=== PATIENT | male | born 2005 | race Caucasian/White ===

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

== ENCOUNTER 2025-01-02 17:28 | Emergency (ER) | payer BC, MEDICAID, SELFPAY ==
[2025-01-02 17:30] VITALS: BP 147/101; PULSE 89; RESP 19; TEMP 36.8; O2SAT 98; BMI 43.3
[2025-01-02 18:09] LABS: Absolute Lymphocyte Count 1.21 X10^3/uL (0.83-4.51); Absolute Neutrophil Count 5.3 X10^3/uL (2.0-7.7); Basophil# 0.03 X10^3/uL; Basophil% 0.4 % (0-1); Eosinophil# 0.02 X10^3/uL; Eosinophils% 0.3 % (0-5); Hematocrit 45.7 % (40-54); Hemoglobin 16.2 g/dL (13.0-16.5); Lymphocyte # 1.21 X10^3/ul (0.83-4.51); Lymphocyte % 16.1 % (19-41); Mean Corp Hgb Conc 35.4 g/dL (32-36); Mean Corpuscular Hgb 29.1 pg (27.0-32.0); Mean Corpuscular Volume 82.2 fL (80-94); Mean Platelet Vol. 10.2 fl (6.2-12.0); Monocyte# 0.88 X10^3/uL; Monocyte% 11.7 % (0-10); NRBC Flagged by Analyzer 0 % (0-5); Neutrophil # 5.34 X10^3/uL (2.7-7.7); Neutrophil % 71.1 % (47-70); Platelet Count 249 K/mm3 (150-450); RBC Distribution Width CV 12.5 % (11.6-14.6); RBC Distribution Width SD 37.6 fl (35.1-43.9); Red Blood Count 5.56 M/mm3 (4.6-6.2); White Blood Count 7.5 K/mm3 (4.4-11.0)
[2025-01-02 18:27] LABS: Amphetamine Urine NEGATIVE (<1000 ng/mL); Barbiturate Urine NEGATIVE (< 200 ng/mL); Benzodiazepine Urine NEGATIVE (< 200 ng/mL); Buprenorphine Urine NEGATIVE (< 200 ng/mL); Cocaine Urine NEGATIVE (< 300 ng/mL); Fentanyl, Urine NEGATIVE; Methadone Urine NEGATIVE (< 300 ng/mL); Opiates Urine NEGATIVE (< 300 ng/mL); Oxycodone, Urine NEGATIVE (< 100 ng/mL); PCP Urine NEGATIVE (< 25 ng/mL); THC Urine PRESUMPTIVE POSITIVE (< 50 ng/mL)
[2025-01-02 18:35] LABS: Alcohol, Blood (Medical)-Serum < 10.1 mg/dL (<=10.0)
[2025-01-02 18:53] LABS: Calcium,Total 9.5 mg/dL (7.6-11.0); Creatinine, Serum 0.72 mg/dL (0.70-1.20); Estimated Creatinine Clearance 237.08 ml/min (50-250); Glucose 103 mg/dL (70-99); Potassium 3.7 mmol/L (3.3-5.1); Sodium Level 140 mmol/L (133-145)
[2025-01-02 18:54] LABS: Chloride 104 mmol/L (98-108)
[2025-01-02 19:05] LABS: Anion Gap 16 (5-15); BUN 8 mg/dL (4-19); BUN/Creat Ratio 11.6 RATIO (10-20); EST Glomerular Filtration Rate 135 (>60)
--- NOTE | 2025-01-02 19:42 | PCA ---
CRISIS CALLED CHART FAXED
--- NOTE | 2025-01-02 19:44 | EX.ED.VIS.PS ---
HPI HPI - Psych History of Present Illness Chief Complaint: Mental Health Narrative Narrative: Patient is a 19-year-old male with past medical anxiety, depression, ADHD, oppositional defiant disorder who presented to the emergency department with a complaint of suicidal homicidal ideation from the crisis counseling center. According to staff the patient made comments while at the crisis counselor that he had not drank alcohol and noted that he was saying that he was going to kill his ex-girlfriend's new boyfriend and then he made comments about killing himself. Patient here in the emergency department denies these accusations he states that how I going to kill someone when I do not have a car when they live 50-minute away and I do not have a gun. Patient states that he is just angry and frustrated. [facility] Medical History Oppositional defiant disorder High-functioning autism spectrum disorder ADHD Anxiety Depression Home Medications ?Medication ?Instructions ?Recorded ?Last Taken ?Type lamotrigine 25 mg tablet (Lamictal) 100 mg PO BID 12/03/21 Unknown History lurasidone 60 mg tablet (Latuda) 80 mg PO 1600 12/03/21 Unknown History sertraline 25 mg tablet 100 mg PO QHS 06/21/22 Unknown History methylphenidate HCl 40 mg biphasic 40 mg PO DAILY 12/26/22 Unknown History 30-70 capsule,extended release Allergy/AdvReac Type Severity Reaction Status Date / Time No Known Allergies Allergy Verified 01/02/25 17:30 Social History Smoking Status: Never smoker substance use type: does not use ROS ROS ED ROS Narrative Constitutional: Denies fevers, chills, headaches, lightness, dizziness Eyes: Denies change in vision double vision blurry vision Cardiovascular: Denies chest pain Respiratory: Denies shortness of breath Abdomen: Denies nausea vomit diarrhea : Denies urinary symptoms Neurological: Denies numbness, weakness, tingling Musculoskeletal: Denies back pain Skin: Denies rashes or lesions EXAM Physical Exam Narrative Exam Narrative: General: Patient lying in bed restlessly did not appear to be in acute distress Head: Atraumatic, normocephalic Eyes: PERRL bilaterally, EOMI bilaterally, no conjunctival injection noted Neck: Soft, supple and trachea midline Cardiovascular: Regular in rhythm Extremities: +5/5 strength noted in the bilateral upper and lower extremities Neurological: Patient follow commands knew that he was at [facility] year is 2024 Skin: Warm, dry, intact no rashes lesions noted Const Vital Signs: 01/02/25 17:30 Temperature 98.2 F Temperature Source Oral Pulse Rate 89 Respiratory Rate 19 H Blood Pressure 147/101 H Blood Pressure Mean 116 Pulse Ox 98 Oxygen Delivery Method Room Air MDM MDM MDM Narrative Medical decision making narrative: Patient is a 19-year-old male who presents to the emergency department the chief complaint of suicidal homicidal ideations. On the differential diagnose includes but not limited to suicidal ideation, depression, homicidal ideation. Patient be medically cleared then be reevaluated by crisis. Patient CBC was reviewed showed no evidence leukocytosis white blood count normal at 7.5, hemosixteen 0.2, platelet count was 249. Patient sodium was 140, potassium normal 3.7, creatinine normal at 0.72. Patient's drug screen showed presumptive cannabis and alcohol level less than 10.1. Patient is medically cleared and will be evaluated by crisis team. They are working on placement. Patient was accepted to [facility] by Dr. Magallanes. Lab Data Labs: Laboratory Results - last 24 hr 01/02/25 01/02/25 17:42 17:50 WBC 7.5 RBC 5.56 Hgb 16.2 Hct 45.7 MCV 82.2 MCH 29.1 MCHC 35.4 RDW Std Deviation 37.6 RDW Coeff of Autumn 12.5 Plt Count 249 MPV 10.2 Immature Gran % (Auto) 0.400 Neut % (Auto) 71.1 H Lymph % (Auto) 16.1 L Sunflower % (Auto) 11.7 H Eos % (Auto) 0.3 Baso % (Auto) 0.4 Absolute Neuts (auto) 5.3 Absolute Lymphs (auto) 1.21 Nucleated RBC % 0 Sodium 140 Potassium 3.7 Chloride 104 Carbon Dioxide 20.0 L Anion Gap 16 H BUN 8 Creatinine 0.72 Estim Creat Clear Calc 237.08 Est GFR (MDRD) Non-Af 135 BUN/Creatinine Ratio 11.6 Glucose 103 H Calcium 9.5 Urine Opiates Screen NEGATIVE U Buprenorphine Qual NEGATIVE Ur Oxycodone Screen NEGATIVE Urine Methadone Screen NEGATIVE Urine Fentanyl Screen NEGATIVE Ur Barbiturates Screen NEGATIVE Ur Phencyclidine Scrn NEGATIVE Ur Amphetamines Screen NEGATIVE U Benzodiazepines Scrn NEGATIVE Urine Cocaine Screen NEGATIVE U Cannabinoids Screen PRESUMPTIVE POSITIVE Ethyl Alcohol < 10.1 Discharge Plan Triage Chief Complaint: Mental Health ED Provider: Marek Booker Dx/Rx/DC Orders Clinical Impression: Suicidal ideation, Homicidal ideation Prescriptions: No Action lamotrigine [Lamictal] 25 mg Tablet 100 mg PO BID lurasidone [Latuda] 60 mg Tablet 80 mg PO 1600 sertraline 25 mg Tablet 100 mg PO QHS methylphenidate HCl 40 mg capsule, ER biphasic 30-70 40 mg PO DAILY Patient Comments: take 1 capsule by mouth every morning for 30 DAYS Primary Care Provider: Manuel Laureano Referrals: Manuel Laureano MD [Primary Care Provider] - Print Language: Wolof Disposition Disposition: Psychiatric Hospital or Unit
--- NOTE | 2025-01-02 20:19 | CM.ED ---
Social Work Patient requesting to know if he was being safety planned. SW let patient know that crisis was working on placement. Patient became very tearful, upset, stating he did not need to be hospitalized and did not understand why he was being sent. SW explained to patient that without being part of the initial assessment, it was difficult to discuss specifics on why patient needed placement. Patient requesting to speak to crisis. Crisis was contacted and told of patients request to speak to them. Crisis stated they would try to either come back in or call patient. Patient notified of same. Jackie Diane, CLIENT SUCCESS SPECIALIST, IRRIGATION EQUIPMENT REMOVER
--- NOTE | 2025-01-02 20:53 | PCA ---
PT ACCEPTED AT [facility] DR.SHAH APONTE [address] [phone]
[2025-01-02 21:52] VITALS: BP 160/93; PULSE 86; RESP 18; TEMP 36.8; O2SAT 99
== END 2025-01-02 22:07 ==
PROVIDERS: Emergency Provider Emergency Medicine; PCP Pediatrics; Visit Provider Emergency Medicine
DX: R45.851 Suicidal ideations (principal); R45.850 Homicidal ideations; F41.9 Anxiety disorder, unspecified; F32.A Depression, unspecified; Z79.899 Other long term (current) drug therapy
CPT/HCPCS: 80048; 80307; 82077; 85025; 99285

== ENCOUNTER 2025-03-17 02:12 | Emergency (ER) | payer BC, MEDICAID, SELFPAY ==
[2025-03-17 02:16] VITALS: BP 141/87; PULSE 120; RESP 18; TEMP 36.8; O2SAT 97; BMI 19.5
--- NOTE | 2025-03-17 03:19 | EX.ED.DYSGE1 ---
HPI History of Present Illness Chief Complaint: Laceration Informant: patient and friend Narrative Narrative: Patient is a 19-year-old male with past medical history of anxiety depression and ADHD. He states that the only coping mechanism that works for him is cutting. He states he has been to [facility] secondary to this without any improvement in his symptoms. He states this evening he became very worked up and in order to help relieve his stress he cut his right forearm. He reports he is left-hand dominant. He states that one of the cuts went a little too deep and he has had brisk bleeding which concerns him and therefore he was brought in with need for potential sutures. He denies numbness tingling or weakness. He denies homicidal or suicidal ideation. He denies history of bleeding disorder or blood thinner use [facility] Medical History Oppositional defiant disorder High-functioning autism spectrum disorder ADHD Anxiety Depression Home Medications ?Medication ?Instructions ?Recorded ?Last Taken ?Type lurasidone 60 mg tablet (Latuda) 80 mg PO 1600 12/03/21 Unknown History methylphenidate HCl 40 mg biphasic 40 mg PO DAILY 12/26/22 Unknown History 30-70 capsule,extended release trazodone 50 mg tablet 50 mg PO QHS 03/17/25 Unknown History Allergy/AdvReac Type Severity Reaction Status Date / Time No Known Allergies Allergy Verified 03/17/25 02:15 Social History Smoking Status: Current every day smoker tobacco type: cigarettes substance use type: does not use ROS ROS ED Constitutional Constitutional ED: Denies chills or fever(s) ENT ENT ED: Denies sore throat Cardiovascular Cardiovascular: Denies chest pain Respiratory/Chest Respiratory/Chest: Denies cough or dyspnea Gastrointestinal Gastrointestinal: Denies abdominal pain, diarrhea, nausea or vomiting Musculoskeletal Musculoskeletal: Reports other Details: Positive right forearm pain Integumentary Reports other Details: Positive right forearm laceration Neurologic Neurologic: Denies headache(s), paresthesias or weakness Psychiatric Psychiatric: Denies suicidal ideation or suicidal thoughts Hematologic/Lymphatic Hematologic/Lymphatic: Denies easy bleeding or easy bruising EXAM Physical Exam Const Vital Signs: 03/17/25 02:16 Temperature 98.3 F Temperature Source Oral Pulse Rate 120 H Respiratory Rate 18 Blood Pressure 141/87 H Blood Pressure Mean 105 Pulse Ox 97 Oxygen Delivery Method Room Air Positive well nourished, well developed and obese General Appearance ED: well developed Nutritional Appearance: obese HEENT HEENT Narrative: Normocephalic atraumatic Eyes PERRL and EOMs intact bilaterally General Eye ED: Negative for scleral icterus Neck supple Resp normal respiratory effort and clear to auscultation bilaterally Cardio regular rate and regular rhythm Extremity Extremity Narrative: Right upper extremity is neurovascularly intact; AIN/PIN are intact and normal. Patient has multiple linear abrasions/lacerations to the volar aspect of his right forearm consistent with history of deliberate self cutting. Around the mid portion of the right forearm is a linear 5 cm laceration that is subcutaneous layer deep with small superficial arterial bleed. No retained foreign body. No secondary findings of infection Compartments are soft and compressible going against compartment syndrome Remainder of the exam is normal. Neuro oriented x3, CN's II-XII intact bilaterally and no sensory deficits noted Sensorium / Orientation: alert Motor Exam: strength 5/5 throughout Psych mental status grossly normal Psych Narrative: No homicidal or suicidal ideation Skin Skin Narrative: Laceration and superficial abrasions to the right forearm consistent with deliberate self cutting as documented above MDM MDM MDM Narrative Medical decision making narrative: Patient presented to the ER after deliberate self cutting. He states this is the only coping mechanism that works for him and he reports he was cutting simply to cope and not in an attempt to hurt himself. At this time as he denies any homicidal or suicidal ideation behind the cutting and states it was simply a coping mechanism there is no need for a psychiatric evaluation or workup. The patient does not have findings of soft tissue infection or compartment syndrome. There is no signs of ligamentous or tendon injury. Therefore do not feel the need for imaging or laboratory study. I did the multiple injuries to his right forearm there is only 1 which is deep and persistently bleeding which will require suture. This does have a superficial arterial injury. However as it is just a superficial vessel and this will clot with closure of the wound. Therefore the wound was closed as documented below the patient is otherwise safe for Patient had the right forearm cleaned with chlorhexidine. The area was anesthetized using 8 mL of 2% lidocaine with epinephrine and local fashion. The wound was copiously irrigated with normal saline then ten 4-0 Ethilon sutures were placed in simple interrupted fashion bringing the wound edges together well with good approximation. The superficial arterial bleeding stopped with epinephrine administration as well as closure of the wound. Patient tolerated procedure well without complication. History & Record Review Discussion w/independent historian: Patient and Friend Discharge Plan Triage Chief Complaint: Laceration ED Provider: Adebayo Tpaia Dx/Rx/DC Orders Clinical Impression: Laceration of forearm, right, Deliberate self-cutting, Anxiety and depression, ADHD Instructions: ED Laceration, All Closures Prescriptions: No Action lurasidone [Latuda] 60 mg Tablet 80 mg PO 1600 methylphenidate HCl 40 mg capsule, ER biphasic 30-70 40 mg PO DAILY Patient Comments: take 1 capsule by mouth every morning for 30 DAYS trazodone 50 mg tablet 50 mg PO QHS Primary Care Provider: Manuel Laureano Referrals: Manuel Laureano MD [Primary Care Provider] - Activity Restrictions/Additional Instructions: Please return to the ER or see your family doctor in 7 days for suture removal Print Language: Greenlandic Disposition Disposition: Home, Self Care Discharge Date/Time: 03/17/25 03:30
--- OUTSIDE RECORDS SUMMARY | 2025-03-17 03:23 | XMS RPT_ITS | CCD ---
Author Organization [facility] Inform ion Partnership [facility] Care Team Providers Care Sales Team Recruiter Name Role Phone RASHAD COHEN, DR SALLIE Ayala Primary Care Physician [phone] SALLIE SOLORZANO Primary Care Unavailable DOT LAGUNAS Consulting Unavailable DOT LAGUNAS Admitting Unavailable DOT LAGUNAS Attending Unavailable Sallie Solorzano MD Primary Care Provider SELF, REFERRED Referring Unavailable RONIT RAYGOZA Attending Unavailable RONIT RAYGOZA Admitting Unavailable MAULIK, FABBY Admitting Unavailable MAULIK, FABBY Consulting Unavailable MAULIK, FABBY Attending Unavailable RASHAD RIZO SALLIE~[phone] [facility] Primary Care Unavailable RASHAD TODD, SALLIE~[phone] RASHAD Consulti ng Unavailable RASHAD, SALLIE Consulting Unavailable BRITTANY MAR APRN Consulting Unavailab brett RIZO, SALLIE~[phone] [facility] Primary Care Unavailable ISABELA LAM~[phone], ISABELA [place] Admitti ng Unavailable ISABELA LAM~[phone], ISABELA [place] Attendi ng Unavailable BRITTANY MAR APRN Consulting Unavailab brett RIZO, SALLIE~[phone] [facility] Primary Care Unavailable BRITTANY MAR Admitting Unavailable BRITTANY MAR Consulting Unavailable BRITTANY MAR Attending Unavailable BRITTANY MAR APRN Consulting Unavailab Mehnaz COHEN, TREVIN Consulting Unavailable BRETT COHEN, TREVIN Consulting Unavailable RASHAD RIZO, SALLIE~[phone] RASHAD Consulti ng Unavailable RASHAD, SALLIE Consulting Unavailable MAULIK, FABBY Consulting Unavailable MAULIK, FABBY Attending Unavailable RASHAD RIZO SALLIE~[phone] [facility] Primary Care Unavailable MAULIK, FABBY Admitting Unavailable RASHAD RIZO SALLIE~[phone] RASHAD Consulti ng Unavailable SALLIE SOLORZANO Consulting Unavailable Sallie Solorzano Primary Care Provider SALLIE SOLORZANO Primary Care Unavailab le MAULIK, FABBY H Attending Unavailable SALLIE SOLORZANO Primary Care Unavailable REFERRED, SELF Referring Unavailable SALLIE SOLORZANO R Primary Care Unavailable MAULIK, FABBY H Attending Unavailable REFERRED, SELF Referring Unavailable MAULIK, FABBY H Attending Unavailable REFERRED, SELF Referring Unavailable SALLIE SOLORZANO R Primary Care Unavailable REFERRED, SELF Referring Unavailable MAULIK, FABBY H Attending Unavailable SALLIE SOLORZANO R Primary Care Unavailable SALLIE SOLORZANO R Primary Care Unavailable SALLIE SOLORZANO Attending Unavailable REFERRED, SELF Referring Unavailable MAULIK, FABBY H Attending Unavailable MAULIK, FABBY H Referring Unavailable SALLIE SOLORZANO Primary Care Unavailable MAULIK, FABBY H Attending Unavailable SALLIE SOLORZANO Primary Care Unavailable REFERRED, SELF Referring Unavailable SALLIE SOLORZANO R Primary Care Unavailable MAULIK, FABBY H Attending Unavailable REFERRED, SELF Referring Unavailable SALLIE SOLORZANO Primary Care Unavailable MAULIK, FABBY H Attending Unavailable REFERRED, SELF Referring Unavailable MAULIK, FABBY H Attending Unavailable REFERRED, SELF Referring Unavailable SALLIE SOLORZANO Primary Care Unavailable Marek Booker Attending Unavailable Sallie Solorzano Primary Care Unavailable Medications Current Medications Medication Drug Class(es) Dates Sig (Normalized) Sig (Original) 200 actuat albuterol 0.09 mg/actuat metered dose inhaler (2 sources) beta2-Adrenergic Agonist Start: 11-22-2006 take 1 puff(s) by inhalation once daily as needed for wheezing ALBUTEROL 90 MCG/ACTUATION AEROSOL INHALER Indications: Cough Inhale one(1) - two(2) puffs four(4) times a day as needed for wheezing and shortness of breath. 1 2 11/22/2006 Active buPROPion hydrochloride 75 mg oral tablet (2 sources) Aminoketone Start: 01-10-2023 buPROPion (WELLBUTRIN) 75 mg tablet 01/10/2023 Active doxycycline hyclate 100 mg oral tablet (2 sources) Tetracycline-class Drug Start: 04-13-2024 End: 04-20-2024 take 1 tablet by mouth twice daily doxycycline (VIBRA-TABS) 100 mg tablet Take 1 tablet by mouth two times a day for 7 days. 14 tablet 0 04/13/2024 04/20/2024 Active fluvoxaMINE maleate 100 mg oral tablet (1 source) Serotonin Reuptake Inhibitor Start: 02-12-2024 End: 05-12-2024 fluvoxaMINE (LUVOX) 100 mg tablet Take by mouth. 0 02/12/2024 05/12/2024 Active guanFACINE 1 mg oral tablet (2 sources) Central alpha-2 Adrenergic Agonist Start: 01-10-2023 guanFACINE (TENEX) 1 mg tablet 01/10/2023 Active lamoTRIgine 100 mg oral tablet (13 sources) Mood Stabilizer, Anti-epileptic Agent Start: 02-12-2024 lamoTRIgine (LAMICTAL) 100 mg tablet Take 50 mg by mouth. 0 02/12/2024 Active Start: 12-26-2022 take 1 tablet by [facility] twice daily lamoTRIgine (LAMICTAL) 100 mg tablet Take 100 mg by mouth twice daily. 12/26/2022 Active Start: 07-19-2022 lamoTRIgine (L aMICtal) tablet 100 mg Start: 04-03-2022 End: 06-14-2022 lamoTRIgine (LaMICtal) table t 100 mg Start: 01-08-2022 take 100 mg by mouth at bedtim e Lamotrigine Active 100 MG PO AT BEDTIME January 08, 2022 3:07pm Start: 12-03-2021 take 3 tablets by mo [facility] once daily Lamotrigine (Lamictal) 25 mg Tablet Active 75 MG PO DAILY December 03, 2021 10:07pm Start: 12-03-2021 take 3 tablets by mo ut twice daily Lamotrigine (Lamictal) 25 mg Tablet Active 75 MG PO TWICE A DAY December 03, 2021 10:07pm Start: 12-03-2021 take 4 tablets by mo ut twice daily Lamotrigine (Lamictal) 25 mg Tablet Active 100 MG PO TWICE A DAY December 03, 2021 12:00am lithium carbonate 300 mg ora l capsule (4 sources) Start: 01-08-2023 lithium carbon ate (ESKALITH) 300 mg capsule 01/08/2023 Active Start: 01-04-2023 lithium carbon ate (ESKALITH) 150 mg capsule 01/04/2023 Active lurasidone hydrochloride 40 mg oral tablet (10 sources) Atypical Antipsychotic Start: 01-04-2023 lurasid one (LATUDA) 40 mg tablet 01/04/2023 Active Start: 08-06-2022 End: 08-06-2022 lurasidone (LATUDA) tablet 8 0 mg Start: 07-19-2022 take 1 tablet by daivd th once daily in the evening Lurasidone HCl (LATUDA) 80 MG TABS Take 1 Tablet (80 mg) by mouth every evening 30 Tablet 2 07/19/2022 Suspended Start: 04-03-2022 take 1 tablet by david th once daily in the evening Lurasidone HCl (LATUDA) 80 MG TABS Take 1 Tablet (80 mg) by mouth every evening 30 Tablet 2 04/03/2022 Suspended Start: 12-03-2021 Lurasidone (La tuda) 60 mg Tablet Active 80 MG PO 1600 December 03, 2021 12:00am 30/70 release 24 hr methylphenidate hydrochloride 40 mg extended release oral capsule (3 sources) Central Nervous System Stimulant Start: 12-26-2022 take 40 mg by mouth once daily Methylphenidate Hcl Active 40 MG PO DAILY December 26, 2022 12:00am Start: 08-04-2022 End: 09-03-2022 take 1 capsule by mouth once daily in the morning methylphenidate HCl (METADATE CD) 30 MG ER capsule Take 1 Capsule (30 mg) by mouth every morning for 30 days 30 Capsule 0 08/04/2022 09/03/2022 Suspended take 1 tablet by david th once daily methylphenidate ER (CONCERTA) 36 mg biphasic tablet Take 36 mg by mouth once daily. 0 Active mupirocin 0.02 mg/mg topical ointment (2 sources) RNA Synthetase Inhibitor Antibacterial Start: 04-13-2024 End: 04-20-2024 mupirocin (BACTROBAN) 2 % ointment Apply to affected area three times a day for 7 days. 15 g 0 04/13/2024 04/20/2024 Active 24 hr QUEtiapine 50 mg extended release oral tablet (1 source) Atypical Antipsychotic Start: 02-12-2024 End: 05-12-2024 QUEtiapine XR (SEROQUEL XR) 50 mg Tb24 Take 100 mg by mouth. 0 02/12/2024 05/12/2024 Active sertraline 50 mg oral tablet (7 sources) Serotonin Reuptake Inhibitor Start: 01-04-2023 sertraline (ZOLOFT) 50 mg tablet 01/04/2023 Active Start: 07-31-2022 End: 08-06-2022 sertraline (ZOLOFT) 50 MG ta blet 50 mg Start: 06-21-2022 take 100 mg by mouth at bedtim e Sertraline Active 100 MG PO AT BEDTIME June 21, 2022 12:00am Start: 06-21-2022 take 50 mg by mouth at bedtime Sertraline Active 50 MG PO AT BEDTIME June 21, 2022 12:00am Start: 06-21-2022 take 25 mg by mouth at bedtime Sertraline Active 25 MG PO AT BEDTIME June 21, 2022 12:00am traZODone hydrochloride 50 mg oral tablet (2 sources) Serotonin Reuptake Inhibitor Start: 01-10-2023 traZODone (DESYREL) 50 mg tablet 01/10/2023 Active Completed/Discontinued Medications Medication Drug Class(es) Dates Sig (Normalized) Sig (Original) acetaminophen 500 mg oral tablet (1 source) Start: 06-13-2022 End: 06-13-2022 acetaminophen (TYLENOL) tablet 500 mg cephalexin 500 mg oral capsule (1 source) Cephalosporin Antibacterial Start: 01-17-2023 End: 01-24-2023 take 1 capsule by mouth three times daily cephALEXin (KEFLEX) 500 mg capsule Take 1 capsule by mouth three times daily for 7 days. 21 capsule 01/17/2023 01/24/2023 escitalopram 5 mg oral tablet (2 sources) Serotonin Reuptake Inhibitor Start: 05-26-2022 End: 06-14-2022 escitalopram (LEXAPRO) tablet 5 mg Problems Active Problems Problem Classification Problem Date Documented Date Episodic/Chronic Anxiety disorders (11 sources) Self inflicted injury; Translations: [Self-inflicted injury] Onset: 06-23-2022 Chronic Attention-deficit, conduct, and disruptive behavior disorders (7 sources) Oppositional defiant disorder; Translations: [Oppositional defiant disorder] Onset: 09-14-2021 Resolved: 01-10-2022 01-10-2022 Chronic Attention-deficit, conduct, and disruptive behavior disorders (2 sources) Attention deficit hyperactivity disorder, combined type; Translations: [Attention-deficit hyperactivity disorder, combined type] Onset: 08-11-2019 04-22-2021 Chronic Disorders usually diagnosed in infancy, childhood, or adolescence (2 sources) Autism spectrum disorder; Translations: [Autistic disorder] Onset: 09-05-2021 09-05-2021 Chronic Miscellaneous mental health disorders (2 sources) Mental disorder; Translations: [Mental disorder, not otherwise specified] Onset: 06-13-2022 06-13-2022 Chronic Mood disorders (20 sources) Depressive disorder; Translations: [Depression with suicidal ideation] Onset: 03-21-2021 Resolved: 01-10-2022 06-14-2022 Chronic Open wounds of extremities (3 sources) Superficial laceration of forearm; Translations: [Laceration without foreign body of unspecified forearm, initial encounter] 07-01-2022 Episodic Open wounds of head; neck; and trunk (3 sources) Laceration of neck; Translations: [Laceration without foreign body of unspecified part of neck, initial encounter] 07-01-2022 Episodic Other aftercare (3 sources) Other fci (current) drug therapy; Translations: [[facility] CURRENT DRUG THERAPY] Onset: 03-22-2023 Episodic Other injuries and conditions due to external causes (5 sources) Abrasion and/or friction burn of multiple sites; Translations: [Unspecified multiple injuries, initial encounter] 12-12-2021 Episodic Other nutritional; endocrine; and metabolic disorders (2 sources) Obesity; Translations: [Obesity, unspecified] Onset: 05-15-2012 10-13-2021 Chronic Other upper respiratory disease (2 sources) Allergic rhinitis; Translations: [Allergic rhinitis, unspecified] Onset: 01-16-2011 10-13-2021 Chronic Residual codes; unclassified (5 sources) Restlessness and agitation; Translations: [Restlessness and agitation] 12-12-2021 Chronic Residual codes; unclassified (1 source) Deliberate self-cutting; Translations: [Other problems related to lifestyle] 12-26-2022 Episodic Screening and history of mental health and substance abuse codes (5 sources) Antisocial behavior; Translations: [Antisocial behavior] 10-23-2021 Episodic Skin and subcutaneous tissue infections (1 source) Infection of skin; Translations: [Local infection of the skin and subcutaneous tissue, unspecified] 04-13-2024 Episodic Suicide and intentional self-inflicted injury (8 sources) Suicidal thoughts; Translations: [Suicidal ideations] Onset: 09-12-2021 Resolved: 01-10-2022 01-10-2022 Episodic Superficial injury; contusion (5 sources) Contusion of hand; Translations: [Contusion of left hand, initial encounter] 12-12-2021 Episodic Unclassified (1 source) OTHER LOW BACK PAIN; Translations: [OTHER LOW BACK PAIN] Onset: 06-26-2023 Unclassified (2 sources) LOW BACK PAIN, UNSPECIFIED; Translations: [LOW BACK PAIN, UNSPECIFIED] Onset: 06-01-2023 Past or Other Problems Problem Classification Problem Date Documented Da te Episodic/Chronic Malaise and fatigue (1 source) Weakness; Translations: [WEAKNESS] Onset: 06-22-2023 Episodic Other connective tissue disease (1 source) Pain in right lower leg; Translations: [PAIN IN RIGHT LOWER LEG] Onset: 06-22-2023 Episodic Other connective tissue disease (1 source) Abnormal posture; Translations: [ABNORMAL POSTURE] Onset: 06-22-2023 Episodic Other eye disorders (2 sources) Mechanical strabismus; Translations: [Mechanical strabismus, unspecified] Onset: 05-04-2010 10-13-2021 Episodic Other nutritional; endocrine; and metabolic disorders (2 sources) Overweight in childhood; Translations: [Body mass index (BMI) pediatric, 85th percentile to less than 95th percentile for age] Onset: 09-22-2015 09-22-2015 Episodic Other upper respiratory disease (2 sources) Allergic rhinitis due to pollen; Translations: [Allergic rhinitis due to pollen] Onset: 05-04-2011 Resolved: 07-21-2015 07-21-2015 Chronic Spondylosis; intervertebral disc disorders; other back problems (3 sources) Lumbago with sciatica, unspecified side; Translations: [LUMBAGO WITH SCIATICA UNS SIDE] Onset: 06-20-2023 Episodic Unclassified (5 sources) Intentional self-harm; Translations: [Intentional self-harm] 10-23-2021 Unclassified (1 source) LOW BACK PAIN, UNSPECIFIED; Translations: [LOW BACK PAIN, UNSPECIFIED] Onset: 05-30-2023 Results Test Name Value Interpretation Reference Range Facility Alcohol, Blood (Medical)-Ser umon 01-02-2025 SERUM ETOH < 10.1 Normal <=10.[address] [facility] Comment on above: Result Comment: This test is for medical purposes only. The legal definition of intoxication varies according to local law. Performed By: #### L 100.0100, L501.9100, L505.5000, L500.2500 #### [facility] [address] [place], [address] Basic Metabolic Profile (BMP )on 01-02-2025 BUN/CRE 11.6 RATIO Normal - [facility] Comment on above: Performed By: #### L 100.0100, L501.9100, L505.5000, L500.2500 #### [facility] [address] [place], [address] GFR/1.73 sq M.predicted among non-blacks MDRD (S/P/Bld) [Vol rate/Area] 135 mL/min/{1.73_m2} Normal >[address] [facility] Comment on above: Result Comment: mL/m in/1.73m2 CKD-EPI Creatinine Equation (2020) Performed By: #### L 100.0100, L501.9100, L505.5000, L500.2500 #### [facility] [address] [place], [address] Urea nitrogen [Mass/Vol] 8 mg/dL Normal - [facility] Comment on above: Performed By: #### L 100.0100, L501.9100, L505.5000, L500.2500 #### [facility] [address] [place], [address] CBC W/Diff, Automatedon 05-0 -2024 Absolute Lymph 1.21 X10 3/uL Normal 0.83-4.[address] [facility] Comment on above: Performed By: #### L 100.0100, L501.9100, L505.5000, L500.2500 #### [facility] [address] [place], [address] Absolute Neut 5.3 X10 3/uL Normal 2.0-7.[address] [facility] Comment on above: Performed By: #### L 100.0100, L501.9100, L505.5000, L500.2500 #### [facility] [address] [place], [address] Basophils/100 WBC (Bld) 0.4 % Normal 0-[address] [facility] Comment on above: Performed By: #### L 100.0100, L501.9100, L505.5000, L500.2500 #### [facility] [address] [place], [address] Eosinophils/100 WBC (Bld) 0.3 % Normal 0-[address] [facility] Comment on above: Performed By: #### L 100.0100, L501.9100, L505.5000, L500.2500 #### [facility] [address] [place], [address] Erythrocyte distribution width (RBC) [Ratio] 12.5 % Normal 11.6-14.[address] [facility] Comment on above: Performed By: #### L 100.0100, L501.9100, L505.5000, L500.2500 #### [facility] [address] [place], [address] Hematocrit (Bld) [Volume fraction] 45.7 % Normal 40-[address] [facility] Comment on above: Performed By: #### L 100.0100, L501.9100, L505.5000, L500.2500 #### [facility] [address] [place], [address] Hemoglobin (Bld) [Mass/Vol] 16.2 g/dL Normal 13.0-16.[address] [facility] Comment on above: Performed By: #### L 100.0100, L501.9100, L505.5000, L500.2500 #### [facility] [address] [place], [address] IG% 0.400 Normal 0.0-0.[address] [facility] Comment on above: Result Comment: IG% - Immature Granulocytes (promyelocytes, myelocytes and metamyelocytes) > 1% indicates that a LEFT SHIFT is Present. Performed By: #### L 100.0100, L501.9100, L505.5000, L500.2500 #### [facility] [address] [facility] [place], [address] Lymphocytes/100 WBC (Bld) 16.1 % Low 19-[address] [facility] Comment on above: Performed By: #### L 100.0100, L501.9100, L505.5000, L500.2500 #### [facility] [address] [place], [address] MCH (RBC) [Entitic mass] 29.1 pg Normal 27.0-32.[address] [facility] Comment on above: Performed By: #### L 100.0100, L501.9100, L505.5000, L500.2500 #### [facility] [address] [place], [address] MCHC (RBC) [Mass/Vol] 35.4 g/dL Normal 32-36 [facility] Comment on above: Performed By: #### L 100.0100, L501.9100, L505.5000, L500.2500 #### [facility] [address] [place], [address] MCV (RBC) [Entitic vol] 82.2 fL Normal 80-[address] [facility] Comment on above: Performed By: #### L 100.0100, L501.9100, L505.5000, L500.2500 #### [facility] [address] [place], [address] Monocytes/100 WBC (Bld) 11.7 % High 0-[address] [facility] Comment on above: Performed By: #### L 100.0100, L501.9100, L505.5000, L500.2500 #### [facility] [address] [place], [address] Neutrophils/100 WBC (Bld) 71.1 % High 47-[address] [facility] Comment on above: Performed By: #### L 100.0100, L501.9100, L505.5000, L500.2500 #### [facility] [address] [place], [address] Nucleated RBC (Bld) [#/Vol] 0 10*3/uL Normal 0-[address] [facility] Comment on above: Performed By: #### L 100.0100, L501.9100, L505.5000, L500.2500 #### [facility] [address] [place], [address] Platelet mean volume (Bld) [Entitic vol] 10.2 fL Normal 6.2-12.[address] [facility] Comment on above: Performed By: #### L 100.0100, L501.9100, L505.5000, L500.2500 #### [facility] [address] [place], [address] Platelets (Bld) [#/Vol] 249 10*3/uL Normal 150-[address] [facility] Comment on above: Performed By: #### L 100.0100, L501.9100, L505.5000, L500.2500 #### [facility] [address] [place], [address] RBC (Bld) [#/Vol] 5.56 10*6/uL Normal 4.6-6.2 [facility] Comment on above: Performed By: #### L 100.0100, L501.9100, L505.5000, L500.2500 #### [facility] [address] [place], [address] RDW SD 37.6 fl Normal 35.1-43.[address] [facility] Comment on above: Performed By: #### L 100.0100, L501.9100, L505.5000, L500.2500 #### [facility] [address] [place], [address] WBC (Bld) [#/Vol] 7.5 10*3/uL Normal 4.4-11.0 [facility] Comment on above: Performed By: #### L 100.0100, L501.9100, L505.5000, L500.2500 #### [facility] [address] [place], [address] Emergency Department Summary on 01-02-2025 Emergency Department Summary [facility] Medical Records Department [address] [place] [address] Emergency Department Summary 01/02/25 MR#: [id number] Acct: [id number] Name: MANNY MCNALLY Rep #: [id number] : 2005 19 From: Marek Booker DO PCP: Dr. Sallie Solorzano MD Status:REG ER Location: ED HPI HPI - Psych History of Present Illness Chief Complaint: Mental Health Narrative Narrative: Patient is a 19-year-old male with past medical anxiety, depression, ADHD, oppositional defiant disorder who presented to the emergency department with a complaint of suicidal homicidal ideation from the crisis counseling center. According to staff the patient made comments while at the crisis counselor that he had not drank alcohol and noted that he was saying that he was going to kill his ex-girlfriend's new boyfriend and then he made comments about killing himself. Patient here in the emergency department denies these accusations he states that how I going to kill someone when I do not have a car when they live 50-minute away and I do not have a gun. Patient states that he is just angry and frustrated. [facility] Medical History Oppositional defiant disorder High-functioning autism spectrum disorder ADHD Anxiety Depression Home Medications ???Medication ???Instructions ???Recorded ???Last Taken ???Type lamotrigine 25 mg tablet (Lamictal) 100 mg PO BID 12/03/21 Unknown History lurasidone 60 mg tablet (Latuda) 80 mg PO 1600 12/03/21 Unknown His tory sertraline 25 mg tablet 100 mg PO QHS 06/21/22 Unknown His tory methylphenidate HCl 40 mg biphasic 40 mg PO DAILY 12/26/22 Unknown History 30-70 capsule,extended release Allergy/AdvReac Type Severity Reaction Status Date / Time No Known Allergies Allergy Verified 01/02/25 17:30 Social History Smoking Status: Never smoker substance use type: does not use ROS ROS ED ROS Narrative Constitutional: Denies fevers, chills, headaches, lightness, dizziness Eyes: Denies change in vision double vision blurry vision Cardiovascular: Denies chest pain Respiratory: Denies shortness of breath Abdomen: Denies nausea vomit diarrhea : Denies urinary symptoms Neurological: Denies numbness, weakness, tingling Musculoskeletal: Denies back pain Skin: Denies rashes or lesions EXAM Physical Exam Narrative Exam Narrative: General: Patient lying in bed restlessly did not appear to be in acute distress Head: Atraumatic, normocephalic Eyes: PERRL bilaterally, EOMI bilaterally, no conjunctival injection noted Neck: Soft, supple and trachea midline Cardiovascular: Regular in rhythm Extremities: +5/5 strength noted in the bilateral upper and lower extremities Neurological: Patient follow commands knew that he was at [facility] year is 2024 Skin: Warm, dry, intact no rashes lesions noted Const Vital Signs: 01/02/25 17:30 Temperature 98.2 F Temperature Source Oral Pulse Rate 89 Respiratory Rate 19 H Blood Pressure 147/101 H Blood Pressure Mean 116 Pulse Ox 98 Oxygen Delivery Method Room Air MDM MDM MDM Narrative Medical decision making narrative: Patient is a 19-year-old male who presents to the emergency department the chief complaint of suicidal homicidal ideations. On the differential diagnose includes but not limited to suicidal ideation, depression, homicidal ideation. Patient be medically cleared then be reevaluated by crisis. Patient CBC was reviewed showed no evidence leukocytosis white blood count normal at 7.5, hemosixteen 0.2, platelet count was 249. Patient sodium was 140, potassium normal 3.7, creatinine normal at 0.72. Patient's drug screen showed presumptive cannabis and alcohol level less than 10.1. Patient is medically cleared and will be evaluated by crisis team. They are working on placement. Patient was accepted to [facility] by Dr. Magallanes. Lab Data Labs: Laboratory Results - last 24 hr 01/02/25 01/02/25 17:42 17:50 WBC 7.5 RBC 5.56 Hgb 16.2 Hct 45.7 MCV 82.2 MCH 29.1 MCHC 35.4 RDW Std Deviation 37.6 RDW Coeff of Autumn 12.5 Plt Count 249 MPV 10.2 Immature Gran % (Auto) 0.400 Neut % (Auto) 71.1 H Lymph % (Auto) 16.1 L [place] % (Auto) 11.7 H Eos % (Auto) 0.3 Baso % (Auto) 0.4 Absolute Neuts (auto) 5.3 Absolute Lymphs (auto) 1.21 Nucleated RBC % 0 Sodium 140 Potassium 3.7 Chloride 104 Carbon Dioxide 20.0 L Anion Gap 16 H BUN 8 Creatinine 0.72 Estim Creat Clear Calc 237.08 Est GFR (MDRD) Non-Af 135 BUN/Creatinine Ratio 11.6 Glucose 103 H Calcium 9.5 Urine Opiates Screen NEGATIVE U Buprenorphine Qual NEGATIVE Ur Oxycodon (more content not included)... Normal [facility] Urine Drug Screen (VISTA)on 01-02-2025 AMPHETAMINES Negative Normal <1000 ng/mL [facility] Comment on above: Performed By: #### L 100.0100, L501.9100, L505.5000, L500.2500 #### [facility] [address] [place], [address] BARBITIURATES Negative Normal < 200 ng/mL [facility] Comment on above: Performed By: #### L 100.0100, L501.9100, L505.5000, L500.2500 #### [facility] [address] [place], [address] BENZODIAZIPINE Negative Normal < 200 ng/mL [facility] Comment on above: Performed By: #### L 100.0100, L501.9100, L505.5000, L500.2500 #### [facility] [address] [place], [address] BUP Ur Drug Scr Negative Normal < 200 ng/mL [facility] Comment on above: Performed By: #### L 100.0100, L501.9100, L505.5000, L500.2500 #### [facility] [place], [place], [facility] COCAINE Negative Normal < 300 ng/mL [facility] Comment on above: Performed By: #### L 100.0100, L501.9100, L505.5000, L500.2500 #### [facility] [address] [place], [address] Fentanyl Negative Normal [facility] Comment on above: Performed By: #### L 100.0100, L501.9100, L505.5000, L500.2500 #### [facility] [place], [place], [facility] METHADONE Negative Normal < 300 ng/mL [facility] Comment on above: Performed By: #### L 100.0100, L501.9100, L505.5000, L500.2500 #### [facility] [address] [place], [address] OPIATES Negative Normal < 300 ng/mL [facility] Comment on above: Performed By: #### L 100.0100, L501.9100, L505.5000, L500.2500 #### [facility] [address] [place], [address] OXYCODONE Negative Normal < 100 ng/mL [facility] Comment on above: Performed By: #### L 100.0100, L501.9100, L505.5000, L500.2500 #### [facility] [address] [place], [address] PCP Negative Normal < 25 ng/mL [facility] Comment on above: Performed By: #### L 100.0100, L501.9100, L505.5000, L500.2500 #### [facility] [address] [place], [address] THC Positive Normal < 50 ng/mL [facility] Comment on above: Result Comment: If c onfirmation testing is needed, a separate order will be required to send out testing to the reference laboratory. Performed By: #### L 100.0100, L501.9100, L505.5000, L500.2500 #### [facility] [address] [place], [address] Progress Noteon 08-20-2024 Staff Certified Nurse Midwife Authentication Interface Message Text Manny Mcnally is a 18 y.o. male patient. PHQ9 Assessment With Score Performed by: Sallie Solorzano MD Authorized by: Sallie Solorzano MD PHQ-9 See PHQ9 Flowsheet Feeling down, depressed, irritable or hopeless: (Patient-Rptd) Not at all Little interest or pleasure in doing things: (Patient-Rptd) Not at all Trouble falling or staying sleep, or sleeping too much: (Patient-Rptd) Not at all Poor appetite, weight loss, or overeating: (Patient-Rptd) Not at all Feeling tired or having little energy: (Patient-Rptd) Not at all Feeling bad about yourself - or feeling that you are a failure, or have let yourself or your family down: (Patient-Rptd) Not at all Trouble concentrating on things, like school work, reading or watching TV: (Patient-Rptd) Not at all Moving or speaking so slowly that other people could have noticed. Or the opposite - being so fidgety or restless that you were moving around a lot more than usual: (Patient-Rptd) Not at all Thoughts that you would be better off , or of hurting yourself in some way: (Patient-Rptd) Not at all In the past year have you felt depressed or sad most days, even if you felt OK sometimes?: (Patient-Rptd) No If you are experiencing any of the problems on this form, how difficult have these problems made it for you to do your work, take care of things at home or get along with other people?: (Patient-Rptd) Not difficult at all Has there been a time in the past month when you have had serious thoughts about ending your life?: (Patient-Rptd) No Have you ever, in your whole life, tried to kill yourself or made a suicide attempt?: (Patient-Rptd) Yes How long ago did you try to kill yourself or make a suicide attempt?: (Patient-Rptd) Over a year ago PHQ-9 Total Score: (Patient-Rptd) 0 Health Risk Assessment - CRAFFT Authorized by: Sallie Solorzano MD CRAFFT Results: 1. Drink more than a few sips of beer, wine, or any drink containing alcohol? Put 0 if none.: (Patient-Rptd) 0 2. Use any marijuana (cannabis, weed, oil, wax, or hash by smoking, vaping, dabbing, or in edibles) or synthetic marijuana (like K2, or Spice)? Put 0 if none.: (Patient-Rptd) 5 3. Use anything else to get high (like other illegal drugs, pills, prescription or deul-ywq-robueyp medications, and things that you sniff, maravilla, vape, or inject)? Put 0 if none.: (Patient-Rptd) 0 4. Use a vaping device* containing nicotine and/or flavors, or use any tobacco products^? Put 0 if none.: (Patient-Rptd) 1 5. Have you ever ridden in a CAR driven by someone (including yourself) who was high or had been using alcohol or drugs?: (Patient-Rptd) No 6. Do you ever use alcohol or drugs to RELAX, feel better about yourself, or fit in?: (Patient-Rptd) No 7. Do you ever use alcohol or drugs while you are by yourself, or ALONE?: (Patient-Rptd) Yes 8. Do you ever FORGET things you did while using alcohol or drugs?: (Patient-Rptd) No 9. Do your FAMILY or FRIENDS ever tell you that you should cut down on your drinking or drug use?: (Patient-Rptd) No 10. Have you ever gotten into TROUBLE while you were using alcohol or drugs?: (Patient-Rptd) No Total Score: : (Patient-Rptd) 1 Electronically signed by: Sallie Solorzano MD Patient ID: Manny Mcnally is a 18 y.o. male. His chief complaint(s) include: 18 YEAR WELL CHILD Assessment 1. Routine general medical examination at a health care facility 2. Need for vaccination 3. Vaccine counseling 4. Abnormal weight gain 5. Chronic abdominal pain Plan Manny was seen today for 18 year well child. Diagnoses and associated orders for this visit: Routine general medical examination at a health care facility - Hearing Screening - PHQ9 Assessment With Score - Health Risk Assessment - CRAFFT Need for vaccination - Influenza Vaccine 0.5 mL >= 6mo Trivalent (PF) Vaccine counseling - Influenza Vaccine 0.5 mL >= 6mo Trivalent (PF) Abnormal weight gain - Hemoglobin A1c; Future - Lipid panel; Future - TSH with Reflex to T4, Free (Lab Collect); Future - Vitamin D 25 hydroxy (Lab Collect); Future - Complete Blood Count with Differential; Future Chronic abdominal pain - Immunoglobulin A; Future - Transglutaminase IgA; Future - Comprehensive metabolic panel (Lab Collect); Future - C-reactive protein (Lab Collect); Future Immunization counseling provided for all components. Return in about 1 year (around 08/20/2025) for well check. Review labs on MyChart Consider Periactin Consider recheck in office Subjective HPI Comments: Dr. Willingham at [facility]- no medications right now--> anxiety, depression, mood stabilizer Lives by himself. History of SI's- friends and family are close if problems. No SI's today Stomach issues persistent- random vomiting diarrhea all the time stomach upset when eats Gets a lot of mucous drainage He is unaccompanied. 18 YEAR WELL CHILD Education: Manny (more content not included)... Intermediate [facility] Progress Noteon 08-14-2024 Staff Certified Nurse Midwife Authentication Interface Message Text This is a telemedicine video visit requested by the patient/guardian that was performed with the patient's location at home and the provider's location at home/office. CHILD PSYCHIATRY OUTPATIENT PROGRESS NOTE DATE OF SERVICE: 08/14/2024 PRESENT AT SESSION: Patient, guardian(s) REASON FOR VISIT: Medication management Any information from the online medical record incorporated into this note has been reviewed with the patient/parent and is denoted in italics. I shared with family that everything discussed in this session with provider is confidential unless it pertains to safety of patient or another, then that would be reportable. This note or partial portions of this note may have been created using a copy forward or copy paste feature, but these portions have been verified and re-edited for accuracy and any portions not in need of editing or reviews are note being used to generate any component necessary for billing purposes. Elements necessary for proper CPT code selection are based only on elements of the visit that are truly unique to this visit. Additionally, dictation software may have been used to complete some of this documentation. SESSION NOTES Patient reports things are getting more difficult. Patient endorses feeling lonely at times. Patient sees aunt all the time. Patient reports having headaches with some frequency. Patient is unsure when things became more difficult. Patient has had some missed appointments. Patient has been able to sleep at bedtime. Patient discontinued medications. I don't have the motivation to do anything. I felt the medications were not doing anything. Patient denies having thoughts of self-harm. It's my motivation, that's the only thing. I have been pretty upbeat. I am not depressed. I see my therapist twice a week. Patient does not want to re-start medications. We discussed not discontinuing medications without medical supervision. Patient reports gaining a little weight, but its been steady. No safety concerns. RISK ASSESSMENT Current Risk Level Low Acute Risk: History of past [id number]- or suicidal thoughts;Protective factors outweigh risk factors Patient able to plan for safety: yes SUICIDAL IDEATION - SINCE LAST VISIT 1. Wish to be ? No If yes, describe: 2. Non-Specific Active Suicidal Thoughts: No If yes, describe: 3. Active Suicidal Ideation with Any Methods (Not Plan) without Intent to Act: If yes, describe: 4. Active Suicidal Ideation with Some Intent to Act, without Specific Plan: If yes, describe: 5. Active Suicidal Ideation with Specific Plan and Intent: If yes, describe: INTENSITY OF IDEATION - SINCE LAST VISIT Most Severe Ideation: Description of Ideation: Frequency: Duration: Controllability: Deterrents: Reasons for Ideation: SUICIDAL BEHAVIOR - SINCE LAST VISIT (Check all that apply, so long as these are separate events; must ask about all types) Actual Attempt: No Total # of Attempts: If yes, describe: Has subject engaged in Non-Suicidal Self-Injurious Behavior? No Interrupted Attempt: No Total # of interrupted: If yes, describe: Aborted or Self-Interrupted Attempt: No Total # of aborted or self-interrupted: If yes, describe: Preparatory Acts or Behavior: No Total # of preparatory acts: If yes, describe: ACTUAL/POTENTIAL LETHALITY - SINCE LAST VISIT Most Lethal Attempt Date: Actual Lethality/Medical Damage: Potential Lethality: [email or web address] VITAL SIGNS & MENTAL STATUS EXAM Wt Readings from Last 3 Encounters: 10/08/23 (!) 120.7 kg (>99%, Z= 2.71)* 01/22/23 (!) 136.2 kg (>99%, Z= 3.19)* 12/25/22 (!) 137 kg (>99%, Z= 3.22)* * Growth percentiles are based on [facility] (Boys, 2-20 Years) data. Temp Readings from Last 3 Encounters: 09/14/22 36.1 C (97 F) (Temporal) 08/12/22 36.3 C (97.3 F) 08/06/22 36.8 C (98.2 F) BP Readings from Last 3 Encounters: 01/22/23 137/65 (95%, Z = 1.64 / 36%, Z = -0.36)* 12/25/22 139/79 (97%, Z = 1.88 / 86%, Z = 1.08)* 08/12/22 (!) 157/78 (>99 %, Z >2.33 / 84%, Z = 0.99)* *BP percentiles are based on the 2017 AAP Clinical Practice Guideline for boys Pulse Readings from Last 3 Encounters: 01/22/23 86 12/25/22 101 08/12/22 89 Gait/Station: Not assessed (telehealth visit) Muscle Strength/Tone: Not assessed (telehealth visit) MENTAL STATUS EXAMINATION: Behavior During Interview: calm and cooperative Appearance: neat/clean and dressed appropriately Eye Contact: appropriate Mood: euthymic Affect: congruent with mood Speech: normal rate and volume Thought Processes: linear, goal directed Associations: Thought Content: Denies SI and HI Perceptual Disturbances: Does not appear to be responding to internal stimuli Cognition: Level of Alertness: full Orientation: fully alert and oriented Attention Span/Concentration: age appropriate, intact Recent & Remote Memory: grossly intact Fund of Knowle (more content not included)... Normal [facility] Progress Noteon 04-25-2024 Staff Certified Nurse Midwife Authentication Interface Message Text This is a telemedicine video visit requested by the patient/guardian that was performed with the patient's location at home and the provider's location at home/office. CHILD PSYCHIATRY OUTPATIENT PROGRESS NOTE DATE OF SERVICE: 04/25/2024 PRESENT AT SESSION: Patient REASON FOR VISIT: Medication management Any information from the online medical record incorporated into this note has been reviewed with the patient/parent and is denoted in italics. I shared with family that everything discussed in this session with provider is confidential unless it pertains to safety of patient or another, then that would be reportable. This note or partial portions of this note may have been created using a copy forward or copy paste feature, but these portions have been verified and re-edited for accuracy and any portions not in need of editing or reviews are note being used to generate any component necessary for billing purposes. Elements necessary for proper CPT code selection are based only on elements of the visit that are truly unique to this visit. Additionally, dictation software may have been used to complete some of this documentation. SESSION NOTES Patient reports doing well overall. I like being on my own and stuff. Patient has some friends at school. Patient reports no concerns today. Sees family. No major concerns today. No safety concerns. Patient reports some OILVER that we made a plan for. RISK ASSESSMENT Current Risk Level Low Acute Risk: History of past [id number]-ej- or suicidal thoughts;Protective factors outweigh risk factors Patient able to plan for safety: yes Safety education provided to guardian: yes SUICIDAL IDEATION - SINCE LAST VISIT 1. Wish to be ? No If yes, describe: 2. Non-Specific Active Suicidal Thoughts: No If yes, describe: 3. Active Suicidal Ideation with Any Methods (Not Plan) without Intent to Act: If yes, describe: 4. Active Suicidal Ideation with Some Intent to Act, without Specific Plan: If yes, describe: 5. Active Suicidal Ideation with Specific Plan and Intent: If yes, describe: INTENSITY OF IDEATION - SINCE LAST VISIT Most Severe Ideation: Description of Ideation: Frequency: Duration: Controllability: Deterrents: Reasons for Ideation: SUICIDAL BEHAVIOR - SINCE LAST VISIT (Check all that apply, so long as these are separate events; must ask about all types) Actual Attempt: No Total # of Attempts: If yes, describe: Has subject engaged in Non-Suicidal Self-Injurious Behavior? No Interrupted Attempt: No Total # of interrupted: If yes, describe: Aborted or Self-Interrupted Attempt: No Total # of aborted or self-interrupted: If yes, describe: Preparatory Acts or Behavior: No Total # of preparatory acts: If yes, describe: ACTUAL/POTENTIAL LETHALITY - SINCE LAST VISIT Most Lethal Attempt Date: Actual Lethality/Medical Damage: Potential Lethality: [email or web address] VITAL SIGNS & MENTAL STATUS EXAM Wt Readings from Last 3 Encounters: 10/08/23 (!) 120.7 kg (>99%, Z= 2.71)* 01/22/23 (!) 136.2 kg (>99%, Z= 3.19)* 12/25/22 (!) 137 kg (>99%, Z= 3.22)* * Growth percentiles are based on [facility] (Boys, 2-20 Years) data. Temp Readings from Last 3 Encounters: 09/14/22 36.1 C (97 F) (Temporal) 08/12/22 36.3 C (97.3 F) 08/06/22 36.8 C (98.2 F) BP Readings from Last 3 Encounters: 01/22/23 137/65 (95%, Z = 1.64 / 36%, Z = -0.36)* 12/25/22 139/79 (97%, Z = 1.88 / 86%, Z = 1.08)* 08/12/22 (!) 157/78 (>99 %, Z >2.33 / 84%, Z = 0.99)* *BP percentiles are based on the 2017 AAP Clinical Practice Guideline for boys Pulse Readings from Last 3 Encounters: 01/22/23 86 12/25/22 101 08/12/22 89 Gait/Station: Not assessed (telehealth visit) Muscle Strength/Tone: Not assessed (telehealth visit) MENTAL STATUS EXAMINATION: Behavior During Interview: calm and cooperative Appearance: neat/clean and dressed appropriately Eye Contact: appropriate Mood: euthymic Affect: congruent with mood Speech: normal rate and volume Thought Processes: linear, goal directed Associations: Thought Content: Denies SI and HI Perceptual Disturbances: Does not appear to be responding to internal stimuli Cognition: Level of Alertness: full Orientation: fully alert and oriented Attention Span/Concentration: age appropriate, intact Recent & Remote Memory: grossly intact Fund of Knowledge/Estimated intelligence: appears average Language: full Insight: good Judgment: good TREATMENT HISTORY Mental Health Treatment History: (Comment: PHQ-9 and MARILEE-7 scores are 16 and 11 respectively on 09/05/2021 Aunt reported that patient refuses to see in-home therapist when she comes. Patient denied refusing to see therapist, but stated that he is on his phone when she is at the home and he refuses to put it down.) How many times has patient attended a self-help program in the last 30 days (ex. AA, ALATEEN, etc.)?: no attendance (more content not included)... Normal [facility] CNOVon 04-13-2024 CNOV Office Visit ([facility] ) -------- MANNY MCNALLY ([id number]) 5 M Date Time Provider Department 04/13/24 2:00 PM CHRISTOS OROZCO [facility] During your visit today, we recorded the following information about you: Temperature Pulse Respiration Blood pressure 98.1 degrees 65/minute 16/minute 132/84 Weight 124.6 kg Christos Orozco PA 04/13/2024 2:11 PM Signed This note was created using Giveit[employer]. Subjective Manny Mcnally is a 18 year old male. HPI 18-year-old male presents for rash to left leg. Patient has had a rash on his left leg for the past 5 to 6 days. He states it is itchy. No drainage from the area. He thinks it might be a bug bite. He does have some redness of the area. He has not put anything on it. No fevers. No rash anywhere else. No new lotions, detergents, body washes or medication. No other complaint. PAST MEDICAL HISTORY No date: Routine or ritual circumcision No date: Unspecified and jaundice PAST SURGICAL HISTORY No date: CIRCUMCISION W/CLAMP/OTH DEV W/BLOCK ALLERGIES Patient has no known allergies. MEDICATIONS methylphenidate ER (CONCERTA) 36 mg biphasic tablet Take 36 mg by mouth once daily. fluvoxaMINE (LUVOX) 100 mg tablet Take by mouth. lamoTRIgine (LAMICTAL) 100 mg tablet Take 50 mg by mouth. QUEtiapine XR (SEROQUEL XR) 50 mg Tb24 Take 100 mg by mouth. buPROPion (WELLBUTRIN) 75 mg tablet lamoTRIgine (LAMICTAL) 100 mg tablet Take 100 mg by mouth twice daily. lithium carbonate (ESKALITH) 150 mg capsule lithium carbonate (ESKALITH) 300 mg capsule doxycycline (VIBRA-TABS) 100 mg tablet Take 1 tablet by mouth two times a day for 7 days. mupirocin (BACTROBAN) 2 % ointment Apply to affected area three times a day for 7 days. guanFACINE (TENEX) 1 mg tablet (Patient not taking: Reported on 04/13/2024) lurasidone (LATUDA) 40 mg tablet (Patient not taking: Reported on 01/24/2023) sertraline (ZOLOFT) 50 mg tablet (Patient not taking: Reported on 01/24/2023) traZODone (DESYREL) 50 mg tablet (Patient not taking: Reported on 04/13/2024) ALBUTEROL 90 MCG/ACTUATION AEROSOL INHALER Inhale one(1) - two(2) puffs four(4) times a day as needed for wheezing and shortness of breath. (Patient not taking: Reported on 01/24/2023) FAMILY HISTORY Problem Relation Age of Onset other (ASTHMATIC EMPHYSEMA [Other]) Maternal Grandmother other (high cholesterol [Other]) Maternal Grandmother other (alcholic [Other]) Maternal Grandfather Asthma Mother other (anemia [Other]) Mother other (scoliosis [Other]) Father other (degenerative disc disease [Other]) Father other (shermans disease [Other]) Father other (irritable boewl [Other]) Father Heart Paternal Grandmother Heart Paternal Grandfather Cancer Other great grand-parents Social History Tobacco Use Smoking status: Never Passive exposure: Yes Smokeless tobacco: Never Tobacco comments: parents smoke Review of Systems Constitutional: Negative for chills and fever. HENT: Negative for congestion and sore throat. Respiratory: Negative for cough and shortness of breath. Gastrointestinal: Negative for diarrhea and vomiting. Skin: Positive for rash. Objective BP 132/84 Pulse 65 Temp 36.7 ?C (98.1 ?F) (Tympanic) Resp 16 Wt 124.6 kg (274 lb 11.1 oz) SpO2 98% Physical Exam Vitals and nursing note reviewed. Constitutional: General: He is not in acute distress. Appearance: Normal appearance. He is not toxic-appearing. Cardiovascular: Rate and Rhythm: Normal rate and regular rhythm. Pulmonary: Effort: Pulmonary effort is normal. Breath sounds: Normal breath sounds. Skin: General: Skin is warm and dry. Findings: Rash present. Rash is scaling. Comments: Erythematous circular rash noted to left lateral knee. Some scaling/scabbing noted. No fluctuance or abscess. Not consistent with bull's-eye lesion. No lymphatic streaking. Neurological: Mental Status: He is alert. Assessment and Plan ASSESSMENT/PLAN: 1. Skin infection - ICD9: 686.9, ICD10: L08.9 - Begin treatment with doxycycline -Rx for mupirocin - No lymphangetic streaking, this was defined for patient to watch for and to seek medical care immediately if appears Diagnosis and treatment plan were discussed and questions were answered to the patient's satisfaction. Pt acknowledged understanding of concepts and follow up plan. Specific signs and symptoms that would indicate the need for higher level of care were discussed in detail warranting prompt ER evaluation. LESLIE Conroy Allergies As of Date: 04/13/2024 (No Known Allergies) Date Reviewed: 04/13/2024 Reviewed by: Vibha Bryant LPN - Fully Assessed Reason for Visit: Rash [1087] Cmt: Rash on left leg x 5 days Primary Visit Diagnosis:Skin infection [L08.9] Order(s):doxycycline (VIBRA-TABS) 100 mg tabletTake 1 tablet by mouth two times a day for 7 (more content not included)... Normal [facility] Progress Noteon 02-12-2024 Staff Certified Nurse Midwife Authentication Interface Message Text This is a telemedicine video visit requested by the patient/guardian that was performed with the patient's location at home and the provider's location at home/office. CHILD PSYCHIATRY OUTPATIENT PROGRESS NOTE DATE OF SERVICE: 02/12/2024 PRESENT AT SESSION: Patient REASON FOR VISIT: Medication management Any information from the online medical record incorporated into this note has been reviewed with the patient/parent and is denoted in italics. I shared with family that everything discussed in this session with provider is confidential unless it pertains to safety of patient or another, then that would be reportable. This note or partial portions of this note may have been created using a copy forward or copy paste feature, but these portions have been verified and re-edited for accuracy and any portions not in need of editing or reviews are note being used to generate any component necessary for billing purposes. Elements necessary for proper CPT code selection are based only on elements of the visit that are truly unique to this visit. Additionally, dictation software may have been used to complete some of this documentation. SESSION NOTES Patient reports it can be overwhelming if you let it be. Patient denies self-harm thoughts and is managing his own medications. He sees aunt who takes him grocery shopping. He sees sister, too. He goes to aunt's house as well. Patient has made friends in the home he is in. Mood-brown patient reports doing well. We discussed reducing polypharmacy. Patient is in his own apartment now. Patient denies getting as many headaches anymore. It's probably the quiet. Patient denies having any obsessive thoughts. No relationships at this time. Patient is going to start a work-program Patient denies needing medication changes at this time. However, we discussed reducing Lamictal to reduce polypharmacy (vs lithium, unclear which / if any have been helpful). RISK ASSESSMENT Current Risk Level Low Acute Risk: History of past vtrtsu-em-pc- or suicidal thoughts;Protective factors outweigh risk factors Patient able to plan for safety: yes Safety education provided to guardian: yes SUICIDAL IDEATION - SINCE LAST VISIT 1. Wish to be ? No If yes, describe: 2. Non-Specific Active Suicidal Thoughts: No If yes, describe: 3. Active Suicidal Ideation with Any Methods (Not Plan) without Intent to Act: If yes, describe: 4. Active Suicidal Ideation with Some Intent to Act, without Specific Plan: If yes, describe: 5. Active Suicidal Ideation with Specific Plan and Intent: If yes, describe: INTENSITY OF IDEATION - SINCE LAST VISIT Most Severe Ideation: Description of Ideation: Frequency: Duration: Controllability: Deterrents: Reasons for Ideation: SUICIDAL BEHAVIOR - SINCE LAST VISIT (Check all that apply, so long as these are separate events; must ask about all types) Actual Attempt: No Total # of Attempts: If yes, describe: Has subject engaged in Non-Suicidal Self-Injurious Behavior? No Interrupted Attempt: No Total # of interrupted: If yes, describe: Aborted or Self-Interrupted Attempt: No Total # of aborted or self-interrupted: If yes, describe: Preparatory Acts or Behavior: No Total # of preparatory acts: If yes, describe: ACTUAL/POTENTIAL LETHALITY - SINCE LAST VISIT Most Lethal Attempt Date: Actual Lethality/Medical Damage: Potential Lethality: [email or web address] VITAL SIGNS & MENTAL STATUS EXAM Wt Readings from Last 3 Encounters: 10/08/23 (!) 120.7 kg (>99%, Z= 2.71)* 01/22/23 (!) 136.2 kg (>99%, Z= 3.19)* 12/25/22 (!) 137 kg (>99%, Z= 3.22)* * Growth percentiles are based on CDC (Boys, 2-20 Years) data. Temp Readings from Last 3 Encounters: 09/14/22 36.1 C (97 F) (Temporal) 08/12/22 36.3 C (97.3 F) 08/06/22 36.8 C (98.2 F) BP Readings from Last 3 Encounters: 01/22/23 137/65 (95%, Z = 1.64 / 36%, Z = -0.36)* 12/25/22 139/79 (97%, Z = 1.88 / 86%, Z = 1.08)* 08/12/22 (!) 157/78 (>99 %, Z >2.33 / 84%, Z = 0.99)* *BP percentiles are based on the 2017 AAP Clinical Practice Guideline for boys Pulse Readings from Last 3 Encounters: 01/22/23 86 12/25/22 101 08/12/22 89 Gait/Station: Not assessed (telehealth visit) Muscle Strength/Tone: Not assessed (telehealth visit) MENTAL STATUS EXAMINATION: Behavior During Interview: calm and cooperative Appearance: neat/clean and dressed appropriately Eye Contact: appropriate Mood: euthymic Affect: congruent with mood Speech: normal rate and volume Thought Processes: linear, goal directed Associations: Thought Content: Denies SI and HI Perceptual Disturbances: Does not appear to be responding to internal stimuli Cognition: Level of Alertness: full Orientation: fully alert and oriented Attention Span/Concentration: age appropriate, intact Recent & Remote Memory: grossly intact Fund of Knowledge/Estimated intelligence: appears av (more content not included)... Normal [facility] Progress Noteon 12-27-2023 Staff Certified Nurse Midwife Authentication Interface Message Text This is a telemedicine video visit requested by the patient that was performed with the patient's location at [facility] and the provider's location at home/office. CHILD PSYCHIATRY OUTPATIENT PROGRESS NOTE DATE OF SERVICE: 12/27/2023 PRESENT AT SESSION: Patient REASON FOR VISIT: Medication management Any information from the online medical record incorporated into this note has been reviewed with the patient/parent and is denoted in italics. I shared with family that everything discussed in this session with provider is confidential unless it pertains to safety of patient or another, then that would be reportable. This note or partial portions of this note may have been created using a copy forward or copy paste feature, but these portions have been verified and re-edited for accuracy and any portions not in need of editing or reviews are note being used to generate any component necessary for billing purposes. Elements necessary for proper CPT code selection are based only on elements of the visit that are truly unique to this visit. Additionally, dictation software may have been used to complete some of this documentation. SESSION NOTES Patient reports having had a good birthday. Patient report sleep is still a struggle. Other than that, patient reports doing very well overall. Getting along with family. No mood or behavioral concerns. No safety concerns. Eating well. Maintaining weight loss. RISK ASSESSMENT Current Risk Level Low Acute Risk: History of past qcftxp-kg-vk- or suicidal thoughts;Protective factors outweigh risk factors Patient able to plan for safety: yes SUICIDAL IDEATION - SINCE LAST VISIT 1. Wish to be ? No If yes, describe: 2. Non-Specific Active Suicidal Thoughts: No If yes, describe: 3. Active Suicidal Ideation with Any Methods (Not Plan) without Intent to Act: If yes, describe: 4. Active Suicidal Ideation with Some Intent to Act, without Specific Plan: If yes, describe: 5. Active Suicidal Ideation with Specific Plan and Intent: If yes, describe: INTENSITY OF IDEATION - SINCE LAST VISIT Most Severe Ideation: Description of Ideation: Frequency: Duration: Controllability: Deterrents: Reasons for Ideation: SUICIDAL BEHAVIOR - SINCE LAST VISIT (Check all that apply, so long as these are separate events; must ask about all types) Actual Attempt: No Total # of Attempts: If yes, describe: Has subject engaged in Non-Suicidal Self-Injurious Behavior? No Interrupted Attempt: No Total # of interrupted: If yes, describe: Aborted or Self-Interrupted Attempt: No Total # of aborted or self-interrupted: If yes, describe: Preparatory Acts or Behavior: No Total # of preparatory acts: If yes, describe: ACTUAL/POTENTIAL LETHALITY - SINCE LAST VISIT Most Lethal Attempt Date: Actual Lethality/Medical Damage: Potential Lethality: [email or web address] VITAL SIGNS & MENTAL STATUS EXAM Wt Readings from Last 3 Encounters: 10/08/23 (!) 120.7 kg (>99%, Z= 2.71)* 01/22/23 (!) 136.2 kg (>99%, Z= 3.19)* 12/25/22 (!) 137 kg (>99%, Z= 3.22)* * Growth percentiles are based on CDC (Boys, 2-20 Years) data. Temp Readings from Last 3 Encounters: 09/14/22 36.1 C (97 F) (Temporal) 08/12/22 36.3 C (97.3 F) 08/06/22 36.8 C (98.2 F) BP Readings from Last 3 Encounters: 01/22/23 137/65 (95%, Z = 1.64 / 36%, Z = -0.36)* 12/25/22 139/79 (97%, Z = 1.88 / 86%, Z = 1.08)* 08/12/22 (!) 157/78 (>99 %, Z >2.33 / 84%, Z = 0.99)* *BP percentiles are based on the 2017 AAP Clinical Practice Guideline for boys Pulse Readings from Last 3 Encounters: 01/22/23 86 12/25/22 101 08/12/22 89 Gait/Station: Not assessed (telehealth visit) Muscle Strength/Tone: Not assessed (telehealth visit) MENTAL STATUS EXAMINATION: Behavior During Interview: calm and cooperative Appearance: neat/clean and dressed appropriately Eye Contact: appropriate Mood: euthymic Affect: congruent with mood Speech: normal rate and volume Thought Processes: linear, goal directed Associations: Thought Content: Denies SI and HI Perceptual Disturbances: Does not appear to be responding to internal stimuli Cognition: Level of Alertness: full Orientation: fully alert and oriented Attention Span/Concentration: age appropriate, intact Recent & Remote Memory: grossly intact Fund of Knowledge/Estimated intelligence: appears average Language: full Insight: good Judgment: good TREATMENT HISTORY Mental Health Treatment History: (Comment: PHQ-9 and MARILEE-7 scores are 16 and 11 respectively on 09/05/2021 Aunt reported that patient refuses to see in-home therapist when she comes. Patient denied refusing to see therapist, but stated that he is on his phone when she is at the home and he refuses to put it down.) How many times has patient attended a self-help program in the last 30 days (ex. AA, ALATEEN, etc.)?: no attendance Is patient currently in therapy: Yes (more content not included)... Normal [facility] Progress Noteon 11-29-2023 Staff Certified Nurse Midwife Authentication Interface Message Text This is a telemedicine video visit requested by the patient/guardian that was performed with the patient's location at facility and the provider's location at home/office. CHILD PSYCHIATRY OUTPATIENT PROGRESS NOTE DATE OF SERVICE: 11/29/2023 PRESENT AT SESSION: Patient, guardian messaged/called REASON FOR VISIT: Medication management Any information from the online medical record incorporated into this note has been reviewed with the patient/parent and is denoted in italics. I shared with family that everything discussed in this session with provider is confidential unless it pertains to safety of patient or another, then that would be reportable. This note or partial portions of this note may have been created using a copy forward or copy paste feature, but these portions have been verified and re-edited for accuracy and any portions not in need of editing or reviews are note being used to generate any component necessary for billing purposes. Elements necessary for proper CPT code selection are based only on elements of the visit that are truly unique to this visit. Additionally, dictation software may have been used to complete some of this documentation. SESSION NOTES Patient is at the new placement, it's alright. Patient is getting along with others, everyone but kid. Patient reports he thinks he is doing better. My trazodone, I still don't sleep when I take it. I think it makes me more depressed. Patient reports trazodone is not helping him. We discussed Seroquel for patient. No safety, sleep or appetite concerns. Patient wants to prioritize sleep. RISK ASSESSMENT Current Risk Level Low Acute Risk: History of past bdzjfg-au-ke- or suicidal thoughts;Protective factors outweigh risk factors Other: No history of a wish to be or thoughts of suicide Patient able to plan for safety: yes Safety education provided to guardian: yes SUICIDAL IDEATION - SINCE LAST VISIT 1. Wish to be ? No If yes, describe: 2. Non-Specific Active Suicidal Thoughts: No If yes, describe: 3. Active Suicidal Ideation with Any Methods (Not Plan) without Intent to Act: If yes, describe: 4. Active Suicidal Ideation with Some Intent to Act, without Specific Plan: If yes, describe: 5. Active Suicidal Ideation with Specific Plan and Intent: If yes, describe: INTENSITY OF IDEATION - SINCE LAST VISIT Most Severe Ideation: Description of Ideation: Frequency: Duration: Controllability: Deterrents: Reasons for Ideation: SUICIDAL BEHAVIOR - SINCE LAST VISIT (Check all that apply, so long as these are separate events; must ask about all types) Actual Attempt: No Total # of Attempts: If yes, describe: Has subject engaged in Non-Suicidal Self-Injurious Behavior? No Interrupted Attempt: No Total # of interrupted: If yes, describe: Aborted or Self-Interrupted Attempt: No Total # of aborted or self-interrupted: If yes, describe: Preparatory Acts or Behavior: No Total # of preparatory acts: If yes, describe: ACTUAL/POTENTIAL LETHALITY - SINCE LAST VISIT Most Lethal Attempt Date: Actual Lethality/Medical Damage: Potential Lethality: [email or web address] VITAL SIGNS & MENTAL STATUS EXAM Wt Readings from Last 3 Encounters: 10/08/23 (!) 120.7 kg (>99%, Z= 2.71)* 01/22/23 (!) 136.2 kg (>99%, Z= 3.19)* 12/25/22 (!) 137 kg (>99%, Z= 3.22)* * Growth percentiles are based on [facility] (Boys, 2-20 Years) data. Temp Readings from Last 3 Encounters: 09/14/22 36.1 C (97 F) (Temporal) 08/12/22 36.3 C (97.3 F) 08/06/22 36.8 C (98.2 F) BP Readings from Last 3 Encounters: 01/22/23 137/65 (95%, Z = 1.64 / 36%, Z = -0.36)* 12/25/22 139/79 (97%, Z = 1.88 / 86%, Z = 1.08)* 08/12/22 (!) 157/78 (>99 %, Z >2.33 / 84%, Z = 0.99)* *BP percentiles are based on the 2017 AAP Clinical Practice Guideline for boys Pulse Readings from Last 3 Encounters: 01/22/23 86 12/25/22 101 08/12/22 89 Gait/Station: Not assessed (telehealth visit) Muscle Strength/Tone: Not assessed (telehealth visit) MENTAL STATUS EXAMINATION: Behavior During Interview: calm and cooperative Appearance: neat/clean and dressed appropriately Eye Contact: appropriate Mood: euthymic Affect: congruent with mood Speech: normal rate and volume Thought Processes: linear, goal directed Associations: Thought Content: Denies SI and HI Perceptual Disturbances: Does not appear to be responding to internal stimuli Cognition: Level of Alertness: full Orientation: fully alert and oriented Attention Span/Concentration: age appropriate, intact Recent & Remote Memory: grossly intact Fund of Knowledge/Estimated intelligence: appears average Language: full Insight: good Judgment: good TREATMENT HISTORY Mental Health Treatment History: (Comment: PHQ-9 and MARILEE-7 scores are 16 and 11 respectively on 09/05/2021 Aunt reported that patient refuses to see in-home therapist when she comes. Patient denie (more content not included)... Normal [facility] Progress Noteon 09-20-2023 Staff Certified Nurse Midwife Authentication Interface Message Text This is a telemedicine video visit requested by the patient/guardian that was performed with the patient's location at home and the provider's location at home or hospital office. CHILD PSYCHIATRY OUTPATIENT PROGRESS NOTE DATE OF SERVICE: 09/20/2023 PRESENT AT SESSION: Patient, guardian(s); Nurse; Clerk Manager REASON FOR VISIT: Medication management Any information from the online medical record incorporated into this note has been reviewed with the patient/parent and is denoted in italics. I shared with family that everything discussed in this session with provider is confidential unless it pertains to safety of patient or another, then that would be reportable. This note or partial portions of this note may have been created using a copy forward or copy paste feature, but these portions have been verified and re-edited for accuracy and any portions not in need of editing or reviews are note being used to generate any component necessary for billing purposes. Elements necessary for proper CPT code selection are based only on elements of the visit that are truly unique to this visit. Additionally, dictation software may have been used to complete some of this documentation. SESSION NOTES Overall, from what I have observed, his overall demeanor and state of mind has greatly improved. He was showing a lot more depressive symptoms. He was having more harder days. As of lately too, he is more positive, engaged, and not quite as tired. He is not sleeping as much. I think overall his demeanor and mood have improved - information from gate shear operator. Patient can have headaches. Patient can have headaches throughout the day. No safety, appetite or sleep concerns. RISK ASSESSMENT Current Risk Level Low Acute Risk: History of past mqychh-ye-do- or suicidal thoughts;Protective factors outweigh risk factors Patient able to plan for safety: yes SUICIDAL IDEATION - SINCE LAST VISIT 1. Wish to be ? No If yes, describe: 2. Non-Specific Active Suicidal Thoughts: No If yes, describe: 3. Active Suicidal Ideation with Any Methods (Not Plan) without Intent to Act: If yes, describe: 4. Active Suicidal Ideation with Some Intent to Act, without Specific Plan: If yes, describe: 5. Active Suicidal Ideation with Specific Plan and Intent: If yes, describe: INTENSITY OF IDEATION - SINCE LAST VISIT Most Severe Ideation: Description of Ideation: Frequency: Duration: Controllability: Deterrents: Reasons for Ideation: SUICIDAL BEHAVIOR - SINCE LAST VISIT (Check all that apply, so long as these are separate events; must ask about all types) Actual Attempt: No Total # of Attempts: If yes, describe: Has subject engaged in Non-Suicidal Self-Injurious Behavior? No Interrupted Attempt: No Total # of interrupted: If yes, describe: Aborted or Self-Interrupted Attempt: No Total # of aborted or self-interrupted: If yes, describe: Preparatory Acts or Behavior: No Total # of preparatory acts: If yes, describe: ACTUAL/POTENTIAL LETHALITY - SINCE LAST VISIT Most Lethal Attempt Date: Actual Lethality/Medical Damage: Potential Lethality: [email or web address] VITAL SIGNS & MENTAL STATUS EXAM Wt Readings from Last 3 Encounters: 01/22/23 (!) 136.2 kg (>99 %, Z= 3.19)* 12/25/22 (!) 137 kg (>99 %, Z= 3.22)* 09/14/22 (!) 135.6 kg (>99 %, Z= 3.25)* * Growth percentiles are based on CDC (Boys, 2-20 Years) data. Temp Readings from Last 3 Encounters: 09/14/22 36.1 C (97 F) (Temporal) 08/12/22 36.3 C (97.3 F) 08/06/22 36.8 C (98.2 F) BP Readings from Last 3 Encounters: 01/22/23 137/65 (95 %, Z = 1.64 / 36 %, Z = -0.36)* 12/25/22 139/79 (97 %, Z = 1.88 / 86 %, Z = 1.08)* 08/12/22 (!) 157/78 (>99 %, Z >2.33 / 84 %, Z = 0.99)* *BP percentiles are based on the 2017 AAP Clinical Practice Guideline for boys Pulse Readings from Last 3 Encounters: 01/22/23 86 12/25/22 101 08/12/22 89 Gait/Station: Not assessed (telehealth visit) Muscle Strength/Tone: Not assessed (telehealth visit) MENTAL STATUS EXAMINATION: Behavior During Interview: calm and cooperative Appearance: neat/clean and dressed appropriately Eye Contact: appropriate Mood: euthymic Affect: congruent with mood Speech: normal rate and volume Thought Processes: linear, goal directed Associations: Thought Content: Denies SI and HI Perceptual Disturbances: Does not appear to be responding to internal stimuli Cognition: Level of Alertness: full Orientation: fully alert and oriented Attention Span/Concentration: age appropriate, intact Recent & Remote Memory: grossly intact Fund of Knowledge/Estimated intelligence: appears average Language: full Insight: good Judgment: good TREATMENT HISTORY Mental Health Treatment History: (Comment: PHQ-9 and MARILEE-7 scores are 16 and 11 respectively on 09/05/2021 Aunt reported that patient refuses to see in-home therapist when she comes. Patient denied ref (more content not included)... Normal [facility] CBC W Auto Differential pane l (Bld)on 08-15-2023 Basophils (Bld) [#/Vol] 0.04 10*3/uL Normal <=0.70 [facility] Comment on above: Performed By: #### 5 7021-8 #### [place] [address] Medical Sonographer - Demetra CORTEZ [id number] Basophils/100 WBC (Bld) 0.5 % Normal <=2.0 [facility] Comment on above: Performed By: #### 5 7021-8 #### [place] [address] [facility] [id number] Eosinophils (Bld) [#/Vol] 0.08 10*3/uL Normal <=0.70 [facility] Comment on above: Performed By: #### 5 7021-8 #### [facility] [address] [place] [address] Medical Sonographer - [facility] RAFALIA [id number] Eosinophils/100 WBC (Bld) 1.0 % Normal <=10.0 [facility] Comment on above: Performed By: #### 5 7021-8 #### [place] [id number] Medical Sonographer - Demetra LYLESIA [id number] Erythrocyte distribution width (RBC) [Entitic vol] 40.0 fL Normal 35.1-43.9 [facility] Comment on above: Performed By: #### 5 7021-8 #### [facility] [address] [place] [address] Medical Sonographer - Demetra LYLESIA [id number] Hematocrit (Bld) [Volume fraction] 46.2 % Normal 40.0-54.0 [facility] Comment on above: Performed By: #### 5 7021-8 #### [place] [address] [place] [address] Medical Sonographer - Demetra LYLESIA [id number] Hemoglobin (Bld) [Mass/Vol] 16.0 g/dL Normal 14.0-18.0 [facility] Comment on above: Performed By: #### 5 7021-8 #### [place] [address] [place] [address] Medical Sonographer - Demetra Daniel CLIA [id number] Immature granulocytes (Bld) [#/Vol] 0.03 10*3/uL Normal <=0.10 [facility] Comment on above: Performed By: #### 5 7021-8 #### [place] [address] [place] [address] Medical Sonographer - Demetra Daniel CLIA [id number] Immature granulocytes/100 WBC (Bld) 0.40 % Normal <=1.50 [facility] Comment on above: Performed By: #### 5 7021-8 #### [place] [address] [place] [address] Medical Sonographer - Demetra Daniel CLIA [id number] Lymphocytes (Bld) [#/Vol] 2.14 10*3/uL Normal 1.20-3.40 [facility] Comment on above: Performed By: #### 5 7021-8 #### [place] [address] [place] [address] Medical Sonographer - Demetra Daniel CLIA [id number] Lymphocytes/100 WBC (Bld) 26.7 % Normal 20.0-40.0 [facility] Comment on above: Performed By: #### 5 7021-8 #### [place] [address] [facility]. [place] [address] Medical Sonographer - Demetra CORTEZ [id number] MCH (RBC) [Entitic mass] 28.4 pg Normal 27.0-31.0 [facility] Comment on above: Performed By: #### 5 7021-8 #### [address] [place] [address] Medical Sonographer - Demetra LYLESIA [id number] MCHC (RBC) [Mass/Vol] 34.6 g/dL Normal 32.0-36.0 [facility] Comment on above: Performed By: #### 5 7021-8 #### [address] [place] [address] Medical Sonographer - Demetra LYLESIA [id number] MCV (RBC) [Entitic vol] 81.9 fL Normal 80.0-100.0 [facility] Comment on above: Performed By: #### 5 7021-8 #### [address] [place] [address] Medical Sonographer - Demetra LYLESIA [id number] Monocytes (Bld) [#/Vol] 0.58 10*3/uL Normal 0.10-0.60 [facility] Comment on above: Performed By: #### 5 7021-8 #### [place] [address] [place] [address] Medical Sonographer - Demetra LYLESIA [id number] Monocytes/100 WBC (Bld) 7.2 % Normal <=8.0 [facility] Comment on above: Performed By: #### 5 7021-8 #### [address] [place] [address] Medical Sonographer - Demetra LYLESIA [id number] Neutrophils (Bld) [#/Vol] 5.14 10*3/uL Normal 1.40-6.50 [facility] Comment on above: Performed By: #### 5 7021-8 #### [facility] [address] [place] [address] Medical Sonographer - Demetra LYLESIA [id number] Neutrophils/100 WBC (Bld) 64.2 % Normal 50.0-70.0 [facility] Comment on above: Performed By: #### 5 7021-8 #### [place] [address] [place] [address] Medical Sonographer - Demetra LYLESIA [id number] Nucleated RBC (Bld) [#/Vol] 0.00 10*3/uL Normal <=0.10 [facility] Comment on above: Performed By: #### 5 7021-8 #### [place] [address] [place] [address] Medical Sonographer - Demetra LYLESIA [id number] Platelet mean volume (Bld) [Entitic vol] 9.9 fL Normal 9.0-13.0 [facility] Comment on above: Performed By: #### 5 7021-8 #### [place] [address] [place] [address] Medical Sonographer - Demetra LYLESIA [id number] Platelets (Bld) [#/Vol] 304 10*3/uL Normal 130-400 [facility] Comment on above: Performed By: #### 5 7021-8 #### [address] [place] [address] Medical Sonographer - Demetra LYLESIA [id number] RBC (Bld) [#/Vol] 5.64 10*6/uL Normal 4.00-6.30 [facility] Comment on above: Performed By: #### 5 7021-8 #### [address] [place] [address] Medical Sonographer - Demetra LYLESIA [id number] WBC (Bld) [#/Vol] 8.01 10*3/uL Normal 4.80-10.80 [facility] Comment on above: Performed By: #### 5 7021-8 #### [facility] [address] [place] [address] Medical Sonographer - Demetra CORTEZ [id number] Comprehensive metabolic 2000 panelon 08-15-2023 Albumin [Mass/Vol] 4.6 g/dL Normal 3.4-5.0 [facility] Comment on above: Performed By: #### 1 1579-0 #### [facility] [address] [place] [address] Medical Sonographer - Demetra CORTEZ [id number] #### 63647-0 #### [facility] [address] [place] [address] Medical Sonographer - Demetra CORTEZ [id number] Performed for [facility] [address] [place] [address] ALP [Catalytic activity/Vol] 144 U/L High 50-136 [facility] Comment on above: Performed By: #### 1 1579-0 #### [facility] [address] [place] [address] Medical Sonographer - Demetra CORTEZ [id number] #### 68489-7 #### [facility] [address] [place] [address] Medical Sonographer - Demetra CORTEZ [id number] Performed for [facility] [address] [place] [address] ALT [Catalytic activity/Vol] 48 U/L Normal 16-63 [facility] Comment on above: Performed By: #### 1 1579-0 #### [facility] [address] [place] [address] Medical Sonographer - Demetra CORTEZ [id number] #### 56334-6 #### [facility] [address] [place] [address] Medical Sonographer - Demetra CORTEZ [id number] Performed for [facility] [address] [place] [address] Anion gap [Moles/Vol] 8.0 mmol/L Normal <=15.0 [facility] Comment on above: Performed By: #### 1 1579-0 #### [facility] [address] [place] [address] Medical Sonographer - Demetra CORTEZ [id number] #### 24912-8 #### [facility] [address] [place] [address] Medical Sonographer - Demetra CORTEZ [id number] Performed for [facility] [address] [place] [address] AST [Catalytic activity/Vol] 25 U/L Normal 15-37 [facility] Comment on above: Performed By: #### 1 1579-0 #### [facility] [address] [place] [address] Medical Sonographer - Demetra CORTEZ [id number] #### 65382-5 #### [facility] [address] [place] [address] Medical Sonographer - Demetra CORTEZ [id number] Performed for [facility] [address] [place] [address] Bilirubin [Mass/Vol] 0.7 mg/dL Normal 0.2-1.0 [facility] Comment on above: Performed By: #### 1 1579-0 #### [facility] [address] [place] [address] Medical Sonographer - Demetra CORTEZ [id number] #### 55926-2 #### [facility] [address] [place] [address] Medical Sonographer - Demetra CORTZE [id number] Performed for [facility] [address] [place] [address] Calcium [Mass/Vol] 9.7 mg/dL Normal 8.5-10.1 [facility] Comment on above: Performed By: #### 1 1579-0 #### [facility] [address] [place] [address] Medical Sonographer - Demetra CORTEZ [id number] #### 24931-5 #### [facility] [address] [place] [address] Medical Sonographer - Demetra CORTEZ [id number] Performed for [facility] [address] [place], [place] [address] Chloride [Moles/Vol] 104 mmol/L Normal 98-107 [facility] Comment on above: Performed By: #### 1 1579-0 #### [facility] [address] [place], [place] [address] Medical Sonographer - Demetra CORTEZ [id number] #### 88329-7 #### [facility] [address] [place], [place] [address] Medical Sonographer - Demetra CORTEZ [id number] Performed for [facility] [address] [place], [place] [address] CO2 [Moles/Vol] 28 mmol/L Normal 21-32 [facility] Comment on above: Performed By: #### 1 1579-0 #### [facility] [address] [place] [address] Medical Sonographer - Demetra CORTEZ [id number] #### 36690-0 #### [facility] [address] [place], [place] [address] Medical Sonographer - Demetra CORTEZ [id number] Performed for [facility] [address] [place], [place] [address] Creatinine [Mass/Vol] 0.79 mg/dL Normal 0.67-1.17 [facility] Comment on above: Performed By: #### 1 1579-0 #### [facility] [address] [place], [place] [address] Medical Sonographer - Demetra CORTEZ [id number] #### 87753-2 #### [facility] [address] [place] [address] Medical Sonographer - Demetra CORTEZ [id number] Performed for [facility] [address] [place], [place] [address] GFR/1.73 sq M.predicted MDRD (S/P/Bld) [Vol rate/Area] Normal 59-N/A [facility] Comment on above: Performed By: #### 1 1579-0 #### [facility] [address] [place] [address] Medical Sonographer - Demetra CORTEZ [id number] #### 71645-3 #### [facility] [address] [place] [address] Medical Sonographer - Demetra CORTEZ [id number] Performed for [facility] [address] [place] [address] Glucose [Mass/Vol] 104 mg/dL Normal 74-106 [facility] Comment on above: Performed By: #### 1 1579-0 #### [facility] [address] [place] [address] Medical Sonographer - Demetra CORTEZ [id number] #### 03990-4 #### [facility] [address] [place] [address] Medical Sonographer - Demetra CORTEZ [id number] Performed for [facility] [address] [place] [address] HGFR GLOMERULAR FILTRATIO N RATE INTERPRETATION~The eGFR is calculated using the MDRD equation.~This equation has been validated in patients with chronic kidney disease;~however, it underestimates the GFR in healthy patients with GFR's over 60 mL/min.~The equation is not valid in children under the age of 18.~NOTE: Criteria for Chronic Kidney Disease:~ ~1. Kidney damage for at least three months, as defined~by structural or functional abnormalities of the kidney,~with or without decreased glomerular filtration rate, manifested by either:~* Pathological abnormalities or~* Markers of Kidney damage, including abnormalities in~the composition of the blood or urine or abnormalities in imaging tests.~ ~2. GFR <60 mL/min/1.73 m squared for at least three months, with or without kidney damage.~ Normal [facility] Comment on above: Performed By: #### 1 1579-0 #### [facility] [address] [place] [address] Medical Sonographer - Demetra CORTEZ [id number] #### 81855-4 #### [facility] [address] [place] [address] Medical Sonographer - Demetra CORTEZ [id number] Performed for [facility] [address] [place], [place] [address] Potassium [Moles/Vol] 3.8 mmol/L Normal 3.5-5.1 [facility] Comment on above: Performed By: #### 1 1579-0 #### [facility] [address] [place] [address] Medical Sonographer - Demetra CORTEZ [id number] #### 52808-0 #### [facility] [address] [place] [address] Medical Sonographer - Demetra CORTEZ [id number] Performed for [facility] [address] [place] [address] Protein [Mass/Vol] 7.7 g/dL Normal 6.4-8.2 [facility] Comment on above: Performed By: #### 1 1579-0 #### [facility] [address] [place] [address] Medical Sonographer - Demetra CORTEZ [id number] #### 34251-4 #### [facility] [address] [place] [address] Medical Sonographer - Demetra CORTEZ [id number] Performed for [facility] [address] [place], [place] [address] Sodium [Moles/Vol] 140 mmol/L Normal 136-145 [facility] Comment on above: Performed By: #### 1 1579-0 #### [facility] [address] [place] [address] Medical Sonographer - Demetra CORTEZ [id number] #### 94672-8 #### [facility] [address] [place] [address] Medical Sonographer - Demetra CORTEZ [id number] Performed for [facility] [address] [place] [address] Urea nitrogen [Mass/Vol] 10 mg/dL Normal 9-20 [facility] Comment on above: Performed By: #### 1 1579-0 #### [facility] [address] [place] [address] Medical Sonographer - Demetra CORTEZ [id number] #### 97228-7 #### [facility] [address] [place] [address] Medical Sonographer - Demetra CORTEZ [id number] Performed for [facility] [address] [place] [address] LITHIUMon 08-15-2023 [place] [Moles/Vol] 0.5 mmol/L Low 0.6-1.2 [facility] Comment on above: Performed By: #### 1 1579-0 #### [facility] [address] [place] [address] Medical Sonographer - Demetra CORTEZ [id number] #### 73367-8 #### [facility] [address] [place] [address] Medical Sonographer - Demetra CORTEZ [id number] Performed for [facility] [address] [place] [address] TSH DL <= 0.05 mIU/L Qnon TSH Qn 1.680 uIU/mL Normal 0.358-3.740 [facility] Comment on above: Performed By: #### 1 1579-0 #### [facility] [address] [place] [address] Medical Sonographer - Demetra CORTEZ [id number] #### 75200-7 #### [facility] [address] [place] [address] Medical Sonographer - Demetra CORTEZ [id number] Performed for [facility] [address] [place] [address] Urinalysis panel Auto (U)on 08-15-2023 Bacteria LM Ql (Urine sed) Normal TRACE [facility] Comment on above: Performed By: #### 5 0564-4 #### [facility] [address] [place] [address] Medical Sonographer - Demetra CORTEZ [id number] Performed for [facility] [address] [place] [address] Bilirubin (U) [Mass/Vol] Negative Normal NEGATIVE [facility] Comment on above: Performed By: #### 5 0564-4 #### [facility] [address] [place] [address] Medical Sonographer - Demetra CORTEZ [id number] Performed for [facility] [address] [place], [place] [address] Clarity (U) CLEAR Normal CLEAR [facility] Comment on above: Performed By: #### 5 0564-4 #### [facility] [address] [place] [address] Medical Sonographer - Demetra LYLESIA [id number] Performed for [facility] [address] [place] [address] Color (U) YELLOW Normal YELLOW [facility] Comment on above: Performed By: #### 5 0564-4 #### [facility] [address] [place] [address] Medical Sonographer - Demetra CORTEZ [id number] Performed for [facility] [address] [place] [address] Glucose Test strip (U) [Mass/Vol] Negative Normal NEGATIVE [facility] Comment on above: Performed By: #### 5 0564-4 #### [facility] [address] [place] [address] Medical Sonographer - Demetra CORTEZ [id number] Performed for [facility] [address] [place] [address] HMICRO MICROSCOPIC Normal [facility] Comment on above: Performed By: #### 5 0564-4 #### [facility] [address] [place] [address] Medical Sonographer - Demetra CORTEZ [id number] Performed for [facility] [address] [place] [address] Hyaline casts (Urine sed) [#/Area] Normal 0-8 [facility] Comment on above: Performed By: #### 5 0564-4 #### [facility] [address] [place], [place] [address] Medical Sonographer - Demetra LYLESIA [id number] Performed for [facility] [address] [place], [place] [address] Ketones (U) [Mass/Vol] TRACE Abnormal NEGATIVE [facility] Comment on above: Performed By: #### 5 0564-4 #### [facility] [address] [place], [place] [address] Medical Sonographer - Demetra CORTEZ [id number] Performed for [facility] [address] [place], [place] [address] Leukocyte esterase Qn (U) Negative Normal TRACE [facility] Comment on above: Performed By: #### 5 0564-4 #### [facility] [address] [place], [place] [address] Medical Sonographer - Demetra CORTEZ [id number] Performed for [facility] [address] [place], [place] [address] Nitrite Ql (U) Negative Normal NEGATIVE [facility] Comment on above: Performed By: #### 5 0564-4 #### [facility] [address] [place], [place] [address] Medical Sonographer - Demetra CORTEZ [id number] Performed for [facility] [address] [place], [place] [address] pH (U) 6.5 [pH] Normal 5.5-7.5 [facility] Comment on above: Performed By: #### 5 0564-4 #### [facility] [address] [place], [place] [address] Medical Sonographer - Demetra CORTEZ [id number] Performed for [facility] [address] [place], [place] [address] Protein (U) [Mass/Vol] Negative Normal NEGATIVE [facility] Comment on above: Performed By: #### 5 0564-4 #### [facility] [address] [place], [place] [address] Medical Sonographer - Demetra CORTEZ [id number] Performed for [facility] [address] [place], [place] [address] RBC (U) [#/Vol] Negative Normal NEGATIVE [facility] Comment on above: Performed By: #### 5 0564-4 #### [facility] [address] [place] [address] Medical Sonographer - Demetra CORTEZ [id number] Performed for [facility] [address] [place], [place] [address] RBC LM.HPF (Urine sed) [#/Area] Normal 0-4 [facility] Comment on above: Performed By: #### 5 0564-4 #### [facility] [address] [place] [address] Medical Sonographer - Demetra CORTEZ [id number] Performed for [facility] [address] [place] [address] Specific gravity (U) [Rel density] 1.023 Normal 1.010-1.035 [facility] Comment on above: Performed By: #### 5 0564-4 #### [facility] [address] [place] [address] Medical Sonographer - Demetra CORTEZ [id number] Performed for [facility] [address] [place], [place] [address] SQUAMOUS EPITHELIALS Normal 0-5 [facility] Comment on above: Performed By: #### 5 0564-4 #### [facility] [address] [place] [address] Medical Sonographer - Demetra CORTEZ [id number] Performed for [facility] [address] [place], [place] [address] Urobilinogen Qn (U) 0.2 {Trevon'U}/dL Normal <=1.0 [facility] Comment on above: Performed By: #### 5 0564-4 #### [facility] [address] [place] [address] Medical Sonographer - Demetra CORTEZ [id number] Performed for [facility] [address] [place], [place] [address] WBC LM.HPF (Urine sed) [#/Area] Normal 0-5 [facility] Comment on above: Performed By: #### 5 0564-4 #### [facility] [address] [place] [address] Medical Sonographer - Demetra CORTEZ [id number] Performed for [place] [address] [place] [address] LUMBAR WITH OBLIQUESon 05-30 LUMBAR WITH OBLIQUES EXAM: LUMBAR WITH OBLIQUES HISTORY: Low back pain COMPARISON: None. TECHNIQUE: 5 views FINDINGS: Satisfactory alignment. Maintained vertebral body heights and disc spaces. No acute fracture or subluxation. Unremarkable soft tissues. IMPRESSION: Unremarkable exam. Normal [facility] CBC W Auto Differential pane l (Bld)on 03-22-2023 Basophils (Bld) [#/Vol] 0.05 10*3/uL Normal <=0.70 [facility] Comment on above: Performed By: #### 5 7021-8 #### [address] [place] [address] Medical Sonographer - Demetra CORTEZ [id number] Basophils/100 WBC (Bld) 0.7 % Normal <=2.0 [facility] Comment on above: Performed By: #### 5 7021-8 #### [address] [place] [address] Medical Sonographer - Demetra LYLESIA [id number] Eosinophils (Bld) [#/Vol] 0.14 10*3/uL Normal <=0.70 [facility] Comment on above: Performed By: #### 5 7021-8 #### [address] [place] [address] Medical Sonographer - Demetra LYLESIA [id number] Eosinophils/100 WBC (Bld) 2.0 % Normal <=10.0 [facility] Comment on above: Performed By: #### 5 7021-8 #### [address] [place] [address] Medical Sonographer - Demetra CORTEZ [id number] Erythrocyte distribution width (RBC) [Entitic vol] 39.7 fL Normal 35.1-43.9 [facility] Comment on above: Performed By: #### 5 7021-8 #### [address] [place] [address] Medical Sonographer - Demetra LYLESIA [id number] Hematocrit (Bld) [Volume fraction] 44.2 % Normal 40.0-54.0 [facility] Comment on above: Performed By: #### 5 7021-8 #### [address] [place] [address] Medical Sonographer - Demetra LYLESIA [id number] Hemoglobin (Bld) [Mass/Vol] 14.7 g/dL Normal 14.0-18.0 [facility] Comment on above: Performed By: #### 5 7021-8 #### [address] [place] [address] Medical Sonographer - Demetra LYLESIA [id number] Immature granulocytes (Bld) [#/Vol] 0.01 10*3/uL Normal <=0.10 [facility] Comment on above: Performed By: #### 5 7021-8 #### [address] [place] [address] Medical Sonographer - Demetra LYLESIA [id number] Immature granulocytes/100 WBC (Bld) 0.10 % Normal <=1.50 [facility] Comment on above: Performed By: #### 5 7021-8 #### [address] [place] [address] Medical Sonographer - Demetra LYLESIA [id number] Lymphocytes (Bld) [#/Vol] 2.27 10*3/uL Normal 1.20-3.40 [facility] Comment on above: Performed By: #### 5 7021-8 #### [address] [facility] [place] [address] Medical Sonographer - Demetra LYLESIA [id number] Lymphocytes/100 WBC (Bld) 32.5 % Normal 20.0-40.0 [facility] Comment on above: Performed By: #### 5 7021-8 #### [address] [place] [address] Medical Sonographer - Demetra Daniel CLIA [id number] MCH (RBC) [Entitic mass] 27.9 pg Normal 27.0-31.0 [facility] Comment on above: Performed By: #### 5 7021-8 #### [address] [place] [address] Medical Sonographer - Demetra LYLESIA [id number] MCHC (RBC) [Mass/Vol] 33.3 g/dL Normal 32.0-36.0 [facility] Comment on above: Performed By: #### 5 7021-8 #### [address] [place] [address] Medical Sonographer - Demetra LYLESIA [id number] MCV (RBC) [Entitic vol] 84.0 fL Normal 80.0-100.0 [facility] Comment on above: Performed By: #### 5 7021-8 #### [place] [address] Medical Sonographer - Demetra LYLESIA [id number] Monocytes (Bld) [#/Vol] 0.69 10*3/uL High 0.10-0.60 [facility] Comment on above: Performed By: #### 5 7021-8 #### [address] [place] [address] Medical Sonographer - Demetra LYLESIA [id number] Monocytes/100 WBC (Bld) 9.9 % High <=8.0 [facility] Comment on above: Performed By: #### 5 7021-8 #### [address] [place] [address] Medical Sonographer - Demetra LYLESIA [id number] Neutrophils (Bld) [#/Vol] 3.83 10*3/uL Normal 1.40-6.50 [facility] Comment on above: Performed By: #### 5 7021-8 #### [address] [place] [address] Medical Sonographer - Demetra Daniel CLIA [id number] Neutrophils/100 WBC (Bld) 54.8 % Normal 50.0-70.0 [facility] Comment on above: Performed By: #### 5 7021-8 #### [facility] [address] [place] [address] Medical Sonographer - Demetra CORTEZ [id number] Nucleated RBC (Bld) [#/Vol] 0.00 10*3/uL Normal <=0.10 [facility] Comment on above: Performed By: #### 5 7021-8 #### [address] [place] [address] Medical Sonographer - Demetra CORTEZ [id number] Platelet mean volume (Bld) [Entitic vol] 10.0 fL Normal 9.0-13.0 [facility] Comment on above: Performed By: #### 5 7021-8 #### [address] [place] [address] Medical Sonographer - Demetra CORTEZ [id number] Platelets (Bld) [#/Vol] 317 10*3/uL Normal 130-400 [facility] Comment on above: Performed By: #### 5 7021-8 #### [address] [place] [address] Medical Sonographer - Demetra CORTEZ [id number] RBC (Bld) [#/Vol] 5.26 10*6/uL Normal 4.00-6.30 [facility] Comment on above: Performed By: #### 5 7021-8 #### [address] [place] [address] Medical Sonographer - Demetra CORTEZ [id number] WBC (Bld) [#/Vol] 6.99 10*3/uL Normal 4.80-10.80 [facility] Comment on above: Performed By: #### 5 7021-8 #### [address] [facility] [place] [address] Medical Sonographer - Demetra CORTEZ [id number] Comprehensive metabolic 2000 panelon 03-22-2023 Albumin [Mass/Vol] 4.2 g/dL Normal 3.4-5.0 [facility] Comment on above: Performed By: #### 2 4323-8 #### [facility] [address] [place] [address] Medical Sonographer - Demetra LYLESIA [id number] Performed for [facility] [address] [place] [address] #### 59233-0 #### [facility] [address] [place] [address] Medical Sonographer - Demetra LYLESIA [id number] ALP [Catalytic activity/Vol] 127 U/L Normal 50-136 [facility] Comment on above: Performed By: #### 2 4323-8 #### [facility] [address] [place] [address] Medical Sonographer - Demetra LYLESIA [id number] Performed for [facility] [address] [place] [address] #### 18539-6 #### [facility] [address] [place] [address] Medical Sonographer - Demetra LYLESIA [id number] ALT [Catalytic activity/Vol] 114 U/L High 16-63 [facility] Comment on above: Performed By: #### 2 4323-8 #### [facility] [address] [place] [address] Medical Sonographer - Demetra LYLESIA [id number] Performed for [facility] [address] [place] [address] #### 57193-5 #### [facility] [address] [place] [address] Medical Sonographer - Demetra LYLESIA [id number] Anion gap [Moles/Vol] 6.1 mmol/L Normal <=15.0 [facility] Comment on above: Performed By: #### 2 4323-8 #### [facility] [address] [place] [address] Medical Sonographer - Demetra LYLESIA [id number] Performed for [facility] [address] [place] [address] #### 70988-2 #### [facility] [address] [place] [address] Medical Sonographer - Demetra LYLESIA [id number] AST [Catalytic activity/Vol] 51 U/L High 15-37 [facility] Comment on above: Performed By: #### 2 4323-8 #### [facility] [address] [place] [place] [address] Medical Sonographer - Demetra LYLESIA [id number] Performed for [facility] [address] [place] [address] #### 06439-5 #### [facility] [address] [place] [address] Medical Sonographer - Demetra LYLESIA [id number] Bilirubin [Mass/Vol] 0.5 mg/dL Normal 0.2-1.0 [facility] Comment on above: Performed By: #### 2 4323-8 #### [facility] [address] [place] [address] Medical Sonographer - Demetra LYLESIA [id number] Performed for [facility] [address] [place] [address] #### 00909-3 #### [facility] [address] [place] [address] Medical Sonographer - Demetra CORTEZ [id number] Calcium [Mass/Vol] 8.9 mg/dL Normal 8.5-10.1 [facility] Comment on above: Performed By: #### 2 4323-8 #### [facility] [address] [place] [address] Medical Sonographer - Demetra Daniel CLIA [id number] Performed for [facility] [address] [place] [address] #### 45497-3 #### [facility] [address] [place] [address] Medical Sonographer - Demetra LYLESIA [id number] Chloride [Moles/Vol] 107 mmol/L Normal 98-107 [facility] Comment on above: Performed By: #### 2 4323-8 #### [facility] [address] [place] [address] Medical Sonographer - Demetra CORTEZ [id number] Performed for [facility] [address] [place] [address] #### 69255-7 #### [facility] [address] [place] [address] Medical Sonographer - Demetra CORTEZ [id number] CO2 [Moles/Vol] 27 mmol/L Normal 21-32 [facility] Comment on above: Performed By: #### 2 4323-8 #### [facility] [address] [place] [address] Medical Sonographer - Demetra CORTEZ [id number] Performed for [facility] [address] [place] [address] #### 83132-5 #### [facility] [address] [place] [address] Medical Sonographer - Demetra CORTEZ [id number] Creatinine [Mass/Vol] 0.68 mg/dL Normal 0.67-1.17 [facility] Comment on above: Performed By: #### 2 4323-8 #### [facility] [address] [place] [address] Medical Sonographer - Demetra CORTEZ [id number] Performed for [facility] [address] [place] [address] #### 80909-7 #### [facility] [address] [place] [address] Medical Sonographer - Demetra CORTEZ [id number] GFR/1.73 sq M.predicted MDRD (S/P/Bld) [Vol rate/Area] Normal 59-N/A [facility] Comment on above: Performed By: #### 2 4323-8 #### [facility] [address] [place] [address] Medical Sonographer - Demetra CORTEZ [id number] Performed for [facility] [address] [place] [address] #### 76544-4 #### [facility] [address] [place] [address] Medical Sonographer - Demetra Danielhood CORTEZ [id number] Glucose [Mass/Vol] 101 mg/dL Normal 74-106 [facility] Comment on above: Performed By: #### 2 4323-8 #### [facility] [address] [place] [address] [facility] [id number] Performed for [facility] [address] [place] [address] #### 26305-9 #### [facility] [address] [place] [address] [facility] [id number] HGFR GLOMERULAR FILTRATIO N RATE INTERPRETATION~The eGFR is calculated using the MDRD equation.~This equation has been validated in patients with chronic kidney disease;~however, it underestimates the GFR in healthy patients with GFR's over 60 mL/min.~The equation is not valid in children under the age of 18.~NOTE: Criteria for Chronic Kidney Disease:~ ~1. Kidney damage for at least three months, as defined~by structural or functional abnormalities of the kidney,~with or without decreased glomerular filtration rate, manifested by either:~* Pathological abnormalities or~* Markers of Kidney damage, including abnormalities in~the composition of the blood or urine or abnormalities in imaging tests.~ ~2. GFR <60 mL/min/1.73 m squared for at least three months, with or without kidney damage.~ Normal [facility] Comment on above: Performed By: #### 2 4323-8 #### [facility] [address] [place] [address] Medical Sonographer - [facility] [id number] Performed for [facility] [address] [place] [address] #### 11382-3 #### [facility] [address] [place] [address] Medical [facility] [id number] Potassium [Moles/Vol] 3.9 mmol/L Normal 3.5-5.1 [facility] Comment on above: Performed By: #### 2 4323-8 #### [facility] [address] [place] [address] Medical Sonographer - Demetra CORTEZ [id number] Performed for [facility] [address] [place] [address] #### 88989-2 #### [facility] [address] [place] [address] Medical Sonographer - Demetra CORTEZ [id number] Protein [Mass/Vol] 7.1 g/dL Normal 6.4-8.2 [facility] Comment on above: Performed By: #### 2 4323-8 #### [facility] [address] [place] [address] Medical Sonographer - Demetra CORTEZ [id number] Performed for [facility] [address] [place] [address] #### 45969-8 #### [facility] [address] [place] [address] Medical Sonographer - Demetra CORTEZ [id number] Sodium [Moles/Vol] 140 mmol/L Normal 136-145 [facility] Comment on above: Performed By: #### 2 4323-8 #### [facility] [address] [place] [address] Medical Sonographer - Demetra CORTEZ [id number] Performed for [facility] [address] [place] [address] #### 63099-4 #### [facility] [address] [place] [address] Medical Sonographer - Demetra CORTEZ [id number] Urea nitrogen [Mass/Vol] 10 mg/dL Normal 9-20 [facility] Comment on above: Performed By: #### 2 4323-8 #### [facility] [address] [place] [address] Medical Sonographer - Demetra CORTEZ [id number] Performed for [facility] [address] [place] [address] #### 18477-7 #### [facility] [address] [place] [address] Medical Sonographer - Demetra CORTEZ [id number] LITHIUMon 03-22-2023 [place] [Moles/Vol] 0.4 mmol/L Low 0.6-1.2 [facility] Comment on above: Performed By: #### 1 4334-7 #### [facility] [address] [place] [address] Medical Sonographer - [facility] [id number] TSH DL <= 0.05 mIU/L Qnon TSH Qn 3.200 uIU/mL Normal 0.358-3.740 [facility] Comment on above: Performed By: #### 2 4323-8 #### [address] [place] [address] Medical Sonographer - [facility] [id number] Performed for [address] [place] [address] #### 12030-1 #### [address] [place] [address] Medical Sonographer - [facility] [id number] Urinalysis panel Auto (U)on 03-22-2023 Bacteria LM.HPF (Urine sed) [#/Area] Negative Normal TRACE [facility] Comment on above: Performed By: #### 5 0564-4 #### [address] [place] [address] Medical Sonographer - [facility] [id number] Bilirubin Ql (U) Negative Normal NEGATIVE [facility] Comment on above: Performed By: #### 5 0564-4 #### [place] [address] [place] [address] Medical Sonographer - [facility] [id number] Clarity (U) CLEAR Normal CLEAR [facility] Comment on above: Performed By: #### 5 0564-4 #### [facility] [address] [place] [address] Medical Sonographer - [facility] [id number] Color (U) DK YELLOW Abnormal YELLOW [facility] Comment on above: Performed By: #### 5 0564-4 #### [facility] [address] [place] [address] Medical Sonographer - Demetra CORTEZ [id number] Glucose Ql (U) Negative Normal NEGATIVE [facility] Comment on above: Performed By: #### 5 0564-4 #### [facility] [address] [place] [address] Medical Sonographer - Demetra CORTEZ [id number] Hemoglobin Ql (U) Negative Normal NEGATIVE [facility] Comment on above: Performed By: #### 5 0564-4 #### [facility] [address] [place] [address] Medical Sonographer - Demetra CORTEZ [id number] HMICRO MICROSCOPIC Normal [facility] Comment on above: Performed By: #### 5 0564-4 #### [facility] [address] [place] [address] Medical Sonographer - Demetra CORTEZ [id number] Hyaline casts (Urine sed) [#/Area] 0-8 Normal 0-8 [facility] Comment on above: Performed By: #### 5 0564-4 #### [facility] [address] [place] [address] Medical Sonographer - Demetra CORTEZ [id number] KETONE 1+ Abnormal NEGATIVE [facility] Comment on above: Performed By: #### 5 0564-4 #### [facility] [address] [place] [address] Medical Sonographer - Demetra CORTEZ [id number] Leukocyte esterase Test strip Ql (U) Negative Normal TRACE [facility] Comment on above: Performed By: #### 5 0564-4 #### [facility] [address] [place] [address] Medical Sonographer - Demetra CORTEZ [id number] Nitrite Ql (U) Negative Normal NEGATIVE [facility] Comment on above: Performed By: #### 5 0564-4 #### [facility] [address] [place] [address] Medical Sonographer - Demetra CORTEZ [id number] pH (U) 6.0 [pH] Normal 5.5-7.5 [facility] Comment on above: Performed By: #### 5 0564-4 #### [facility] [address] [facility] [place] [address] Medical Sonographer - Demetra CORTEZ [id number] Protein Ql (U) TRACE Abnormal NEGATIVE [facility] Comment on above: Performed By: #### 5 0564-4 #### [facility] [address] [facility] [place] [address] Medical Sonographer - Demetra CORTEZ [id number] RBC LM.HPF (Urine sed) [#/Area] 0-4 Normal 0-4 [facility] Comment on above: Performed By: #### 5 0564-4 #### [place] [address] Medical Sonographer - Demetra CORTEZ [id number] Specific gravity (U) [Rel density] 1.034 Normal 1.010-1.035 [facility] Comment on above: Performed By: #### 5 0564-4 #### [address] Director - Demetra CORTEZ [id number] SQUAMOUS EPITHELIALS 0-5 Normal 0-5 [facility] Comment on above: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 homicide this AM. Pt denies hallucinations at this time and is not attending to internal stimuli upon assessment. Pt denies NSSI thoughts this AM. Upon assessment, pt eye contact is good. Affect is congruent. Speech is normal rate, tone and rhythm and coherent speech. Pt agrees to maintaining safety and in agreement to notify staff of any concerns throughout the shift. Q 15 min safety checks maintained and staff will continue to monitor pt. [facility] 94on 06-25-2022 94 Group Topic: Activit y Therapy Group Date: 06/25/2022 Start Time: 1430 End Time: 1530 Facilitators: DARI Roca Department: [facility] Number of Participants: 11 Group Focus: art therapy and check in Treatment Modality: Interpersonal Therapy Interventions utilized were other Art Exploration Values Activity Purpose: enhance coping skills and express feelings Name: Manny Mcnally Date of : 2005 MR: [id number] Level of Participation: moderate Quality of Participation: attentive and cooperative Interactions with others: asked thoughtful questions Mood/Affect: appropriate Triggers (if applicable): n/a Cognition: coherent/clear Progress: Moderate Response: Pt shared personal values Plan: Pt will be encouraged to continue to participate in recreational therapy groups and activities. Patients Problems: Patient Active Problem List Diagnosis Suicidal behavior with attempted self-injury (CMS/HCC) ADHD (attention deficit hyperactivity disorder) Oppositional defiant disorder Autism spectrum disorder MARILEE (generalized anxiety disorder) Moderate episode of recurrent major depressive disorder (CMS/HCC) [facility] 94 Group Topic: Activit y Therapy Group Date: 06/25/2022 Start Time: 1315 End Time: 1415 Facilitators: DARI Roca Department: [facility] Number of Participants: 11 Group Focus: feeling awareness/expression - Coping Skill Can Treatment Modality: Interpersonal Therapy Interventions utilized were active listening, exploration, and leisure development Purpose: enhance coping skills, explore maladaptive thinking, express feelings, and reinforce self-care Name: Manny Mcnally Date of : 2005 MR: [id number] Level of Participation: moderate Quality of Participation: cooperative and disruptive Interactions with others: intrusive Mood/Affect: appropriate Triggers (if applicable): n/a Cognition: coherent/clear Progress: Minimal Response: Patient needed redirection to maintain appropriate voice level when talking and was encouraged to stay on task Plan: Pt will be encouraged to continue to participate in recreational therapy groups and activities. Patients Problems: Patient Active Problem List Diagnosis Suicidal behavior with attempted self-injury (CMS/HCC) ADHD (attention deficit hyperactivity disorder) Oppositional defiant disorder Autism spectrum disorder MARILEE (generalized anxiety disorder) Moderate episode of recurrent major depressive disorder (CMS/HCC) [facility] NURSNOTEon 06-25-2022 NURSNOTE Pt is social with pe ers. He was once again loud. PT got into a shoving match with another patient. It was broken up by one of our therapists immediately. Also, pt attempted to recruit other patients to over throw staff on the unit. Pt is participating in groups. Pt is able to verbalize reason for admission. Pt is denying depression and anxiety. Pt states they feel an overall improvement in their mood. Pt denies SI, HI, and hallucinations at this time. Pt is eating and drinking adequately. Pt able to tolerate quiet time without issues. Pt denies any issues with sleeping. Pt denies any other concerns at this time. Pt remains safe from harm. Pt expresses a strong desire to go home. [facility] NURSNOTE Pt showered and ate snack. Pt did attend group and had to be redirect multiple times for distracting behavior. Barn Manager asked pt why he felt that his peers and to take over the staff? Pt became agitated and declined to answer any further assessment questions. Pt requested to go to bed early without incident. Q15 min safety checks maintained. [facility] NURSNOTE Pt rested with eyes closed and easy RR for 8 hour of sleep; q15 min safety checks maintained [facility] 30on 06-24-2022 30 The patient is Moderately Unstable - Medium risk of patient condition declining or worsening The patient's goals for the shift include PT to attend and maintain patient's safety The clinical goals for the shift include Maintain patient's safety Over the shift, the patient did not make progress toward the following goals. Barriers to progression include impulsive inappropriate comments to peers/staff. Recommendations to address these barriers include consistent redirection and education. Problem: Acute Manic/Hypomanic Symptoms Goal: LTG-Return to less restricted environment Outcome: Progressing Goal: LTG-Take medications as prescribed Outcome: Progressing Goal: LTG-Demonstrate improved judgement Outcome: Progressing Goal: LTG-Demonstrates an improvement in impulsive behaviors Outcome: Progressing Goal: STG-Will report an increase in ability to concentrate Outcome: Progressing Problem: Aggression Goal: LTG-Control aggressive behaviors with assistance Outcome: Progressing Goal: LTG-Demostrate a decrease in aggressive behaviors Outcome: Progressing Goal: LTG-Decrease intensity of aggressive outbursts Outcome: Progressing Goal: STG-Cooperates with evaluations from physicians/RNs Outcome: Progressing Problem: Agitation Goal: LTG-Decrease in targeted symptoms Outcome: Progressing Goal: LTG-Allows ADL care Outcome: Progressing Goal: LTG-Take medications as prescribed Outcome: Progressing Goal: STG-Requires 1 prompts to take medication Outcome: Progressing Goal: STG-Demonstrates the ability to concentrate 7 times a week Outcome: Progressing Problem: Anxiety Goal: LTG-Return to less restricted environment Outcome: Progressing Goal: LTG-Overall frequency and intensity of anxiety symptoms decrease Outcome: Progressing Goal: LTG-Decrease worry of fearful thoughts and/or behaviors Outcome: Progressing Goal: STG-Can demonstrate or identify two relaxation techniques Outcome: Progressing Problem: Depression Goal: LTG-Alleviate depressed mood Outcome: Progressing Goal: LTG-Take medications as prescribed Outcome: Progressing Goal: LTG-Engage in self care as tolerated Outcome: Progressing Goal: LTG-Demonstrate elevation in mood Outcome: Progressing Goal: STG-Will perform 100% of self-care by 06/24/2022 Outcome: Progressing Goal: STG-Can identify 3 positive things about self Outcome: Progressing Problem: Self Harm Goal: LTG-Identify and manage underlying issues that trigger self harm Outcome: Progressing Goal: LTG-Learn how to regulate and cope with unhealthy emotions Outcome: Progressing Goal: STG-Improve self image and self esteem Outcome: Progressing Problem: Suicial Ideation Goal: LTG-Reach optimal level of functioning Outcome: Progressing Goal: LTG-Develop suicide safety plan Outcome: Progressing Goal: LTG-Verbalize absence of plan Outcome: Progressing Goal: STG-Pt will develop suicide safety plan by 06/27/2022 Outcome: Progressing [facility] 30 The patient is Moderately Unstable - Medium risk of patient condition declining or worsening The patient's goals for the shift include none stated The clinical goals for the shift include maintain safety and free from harm. Over the shift, the patient did not make progress toward the following goals. Barriers to progression include anger and mistrust of new staff. Recommendations to address these barriers include redirect immediately when pt becomes irritated. Problem: Acute Manic/Hypomanic Symptoms Goal: STG-Will report an increase in ability to concentrate Outcome: Progressing Problem: Aggression Goal: STG-Cooperates with evaluations from physicians/RNs Outcome: Progressing Problem: Agitation Goal: LTG-Take medications as prescribed Outcome: Progressing [facility] 94on 06-24-2022 94 Group Topic: Nilson perkins Group Date: 06/24/2022 Start Time: 1844 End Time: 1944 Facilitators: Darrin Acharya Department: [facility] Number of Participants: 11 Group Focus: impulsivity and personal responsibility Treatment Modality: Behavior Modification Therapy Interventions utilized were clarification and exploration Purpose: Behavioral modification. Focus on respect and boundaries. Patient checkin as the milleu consisted of oppositional defiance, lack of boundaries and respect for self and peers. Conversation consisted on the importance of being admitted on the unit, what avenue of goals should be considered, and remaining consistent in such plans for safety for discharge. Name: Manny Mcnally Date of : 2005 MR: [id number] Level of Participation: moderate Quality of Participation: cooperative, immature, and impulsive Interactions with others: sarcastic Mood/Affect: Fluctuating in mood in the sense of being on track and appropriate to guarded and impulsive in speech. Triggers (if applicable): N/A Cognition: no insight Progress: Minimal Response: Pt stated hes ok with going through the system of [facility] and psych Plan: follow-up needed Patients Problems: Patient Active Problem List Diagnosis Suicidal behavior with attempted self-injury (CMS/HCC) ADHD (attention deficit hyperactivity disorder) Oppositional defiant disorder Autism spectrum disorder MARILEE (generalized anxiety disorder) Moderate episode of recurrent major depressive disorder ([facility]/HCC) [facility] 94 Group Topic: Activit y Therapy Group Date: 06/24/2022 Start Time: 1400 End Time: 1500 Facilitators: DARI Roca Department: [facility] Number of Participants: 9 Group Focus: music therapy Treatment Modality: Interpersonal Therapy and Leisure Development Interventions utilized were exploration, leisure development, and other music Purpose: enhance coping skills, express feelings, regain self-worth, and reinforce self-care Name: Manny Mcnally Date of : 2005 MR: [id number] Level of Participation: active Quality of Participation: attention seeking and attentive Interactions with others: gave feedback and intrusive Mood/Affect: appropriate Triggers (if applicable): N/A Cognition: coherent/clear and logical Progress: Moderate Response: Patient needed redirection multiple times to stay on task but was cooperative and engaged in activity Plan: Pt will be encouraged to continue to participate in recreational therapy groups and activities. Patients Problems: Patient Active Problem List Diagnosis Suicidal behavior with attempted self-injury (CMS/HCC) ADHD (attention deficit hyperactivity disorder) Oppositional defiant disorder Autism spectrum disorder MARILEE (generalized anxiety disorder) Moderate episode of recurrent major depressive disorder (CMS/HCC) [facility] 94 Group Topic: Goals Group Date: 06/24/2022 Start Time: 1040 End Time: 1145 Facilitators: Graciela Fernandes Department: [facility] Number of Participants: 11 Group Focus: check in, community group, family, feeling awareness/expression, nursing group, and safety plan Treatment Modality: Psychoeducation Interventions utilized were active listening, assignment, group exercise, and patient education Purpose: express feelings, improve communication skills, increase insight or knowledge, and relapse prevention strategies Name: Manny Mcnally Date of : 2005 MR: [id number] Level of Participation: moderate Quality of Participation: attention seeking, disruptive, distractible, distracting to others, hyperactive, impulsive, pushed limits, and redirectable Interactions with others: gave feedback Mood/Affect: closed / guarded, irritable, and restless Triggers (if applicable): na Cognition: coherent/clear Progress: Moderate Response: Patient was engaged in group and shared when prompted. Plan: patient will be encouraged to attend and participate in group until discharge. Patients Problems: Patient Active Problem List Diagnosis Suicidal behavior with attempted self-injury (CMS/HCC) ADHD (attention deficit hyperactivity disorder) Oppositional defiant disorder Autism spectrum disorder MARILEE (generalized anxiety disorder) Moderate episode of recurrent major depressive disorder (CMS/HCC) [facility] 94 Group Topic: Coping Skills Group Date: 06/24/2022 Start Time: 844 End Time: 914 Facilitators: Graciela Fernandes Department: [facility] Number of Participants: 10 Group Focus: check in, communication, community group, coping skills, and safety plan (healthy vs unhealthy coping skills, I statements, daily goal) Treatment Modality: Psychoeducation Interventions utilized were active listening, assignment, group exercise, and patient education Purpose: enhance coping skills, improve communication skills, and increase insight or knowledge Name: Manny Mcnally Date of : 2005 MR: [id number] Level of Participation: moderate Quality of Participation: attention seeking, defensive, hyperactive, impulsive, pushed limits, side talking, and superficial Interactions with others: gave feedback Mood/Affect: agitated, flat, and irritable Triggers (if applicable): na Cognition: coherent/clear Progress: Moderate Response: Patient completed folderwork this morning. Plan: patient will be encouraged to complete folderwork until discharge. Patients Problems: Patient Active Problem List Diagnosis Suicidal behavior with attempted self-injury (CMS/HCC) ADHD (attention deficit hyperactivity disorder) Oppositional defiant disorder Autism spectrum disorder MARILEE (generalized anxiety disorder) Moderate episode of recurrent major depressive disorder (CMS/HCC) Normal [facility] LIPID PANELon 06-24-2022 CHOL/HDL 7.04 mg/dL Normal [facility] Comment on above: Performed By: #### L [id number] ####[facility] ([facility] [place] [address] Cholesterol [Mass/Vol] 183 mg/dL High 120-170 [facility] Comment on above: Performed By: #### L [id number] ####[facility] ([facility] [place] [address] Magnesium [Mass/Vol] 227 mg/dL High 37-148 [facility] Comment on above: Result Comment: TRIG LYCERIDE REFERENCE RANGE: 20 YEARS AND OLDER CARDIOVASCULAR RISK LESS THAN 150 mg/dL LOW RISK 150 TO 199 mg/dL BORDERLINE RISK 200 mg/dL AND GREATER HIGH RISK Performed By: #### L [id number] ####[facility] ([facility] [place] [address] Magnesium [Mass/Vol] 112 mg/dL Normal 0-160 [facility] Comment on above: Performed By: #### L [id number] ####[facility] ([facility] [place] [address] Magnesium [Mass/Vol] 26 mg/dL Normal 23-92 [facility] Comment on above: Performed By: #### L [id number] ####[facility] ([facility])[address] [place] [address] NON HDL CHOL. 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 Pt is social with peers. Pt had a verbal outburst towards nursing staff in the morning regarding a card game. Pt is loud. Pt is participating in groups. Pt is able to verbalize reason for admission. Pt is denying depression and anxiety. Pt states they feel an overall improvement in their mood. Pt denies SI, HI, and hallucinations at this time. Pt is eating and drinking adequately. Pt does not tolerate quiet time well. He bangs his door and makes noise. Pt denies any issues with sleeping. Pt denies any other concerns at this time. Pt remains safe from harm. Normal [facility] NURSNOTE Pt rested with eyes closed and easy RR for 8 hour of sleep; q15 min safety checks maintained Normal [facility] 30on 06-23-2022 30 The patient is Moderately Unstable - Medium risk of patient condition declining or worsening The patient's goals for the shift include none stated The clinical goals for the shift include maintain safety Problem: Acute Manic/Hypomanic Symptoms Goal: LTG-Return to less restricted environment 06/23/2022 1436 by Meryl Vázquez RN Outcome: Not Progressing 06/23/2022 1410 by Meryl Vázquez RN Outcome: Not Progressing Goal: LTG-Take medications as prescribed 06/23/2022 1436 by Meryl Vázquez RN Outcome: Not Progressing 06/23/2022 1410 by Meryl Vázquez RN Outcome: Not Progressing Goal: LTG-Demonstrate improved judgement 06/23/2022 1436 by Meryl Vázquez RN Outcome: Not Progressing 06/23/2022 1410 by Meryl Vázquez RN Outcome: Not Progressing Goal: LTG-Demonstrates an improvement in impulsive behaviors 06/23/2022 1436 by Meryl Vázquez RN Outcome: Not Progressing 06/23/2022 1410 by Meryl Vázquez RN Outcome: Not Progressing Goal: STG-Will report an increase in ability to concentrate 06/23/2022 1436 by Meryl Vázquez RN Outcome: Not Progressing 06/23/2022 1410 by Meryl Vázquez RN Outcome: Not Progressing Problem: Aggression Goal: LTG-Control aggressive behaviors with assistance 06/23/2022 1436 by Meryl Vázquez RN Outcome: Not Progressing 06/23/2022 1410 by Meryl Vázquez RN Outcome: Not Progressing Goal: LTG-Demostrate a decrease in aggressive behaviors 06/23/2022 1436 by Meryl Vázquez RN Outcome: Not Progressing 06/23/2022 1410 by Meryl Vázquez RN Outcome: Not Progressing Goal: LTG-Decrease intensity of aggressive outbursts 06/23/2022 1436 by Meryl Vázquez RN Outcome: Not Progressing 06/23/2022 1410 by Meryl Vázquez RN Outcome: Not Progressing Goal: STG-Cooperates with evaluations from physicians/RNs 06/23/2022 1436 by Meryl Vázquez RN Outcome: Not Progressing 06/23/2022 1410 by Meryl Vázquez RN Outcome: Not Progressing Problem: Agitation Goal: LTG-Decrease in targeted symptoms 06/23/2022 1436 by Meryl Vázquez RN Outcome: Not Progressing 06/23/2022 1410 by Meryl Vázquez RN Outcome: Not Progressing Goal: LTG-Allows ADL care 06/23/2022 1436 by Meryl Vázquez RN Outcome: Not Progressing 06/23/2022 1410 by Meryl Vázquez RN Outcome: Not Progressing Goal: LTG-Take medications as prescribed 06/23/2022 1436 by Meryl Vázquez RN Outcome: Not Progressing 06/23/2022 1410 by Meryl Vázquez RN Outcome: Not Progressing Goal: STG-Requires 1 prompts to take medication Outcome: Not Progressing Goal: STG-Demonstrates the ability to concentrate 7 times a week Outcome: Not Progressing Problem: Anxiety Goal: LTG-Return to less restricted environment 06/23/2022 1436 by Meryl Vázquez RN Outcome: Not Progressing 06/23/2022 1410 by Meryl Vázquez RN Outcome: Not Progressing Goal: LTG-Overall frequency and intensity of anxiety symptoms decrease 06/23/2022 1436 by Meryl Vázquez RN Outcome: Not Progressing 06/23/2022 1410 by Meryl Vázquez RN Outcome: Not Progressing Goal: LTG-Decrease worry of fearful thoughts and/or behaviors 06/23/2022 1436 by Meryl Vázquez RN Outcome: Not Progressing 06/23/2022 1410 by Meryl Vázquez RN Outcome: Not Progressing Goal: STG-Can demonstrate or identify two relaxation techniques 06/23/2022 1436 by Meryl Vázquez RN Outcome: Not Progressing 06/23/2022 1410 by Meryl Vázquez RN Outcome: Not Progressing Problem: Depression Goal: LTG-Alleviate depressed mood 06/23/2022 1436 by Meryl Vázquez RN Outcome: Not Progressing 06/23/2022 1410 by Meryl Vázquez RN Outcome: Not Progressing Goal: LTG-Take medications as prescribed 06/23/2022 1436 by Meryl Vázquez RN Outcome: Not Progressing 06/23/2022 1410 by Meryl Vázquez RN Outcome: Not Progressing Goal: LTG-Engage in self care as tolerated 06/23/2022 1436 by Meryl Vázquez RN Outcome: Not Progressing 06/23/2022 1410 by Meryl Vázquez RN Outcome: Not Progressing Goal: LTG-Demonstrate elevation in mood 06/23/2022 1436 by Meryl Vázquez RN Outcome: Not Progressing 06/23/2022 1410 by Meryl Vázquez RN Outcome: Not Progressing Goal: STG-Will perform 100% of self-care by 06/24/2022 Outcome: Not Progressing Goal: STG-Can identify 3 positive things about self Outcome: Not Progressing Problem: Self Harm Goal: LTG-Identify and manage underlying issues that trigger self harm 06/23/2022 1436 by Meryl Vázquez RN Outcome: Not Progressing 06/23/2022 1410 by Meryl Vázquez RN Outcome: Not Progressing Goal: LTG-Learn how to regulate and cope with unhealthy emotions 06/23/2022 1436 by Meryl Vázquez RN Outcome: Not Progressing 06/23/2022 1410 by Meryl Vázquez RN Outcome: Not Progressing Goal: STG-Improve self image and self esteem 06/23/2022 1436 by Meryl Vázquez RN Outcome: Not Progressing 06/23/2022 1410 by Meryl Vázquez RN Outcome: Not Progressing Problem: Suicial Ideation Goal: LTG-Reach optimal level of funct (more content not included)... Normal [facility] 30 The patient is Moderately Unstable - Medium risk of patient condition declining or worsening The patient's goals for the shift include none stated The clinical goals for the shift include maintain safety Problem: Acute Manic/Hypomanic Symptoms Goal: LTG-Return to less restricted environment Outcome: Not Progressing Goal: LTG-Take medications as prescribed Outcome: Not Progressing Goal: LTG-Demonstrate improved judgement Outcome: Not Progressing Goal: LTG-Demonstrates an improvement in impulsive behaviors Outcome: Not Progressing Goal: STG-Will report an increase in ability to concentrate Outcome: Not Progressing Problem: Aggression Goal: LTG-Control aggressive behaviors with assistance Outcome: Not Progressing Goal: LTG-Demostrate a decrease in aggressive behaviors Outcome: Not Progressing Goal: LTG-Decrease intensity of aggressive outbursts Outcome: Not Progressing Goal: STG-Cooperates with evaluations from physicians/RNs Outcome: Not Progressing Problem: Agitation Goal: LTG-Decrease in targeted symptoms Outcome: Not Progressing Goal: LTG-Allows ADL care Outcome: Not Progressing Goal: LTG-Take medications as prescribed Outcome: Not Progressing Problem: Anxiety Goal: LTG-Return to less restricted environment Outcome: Not Progressing Goal: LTG-Overall frequency and intensity of anxiety symptoms decrease Outcome: Not Progressing Goal: LTG-Decrease worry of fearful thoughts and/or behaviors Outcome: Not Progressing Goal: STG-Can demonstrate or identify two relaxation techniques Outcome: Not Progressing Problem: Depression Goal: LTG-Alleviate depressed mood Outcome: Not Progressing Goal: LTG-Take medications as prescribed Outcome: Not Progressing Goal: LTG-Engage in self care as tolerated Outcome: Not Progressing Goal: LTG-Demonstrate elevation in mood Outcome: Not Progressing Problem: Self Harm Goal: LTG-Identify and manage underlying issues that trigger self harm Outcome: Not Progressing Goal: LTG-Learn how to regulate and cope with unhealthy emotions Outcome: Not Progressing Goal: STG-Improve self image and self esteem Outcome: Not Progressing Problem: Suicial Ideation Goal: LTG-Reach optimal level of functioning Outcome: Not Progressing Goal: LTG-Develop suicide safety plan Outcome: Not Progressing Goal: LTG-Verbalize absence of plan Outcome: Not Progressing Normal [facility] 30 The patient is Moderately Unstable - Medium risk of patient condition declining or worsening The patient's goals for the shift include none stated The clinical goals for the shift include maintain safety Problem: Acute Manic/Hypomanic Symptoms Goal: LTG-Return to less restricted environment Outcome: Not Progressing Goal: LTG-Take medications as prescribed Outcome: Not Progressing Goal: LTG-Demonstrate improved judgement Outcome: Not Progressing Goal: LTG-Demonstrates an improvement in impulsive behaviors Outcome: Not Progressing Goal: STG-Will report an increase in ability to concentrate Outcome: Not Progressing Problem: Aggression Goal: LTG-Control aggressive behaviors with assistance Outcome: Not Progressing Goal: LTG-Demostrate a decrease in aggressive behaviors Outcome: Not Progressing Goal: LTG-Decrease intensity of aggressive outbursts Outcome: Not Progressing Goal: STG-Cooperates with evaluations from physicians/RNs Outcome: Not Progressing Problem: Agitation Goal: LTG-Decrease in targeted symptoms Outcome: Not Progressing Goal: LTG-Allows ADL care Outcome: Not Progressing Goal: LTG-Take medications as prescribed Outcome: Not Progressing Problem: Anxiety Goal: LTG-Return to less restricted environment Outcome: Not Progressing Goal: LTG-Overall frequency and intensity of anxiety symptoms decrease Outcome: Not Progressing Goal: LTG-Decrease worry of fearful thoughts and/or behaviors Outcome: Not Progressing Goal: STG-Can demonstrate or identify two relaxation techniques Outcome: Not Progressing Problem: Depression Goal: LTG-Alleviate depressed mood Outcome: Not Progressing Goal: LTG-Take medications as prescribed Outcome: Not Progressing Goal: LTG-Engage in self care as tolerated Outcome: Not Progressing Goal: LTG-Demonstrate elevation in mood Outcome: Not Progressing Problem: Self Harm Goal: LTG-Identify and manage underlying issues that trigger self harm Outcome: Not Progressing Goal: LTG-Learn how to regulate and cope with unhealthy emotions Outcome: Not Progressing Goal: STG-Improve self image and self esteem Outcome: Not Progressing Problem: Suicial Ideation Goal: LTG-Reach optimal level of functioning Outcome: Not Progressing Goal: LTG-Develop suicide safety plan Outcome: Not Progressing Goal: LTG-Verbalize absence of plan Outcome: Not Progressing Normal [facility] 30 The patient is Moderately Unstable - Medium risk of patient condition declining or worsening The patient's goals for the shift include The clinical goals for the shift include Normal [facility] HPon 06-23-2022 HP ---- -------- Attestation signed by Ronit Raygoza MD at 06/23/2022 4:15 PM I personally saw and examined the patient on the same date of service as resident/fellow . I discussed the findings and therapeutic plan with the resident/fellow . I agree with the documentation, except for any edits/updates below. Teaching Physician's Revisions: Reviewed progress with treatment team,adjust psychotropics as needed,discharge planning based on progress. -------- SUBJECTIVE: HISTORY OF PRESENT ILLNESS: CC: 16 year-old Male with a past psychiatric history of ADHD, MDD, MARILEE, ODD and Autism spectrum disorder and no past medical history is admitted to the [facility] inpatient psychiatric unit for safety, evaluation, and treatment of suicidal ideation and question of suicide attempt following the patient cutting himself on the neck and forearm with a piece of glass. Suicidal thoughts began roughly 3 weeks ago following the completed suicide of a friend. 2 weeks ago the patient was admitted from June 13 to at [facility] for suicidal ideation. Following the discharge he was sent home with family. On June 21 he stayed home from school and locked himself in the bathroom. When his sister confronted him and told him she would call the police he had threatened to cut his arms and throat if they came. The police did arrive and he was put on an involuntary hold. During this time multiple surface abrasions to the right forearm and 1 abrasion to the neck were observed. Noting ED doctor stated there would be no need to do more than keeping the cuts clean. The patient is not able to express a trigger to his mood changes at the time of the interview and was not forthcoming about the loss of his friend, information was given by his guardian/aunt. Mode of Transport to the Hospital: EMS Transported from: [facility] Accompanied: No Current Psychiatric Medication: Lamictal 100mg BD Lurasidone 60mg (80mg?) Sertraline 25mg at bedtime PRN medication prior to evaluation: None Collateral Information: Provided by Rhea Vela Rhea is the legal guardian of Manny, and has been so since 2010. Prior to that Asim went with his sister and grandmother who is the previous guardian until 2008 when she became ill with cancer. According to Rhea the patient has never lived with either biological parents. The patient's mom apparently had 6 children by the age of 21 and during this time was partying and using drugs/alcohol. The aunt has suspicion that her sister may have been using while with her children, but has no evidence. Rhea went on to say that her sister in 2011 by reported suicide by hanging, and that the patient's father has never shown interest in being involved in his son's life. POA/Legal Guardian: Rhea Vela PSYCHIATRIC REVIEW OF SYSTEMS: The patient endorses symptoms of depression including pervasive sadness, changes in sleep, anhedonia, feelings of guilt, decreased energy and concentration, feelings of hopelessness or helplessness, and denies suicidal ideation at this time. The patient denies symptoms of lee including manic episodes, decreased need for sleep, distractibility, impulsivity, grandiosity, flight of ideas, increased goal-directed activity, and pressured speech. The patient denies symptoms of psychosis including auditory hallucinations, visual hallucinations, and delusions. The patient denies paranoia. The patient endorses symptoms of anxiety including excessive worry, difficulty controlling worry, restlessness, being easily fatigued, difficulty concentrating, irritability, muscle tension, and sleep disturbance. RISK ASSESSMENT: The patient endorses having passive suicidal thoughts for the past 2-3 years. The patient denies thoughts about wanting to harm others, and denies wanting to hurt himself at this time. The patient denies having access to firearms. The patient's protective factors against suicide include family, intensive therapy. Frequency, Duration, Intensity of suicidal thoughts: 2-3 years The following preparatory behavior was indicated: denies Suicide Risk Factors: [access to means, recent loss, stress/anxiety, family stressors, history of abuse, impulsivity, history of aggression, poor social network, relationship difficulties, poor stress tolerance,self-injurious behavior Suicide protective Factors: family support, active in treatment, stable living environment, responsibility for others, community involvement. Risk Level: high Intervention: Inpatient hospitalization PAST PSYCHIATRIC ILLNESS AND HISTORY: Previous Psychiatric Diagnoses: ADHD, MDD, MARILEE, ODD and Autism spectrum disorder Psychiatric Medication History: Lexapro (3 weeks), Prozac, Adderall (stopped 1 year a (more content not included)... [facility] NURSNOTEon 06-23-2022 NURSNOTE Pt attended group, a te snack, showered and socialized with peers a little more tonight. Pt denies SI/HI and AV hallucinations. Rates depression 0/10, Anxiety 0/10 and anger 2/10. Barn Manager ask what he is irritable about pt declined to answer at this time. Barn Manager educated that if he felt he need to verbalize his feeling to let staff know. Pt appears irritable and has poor eye control. Did answer question respectfully and in a calm manner. Educated pt on medication and q15 min safety checks; pt verbalized understanding Normal [facility] NURSNOTE Pt needed redirected due to outburst yelling SHUT UP ITS NOT FUNNY room became quiet. PT responded to property underwriter inappropriately stating stay out of my conversation you don't know what I'm talking about PT became calm. Barn Manager and pt discussed the rules of the unit, no yelling, screaming at others. Pt did state he understood. Pt advised to come to staff when feeling upset. PT remains safe and free from harm. [facility] NURSNOTE New admit. PT coming from [place], [place]. Pt reports previously had a stay at [facility] ([facility]), discharged 5 days ago. PT states 4 days ago wanted to scare his sister. PT states today that he denies any thoughts of harming self or others, denies any hallucinations. Pt states I don't even know why I'm here Pt does have a hx of cutting and states last year tried to hang self. PT reports a big trigger for depression is being bullied at school. PT is currently on lamicatal, latuda, Zoloft. Pt oriented to unit, visitation, unit schedule, calling schedule. PT voices understanding. PT did bring clothes, clothes were searched nothing found. PT does have tennis shoes on, laces are locked in laundry room. PT is currently joining group. PT remains safe and free from harm. Normal [facility] Absolute lymphocyte counton 06-21-2022 Lymphocytes Auto (Unsp spec) [#/Vol] 2.15 10*3/uL 0.83-4.[address] [facility] Work Phone: Basophil percentageon 2021 Basophils/100 WBC (Bld) 0.3 % 0-[address] [facility] Work Phone: Chloride [Moles/Vol] 108 mmol/L 98-107 [facility] Work [facility]: Eosinophils/100 WBC (Bld) 0.9 % 0-[address] [facility] Work Phone: Glucose [Mass/Vol] 95 mg/dL 74-106 [facility] Work Phone: Neutrophils (Bld) [#/Vol] 6.3 10*3/uL 2.0-7.[address] [facility] Work Phone: Neutrophils/100 WBC (Bld) 68.2 % 34-[address] [facility] Work Phone: Potassium [Moles/Vol] 3.8 mmol/L 3.5-5.1 [facility] Work Phone: Sodium [Moles/Vol] 140 mmol/L 136-145 [facility] Work Phone: WBC (Bld) [#/Vol] 9.3 10*3/uL 4.5-13.0 [facility] Work Phone: Blood erythrocytes count (nu mber/volume)on 06-21-2022 RBC (Bld) [#/Vol] 5.45 10*6/uL 4.5-5.1 [facility]: Blood hemoglobin measurement (mass/volume)on 06-21-2022 Hemoglobin (Bld) [Mass/Vol] 15.4 g/dL 13.0-16.[address] [facility] Work Phone: Blood lymphocytes/100 leukoc yteson 06-21-2022 Lymphocytes/100 WBC (Bld) 23.2 % 25-[address] [facility] Work Phone: Blood monocytes/100 leukocyt eson 06-21-2022 Monocytes/100 WBC (Bld) 7.1 % 3-[address] [facility] Work Phone: Blood platelet mean volumeon 06-21-2022 Platelet mean volume (Bld) [Entitic vol] 10.5 fL 6.2-12.[address] [facility] Work Phone: Determination of erythrocyte mean corpuscular volume (MCV)on 06-21-2022 MCV (RBC) [Entitic vol] 84.2 fL 78-[address] [facility] Work Phone: Hematocrit Auto (Bld) [Volum e fraction]on 06-21-2022 Hematocrit (Bld) [Volume fraction] 45.9 % 36-[address] [facility] Work Phone: Laboratory - Chemistry and C hemistry - challengeon 06-21-2022 CO2 [Moles/Vol] 24.0 mmol/L 21.0-32.[address] [facility] Work Phone: Urea nitrogen/Creatinine [Mass ratio] 11.3 mg/mg 10-[address] [facility] Work Phone: Laboratory - Drug toxicology on 06-21-2022 Amphetamines Ql (U) Negative <1000 ng/mL [facility] Work Phone: Benzodiazepines Ql (U) Negative < 200 ng/mL [facility] Work Phone: Cannabinoids Screen Ql (U) Negative < 50 ng/mL [facility] Work Phone: Cocaine Ql (U) Negative < 300 ng/mL [facility] Work Phone: Opiates Ql (U) Negative < 300 ng/mL [facility] Work Phone: Laboratory - Hematology and Cell countson 06-21-2022 Erythrocyte distribution width (RBC) [Entitic vol] 38.4 fL 35.1-43.[address] [facility] Work Phone: Erythrocyte distribution width (RBC) [Ratio] 12.7 % 11.6-14.[address] [facility] Work Phone: Immature granulocytes/100 WBC (Bld) 0.300 % 0.0-0.[address] [facility] Work Phone: Comment on above: IG% - Immature Granu locytes (promyelocytes, myelocytes and metamyelocytes) > 1% indicates that a LEFT SHIFT is Present. MCH (RBC) [Entitic mass] 28.3 pg 25.0-35.[address] [facility] Work Phone: Nucleated RBC/100 WBC (Bld) [Ratio] 0 % 0-[address] [facility] Work Phone: MCHC Auto (RBC) [Mass/Vol]on 06-21-2022 MCHC (RBC) [Mass/Vol] 33.6 g/dL 32-36 [facility] Work Phone: No Panel Informationon 06-21 MDMA (Ecstasy) Screen Negative < 500 ng/mL [facility] Work Phone: Urine Barbiturates Screen Negative < 200 ng/mL [facility] Work Phone: Urine Drug Screen Comment [facility] Work Phone: Comment on above: CONFIRMATORY TESTING FOR ALL POSITIVE URINE DRUG SCREENRESULTS WILL ONLY BE SENT OUT UPON PHYSICIAN ORDER. VISTA Urine Drug Screen methods provide only preliminaryanalytical test results. A more specific alternate chemicalmethod must be used in order to obtain a confirmedanalytical result. Gas chromatography/mass spectrometery(GC/MS) is the preferred confirmatory method. Clinicalconsideration and professional judgement should be appliedto any drug of abuse test result, particularly whenpreliminary positive results are used. URINE TCA TESTING MUST BE ORDERED SEPARATELY. USE TESTMNEMONIC: [facility] Urine Methadone Screen Negative < 300 ng/mL [facility] Work Phone: Estimated Creatinine Clearance Calc 177.07 ml/min [facility] Work Phone: Estimated GFR (MDRD) [facility] Work Phone: Comment on above: Test not performedAf rican Tunisian GFR Calc Estimated GFR (MDRD) Non-Af [facility] Work Phone: Comment on above: Test not performedNo n- GFR Calc Ethyl Alcohol Level < 3.0 mg/dL [facility] Work Phone: Comment on above: The serum:whole bloo d ethanol ratio is approximately 1.14and varies slightly with hematocrit. Medical Alcohol reference interval and critical value innon-tolerant individuals; 50 - 100 Impairment 100 Intoxication 100 - 250 Severe Poisoning 250 - 400 Deep/possible fatal coma Platelets bldon 06-21-2022 Platelets (Bld) [#/Vol] 356 10*3/uL 150-[address] [facility] Work Phone: Serum or plasma calcium rhona urement (mass/volume)on 06-21-2022 Calcium [Mass/Vol] 9.1 mg/dL 8.5-10.1 [facility] Work Phone: Serum or plasma creatinine m easurement (mass/volume)on 06-21-2022 Creatinine [Mass/Vol] 0.71 mg/dL 0.70-1.30 [facility] Work Phone: Comment on above: The validity of the calculated GFR & GFRAA in patients over 70 years has not been determined. Clinical correlation is essential. Serum or plasma urea nitroge n measurement (mass/volume)on 06-21-2022 Urea nitrogen [Mass/Vol] 8 mg/dL 7-[address] [facility] Work Phone: Thin prep Papanicolaou smear with manual screeningon 06-21-2022 Thin prep Papanicolaou smear with manual screening 8 5-[address] [facility] Work Phone: Urine phencyclidine (PCP) de tectionon 06-21-2022 Phencyclidine Ql (U) Negative < 25 ng/mL [facility] Work Phone: Drugs of Abuse with THC, uri ne-[place] 06-13-2022 Amphetamines, Ur Negative Negative [facility] Comment on above: Threshold = 1000 ng/ mL Barbiturates, Ur Negative Negative [facility] Comment on above: Threshold = 200 ng/m L Benzodiazepines, Ur Negative Negative [facility] Comment on above: Threshold = 200 ng/m L Cocaine Negative Negative [facility] Comment on above: Threshold = 300 ng/m L Methadone, Ur Negative Negative [facility] Comment on above: Threshold = 300 ng/m L Opiates Negative Negative [facility] Comment on above: Threshold = 300 ng/m L PCP-Phencyclidine Negative Negative [facility] Comment on above: Threshold = 25 ng/mL THC,50,Urine Negative Negative [facility] Comment on above: This testing is inte nded for medical management and treatment only. Analysis performed using non-forensic procedures. Threshold = 50 ng/mL Reason for preventin g automatic release->Other Release to patient->Manual release only [facility] Absolute lymphocyte counton 01-08-2022 Lymphocytes Auto (Unsp spec) [#/Vol] 2.07 10*3/uL 0.83-4.[address] [facility] Work Phone: Basophil percentageon 2021 Basophils/100 WBC (Bld) 0.5 % 0-[address] [facility] Work Phone: Chloride [Moles/Vol] 109 mmol/L 98-107 [facility] Work Phone: Eosinophils/100 WBC (Bld) 1.1 % 0-[address] [facility] Work Phone: Glucose [Mass/Vol] 91 mg/dL 74-106 [facility] Work Phone: Neutrophils (Bld) [#/Vol] 4.7 10*3/uL 2.0-7.[address] [facility] Work Phone: Neutrophils/100 WBC (Bld) 63.0 % 34-[address] [facility] Work Phone: Potassium [Moles/Vol] 3.7 mmol/L 3.5-5.1 Lee [facility] Work Phone: Sodium [Moles/Vol] 141 mmol/L 136-[facility]: WBC (Bld) [#/Vol] 7.4 10*3/uL 4.5-13.0 [facility]: Blood erythrocytes count (nu mber/volume)on 01-08-2022 RBC (Bld) [#/Vol] 5.22 10*6/uL 4.5-5.[facility]: Blood hemoglobin measurement (mass/volume)on 01-08-2022 Hemoglobin (Bld) [Mass/Vol] 14.6 g/dL 13.0-16.[address] [facility] Work Phone: Blood lymphocytes/100 leukoc yteson 01-08-2022 Lymphocytes/100 WBC (Bld) 27.8 % 25-[address] [facility] Work Phone: Blood monocytes/100 leukocyt eson 01-08-2022 Monocytes/100 WBC (Bld) 7.3 % 3-[address] [facility] Work Phone: Blood platelet mean volumeon 01-08-2022 Platelet mean volume (Bld) [Entitic vol] 10.1 fL 6.2-12.[address] [facility] Work Phone: Determination of erythrocyte mean corpuscular volume (MCV)on 01-08-2022 MCV (RBC) [Entitic vol] 84.3 fL 78-[address] [facility] Work Phone: Hematocrit Auto (Bld) [Volum e fraction]on 01-08-2022 Hematocrit (Bld) [Volume fraction] 44.0 % 36-[address] [facility] Work Phone: Laboratory - Chemistry and C hemistry - challengeon 01-08-2022 CO2 [Moles/Vol] 26.0 mmol/L 21.0-32.[address] [facility] Work Phone: Urea nitrogen/Creatinine [Mass ratio] 16.9 mg/mg 10-[address] [facility] Work Phone: Laboratory - Drug toxicology on 01-08-2022 Amphetamines Ql (U) Negative [facility] Work Phone: Benzodiazepines Ql (U) Negative [facility] Work Phone: Cannabinoids Screen Ql (U) Negative [facility] Work Phone: Cocaine Ql (U) Negative [facility] Work Phone: Opiates Ql (U) Negative [facility] Work Phone: Laboratory - Hematology and Cell countson 01-08-2022 Erythrocyte distribution width (RBC) [Entitic vol] 38.3 fL 35.1-43.[address] [facility] Work Phone: Erythrocyte distribution width (RBC) [Ratio] 12.4 % 11.6-14.[address] [facility] Work Phone: Immature granulocytes/100 WBC (Bld) 0.300 % 0.0-0.[address] [facility] Work Phone: Comment on above: IG% - Immature Granu locytes (promyelocytes, myelocytes and metamyelocytes) > 1% indicates that a LEFT SHIFT is Present. MCH (RBC) [Entitic mass] 28.0 pg 25.0-35.[address] [facility] Work Phone: Nucleated RBC/100 WBC (Bld) [Ratio] 0 % 0-[address] [facility] Work Phone: MCHC Auto (RBC) [Mass/Vol]on 01-08-2022 MCHC (RBC) [Mass/Vol] 33.2 g/dL 32-36 [facility] Work Phone: No Panel Informationon 01-08 MDMA (Ecstasy) Screen Negative [facility] Work Phone: Urine Barbiturates Screen Negative [facility] Work Phone: Urine Drug Screen Comment [facility] Work Phone: Comment on above: CONFIRMATORY TESTING FOR ALL POSITIVE URINE DRUG SCREENRESULTS WILL ONLY BE SENT OUT UPON PHYSICIAN ORDER. VISTA Urine Drug Screen methods provide only preliminaryanalytical test results. A more specific alternate chemicalmethod must be used in order to obtain a confirmedanalytical result. Gas chromatography/mass spectrometery(GC/MS) is the preferred confirmatory method. Clinicalconsideration and professional judgement should be appliedto any drug of abuse test result, particularly whenpreliminary positive results are used. URINE TCA TESTING MUST BE ORDERED SEPARATELY. USE TESTMNEMONIC: [facility] Urine Methadone Screen Negative [facility] Work Phone: Estimated Creatinine Clearance Calc 163.28 ml/min [facility] Work Phone: Estimated GFR (MDRD) [facility] Work Phone: Comment on above: Test not performedAf rican Tunisian GFR Calc Estimated GFR (MDRD) [facility] Work Phone: Comment on above: Test not performedNo n- GFR Calc Ethyl Alcohol Level < 3.0 mg/dL [facility] Work Phone: Comment on above: The serum:whole bloo d ethanol ratio is approximately 1.14and varies slightly with hematocrit. Medical Alcohol reference interval and critical value innon-tolerant individuals; 50 - 100 Impairment 100 Intoxication 100 - 250 Severe Poisoning 250 - 400 Deep/possible fatal coma Platelets bldon 01-08-2022 Platelets (Bld) [#/Vol] 304 10*3/uL 150-[address] [facility] Work Phone: Serum or plasma calcium rhona urement (mass/volume)on 01-08-2022 Calcium [Mass/Vol] 9.3 mg/dL 8.5-10.1 [facility] Work Phone: Serum or plasma creatinine m easurement (mass/volume)on 01-08-2022 Creatinine [Mass/Vol] 0.77 mg/dL 0.70-1.30 [facility] Work Phone: Comment on above: The validity of the calculated GFR & GFRAA in patients over 70 years has not been determined. Clinical correlation is essential. Serum or plasma urea nitroge n measurement (mass/volume)on 01-08-2022 Urea nitrogen [Mass/Vol] 13 mg/dL 7-[address] [facility] Work Phone: Thin prep Papanicolaou smear with manual screeningon 01-08-2022 Thin prep Papanicolaou smear with manual screening 6 5-[address] [facility] Work Phone: Urine phencyclidine (PCP) de tectionon 01-08-2022 Phencyclidine Ql (U) Negative [facility] Work Phone: Absolute lymphocyte counton 12-03-2021 Lymphocytes Auto (Unsp spec) [#/Vol] 2.09 10*3/uL 0.83-4.[address] [facility] Work Phone: Basophil percentageon 2021 Basophils/100 WBC (Bld) 0.5 % 0-[address] [facility] Work Phone: Chloride [Moles/Vol] 109 mmol/L 98-107 [facility] Work Phone: Eosinophils/100 WBC (Bld) 0.9 % 0-[address] [facility] Work Phone: Glucose [Mass/Vol] 97 mg/dL 74-106 [facility] Work Phone: Neutrophils (Bld) [#/Vol] 6.3 10*3/uL 2.0-7.[address] [facility] Work Phone: Neutrophils/100 WBC (Bld) 67.6 % 34-[address] [facility] Work Phone: Potassium [Moles/Vol] 3.7 mmol/L 3.5-5.1 [facility] Work Phone: Sodium [Moles/Vol] 143 mmol/L 136-145 [facility] Work Phone: WBC (Bld) [#/Vol] 9.3 10*3/uL 4.5-13.0 [facility] Work Phone: Blood erythrocytes count (nu mber/volume)on 12-03-2021 RBC (Bld) [#/Vol] 5.09 10*6/uL 4.5-5.1 [facility]: Blood hemoglobin measurement (mass/volume)on 12-03-2021 Hemoglobin (Bld) [Mass/Vol] 14.6 g/dL 13.0-16.[address] [facility] Work Phone: Blood lymphocytes/100 leukoc yteson 12-03-2021 Lymphocytes/100 WBC (Bld) 22.5 % 25-[address] [facility] Work Phone: Blood monocytes/100 leukocyt eson 12-03-2021 Monocytes/100 WBC (Bld) 8.2 % 3-[address] [facility] Work Phone: Blood platelet mean volumeon 12-03-2021 Platelet mean volume (Bld) [Entitic vol] 10.3 fL 6.2-12.[address] [facility] Work Phone: Determination of erythrocyte mean corpuscular volume (MCV)on 12-03-2021 MCV (RBC) [Entitic vol] 83.5 fL 78-[address] [facility] Work Phone: Hematocrit Auto (Bld) [Volum e fraction]on 12-03-2021 Hematocrit (Bld) [Volume fraction] 42.5 % 36-[address] [facility] Work Phone: Laboratory - Chemistry and C hemistry - challengeon 12-03-2021 CO2 [Moles/Vol] 29.0 mmol/L 21.0-32.[address] [facility] Work Phone: Urea nitrogen/Creatinine [Mass ratio] 18.9 mg/mg 10-[address] [facility] Work Phone: Laboratory - Drug toxicology on 12-03-2021 Amphetamines Ql (U) Negative [facility] Work Phone: Benzodiazepines Ql (U) Negative [facility] Work Phone: Cannabinoids Screen Ql (U) Negative [facility] Work Phone: Cocaine Ql (U) Negative [facility] Work Phone: Opiates Ql (U) Negative [facility] Work Phone: Laboratory - Hematology and Cell countson 12-03-2021 Erythrocyte distribution width (RBC) [Entitic vol] 38.4 fL 35.1-43.[address] [facility] Work Phone: Erythrocyte distribution width (RBC) [Ratio] 12.6 % 11.6-14.[address] [facility] Work Phone: Immature granulocytes/100 WBC (Bld) 0.300 % 0.0-0.[address] [facility] Work Phone: Comment on above: IG% - Immature Granu locytes (promyelocytes, myelocytes and metamyelocytes) > 1% indicates that a LEFT SHIFT is Present. MCH (RBC) [Entitic mass] 28.7 pg 25.0-35.[address] [facility] Work Phone: Nucleated RBC/100 WBC (Bld) [Ratio] 0 % 0-[address] [facility] Work Phone: MCHC Auto (RBC) [Mass/Vol]on 12-03-2021 MCHC (RBC) [Mass/Vol] 34.4 g/dL 32-36 [facility] Work Phone: No Panel Informationon 12-03 MDMA (Ecstasy) Screen Negative [facility] Work Phone: Urine Barbiturates Screen Negative [facility] Work Phone: Urine Drug Screen Comment [facility] Work Phone: Comment on above: CONFIRMATORY TESTING FOR ALL POSITIVE URINE DRUG SCREENRESULTS WILL ONLY BE SENT OUT UPON PHYSICIAN ORDER. VISTA Urine Drug Screen methods provide only preliminaryanalytical test results. A more specific alternate chemicalmethod must be used in order to obtain a confirmedanalytical result. Gas chromatography/mass spectrometery(GC/MS) is the preferred confirmatory method. Clinicalconsideration and professional judgement should be appliedto any drug of abuse test result, particularly whenpreliminary positive results are used. URINE TCA TESTING MUST BE ORDERED SEPARATELY. USE TESTMNEMONIC: [facility] Urine Methadone Screen Negative [facility] Work Phone: Estimated Creatinine Clearance Calc 155.37 ml/min [facility] Work Phone: Estimated GFR (MDRD) [facility] Work Phone: Comment on above: Test not performedAf rican Tunisian GFR Calc Estimated GFR (MDRD) Non-Af [facility] Work Phone: Comment on above: Test not performedNo n- GFR Calc Ethyl Alcohol Level < 3.0 mg/dL [facility] Work Phone: Comment on above: The serum:whole bloo d ethanol ratio is approximately 1.14and varies slightly with hematocrit. Medical Alcohol reference interval and critical value innon-tolerant individuals; 50 - 100 Impairment 100 Intoxication 100 - 250 Severe Poisoning 250 - 400 Deep/possible fatal coma Platelets bldon 12-03-2021 Platelets (Bld) [#/Vol] 323 10*3/uL 150-[address] [facility] Work Phone: Serum or plasma calcium rhona urement (mass/volume)on 12-03-2021 Calcium [Mass/Vol] 9.0 mg/dL 8.5-10.1 [facility] Work Phone: Serum or plasma creatinine m easurement (mass/volume)on 12-03-2021 Creatinine [Mass/Vol] 0.79 mg/dL 0.50-0.80 [facility] Work Phone: Serum or plasma urea nitroge n measurement (mass/volume)on 12-03-2021 Urea nitrogen [Mass/Vol] 15 mg/dL 7-[address] [facility] Work Phone: Thin prep Papanicolaou smear with manual screeningon 12-03-2021 Thin prep Papanicolaou smear with manual screening 5 5-[address] [facility] Work Phone: Urine phencyclidine (PCP) de tectionon 12-03-2021 Phencyclidine Ql (U) Negative [facility] Work Phone: COVID-19, MOLECULARon 2021 SARS-CoV-2 (COVID-19) RNA LEIGHA+probe Ql (Unsp spec) Not detected Normal Not Detected [facility] Comment on above: Order Comment: This test was performed under the FDA's Emergency Use Authorization (EUA). Testing was performed using the Jonny Agustin SARS-CoV-2 RT-PCR AND Influenza A/B Nucleic Acid Test on the Agustin Doretha System. This test has not been approved for use in asymptomatic patients and its performance in this patient population has not been evaluated. Negative results do not rule out the presence of SARS-CoV-2, influenza A, and/or influenza B. Fact sheets for the EUA can be found at the following links: For Healthcare Providers: https://www.fda.gov/media/587223/download For Patients: https://www.fda.gov/media/419995/download Performed By: #### L [id number] #### [facility] [address] [place], [place] [address] Evan Perkins M.D. [id number] Absolute lymphocyte counton 11-25-2021 Lymphocytes Auto (Unsp spec) [#/Vol] 2.14 10*3/uL 0.83-4.[address] [facility] Work Phone: Basophil percentageon 2021 Basophils/100 WBC (Bld) 0.5 % 0-[address] [facility] Work Phone: Chloride [Moles/Vol] 108 mmol/L 98-107 [facility] Work [facility]: [phone] Eosinophils/100 WBC (Bld) 0.5 % 0-[address] [facility] Work Phone: [phone] Glucose [Mass/Vol] 95 mg/dL 74-106 [facility] Work Phone: Neutrophils (Bld) [#/Vol] 4.6 10*3/uL 2.0-7.[address] [facility] Work Phone: [phone] Neutrophils/100 WBC (Bld) 61.0 % 34-[address] [facility] Work Phone: Potassium [Moles/Vol] 4.3 mmol[facility]L 3.5[facility]: Sodium [Moles/Vol] 141 mmol/L 136-145 [facility] Work [facility]: WBC (Bld) [#/Vol] 7.5 10*3/uL 4.5-13.0 [facility] Work Phone: Blood erythrocytes count (nu mber/volume)on 11-25-2021 RBC (Bld) [#/Vol] 5.06 10*6/uL 4.5-5.1 [facility]: Blood hemoglobin measurement (mass/volume)on 11-25-2021 Hemoglobin (Bld) [Mass/Vol] 14.5 g/dL 13.0-16.[address] [facility] Work Phone: [phone] Blood lymphocytes/100 leukoc yteson 11-25-2021 Lymphocytes/100 WBC (Bld) 28.5 % 25-[address] [facility] Work Phone: [phone] Blood monocytes/100 leukocyt eson 11-25-2021 Monocytes/100 WBC (Bld) 9.0 % 3-[address] [facility] Work Phone: Blood platelet mean volumeon 11-25-2021 Platelet mean volume (Bld) [Entitic vol] 9.8 fL 6.2-12.[address] [facility] Work Phone: Determination of erythrocyte mean corpuscular volume (MCV)on 11-25-2021 MCV (RBC) [Entitic vol] 86.0 fL 78-[address] [facility] Work Phone: Hematocrit Auto (Bld) [Volum e fraction]on 11-25-2021 Hematocrit (Bld) [Volume fraction] 43.5 % 36-[address] [facility] Work Phone: Laboratory - Chemistry and C hemistry - challengeon 11-25-2021 CO2 [Moles/Vol] 29.0 mmol/L 21.0-32.[address] [facility] Work Phone: Urea nitrogen/Creatinine [Mass ratio] 19.8 mg/mg 10-[address] [facility] Work Phone: Laboratory - Drug toxicology on 11-25-2021 Amphetamines Ql (U) Negative [facility] Work Phone: Benzodiazepines Ql (U) Negative [facility] Work Phone: Cannabinoids Screen Ql (U) Negative [facility] Work Phone: Cocaine Ql (U) Negative [facility] Work Phone: Opiates Ql (U) Negative [facility] Work Phone: Laboratory - Hematology and Cell countson 11-25-2021 Erythrocyte distribution width (RBC) [Entitic vol] 40.2 fL 35.1-43.[address] [facility] Work Phone: Erythrocyte distribution width (RBC) [Ratio] 12.9 % 11.6-14.[address] [facility] Work Phone: Immature granulocytes/100 WBC (Bld) 0.500 % 0.0-0.[address] [facility] Work Phone: Comment on above: IG% - Immature Granu locytes (promyelocytes, myelocytes and metamyelocytes) > 1% indicates that a LEFT SHIFT is Present. MCH (RBC) [Entitic mass] 28.7 pg 25.0-35.[address] [facility] Work Phone: Nucleated RBC/100 WBC (Bld) [Ratio] 0 % 0-[address] [facility] Work Phone: MCHC Auto (RBC) [Mass/Vol]on 11-25-2021 MCHC (RBC) [Mass/Vol] 33.3 g/dL 32-36 [facility] Work Phone: No Panel Informationon 11-25 MDMA (Ecstasy) Screen Negative [facility] Work Phone: Urine Barbiturates Screen Negative [facility] Work Phone: Urine Drug Screen Comment [facility] Work Phone: Comment on above: CONFIRMATORY TESTING FOR ALL POSITIVE URINE DRUG SCREENRESULTS WILL ONLY BE SENT OUT UPON PHYSICIAN ORDER. VISTA Urine Drug Screen methods provide only preliminaryanalytical test results. A more specific alternate chemicalmethod must be used in order to obtain a confirmedanalytical result. Gas chromatography/mass spectrometery(GC/MS) is the preferred confirmatory method. Clinicalconsideration and professional judgement should be appliedto any drug of abuse test result, particularly whenpreliminary positive results are used. URINE TCA TESTING MUST BE ORDERED SEPARATELY. USE TESTMNEMONIC: [facility] Urine Methadone Screen Negative [facility] Work Phone: Estimated Creatinine Clearance Calc 161.50 ml/min [facility] Work Phone: Estimated GFR (MDRD) [facility] Work Phone: Comment on above: Test not performedAf rican Tunisian GFR Calc Estimated GFR (MDRD) Non-Af [facility] Work Phone: Comment on above: Test not performedNo n- GFR Calc Ethyl Alcohol Level < 3.0 mg/dL [facility] Work Phone: Comment on above: The serum:whole bloo d ethanol ratio is approximately 1.14and varies slightly with hematocrit. Medical Alcohol reference interval and critical value innon-tolerant individuals; 50 - 100 Impairment 100 Intoxication 100 - 250 Severe Poisoning 250 - 400 Deep/possible fatal coma Platelets bldon 11-25-2021 Platelets (Bld) [#/Vol] 344 10*3/uL 150-[address] [facility] Work Phone: Serum or plasma calcium rhona urement (mass/volume)on 11-25-2021 Calcium [Mass/Vol] 9.4 mg/dL 8.5-10.1 [facility] Work Phone: Serum or plasma creatinine m easurement (mass/volume)on 11-25-2021 Creatinine [Mass/Vol] 0.76 mg/dL 0.50-0.80 [facility] Work Phone: Serum or plasma urea nitroge n measurement (mass/volume)on 11-25-2021 Urea nitrogen [Mass/Vol] 15 mg/dL 7-[address] [facility] Work Phone: Thin prep Papanicolaou smear with manual screeningon 11-25-2021 Thin prep Papanicolaou smear with manual screening 4 5-[address] [facility] Work Phone: Urine phencyclidine (PCP) de tectionon 11-25-2021 Phencyclidine Ql (U) Negative [facility] Work Phone: Absolute lymphocyte counton 10-24-2021 Lymphocytes Auto (Unsp spec) [#/Vol] 1.63 10*3/uL 0.83-4.[address] [facility] Work Phone: Basophil percentageon 2021 Basophils/100 WBC (Bld) 0.5 % 0-[address] [facility] Work Phone: Chloride [Moles/Vol] 107 mmol/L 98-107 [facility] Work Phone: Eosinophils/100 WBC (Bld) 0.5 % 0-[address] [facility] Work Phone: Glucose [Mass/Vol] 94 mg/dL 74-106 [facility] Work Phone: Neutrophils (Bld) [#/Vol] 6.0 10*3/uL 2.0-7.[address] [facility] Work Phone: Neutrophils/100 WBC (Bld) 71.0 % 34-[address] [facility] Work Phone: Potassium [Moles/Vol] 4.0 mmol/L 3.5-5.1 [facility] Work Phone: Sodium [Moles/Vol] 138 mmol/L 136-145 [facility] Work Phone: [phone] WBC (Bld) [#/Vol] 8.4 10*3/uL 4.5-13.0 [facility] Work Phone: Blood erythrocytes count (nu mber/volume)on 10-24-2021 RBC (Bld) [#/Vol] 5.45 10*6/uL 4.5-5.1 [facility] Work Phone: Blood hemoglobin measurement (mass/volume)on 10-24-2021 Hemoglobin (Bld) [Mass/Vol] 15.7 g/dL 13.0-16.[address] [facility] Work Phone: Blood lymphocytes/100 leukoc yteson 10-24-2021 Lymphocytes/100 WBC (Bld) 19.3 % 25-[address] [facility] Work Phone: Blood monocytes/100 leukocyt eson 10-24-2021 Monocytes/100 WBC (Bld) 8.3 % 3-[address] [facility] Work Phone: Blood platelet mean volumeon 10-24-2021 Platelet mean volume (Bld) [Entitic vol] 10.3 fL 6.2-12.[address] [facility] Work Phone: Determination of erythrocyte mean corpuscular volume (MCV)on 10-24-2021 MCV (RBC) [Entitic vol] 84.4 fL 78-[address] [facility] Work Phone: Hematocrit Auto (Bld) [Volum e fraction]on 10-24-2021 Hematocrit (Bld) [Volume fraction] 46.0 % 36-[address] [facility] Work Phone: Laboratory - Chemistry and C hemistry - challengeon 10-24-2021 CO2 [Moles/Vol] 27.0 mmol/L 21.0-32.[address] [facility] Work Phone: Urea nitrogen/Creatinine [Mass ratio] 10.5 mg/mg 10-[address] [facility] Work Phone: Laboratory - Drug toxicology on 10-24-2021 Amphetamines Ql (U) Positive [facility] Work Phone: Benzodiazepines Ql (U) Negative [facility] Work Phone: Cannabinoids Screen Ql (U) Negative [facility] Work Phone: Cocaine Ql (U) Negative [facility] Work Phone: Opiates Ql (U) Negative [facility] Work Phone: Laboratory - Hematology and Cell countson 10-24-2021 Erythrocyte distribution width (RBC) [Entitic vol] 38.8 fL 35.1-43.[address] [facility] Work Phone: Erythrocyte distribution width (RBC) [Ratio] 12.6 % 11.6-14.[address] [facility] Work Phone: Immature granulocytes/100 WBC (Bld) 0.400 % 0.0-0.[address] [facility] Work Phone: Comment on above: IG% - Immature Granu locytes (promyelocytes, myelocytes and metamyelocytes) > 1% indicates that a LEFT SHIFT is Present. MCH (RBC) [Entitic mass] 28.8 pg 25.0-35.[address] [facility] Work Phone: Nucleated RBC/100 WBC (Bld) [Ratio] 0 % 0-[address] [facility] Work Phone: MCHC Auto (RBC) [Mass/Vol]on 10-24-2021 MCHC (RBC) [Mass/Vol] 34.1 g/dL 32-36 [facility] Work Phone: No Panel Informationon 10-24 Urine Barbiturates Screen Negative [facility] Work Phone: Urine Drug Screen Comment [facility] Work Phone: Comment on above: CONFIRMATORY TESTING FOR ALL POSITIVE URINE DRUG SCREENRESULTS WILL ONLY BE SENT OUT UPON PHYSICIAN ORDER. VISTA Urine Drug Screen methods provide only preliminaryanalytical test results. A more specific alternate chemicalmethod must be used in order to obtain a confirmedanalytical result. Gas chromatography/mass spectrometery(GC/MS) is the preferred confirmatory method. Clinicalconsideration and professional judgement should be appliedto any drug of abuse test result, particularly whenpreliminary positive results are used. URINE TCA TESTING MUST BE ORDERED SEPARATELY. USE TESTMNEMONIC: [facility] Urine Methadone Screen Negative [facility] Work Phone: Urine Methamphetamine-MDMA Screen Negative [facility] Work Phone: Estimated Creatinine Clearance Calc 161.50 ml/min [facility] Work Phone: Estimated GFR (MDRD) [facility] Work Phone: Comment on above: Test not performedAf rican Tunisian GFR Calc Estimated GFR (MDRD) Non-Af [facility] Work Phone: Comment on above: Test not performedNo n- GFR Calc Ethyl Alcohol Level < 3.0 mg/dL [facility] Work Phone: Comment on above: The serum:whole bloo d ethanol ratio is approximately 1.14and varies slightly with hematocrit. Medical Alcohol reference interval and critical value innon-tolerant individuals; 50 - 100 Impairment 100 Intoxication 100 - 250 Severe Poisoning 250 - 400 Deep/possible fatal coma SARS-CoV-2 Antigen (Rapid) [facility] Work Phone: Platelets bldon 10-24-2021 Platelets (Bld) [#/Vol] 286 10*3/uL 150-[address] [facility] Work Phone: Serum or plasma calcium rhona urement (mass/volume)on 10-24-2021 Calcium [Mass/Vol] 9.2 mg/dL 8.5-10.1 [facility] Work Phone: Serum or plasma creatinine m easurement (mass/volume)on 10-24-2021 Creatinine [Mass/Vol] 0.76 mg/dL 0.50-0.80 [facility] Work Phone: Serum or plasma urea nitroge n measurement (mass/volume)on 10-24-2021 Urea nitrogen [Mass/Vol] 8 mg/dL 7-[address] [facility] Work Phone: Thin prep Papanicolaou smear with manual screeningon 10-24-2021 Thin prep Papanicolaou smear with manual screening 4 5-[address] [facility] Work Phone: Urine phencyclidine (PCP) de tectionon 10-24-2021 Phencyclidine Ql (U) Negative [facility] Work Phone: Absolute lymphocyte counton 10-12-2021 Lymphocytes Auto (Unsp spec) [#/Vol] 2.65 10*3/uL 0.83-4.[address] [facility] Work Phone: Basophil percentageon 2021 Basophils/100 WBC (Bld) 0.4 % 0-[address] [facility] Work Phone: Bilirubin [Mass/Vol] 0.30 mg/dL 0.20-1.00 [facility] Work Phone: Comment on above: For patients on eltr ombopag therapy, use of Dimension [place] TBIL is not recommended. Chloride [Moles/Vol] 108 mmol/L 98-107 [facility] Work Phone: Eosinophils/100 WBC (Bld) 0.5 % 0-[address] [facility] Work Phone: Glucose [Mass/Vol] 101 mg/dL 74-106 [facility] Work Phone: Comment on above: Fasting Glucose resu lt from 100 to 125 mg/dL suggests IMPAIRED HOMEOSTASIS per A.D.A. criteria. Neutrophils (Bld) [#/Vol] 6.9 10*3/uL 2.0-7.[address] [facility] Work Phone: Neutrophils/100 WBC (Bld) 66.1 % 34-[address] [facility] Work Phone: Potassium [Moles/Vol] 4.0 mmol/L 3.5-5.1 [facility] Work Phone: Protein [Mass/Vol] 7.8 g/dL 6.4-8.2 [facility] Work Phone: Sodium [Moles/Vol] 141 mmol/L 136-145 [facility] Work Phone: WBC (Bld) [#/Vol] 10.4 10*3/uL 4.5-13.0 [facility]: Blood erythrocytes count (nu mber/volume)on 10-12-2021 RBC (Bld) [#/Vol] 5.36 10*6/uL 4.5-5.1 [facility] Work Phone: Blood hemoglobin measurement (mass/volume)on 10-12-2021 Hemoglobin (Bld) [Mass/Vol] 15.5 g/dL 13.0-16.[address] [facility] Work Phone: Blood lymphocytes/100 leukoc yteson 10-12-2021 Lymphocytes/100 WBC (Bld) 25.6 % 25-[address] [facility] Work Phone: Blood monocytes/100 leukocyt eson 10-12-2021 Monocytes/100 WBC (Bld) 6.9 % 3-[address] [facility] Work Phone: Blood platelet mean volumeon 10-12-2021 Platelet mean volume (Bld) [Entitic vol] 9.9 fL 6.2-12.[address] [facility] Work Phone: Determination of erythrocyte mean corpuscular volume (MCV)on 10-12-2021 MCV (RBC) [Entitic vol] 84.0 fL 78-[address] [facility] Work Phone: Hematocrit Auto (Bld) [Volum e fraction]on 10-12-2021 Hematocrit (Bld) [Volume fraction] 45.0 % 36-[address] [facility] Work Phone: Laboratory - Chemistry and C hemistry - challengeon 10-12-2021 ALP [Catalytic activity/Vol] 166 U/L 74-[address] [facility] Work Phone: ALT [Catalytic activity/Vol] 75 U/L 16-[address] [facility] Work Phone: CO2 [Moles/Vol] 25.0 mmol/L 21.0-32.[address] [facility] Work Phone: Globulin (S) [Mass/Vol] 3.5 g/dL 2.2-4.[address] [facility] Work Phone: Urea nitrogen/Creatinine [Mass ratio] 19.7 mg/mg 10-[address] [facility] Work Phone: Laboratory - Drug toxicology on 10-12-2021 Amphetamines Ql (U) Positive [facility] Work Phone: Benzodiazepines Ql (U) Negative [facility] Work Phone: Cannabinoids Screen Ql (U) Negative [facility] Work Phone: Cocaine Ql (U) Negative [facility] Work Phone: [phone] Opiates Ql (U) Negative [facility] Work Phone: Laboratory - Hematology and Cell countson 10-12-2021 Erythrocyte distribution width (RBC) [Entitic vol] 38.7 fL 35.1-43.[address] [facility] Work Phone: Erythrocyte distribution width (RBC) [Ratio] 12.7 % 11.6-14.[address] [facility] Work Phone: Immature granulocytes/100 WBC (Bld) 0.500 % 0.0-0.[address] [facility] Work Phone: Comment on above: IG% - Immature Granu locytes (promyelocytes, myelocytes and metamyelocytes) > 1% indicates that a LEFT SHIFT is Present. MCH (RBC) [Entitic mass] 28.9 pg 25.0-35.[address] [facility] Work Phone: Nucleated RBC/100 WBC (Bld) [Ratio] 0 % 0-[address] [facility] Work Phone: MCHC Auto (RBC) [Mass/Vol]on 10-12-2021 MCHC (RBC) [Mass/Vol] 34.4 g/dL 32-36 [facility] Work Phone: No Panel Informationon 10-12 Urine Barbiturates Screen Negative [facility] Work Phone: Urine Drug Screen Comment [facility] Work Phone: Comment on above: CONFIRMATORY TESTING FOR ALL POSITIVE URINE DRUG SCREENRESULTS WILL ONLY BE SENT OUT UPON PHYSICIAN ORDER. VISTA Urine Drug Screen methods provide only preliminaryanalytical test results. A more specific alternate chemicalmethod must be used in order to obtain a confirmedanalytical result. Gas chromatography/mass spectrometery(GC/MS) is the preferred confirmatory method. Clinicalconsideration and professional judgement should be appliedto any drug of abuse test result, particularly whenpreliminary positive results are used. URINE TCA TESTING MUST BE ORDERED SEPARATELY. USE TESTMNEMONIC: [facility] Urine Methadone Screen Negative [facility] Work Phone: Urine Methamphetamine-MDMA Screen Positive [facility] Work Phone: Estimated Creatinine Clearance Calc 161.50 ml/min [facility] Work Phone: Estimated GFR (MDRD) Amer TNP [facility] Work Phone: Comment on above: Test not performedAf rican Tunisian GFR Calc Estimated GFR (MDRD) Non-Af Amer TNP [facility] Work Phone: Comment on above: Test not performedNo n- GFR Calc Ethyl Alcohol Level < 3.0 mg/dL [facility] Work Phone: Comment on above: The serum:whole bloo d ethanol ratio is approximately 1.14and varies slightly with hematocrit. Medical Alcohol reference interval and critical value innon-tolerant individuals; 50 - 100 Impairment 100 Intoxication 100 - 250 Severe Poisoning 250 - 400 Deep/possible fatal coma SARS-CoV-2 Antigen (Rapid) [facility] Work Phone: Platelets bldon 10-12-2021 Platelets (Bld) [#/Vol] 329 10*3/uL 150-[address] [facility] Work Phone: Serum or plasma albumin rhona urement (mass/volume)on 10-12-2021 Albumin [Mass/Vol] 4.3 g/dL 3.2-5.0 [facility] Work Phone: Serum or plasma albumin/glob ulin mass ratioon 10-12-2021 Albumin/Globulin [Mass ratio] 1.2 {ratio} 0.9-2.[address] [facility] Work Phone: Serum or plasma calcium rhona urement (mass/volume)on 10-12-2021 Calcium [Mass/Vol] 9.4 mg/dL 8.5-10.1 [facility] Work Phone: Serum or plasma creatinine m easurement (mass/volume)on 10-12-2021 Creatinine [Mass/Vol] 0.76 mg/dL 0.50-0.80 [facility] Work Phone: Serum or plasma urea nitroge n measurement (mass/volume)on 10-12-2021 Urea nitrogen [Mass/Vol] 15 mg/dL 7-[address] [facility] Work Phone: Thin prep Papanicolaou smear with manual screeningon 10-12-2021 Thin prep Papanicolaou smear with manual screening 24 U/L 15-[address] [facility] Work Phone: Thin prep Papanicolaou smear with manual screening 8 5-[address] [facility] Work Phone: Urine phencyclidine (PCP) de tectionon 10-12-2021 Phencyclidine Ql (U) Negative [facility] Work Phone: Absolute lymphocyte counton 09-08-2021 Lymphocytes Auto (Unsp spec) [#/Vol] 2.28 10*3/uL 0.83-4.[address] [facility] Work Phone: [phone] Basophil percentageon 2021 Basophils/100 WBC (Bld) 0.5 % 0-[address] [facility] Work Phone: Chloride [Moles/Vol] 105 mmol/L 98-107 [facility] Work Phone: Eosinophils/100 WBC (Bld) 0.6 % 0-[address] [facility] Work Phone: Glucose [Mass/Vol] 103 mg/dL 74-106 [facility] Work Phone: Comment on above: Fasting Glucose resu lt from 100 to 125 mg/dL suggests IMPAIRED HOMEOSTASIS per A.D.A. criteria.Please note revised GLUCOSE reference range effective 2017. Neutrophils (Bld) [#/Vol] 5.5 10*3/uL 2.0-7.[address] [facility] Work Phone: Neutrophils/100 WBC (Bld) 64.6 % 34-[address] [facility] Work Phone: Potassium [Moles/Vol] 4.0 mmol/L 3.5-5.1 [facility] Work Phone: [phone] Sodium [Moles/Vol] 140 mmol/L 136-145 [facility] Work Phone: [phone] WBC (Bld) [#/Vol] 8.5 10*3/uL 4.5-13.0 [facility] Work Phone: Blood erythrocytes count (nu mber/volume)on 09-08-2021 RBC (Bld) [#/Vol] 5.43 10*6/uL 4.5-5.1 [facility] Work Phone: Blood hemoglobin measurement (mass/volume)on 09-08-2021 Hemoglobin (Bld) [Mass/Vol] 15.6 g/dL 13.0-16.[address] [facility] Work Phone: Blood lymphocytes/100 leukoc yteson 09-08-2021 Lymphocytes/100 WBC (Bld) 26.9 % 25-[address] [facility] Work Phone: Blood monocytes/100 leukocyt eson 09-08-2021 Monocytes/100 WBC (Bld) 6.8 % 3-[address] [facility] Work Phone: Blood platelet mean volumeon 09-08-2021 Platelet mean volume (Bld) [Entitic vol] 9.9 fL 6.2-12.[address] [facility] Work Phone: Determination of erythrocyte mean corpuscular volume (MCV)on 09-08-2021 MCV (RBC) [Entitic vol] 83.8 fL 78-[address] [facility] Work Phone: Hematocrit Auto (Bld) [Volum e fraction]on 09-08-2021 Hematocrit (Bld) [Volume fraction] 45.5 % 36-[address] [facility] Work Phone: Laboratory - Chemistry and C hemistry - challengeon 09-08-2021 CO2 [Moles/Vol] 27.0 mmol/L 21.0-32.[address] [facility] Work Phone: Urea nitrogen/Creatinine [Mass ratio] 23.0 mg/mg 10-[address] [facility] Work Phone: Laboratory - Drug toxicology on 09-08-2021 Amphetamines Ql (U) Positive [facility] Work Phone: Benzodiazepines Ql (U) Negative [facility] Work Phone: Cannabinoids Screen Ql (U) Negative [facility] Work Phone: Cocaine Ql (U) Negative [facility] Work Phone: Opiates Ql (U) Negative [facility] Work Phone: Laboratory - Hematology and Cell countson 09-08-2021 Erythrocyte distribution width (RBC) [Entitic vol] 38.5 fL 35.1-43.[address] [facility] Work Phone: Erythrocyte distribution width (RBC) [Ratio] 12.7 % 11.6-14.[address] [facility] Work Phone: Immature granulocytes/100 WBC (Bld) 0.600 % 0.0-0.[address] [facility] Work Phone: Comment on above: IG% - Immature Granu locytes (promyelocytes, myelocytes and metamyelocytes) > 1% indicates that a LEFT SHIFT is Present. MCH (RBC) [Entitic mass] 28.7 pg 25.0-35.[address] [facility] Work Phone: Nucleated RBC/100 WBC (Bld) [Ratio] 0 % 0-[address] [facility] Work Phone: MCHC Auto (RBC) [Mass/Vol]on 09-08-2021 MCHC (RBC) [Mass/Vol] 34.3 g/dL 32-36 [facility] Work Phone: No Panel Informationon 09-08 Estimated Creatinine Clearance Calc 175.35 ml/min [facility] Work Phone: Estimated GFR (MDRD) [facility] Work Phone: Comment on above: Test not performedAf rican Tunisian GFR Calc Estimated GFR (MDRD) Non-Af [facility] Work Phone: Comment on above: Test not performedNo n- GFR Calc Ethyl Alcohol Level < 3.0 mg/dL [facility] Work Phone: Comment on above: The serum:whole bloo d ethanol ratio is approximately 1.14and varies slightly with hematocrit. Medical Alcohol reference interval and critical value innon-tolerant individuals; 50 - 100 Impairment 100 Intoxication 100 - 250 Severe Poisoning 250 - 400 Deep/possible fatal coma Urine Barbiturates Screen Negative [facility] Work Phone: Urine Drug Screen Comment [facility] Work Phone: Comment on above: CONFIRMATORY TESTING FOR ALL POSITIVE URINE DRUG SCREENRESULTS WILL ONLY BE SENT OUT UPON PHYSICIAN ORDER. VISTA Urine Drug Screen methods provide only preliminaryanalytical test results. A more specific alternate chemicalmethod must be used in order to obtain a confirmedanalytical result. Gas chromatography/mass spectrometery(GC/MS) is the preferred confirmatory method. Clinicalconsideration and professional judgement should be appliedto any drug of abuse test result, particularly whenpreliminary positive results are used. URINE TCA TESTING MUST BE ORDERED SEPARATELY. USE TESTMNEMONIC: [facility] Urine Methadone Screen Negative [facility] Work Phone: Urine Methamphetamine-MDMA Screen Negative [facility] Work Phone: Platelets bldon 09-08-2021 Platelets (Bld) [#/Vol] 318 10*3/uL 150-[address] [facility] Work Phone: Serum or plasma calcium rhona urement (mass/volume)on 09-08-2021 Calcium [Mass/Vol] 9.6 mg/dL 8.5-10.1 [facility] Work Phone: Serum or plasma creatinine m easurement (mass/volume)on 09-08-2021 Creatinine [Mass/Vol] 0.70 mg/dL 0.50-0.80 [facility] Work Phone: Serum or plasma urea nitroge n measurement (mass/volume)on 09-08-2021 Urea nitrogen [Mass/Vol] 16 mg/dL 7-[address] [facility] Work Phone: Thin prep Papanicolaou smear with manual screeningon 09-08-2021 Thin prep Papanicolaou smear with manual screening 8 5-[address] [facility] Work Phone: Urine phencyclidine (PCP) de tectionon 09-08-2021 Phencyclidine Ql (U) Negative [facility] Work Phone: Vital Signs Date Time Vital Sign Value Performing Clinician Facility 04-13-2024 14:03-0400 Body temperature 98.1 [degF] Krislyn Aberegg PA Work Phone: [facility] 04-13-2024 14:03-0400 Body weight 124.6 kg Krislyn Aberegg PA Work Phone: [facility] 04-13-2024 14:03-0400 Diastolic blood pressure 84 mm[Hg] Krislyn Aberegg PA Work Phone: [facility] 04-13-2024 14:03-0400 Heart rate 65 /min Krislyn Aberegg PA Work Phone: [facility] 04-13-2024 14:03-0400 Respiratory rate 16 /min Krislyn Aberegg PA Work Phone: [facility] 04-13-2024 14:03-0400 SaO2% (BldA) [Mass fraction] 98 % Krislyn Aberegg PA Work Phone: [facility] 04-13-2024 14:03-0400 Systolic blood pressure 132 mm[Hg] Krislyn Aberegg PA Work Phone: [facility] 12-27-2022 18:00-0400 Diastolic blood pressure 78 mm[Hg] [facility] 12-27-2022 18:00-0400 Heart rate 98 /min [facility] 12-27-2022 18:00-0400 Respiratory rate 16 /min [facility] 12-27-2022 18:00-0400 SaO2% (BldA) [Mass fraction] 100 % [facility] 12-27-2022 18:00-0400 Systolic blood pressure 134 mm[Hg] [facility] 12-26-2022 23:57-0400 Body temperature 97.8 [degF] [facility] 12-26-2022 15:32-0400 Body height 180.34 cm [facility] 12-26-2022 15:32-0400 Body mass index (BMI) [Percentile] Per age and sex 99.8 % [facility] 12-26-2022 15:32-0400 Body mass index (BMI) [Ratio] 42.1 kg/m2 [facility] 12-26-2022 15:32-0400 Body weight 137.07 kg [facility] 12-24-2022 16:00-0400 Diastolic blood pressure 90 mm[Hg] [facility] 12-24-2022 16:00-0400 Heart rate 90 /min [facility] 12-24-2022 16:00-0400 Respiratory rate 16 /min [facility] 12-24-2022 16:00-0400 SaO2% (BldA) [Mass fraction] 98 % [facility] 12-24-2022 16:00-0400 Systolic blood pressure 140 mm[Hg] [facility] 12-24-2022 14:15-0400 Body mass index (BMI) [Percentile] Per age and sex 99.8 % [facility] 12-24-2022 14:15-0400 Body mass index (BMI) [Ratio] 42.5 kg/m2 [facility] 12-24-2022 14:15-0400 Body temperature 97.6 [degF] [facility] 12-24-2022 14:15-0400 Body weight 138.34 kg [facility] 08-06-2022 15:41-0500 Body temperature 98.2 [degF] Ashley Ruiz MD Work Phone: [facility] 08-06-2022 15:41-0500 Body weight 134.4 kg Ashley Ruiz MD Work Phone: [facility] 08-06-2022 15:41-0500 Diastolic blood pressure 79 mm[Hg] Ashley Ruiz MD Work Phone: [facility] 08-06-2022 15:41-0500 Heart rate 91 /min Ashley Ruiz MD Work Phone: [facility] 08-06-2022 15:41-0500 Respiratory rate 20 /min Ashley Ruiz MD Work Phone: [facility] 08-06-2022 15:41-0500 SaO2% (BldA) [Mass fraction] 99 % Ashley Ruiz MD Work Phone: [facility] 08-06-2022 15:41-0500 Systolic blood pressure 134 mm[Hg] Ashley Ruiz MD Work Phone: [facility] 06-28-2022 12:43-0400 Diastolic blood pressure 78 mm[Hg] [facility] Work Phone: 06-28-2022 12:43-0400 Heart rate 66 /min [facility] Work Phone: 06-28-2022 12:43-0400 Respiratory rate 18 /min [facility] Work Phone: 06-28-2022 12:43-0400 SaO2% (BldA) [Mass fraction] 99 % [facility] Work Phone: 06-28-2022 12:43-0400 Systolic blood pressure 115 mm[Hg] [facility] Work Phone: 06-28-2022 09:44-0400 Body height 180.34 cm [facility] Work Phone: 06-28-2022 09:44-0400 Body mass index (BMI) [Percentile] Per age and sex 99.7 % [facility] Work Phone: 06-28-2022 09:44-0400 Body mass index (BMI) [Ratio] 40.8 kg/m2 [facility] Work Phone: 06-28-2022 09:44-0400 Body temperature 98.2 [degF] [facility] Work Phone: 06-28-2022 09:44-0400 Body weight 133 kg [facility] Work Phone: 06-23-2022 09:04-0400 Diastolic blood pressure 99 mm[Hg] [facility] Work Phone: 06-23-2022 09:04-0400 Heart rate 87 /min [facility] Work Phone: 06-23-2022 09:04-0400 Respiratory rate 16 /min [facility] Work Phone: 06-23-2022 09:04-0400 SaO2% (BldA) [Mass fraction] 96 % [facility] Work Phone: 06-23-2022 09:04-0400 Systolic blood pressure 143 mm[Hg] [facility] Work Phone: 06-23-2022 06:00-0400 Body temperature 98.1 [degF] [facility] Work Phone: 06-21-2022 13:06-0400 Body height 177.8 cm [facility] Work Phone: 06-21-2022 13:06-0400 Body mass index (BMI) [Percentile] Per age and sex 99.8 % [facility] Work Phone: 06-21-2022 13:06-0400 Body mass index (BMI) [Ratio] 42 kg/m2 [facility] Work Phone: 06-21-2022 13:06-0400 Body weight 133 kg [facility] Work Phone: 06-14-2022 03:41-0400 Body temperature 97 [degF] Chapis Son DO Work Phone: [facility] 06-14-2022 03:41-0400 Diastolic blood pressure 89 mm[Hg] Chapis Son DO Work Phone: [facility] 06-14-2022 03:41-0400 Heart rate 66 /min Chapis Son DO Work Phone: [facility] 06-14-2022 03:41-0400 Respiratory rate 18 /min Chapis Son DO Work Phone: [facility] 06-14-2022 03:41-0400 SaO2% (BldA) [Mass fraction] 97 % Chapis Son DO Work Phone: [facility] 06-14-2022 03:41-0400 Systolic blood pressure 145 mm[Hg] Chapis Son DO Work Phone: [facility] 06-13-2022 16:01-0400 Body weight 132 kg Chapis Son DO Work Phone: [facility] 01-08-2022 19:15-0400 Body temperature 98.2 [degF] [facility] Work Phone: 01-08-2022 19:15-0400 Diastolic blood pressure 72 mm[Hg] [facility] Work Phone: 01-08-2022 19:15-0400 Heart rate 63 /min [facility] Work Phone: 01-08-2022 19:15-0400 Respiratory rate 16 /min [facility] Work Phone: 01-08-2022 19:15-0400 SaO2% (BldA) [Mass fraction] 98 % [facility] Work Phone: 01-08-2022 19:15-0400 Systolic blood pressure 132 mm[Hg] [facility] Work Phone: 01-08-2022 15:08-0400 Body height 177.8 cm [facility] Work Phone: 01-08-2022 15:08-0400 Body mass index (BMI) [Ratio] 40.1 kg/m2 [facility] Work Phone: 01-08-2022 15:08-0400 Body weight 127 kg [facility] Work Phone: 12-03-2021 21:50-0400 Body height 175.26 cm [facility] Work Phone: 12-03-2021 21:50-0400 Body mass index (BMI) [Ratio] 39.9 kg/m2 [facility] Work Phone: 12-03-2021 21:50-0400 Body temperature 97.4 [degF] [facility] Work Phone: 12-03-2021 21:50-0400 Body weight 122.46 kg [facility] Work Phone: 12-03-2021 21:50-0400 Diastolic blood pressure 81 mm[Hg] [facility] Work Phone: 12-03-2021 21:50-0400 Heart rate 89 /min [facility] Work Phone: 12-03-2021 21:50-0400 Respiratory rate 18 /min [facility] Work Phone: 12-03-2021 21:50-0400 SaO2% (BldA) [Mass fraction] 97 % [facility] Work Phone: 12-03-2021 21:50-0400 Systolic blood pressure 137 mm[Hg] [facility] Work Phone: 11-26-2021 00:08-0400 Diastolic blood pressure 82 mm[Hg] [facility] Work Phone: 11-26-2021 00:08-0400 Heart rate 76 /min [facility] Work Phone: 11-26-2021 00:08-0400 Respiratory rate 16 /min [facility] Work Phone: 11-26-2021 00:08-0400 SaO2% (BldA) [Mass fraction] 97 % [facility] Work Phone: 11-26-2021 00:08-0400 Systolic blood pressure 141 mm[Hg] [facility] Work Phone: 11-25-2021 19:41-0400 Body mass index (BMI) [Ratio] 40.7 kg/m2 [facility] Work Phone: 11-25-2021 19:41-0400 Body temperature 98.6 [degF] [facility] Work Phone: 11-25-2021 19:41-0400 Body weight 125.19 kg [facility] Work Phone: 10-25-2021 13:08-0500 Body temperature 98.1 [degF] [facility] Work Phone: 10-25-2021 13:08-0500 Diastolic blood pressure 86 mm[Hg] [facility] Work Phone: 10-25-2021 13:08-0500 Heart rate 94 /min [facility] Work Phone: 10-25-2021 13:08-0500 Respiratory rate 18 /min [facility] Work Phone: 10-25-2021 13:08-0500 SaO2% (BldA) [Mass fraction] 95 % [facility] Work Phone: 10-25-2021 13:08-0500 Systolic blood pressure 124 mm[Hg] [facility] Work Phone: 10-24-2021 16:34-0500 Body mass index (BMI) [Ratio] 39 kg/m2 [facility] Work Phone: 10-24-2021 16:34-0500 Body weight 120 kg [facility] Work Phone: 10-15-2021 18:22-0500 Diastolic blood pressure 82 mm[Hg] [facility] Work Phone: 10-15-2021 18:22-0500 Heart rate 88 /min [facility] Work Phone: 10-15-2021 18:22-0500 Respiratory rate 16 /min [facility] Work Phone: 10-15-2021 18:22-0500 SaO2% (BldA) [Mass fraction] 98 % [facility] Work Phone: 10-15-2021 18:22-0500 Systolic blood pressure 136 mm[Hg] [facility] Work Phone: 10-15-2021 05:17-0500 Body temperature 97.7 [degF] [facility] Work Phone: 10-12-2021 20:52-0500 Body mass index (BMI) [Ratio] 39 kg/m2 [facility] Work Phone: 10-12-2021 20:52-0500 Body weight 120 kg [facility] Work Phone: 09-11-2021 20:40-0500 Body temperature 97.16 [degF] DR CLAUDIA BURNHAM DO [facility] 09-11-2021 20:40-0500 Diastolic blood pressure 85 mm[Hg] DR CLAUDIA BURNHAM DO [facility] 09-11-2021 20:40-0500 Heart rate 80 /min DR CLAUDIA BURNHAM DO [facility] 09-11-2021 20:40-0500 Respiratory rate 18 /min DR CLAUDIA BURNHAM DO [facility] 09-11-2021 20:40-0500 Systolic blood pressure 132 mm[Hg] DR CLAUDIA BURNHAM DO [facility] 09-08-2021 02:30-0500 Diastolic blood pressure 78 mm[Hg] [facility] Work Phone: 09-08-2021 02:30-0500 Heart rate 80 /min [facility] Work Phone: 09-08-2021 02:30-0500 Respiratory rate 16 /min [facility] Work Phone: 09-08-2021 02:30-0500 Systolic blood pressure 136 mm[Hg] [facility] Work Phone: 09-07-2021 22:59-0500 Body mass index (BMI) [Ratio] 37.3 kg/m2 [facility] Work Phone: 09-07-2021 22:59-0500 Body temperature 97.6 [degF] [facility] Work Phone: 09-07-2021 22:59-0500 Body weight 114.75 kg [facility] Work Phone: 09-07-2021 22:59-0500 SaO2% (BldA) [Mass fraction] 100 % [facility] Work Phone: Encounters Encounter Date Encounter Type Care Provider Facility Start: 01-02-2025 End: 01-02-2025 Emergency department patient visit Marek Booker Facility:[facility] Start: 08-20-2024 End: 08-20-2024 ambulatory [facility] Start: 08-14-2024 End: 08-14-2024 ambulatory [facility] Start: 04-25-2024 End: 04-25-2024 ambulatory [facility] Start: 04-13-2024 End: 04-13-2024 ambulatory SALLIE CASTELLANOS RASHAD Facility:[facility] Start: 04-13-2024 End: 04-13-2024 Patient encounter procedure Christos NELSON Work Phone: [facility] Comment on above: Skin infection (Prim dominique Dx) Start: 02-12-2024 End: 02-12-2024 ambulatory [facility] Start: 12-27-2023 End: 12-27-2023 ambulatory SALLIE [facility] Start: 11-29-2023 End: 11-29-2023 ambulatory [facility]IE [facility] Start: 10-31-2023 End: 10-31-2023 ambulatory SALLIE R RASHAD [facility] Start: 10-22-2023 End: 10-22-2023 ambulatory FABBY Justice MAULIK [facility] Start: 10-08-2023 End: 10-08-2023 ambulatory FABBY H MAULIK [facility] Start: 09-20-2023 End: 09-20-2023 ambulatory SELF REFERRED [facility] Start: 08-15-2023 End: 08-16-2023 ambulatory FABBY MAULIK Facility:[facility] Start: 06-20-2023 End: 10-18-2023 ambulatory BRITTANY MAR APRN Facility:[facility] Start: 05-30-2023 End: 05-31-2023 ambulatory SALLIE~[id number] RASHAD RASHAD SALLIE Facility:[facility] Start: 03-22-2023 End: 03-23-2023 ambulatory FABBY WILLINGHAM Facility:[facility] Start: 01-24-2023 End: 01-24-2023 Subsequent hospital visit by physician Arleen [facility] Work Phone: Radiology Comment on above: Acute cough [R05.1] Start: 12-26-2022 End: 12-27-2022 Emergency department patient visit [facility] Start: 12-24-2022 End: 12-24-2022 Emergency department patient visit [facility] Start: 08-06-2022 End: 08-06-2022 Emergency department patient visit Ashley Ruiz MD Work Phone: [facility] Start: 06-28-2022 End: 06-28-2022 Emergency department patient visit [facility] Start: 06-23-2022 End: 06-26-2022 Evaluation and management of inpatient REFERRED SELF [facility] Start: 06-21-2022 End: 06-23-2022 Emergency department patient visit [facility] Start: 06-13-2022 End: 06-14-2022 Emergency department patient visit Chapis Mari DO Work Phone: [facility] Start: 01-08-2022 End: 01-08-2022 Emergency department patient visit [facility] Start: 12-03-2021 End: 12-04-2021 Emergency department patient visit [facility] Start: 11-26-2021 End: 12-03-2021 Evaluation and management of inpatient SALLIE [facility] Start: 11-25-2021 End: 11-26-2021 Emergency department patient visit [facility] Start: 10-24-2021 End: 10-25-2021 Emergency department patient visit [facility] Start: 10-12-2021 End: 10-15-2021 Emergency department patient visit [facility] Start: 09-11-2021 End: 09-11-2021 Emergency department patient visit DR CLAUDIA BURNHAM DO [facility] Start: 09-07-2021 End: 09-08-2021 Emergency department patient visit [facility] Procedures Date Procedure Procedure Detail Performing Clinician Start: 01-24-2023 Radiologic exam ches t 2 views Evan Oneill APRN.CNP Work Phone: Start: 08-06-2022 DRUGS OF ABUSE WITH THC, URINE-FABIO Ruiz MD Work Phone: Start: 06-13-2022 DRUGS OF ABUSE WITH THC, URINE-FABIO Chapis Mari DO Work Phone: Start: 01-08-2022 End: 01-08-2022 Viral antigen assay Start: 12-03-2021 End: 12-03-2021 Viral antigen assay Start: 12-03-2021 Plain x-ray of hand Start: 11-25-2021 Plain x-ray of hand Start: 11-25-2021 End: 11-25-2021 Viral antigen assay Start: 10-24-2021 SARS-CoV-2 Antigen (Rapid) Start: 10-12-2021 SARS-CoV-2 Antigen (Rapid) Viral antigen assay Viral antigen assay Plan of Treatment Date Care Activity Detail Author Start: 05-16-2027 Tetanus Diphtheria and Pertussis Vaccines (7 - Td or Tdap) Tetanus Diphtheria and Pertussis Vaccines (7 - Td or Tdap) [facility] Start: 05-16-2027 Urine microalbumin profile DTaP,Tdap,Td Vaccine (7 - Td or Tdap) [facility] Start: 05-04-2024 Covid-19 Vaccine ( season) Covid-19 Vaccine () [facility] Start: 05-04-2024 Influenza vaccination Influenza Vaccine (#1) [facility] Start: 12-22-2023 Anxiety Screening Anxiety Screening [facility] Start: 12-22-2023 Depression Screening Depression Screening [facility] Start: 12-22-2023 Hepatitis C screening Hepatitis C Screening [facility] Start: 12-22-2023 HIV screening HIV Screening [facility] Start: 11-26-2023 Meningococcal B Vaccine: Consider Based On Risk (2 of 2 - Risk Bexsero 2-dose series) Meningococcal B Vaccine: Consider Based On Risk (2 of 2 - Risk Bexsero 2-dose series) [facility] Start: 05-04-2023 Covid-19 Vaccine () Covid-19 Vaccine () [facility] Start: 12-26-2022 Lamotrigine measurement [facility] Start: 12-26-2022 Referral to service [facility] Start: 12-26-2022 End: 12-26-2022 Suicide precautions [facility] Start: 06-28-2022 Suicide precautions [facility] Work Phone: Start: 06-21-2022 Referral to service [facility] Work Phone: Start: 06-21-2022 End: 06-21-2022 Suicide precautions [facility] Work Phone: Start: 06-16-2022 End: 06-16-2022 ambulatory 06/16/2022 Telehealth Psychiatry Fabby Willingham, [employer] [address] [place] [address] [facility] Start: 05-04-2022 FLU (#1) FLU (#1) [facility] Start: 12-31-2021 Well Visit Well Visit [facility] Start: 2021 MenACWY (2 - 2-dose series) MenACWY (2 - 2-dose series) [facility] Start: 2021 MenB (1 of 2 - MenB 2-Dose Series) MenB (1 of 2 - MenB 2-Dose Series) [facility] Start: 10-21-2021 AIMS 6 Month Check AIMS 6 Month Check [facility] Start: 08-17-2021 COVID-19 (3 - Booster for Pfizer series) COVID-19 (3 - Booster for Pfizer series) [facility] Start: 2020 Vision Screening Vision Screening [facility] Start: 12-22-2019 Peds To Adult Transition Annual Assessment Peds To Adult Transition Annual Assessment [facility] Start: 2017 Peds To Adult Transition Initial Discussion Peds To Adult Transition Initial Discussion [facility] Patient Education [facility] Work Phone: Patient referral [facility] Work Phone: Immunizations Immunization Date Immunization Notes Care Provider Fa cili 10-29-2023 influenza virus vacc ine, unspecified formulation Christos NELSON Work Phone: [facility] 08-06-2022 influenza, injectabl e, quadrivalent, preservative free Ashley Ruiz MD Work Phone: [facility] 06-22-2021 PFIZER (purple cap) COVID-19, mRNA, LNP-S, 30mcg/0.3mL dose Chapis Son DO Work Phone: [facility] 05-30-2021 influenza, injectabl e, quadrivalent, preservative free Chapis Son DO Work Phone: [facility] 05-30-2021 PFIZER (purple cap) COVID-19, mRNA, LNP-S, 30mcg/0.3mL dose Chapis Son DO Work Phone: [facility] 07-16-2019 hepatitis B vaccine, pediatric or pediatric/adolescent dosage Chapis Son DO Work Phone: [facility] 12-25-2018 Human Papillomavirus 9-valent vaccine Chapis Son DO Work Phone: [facility] 05-22-2018 Human Papillomavirus 9-valent vaccine Chapis Son DO Work Phone: [facility] 05-16-2017 meningococcal polysaccharide (groups A, C, Y and W-135) diphtheria toxoid conjugate vaccine (MCV4P) Chapis Son DO Work Phone: [facility] 05-16-2017 tetanus toxoid, redu luz maria diphtheria toxoid, and acellular pertussis vaccine, adsorbed Chapis Son DO Work Phone: [facility] 09-22-2015 influenza, live, intranasal, quadrivalent Chapis Son DO Work Phone: [facility] 06-17-2012 influenza virus vacc ine, live, attenuated, for intranasal use Chapis Son DO Work Phone: [facility] 05-15-2012 influenza virus vacc ine, live, attenuated, for intranasal use Chapis Son DO Work Phone: [facility] 12-26-2010 diphtheria, tetanus toxoids and acellular pertussis vaccine Chapis Son DO Work Phone: [facility] 12-26-2010 measles, mumps, rube lla, and varicella virus vaccine Chapis Son DO Work Phone: [facility] 12-26-2010 poliovirus vaccine, inactivated Chapis Son DO Work Phone: [facility] 09-30-2009 hepatitis A vaccine, pediatric/adolescent dosage, 2 dose schedule Chapis Son DO Work Phone: [facility] 09-30-2009 pneumococcal conjuga te vaccine, 7 valent Chapis Son DO Work Phone: [facility] 07-23-2007 diphtheria, tetanus toxoids and acellular pertussis vaccine Chapis Son DO Work Phone: [facility] 07-23-2007 haemophilus influenz ae type b vaccine, HbOC conjugate Krislyn Aberegg PA Work Phone: [facility] 07-23-2007 haemophilus influenz ae type b vaccine, PRP-T conjugate Chapis Son DO Work Phone: [facility] 04-01-2007 hepatitis A vaccine, pediatric/adolescent dosage, 2 dose schedule Chapis Son DO Work Phone: [facility] 04-01-2007 hepatitis A vaccine, unspecified formulation Chapis Son DO Work Phone: [facility] 12-31-2006 diphtheria, tetanus toxoids and acellular pertussis vaccine Chapis Son DO Work Phone: [facility] 12-31-2006 DTaP-hepatitis B and poliovirus vaccine Chapis Son DO Work Phone: [facility] 12-31-2006 haemophilus influenz ae type b vaccine, HbOC conjugate Krislyn Aberegg PA Work Phone: [facility] 12-31-2006 haemophilus influenz ae type b vaccine, PRP-T conjugate Chapis Son DO Work Phone: [facility] 12-31-2006 hepatitis B vaccine, pediatric or pediatric/adolescent dosage Chapis Son DO Work Phone: [facility] 12-31-2006 measles, mumps and rubella virus vaccine Chapis Son DO Work Phone: [facility] 12-31-2006 measles, mumps, rube lla, and varicella virus vaccine Chapis Son DO Work Phone: [facility] 12-31-2006 pneumococcal conjuga te vaccine, 7 valent Chapis Son DO Work Phone: [facility] 12-31-2006 poliovirus vaccine, inactivated Chapis Son DO Work Phone: [facility] 12-31-2006 varicella virus vaccine Esth er Son DO Work Phone: [facility] 11-22-2006 diphtheria, tetanus toxoids and acellular pertussis vaccine Chapis Son DO Work Phone: [facility] 11-22-2006 DTaP-hepatitis B and poliovirus vaccine Chapis Son DO Work Phone: [facility] 11-22-2006 haemophilus influenz ae type b vaccine, HbOC conjugate Christos NELSON Work Phone: [facility] 11-22-2006 haemophilus influenz ae type b vaccine, PRP-T conjugate Chapis Son DO Work Phone: [facility] 11-22-2006 hepatitis B vaccine, pediatric or pediatric/adolescent dosage Chapis Son DO Work Phone: [facility] 11-22-2006 pneumococcal conjuga te vaccine, 7 valent Chapis Son DO Work Phone: [facility] 11-22-2006 poliovirus vaccine, inactivated Chapis Son DO Work Phone: [facility] 03-17-2006 diphtheria, tetanus toxoids and acellular pertussis vaccine Chapis Son DO Work Phone: [facility] 03-17-2006 DTaP-hepatitis B and poliovirus vaccine Chapis Son DO Work Phone: [facility] 03-17-2006 haemophilus influenz ae type b vaccine, HbOC conjugate Christos NELSON Work Phone: [facility] 03-17-2006 haemophilus influenz ae type b vaccine, PRP-T conjugate Chapis Son DO Work Phone: [facility] 03-17-2006 hepatitis B vaccine, pediatric or pediatric/adolescent dosage Chapis Son DO Work Phone: [facility] 03-17-2006 pneumococcal conjuga te vaccine, 7 valent Chapis Son DO Work Phone: [facility] 03-17-2006 poliovirus vaccine, inactivated Chapis Son DO Work Phone: [facility] Payers Date Payer Category Payer Self-pay [id number] 2022 Medicaid [employer] [place] [id number] 2022-[facility] [phone] [place] [address] Medicaid [id number] 2022 Unknown [id number] 2019 Unknown [id number] 2005 Unknown [id number] 2005 Unknown [id number] 2005 Unknown [id number] 2005 Unknown [id number] 2005 Unknown [id number] 1982 Unknown [id number] 1982 Unknown [id number] 1982 Unknown [id number] 1982 Unknown [id number] 1982 Unknown [id number] 1982 Unknown [id number] 1978 Unknown [id number] 1978 Unknown [id number] 1978 Unknown [id number] 1959 Unknown [id number] Unknown [id number] Unknown [id number] Social History Date Type Detail Facility [facility] Start: 2005 Sex Assigned At Male [facility] Start: 12-03-2021 End: 12-26-2022 Tobacco smoking status INIS Unknown if ever smoked [facility] Start: 09-03-2019 End: 08-06-2022 Tobacco smoking status INIS Occasional tobacco smoker [facility] Start: 09-03-2019 History of tobacco use Tobacco Use Types Packs/Day Years Used Date Smoking Tobacco: Some Days Vaping Started: 2019 Smokeless Tobacco: Never [facility] Start: 06-13-2022 End: 04-13-2024 Tobacco use and exposure Smokeless tobacco non-user [facility] Start: 06-13-2022 End: 08-06-2022 Alcohol intake Ex-drinker (finding) [facility] Start: 04-18-2021 History SDOH Alcohol Frequency 1 [facility] Start: 2005 Sex Assigned At Not on file [facility] Start: 06-03-2022 End: 06-13-2022 Exposure to SARS-CoV-2 (event) Unable to assess [facility] Start: 08-06-2022 Tobacco Comment May 2022 last use [facility] Start: 08-06-2022 Alcohol Comment last consumed 2-3 years ago [facility] Start: 01-17-2023 End: 04-13-2024 Tobacco smoking status NHIS Never smoked tobacco [facility] History of tobacco use Passive smoker [facility] Start: 01-24-2023 End: 04-13-2024 Alcohol intake Not Asked [facility] Start: 01-24-2023 End: 04-13-2024 History of Social function [facility] Start: 01-24-2023 End: 04-13-2024 Tobacco use panel [facility] Start: 01-17-2023 Tobacco Comment parents smoke [facility] Clinical Notes 09-11-2021 to 04-13-2024 Christos Orozco PA - 04/13/2024 2:09 PM EDTDaGeneva irizarry RT(R) - 01/24/2023 11:30 AM EDT Note Date & Type Note Facility 04-13-2024 Note HNO ID: [id number] Author: CHRISTOS OROZCO PA Service: ? 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 Subjective Manny Mcnally is a 18 year old male. HPI 18-year-old male presents for rash to left leg. Patient has had a rash on his left leg for the past 5 to 6 days. He states it is itchy. No drainage from the area. He thinks it might be a bug bite. He does have some redness of the area. He has not put anything on it. No fevers. No rash anywhere else. No new lotions, detergents, body washes or medication. No other complaint. PAST MEDICAL HISTORY No date: Routine or ritual circumcision No date: Unspecified and jaundice PAST SURGICAL HISTORY No date: CIRCUMCISION W/CLAMP/OTH DEV W/BLOCK ALLERGIES Patient has no known allergies. MEDICATIONS methylphenidate ER (CONCERTA) 36 mg biphasic tablet Take 36 mg by mouth once daily. fluvoxaMINE (LUVOX) 100 mg tablet Take by mouth. lamoTRIgine (LAMICTAL) 100 mg tablet Take 50 mg by mouth. QUEtiapine XR (SEROQUEL XR) 50 mg Tb24 Take 100 mg by mouth. buPROPion (WELLBUTRIN) 75 mg tablet lamoTRIgine (LAMICTAL) 100 mg tablet Take 100 mg by mouth twice daily. lithium carbonate (ESKALITH) 150 mg capsule lithium carbonate (ESKALITH) 300 mg capsule doxycycline (VIBRA-TABS) 100 mg tablet Take 1 tablet by mouth two times a day for 7 days. mupirocin (BACTROBAN) 2 % ointment Apply to affected area three times a day for 7 days. guanFACINE (TENEX) 1 mg tablet (Patient not taking: Reported on 04/13/2024) lurasidone (LATUDA) 40 mg tablet (Patient not taking: Reported on 01/24/2023) sertraline (ZOLOFT) 50 mg tablet (Patient not taking: Reported on 01/24/2023) traZODone (DESYREL) 50 mg tablet (Patient not taking: Reported on 04/13/2024) ALBUTEROL 90 MCG/ACTUATION AEROSOL INHALER Inhale one(1) - two(2) puffs four(4) times a day as needed for wheezing and shortness of breath. (Patient not taking: Reported on 01/24/2023) FAMILY HISTORY Problem Relation Age of Onset other (ASTHMATIC EMPHYSEMA [Other]) Maternal Grandmother other (high cholesterol [Other]) Maternal Grandmother other (alcholic [Other]) Maternal Grandfather Asthma Mother other (anemia [Other]) Mother other (scoliosis [Other]) Father other (degenerative disc disease [Other]) Father other (shermans disease [Other]) Father other (irritable boewl [Other]) Father Heart Paternal Grandmother Heart Paternal Grandfather Cancer Other great grand-parents Social History Tobacco Use Smoking status: Never Passive exposure: Yes Smokeless tobacco: Never Tobacco comments: parents smoke Review of Systems Constitutional: Negative for chills and fever. HENT: Negative for congestion and sore throat. Respiratory: Negative for cough and shortness of breath. Gastrointestinal: Negative for diarrhea and vomiting. Skin: Positive for rash. Objective BP 132/84 Pulse 65 Temp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 restraints at [facility] due to threatening to punch staff. 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 OBJECTIVE Recent lab results: Triglycerides are 227 (H), Cholesterol is 183 (H), VLDL-C is 45 (H) QTC: EKG performed at [facility], is illegible Mental Status Examination Appearance: appropriately dressed in home clothes Attitude toward examiner: Eye contact is appropriate. Behavior is cooperative. Mood: ok Affect: dysphoric Speech and Language: normal rate and rhythm Psychomotor: no agitation, retardation, tics, tremors, abnormal movements. Thought Process: linear, goal oriented Thought Content: Denies SI, HI, AVH Insight: fair Judgement: poor ASSESSMENT MARILEE MDD ADHD ODD Possible Autism spectrum disorder PLAN, Discussed with Dr. Raygoza Increase Zoloft to 50mg HS for mood, anxiety Continue Latuda 80mg HS for mood, anger Continue Lamictal 100mg BID for mood, anger PRNs: tylenol, melatonin 3mg Consent obtained from Rhea moreno [phone] Continue observation on unit for safety or self-harm Encourage participation in group and unit milieu Supportive Psychotherapy Discharge in coordination with social work Eze Herzog MD [facility], [id number] NotePsychosocial Narrative Summary Subject: Manny Mcnally Reason for admission: Pt presents to [facility] from home for evaluation and treatment of depression with suicidal ideation. Pt indicated that the depression recently was amplified since the suicide of a friend of his roughly 3 weeks ago. Pt was also recently discharged from [facility] for similar reasons and a week after discharging, stayed hoem from school for the day and locked himself in the bathroom. When confronted by his sister, pt threatened to cut himself on the arms and throat if she summoned police. Pt however was not able to express a mood change. Diagnosis and discharge plan: Major depressive disorder 3-5 days inpatient with outpatient followup.[facility] 06-14-2022 Emergency department Note* Lexis Dodson RN - 06/14/2022 3:48 AM EDT Pt left unit w/8100 staff and [facility] w/o incident. [facility]10-12-2022 Emergency department Note* Lexis Ddoson RN - 06/14/2022 3:48 AM EDT [facility] * Lexis Dodson RN - 06/14/2022 3:45 AM EDT 8100 and [facility] arrived to bring pt to 8100. * Lexis Dodson RN - 06/14/2022 3:33 AM EDT 8100 called for report. Report given to RINKU Mendez on 81. * Lexis Dodson RN - 06/14/2022 3:17 AM EDT Report received from Vicky Pretty RN * Kalina Verdin MA - 06/13/2022 8:21 PM EDT Patient given food tray * Zoe Guzman - 06/13/2022 7:06 PM EDT Report handed off to Kalina Saez * Zoe Guzman - 06/13/2022 7:03 PM EDT Food order placed * Doris Levi RN - 06/13/2022 5:24 PM EDT Pt sitting in chair. NAD. Respirations easy and even. * Doris Levi RN - 06/13/2022 4:32 PM EDT Patient sitting in corner of lobby. NAD. Respirations easy and even. Family member remains by pt side. * Doris Levi RN - 06/13/2022 4:02 PM EDT Alert and fully oriented 16 year old presenting with concern for suicidal ideation. The pt reports that he broke into the garage and was going to try and hang himself. The pt reports that his family member showed up so he wasn't able. The pt denies ever wrapping anything around his neck. The pt denies active intent to kill self in the hospital but reports he would try to kill himself if he was sent home. Denies HI. Established in counseling, has wrap-around services and takes medication for mental health concerns. Respirations easy and even. Denies recent illness. Cap refill <2 seconds. [facility]* Lexis Dodson RN - 06/14/2022 3:45 AM EDT [facility]10-12-2022 Emergency department Note* Lexis Dodson RN - 06/14/2022 3:33 AM EDT 8100 called for report. Report given to RINKU Mendez on 8100. [facility]10-12-2022 Emergency department Note* Lexis Dodson RN - 06/14/2022 3:17 AM EDT Report received from Vicky Pretty RN [facility]10-11-2022 Emergency department Note* Kalina Verdin MA - 06/13/2022 8:21 PM EDT Patient given food tray [facility]10-11-2022 Emergency department Note* Zoe Guzman - 06/13/2022 7:06 PM EDT Report handed off to Kalina Saez [facility]10-11-2022 Emergency department Note* Zoe Guzman - 06/13/2022 7:03 PM EDT Food order placed [facility]10-11-2022 Emergency department Note* Doris Levi RN - 06/13/2022 5:24 PM EDT Pt sitting in chair. NAD. Respirations easy and even. [facility]10-11-2022 Emergency department Note* Doris Levi RN - 06/13/2022 4:32 PM EDT Patient sitting in corner of lobby. NAD. Respirations easy and even. Family member remains by pt side. [facility]10-11-2022 Emergency department Triage note* Doris Levi RN - 06/13/2022 4:02 PM EDT Alert and fully oriented 16 year old presenting with concern for suicidal ideation. The pt reports that he broke into the garage and was going to try and hang himself. The pt reports that his family member showed up so he wasn't able. The pt denies ever wrapping anything around his neck. The pt denies active intent to kill self in the hospital but reports he would try to kill himself if he was sent home. Denies HI. Established in counseling, has wrap-around services and takes medication for mental health concerns. Respirations easy and even. Denies recent illness. Cap refill <2 seconds. [facility]01-09-2022 Hospital Discharge instructions Patient Education 09/11/2021 20:52:22 LONGTERM CLEARANCE Penitentiary Clearance You have been evaluated today for any illness or injury that may require special attention while you are in halfway. It appears that your condition is stable at this time. You have been medically cleared for halfway. Follow any special advice given regarding the care of any illness or injury present. Notify halfway personnel if there is any worsening of your symptoms or if new symptoms appear. When you are released from halfway, follow up with your own medical doctor or the clinic that you havebeen referred to. If you do not know where to go after you are released, contact us for referral information. [phone] [employer]. [address] [place] [address], [place] [address]. All rights reserved. This information is not intended as a substitute for professional medical care. Always follow yourhealthcare professional's instructions. Follow Up Care 09/11/2021 20:33:14 With:SALLIE SOLORZANO MD Address: [address] [place] [address] [address] [place] [address]- When:2-4 days [facility] + Plan note No data available for this section [facility] Evaluation noteNo assessment information available [facility] Work Phone: Evaluation note* Diagnosis Skin infection- Primary Unspecified local infection of skin and subcutaneous tissue [facility] this encounter [facility] Additional Instructions Follow-up with your counseling appointment as scheduled.[facility] Work Phone: Hospital Discharge instructions Additional Instructions Follow-up with your psychiatrist as instructed as well as the counseling center. [facility] Work Phone: Chief Complaint and Reason for Visit Chief Complaint MENTAL HEALTH suicidal SUICIDAL SI MENTAL HEALTH Chief Complaint suicidal SUICIDAL SI MENTAL HEALTH hand injury, mental health Chief Complaint suicidal Chief Complaint suicidal MENTAL HEALTH Chief Complaint MENTAL HEALTH cutting, mental health Summary Purpose Family History No Family History Records FoundNo Family History Records FoundNo Family History Records FoundNo Family History Records FoundNo Family History Records FoundNo Family History Records Found Advance Directives No Advanced Directives Records FoundNo Advanced Directives Records FoundNo Advanced Directives Records FoundNo Advanced Directives Records FoundNo Advanced Directives Records FoundNo Advanced Directives Records Found Additional Source Comments Goals (unrecognized section and content) Goals may be documented in a n alternate section (unrecognized sect ion and content) No Status Records FoundNo Status Records FoundNo Status Records FoundNo Status Records FoundNo Status Records FoundNo Status Records Found INFORMATION SOURCE (unrecogn ized section and content) DATE CREATED AUTHOR 12/07/[address] [facility] DATE CREATED AUTHOR AUTHOR'S ORGANIZ ATION 06/28/2022 [facility] DATE CREATED AUTHOR AUTHOR'S ORGANIZ ATION 10/19/2023 [facility] DATE CREATED AUTHOR AUTHOR'S ORGANIZ ATION 04/14/2024 [facility] DATE CREATED AUTHOR AUTHOR'S ORGANIZ ATION 08/23/2024 [facility] DATE CREATED AUTHOR AUTHOR'S ORGANIZ ATION 03/06/2025 [facility] Reason for Visit (unrecogniz ed section and content) Reason Comments PIRC Reason Comments P.I.R.C. Reason Comments Rash Rash on left leg x 5 days Scheduled Active and Recently Administ ered Medications (unrecognized section and content) Medication Order 06/12/2022 06/13/2022 06/14/2022 acetaminophen (TYLENOL) tablet 500 mg (COMPLETED) 500 mg, Oral, ONCE, 1 dose, On Sun06/13/22 at 2130 2131 (Given - Provider: Sonal Rolle, RINKU) escitalopram (LEXAPRO) tablet 5 mg 5 mg, Oral, EVERY EVENING, 90 doses, First dose on Sun06/13/22 at 2130, Last dose on Sun09/10/22 at 2100 2219 (Given - Provider: Sonal Rolle, RINKU) lamoTRIgine (LaMICtal) tablet 100 mg 100 mg, Oral, 2 TIMES DAILY, 180 doses, First dose on Sun06/13/22 at 2145, Last dose on Sun09/11/22 at 0900, Do not chew due to bitter taste 221 (Given - Provider: Sonal Rolle, RINKU) Scheduled Medication Order 08/04/2022 08/05/2022 08/06/2022 lamoTRIgine (LaMICtal) tablet 100 mg (COMPLETED) 100 mg, Oral, ONCE, 1 dose, On 08/06/22 at 2000, Do not chew due to bitter taste 2016 (Given - Provid er: Jocelyne Bryan RN) lurasidone (LATUDA) tablet 80 mg (COMPLETED) 80 mg, Oral, ONCE, 1 dose, On 08/06/22 at 1845, Take with food, greater than/equal to 350 calories. 185 (Given - Provid er: Rekha Hughes RN) sertraline (ZOLOFT) 50 MG tablet 50 mg (COMPLETED) 50 mg, Oral, ONCE, 1 dose, On 08/06/22 at 2000 2015 (Given - Provid er: Jocelyne Bryan RN) Care Teams (unrecognized sec tion and content) Sales Team Recruiter Relationship Specialty Start Date End Date Sallie Solorzano MD [address] [place] [id number] PCP - General Pediatrics 01/24/21 Sales Team Recruiter Relationship Specialty Start Date End Date Sallie Solorzano MD [address] [place] [id number] PCP - General Pediatrics 01/24/21 Team Status: Active Member Role Status Dates Dr. Mini Escoto MD Family Provider Active Dr. Sallie Solorzano MD Primary Care Provider Active Team Status: Inactive Member Role Status Dates Dr. Sallie Solorzano MD Primary Care Provider Active Dr. Fam Hodges MD Emergency Provider Active Team Status: Inactive Member Role Status Dates Dr. Sallie Solorzano MD Primary Care Provider Active Dr. Whitney Santo MD Emergency Provider Active Sales Team Recruiter Relationship Specialty Start Date End Date Sallie Solorzano [address] [place] [address] PCP - General Pediatrics 01/24/23 Sales Team Recruiter Relationship Specialty Start Date End Date Sallie Solorzano [address] [place] [address] PCP - General Pediatrics 01/24/23 Source Comments (unrecognize d section and content) In the event this informatio n is protected by the Federal Confidentiality of Alcohol and Drug Abuse Patient Records regulations: The Federal rules restrict any use of the information to criminally investigate or prosecute any alcohol or drug abuse patient.[facility] the event this information is protected by the Federal Confidentiality of Alcohol and Drug Abuse Patient Records regulations: The Federal rules restrict any use of the information to criminally investigate or prosecute any alcohol or drug abuse patient.[facility] FOR RECORDS PERTAINING TO PATIENTS WHO ARE OR HAVE BEEN ENROLLED IN A CHEMICAL DEPENDENCY/SUBSTANCEABUSE PROGRAM, SOME INFORMATION MAY BE OMITTED. This clinical summary was aggregated from multiple sources. Caution should be exercised in using it in the provision of clinical care. This summary normalizes information from multiple sources, and as a consequence, information in this document may materially change the coding, format and clinical context of patient data. In addition, data may be omitted in some cases. CLINICAL DECISIONS SHOULD BE BASED ON THE PRIMARY CLINICAL RECORDS. [facility], [facility]. provides no warranty or guarantee of the accuracy or completeness of information in this document.
--- OUTSIDE RECORDS SUMMARY | 2025-03-17 03:23 | XMS RPT_ITS | CCD ---
Author Organization [facility] Inform ion Partnership [facility] Care Team Providers Care Blueprint Reproducer Name Role Phone RASHAD COHEN, DR SALLIE Ayala Primary Care Physician [phone] SALLIE SOLORZANO Primary Care Unavailable DOT [place]S Consulting Unavailable DOT [place]UNAS Admitting Unavailable DOT [place]S Attending Unavailable Sallie Solorzano MD Primary Care Provider SELF, REFERRED Referring Unavailable RONIT RAYGOZA Attending Unavailable RONIT RAYGOZA Admitting Unavailable MAULIK, FABBY Admitting Unavailable MAULIK, FABBY Consulting Unavailable MAULIK, FABBY Attending Unavailable RASHAD RIZO SALLIE~[phone] [facility] Primary Care Unavailable RASHAD TODD, SALLIE~[phone] RASHAD Consulti ng Unavailable RASHAD, SALLIE Consulting Unavailable BRITTANY MAR APRN Consulting Unavailab brett RIZO, SALLIE~[phone] [facility] Primary Care Unavailable ISABELA LAM~[phone], ISABELA [place] Admitti ng Unavailable ISABELA LAM~[phone], ISABELA [place] Attendi ng Unavailable BRITTANY MAR APRN Consulting Unavailab brett RIZO, SALLIE~[phone] [facility] Primary Care Unavailable BRITTANY MAR Admitting Unavailable BRITTANY MAR Consulting Unavailable BRITTANY MAR Attending Unavailable BRITTANY MAR APRN Consulting Unavailab Mehnaz COHEN, TREVIN Consulting Unavailable BRETT COHEN, TREVIN Consulting Unavailable RASHAD RIZO, SALLIE~[phone] RASHAD Consulti ng Unavailable RASHAD, SALLIE Consulting Unavailable MAULIK, FABBY Consulting Unavailable MAULIK, FABBY Attending Unavailable RASHAD RIZO SALLIE~[phone] [facility] Primary Care Unavailable MAULIK, FABBY Admitting Unavailable RASHAD RIZO SALLIE~[phone] RASHAD Consulti ng Unavailable SALLIE SOLORZANO Consulting [...] Active Start: 12-26-2022 take 1 tablet by the [facility] twice daily lamoTRIgine (LAMICTAL) 100 mg tablet Take 100 mg by mouth twice daily. 12/26/2022 Active Start: 07-19-2022 lamoTRIgine (L aMICtal) tablet 100 mg Start: 04-03-2022 End: 06-14-2022 lamoTRIgine (LaMICtal) table t 100 mg Start: 01-08-2022 take 100 mg by mouth at bedtim e Lamotrigine Active 100 MG PO AT BEDTIME January 08, 2022 3:07pm Start: 12-03-2021 take 3 tablets by mo [facility] once daily Lamotrigine (Lamictal) 25 mg Tablet [...] mg Start: 07-19-2022 take 1 tablet by david th once [...] 07-01-2022 Episodic Other aftercare (3 sources) Other senior living (current) drug therapy; Translations: [OTH PRISON CURRENT DRUG THERAPY] Onset: 03-22-2023 Episodic Other [...] 01-02-2025 SERUM ETOH < 10.1 Normal <=10.0 [facility] Comment on above: Result Comment: This test is for medical purposes only. The legal definition of intoxication varies according to local law. Performed By: #### L 100.0100, L501.9100, L505.5000, L500.2500 #### [facility] [address] [place], [address] Basic Metabolic Profile (BMP )on 01-02-2025 BUN/CRE 11.6 RATIO Normal - [facility] Comment on above: Performed By: #### L 100.0100, L501.9100, L505.5000, L500.2500 #### [facility] [address] [place], [address] GFR/1.73 sq M.predicted among non-blacks MDRD (S/P/Bld) [Vol rate/Area] 135 mL/min/{1.73_m2} Normal >60 [facility] Comment on above: Result Comment: mL/m in/1.73m2 CKD-EPI Creatinine Equation (2020) Performed By: #### L 100.0100, L501.9100, L505.5000, L500.2500 #### [facility] [address] [place], [address] Urea nitrogen [Mass/Vol] 8 mg/dL Normal - [facility] Comment on above: Performed By: #### L 100.0100, L501.9100, L505.5000, L500.2500 #### [facility] [address] [place], [address] CBC W/Diff, Automatedon 05-0 -2024 Absolute Lymph 1.21 X10 3/uL Normal 0.83-4.51 [facility] Comment on above: Performed By: #### L 100.0100, L501.9100, L505.5000, L500.2500 #### [facility] [address] [place], [address] Absolute Neut 5.3 X10 3/uL Normal 2.0-7.7 [facility] Comment on above: Performed By: #### L 100.0100, L501.9100, L505.5000, L500.2500 #### [facility] [address] [place], [address] Basophils/100 WBC (Bld) 0.4 % Normal 0-1 [facility] Comment on above: Performed By: #### L 100.0100, L501.9100, L505.5000, L500.2500 #### [facility] [address] [place], [address] Eosinophils/100 WBC (Bld) 0.3 % Normal 0-5 [facility] Comment on above: Performed By: #### L 100.0100, L501.9100, L505.5000, L500.2500 #### [facility] [address] [place], [address] Erythrocyte distribution width (RBC) [Ratio] 12.5 % Normal 11.6-14.6 [facility] Comment on above: Performed By: #### L 100.0100, L501.9100, L505.5000, L500.2500 #### [facility] [address] [place], [address] Hematocrit (Bld) [Volume fraction] 45.7 % Normal 40-54 [facility] Comment on above: Performed By: #### L 100.0100, L501.9100, L505.5000, L500.2500 #### [facility] [address] [place], [address] Hemoglobin (Bld) [Mass/Vol] 16.2 g/dL Normal 13.0-16.5 [facility] Comment on above: Performed By: #### L 100.0100, L501.9100, L505.5000, L500.2500 #### [facility] [address] [place], [address] IG% 0.400 Normal 0.0-0.9 [facility] Comment on above: Result Comment: IG% - Immature Granulocytes (promyelocytes, myelocytes and metamyelocytes) > 1% indicates that a LEFT SHIFT is Present. Performed By: #### L 100.0100, L501.9100, L505.5000, L500.2500 #### [facility] [address] [facility] [place], [address] Lymphocytes/100 WBC (Bld) 16.1 % Low 19-41 [facility] Comment on above: Performed By: #### L 100.0100, L501.9100, L505.5000, L500.2500 #### [facility] [address] [place], [address] MCH (RBC) [Entitic mass] 29.1 pg Normal 27.0-32.0 [facility] Comment on above: Performed By: #### L 100.0100, L501.9100, L505.5000, L500.2500 #### [facility] [address] [place], [address] MCHC (RBC) [Mass/Vol] 35.4 g/dL Normal 32-36 [facility] Comment on above: Performed By: #### L 100.0100, L501.9100, L505.5000, L500.2500 #### [facility] [address] [place], [address] MCV (RBC) [Entitic vol] 82.2 fL Normal 80-94 [facility] Comment on above: Performed By: #### L 100.0100, L501.9100, L505.5000, L500.2500 #### [facility] [address] [place], [address] Monocytes/100 WBC (Bld) 11.7 % High 0-10 [facility] Comment on above: Performed By: #### L 100.0100, L501.9100, L505.5000, L500.2500 #### [facility] [address] [place], [address] Neutrophils/100 WBC (Bld) 71.1 % High 47-70 [facility] Comment on above: Performed By: #### L 100.0100, L501.9100, L505.5000, L500.2500 #### [facility] [address] [place], [address] Nucleated RBC (Bld) [#/Vol] 0 10*3/uL Normal 0-5 [facility] Comment on above: Performed By: #### L 100.0100, L501.9100, L505.5000, L500.2500 #### [facility] [address] [place], [address] Platelet mean volume (Bld) [Entitic vol] 10.2 fL Normal 6.2-12.0 [facility] Comment on above: Performed By: #### L 100.0100, L501.9100, L505.5000, L500.2500 #### [facility] [address] [place], [address] Platelets (Bld) [#/Vol] 249 10*3/uL Normal 150-450 [facility] Comment on above: Performed By: #### L 100.0100, L501.9100, L505.5000, L500.2500 #### [facility] [address] [place], [address] RBC (Bld) [#/Vol] 5.56 10*6/uL Normal 4.6-6.2 [facility] Comment on above: Performed By: #### L 100.0100, L501.9100, L505.5000, L500.2500 #### [facility] [address] [place], [address] RDW SD 37.6 fl Normal 35.1-43.9 [facility] Comment on above: Performed By: #### L 100.0100, L501.9100, L505.5000, L500.2500 #### [facility] [address] [place], [address] WBC (Bld) [#/Vol] 7.5 10*3/uL Normal 4.4-11.0 [facility] Comment on above: Performed By: #### L 100.0100, L501.9100, L505.5000, L500.2500 #### [facility] [address] [place], [address] Emergency Department Summary on 01-02-2025 Emergency Department Summary [facility] Medical Records Department [address] [place] [address] Emergency Department Summary 01/02/25 MR#: [id number] Acct: [id number] Name: MANNY MCNALLY Rep #: [id number] : 2005 19 From: Marek Booker DO [...] that he is just angry and frustrated. [facility] Medical History Oppositional defiant disorder High-functioning [...] follow commands knew that he was at [facility] year is 2024 Skin: Warm, dry, intact [...] working on placement. Patient was accepted to [facility] by Dr. Magallanes. Lab Data Labs: Laboratory Results - last 24 hr 01/02/25 01/02/25 17:42 17:50 WBC 7.5 RBC 5.56 Hgb 16.2 Hct 45.7 MCV 82.2 MCH 29.1 MCHC 35.4 RDW Std Deviation 37.6 RDW Coeff of Autumn 12.5 Plt Count 249 MPV 10.2 Immature Gran % (Auto) 0.400 Neut % (Auto) 71.1 H Lymph % (Auto) 16.1 L Nicholas % (Auto) 11.7 H Eos % (Auto) [...] Ur Oxycodon (more content not included)... Normal [facility] Urine Drug Screen (VISTA)on 01-02-2025 AMPHETAMINES Negative Normal <1000 ng/mL [facility] Comment on above: Performed By: #### L 100.0100, L501.9100, L505.5000, L500.2500 #### [facility] [address] [place], [address] BARBITIURATES Negative Normal < 200 ng/mL [facility] Comment on above: Performed By: #### L 100.0100, L501.9100, L505.5000, L500.2500 #### [facility] [address] [place], [address] BENZODIAZIPINE Negative Normal < 200 ng/mL [facility] Comment on above: Performed By: #### L 100.0100, L501.9100, L505.5000, L500.2500 #### [facility] [address] [place], [address] BUP Ur Drug Scr Negative Normal < 200 ng/mL [facility] Comment on above: Performed By: #### L 100.0100, L501.9100, L505.5000, L500.2500 #### [facility] [place], [place], [facility] COCAINE Negative Normal < 300 ng/mL [facility] Comment on above: Performed By: #### L 100.0100, L501.9100, L505.5000, L500.2500 #### [facility] [address] [place], [address] Fentanyl Negative Normal [facility] Comment on above: Performed By: #### L 100.0100, L501.9100, L505.5000, L500.2500 #### [facility] [place], [place], [facility] METHADONE Negative Normal < 300 ng/mL [facility] Comment on above: Performed By: #### L 100.0100, L501.9100, L505.5000, L500.2500 #### [facility] [address] [place], [address] OPIATES Negative Normal < 300 ng/mL [facility] Comment on above: Performed By: #### L 100.0100, L501.9100, L505.5000, L500.2500 #### [facility] [address] [place], [address] OXYCODONE Negative Normal < 100 ng/mL [facility] Comment on above: Performed By: #### L 100.0100, L501.9100, L505.5000, L500.2500 #### [facility] [address] [place], [address] PCP Negative Normal < 25 ng/mL [facility] Comment on above: Performed By: #### L 100.0100, L501.9100, L505.5000, L500.2500 #### [facility] [address] [place], [address] THC Positive Normal < 50 ng/mL [facility] Comment on above: Result Comment: If c onfirmation testing is needed, a separate order will be required to send out testing to the reference laboratory. Performed By: #### L 100.0100, L501.9100, L505.5000, L500.2500 #### [facility] [address] [place], [address] Progress Noteon 08-20-2024 Safety Attendant Authentication Interface Message Text Manny Mcnally is [...] (like other illegal drugs, pills, prescription or xvrz-epx-xmrdfvm medications, and things that you sniff, maravilla, [...] office Subjective HPI Comments: Dr. Willingham at [facility]- no medications right now--> anxiety, depression, mood stabilizer Lives by himself. History of SI's- friends and family are close if problems. No SI's today Stomach issues persistent- random vomiting diarrhea all the time stomach upset when eats Gets a lot of mucous drainage He is unaccompanied. 18 YEAR WELL CHILD Education: Manny (more content not included)... Intermediate [facility] Progress Noteon 08-14-2024 Safety Attendant Authentication Interface Message Text This is a [...] Level Low Acute Risk: History of past okxyou-qm-cj- or suicidal thoughts;Protective factors outweigh risk factors [...] Attempt Date: Actual Lethality/Medical Damage: Potential Lethality: [email or web address] VITAL SIGNS & MENTAL STATUS EXAM Wt Readings from Last 3 Encounters: 10/08/23 (!) 120.7 kg (>99%, Z= 2.71)* 01/22/23 (!) 136.2 kg (>99%, Z= 3.19)* 12/25/22 (!) 137 kg (>99%, Z= 3.22)* * Growth percentiles are based on [facility] (Boys, 2-20 Years) data. Temp Readings from [...] of Knowle (more content not included)... Normal [facility] Progress Noteon 04-25-2024 Safety Attendant Authentication Interface Message Text This is a [...] today. No safety concerns. Patient reports some OLIVER that we made a plan for. RISK ASSESSMENT Current Risk Level Low Acute Risk: History of past lfzglo-sd-dq- or suicidal thoughts;Protective factors outweigh risk factors [...] Attempt Date: Actual Lethality/Medical Damage: Potential Lethality: [email or web address] VITAL SIGNS & MENTAL STATUS EXAM Wt Readings from Last 3 Encounters: 10/08/23 (!) 120.7 kg (>99%, Z= 2.71)* 01/22/23 (!) 136.2 kg (>99%, Z= 3.19)* 12/25/22 (!) 137 kg (>99%, Z= 3.22)* * Growth percentiles are based on [facility] (Boys, 2-20 Years) data. Temp Readings from [...] no attendance (more content not included)... Normal [facility] CNOVon 04-13-2024 CNOV Office Visit ([facility] ) -------- MANNY MCNALLY ([id number]) 5 M Date Time Provider Department 04/13/24 2:00 PM CHRISTOS OROZCO [facility] During your visit today, we recorded the following information about you: Temperature Pulse Respiration Blood pressure 98.1 degrees 65/minute 16/minute 132/84 Weight 124.6 kg Christos Orozco PA 04/13/2024 2:11 PM Signed This note was created using [employer]. Subjective Manny Mcnally is a 18 year [...] for 7 (more content not included)... Normal [facility] Progress Noteon 02-12-2024 Safety Attendant Authentication Interface Message Text This is a [...] Level Low Acute Risk: History of past qfkfyl-vl-br- or suicidal thoughts;Protective factors outweigh risk factors [...] Attempt Date: Actual Lethality/Medical Damage: Potential Lethality: [email or web address] VITAL SIGNS & MENTAL STATUS EXAM [...] appears av (more content not included)... Normal [facility] Progress Noteon 12-27-2023 Safety Attendant Authentication Interface Message Text This is a telemedicine video visit requested by the patient that was performed with the patient's location at [facility] and the provider's location at home/office. [...] Level Low Acute Risk: History of past xdmwci-dn-fd- or suicidal thoughts;Protective factors outweigh risk factors [...] Attempt Date: Actual Lethality/Medical Damage: Potential Lethality: www.[email or web address][email or web address] VITAL SIGNS & MENTAL STATUS EXAM [...] therapy: Yes (more content not included)... Normal [facility] Progress Noteon 11-29-2023 Safety Attendant Authentication Interface Message Text This is a [...] Level Low Acute Risk: History of past lmgviu-dx-ag- or suicidal thoughts;Protective factors outweigh risk factors [...] Attempt Date: Actual Lethality/Medical Damage: Potential Lethality: [email or web address] VITAL SIGNS & MENTAL STATUS EXAM Wt Readings from Last 3 Encounters: 10/08/23 (!) 120.7 kg (>99%, Z= 2.71)* 01/22/23 (!) 136.2 kg (>99%, Z= 3.19)* 12/25/22 (!) 137 kg (>99%, Z= 3.22)* * Growth percentiles are based on [facility] (Boys, 2-20 Years) data. Temp Readings from [...] Patient denie (more content not included)... Normal [facility] Progress Noteon 09-20-2023 Safety Attendant Authentication Interface Message Text This is a telemedicine video visit requested by the patient/guardian that was performed with the patient's location at home and the provider's location at home or hospital office. CHILD PSYCHIATRY OUTPATIENT PROGRESS NOTE DATE OF SERVICE: 09/20/2023 PRESENT AT SESSION: Patient, guardian(s); Nurse; Half Section Ironer REASON FOR VISIT: Medication management Any information [...] and mood have improved - information from foot piece assembler. Patient can have headaches. Patient can have headaches throughout the day. No safety, appetite or sleep concerns. RISK ASSESSMENT Current Risk Level Low Acute Risk: History of past zdjpkj-gj-eo- or suicidal thoughts;Protective factors outweigh risk factors [...] Attempt Date: Actual Lethality/Medical Damage: Potential Lethality: [email or web address] VITAL SIGNS & MENTAL STATUS [...] denied ref (more content not included)... Normal [facility] CBC W Auto Differential pane l (Bld)on 08-15-2023 Basophils (Bld) [#/Vol] 0.04 10*3/uL Normal <=0.70 [facility] Comment on above: Performed By: #### 5 7021-8 #### [place] [address] Adult Parole Officer - Demetra CORTEZ [id number] Basophils/100 WBC (Bld) 0.5 % Normal <=2.0 [facility] Comment on above: Performed By: #### 5 7021-8 #### [place] [address] [facility]ole [facility] DIEGO [id number] Eosinophils (Bld) [#/Vol] 0.08 10*3/uL Normal <=0.70 [facility] Comment on above: Performed By: #### 5 7021-8 #### [facility] [address] [place] [address] Adult Parole Officer - [facility] RAFALIA [id number] Eosinophils/100 WBC (Bld) 1.0 % Normal <=10.0 [facility] Comment on above: Performed By: #### 5 7021-8 #### [place] [id number] Adult Parole Officer - Demetra LYLESIA [id number] Erythrocyte distribution width (RBC) [Entitic vol] 40.0 fL Normal 35.1-43.9 [facility] Comment on above: Performed By: #### 5 7021-8 #### [facility] [address] [place] [address] Adult Parole Officer - Demetra LYLESIA [id number] Hematocrit (Bld) [Volume fraction] 46.2 % Normal 40.0-54.0 [facility] Comment on above: Performed By: #### 5 7021-8 #### [place] [address] [place] [address] Adult Parole Officer - Demetra LYLESIA [id number] Hemoglobin (Bld) [Mass/Vol] 16.0 g/dL Normal 14.0-18.0 [facility] Comment on above: Performed By: #### 5 7021-8 #### [place] [address] [place] [address] Adult Parole Officer - Demetra Daniel CLIA [id number] Immature granulocytes (Bld) [#/Vol] 0.03 10*3/uL Normal <=0.10 [facility] Comment on above: Performed By: #### 5 7021-8 #### [place] [address] [place] [address] Adult Parole Officer - Demetra Daniel CLIA [id number] Immature granulocytes/100 WBC (Bld) 0.40 % Normal <=1.50 [facility] Comment on above: Performed By: #### 5 7021-8 #### [place] [address] [place] [address] Adult Parole Officer - Demetra Daniel CLIA [id number] Lymphocytes (Bld) [#/Vol] 2.14 10*3/uL Normal 1.20-3.40 [facility] Comment on above: Performed By: #### 5 7021-8 #### [place] [address] [place] [address] Adult Parole Officer - Demetra Daniel CLIA [id number] Lymphocytes/100 WBC (Bld) 26.7 % Normal 20.0-40.0 [facility] Comment on above: Performed By: #### 5 7021-8 #### [place] [address] [facility] [place] [address] Adult Parole Officer - Demetra CORTEZ [id number] MCH (RBC) [Entitic mass] 28.4 pg Normal 27.0-31.0 [facility] Comment on above: Performed By: #### 5 7021-8 #### [address] [place] [address] Adult Parole Officer - Demetra LYLESIA [id number] MCHC (RBC) [Mass/Vol] 34.6 g/dL Normal 32.0-36.0 [facility] Comment on above: Performed By: #### 5 7021-8 #### [address] [place] [address] Adult Parole Officer - Demetra LYLESIA [id number] MCV (RBC) [Entitic vol] 81.9 fL Normal 80.0-100.0 [facility] Comment on above: Performed By: #### 5 7021-8 #### [address] [place] [address] Adult Parole Officer - Demetra LYLESIA [id number] Monocytes (Bld) [#/Vol] 0.58 10*3/uL Normal 0.10-0.60 [facility] Comment on above: Performed By: #### 5 7021-8 #### [place] [address] [place] [address] Adult Parole Officer - Demetra LYLESIA [id number] Monocytes/100 WBC (Bld) 7.2 % Normal <=8.0 [facility] Comment on above: Performed By: #### 5 7021-8 #### [address] [place] [address] Adult Parole Officer - Demetra LYLESIA [id number] Neutrophils (Bld) [#/Vol] 5.14 10*3/uL Normal 1.40-6.50 [facility] Comment on above: Performed By: #### 5 7021-8 #### [facility] [address] [place] [address] Adult Parole Officer - Demetra LYLESIA [id number] Neutrophils/100 WBC (Bld) 64.2 % Normal 50.0-70.0 [facility] Comment on above: Performed By: #### 5 7021-8 #### [place] [address] [place] [address] Adult Parole Officer - Demetra LYLESIA [id number] Nucleated RBC (Bld) [#/Vol] 0.00 10*3/uL Normal <=0.10 [facility] Comment on above: Performed By: #### 5 7021-8 #### [place] [address] [place] [address] Adult Parole Officer - [employer]ra LYLESIA [id number] Platelet mean volume (Bld) [Entitic vol] 9.9 fL Normal 9.0-13.0 [facility] Comment on above: Performed By: #### 5 7021-8 #### [place] [address] [place] [address] Adult Parole Officer - Demetra LYLESIA [id number] Platelets (Bld) [#/Vol] 304 10*3/uL Normal 130-400 [facility] Comment on above: Performed By: #### 5 7021-8 #### [address] [place] [address] Adult Parole Officer - Demetra LYLESIA [id number] RBC (Bld) [#/Vol] 5.64 10*6/uL Normal 4.00-6.30 [facility] Comment on above: Performed By: #### 5 7021-8 #### [address] [place] [address] Adult Parole Officer - Demetra LYLESIA [id number] WBC (Bld) [#/Vol] 8.01 10*3/uL Normal 4.80-10.80 [facility] Comment on above: Performed By: #### 5 7021-8 #### [facility] [address] [place] [address] Adult Parole Officer - Demetra CORTEZ [id number] Comprehensive metabolic 2000 panelon 08-15-2023 Albumin [Mass/Vol] 4.6 g/dL Normal 3.4-5.0 [facility] Comment on above: Performed By: #### 1 1579-0 #### [facility] [address] [place] [address] Adult Parole Officer - Demetra CORTEZ [id number] #### 94415-9 #### [facility] [address] [place] [address] Adult Parole Officer - Demetra CORTEZ [id number] Performed for [facility] [address] [place] [address] ALP [Catalytic activity/Vol] 144 U/L High 50-136 [facility] Comment on above: Performed By: #### 1 1579-0 #### [facility] [address] [place] [address] Adult Parole Officer - Demetra CORTEZ [id number] #### 88494-1 #### [facility] [address] [place] [address] Adult Parole Officer - Demetra CORTEZ [id number] Performed for [facility] [address] [place] [address] ALT [Catalytic activity/Vol] 48 U/L Normal 16-63 [facility] Comment on above: Performed By: #### 1 1579-0 #### [facility] [address] [place] [address] Adult Parole Officer - Demetra CORTEZ [id number] #### 27670-6 #### [facility] [address] [place] [address] Adult Parole Officer - Demetra CORTEZ [id number] Performed for [facility] [address] [place] [address] Anion gap [Moles/Vol] 8.0 mmol/L Normal <=15.0 [facility] Comment on above: Performed By: #### 1 1579-0 #### [facility] [address] [place] [address] Adult Parole Officer - Demetra COTREZ [id number] #### 23610-7 #### [facility] [address] [place] [address] Adult Parole Officer - Demetra CORTEZ [id number] Performed for [facility] [address] [place] [address] AST [Catalytic activity/Vol] 25 U/L Normal 15-37 [facility] Comment on above: Performed By: #### 1 1579-0 #### [facility] [address] [place] [address] Adult Parole Officer - Demetra CORTEZ [id number] #### 75711-5 #### [facility] [address] [place] [address] Adult Parole Officer - Demetra CORTEZ [id number] Performed for [facility] [address] [place] [address] Bilirubin [Mass/Vol] 0.7 mg/dL Normal 0.2-1.0 [facility] Comment on above: Performed By: #### 1 1579-0 #### [facility] [address] [place] [address] Adult Parole Officer - Demetra CORTEZ [id number] #### 06927-0 #### [facility] [address] [place] [address] Adult Parole Officer - Demetra CORTEZ [id number] Performed for [facility] [address] [place] [address] Calcium [Mass/Vol] 9.7 mg/dL Normal 8.5-10.1 [facility] Comment on above: Performed By: #### 1 1579-0 #### [facility] [address] [place] [address] Adult Parole Officer - Demetra CORTEZ [id number] #### 90297-6 #### [facility] [address] [place] [address] Adult Parole Officer - Demetra CORTEZ [id number] Performed for [facility] [address] [place], [place] [address] Chloride [Moles/Vol] 104 mmol/L Normal 98-107 [facility] Comment on above: Performed By: #### 1 1579-0 #### [facility] [address] [place], [place] [address] Adult Parole Officer - Demetra CORTEZ [id number] #### 85955-2 #### [facility] [address] [place], [place] [address] Adult Parole Officer - Demetra CORTEZ [id number] Performed for [facility] [address] [place], [place] [address] CO2 [Moles/Vol] 28 mmol/L Normal 21-32 [facility] Comment on above: Performed By: #### 1 1579-0 #### [facility] [address] [place] [address] Adult Parole Officer - Demetra CORETZ [id number] #### 51551-2 #### [facility] [address] [place], [place] [address] Adult Parole Officer - Demetra CORTEZ [id number] Performed for [facility] [address] [place], [place] [address] Creatinine [Mass/Vol] 0.79 mg/dL Normal 0.67-1.17 [facility] Comment on above: Performed By: #### 1 1579-0 #### [facility] [address] [place], [place] [address] Adult Parole Officer - Demetra CORTEZ [id number] #### 08774-3 #### [facility] [address] [place] [address] Adult Parole Officer - Demetra CORTEZ [id number] Performed for [facility] [address] [place], [place] [address] GFR/1.73 sq M.predicted MDRD (S/P/Bld) [Vol rate/Area] Normal 59-N/A [facility] Comment on above: Performed By: #### 1 1579-0 #### [facility] [address] [place] [address] Adult Parole Officer - Demetra CORTEZ [id number] #### 14214-1 #### [facility] [address] [place] [address] Adult Parole Officer - Demetra CORTEZ [id number] Performed for [facility] [address] [place] [address] Glucose [Mass/Vol] 104 mg/dL Normal 74-106 [facility] Comment on above: Performed By: #### 1 1579-0 #### [facility] [address] [place] [address] Adult Parole Officer - Demetra CORTEZ [id number] #### 66048-3 #### [facility] [address] [place] [address] Adult Parole Officer - Demetra CORTEZ [id number] Performed for [facility] [address] [place] [address] HGFR GLOMERULAR FILTRATIO N RATE INTERPRETATION~The eGFR [...] months, with or without kidney damage.~ Normal [facility] Comment on above: Performed By: #### 1 1579-0 #### [facility] [address] [place] [address] Adult Parole Officer - Demetra CORTEZ [id number] #### 23966-3 #### [facility] [address] [place] [address] Adult Parole Officer - Demetra CORTEZ [id number] Performed for [facility] [address] [place], [place] [address] Potassium [Moles/Vol] 3.8 mmol/L Normal 3.5-5.1 [facility] Comment on above: Performed By: #### 1 1579-0 #### [facility] [address] [place] [address] Adult Parole Officer - Demetra CORTEZ [id number] #### 02123-4 #### [facility] [address] [place] [address] Adult Parole Officer - Demetra CORTEZ [id number] Performed for [facility] [address] [place] [address] Protein [Mass/Vol] 7.7 g/dL Normal 6.4-8.2 [facility] Comment on above: Performed By: #### 1 1579-0 #### [facility] [address] [place] [address] Adult Parole Officer - Demetra CORTEZ [id number] #### 95561-5 #### [facility] [address] [place] [address] Adult Parole Officer - Demetra CORTEZ [id number] Performed for [facility] [address] [place], [place] [address] Sodium [Moles/Vol] 140 mmol/L Normal 136-145 [facility] Comment on above: Performed By: #### 1 1579-0 #### [facility] [address] [place] [address] Adult Parole Officer - Demetra CORTEZ [id number] #### 43241-1 #### [facility] [address] [place] [address] Adult Parole Officer - Demetra COTREZ [id number] Performed for [facility] [address] [place] [address] Urea nitrogen [Mass/Vol] 10 mg/dL Normal 9-20 [facility] Comment on above: Performed By: #### 1 1579-0 #### [facility] [address] [place] [address] Adult Parole Officer - Demetra CORTEZ [id number] #### 99421-6 #### [facility] [address] [place] [address] Adult Parole Officer - Demetra CORTEZ [id number] Performed for [facility] [address] [place] [address] LITHIUMon 08-15-2023 [place] [Moles/Vol] 0.5 mmol/L Low 0.6-1.2 [facility] Comment on above: Performed By: #### 1 1579-0 #### [facility] [address] [place] [address] Adult Parole Officer - Demetra CORTEZ [id number] #### 02718-3 #### [facility] [address] [place] [address] Adult Parole Officer - Demetra CORTEZ [id number] Performed for [facility] [address] [place] [address] TSH DL <= 0.05 mIU/L Qnon TSH Qn 1.680 uIU/mL Normal 0.358-3.740 [facility] Comment on above: Performed By: #### 1 1579-0 #### [facility] [address] [place] [address] Adult Parole Officer - Demetra CORTEZ [id number] #### 20874-7 #### [facility] [address] [place] [address] Adult Parole Officer - Demetra CORTEZ [id number] Performed for [facility] [address] [place] [address] Urinalysis panel Auto (U)on 08-15-2023 Bacteria LM Ql (Urine sed) Normal TRACE [facility] Comment on above: Performed By: #### 5 0564-4 #### [facility] [address] [place] [address] Adult Parole Officer - Demetra CORTEZ [id number] Performed for [facility] [address] [place] [address] Bilirubin (U) [Mass/Vol] Negative Normal NEGATIVE [facility] Comment on above: Performed By: #### 5 0564-4 #### [facility] [address] [place] [address] Adult Parole Officer - Demetra CORTEZ [id number] Performed for [facility] [address] [place], [place] [address] Clarity (U) CLEAR Normal CLEAR [facility] Comment on above: Performed By: #### 5 0564-4 #### [facility] [address] [place] [address] Adult Parole Officer - Demetra LYLESIA [id number] Performed for [facility] [address] [place] [address] Color (U) YELLOW Normal YELLOW [facility] Comment on above: Performed By: #### 5 0564-4 #### [facility] [address] [place] [address] Adult Parole Officer - Demetra CORTEZ [id number] Performed for [facility] [address] [place] [address] Glucose Test strip (U) [Mass/Vol] Negative Normal NEGATIVE [facility] Comment on above: Performed By: #### 5 0564-4 #### [facility] [address] [place] [address] Adult Parole Officer - Demetra CORTEZ [id number] Performed for [facility] [address] [place] [address] HMICRO MICROSCOPIC Normal [facility] Comment on above: Performed By: #### 5 0564-4 #### [facility] [address] [place] [address] Adult Parole Officer - Demetra CORTEZ [id number] Performed for [facility] [address] [place] [address] Hyaline casts (Urine sed) [#/Area] Normal 0-8 [facility] Comment on above: Performed By: #### 5 0564-4 #### [facility] [address] [place], [place] [address] Adult Parole Officer - Demetra LYLESIA [id number] Performed for [facility] [address] [place], [place] [address] Ketones (U) [Mass/Vol] TRACE Abnormal NEGATIVE [facility] Comment on above: Performed By: #### 5 0564-4 #### [facility] [address] [place], [place] [address] Adult Parole Officer - Demetra CORTEZ [id number] Performed for [facility] [address] [place], [place] [address] Leukocyte esterase Qn (U) Negative Normal TRACE [facility] Comment on above: Performed By: #### 5 0564-4 #### [facility] [address] [place], [place] [address] Adult Parole Officer - Demetra CORTEZ [id number] Performed for [facility] [address] [place], [place] [address] Nitrite Ql (U) Negative Normal NEGATIVE [facility] Comment on above: Performed By: #### 5 0564-4 #### [facility] [address] [place], [place] [address] Adult Parole Officer - Demetra CORTEZ [id number] Performed for [facility] [address] [place], [place] [address] pH (U) 6.5 [pH] Normal 5.5-7.5 [facility] Comment on above: Performed By: #### 5 0564-4 #### [facility] [address] [place], [place] [address] Adult Parole Officer - Demetra CORTEZ [id number] Performed for [facility] [address] [place], [place] [address] Protein (U) [Mass/Vol] Negative Normal NEGATIVE [facility] Comment on above: Performed By: #### 5 0564-4 #### [facility] [address] [place], [place] [address] Adult Parole Officer - Demetra CORTEZ [id number] Performed for [facility] [address] [place], [place] [address] RBC (U) [#/Vol] Negative Normal NEGATIVE [facility] Comment on above: Performed By: #### 5 0564-4 #### [facility] [address] [place] [address] Adult Parole Officer - Demetra CORTEZ [id number] Performed for [facility] [address] [place], [place] [address] RBC LM.HPF (Urine sed) [#/Area] Normal 0-4 [facility] Comment on above: Performed By: #### 5 0564-4 #### [facility] [address] [place] [address] Adult Parole Officer - Demetra CORTEZ [id number] Performed for [facility] [address] [place] [address] Specific gravity (U) [Rel density] 1.023 Normal 1.010-1.035 [facility] Comment on above: Performed By: #### 5 0564-4 #### [facility] [address] [place] [address] Adult Parole Officer - Demetra CORTEZ [id number] Performed for [facility] [address] [place], [place] [address] SQUAMOUS EPITHELIALS Normal 0-5 [facility] Comment on above: Performed By: #### 5 0564-4 #### [facility] [address] [place] [address] Adult Parole Officer - Demetra CORTEZ [id number] Performed for [facility] [address] [place], [place] [address] Urobilinogen Qn (U) 0.2 {Trevon'U}/dL Normal <=1.0 [facility] Comment on above: Performed By: #### 5 0564-4 #### [facility] [address] [place] [address] Adult Parole Officer - Demetra CORTEZ [id number] Performed for [facility] [address] [place], [place] [address] WBC LM.HPF (Urine sed) [#/Area] Normal 0-5 [facility] Comment on above: Performed By: #### 5 0564-4 #### [facility] [address] [place] [address] Adult Parole Officer - Demetra CORTEZ [id number] Performed for [place] [address] [address] [address] LUMBAR WITH OBLIQUESon 05-30 LUMBAR WITH OBLIQUES EXAM: LUMBAR WITH OBLIQUES HISTORY: Low back pain COMPARISON: None. TECHNIQUE: 5 views FINDINGS: Satisfactory alignment. Maintained vertebral body heights and disc spaces. No acute fracture or subluxation. Unremarkable soft tissues. IMPRESSION: Unremarkable exam. Normal [facility] CBC W Auto Differential pane l (Bld)on 03-22-2023 Basophils (Bld) [#/Vol] 0.05 10*3/uL Normal <=0.70 [facility] Comment on above: Performed By: #### 5 7021-8 #### [address] [place] [address] Adult Parole Officer - Demetra CORTEZ [id number] Basophils/100 WBC (Bld) 0.7 % Normal <=2.0 [facility] Comment on above: Performed By: #### 5 7021-8 #### [address] [place] [address] Adult Parole Officer - Demetra LYLESIA [id number] Eosinophils (Bld) [#/Vol] 0.14 10*3/uL Normal <=0.70 [facility] Comment on above: Performed By: #### 5 7021-8 #### [address] [facility] [place] [address] Adult Parole Officer - Demetra LYLESIA [id number] Eosinophils/100 WBC (Bld) 2.0 % Normal <=10.0 [facility] Comment on above: Performed By: #### 5 7021-8 #### [address] [place] [address] Adult Parole Officer - Demetra CORTEZ [id number] Erythrocyte distribution width (RBC) [Entitic vol] 39.7 fL Normal 35.1-43.9 [facility] Comment on above: Performed By: #### 5 7021-8 #### [address] [place] [address] Adult Parole Officer - Demetra LYLESIA [id number] Hematocrit (Bld) [Volume fraction] 44.2 % Normal 40.0-54.0 [facility] Comment on above: Performed By: #### 5 7021-8 #### [address] [place] [address] Adult Parole Officer - Demetra LYLESIA [id number] Hemoglobin (Bld) [Mass/Vol] 14.7 g/dL Normal 14.0-18.0 [facility] Comment on above: Performed By: #### 5 7021-8 #### [address] [place] [address] Adult Parole Officer - Demetra LYLESIA [id number] Immature granulocytes (Bld) [#/Vol] 0.01 10*3/uL Normal <=0.10 [facility] Comment on above: Performed By: #### 5 7021-8 #### [address] [place] [address] Adult Parole Officer - Demetra LYLESIA [id number] Immature granulocytes/100 WBC (Bld) 0.10 % Normal <=1.50 [facility] Comment on above: Performed By: #### 5 7021-8 #### [address] [place] [address] Adult Parole Officer - Demetra LYLESIA [id number] Lymphocytes (Bld) [#/Vol] 2.27 10*3/uL Normal 1.20-3.40 [facility] Comment on above: Performed By: #### 5 7021-8 #### [address] [facility] [place] [address] Adult Parole Officer - Demetra LYLESIA [id number] Lymphocytes/100 WBC (Bld) 32.5 % Normal 20.0-40.0 [facility] Comment on above: Performed By: #### 5 7021-8 #### [address] [place] [address] Adult Parole Officer - Demetra Daniel CLIA [id number] MCH (RBC) [Entitic mass] 27.9 pg Normal 27.0-31.0 [facility] Comment on above: Performed By: #### 5 7021-8 #### [address] [place] [address] Adult Parole Officer - Demetra LYLESIA [id number] MCHC (RBC) [Mass/Vol] 33.3 g/dL Normal 32.0-36.0 [facility] Comment on above: Performed By: #### 5 7021-8 #### [address] [place] [address] Adult Parole Officer - Demetra LYLESIA [id number] MCV (RBC) [Entitic vol] 84.0 fL Normal 80.0-100.0 [facility] Comment on above: Performed By: #### 5 7021-8 #### [place] [address] Adult Parole Officer - Demetra LYLESIA [id number] Monocytes (Bld) [#/Vol] 0.69 10*3/uL High 0.10-0.60 [facility] Comment on above: Performed By: #### 5 7021-8 #### [address] [place] [address] Adult Parole Officer - Demetra LYLESIA [id number] Monocytes/100 WBC (Bld) 9.9 % High <=8.0 [facility] Comment on above: Performed By: #### 5 7021-8 #### [address] [place] [address] Adult Parole Officer - Demetra LYLESIA [id number] Neutrophils (Bld) [#/Vol] 3.83 10*3/uL Normal 1.40-6.50 [facility] Comment on above: Performed By: #### 5 7021-8 #### [address] [place] [address] Adult Parole Officer - Demetra Daniel CLIA [id number] Neutrophils/100 WBC (Bld) 54.8 % Normal 50.0-70.0 [facility] Comment on above: Performed By: #### 5 7021-8 #### [facility] [address] [place] [address] Adult Parole Officer - Demetra CORTEZ [id number] Nucleated RBC (Bld) [#/Vol] 0.00 10*3/uL Normal <=0.10 [facility] Comment on above: Performed By: #### 5 7021-8 #### [address] [place] [address] Adult Parole Officer - Demetra CORTEZ [id number] Platelet mean volume (Bld) [Entitic vol] 10.0 fL Normal 9.0-13.0 [facility] Comment on above: Performed By: #### 5 7021-8 #### [address] [place] [address] Adult Parole Officer - Demetra CORTEZ [id number] Platelets (Bld) [#/Vol] 317 10*3/uL Normal 130-400 [facility] Comment on above: Performed By: #### 5 7021-8 #### [address] [place] [address] Adult Parole Officer - Demetra CORTEZ [id number] RBC (Bld) [#/Vol] 5.26 10*6/uL Normal 4.00-6.30 [facility] Comment on above: Performed By: #### 5 7021-8 #### [address] [place] [address] Adult Parole Officer - Demetra CORTEZ [id number] WBC (Bld) [#/Vol] 6.99 10*3/uL Normal 4.80-10.80 [facility] Comment on above: Performed By: #### 5 7021-8 #### [address] [place] [address] Adult Parole Officer - Demetra CORTEZ [id number] Comprehensive metabolic 2000 panelon 03-22-2023 Albumin [Mass/Vol] 4.2 g/dL Normal 3.4-5.0 [facility] Comment on above: Performed By: #### 2 4323-8 #### [facility] [address] [place] [address] Adult Parole Officer - Demetra LYLESIA [id number] Performed for [facility] [address] [place] [address] #### 44550-7 #### [facility] [address] [place] [address] Adult Parole Officer - Demetra LYLESIA [id number] ALP [Catalytic activity/Vol] 127 U/L Normal 50-136 [facility] Comment on above: Performed By: #### 2 4323-8 #### [facility] [address] [place] [address] Adult Parole Officer - Demetra LYLESIA [id number] Performed for [facility] [address] [place] [address] #### 40765-5 #### [facility] [address] [place] [address] Adult Parole Officer - Demetra LYLESIA [id number] ALT [Catalytic activity/Vol] 114 U/L High 16-63 [facility] Comment on above: Performed By: #### 2 4323-8 #### [facility] [address] [place] [address] Adult Parole Officer - Demetra LYLESIA [id number] Performed for [facility] [address] [place] [address] #### 58706-4 #### [facility] [address] [place] [address] Adult Parole Officer - Demetra LYLESIA [id number] Anion gap [Moles/Vol] 6.1 mmol/L Normal <=15.0 [facility] Comment on above: Performed By: #### 2 4323-8 #### [facility] [address] [place] [address] Adult Parole Officer - Demetra LYLESIA [id number] Performed for [facility] [address] [place] [address] #### 50824-6 #### [facility] [address] [place] [address] Adult Parole Officer - Demetra LYLESIA [id number] AST [Catalytic activity/Vol] 51 U/L High 15-37 [facility] Comment on above: Performed By: #### 2 4323-8 #### [facility] [address] [place] [address] Adult Parole Officer - Demetra LYLESIA [id number] Performed for [facility] [address] [place] [address] #### 77947-2 #### [facility] [address] [place] [address] Adult Parole Officer - Demetra LYLESIA [id number] Bilirubin [Mass/Vol] 0.5 mg/dL Normal 0.2-1.0 [facility] Comment on above: Performed By: #### 2 4323-8 #### [facility] [address] [place] [address] Adult Parole Officer - Demetra LYLESIA [id number] Performed for [facility] [address] [place] [address] #### 64138-8 #### [facility] [address] [place] [address] Adult Parole Officer - Demetra CORTEZ [id number] Calcium [Mass/Vol] 8.9 mg/dL Normal 8.5-10.1 [facility] Comment on above: Performed By: #### 2 4323-8 #### [facility] [address] [place] [address] Adult Parole Officer - Demetra Daniel CLIA [id number] Performed for [facility] [address] [place] [address] #### 67372-6 #### [facility] [address] [place] [address] Adult Parole Officer - Demetra LYLESIA [id number] Chloride [Moles/Vol] 107 mmol/L Normal 98-107 [facility] Comment on above: Performed By: #### 2 4323-8 #### [facility] [address] [place] [address] Adult Parole Officer - Demetra CORTEZ [id number] Performed for [facility] [address] [place] [address] #### 41127-3 #### [facility] [address] [place] [address] Adult Parole Officer - Demetra CORTEZ [id number] CO2 [Moles/Vol] 27 mmol/L Normal 21-32 [facility] Comment on above: Performed By: #### 2 4323-8 #### [facility] [address] [place] [address] Adult Parole Officer - Demetra CORTEZ [id number] Performed for [facility] [address] [place] [address] #### 42709-1 #### [facility] [address] [place] [address] Adult Parole Officer - Demetra CORTEZ [id number] Creatinine [Mass/Vol] 0.68 mg/dL Normal 0.67-1.17 [facility] Comment on above: Performed By: #### 2 4323-8 #### [facility] [address] [place] [address] Adult Parole Officer - Demetra CORTEZ [id number] Performed for [facility] [address] [place] [address] #### 24647-6 #### [facility] [address] [place] [address] Adult Parole Officer - Demetra CORTEZ [id number] GFR/1.73 sq M.predicted MDRD (S/P/Bld) [Vol rate/Area] Normal 59-N/A [facility] Comment on above: Performed By: #### 2 4323-8 #### [facility] [address] [place] [address] Adult Parole Officer - Demetra CORTEZ [id number] Performed for [facility] [address] [place] [address] #### 65442-8 #### [facility] [address] [place] [address] Adult Parole Officer - Demetra Danielhood CORTEZ [id number] Glucose [Mass/Vol] 101 mg/dL Normal 74-106 [facility] Comment on above: Performed By: #### 2 4323-8 #### [facility] [address] [place] [address] Adult Parole Officer [facility] [id number] Performed for [facility] [address] [place] [address] #### 56463-7 #### [facility] [address] [place] [address] [facility] [id number] HGFR GLOMERULAR FILTRATIO N RATE INTERPRETATION~The eGFR [...] months, with or without kidney damage.~ Normal [facility] Comment on above: Performed By: #### 2 4323-8 #### [facility] [address] [place] [address] Adult Parole Officer - [facility] [id number] Performed for [facility] [address] [place] [address] #### 18008-1 #### [facility] [address] [place] [address] [facility] [id number] Potassium [Moles/Vol] 3.9 mmol/L Normal 3.5-5.1 [facility] Comment on above: Performed By: #### 2 4323-8 #### [facility] [address] [place] [address] Adult Parole Officer - Demetra CORTEZ [id number] Performed for [facility] [address] [place] [address] #### 73266-7 #### [facility] [address] [place] [address] Adult Parole Officer - Demetra CORTEZ [id number] Protein [Mass/Vol] 7.1 g/dL Normal 6.4-8.2 [facility] Comment on above: Performed By: #### 2 4323-8 #### [facility] [address] [place] [address] Adult Parole Officer - Demetra CORTEZ [id number] Performed for [facility] [address] [place] [address] #### 77145-2 #### [facility] [address] [place] [address] Adult Parole Officer - Demetra CORTEZ [id number] Sodium [Moles/Vol] 140 mmol/L Normal 136-145 [facility] Comment on above: Performed By: #### 2 4323-8 #### [facility] [address] [place] [address] Adult Parole Officer - Demetra CORTEZ [id number] Performed for [facility] [address] [place] [address] #### 40817-7 #### [facility] [address] [place] [address] Adult Parole Officer - Demetra CORTEZ [id number] Urea nitrogen [Mass/Vol] 10 mg/dL Normal 9-20 [facility] Comment on above: Performed By: #### 2 4323-8 #### [facility] [address] [place] [address] Adult Parole Officer - Demetra CORTEZ [id number] Performed for [facility] [address] [place] [address] #### 72170-9 #### [facility] [address] [place] [address] Adult Parole Officer - Demetra CORTEZ [id number] LITHIUMon 03-22-2023 [place] [Moles/Vol] 0.4 mmol/L Low 0.6-1.2 [facility] Comment on above: Performed By: #### 1 4334-7 #### [facility] [address] [place] [address] Adult Parole Officer - [facility] [id number] TSH DL <= 0.05 mIU/L Qnon TSH Qn 3.200 uIU/mL Normal 0.358-3.740 [facility] Comment on above: Performed By: #### 2 4323-8 #### [address] [place] [address] Adult Parole Officer - [facility] [id number] [address]formed for [address] [address] #### 950[address]-8 #### [address] [place] [address] Adult Parole Officer - [facility] [id number] Urinalysis panel Auto (U)on 03-22-2023 Bacteria LM.HPF (Urine sed) [#/Area] Negative Normal TRACE [facility] Comment on above: Performed By: #### 5 0564-4 #### [address] [place] [address] Adult Parole Officer - [facility] [id number] Bilirubin Ql (U) Negative Normal NEGATIVE [facility] Comment on above: Performed By: #### 5 0564-4 #### [place] [address] [place] [address] Adult Parole Officer - [facility] [id number] Clarity (U) CLEAR Normal CLEAR [facility] Comment on above: Performed By: #### 5 0564-4 #### [facility] [address] [place] [address] Adult Parole Officer - [facility] [id number] Color (U) DK YELLOW Abnormal YELLOW [facility] Comment on above: Performed By: #### 5 0564-4 #### [facility] [address] [place] [address] Adult Parole Officer - Demetra CORTEZ [id number] Glucose Ql (U) Negative Normal NEGATIVE [facility] Comment on above: Performed By: #### 5 0564-4 #### [facility] [address] [place] [address] Adult Parole Officer - Demetra CORTEZ [id number] Hemoglobin Ql (U) Negative Normal NEGATIVE [facility] Comment on above: Performed By: #### 5 0564-4 #### [facility] [address] [place] [address] Adult Parole Officer - Demetra CORTEZ [id number] HMICRO MICROSCOPIC Normal [facility] Comment on above: Performed By: #### 5 0564-4 #### [facility] [address] [place] [address] Adult Parole Officer - Demetra CORTEZ [id number] Hyaline casts (Urine sed) [#/Area] 0-8 Normal 0-8 [facility] Comment on above: Performed By: #### 5 0564-4 #### [facility] [address] [place] [address] Adult Parole Officer - Demetra CORTEZ [id number] KETONE 1+ Abnormal NEGATIVE [facility] Comment on above: Performed By: #### 5 0564-4 #### [facility] [address] [place] [address] Adult Parole Officer - Demetra CORTEZ [id number] Leukocyte esterase Test strip Ql (U) Negative Normal TRACE [facility] Comment on above: Performed By: #### 5 0564-4 #### [facility] [address] [place] [address] Adult Parole Officer - Demetra CORTEZ [id number] Nitrite Ql (U) Negative Normal NEGATIVE [facility] Comment on above: Performed By: #### 5 0564-4 #### [facility] [address] [place] [address] Adult Parole Officer - Demetra CORTEZ [id number] pH (U) 6.0 [pH] Normal 5.5-7.5 [facility] Comment on above: Performed By: #### 5 0564-4 #### [facility] [address] [facility] [place] [address] Adult Parole Officer - Demetra CORTEZ [id number] Protein Ql (U) TRACE Abnormal NEGATIVE [facility] Comment on above: Performed By: #### 5 0564-4 #### [facility] [address] [facility] [place] [address] Adult Parole Officer - Demetra CORTEZ [id number] RBC LM.HPF (Urine sed) [#/Area] 0-4 Normal 0-4 [facility] Comment on above: Performed By: #### 5 0564-4 #### [place] [address] Adult Parole Officer - Demetra CORTEZ [id number] Specific gravity (U) [Rel density] 1.034 Normal 1.010-1.035 [facility] Comment on above: Performed By: #### 5 0564-4 #### [address] Director - Demetra CORTEZ [id number] SQUAMOUS EPITHELIALS 0-5 Normal 0-5 [facility] Comment on above: Performed By: #### 5 0564-4 #### [facility] [address] [place] [address] Adult Parole Officer - Demetra CORTEZ [id number] Urobilinogen Qn (U) 1.0 {Trevon'U}/dL Normal <=1.0 [facility] Comment on above: Performed By: #### 5 0564-4 #### [facility] [address] [place] [address] Adult Parole Officer - Demetra CORTEZ [id number] WBC LM.HPF (Urine sed) [#/Area] 0-5 Normal 0-5 [facility] Comment on above: Performed By: #### 5 0564-4 #### [address], [place] [address] Adult Parole Officer - Demetra LYLESDARWIN [id number] XR Chest PA and Lateralon IMPRESSION: Left lower lobe opacity concerning for possible pneumonia. However, overlying soft tissues could result in a similar appearance. Correlation recommended. Truss Designer: MARTINA Transcribe Date/Time: Jan 24 2023 12:03P Dictated by : JUANITO MONK MD This examination was interpreted and the report reviewed and electronically signed by: JUANITO MONK MD on Jan 24 2023 12:05PM [facility] DIVISION OF RADIOLOGY * * *Final Report* [...] soft tissues: Unremarkable. DIVISION OF RADIOLOGY Provider, [facility] - 01/24/2023 * * *Final Report* * [...] result in a similar appearance. Correlation recommended. Truss Designer: PSCB Transcribe Date/Time: Jan 24 2023 12:03P Dictated by : JUANITO MONK MD This examination was interpreted and the report reviewed and electronically signed by: JUANITO MONK MD on Jan 24 2023 12:05PM EST [facility] Radiology Study observation (narrative) [facility] XR Chest PA and LateralOrder ed By: [facility] Provider on 01-24-2023 [facility] Absolute lymphocyte countOrd ered By: Dr. Santo on 12-26-2022 Lymphocytes Auto (Unsp spec) [#/Vol] 2.02 10*3/uL 0.83-4.51 [facility] Basophil percentageOrdered B y: Dr. Santo on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 Phone: Hematocrit Auto (Bld) [Volum e fraction]on 06-21-2022 Hematocrit (Bld) [Volume fraction] 45.9 % 36-47 [facility] Work Phone: Laboratory - Chemistry and C hemistry - challengeon 06-21-2022 CO2 [Moles/Vol] 24.0 mmol/L 21.0-32.0 [facility] Work Phone: Urea nitrogen/Creatinine [Mass ratio] 11.3 mg/mg 10-20 [facility] Work Phone: Laboratory - Drug toxicology on 06-21-2022 Amphetamines Ql (U) Negative <1000 ng/mL [facility] Work Phone: Benzodiazepines Ql (U) Negative < 200 ng/mL [facility] Work Phone: Cannabinoids Screen Ql (U) Negative < 50 ng/mL [facility] Work Phone: Cocaine Ql (U) Negative < 300 ng/mL [facility] Work Phone: Opiates Ql (U) Negative < 300 ng/mL [facility] Work Phone: Laboratory - Hematology and Cell countson 06-21-2022 Erythrocyte distribution width (RBC) [Entitic vol] 38.4 fL 35.1-43.9 [facility] Work Phone: Erythrocyte distribution width (RBC) [Ratio] 12.7 % 11.6-14.6 [facility] Work Phone: Immature granulocytes/100 WBC (Bld) 0.300 % 0.0-0.9 [facility] Work Phone: Comment on above: IG% - Immature Granu locytes (promyelocytes, myelocytes and metamyelocytes) > 1% indicates that a LEFT SHIFT is Present. MCH (RBC) [Entitic mass] 28.3 pg 25.0-35.0 [facility] Work Phone: Nucleated RBC/100 WBC (Bld) [Ratio] 0 % 0-5 [facility] Work Phone: MCHC Auto (RBC) [Mass/Vol]on 06-21-2022 MCHC (RBC) [Mass/Vol] 33.6 g/dL 32-36 [facility] Work Phone: No Panel Informationon 06-21 MDMA (Ecstasy) Screen Negative < 500 ng/mL [facility] Work Phone: Urine Barbiturates Screen Negative < 200 ng/mL [facility] Work Phone: Urine Drug Screen Comment [facility] Work Phone: Comment on above: CONFIRMATORY TESTING [...] Urine Methadone Screen Negative < 300 ng/mL [facility] Work Phone: Estimated Creatinine Clearance Calc 177.07 ml/min [facility] Work Phone: Estimated GFR (MDRD) [facility] Work Phone: Comment on above: Test not performedAf rican Eritrean GFR Calc Estimated GFR (MDRD) Non-Af [facility] Work Phone: Comment on above: Test not performedNo n- GFR Calc Ethyl Alcohol Level < 3.0 mg/dL [facility] Work Phone: Comment on above: The serum:whole bloo d ethanol ratio is approximately 1.14and varies slightly with hematocrit. Medical Alcohol reference interval and critical value innon-tolerant individuals; 50 - 100 Impairment 100 Intoxication 100 - 250 Severe Poisoning 250 - 400 Deep/possible fatal coma Platelets bldon 06-21-2022 Platelets (Bld) [#/Vol] 356 10*3/uL 150-450 [facility] Work Phone: Serum or plasma calcium rhona urement (mass/volume)on 06-21-2022 Calcium [Mass/Vol] 9.1 mg/dL 8.5-10.1 [facility] Work Phone: Serum or plasma creatinine m easurement (mass/volume)on 06-21-2022 Creatinine [Mass/Vol] 0.71 mg/dL 0.70-1.30 [facility] Work Phone: Comment on above: The validity of the calculated GFR & GFRAA in patients over 70 years has not been determined. Clinical correlation is essential. Serum or plasma urea nitroge n measurement (mass/volume)on 06-21-2022 Urea nitrogen [Mass/Vol] 8 mg/dL 7-18 [facility] Work Phone: Thin prep Papanicolaou smear with manual screeningon 06-21-2022 Thin prep Papanicolaou smear with manual screening 8 5-15 [facility] Work Phone: Urine phencyclidine (PCP) de tectionon 06-21-2022 Phencyclidine Ql (U) Negative < 25 ng/mL [facility] Work Phone: Drugs of Abuse with THC, uri [place] 06-13-2022 Amphetamines, Ur Negative Negative [facility] Comment on above: Threshold = 1000 ng/ mL Barbiturates, Ur Negative Negative [facility] Comment on above: Threshold = 200 ng/m L Benzodiazepines, Ur Negative Negative [facility] Comment on above: Threshold = 200 ng/m L Cocaine Negative Negative [facility] Comment on above: Threshold = 300 ng/m L Methadone, Ur Negative Negative [facility] Comment on above: Threshold = 300 ng/m L Opiates Negative Negative [facility] Comment on above: Threshold = 300 ng/m L PCP-Phencyclidine Negative Negative [facility] Comment on above: Threshold = 25 ng/mL THC,50,Urine Negative Negative [facility] Comment on above: This testing is inte nded for medical management and treatment only. Analysis performed using non-forensic procedures. Threshold = 50 ng/mL Reason for preventin g automatic release->Other Release to patient->Manual release only [facility] Absolute lymphocyte counton 01-08-2022 Lymphocytes Auto (Unsp spec) [#/Vol] 2.07 10*3/uL 0.83-4.51 [facility] Work Phone: Basophil percentageon 2021 Basophils/100 WBC (Bld) 0.5 % 0-1 [facility] Work Phone: Chloride [Moles/Vol] 109 mmol/L 98-107 [facility] Work Phone: Eosinophils/100 WBC (Bld) 1.1 % 0-3 [facility] Work Phone: Glucose [Mass/Vol] 91 mg/dL 74-106 [facility] Work Phone: Neutrophils (Bld) [#/Vol] 4.7 10*3/uL 2.0-7.7 [facility] Work Phone: Neutrophils/100 WBC (Bld) 63.0 % 34-64 [facility] Work Phone: Potassium [Moles/Vol] 3.7 mmol/L 3.5-5.1 [facility] Work Phone: Sodium [Moles/Vol] 141 mmol/L 136-145 [facility] Work Phone: WBC (Bld) [#/Vol] 7.4 10*3/uL 4.5-13.0 [facility] Work Phone: Blood erythrocytes count (nu mber/volume)on 01-08-2022 RBC (Bld) [#/Vol] 5.22 10*6/uL 4.5-5.1 [facility] Work Phone: Blood hemoglobin measurement (mass/volume)on 01-08-2022 Hemoglobin (Bld) [Mass/Vol] 14.6 g/dL 13.0-16.5 [facility] Work Phone: Blood lymphocytes/100 leukoc yteson 01-08-2022 Lymphocytes/100 WBC (Bld) 27.8 % 25-45 [facility] Work Phone: Blood monocytes/100 leukocyt eson 01-08-2022 Monocytes/100 WBC (Bld) 7.3 % 3-6 [facility] Work Phone: Blood platelet mean volumeon 01-08-2022 Platelet mean volume (Bld) [Entitic vol] 10.1 fL 6.2-12.0 [facility] Work Phone: Determination of erythrocyte mean corpuscular volume (MCV)on 01-08-2022 MCV (RBC) [Entitic vol] 84.3 fL 78-96 [facility] Work Phone: Hematocrit Auto (Bld) [Volum e fraction]on 01-08-2022 Hematocrit (Bld) [Volume fraction] 44.0 % 36-47 [facility] Work Phone: Laboratory - Chemistry and C hemistry - challengeon 01-08-2022 CO2 [Moles/Vol] 26.0 mmol/L 21.0-32.0 [facility] Work Phone: Urea nitrogen/Creatinine [Mass ratio] 16.9 mg/mg 10-20 [facility] Work Phone: Laboratory - Drug toxicology on 01-08-2022 Amphetamines Ql (U) Negative [facility] Work Phone: Benzodiazepines Ql (U) Negative [facility] Work Phone: Cannabinoids Screen Ql (U) Negative [facility] Work Phone: Cocaine Ql (U) Negative [facility] Work Phone: Opiates Ql (U) Negative [facility] Work Phone: Laboratory - Hematology and Cell countson 01-08-2022 Erythrocyte distribution width (RBC) [Entitic vol] 38.3 fL 35.1-43.9 [facility] Work Phone: Erythrocyte distribution width (RBC) [Ratio] 12.4 % 11.6-14.6 [facility] Work Phone: Immature granulocytes/100 WBC (Bld) 0.300 % 0.0-0.9 [facility] Work Phone: Comment on above: IG% - Immature Granu locytes (promyelocytes, myelocytes and metamyelocytes) > 1% indicates that a LEFT SHIFT is Present. MCH (RBC) [Entitic mass] 28.0 pg 25.0-35.0 [facility] Work Phone: Nucleated RBC/100 WBC (Bld) [Ratio] 0 % 0-5 [facility] Work Phone: MCHC Auto (RBC) [Mass/Vol]on 01-08-2022 MCHC (RBC) [Mass/Vol] 33.2 g/dL 32-36 [facility] Work Phone: No Panel Informationon 01-08 MDMA (Ecstasy) Screen Negative [facility] Work Phone: Urine Barbiturates Screen Negative [facility] Work Phone: Urine Drug Screen Comment [facility] Work Phone: Comment on above: CONFIRMATORY TESTING [...] USE TESTMNEMONIC: [facility] Urine Methadone Screen Negative [facility] Work Phone: Estimated Creatinine Clearance Calc 163.28 ml/min [facility] Work Phone: Estimated GFR (MDRD) [facility] Work Phone: Comment on above: Test not performedAf rican Eritrean GFR Calc Estimated GFR (MDRD) Non-Af [facility] Work Phone: Comment on above: Test not performedNo n- GFR Calc Ethyl Alcohol Level < 3.0 mg/dL [facility] Work Phone: Comment on above: The serum:whole bloo d ethanol ratio is approximately 1.14and varies slightly with hematocrit. Medical Alcohol reference interval and critical value innon-tolerant individuals; 50 - 100 Impairment 100 Intoxication 100 - 250 Severe Poisoning 250 - 400 Deep/possible fatal coma Platelets bldon 01-08-2022 Platelets (Bld) [#/Vol] 304 10*3/uL 150-450 [facility] Work Phone: Serum or plasma calcium rhona urement (mass/volume)on 01-08-2022 Calcium [Mass/Vol] 9.3 mg/dL 8.5-10.1 [facility] Work Phone: Serum or plasma creatinine m easurement (mass/volume)on 01-08-2022 Creatinine [Mass/Vol] 0.77 mg/dL 0.70-1.30 [facility] Work Phone: Comment on above: The validity of the calculated GFR & GFRAA in patients over 70 years has not been determined. Clinical correlation is essential. Serum or plasma urea nitroge n measurement (mass/volume)on 01-08-2022 Urea nitrogen [Mass/Vol] 13 mg/dL 7-18 [facility] Work Phone: Thin prep Papanicolaou smear with manual screeningon 01-08-2022 Thin prep Papanicolaou smear with manual screening 6 5-15 [facility] Work Phone: Urine phencyclidine (PCP) de tectionon 01-08-2022 Phencyclidine Ql (U) Negative [facility] Work Phone: Absolute lymphocyte counton 12-03-2021 Lymphocytes Auto (Unsp spec) [#/Vol] 2.09 10*3/uL 0.83-4.51 [facility] Work Phone: Basophil percentageon 2021 Basophils/100 WBC (Bld) 0.5 % 0-1 [facility] Work Phone: Chloride [Moles/Vol] 109 mmol/L 98-107 [facility] Work Phone: Eosinophils/100 WBC (Bld) 0.9 % 0-3 [facility] Work Phone: [phone] Glucose [Mass/Vol] 97 mg/dL 74-106 [facility] Work Phone: Neutrophils (Bld) [#/Vol] 6.3 10*3/uL 2.0-7.7 [facility] Work Phone: Neutrophils/100 WBC (Bld) 67.6 % 34-64 [facility] Work Phone: Potassium [Moles/Vol] 3.7 mmol/L 3.5-5.1 [facility] Work Phone: Sodium [Moles/Vol] 143 mmol/L 136-145 [facility] Work Phone: WBC (Bld) [#/Vol] 9.3 10*3/uL 4.5-13.0 [facility] Work Phone: Blood erythrocytes count (nu mber/volume)on 12-03-2021 RBC (Bld) [#/Vol] 5.09 10*6/uL 4.5-5.1 [facility] Work Phone: Blood hemoglobin measurement (mass/volume)on 12-03-2021 Hemoglobin (Bld) [Mass/Vol] 14.6 g/dL 13.0-16.5 [facility] Work Phone: Blood lymphocytes/100 leukoc yteson 12-03-2021 Lymphocytes/100 WBC (Bld) 22.5 % 25-45 [facility] Work Phone: Blood monocytes/100 leukocyt eson 12-03-2021 Monocytes/100 WBC (Bld) 8.2 % 3-6 [facility] Work Phone: Blood platelet mean volumeon 12-03-2021 Platelet mean volume (Bld) [Entitic vol] 10.3 fL 6.2-12.0 [facility] Work Phone: Determination of erythrocyte mean corpuscular volume (MCV)on 12-03-2021 MCV (RBC) [Entitic vol] 83.5 fL 78-96 [facility] Work Phone: Hematocrit Auto (Bld) [Volum e fraction]on 12-03-2021 Hematocrit (Bld) [Volume fraction] 42.5 % 36-47 [facility] Work Phone: Laboratory - Chemistry and C hemistry - challengeon 12-03-2021 CO2 [Moles/Vol] 29.0 mmol/L 21.0-32.0 [facility] Work Phone: Urea nitrogen/Creatinine [Mass ratio] 18.9 mg/mg 10-20 [facility] Work Phone: Laboratory - Drug toxicology on 12-03-2021 Amphetamines Ql (U) Negative [facility] Work Phone: Benzodiazepines Ql (U) Negative [facility] Work Phone: Cannabinoids Screen Ql (U) Negative [facility] Work Phone: Cocaine Ql (U) Negative [facility] Work Phone: Opiates Ql (U) Negative [facility] Work Phone: Laboratory - Hematology and Cell countson 12-03-2021 Erythrocyte distribution width (RBC) [Entitic vol] 38.4 fL 35.1-43.9 [facility] Work Phone: Erythrocyte distribution width (RBC) [Ratio] 12.6 % 11.6-14.6 [facility] Work Phone: Immature granulocytes/100 WBC (Bld) 0.300 % 0.0-0.9 [facility] Work Phone: Comment on above: IG% - Immature Granu locytes (promyelocytes, myelocytes and metamyelocytes) > 1% indicates that a LEFT SHIFT is Present. MCH (RBC) [Entitic mass] 28.7 pg 25.0-35.0 [facility] Work Phone: Nucleated RBC/100 WBC (Bld) [Ratio] 0 % 0-5 [facility] Work Phone: MCHC Auto (RBC) [Mass/Vol]on 12-03-2021 MCHC (RBC) [Mass/Vol] 34.4 g/dL 32-36 [facility] Work Phone: No Panel Informationon 12-03 MDMA (Ecstasy) Screen Negative [facility] Work Phone: Urine Barbiturates Screen Negative [facility] Work Phone: Urine Drug Screen Comment [facility] Work Phone: Comment on above: CONFIRMATORY TESTING [...] USE TESTMNEMONIC: [facility] Urine Methadone Screen Negative [facility] Work Phone: Estimated Creatinine Clearance Calc 155.37 ml/min [facility] Work Phone: Estimated GFR (MDRD) [facility] Work Phone: Comment on above: Test not performedAf rican Eritrean GFR Calc Estimated GFR (MDRD) Non-Af [facility] Work Phone: Comment on above: Test not performedNo n- GFR Calc Ethyl Alcohol Level < 3.0 mg/dL [facility] Work Phone: Comment on above: The serum:whole bloo d ethanol ratio is approximately 1.14and varies slightly with hematocrit. Medical Alcohol reference interval and critical value innon-tolerant individuals; 50 - 100 Impairment 100 Intoxication 100 - 250 Severe Poisoning 250 - 400 Deep/possible fatal coma Platelets bldon 12-03-2021 Platelets (Bld) [#/Vol] 323 10*3/uL 150-450 [facility] Work Phone: Serum or plasma calcium rhona urement (mass/volume)on 12-03-2021 Calcium [Mass/Vol] 9.0 mg/dL 8.5-10.1 [facility] Work Phone: Serum or plasma creatinine m easurement (mass/volume)on 12-03-2021 Creatinine [Mass/Vol] 0.79 mg/dL 0.50-0.80 [facility] Work Phone: Serum or plasma urea nitroge n measurement (mass/volume)on 12-03-2021 Urea nitrogen [Mass/Vol] 15 mg/dL 7-18 [facility] Work Phone: Thin prep Papanicolaou smear with manual screeningon 12-03-2021 Thin prep Papanicolaou smear with manual screening 5 5-15 [facility] Work Phone: Urine phencyclidine (PCP) de tectionon 12-03-2021 Phencyclidine Ql (U) Negative [facility] Work Phone: COVID-19, MOLECULARon 2021 SARS-CoV-2 (COVID-19) RNA LEIGHA+probe Ql (Unsp spec) Not detected Normal Not Detected [facility] Comment on above: Order Comment: This test [...] at the following links: For Healthcare Providers: https://www.fda.gov/media/979213/download For Patients: https://www.fda.gov/media/985490/download Performed By: #### L [id number] #### [facility] [address], [place] [address] Evan Perkins M.D. [id number] Absolute lymphocyte counton 11-25-2021 Lymphocytes Auto (Unsp spec) [#/Vol] 2.14 10*3/uL 0.83-4.51 [facility] Work Phone: Basophil percentageon 2021 Basophils/100 WBC (Bld) 0.5 % 0-1 [facility] Work Phone: Chloride [Moles/Vol] 108 mmol/L 98-107 [facility] Work [facility]: [phone] Eosinophils/100 WBC (Bld) 0.5 % 0-3 [facility] Work Phone: [phone] Glucose [Mass/Vol] 95 mg/dL 74-106 [facility] Work Phone: Neutrophils (Bld) [#/Vol] 4.6 10*3/uL 2.0-7.7 [facility] Work Phone: [phone] Neutrophils/100 WBC (Bld) 61.0 % 34-64 [facility] Work Phone: Potassium [Moles/Vol] 4.3 mmol/L 3.5-5.1 [facility] Work Phone: Sodium [Moles/Vol] 141 mmol/L 136-145 [facility] Work Phone: WBC (Bld) [#/Vol] 7.5 10*3/uL 4.5-13.0 [facility] Work Phone: Blood erythrocytes count (nu mber/volume)on 11-25-2021 RBC (Bld) [#/Vol] 5.06 10*6/uL 4.5-5.1 [facility] Work [facility]: Blood hemoglobin measurement (mass/volume)on 11-25-2021 Hemoglobin (Bld) [Mass/Vol] 14.5 g/dL 13.0-16.5 [facility] Work Phone: [phone] Blood lymphocytes/100 leukoc yteson 11-25-2021 Lymphocytes/100 WBC (Bld) 28.5 % 25-45 [facility] Work Phone: [phone] Blood monocytes/100 leukocyt eson 11-25-2021 Monocytes/100 WBC (Bld) 9.0 % 3-6 [facility] Work Phone: Blood platelet mean volumeon 11-25-2021 Platelet mean volume (Bld) [Entitic vol] 9.8 fL 6.2-12.0 [facility] Work Phone: Determination of erythrocyte mean corpuscular volume (MCV)on 11-25-2021 MCV (RBC) [Entitic vol] 86.0 fL 78-96 [facility] Work Phone: Hematocrit Auto (Bld) [Volum e fraction]on 11-25-2021 Hematocrit (Bld) [Volume fraction] 43.5 % 36-47 [facility] Work Phone: Laboratory - Chemistry and C hemistry - challengeon 11-25-2021 CO2 [Moles/Vol] 29.0 mmol/L 21.0-32.0 [facility] Work Phone: Urea nitrogen/Creatinine [Mass ratio] 19.8 mg/mg 10-20 [facility] Work Phone: Laboratory - Drug toxicology on 11-25-2021 Amphetamines Ql (U) Negative [facility] Work Phone: Benzodiazepines Ql (U) Negative [facility] Work Phone: Cannabinoids Screen Ql (U) Negative [facility] Work Phone: Cocaine Ql (U) Negative [facility] Work Phone: Opiates Ql (U) Negative [facility] Work Phone: Laboratory - Hematology and Cell countson 11-25-2021 Erythrocyte distribution width (RBC) [Entitic vol] 40.2 fL 35.1-43.9 [facility] Work Phone: Erythrocyte distribution width (RBC) [Ratio] 12.9 % 11.6-14.6 [facility] Work Phone: Immature granulocytes/100 WBC (Bld) 0.500 % 0.0-0.9 [facility] Work Phone: Comment on above: IG% - Immature Granu locytes (promyelocytes, myelocytes and metamyelocytes) > 1% indicates that a LEFT SHIFT is Present. MCH (RBC) [Entitic mass] 28.7 pg 25.0-35.0 [facility] Work Phone: Nucleated RBC/100 WBC (Bld) [Ratio] 0 % 0-5 [facility] Work Phone: MCHC Auto (RBC) [Mass/Vol]on 11-25-2021 MCHC (RBC) [Mass/Vol] 33.3 g/dL 32-36 [facility] Work Phone: No Panel Informationon 11-25 MDMA (Ecstasy) Screen Negative [facility] Work Phone: Urine Barbiturates Screen Negative [facility] Work Phone: Urine Drug Screen Comment [facility] Work Phone: Comment on above: CONFIRMATORY TESTING [...] USE TESTMNEMONIC: [facility] Urine Methadone Screen Negative [facility] Work Phone: Estimated Creatinine Clearance Calc 161.50 ml/min [facility] Work Phone: Estimated GFR (MDRD) [facility] Work Phone: Comment on above: Test not performedAf rican Eritrean GFR Calc Estimated GFR (MDRD) Non-Af [facility] Work Phone: Comment on above: Test not performedNo n- GFR Calc Ethyl Alcohol Level < 3.0 mg/dL [facility] Work Phone: Comment on above: The serum:whole bloo d ethanol ratio is approximately 1.14and varies slightly with hematocrit. Medical Alcohol reference interval and critical value innon-tolerant individuals; 50 - 100 Impairment 100 Intoxication 100 - 250 Severe Poisoning 250 - 400 Deep/possible fatal coma Platelets bldon 11-25-2021 Platelets (Bld) [#/Vol] 344 10*3/uL 150-450 [facility] Work Phone: Serum or plasma calcium rhona urement (mass/volume)on 11-25-2021 Calcium [Mass/Vol] 9.4 mg/dL 8.5-10.1 [facility] Work Phone: Serum or plasma creatinine m easurement (mass/volume)on 11-25-2021 Creatinine [Mass/Vol] 0.76 mg/dL 0.50-0.80 [facility] Work Phone: Serum or plasma urea nitroge n measurement (mass/volume)on 11-25-2021 Urea nitrogen [Mass/Vol] 15 mg/dL 7-18 [facility] Work Phone: Thin prep Papanicolaou smear with manual screeningon 11-25-2021 Thin prep Papanicolaou smear with manual screening 4 5-15 [facility] Work Phone: Urine phencyclidine (PCP) de tectionon 11-25-2021 Phencyclidine Ql (U) Negative [facility] Work Phone: Absolute lymphocyte counton 10-24-2021 Lymphocytes Auto (Unsp spec) [#/Vol] 1.63 10*3/uL 0.83-4.51 [facility] Work Phone: Basophil percentageon 2021 Basophils/100 WBC (Bld) 0.5 % 0-1 [facility] Work Phone: Chloride [Moles/Vol] 107 mmol/L 98-107 [facility] Work Phone: Eosinophils/100 WBC (Bld) 0.5 % 0-3 [facility] Work Phone: [phone] Glucose [Mass/Vol] 94 mg/dL 74-106 [facility] Work Phone: Neutrophils (Bld) [#/Vol] 6.0 10*3/uL 2.0-7.7 [facility] Work Phone: Neutrophils/100 WBC (Bld) 71.0 % 34-64 [facility] Work Phone: Potassium [Moles/Vol] 4.0 mmol/L 3.5-5.1 [facility] Work Phone: Sodium [Moles/Vol] 138 mmol/L 136-145 [facility] Work Phone: WBC (Bld) [#/Vol] 8.4 10*3/uL 4.5-13.0 [facility] Work Phone: Blood erythrocytes count (nu mber/volume)on 10-24-2021 RBC (Bld) [#/Vol] 5.45 10*6/uL 4.5-5.1 [facility] Work Phone: Blood hemoglobin measurement (mass/volume)on 10-24-2021 Hemoglobin (Bld) [Mass/Vol] 15.7 g/dL 13.0-16.5 [facility] Work Phone: Blood lymphocytes/100 leukoc yteson 10-24-2021 Lymphocytes/100 WBC (Bld) 19.3 % 25-45 [facility] Work Phone: [phone] Blood monocytes/100 leukocyt eson 10-24-2021 Monocytes/100 WBC (Bld) 8.3 % 3-6 [facility] Work Phone: Blood platelet mean volumeon 10-24-2021 Platelet mean volume (Bld) [Entitic vol] 10.3 fL 6.2-12.0 [facility] Work Phone: Determination of erythrocyte mean corpuscular volume (MCV)on 10-24-2021 MCV (RBC) [Entitic vol] 84.4 fL 78-96 [facility] Work Phone: Hematocrit Auto (Bld) [Volum e fraction]on 10-24-2021 Hematocrit (Bld) [Volume fraction] 46.0 % 36-47 [facility] Work Phone: Laboratory - Chemistry and C hemistry - challengeon 10-24-2021 CO2 [Moles/Vol] 27.0 mmol/L 21.0-32.0 [facility] Work Phone: Urea nitrogen/Creatinine [Mass ratio] 10.5 mg/mg 10-20 [facility] Work Phone: Laboratory - Drug toxicology on 10-24-2021 Amphetamines Ql (U) Positive [facility] Work Phone: Benzodiazepines Ql (U) Negative [facility] Work Phone: Cannabinoids Screen Ql (U) Negative [facility] Work Phone: Cocaine Ql (U) Negative [facility] Work Phone: Opiates Ql (U) Negative [facility] Work Phone: Laboratory - Hematology and Cell countson 10-24-2021 Erythrocyte distribution width (RBC) [Entitic vol] 38.8 fL 35.1-43.9 [facility] Work Phone: Erythrocyte distribution width (RBC) [Ratio] 12.6 % 11.6-14.6 [facility] Work Phone: Immature granulocytes/100 WBC (Bld) 0.400 % 0.0-0.9 [facility] Work Phone: Comment on above: IG% - Immature Granu locytes (promyelocytes, myelocytes and metamyelocytes) > 1% indicates that a LEFT SHIFT is Present. MCH (RBC) [Entitic mass] 28.8 pg 25.0-35.0 [facility] Work Phone: Nucleated RBC/100 WBC (Bld) [Ratio] 0 % 0-5 [facility] Work Phone: MCHC Auto (RBC) [Mass/Vol]on 10-24-2021 MCHC (RBC) [Mass/Vol] 34.1 g/dL 32-36 [facility] Work Phone: No Panel Informationon 10-24 Urine Barbiturates Screen Negative [facility] Work Phone: Urine Drug Screen Comment [facility] Work Phone: Comment on above: CONFIRMATORY TESTING [...] USE TESTMNEMONIC: [facility] Urine Methadone Screen Negative [facility] Work Phone: Urine Methamphetamine-MDMA Screen Negative [facility] Work Phone: Estimated Creatinine Clearance Calc 161.50 ml/min [facility] Work Phone: Estimated GFR (MDRD) [facility] Work Phone: Comment on above: Test not performedAf rican Eritrean GFR Calc Estimated GFR (MDRD) Non-Af [facility] Work Phone: Comment on above: Test not performedNo n- GFR Calc Ethyl Alcohol Level < 3.0 mg/dL [facility] Work Phone: Comment on above: The serum:whole bloo d ethanol ratio is approximately 1.14and varies slightly with hematocrit. Medical Alcohol reference interval and critical value innon-tolerant individuals; 50 - 100 Impairment 100 Intoxication 100 - 250 Severe Poisoning 250 - 400 Deep/possible fatal coma SARS-CoV-2 Antigen (Rapid) [facility] Work Phone: Platelets bldon 10-24-2021 Platelets (Bld) [#/Vol] 286 10*3/uL 150-450 [facility] Work Phone: Serum or plasma calcium rhona urement (mass/volume)on 10-24-2021 Calcium [Mass/Vol] 9.2 mg/dL 8.5-10.1 [facility] Work Phone: Serum or plasma creatinine m easurement (mass/volume)on 10-24-2021 Creatinine [Mass/Vol] 0.76 mg/dL 0.50-0.80 [facility] Work Phone: Serum or plasma urea nitroge n measurement (mass/volume)on 10-24-2021 Urea nitrogen [Mass/Vol] 8 mg/dL 7-18 [facility] Work Phone: Thin prep Papanicolaou smear with manual screeningon 10-24-2021 Thin prep Papanicolaou smear with manual screening 4 5-15 [facility] Work Phone: Urine phencyclidine (PCP) de tectionon 10-24-2021 Phencyclidine Ql (U) Negative [facility] Work Phone: Absolute lymphocyte counton 10-12-2021 Lymphocytes Auto (Unsp spec) [#/Vol] 2.65 10*3/uL 0.83-4.51 [facility] Work Phone: Basophil percentageon 2021 Basophils/100 WBC (Bld) 0.4 % 0-1 [facility] Work Phone: Bilirubin [Mass/Vol] 0.30 mg/dL 0.20-1.00 [facility] Work Phone: Comment on above: For patients on eltr ombopag therapy, use of Dimension [place] TBIL is not recommended. Chloride [Moles/Vol] 108 mmol/L 98-107 [facility] Work Phone: Eosinophils/100 WBC (Bld) 0.5 % 0-3 [facility] Work Phone: Glucose [Mass/Vol] 101 mg/dL 74-106 [facility] Work Phone: Comment on above: Fasting Glucose resu lt from 100 to 125 mg/dL suggests IMPAIRED HOMEOSTASIS per A.D.A. criteria. Neutrophils (Bld) [#/Vol] 6.9 10*3/uL 2.0-7.7 [facility] Work Phone: Neutrophils/100 WBC (Bld) 66.1 % 34-64 [facility] Work Phone: Potassium [Moles/Vol] 4.0 mmol/L 3.5-5.1 [facility] Work Phone: Protein [Mass/Vol] 7.8 g/dL 6.4-8.2 [facility] Work Phone: Sodium [Moles/Vol] 141 mmol/L 136-145 [facility] Work Phone: WBC (Bld) [#/Vol] 10.4 10*3/uL 4.5-13.0 [facility] Work [facility]: Blood erythrocytes count (nu mber/volume)on 10-12-2021 RBC (Bld) [#/Vol] 5.36 10*6/uL 4.5-5.1 [facility] Work Phone: Blood hemoglobin measurement (mass/volume)on 10-12-2021 Hemoglobin (Bld) [Mass/Vol] 15.5 g/dL 13.0-16.5 [facility] Work Phone: Blood lymphocytes/100 leukoc yteson 10-12-2021 Lymphocytes/100 WBC (Bld) 25.6 % 25-45 [facility] Work Phone: Blood monocytes/100 leukocyt eson 10-12-2021 Monocytes/100 WBC (Bld) 6.9 % 3-6 [facility] Work Phone: Blood platelet mean volumeon 10-12-2021 Platelet mean volume (Bld) [Entitic vol] 9.9 fL 6.2-12.0 [facility] Work Phone: Determination of erythrocyte mean corpuscular volume (MCV)on 10-12-2021 MCV (RBC) [Entitic vol] 84.0 fL 78-96 [facility] Work Phone: Hematocrit Auto (Bld) [Volum e fraction]on 10-12-2021 Hematocrit (Bld) [Volume fraction] 45.0 % 36-47 [facility] Work Phone: Laboratory - Chemistry and C hemistry - challengeon 10-12-2021 ALP [Catalytic activity/Vol] 166 U/L 74-390 [facility] Work Phone: ALT [Catalytic activity/Vol] 75 U/L 16-61 [facility] Work Phone: CO2 [Moles/Vol] 25.0 mmol/L 21.0-32.0 [facility] Work Phone: Globulin (S) [Mass/Vol] 3.5 g/dL 2.2-4.2 [facility] Work Phone: Urea nitrogen/Creatinine [Mass ratio] 19.7 mg/mg 10-20 [facility] Work Phone: Laboratory - Drug toxicology on 10-12-2021 Amphetamines Ql (U) Positive [facility] Work Phone: Benzodiazepines Ql (U) Negative [facility] Work Phone: Cannabinoids Screen Ql (U) Negative [facility] Work Phone: Cocaine Ql (U) Negative [facility] Work Phone: Opiates Ql (U) Negative [facility] Work Phone: Laboratory - Hematology and Cell countson 10-12-2021 Erythrocyte distribution width (RBC) [Entitic vol] 38.7 fL 35.1-43.9 [facility] Work Phone: Erythrocyte distribution width (RBC) [Ratio] 12.7 % 11.6-14.6 [facility] Work Phone: Immature granulocytes/100 WBC (Bld) 0.500 % 0.0-0.9 [facility] Work Phone: Comment on above: IG% - Immature Granu locytes (promyelocytes, myelocytes and metamyelocytes) > 1% indicates that a LEFT SHIFT is Present. MCH (RBC) [Entitic mass] 28.9 pg 25.0-35.0 [facility] Work Phone: Nucleated RBC/100 WBC (Bld) [Ratio] 0 % 0-5 [facility] Work Phone: MCHC Auto (RBC) [Mass/Vol]on 10-12-2021 MCHC (RBC) [Mass/Vol] 34.4 g/dL 32-36 [facility] Work Phone: No Panel Informationon 10-12 Urine Barbiturates Screen Negative [facility] Work Phone: Urine Drug Screen Comment [facility] Work Phone: Comment on above: CONFIRMATORY TESTING [...] USE TESTMNEMONIC: [facility] Urine Methadone Screen Negative [facility] Work Phone: Urine Methamphetamine-MDMA Screen Positive [facility] Work Phone: Estimated Creatinine Clearance Calc 161.50 ml/min [facility] Work Phone: Estimated GFR (MDRD) Amer TNP [facility] Work Phone: Comment on above: Test not performedAf rican Eritrean GFR Calc Estimated GFR (MDRD) Non-Af Amer TNP [facility] Work Phone: Comment on above: Test not performedNo n- GFR Calc Ethyl Alcohol Level < 3.0 mg/dL [facility] Work Phone: Comment on above: The serum:whole bloo d ethanol ratio is approximately 1.14and varies slightly with hematocrit. Medical Alcohol reference interval and critical value innon-tolerant individuals; 50 - 100 Impairment 100 Intoxication 100 - 250 Severe Poisoning 250 - 400 Deep/possible fatal coma SARS-CoV-2 Antigen (Rapid) [facility] Work Phone: Platelets bldon 10-12-2021 Platelets (Bld) [#/Vol] 329 10*3/uL 150-450 [facility] Work Phone: Serum or plasma albumin rhona urement (mass/volume)on 10-12-2021 Albumin [Mass/Vol] 4.3 g/dL 3.2-5.0 [facility] Work Phone: Serum or plasma albumin/glob ulin mass ratioon 10-12-2021 Albumin/Globulin [Mass ratio] 1.2 {ratio} 0.9-2.4 [facility] Work Phone: Serum or plasma calcium rhona urement (mass/volume)on 10-12-2021 Calcium [Mass/Vol] 9.4 mg/dL 8.5-10.1 [facility] Work Phone: Serum or plasma creatinine m easurement (mass/volume)on 10-12-2021 Creatinine [Mass/Vol] 0.76 mg/dL 0.50-0.80 [facility] Work Phone: Serum or plasma urea nitroge n measurement (mass/volume)on 10-12-2021 Urea nitrogen [Mass/Vol] 15 mg/dL 7-18 [facility] Work Phone: Thin prep Papanicolaou smear with manual screeningon 10-12-2021 Thin prep Papanicolaou smear with manual screening 24 U/L 15-37 [facility] Work Phone: Thin prep Papanicolaou smear with manual screening 8 5-15 [facility] Work Phone: Urine phencyclidine (PCP) de tectionon 10-12-2021 Phencyclidine Ql (U) Negative [facility] Work Phone: Absolute lymphocyte counton 09-08-2021 Lymphocytes Auto (Unsp spec) [#/Vol] 2.28 10*3/uL 0.83-4.51 [facility] Work Phone: [phone] Basophil percentageon 2021 Basophils/100 WBC (Bld) 0.5 % 0-1 [facility] Work Phone: Chloride [Moles/Vol] 105 mmol/L 98-107 [facility] Work Phone: Eosinophils/100 WBC (Bld) 0.6 % 0-3 [facility] Work Phone: Glucose [Mass/Vol] 103 mg/dL 74-106 [facility] Work Phone: [phone] Comment on above: Fasting Glucose resu lt from 100 to 125 mg/dL suggests IMPAIRED HOMEOSTASIS per A.D.A. criteria.Please note revised GLUCOSE reference range effective 2017. Neutrophils (Bld) [#/Vol] 5.5 10*3/uL 2.0-7.7 [facility] Work Phone: Neutrophils/100 WBC (Bld) 64.6 % 34-64 [facility] Work Phone: Potassium [Moles/Vol] 4.0 mmol/L 3.5-5.1 [facility] Work Phone: [phone] Sodium [Moles/Vol] 140 mmol/L 136-145 [facility] Work Phone: [phone] WBC (Bld) [#/Vol] 8.5 10*3/uL 4.5-13.0 [facility] Work Phone: Blood erythrocytes count (nu mber/volume)on 09-08-2021 RBC (Bld) [#/Vol] 5.43 10*6/uL 4.5-5.1 [facility] Work Phone: Blood hemoglobin measurement (mass/volume)on 09-08-2021 Hemoglobin (Bld) [Mass/Vol] 15.6 g/dL 13.0-16.5 [facility] Work Phone: Blood lymphocytes/100 leukoc yteson 09-08-2021 Lymphocytes/100 WBC (Bld) 26.9 % 25-45 [facility] Work Phone: Blood monocytes/100 leukocyt eson 09-08-2021 Monocytes/100 WBC (Bld) 6.8 % 3-6 [facility] Work Phone: Blood platelet mean volumeon 09-08-2021 Platelet mean volume (Bld) [Entitic vol] 9.9 fL 6.2-12.0 [facility] Work Phone: Determination of erythrocyte mean corpuscular volume (MCV)on 09-08-2021 MCV (RBC) [Entitic vol] 83.8 fL 78-96 [facility] Work Phone: Hematocrit Auto (Bld) [Volum e fraction]on 09-08-2021 Hematocrit (Bld) [Volume fraction] 45.5 % 36-47 [facility] Work Phone: Laboratory - Chemistry and C hemistry - challengeon 09-08-2021 CO2 [Moles/Vol] 27.0 mmol/L 21.0-32.0 [facility] Work Phone: Urea nitrogen/Creatinine [Mass ratio] 23.0 mg/mg 10-20 [facility] Work Phone: Laboratory - Drug toxicology on 09-08-2021 Amphetamines Ql (U) Positive [facility] Work Phone: Benzodiazepines Ql (U) Negative [facility] Work Phone: Cannabinoids Screen Ql (U) Negative [facility] Work Phone: Cocaine Ql (U) Negative [facility] Work Phone: Opiates Ql (U) Negative [facility] Work Phone: Laboratory - Hematology and Cell countson 09-08-2021 Erythrocyte distribution width (RBC) [Entitic vol] 38.5 fL 35.1-43.9 [facility] Work Phone: Erythrocyte distribution width (RBC) [Ratio] 12.7 % 11.6-14.6 [facility] Work Phone: Immature granulocytes/100 WBC (Bld) 0.600 % 0.0-0.9 [facility] Work Phone: Comment on above: IG% - Immature Granu locytes (promyelocytes, myelocytes and metamyelocytes) > 1% indicates that a LEFT SHIFT is Present. MCH (RBC) [Entitic mass] 28.7 pg 25.0-35.0 [facility] Work Phone: Nucleated RBC/100 WBC (Bld) [Ratio] 0 % 0-5 [facility] Work Phone: MCHC Auto (RBC) [Mass/Vol]on 09-08-2021 MCHC (RBC) [Mass/Vol] 34.3 g/dL 32-36 [facility] Work Phone: No Panel Informationon 09-08 Estimated Creatinine Clearance Calc 175.35 ml/min [facility] Work Phone: Estimated GFR (MDRD) [facility] Work Phone: Comment on above: Test not performedAf rican Eritrean GFR Calc Estimated GFR (MDRD) Non-Af [facility] Work Phone: Comment on above: Test not performedNo n- GFR Calc Ethyl Alcohol Level < 3.0 mg/dL [facility] Work Phone: Comment on above: The serum:whole bloo d ethanol ratio is approximately 1.14and varies slightly with hematocrit. Medical Alcohol reference interval and critical value innon-tolerant individuals; 50 - 100 Impairment 100 Intoxication 100 - 250 Severe Poisoning 250 - 400 Deep/possible fatal coma Urine Barbiturates Screen Negative [facility] Work Phone: Urine Drug Screen Comment [facility] Work Phone: Comment on above: CONFIRMATORY TESTING [...] USE TESTMNEMONIC: [facility] Urine Methadone Screen Negative [facility] Work Phone: Urine Methamphetamine-MDMA Screen Negative [facility] Work Phone: Platelets bldon 09-08-2021 Platelets (Bld) [#/Vol] 318 10*3/uL 150-450 [facility] Work Phone: Serum or plasma calcium rhona urement (mass/volume)on 09-08-2021 Calcium [Mass/Vol] 9.6 mg/dL 8.5-10.1 [facility] Work Phone: Serum or plasma creatinine m easurement (mass/volume)on 09-08-2021 Creatinine [Mass/Vol] 0.70 mg/dL 0.50-0.80 [facility] Work Phone: Serum or plasma urea nitroge n measurement (mass/volume)on 09-08-2021 Urea nitrogen [Mass/Vol] 16 mg/dL 7-18 [facility] Work Phone: Thin prep Papanicolaou smear with manual screeningon 09-08-2021 Thin prep Papanicolaou smear with manual screening 8 5-15 [facility] Work Phone: Urine phencyclidine (PCP) de tectionon 09-08-2021 Phencyclidine Ql (U) Negative [facility] Work Phone: Vital Signs Date Time Vital Sign Value Performing Clinician Facility 04-13-2024 14:03-0400 Body temperature 98.1 [degF] Krislyn Aberegg PA Work Phone: [facility] 04-13-2024 14:03-0400 Body weight 124.6 kg Krislyn Aberegg PA Work Phone: [facility] 04-13-2024 14:03-0400 Diastolic blood pressure 84 mm[Hg] Krislyn Aberegg PA Work Phone: [facility] 04-13-2024 14:03-0400 Heart rate 65 /min Krislyn Aberegg PA Work Phone: [facility] 04-13-2024 14:03-0400 Respiratory rate 16 /min Krislyn Aberegg PA Work Phone: [facility] 04-13-2024 14:03-0400 SaO2% (BldA) [Mass fraction] 98 % Krislyn Aberegg PA Work Phone: [facility] 04-13-2024 14:03-0400 Systolic blood pressure 132 mm[Hg] Krislyn Aberegg PA Work Phone: [facility] 12-27-2022 18:00-0400 Diastolic blood pressure 78 mm[Hg] [facility] 12-27-2022 18:00-0400 Heart rate 98 /min [facility] 12-27-2022 18:00-0400 Respiratory rate 16 /min [facility] 12-27-2022 18:00-0400 SaO2% (BldA) [Mass fraction] 100 % [facility] 12-27-2022 18:00-0400 Systolic blood pressure 134 mm[Hg] [facility] 12-26-2022 23:57-0400 Body temperature 97.8 [degF] [facility] 12-26-2022 15:32-0400 Body height 180.34 cm [facility] 12-26-2022 15:32-0400 Body mass index (BMI) [Percentile] Per age and sex 99.8 % [facility] 12-26-2022 15:32-0400 Body mass index (BMI) [Ratio] 42.1 kg/m2 [facility] 12-26-2022 15:32-0400 Body weight 137.07 kg [facility] 12-24-2022 16:00-0400 Diastolic blood pressure 90 mm[Hg] [facility] 12-24-2022 16:00-0400 Heart rate 90 /min [facility] 12-24-2022 16:00-0400 Respiratory rate 16 /min [facility] 12-24-2022 16:00-0400 SaO2% (BldA) [Mass fraction] 98 % [facility] 12-24-2022 16:00-0400 Systolic blood pressure 140 mm[Hg] [facility] 12-24-2022 14:15-0400 Body mass index (BMI) [Percentile] Per age and sex 99.8 % [facility] 12-24-2022 14:15-0400 Body mass index (BMI) [Ratio] 42.5 kg/m2 [facility] 12-24-2022 14:15-0400 Body temperature 97.6 [degF] [facility] 12-24-2022 14:15-0400 Body weight 138.34 kg [facility] 08-06-2022 15:41-0500 Body temperature 98.2 [degF] Ashley Ruiz MD Work Phone: [facility] 08-06-2022 15:41-0500 Body weight 134.4 kg Ashley Ruiz MD Work Phone: [facility] 08-06-2022 15:41-0500 Diastolic blood pressure 79 mm[Hg] Ashley Ruiz MD Work Phone: [facility] 08-06-2022 15:41-0500 Heart rate 91 /min Ashley Ruiz MD Work Phone: [facility] 08-06-2022 15:41-0500 Respiratory rate 20 /min Ashley Ruiz MD Work Phone: [facility] 08-06-2022 15:41-0500 SaO2% (BldA) [Mass fraction] 99 % Ashley Ruiz MD Work Phone: [facility] 08-06-2022 15:41-0500 Systolic blood pressure 134 mm[Hg] Ashley Ruiz MD Work Phone: [facility] 06-28-2022 12:43-0400 Diastolic blood pressure 78 mm[Hg] [facility] Work Phone: 06-28-2022 12:43-0400 Heart rate 66 /min [facility] Work Phone: 06-28-2022 12:43-0400 Respiratory rate 18 /min [facility] Work Phone: 06-28-2022 12:43-0400 SaO2% (BldA) [Mass fraction] 99 % [facility] Work Phone: 06-28-2022 12:43-0400 Systolic blood pressure 115 mm[Hg] [facility] Work Phone: 06-28-2022 09:44-0400 Body height 180.34 cm [facility] Work Phone: 06-28-2022 09:44-0400 Body mass index (BMI) [Percentile] Per age and sex 99.7 % [facility] Work Phone: 06-28-2022 09:44-0400 Body mass index (BMI) [Ratio] 40.8 kg/m2 [facility] Work Phone: 06-28-2022 09:44-0400 Body temperature 98.2 [degF] [facility] Work Phone: 06-28-2022 09:44-0400 Body weight 133 kg [facility] Work Phone: 06-23-2022 09:04-0400 Diastolic blood pressure 99 mm[Hg] [facility] Work Phone: 06-23-2022 09:04-0400 Heart rate 87 /min [facility] Work Phone: 06-23-2022 09:04-0400 Respiratory rate 16 /min [facility] Work Phone: 06-23-2022 09:04-0400 SaO2% (BldA) [Mass fraction] 96 % [facility] Work Phone: 06-23-2022 09:04-0400 Systolic blood pressure 143 mm[Hg] [facility] Work Phone: 06-23-2022 06:00-0400 Body temperature 98.1 [degF] [facility] Work Phone: 06-21-2022 13:06-0400 Body height 177.8 cm [facility] Work Phone: 06-21-2022 13:06-0400 Body mass index (BMI) [Percentile] Per age and sex 99.8 % [facility] Work Phone: 06-21-2022 13:06-0400 Body mass index (BMI) [Ratio] 42 kg/m2 [facility] Work Phone: 06-21-2022 13:06-0400 Body weight 133 kg [facility] Work Phone: 06-14-2022 03:41-0400 Body temperature 97 [degF] Chapis Son DO Work Phone: [facility] 06-14-2022 03:41-0400 Diastolic blood pressure 89 mm[Hg] Chapis Son DO Work Phone: [facility] 06-14-2022 03:41-0400 Heart rate 66 /min Chapis Son DO Work Phone: [facility] 06-14-2022 03:41-0400 Respiratory rate 18 /min Chapis Son DO Work Phone: [facility] 06-14-2022 03:41-0400 SaO2% (BldA) [Mass fraction] 97 % Chapis Son DO Work Phone: [facility] 06-14-2022 03:41-0400 Systolic blood pressure 145 mm[Hg] Chapis Son DO Work Phone: [facility] 06-13-2022 16:01-0400 Body weight 132 kg Chapis Son DO Work Phone: [facility] 01-08-2022 19:15-0400 Body temperature 98.2 [degF] [facility] Work Phone: 01-08-2022 19:15-0400 Diastolic blood pressure 72 mm[Hg] [facility] Work Phone: 01-08-2022 19:15-0400 Heart rate 63 /min [facility] Work Phone: 01-08-2022 19:15-0400 Respiratory rate 16 /min [facility] Work Phone: 01-08-2022 19:15-0400 SaO2% (BldA) [Mass fraction] 98 % [facility] Work Phone: 01-08-2022 19:15-0400 Systolic blood pressure 132 mm[Hg] [facility] Work Phone: 01-08-2022 15:08-0400 Body height 177.8 cm [facility] Work Phone: 01-08-2022 15:08-0400 Body mass index (BMI) [Ratio] 40.1 kg/m2 [facility] Work Phone: 01-08-2022 15:08-0400 Body weight 127 kg [facility] Work Phone: 12-03-2021 21:50-0400 Body height 175.26 cm [facility] Work Phone: 12-03-2021 21:50-0400 Body mass index (BMI) [Ratio] 39.9 kg/m2 [facility] Work Phone: 12-03-2021 21:50-0400 Body temperature 97.4 [degF] [facility] Work Phone: 12-03-2021 21:50-0400 Body weight 122.46 kg [facility] Work Phone: 12-03-2021 21:50-0400 Diastolic blood pressure 81 mm[Hg] [facility] Work Phone: 12-03-2021 21:50-0400 Heart rate 89 /min [facility] Work Phone: 12-03-2021 21:50-0400 Respiratory rate 18 /min [facility] Work Phone: 12-03-2021 21:50-0400 SaO2% (BldA) [Mass fraction] 97 % [facility] Work Phone: 12-03-2021 21:50-0400 Systolic blood pressure 137 mm[Hg] [facility] Work Phone: 11-26-2021 00:08-0400 Diastolic blood pressure 82 mm[Hg] [facility] Work Phone: 11-26-2021 00:08-0400 Heart rate 76 /min [facility] Work Phone: 11-26-2021 00:08-0400 Respiratory rate 16 /min [facility] Work Phone: 11-26-2021 00:08-0400 SaO2% (BldA) [Mass fraction] 97 % [facility] Work Phone: 11-26-2021 00:08-0400 Systolic blood pressure 141 mm[Hg] [facility] Work Phone: 11-25-2021 19:41-0400 Body mass index (BMI) [Ratio] 40.7 kg/m2 [facility] Work Phone: 11-25-2021 19:41-0400 Body temperature 98.6 [degF] [facility] Work Phone: 11-25-2021 19:41-0400 Body weight 125.19 kg [facility] Work Phone: 10-25-2021 13:08-0500 Body temperature 98.1 [degF] [facility] Work Phone: 10-25-2021 13:08-0500 Diastolic blood pressure 86 mm[Hg] [facility] Work Phone: 10-25-2021 13:08-0500 Heart rate 94 /min [facility] Work Phone: 10-25-2021 13:08-0500 Respiratory rate 18 /min [facility] Work Phone: 10-25-2021 13:08-0500 SaO2% (BldA) [Mass fraction] 95 % [facility] Work Phone: 10-25-2021 13:08-0500 Systolic blood pressure 124 mm[Hg] [facility] Work Phone: 10-24-2021 16:34-0500 Body mass index (BMI) [Ratio] 39 kg/m2 [facility] Work Phone: 10-24-2021 16:34-0500 Body weight 120 kg [facility] Work Phone: 10-15-2021 18:22-0500 Diastolic blood pressure 82 mm[Hg] [facility] Work Phone: 10-15-2021 18:22-0500 Heart rate 88 /min [facility] Work Phone: 10-15-2021 18:22-0500 Respiratory rate 16 /min [facility] Work Phone: 10-15-2021 18:22-0500 SaO2% (BldA) [Mass fraction] 98 % [facility] Work Phone: 10-15-2021 18:22-0500 Systolic blood pressure 136 mm[Hg] [facility] Work Phone: 10-15-2021 05:17-0500 Body temperature 97.7 [degF] [facility] Work Phone: 10-12-2021 20:52-0500 Body mass index (BMI) [Ratio] 39 kg/m2 [facility] Work Phone: 10-12-2021 20:52-0500 Body weight 120 kg [facility] Work Phone: 09-11-2021 20:40-0500 Body temperature 97.16 [degF] DR CLAUDIA BURNHAM DO [facility] 09-11-2021 20:40-0500 Diastolic blood pressure 85 mm[Hg] DR CLAUDIA BURNHAM DO [facility] 09-11-2021 20:40-0500 Heart rate 80 /min DR CLAUDIA BURNHAM DO [facility] 09-11-2021 20:40-0500 Respiratory rate 18 /min DR CLAUDIA BURNHAM DO [facility] 09-11-2021 20:40-0500 Systolic blood pressure 132 mm[Hg] DR CLAUDIA BURNHAM DO [facility] 09-08-2021 02:30-0500 Diastolic blood pressure 78 mm[Hg] [facility] Work Phone: 09-08-2021 02:30-0500 Heart rate 80 /min [facility] Work Phone: 09-08-2021 02:30-0500 Respiratory rate 16 /min [facility] Work Phone: 09-08-2021 02:30-0500 Systolic blood pressure 136 mm[Hg] [facility] Work Phone: 09-07-2021 22:59-0500 Body mass index (BMI) [Ratio] 37.3 kg/m2 [facility] Work Phone: 09-07-2021 22:59-0500 Body temperature 97.6 [degF] [facility] Work Phone: 09-07-2021 22:59-0500 Body weight 114.75 kg [facility] Work Phone: 09-07-2021 22:59-0500 SaO2% (BldA) [Mass fraction] 100 % [facility] Work Phone: Encounters Encounter Date Encounter Type Care Provider Facility Start: 01-02-2025 End: 01-02-2025 Emergency department patient visit Marek Booker Facility:[facility] Start: 08-20-2024 End: 08-20-2024 ambulatory SHARON Jamie [facility] Start: 08-14-2024 End: 08-14-2024 ambulatory [facility] Start: 04-25-2024 End: 04-25-2024 ambulatory [facility] Start: 04-13-2024 End: 04-13-2024 ambulatory SALLIE CASTELLANOS RASHAD Facility:[facility] Start: 04-13-2024 End: 04-13-2024 Patient encounter procedure Christos NELSON Work Phone: [facility] Comment on above: Skin infection (Prim dominique Dx) Start: 02-12-2024 End: 02-12-2024 ambulatory [facility] Start: 12-27-2023 End: 12-27-2023 ambulatory SALLIE Ayala [facility] Start: 11-29-2023 End: 11-29-2023 ambulatory SALLIE R [facility] Start: 10-31-2023 End: 10-31-2023 ambulatory SALLIE R RASHAD [facility] Start: 10-22-2023 End: 10-22-2023 ambulatory FABBY Justice MAULIK [facility] Start: 10-08-2023 End: 10-08-2023 ambulatory FABBY H MAULIK [facility] Start: 09-20-2023 End: 09-20-2023 ambulatory SELF REFERRED [facility] Start: 08-15-2023 End: 08-16-2023 ambulatory FABBY MAULIK Facility:[facility] Start: 06-20-2023 End: 10-18-2023 ambulatory BRITTANY MAR APRN Facility:[facility] Start: 05-30-2023 End: 05-31-2023 ambulatory SALLIE~[id number] RASHAD RASHAD SALLIE Facility:[facility] Start: 03-22-2023 End: 03-23-2023 ambulatory FABBY WILLINGHAM Facility:[facility] Start: 01-24-2023 End: 01-24-2023 Subsequent hospital visit by physician Arleen [facility] Work Phone: Radiology Comment on above: Acute cough [R05.1] Start: 12-26-2022 End: 12-27-2022 Emergency department patient visit [facility] Start: 12-24-2022 End: 12-24-2022 Emergency department patient visit [facility] Start: 08-06-2022 End: 08-06-2022 Emergency department patient visit Ashley Ruiz MD Work Phone: [facility] Start: 06-28-2022 End: 06-28-2022 Emergency department patient visit [facility] Start: 06-23-2022 End: 06-26-2022 Evaluation and management of inpatient REFERRED SELF [facility] Start: 06-21-2022 End: 06-23-2022 Emergency department patient visit [facility] Start: 06-13-2022 End: 06-14-2022 Emergency department patient visit Chapis Mari DO Work Phone: [facility] Start: 01-08-2022 End: 01-08-2022 Emergency department patient visit [facility] Start: 12-03-2021 End: 12-04-2021 Emergency department patient visit [facility] Start: 11-26-2021 End: 12-03-2021 Evaluation and management of inpatient SALLIE [facility] Start: 11-25-2021 End: 11-26-2021 Emergency department patient visit [facility] Start: 10-24-2021 End: 10-25-2021 Emergency department patient visit [facility] Start: 10-12-2021 End: 10-15-2021 Emergency department patient visit [facility] Start: 09-11-2021 End: 09-11-2021 Emergency department patient visit DR CLAUDIA BURNHAM DO [facility] Start: 09-07-2021 End: 09-08-2021 Emergency department patient visit [facility] Procedures Date Procedure Procedure Detail Performing [...] Pertussis Vaccines (7 - Td or Tdap) [facility] Start: 05-16-2027 Urine microalbumin profile DTaP,Tdap,Td Vaccine (7 - Td or Tdap) [facility] Start: 05-04-2024 Covid-19 Vaccine ( season) Covid-19 Vaccine () [facility] Start: 05-04-2024 Influenza vaccination Influenza Vaccine (#1) [facility] Start: 12-22-2023 Anxiety Screening Anxiety Screening [facility] Start: 12-22-2023 Depression Screening Depression Screening [facility] Start: 12-22-2023 Hepatitis C screening Hepatitis C Screening [facility] Start: 12-22-2023 HIV screening HIV Screening [facility] Start: 11-26-2023 Meningococcal B Vaccine: Consider Based On Risk (2 of 2 - Risk Bexsero 2-dose series) Meningococcal B Vaccine: Consider Based On Risk (2 of 2 - Risk Bexsero 2-dose series) [facility] Start: 05-04-2023 Covid-19 Vaccine () Covid-19 Vaccine () [facility] Start: 12-26-2022 Lamotrigine measurement [facility] Start: 12-26-2022 Referral to service [facility] Start: 12-26-2022 End: 12-26-2022 Suicide precautions [facility] Start: 06-28-2022 Suicide precautions [facility] Work Phone: Start: 06-21-2022 Referral to service [facility] Work Phone: Start: 06-21-2022 End: 06-21-2022 Suicide precautions [facility] Work Phone: Start: 06-16-2022 End: 06-16-2022 ambulatory 06/16/2022 Telehealth Psychiatry Fabby Willingham, 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-[employer]GRAM [employer] [address] [facility] [address] [place] [address] [facility] Out[facility] Start: 05-04-2022 FLU (#1) FLU (#1) [facility] Start: 12-31-2021 Well Visit Well Visit [facility] Start: 2021 MenACWY (2 - 2-dose series) MenACWY (2 - 2-dose series) [facility] Start: 2021 MenB (1 of 2 - MenB 2-Dose Series) MenB (1 of 2 - MenB 2-Dose Series) [facility] Start: 10-21-2021 AIMS 6 Month Check AIMS 6 Month Check [facility] Start: 08-17-2021 COVID-19 (3 - Booster for Pfizer series) COVID-19 (3 - Booster for Pfizer series) [facility] Start: 2020 Vision Screening Vision Screening [facility] Start: 12-22-2019 Peds To Adult Transition Annual Assessment Peds To Adult Transition Annual Assessment [facility] Start: 2017 Peds To Adult Transition Initial Discussion Peds To Adult Transition Initial Discussion [facility] Patient Education [facility] Work Phone: Patient referral [facility] Work Phone: Immunizations Immunization Date Immunization Notes Care Provider Fa cili 10-29-2023 influenza virus vacc ine, unspecified formulation Christos NELSON Work Phone: [facility] 08-06-2022 influenza, injectabl e, quadrivalent, preservative free Ashley Ruiz MD Work Phone: [facility] 06-22-2021 PFIZER (purple cap) COVID-19, mRNA, LNP-S, 30mcg/0.3mL dose Chapis Son DO Work Phone: [facility] 05-30-2021 influenza, injectabl e, quadrivalent, preservative free Chapis Son DO Work Phone: [facility] 05-30-2021 PFIZER (purple cap) COVID-19, mRNA, LNP-S, 30mcg/0.3mL dose Chapis Son DO Work Phone: [facility] 07-16-2019 hepatitis B vaccine, pediatric or pediatric/adolescent dosage Chapis Son DO Work Phone: [facility] 12-25-2018 Human Papillomavirus 9-valent vaccine Chapis Son DO Work Phone: [facility] 05-22-2018 Human Papillomavirus 9-valent vaccine Chapis Son DO Work Phone: [facility] 05-16-2017 meningococcal polysaccharide (groups A, C, Y and W-135) diphtheria toxoid conjugate vaccine (MCV4P) Chapis Son DO Work Phone: [facility] 05-16-2017 tetanus toxoid, redu luz maria diphtheria toxoid, and acellular pertussis vaccine, adsorbed Chapis Son DO Work Phone: [facility] 09-22-2015 influenza, live, intranasal, quadrivalent Chapis Son DO Work Phone: [facility] 06-17-2012 influenza virus vacc ine, live, attenuated, for intranasal use Chapis Son DO Work Phone: [facility] 05-15-2012 influenza virus vacc ine, live, attenuated,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 care. Always follow yourhealthcare professional's instructions. Follow Up Care 09/11/2021 20:33:14 With:SALLIE SOLORZANO MD Address: [address] [place] [address] [address] [place] [address]- When:2-4 days [facility] Evaluation + Plan note No data available for this section [facility] Evaluation noteNo assessment information available [facility] Work Phone: Evaluation note* Diagnosis Skin infection- Primary Unspecified local infection of skin and subcutaneous tissue [facility] instructions Additional Instructions Follow-up with your counseling appointment as scheduled.[facility] Work Phone: Hospital Discharge instructions Additional Instructions Follow-up with your psychiatrist as instructed as well as the counseling center. [facility] Work Phone: Chief Complaint and Reason for [...] section and content) DATE CREATED AUTHOR 12/07/2021 [facility] DATE CREATED AUTHOR AUTHOR'S ORGANIZ ATION 06/28/2022 [facility] DATE CREATED AUTHOR AUTHOR'S ORGANIZ ATION 10/19/2023 [facility] DATE CREATED AUTHOR AUTHOR'S ORGANIZ ATION 04/14/2024 [facility] DATE CREATED AUTHOR AUTHOR'S ORGANIZ ATION 08/23/2024 [facility] DATE CREATED AUTHOR AUTHOR'S ORGANIZ ATION 03/06/2025 [facility] Reason for Visit (unrecogniz ed section [...] Care Teams (unrecognized sec tion and content) Blueprint Reproducer Relationship Specialty Start Date End Date Sallie Solorzano MD [address] [place] [id number] PCP - General Pediatrics 01/24/21 Blueprint Reproducer Relationship Specialty Start Date End Date Sallie Solorzano MD [address] [place] [id number] PCP - General Pediatrics 01/24/21 Team [...] Dr. Whitney Santo MD Emergency Provider Active Blueprint Reproducer Relationship Specialty Start Date End Date Sallie Solorzano [address] [place] [address] PCP - General Pediatrics 01/24/23 Blueprint Reproducer Relationship Specialty Start Date End Date Sallie Solorzano [address] [place] [address] PCP - General Pediatrics 01/24/23 Source Comments (unrecognize d section and content) In the event this informatio n is protected by the Federal Confidentiality of Alcohol and Drug Abuse Patient Records regulations: The Federal rules restrict any use of the information to criminally investigate or prosecute any alcohol or drug abuse patient.[facility] event this information is protected by the Federal Confidentiality of Alcohol and Drug Abuse Patient Records regulations: The Federal rules restrict any use of the information to criminally investigate or prosecute any alcohol or drug abuse patient.[facility] FOR RECORDS PERTAINING TO PATIENTS WHO [...] BE BASED ON THE PRIMARY CLINICAL RECORDS. [facility]. provides no warranty or guarantee of the accuracy or completeness of information in this document.
[2025-03-17 03:29] VITALS: BP 141/87; PULSE 99; RESP 18; TEMP 36.8; O2SAT 97
[2025-03-17] MEDS: Lidocaine 2% /Epi 1:100 (50ml) 50 ML Vial INFILT (03:29)
== END 2025-03-17 03:30 | disposition home or self-care (01) ==
LOC: ED 03:21
PROVIDERS: Emergency Provider Emergency Medicine; PCP Pediatrics; Visit Provider Emergency Medicine
DX: S51.811A Laceration without foreign body of right forearm, initial encounter (principal); F90.9 Attention-deficit hyperactivity disorder, unspecified type; S50.811A Abrasion of right forearm, initial encounter; F32.A Depression, unspecified; F41.9 Anxiety disorder, unspecified; F17.210 Nicotine dependence, cigarettes, uncomplicated; E66.9 Obesity, unspecified; X58.XXXA Exposure to other specified factors, initial encounter
CPT/HCPCS: 12002; 99284

== ENCOUNTER 2025-05-09 13:38 | Emergency (ER) | payer BC, MEDICAID, SELFPAY ==
[2025-05-09 13:39] VITALS: BP 150/94; PULSE 106; RESP 16; TEMP 36.7; O2SAT 97
--- NOTE | 2025-05-09 14:36 | ED.RN ---
this nurse started rn protocols, radiology attempted to find pt for xray, pt was not in the restroom or outside. we waiting 30 minutes and could not find pt. switched status to lwbs, [id number]
--- OUTSIDE RECORDS SUMMARY | 2025-05-09 14:42 | XMS RPT_ITS | CCD ---
Author Organization [facility] Care Team Providers Care Analytics Intern Name Role Phone RASHAD COHEN, DR SALLIE Ayala Primary Care Physician [phone] SALLIE SOLORZANO Primary Care Unavailable DOT LAGUNAS Consulting Unavailable DOT LAGUNAS Admitting Unavailable DOT LAGUNAS Attending Unavailable Sallie Solorzano MD Primary Care Provider SELF, REFERRED Referring Unavailable RONIT RAYGOZA Attending Unavailable RONIT RAYGOZA Admitting Unavailable MAULIK, FABBY Admitting Unavailable MAULIK, FABBY Consulting Unavailable MAULIK, FABBY Attending Unavailable SALLIE FINN~[phone] [facility] Primary Care Unavailable SALLIE FINN~[phone] RASHAD Consulti ng Unavailable SALLIE SOLORZANO Consulting Unavailable BRITTANY MAR APRN Consulting Unavailab SALLIE Hodges~[phone] [facility] Primary Care Unavailable ISABELAMEDHAT LAM~[phone], ISABELA [place] Admitti ng Unavailable ISABELA LAM~[phone], ISABELA [place] Attendi ng Unavailable BRITTANY MAR APRN Consulting Unavailab SALLIE Hodges~[phone] [facility] Primary Care Unavailable BRITTANY MAR Admitting Unavailable BRITTANY MAR Consulting Unavailable BRITTANY MAR Attending Unavailable BRITTANY MAR APRN Consulting Unavailab Mehnaz COHEN, TREVIN Consulting Unavailable TREVIN JANE MD Consulting Unavailable SALLIE FINN~[phone] RASHAD Consulti ng Unavailable SALLIE SOLORZANO Consulting Unavailable MAULIK, FABBY Consulting Unavailable MAULIK, FABBY Attending Unavailable SALLIE FINN~[phone] [facility] Primary Care Unavailable MAULIK, FABBY Admitting Unavailable SALLIE FINN~[phone] RASHAD Consulti ng Unavailable SALLIE SOLORZANO Consulting Unavailable Sallie Solorzano Primary Care Provider SALLIE SOLORZANO Primary Care Unavailab le MAULIK, FABBY H Attending Unavailable RASHAD SALLIE R Primary Care Unavailable REFERRED, SELF Referring Unavailable SALLIE SOLORZANO R Primary Care Unavailable MAULIK, FABBY H Attending Unavailable REFERRED, SELF Referring Unavailable MAULIK, FABBY H Attending Unavailable REFERRED, SELF Referring Unavailable SALLIE SOLORZANO R Primary Care Unavailable REFERRED, SELF Referring Unavailable MAULIK, FABBY H Attending Unavailable SALLIE SOLORZANO R Primary Care Unavailable SALLIE SOLORZANO R Primary Care Unavailable SALLIE SOLORZANO R Attending Unavailable REFERRED, SELF Referring Unavailable MAULIK, FABBY H Attending Unavailable MAULIK, FABBY H Referring Unavailable SALLIE SOLORZANO R Primary Care [...] Referring Unavailable SALLIE SOLORZANO Primary Care Unavailable Dr. Sallie Solorzano MD Primary Care Provider Dr. Marek Booker DO Attending Provider Dr. Marek Booker DO Emergency Provider Dr. Adebayo Tapia DO Emergency Provider Sallie Solorzano Primary Care Unavailable Marek Booker Attending Unavailable Adebayo Tapia Attending Unavailable Sallie Solorzano Primary Care Unavailable [...] 01/10/2023 Active lamoTRIgine 100 mg oral tablet (14 sources) Mood Stabilizer, Anti-epileptic Agent Start: 02-12-2024 lamoTRIgine (LAMICTAL) 100 mg tablet Take 50 mg by mouth. 0 02/12/2024 Active Start: 12-26-2022 take 1 tablet by david twice daily lamoTRIgine (LAMICTAL) 100 mg tablet Take 100 mg by mouth twice daily. 12/26/2022 Active Start: 07-19-2022 lamoTRIgine (L aMICtal) tablet 100 mg Start: 04-03-2022 End: 06-14-2022 lamoTRIgine (LaMICtal) table t 100 mg Start: 01-08-2022 take 100 mg by mouth at bedtim e Lamotrigine Active 100 MG PO AT BEDTIME January 08, 2022 3:07pm Start: 12-03-2021 take 3 tablets by mo uth once daily Lamotrigine (Lamictal) 25 mg Tablet Active 75 MG PO DAILY December 03, 2021 10:07pm Start: 12-03-2021 take 3 tablets by mo uth twice daily Lamotrigine (Lamictal) 25 mg Tablet Active 75 MG PO TWICE A DAY December 03, 2021 10:07pm Start: 12-03-2021 End: 03-17-2025 take 4 tablets by mouth twice daily Lamotrigine (Lamictal) 25 mg Tablet Discontinued 100 mg PO TWICE A DAY December 03, 2021 12:00am March 17, 2025 2:16am lithium carbonate 300 mg ora l capsule (4 sources) Start: 01-08-2023 lithium carbon ate (ESKALITH) 300 mg capsule 01/08/2023 Active Start: 01-04-2023 lithium carbon ate (ESKALITH) 150 mg capsule 01/04/2023 Active lurasidone hydrochloride 40 mg oral tablet (11 sources) Atypical Antipsychotic Start: 01-04-2023 lurasid one [...] (La tuda) 60 mg Tablet Active 80 mg PO 1600 December 03, 2021 12:00am 30/70 release 24 hr methylphenidate hydrochloride 40 mg extended release oral capsule (4 sources) Central Nervous System Stimulant Start: 12-26-2022 Methylphenidate Hcl 40 mg capsule, ER biphasic 30-70 Active 40 mg PO DAILY December 26, 2022 12:00am Start: [...] 05/12/2024 Active sertraline 50 mg oral tablet (8 sources) Serotonin Reuptake Inhibitor Start: 01-04-2023 sertraline (ZOLOFT) 50 mg tablet 01/04/2023 Active Start: 07-31-2022 End: 08-06-2022 sertraline (ZOLOFT) 50 MG ta blet 50 mg Start: 06-21-2022 End: 03-17-2025 take 4 tablets by mouth at bedtime Sertraline 25 mg Tablet Discontinued 100 mg PO AT BEDTIME June 21, 2022 12:00am March 17, 2025 2:16am Start: 06-21-2022 take 100 mg by mouth [...] 12:00am traZODone hydrochloride 50 mg oral tablet (3 sources) Serotonin Reuptake Inhibitor Start: 03-17-2025 take 1 tablet by mouth at bedtime Trazodone 50 mg tablet Active 50 mg PO AT BEDTIME March 17, 2025 12:00am Start: 01-10-2023 traZODone (MATTHIAS YREL) 50 mg tablet 01/10/2023 Active Completed/Discontinued Medications [...] Problem Date Documented Date Episodic/Chronic Anxiety disorders (14 sources) Self inflicted injury; Translations: [Self-inflicted injury] Onset: 06-23-2022 Chronic Attention-deficit, conduct, and disruptive behavior disorders (8 sources) Oppositional defiant disorder; Translations: [Oppositional defiant disorder] Onset: 09-14-2021 Resolved: 01-10-2022 01-10-2022 Chronic Attention-deficit, conduct, and disruptive behavior disorders (2 sources) Attention deficit hyperactivity disorder, combined type; Translations: [Attention-deficit hyperactivity disorder, combined type] Onset: 08-11-2019 04-22-2021 Chronic Disorders usually diagnosed in infancy, childhood, or adolescence (2 sources) Autism spectrum disorder; Translations: [Autistic disorder] Onset: 09-05-2021 09-05-2021 Chronic Impulse control disorders, NEC (1 source) Homicidal thoughts; Translations: [Homicidal ideations] 01-10-2025 Episodic Miscellaneous mental health disorders (2 sources) Mental disorder; Translations: [Mental disorder, not otherwise specified] Onset: 06-13-2022 06-13-2022 Chronic Mood disorders (20 sources) Depressive disorder; Translations: [Depression with suicidal ideation] Onset: 03-21-2021 Resolved: 01-10-2022 06-14-2022 Chronic Open wounds of extremities (6 sources) Superficial laceration of forearm; Translations: [Laceration without foreign body of unspecified forearm, initial encounter] Onset: 03-23-2025 07-01-2022 Episodic Open wounds of head; neck; and trunk (4 sources) Laceration of neck; Translations: [Laceration without foreign body of unspecified part of neck, initial encounter] 07-01-2022 Episodic Other aftercare (3 sources) Other 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 therapy; Translations: [OTH SENIOR DATA ARCHITECT CURRENT DRUG THERAPY] Onset: 03-22-2023 Episodic Other injuries and conditions due to external causes (6 sources) Abrasion and/or friction burn of multiple sites; Translations: [Unspecified multiple injuries, initial encounter] 12-12-2021 Episodic Other nutritional; endocrine; and metabolic disorders (2 sources) Obesity; Translations: [Obesity, unspecified] Onset: 05-15-2012 10-13-2021 Chronic Other upper respiratory disease (2 sources) Allergic rhinitis; Translations: [Allergic rhinitis, unspecified] Onset: 01-16-2011 10-13-2021 Chronic Residual codes; unclassified (6 sources) Restlessness and agitation; Translations: [Restlessness and agitation] 12-12-2021 Chronic Residual codes; unclassified (3 sources) Deliberate self-cutting; Translations: [Other problems related to lifestyle] 12-26-2022 Episodic Screening and history of mental health and substance abuse codes (6 sources) Antisocial behavior; Translations: [Antisocial behavior] 10-23-2021 Episodic Skin and subcutaneous tissue infections (1 source) Infection of skin; Translations: [Local infection of the skin and subcutaneous tissue, unspecified] 04-13-2024 Episodic Suicide and intentional self-inflicted injury (11 sources) Suicidal thoughts; Translations: [Suicidal ideations] Onset: 09-12-2021 Resolved: 01-10-2022 01-10-2022 Episodic Superficial injury; contusion (6 sources) Contusion of hand; Translations: [Contusion of [...] Test Name Value Interpretation Reference Range Facility Emergency Department Summary on 03-17-2025 Emergency Department Summary [facility] Medical Records Department [address] [place] [id number] Emergency Department Summary 03/17/25 MR#: [id number] Acct: [id number] Name: MANNY MCNALLY Rep #: [id number] : 2005 19 From: Adebayo Tapia DO PCP: Dr. Sallie Solorzano MD Status:DEP ER Location: ED HPI History of Present Illness Chief Complaint: Laceration Informant: patient and friend Narrative Narrative: Patient is a 19-year-old male with past medical history of anxiety depression and ADHD. He states that the only coping mechanism that works for him is cutting. He states he has been to multiple mental health hospital secondary to this without any improvement in his symptoms. He states this evening he became very worked up and in order to help relieve his stress he cut his right forearm. He reports he is left-hand dominant. He states that one of the cuts went a little too deep and he has had brisk bleeding which concerns him and therefore he was brought in with need for potential sutures. He denies numbness tingling or weakness. He denies homicidal or suicidal ideation. He denies history of bleeding disorder or blood thinner use [facility] Medical History Oppositional defiant disorder High-functioning autism spectrum disorder ADHD Anxiety Depression Home Medications ???Medication ???Instructions ???Recorded ???Last Taken ???Type lurasidone 60 mg tablet (Latuda) 80 mg PO 1600 12/03/21 Unknown His tory methylphenidate HCl 40 mg biphasic 40 mg PO DAILY 12/26/22 Unknown History 30-70 capsule,extended release trazodone 50 mg tablet 50 mg PO QHS 03/17/25 Unknown Hist ory Allergy/AdvReac Type Severity Reaction Status Date / Time No Known Allergies Allergy Verified 03/17/25 02:15 Social History Smoking Status: Current every day smoker tobacco type: cigarettes substance use type: does not use ROS ROS ED Constitutional Constitutional ED: Denies chills or fever(s) ENT ENT ED: Denies sore throat Cardiovascular Cardiovascular: Denies chest pain Respiratory/Chest Respiratory/Chest: Denies cough or dyspnea Gastrointestinal Gastrointestinal: Denies abdominal pain, diarrhea, nausea or vomiting Musculoskeletal Musculoskeletal: Reports other Details: Positive right forearm pain Integumentary Reports other Details: Positive right forearm laceration Neurologic Neurologic: Denies headache(s), paresthesias or weakness Psychiatric Psychiatric: Denies suicidal ideation or suicidal thoughts Hematologic/Lymphatic Hematologic/Lymphatic: Denies easy bleeding or easy bruising EXAM Physical Exam Const Vital Signs: 03/17/25 02:16 Temperature 98.3 F Temperature Source Oral Pulse Rate 120 H Respiratory Rate 18 Blood Pressure 141/87 H Blood Pressure Mean 105 Pulse Ox 97 Oxygen Delivery Method Room Air Positive well nourished, well developed and obese General Appearance ED: well developed Nutritional Appearance: obese HEENT HEENT Narrative: Normocephalic atraumatic Eyes PERRL and EOMs intact bilaterally General Eye ED: Negative for scleral icterus Neck supple Resp normal respiratory effort and clear to auscultation bilaterally Cardio regular rate and regular rhythm Extremity Extremity Narrative: Right upper extremity is neurovascularly intact; AIN/PIN are intact and normal. Patient has multiple linear abrasions/lacerations to the volar aspect of his right forearm consistent with history of deliberate self cutting. Around the mid portion of the right forearm is a linear 5 cm laceration that is subcutaneous layer deep with small superficial arterial bleed. No retained foreign body. No secondary findings of infection Compartments are soft and compressible going against compartment syndrome Remainder of the exam is normal. Neuro oriented x3, CN's II-XII intact bilaterally and no sensory deficits noted Sensorium / Orientation: alert Motor Exam: strength 5/5 throughout Psych mental status grossly normal Psych Narrative: No homicidal or suicidal ideation Skin Skin Narrative: Laceration and superficial abrasions to the right forearm consistent with deliberate self cutting as documented above MDM MDM MDM Narrative Medical decision making narrative: Patient presented to the ER after deliberate self cutting. He states this is the only coping mechanism that works for him and he reports he was cutting simply to cope and not in an attempt to hurt himself. At this time as he denies any homicidal or suicidal ideation behind the cutting and states it was simply a coping mechanism there is no need for a psychiatric evaluation or workup. The patient does not have findings of soft tissue infectio (more content not included)... Normal [facility] Absolute lymphocyte countOrd ered By: Marek Booker on 01-02-2025 Lymphocytes Auto (Unsp spec) [#/Vol] 1.21 10*3/uL 0.83-4.51 [facility] Absolute neutrophil countOrd ered By: Marek Booker on 01-02-2025 Neutrophils (Bld) [#/Vol] 5.3 10*3/uL 2.0-7.7 [facility] Alcohol, Blood (Medical)-Ser umon 01-02-2025 SERUM ETOH < 10.1 Normal <=10.0 [facility] Comment on above: Result Comment: This test is for medical purposes only. The legal definition of intoxication varies according to local law. Performed By: #### L 100.0100, L505.5000, L501.9100, L500.2500 #### [facility] [address] [place], [address] Amphetamine detection with 1 000 ng/mL as cutoffOrdered By: Marek Booker on 01-02-2025 Amphetamines Screen method >1000 ng/mL Ql (U) Negative < 200 ng/mL [facility] Anion gap in Serum or Plasma Ordered By: Marek Booker on 01-02-2025 Anion gap [Moles/Vol] 16 mmol/L High 5-15 [facility] Automated lymphocyte count a s percentage of total leukocytesOrdered By: Marek Booker on 01-02-2025 Lymphocytes/100 WBC Auto (Unsp spec) 16.1 % Low - [facility] BUN/creatinine ratioOrdered By: Marek Booker on 01-02-2025 Urea nitrogen/Creatinine [Mass ratio] 11.6 mg/mg - [facility] Basic Metabolic Profile (BMP )on 01-02-2025 BUN/CRE 11.6 RATIO Normal 06-22 [facility] Comment on above: Performed By: #### L 100.0100, L505.5000, L501.9100, L500.2500 #### [facility] [address] [place], [place], [id number] GFR/1.73 sq M.predicted among non-blacks MDRD (S/P/Bld) [Vol rate/Area] 135 mL/min/{1.73_m2} Normal >60 [facility] Comment on above: Result Comment: mL/m in/1.73m2 CKD-EPI Creatinine Equation (2020) Performed By: #### L 100.0100, L505.5000, L501.9100, L500.2500 #### [facility] [address] [place], [address] Urea nitrogen [Mass/Vol] 8 mg/dL Normal - [facility] Comment on above: Performed By: #### L 100.0100, L505.5000, L501.9100, L500.2500 #### [facility] [address] [place], [address] Basophil percentageOrdered B y: Marek Booker on 01-02-2024 Basophils/100 WBC (Bld) 0.4 % 0-1 [facility] CBC W/Diff, Automatedon Absolute Lymph 1.21 X10 3/uL Normal 0.83-4.51 [facility] Comment on above: Performed By: #### L 100.0100, L505.5000, L501.9100, L500.2500 #### [facility] [address] [place], [address] Absolute Neut 5.3 X10 3/uL Normal 2.0-7.7 [facility] Comment on above: Performed By: #### L 100.0100, L505.5000, L501.9100, L500.2500 #### [facility] [address] [place], [address] Basophils/100 WBC (Bld) 0.4 % Normal 0-1 [facility] Comment on above: Performed By: #### L 100.0100, L505.5000, L501.9100, L500.2500 #### [facility] [address] [place], [address] Eosinophils/100 WBC (Bld) 0.3 % Normal 0-5 [facility] Comment on above: Performed By: #### L 100.0100, L505.5000, L501.9100, L500.2500 #### [facility] [address] [place], [address] Erythrocyte distribution width (RBC) [Ratio] 12.5 % Normal 11.6-14.6 [facility] Comment on above: Performed By: #### L 100.0100, L505.5000, L501.9100, L500.2500 #### [facility] [address] [place], [address] Hematocrit (Bld) [Volume fraction] 45.7 % Normal 40-54 [facility] Comment on above: Performed By: #### L 100.0100, L505.5000, L501.9100, L500.2500 #### [facility] [address] [place], [address] Hemoglobin (Bld) [Mass/Vol] 16.2 g/dL Normal 13.0-16.5 [facility] Comment on above: Performed By: #### L 100.0100, L505.5000, L501.9100, L500.2500 #### [facility] [address] [place], [address] IG% 0.400 Normal 0.0-0.9 [facility] Comment on above: Result Comment: IG% - Immature Granulocytes (promyelocytes, myelocytes and metamyelocytes) > 1% indicates that a LEFT SHIFT is Present. Performed By: #### L 100.0100, L505.5000, L501.9100, L500.2500 #### [facility] [address] [place], [address] Lymphocytes/100 WBC (Bld) 16.1 % Low 19-41 [facility] Comment on above: Performed By: #### L 100.0100, L505.5000, L501.9100, L500.2500 #### [facility] [address] [place], [address] MCH (RBC) [Entitic mass] 29.1 pg Normal 27.0-32.0 [facility] Comment on above: Performed By: #### L 100.0100, L505.5000, L501.9100, L500.2500 #### [facility] [address] [place], [address] MCHC (RBC) [Mass/Vol] 35.4 g/dL Normal 32-36 [facility] Comment on above: Performed By: #### L 100.0100, L505.5000, L501.9100, L500.2500 #### [facility] [address] [place], [address] MCV (RBC) [Entitic vol] 82.2 fL Normal 80-94 [facility] Comment on above: Performed By: #### L 100.0100, L505.5000, L501.9100, L500.2500 #### [facility] [address] [place], [address] Monocytes/100 WBC (Bld) 11.7 % High 0-10 [facility] Comment on above: Performed By: #### L 100.0100, L505.5000, L501.9100, L500.2500 #### [facility] [address] [place], [address] Neutrophils/100 WBC (Bld) 71.1 % High 47-70 [facility] Comment on above: Performed By: #### L 100.0100, L505.5000, L501.9100, L500.2500 #### [facility] [address] [place], [address] Nucleated RBC (Bld) [#/Vol] 0 10*3/uL Normal 0-5 [facility] Comment on above: Performed By: #### L 100.0100, L505.5000, L501.9100, L500.2500 #### [facility] [address] [place], [address] Platelet mean volume (Bld) [Entitic vol] 10.2 fL Normal 6.2-12.0 [facility] Comment on above: Performed By: #### L 100.0100, L505.5000, L501.9100, L500.2500 #### [facility] [address] [place], [address] Platelets (Bld) [#/Vol] 249 10*3/uL Normal 150-450 [facility] Comment on above: Performed By: #### L 100.0100, L505.5000, L501.9100, L500.2500 #### [facility] [address] [place], [address] RBC (Bld) [#/Vol] 5.56 10*6/uL Normal 4.6-6.2 [facility] Comment on above: Performed By: #### L 100.0100, L505.5000, L501.9100, L500.2500 #### [facility] [address] [place], [address] RDW SD 37.6 fl Normal 35.1-43.9 [facility] Comment on above: Performed By: #### L 100.0100, L505.5000, L501.9100, L500.2500 #### [facility] [address] [place], [address] WBC (Bld) [#/Vol] 7.5 10*3/uL Normal 4.4-11.0 [facility] Comment on above: Performed By: #### L 100.0100, L505.5000, L501.9100, L500.2500 #### [facility] [address] [place], [address] Carbon dioxide, total [Moles /volume] in Central venous bloodOrdered By: Marek Booker on 01-02-2025 CO2 [Moles/Vol] 20.0 mmol/L Low 21.0-32.0 [facility] Chloride assayOrdered By: Pop Booker on 01-02-2025 Chloride [Moles/Vol] 104 mmol/L 98-108 [facility] Emergency Department Summary on 01-02-2025 Emergency Department Summary [facility] Medical Records Department [address] [place] [address] Emergency Department Summary 01/02/25 MR#: [id number] Acct: [id number] Name: DALIMANNYMICHAEL MAR Rep #: [id number] : 2005 19 From: Marek Booker DO [...] that he is just angry and frustrated. [facility] Medical History Oppositional defiant disorder High-functioning [...] follow commands knew that he was at [facility] year is 2024 Skin: Warm, dry, intact [...] working on placement. Patient was accepted to [facility] by Dr. Magallanes. Lab Data Labs: Laboratory Results - last 24 hr 01/02/25 01/02/25 17:42 17:50 WBC 7.5 RBC 5.56 Hgb 16.2 Hct 45.7 MCV 82.2 MCH 29.1 MCHC 35.4 RDW Std Deviation 37.6 RDW Coeff of Autumn 12.5 Plt Count 249 MPV 10.2 Immature Gran % (Auto) 0.400 Neut % (Auto) 71.1 H Lymph % (Auto) 16.[address] % (Auto) 11.7 H Eos % (Auto) [...] (more content not included)... Normal [facility] Eosinophil percentageOrdered By: Marek Booker on 01-02-2025 Eosinophils/100 WBC (Bld) 0.3 % 0-5 [facility] Erythrocyte distribution wid th ratioOrdered By: Marek Booker on 01-02-2025 Erythrocyte distribution width (RBC) [Ratio] 12.5 % 11.6-14.6 [facility] Erythrocyte distribution wid th standard deviationOrdered By: Marek Booker on 01-02-2025 Erythrocyte distribution width (RBC) [Ratio] 37.6 fl 35.1-43.9 [facility] Glomerular filtration rate ( GFR) estimation/1.73 sq m using serum, plasma, or whole bOrdered By: Marek Booker on 01-02-2025 GFR/1.73 sq M.predicted among non-blacks MDRD (S/P/Bld) [Vol rate/Area] 135 mL/min/{1.73_m2} >60 [facility] Comment on above: mL/min/1.73m2 CKD-EP I Creatinine Equation (2020) Hematocrit Auto (Bld) [Volum e fraction]Ordered By: Marek Booker on 01-02-2025 Hematocrit (Bld) [Volume fraction] 45.7 % 40-54 [facility] Hemoglobin measurementOrdere d By: Marek Booker on 01-02-2025 Hemoglobin (Bld) [Mass/Vol] 16.2 g/dL 13.0-16.5 [facility] Immature granulocytes/100 WB C Auto (Bld)Ordered By: Marek Bookre on 01-02-2025 Immature granulocytes/100 WBC (Bld) 0.400 % 0.0-0.9 [facility] Comment on above: IG% - Immature Granu locytes (promyelocytes, myelocytes and metamyelocytes) > 1% indicates that a LEFT SHIFT is Present. MCV (mean corpuscular volume ) determinationOrdered By: Marek Booker on 01-02-2025 MCV (RBC) [Entitic vol] 82.2 fL 80-94 [facility] Mean corpuscular hemoglobin (MCH) determinationOrdered By: Marek Booker on 01-02-2025 MCH (RBC) [Entitic mass] 29.1 pg 27.0-32.0 [facility] Mean corpuscular hemoglobin concentration (MCHC) determinationOrdered By: Marek Booker on 01-02-2025 MCHC (RBC) [Mass/Vol] 35.4 g/dL 32-36 [facility] Mean platelet volume determi nationOrdered By: Marek Booker on 01-02-2025 Platelet mean volume (Bld) [Entitic vol] 10.2 fL 6.2-12.0 [facility] Monocyte percentageOrdered B y: Marek Booker on 01-02-2025 Monocytes/100 WBC (Bld) 11.7 % High 0-10 [facility] Neutrophil percentageOrdered By: Marek Booker on 01-02-2025 Neutrophils/100 WBC (Bld) 71.1 % High 47-70 [facility] No Panel InformationOrdered By: Marek Booker on 01-02-2025 Urine Buprenorphine Qualitative Negative < 200 ng/mL [facility] Urine Oxycodone Screen Negative < 100 ng/mL [facility] Nucleated red blood cell per centageOrdered By: Marek Booker on 01-02-2025 Nucleated RBC/100 WBC (Bld) [Ratio] 0 % 0-5 [facility] Platelet countOrdered By: Pop Booker on 01-02-2025 Platelets (Bld) [#/Vol] 249 10*3/uL 150-450 [facility] Potassium measurement (mass/ volume)Ordered By: Marek Booker on 01-02-2025 Potassium (Unsp spec) [Mass/Vol] 3.7 mmol/L 3.3-5.1 [facility] Quantitative urine opiates m easurementOrdered By: Marek Booker on 01-02-2025 Opiates Ql (U) Negative < 300 ng/mL [facility] RBC Auto (Bld) [#/Vol]Ordere d By: Marek Booker on 01-02-2025 RBC (Bld) [#/Vol] 5.56 10*6/uL 4.6-6.2 [facility] Screening urine fentanyl jose surementOrdered By: Marek Booker on 01-02-2025 fentaNYL Screen Ql (U) Negative [facility] Serum creatinine measurement (mass/volume)Ordered By: Marek Booker on 01-02-2025 Creatinine [Mass/Vol] 0.72 mg/dL 0.70-1.20 [facility] Serum glucose measurement (m ass/volume)Ordered By: Marek Booker on 01-02-2025 Glucose [Mass/Vol] 103 mg/dL High 70-99 [facility] Serum or plasma calcium rhona urement (mass/volume)Ordered By: Marek Booker on 01-02-2025 Calcium [Mass/Vol] 9.5 mg/dL 7.6-11.0 [facility] Serum or plasma ethanol rhona urement (mass/volume)Ordered By: Marek Booker on 01-02-2025 Ethanol [Mass/Vol] mg/dL <10.1 [facility] Comment on above: This test is for med ical purposes only. The legal definition of intoxication varies according to local law. Serum or plasma urea nitroge n measurement (mass/volume)Ordered By: Marek Booker on 01-02-2025 Urea nitrogen [Mass/Vol] 8 mg/dL 4-19 [facility] Sodium levelOrdered By: Tiarra Booker on 01-02-2025 Sodium [Moles/Vol] 140 mmol/L 133-145 [facility] Urine Drug Screen (VISTA)on 01-02-2025 AMPHETAMINES Negative Normal <1000 ng/mL [facility] Comment on above: Performed By: #### L 100.0100, L505.5000, L501.9100, L500.2500 #### [facility] [address] [place], [address] BARBITIURATES Negative Normal < 200 ng/mL [facility] Comment on above: Performed By: #### L 100.0100, L505.5000, L501.9100, L500.2500 #### [facility] [address] [place], [address] BENZODIAZIPINE Negative Normal < 200 ng/mL [facility] Comment on above: Performed By: #### L 100.0100, L505.5000, L501.9100, L500.2500 #### [facility] [address] [place], [address] BUP Ur Drug Scr Negative Normal < 200 ng/mL [facility] Comment on above: Performed By: #### L 100.0100, L505.5000, L501.9100, L500.2500 #### [facility] [address] [place], [address] COCAINE Negative Normal < 300 ng/mL [facility] Comment on above: Performed By: #### L 100.0100, L505.5000, L501.9100, L500.2500 #### [facility] [address] [place], [address] Fentanyl Negative Normal [facility] Comment on above: Performed By: #### L 100.0100, L505.5000, L501.9100, L500.2500 #### [facility] [address] [place], [address] METHADONE Negative Normal < 300 ng/mL [facility] Comment on above: Performed By: #### L 100.0100, L505.5000, L501.9100, L500.2500 #### [facility] [address] [place], [address] OPIATES Negative Normal < 300 ng/mL [facility] Comment on above: Performed By: #### L 100.0100, L505.5000, L501.9100, L500.2500 #### [facility] [address] [place], [address] OXYCODONE Negative Normal < 100 ng/mL [facility] Comment on above: Performed By: #### L 100.0100, L505.5000, L501.9100, L500.2500 #### [facility] [address] [place], [place], [address] PCP Negative Normal < 25 ng/mL [facility] Comment on above: Performed By: #### L 100.0100, L505.5000, L501.9100, L500.2500 #### [facility] [address] [place], [place], [address] THC Positive Normal < 50 ng/mL [facility] Comment on above: Result Comment: If c onfirmation testing is needed, a separate order will be required to send out testing to the reference laboratory. Performed By: #### L 100.0100, L505.5000, L501.9100, L500.2500 #### [facility] [address] [place], [address] Urine benzodiazepine levelOr dered By: Marek Booker on 01-02-2025 Benzodiazepines Ql (U) Negative < 200 ng/mL [facility] Urine cocaine levelOrdered B y: Marek Booker on 01-02-2025 Cocaine Ql (U) Negative < 300 ng/mL [facility] Urine dzbue-9-abxgicutiigiin abinol (THC) measurementOrdered By: Marek Booker on 01-02-2025 Cannabinoids Screen Ql (U) Positive < 50 ng/mL [facility] Comment on above: If confirmation test ing is needed, a separate order will be required to send out testing to the reference laboratory. Urine phencyclidine (PCP) de tectionOrdered By: Marek Booker on 01-02-2025 Phencyclidine Ql (U) Negative < 25 ng/mL [facility] White blood cell (WBC) count Ordered By: aMrek Booker on 01-02-2025 WBC (Bld) [#/Vol] 7.5 10*3/uL 4.4-11.0 [facility] Progress Noteon 08-20-2024 Film Flat Inspector Authentication Interface Message Text Manny Mcnally is [...] (like other illegal drugs, pills, prescription or hmyn-qrz-xfaoaky medications, and things that you sniff, maravilla, [...] With Score - Health Risk Assessment - [place] Need for vaccination - Influenza Vaccine 0.5 [...] recheck in office Subjective HPI 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 History of SI's- friends and family are close if problems. No SI's today Stomach issues persistent- random vomiting diarrhea all the time stomach upset when eats Gets a lot of mucous drainage He is unaccompanied. 18 YEAR WELL CHILD Education: Manny (more content not included)... [facility] Progress Noteon 08-14-2024 Film Flat Inspector Authentication Interface Message Text This is a [...] Level Low Acute Risk: History of past uastep-fo-as- or suicidal thoughts;Protective factors outweigh risk factors [...] Attempt Date: Actual Lethality/Medical Damage: Potential Lethality: [email or web address] VITAL SIGNS & MENTAL STATUS [...] of Knowle (more content not included)... Normal [facility] Progress Noteon 04-25-2024 Film Flat Inspector Authentication Interface Message Text This is a [...] Level Low Acute Risk: History of past etwsvc-xr-hu- or suicidal thoughts;Protective factors outweigh risk factors [...] Attempt Date: Actual Lethality/Medical Damage: Potential Lethality: [email or web address] VITAL SIGNS & MENTAL STATUS EXAM [...] no attendance (more content not included)... Normal [facility] CNOVon 04-13-2024 CNOV Office Visit (UCWSTR ) -------- MANNY MCNALLY ([id number]) 5 M Date Time Provider Department 04/13/24 2:00 PM CHRISTOS OROZCO [facility] During your visit today, we recorded the following information about you: Temperature Pulse Respiration Blood pressure 98.1 degrees 65/minute 16/minute 132/84 Weight 124.6 kg Christos Orozco PA 04/13/2024 2:11 PM Signed This note was created using [employer]. Subjective Manny Mcnally is a 18 year [...] for 7 (more content not included)... Normal [facility] Progress Noteon 02-12-2024 Film Flat Inspector Authentication Interface Message Text This is a [...] Level Low Acute Risk: History of past bqjtyi-xe-dc- or suicidal thoughts;Protective factors outweigh risk factors [...] Attempt Date: Actual Lethality/Medical Damage: Potential Lethality: [email or web address] VITAL SIGNS & MENTAL STATUS EXAM Wt Readings from Last 3 Encounters: 10/08/23 (!) 120.7 kg (>99%, Z= 2.71)* 01/22/23 (!) 136.2 kg (>99%, Z= 3.19)* 12/25/22 (!) 137 kg (>99%, Z= 3.22)* * Growth percentiles are based on [facility] (Boys, 2-20 Years) data. Temp Readings from [...] appears av (more content not included)... Normal [facility] Progress Noteon 12-27-2023 Film Flat Inspector Authentication Interface Message Text This is a telemedicine video visit requested by the patient that was performed with the patient's location at [facility] and the provider's location at home/office. [...] Level Low Acute Risk: History of past whpqqx-eg-ak- or suicidal thoughts;Protective factors outweigh risk factors [...] Attempt Date: Actual Lethality/Medical Damage: Potential Lethality: [email or web address] VITAL SIGNS & MENTAL STATUS EXAM Wt Readings from Last 3 Encounters: 10/08/23 (!) 120.7 kg (>99%, Z= 2.71)* 01/22/23 (!) 136.2 kg (>99%, Z= 3.19)* 12/25/22 (!) 137 kg (>99%, Z= 3.22)* * Growth percentiles are based on [facility] (Boys, 2-20 Years) data. Temp Readings from [...] therapy: Yes (more content not included)... Normal [facility] Progress Noteon 11-29-2023 Film Flat Inspector Authentication Interface Message Text This is a [...] Level Low Acute Risk: History of past jyuoaf-ef-rj- or suicidal thoughts;Protective factors outweigh risk factors [...] Attempt Date: Actual Lethality/Medical Damage: Potential Lethality: [email or web address] VITAL SIGNS & MENTAL STATUS EXAM Wt Readings from Last 3 Encounters: 10/08/23 (!) 120.7 kg (>99%, Z= 2.71)* 01/22/23 (!) 136.2 kg (>99%, Z= 3.19)* 12/25/22 (!) 137 kg (>99%, Z= 3.22)* * Growth percentiles are based on [facility] (Boys, 2-20 Years) data. Temp Readings from [...] Patient denie (more content not included)... Normal [facility] Progress Noteon 09-20-2023 Film Flat Inspector Authentication Interface Message Text This is a telemedicine video visit requested by the patient/guardian that was performed with the patient's location at home and the provider's location at home or hospital office. CHILD PSYCHIATRY OUTPATIENT PROGRESS NOTE DATE OF SERVICE: 09/20/2023 PRESENT AT SESSION: Patient, guardian(s); Nurse; Master Plumber REASON FOR VISIT: Medication management Any information [...] and mood have improved - information from national sales consultant. Patient can have headaches. Patient can have headaches throughout the day. No safety, appetite or sleep concerns. RISK ASSESSMENT Current Risk Level Low Acute Risk: History of past qfjamw-ox-mz- or suicidal thoughts;Protective factors outweigh risk factors [...] Attempt Date: Actual Lethality/Medical Damage: Potential Lethality: [email or web address] VITAL SIGNS & MENTAL STATUS EXAM Wt Readings from Last 3 Encounters: 01/22/23 (!) 136.2 kg (>99 %, Z= 3.19)* 12/25/22 (!) 137 kg (>99 %, Z= 3.22)* 09/14/22 (!) 135.6 kg (>99 %, Z= 3.25)* * Growth percentiles are based on [facility] (Boys, 2-20 Years) data. Temp Readings from [...] denied ref (more content not included)... Normal [facility] CBC W Auto Differential pane l (Bld)on 08-15-2023 Basophils (Bld) [#/Vol] 0.04 10*3/uL Normal <=0.70 [facility] Comment on above: Performed By: #### 5 7021-8 #### [facility] [address] [place] [address] [employer]el Technology Instructor - Demetra CORTEZ [id number] Basophils/100 WBC (Bld) 0.5 % Normal <=2.0 [facility] Comment on above: Performed By: #### 5 7021-8 #### [facility] [address] [place] [address] [employer]el Technology Instructor - Demetra LYLESIA [id number] Eosinophils (Bld) [#/Vol] 0.08 10*3/uL Normal <=0.70 [facility] Comment on above: Performed By: #### 5 7021-8 #### [address] [place] [address] [employer] Instructor - Demetra Daniel CLIA [id number] Eosinophils/100 WBC (Bld) 1.0 % Normal <=10.0 [facility] Comment on above: Performed By: #### 5 7021-8 #### [address] Director - Demetra LYLESIA [id number] Erythrocyte distribution width (RBC) [Entitic vol] 40.0 fL Normal 35.1-43.9 [facility] Comment on above: Performed By: #### 5 7021-8 #### [address] [place] [address] [employer]el Technology Instructor - Demetra Daniel CLIA [id number] Hematocrit (Bld) [Volume fraction] 46.2 % Normal 40.0-54.0 [facility] Comment on above: Performed By: #### 5 7021-8 #### [address] [place] [address] [employer]el Technology Instructor - Demetra LYLESIA [id number] Hemoglobin (Bld) [Mass/Vol] 16.0 g/dL Normal 14.0-18.0 [facility] Comment on above: Performed By: #### 5 7021-8 #### [address] [place] [address] [employer]el Technology Instructor - Demetra Daniel CLIA [id number] Immature granulocytes (Bld) [#/Vol] 0.03 10*3/uL Normal <=0.10 [facility] Comment on above: Performed By: #### 5 7021-8 #### [address] [place] [address] [employer]el Technology Instructor - Demetra Daniel CLIA [id number] Immature granulocytes/100 WBC (Bld) 0.40 % Normal <=1.50 [facility] Comment on above: Performed By: #### 5 7021-8 #### [address] [place] [address] [employer]el Technology Instructor - Demetra LYLESIA [id number] Lymphocytes (Bld) [#/Vol] 2.14 10*3/uL Normal 1.20-3.40 [facility] Comment on above: Performed By: #### 5 7021-8 #### [address] [place] [address] [employer]el Technology Instructor - Demetra LYLESIA [id number] Lymphocytes/100 WBC (Bld) 26.7 % Normal 20.0-40.0 [facility] Comment on above: Performed By: #### 5 7021-8 #### [place] [address] [employer] Instructor - Demetra LYLESIA [id number] MCH (RBC) [Entitic mass] 28.4 pg Normal 27.0-31.0 [facility] Comment on above: Performed By: #### 5 7021-8 #### [place] [address] [employer] Instructor - Demetra LYLESIA [id number] MCHC (RBC) [Mass/Vol] 34.6 g/dL Normal 32.0-36.0 [facility] Comment on above: Performed By: #### 5 7021-8 #### [address] [place] [address] [employer]el Technology Instructor - Demetra LYLESIA [id number] MCV (RBC) [Entitic vol] 81.9 fL Normal 80.0-100.0 [facility] Comment on above: Performed By: #### 5 7021-8 #### [address] [place] [address] [employer]el Technology Instructor - Demetra LYLESIA [id number] Monocytes (Bld) [#/Vol] 0.58 10*3/uL Normal 0.10-0.60 [facility] Comment on above: Performed By: #### 5 7021-8 #### [facility] [address] [place] [address] [employer]el Technology Instructor - Demetra Daniel CLIA [id number] Monocytes/100 WBC (Bld) 7.2 % Normal <=8.0 [facility] Comment on above: Performed By: #### 5 7021-8 #### [place] [address] [place] [address] [employer]el Technology Instructor - Demetra Dainel CLIA [id number] Neutrophils (Bld) [#/Vol] 5.14 10*3/uL Normal 1.40-6.50 [facility] Comment on above: Performed By: #### 5 7021-8 #### [place] [address] [place] [address] [employer]el Technology Instructor - Demetra LYLESIA [id number] Neutrophils/100 WBC (Bld) 64.2 % Normal 50.0-70.0 [facility] Comment on above: Performed By: #### 5 7021-8 #### [place] [address] [place] [address] [employer]el Technology Instructor - Demetra LYLESIA [id number] Nucleated RBC (Bld) [#/Vol] 0.00 10*3/uL Normal <=0.10 [facility] Comment on above: Performed By: #### 5 7021-8 #### [address] [place] [address] [employer] Technology Instructor - Demetra Daniel CLIA [id number] Platelet mean volume (Bld) [Entitic vol] 9.9 fL Normal 9.0-13.0 [facility] Comment on above: Performed By: #### 5 7021-8 #### [place] [address] [place] [address] [employer]el Technology Instructor - Demetra Daniel CLIA [id number] Platelets (Bld) [#/Vol] 304 10*3/uL Normal 130-400 [facility] Comment on above: Performed By: #### 5 7021-8 #### [place] [address] [place] [address] [employer]el Technology Instructor - Demetra CORTEZ [id number] RBC (Bld) [#/Vol] 5.64 10*6/uL Normal 4.00-6.30 [facility] Comment on above: Performed By: #### 5 7021-8 #### [facility] [address] [place] [address] [employer]el Technology Instructor - Demetra CORTEZ [id number] WBC (Bld) [#/Vol] 8.01 10*3/uL Normal 4.80-10.80 [facility] Comment on above: Performed By: #### 5 7021-8 #### [facility] [address] [place] [address] [employer]el Technology Instructor - Demetra CORTEZ [id number] Comprehensive metabolic 2000 panelon 08-15-2023 Albumin [Mass/Vol] 4.6 g/dL Normal 3.4-5.0 [facility] Comment on above: Performed By: #### 1 1579-0 #### [facility] [address] [place] [address] [employer]el Technology Instructor - Demetra CORTEZ [id number] #### 29143-2 #### [facility] [address] [place] [address] [employer]el Technology Instructor - Demetra CORTEZ [id number] Performed for [facility] [address] [place] [address] ALP [Catalytic activity/Vol] 144 U/L High 50-136 [facility] Comment on above: Performed By: #### 1 1579-0 #### [facility] [address] [place] [address] [employer]el Technology Instructor - Demetra CORTEZ [id number] #### 05650-9 #### [facility] [address] [place] [address] [employer]el Technology Instructor - Demetra CORTEZ [id number] Performed for [facility] [address] [place] [address] ALT [Catalytic activity/Vol] 48 U/L Normal 16-63 [facility] Comment on above: Performed By: #### 1 1579-0 #### [facility] [address] [place] [address] [employer]el Technology Instructor - Demetra CORTEZ [id number] #### 48050-1 #### [facility] [address] [place] [address] [employer]el Technology Instructor - Demetra CORTEZ [id number] Performed for [facility] [address] [place] [address] Anion gap [Moles/Vol] 8.0 mmol/L Normal <=15.0 [facility] Comment on above: Performed By: #### 1 1579-0 #### [facility] [address] [place] [address] [employer]el Technology Instructor - Demetra CORTEZ [id number] #### 79780-3 #### [facility] [address] [place] [address] [employer]el Technology Instructor - Demetra CORTEZ [id number] Performed for [facility] [address] [place] [address] AST [Catalytic activity/Vol] 25 U/L Normal 15-37 [facility] Comment on above: Performed By: #### 1 1579-0 #### [facility] [address] [place] [address] [employer]el Technology Instructor - Demetra CORTEZ [id number] #### 10583-0 #### [facility] [address] [place] [address] [employer]el Technology Instructor - Demetra CORTEZ [id number] Performed for [facility] [address] [place] [address] Bilirubin [Mass/Vol] 0.7 mg/dL Normal 0.2-1.0 [facility] Comment on above: Performed By: #### 1 1579-0 #### [facility] [address] [place] [address] [employer]el Technology Instructor - Demetra CORTEZ [id number] #### 38422-0 #### [facility] [address] [place] [address] [employer]el Technology Instructor - Demetra CORTEZ [id number] Performed for [facility] [address] [place] [address] Calcium [Mass/Vol] 9.7 mg/dL Normal 8.5-10.1 [facility] Comment on above: Performed By: #### 1 1579-0 #### [facility] [address] [place] [address] [employer]el Technology Instructor - Demetra CORTEZ [id number] #### 82863-3 #### [facility] [address] [place] [address] [employer]el Technology Instructor - Demetra CORTEZ [id number] Performed for [facility] [address] [place] [address] Chloride [Moles/Vol] 104 mmol/L Normal 98-107 [facility] Comment on above: Performed By: #### 1 1579-0 #### [facility] [address] [place] [address] [employer]el Technology Instructor - Demetra CORTEZ [id number] #### 07580-9 #### [facility] [address] [place] [address] [employer]el Technology Instructor - Demetra CORTEZ [id number] Performed for [facility] [address] [place] [address] CO2 [Moles/Vol] 28 mmol/L Normal 21-32 [facility] Comment on above: Performed By: #### 1 1579-0 #### [facility] [address] [place] [address] [employer]el Technology Instructor - Demetra CORTEZ [id number] #### 19380-5 #### [facility] [address] [place] [address] [employer]el Technology Instructor - Demetra CORTEZ [id number] Performed for [facility] [address] [place] [address] Creatinine [Mass/Vol] 0.79 mg/dL Normal 0.67-1.17 [facility] Comment on above: Performed By: #### 1 1579-0 #### [facility] [address] [place] [address] [employer]el Technology Instructor - Demetra CORTEZ [id number] #### 86898-2 #### [facility] [address] [place] [address] [employer]el [employer] Instructor - Demetra CORTEZ [id number] Performed for [facility] [address] [place], [place] [address] GFR/1.73 sq M.predicted MDRD (S/P/Bld) [Vol rate/Area] Normal 59-N/A [facility] Comment on above: Performed By: #### 1 1579-0 #### [facility] [address] [place] [address] [employer]el Technology Instructor - Demetra CORTEZ [id number] #### 75144-4 #### [place] [address] [place] [address] [employer]el Technology Instructor - Demetra CORTEZ [id number] Performed for [facility] [address] [place] [address] Glucose [Mass/Vol] 104 mg/dL Normal 74-106 [facility] Comment on above: Performed By: #### 1 1579-0 #### [facility] [address] [place] [address] [employer]el Technology Instructor - Demetra CORTEZ [id number] #### 72087-6 #### [place] [address] [place] [address] [employer]el Technology Instructor - Demetra CORTEZ [id number] Performed for [facility] [address] [place] [address] HGFR GLOMERULAR FILTRATIO N RATE INTERPRETATION~The eGFR [...] months, with or without kidney damage.~ Normal [facility] Comment on above: Performed By: #### 1 1579-0 #### [facility] [address] [place] [address] [employer]el Technology Instructor - Demetra Fredy LYLESIA [id number] #### 18984-9 #### [facility] [address] [place] [address] [employer] Technology In[facility] RAFALIA [id number] Performed for [facility] [address] [place] [address] Potassium [Moles/Vol] 3.8 mmol/L Normal 3.5-5.1 [facility] Comment on above: Performed By: #### 1 1579-0 #### [facility] [address] [place] [address] [employer]el Technology Instructor - Demetra Fredy LYLESIA [id number] #### 23385-2 #### [facility] [address] [place] [address] [employer]el Technology Instructor - [facility] RAFALIA [id number] Performed for [facility] [address] [place] [address] Protein [Mass/Vol] 7.7 g/dL Normal 6.4-8.2 [facility] Comment on above: Performed By: #### 1 1579-0 #### [facility] [address] [place] [address] [employer] RAFALIA [id number] #### 37984-3 #### [facility] [address] [place] [address] [employer] Instructor [facility] [id number] Performed for [facility] [address] [place] [address] Sodium [Moles/Vol] 140 mmol/L Normal 136-145 [facility] Comment on above: Performed By: #### 1 1579-0 #### [facility] [address] [place] [address] [employer] Instructor - Demetra CORTEZ [id number] #### 78003-3 #### [facility] [address] [place] [address] [employer] Instructor - Demetra CORTEZ [id number] Performed for [facility] [address] [place] [address] Urea nitrogen [Mass/Vol] 10 mg/dL Normal 9-20 [facility] Comment on above: Performed By: #### 1 1579-0 #### [facility] [address] [place] [address] [employer] Instructor - Demetra CORTEZ [id number] #### 46405-7 #### [facility] [address] [place] [address] [employer] Instructor - Demetra CORTEZ [id number] Performed for [facility] [address] [place] [address] LITHIUMon 08-15-2023 [place] [Moles/Vol] 0.5 mmol/L Low 0.6-1.2 [facility] Comment on above: Performed By: #### 1 1579-0 #### [facility] [address] [place] [address] [employer] Instructor - Demetra CORTEZ [id number] #### 62954-7 #### [facility] [address] [place] [address] [employer] Instructor - [employer]etra CORTEZ [id number] Performed for [facility] [address] [place] [address] TSH DL <= 0.05 [facility]IU[facility] Qn 1.680 uIU/mL Normal 0.358-3.740 [facility] Comment on above: Performed By: #### 1 1579-0 #### [facility] [address] [place] [address] [employer] Instructor - Demetra CORTEZ [id number] #### 45465-9 #### [facility] [address] [place] [address] [employer] Instructor - Demetra CORTEZ [id number] Performed for [facility] [address] [place] [address] Urinalysis panel Auto (U)on 08-15-2023 Bacteria LM Ql (Urine sed) Normal TRACE [facility] Comment on above: Performed By: #### 5 0564-4 #### [facility] [address] [place] [address] [employer] Instructor - Demetra CORTEZ [id number] Performed for [facility] [address] [place] [address] Bilirubin (U) [Mass/Vol] Negative Normal NEGATIVE [facility] Comment on above: Performed By: #### 5 0564-4 #### [facility] [address] [place] [address] [employer] Instructor - Demetra OCRTEZ [id number] Performed for [facility] [address] [place] [address] Clarity (U) CLEAR Normal CLEAR [facility] Comment on above: Performed By: #### 5 0564-4 #### [facility] [address] [place] [address] [employer] Instructor - [employer]etra CORTEZ [id number] Performed for [facility] [address] [place] [address] Color (U) YELLOW Normal YELLOW [facility] Comment on above: Performed By: #### 5 0564-4 #### [facility] [address] [place] [address] [employer] Instructor - Demetra CORTEZ [id number] Performed for [facility] [address] [place] [address] Glucose Test strip (U) [Mass/Vol] Negative Normal NEGATIVE [facility] Comment on above: Performed By: #### 5 0564-4 #### [facility] [address] [place] [address] [employer] Instructor - Demetra CORTEZ [id number] Performed for [facility] [address] [place], [place] [address] HMICRO MICROSCOPIC Normal [facility] Comment on above: Performed By: #### 5 0564-4 #### [facility] [address] [place], [place] [address] [employer] Instructor - Demetra CORTEZ [id number] Performed for [facility] [address] [place], [place] [address] Hyaline casts (Urine sed) [#/Area] Normal 0-8 [facility] Comment on above: Performed By: #### 5 0564-4 #### [facility] [address] [place], [place] [address] [employer] Instructor - Demetra CORTEZ [id number] Performed for [facility] [address] [place], [place] [address] Ketones (U) [Mass/Vol] TRACE Abnormal NEGATIVE [facility] Comment on above: Performed By: #### 5 0564-4 #### [facility] [address] [place] [address] [employer] Instructor - Demetra CORTEZ [id number] Performed for [facility] [address] [place], [place] [address] Leukocyte esterase Qn (U) Negative Normal TRACE [facility] Comment on above: Performed By: #### 5 0564-4 #### [facility] [address] [place], [place] [address] [employer] Instructor - Demetra CORTEZ [id number] Performed for [facility] [address] [place], [place] [address] Nitrite Ql (U) Negative Normal NEGATIVE [facility] Comment on above: Performed By: #### 5 0564-4 #### [facility] [address] [place], [place] [address] [employer] Instructor - Demetra CORTEZ [id number] Performed for [facility] [address] [place], [place] [address] pH (U) 6.5 [pH] Normal 5.5-7.5 [facility] Comment on above: Performed By: #### 5 0564-4 #### [facility] [address] [place] [address] [employer] Instructor - Demetra CORTEZ [id number] Performed for [facility] [address] [place], [place] [address] Protein (U) [Mass/Vol] Negative Normal NEGATIVE [facility] Comment on above: Performed By: #### 5 0564-4 #### [facility] [address] [place] [address] [employer] Instructor - Demetra CORTEZ [id number] Performed for [facility] [address] [place], [place] [address] RBC (U) [#/Vol] Negative Normal NEGATIVE [facility] Comment on above: Performed By: #### 5 0564-4 #### [facility] [address] [place] [address] [employer] Instructor - Demetra CORTEZ [id number] Performed for [facility] [address] [place], [place] [address] RBC LM.HPF (Urine sed) [#/Area] Normal 0-4 [facility] Comment on above: Performed By: #### 5 0564-4 #### [facility] [address] [place] [address] [employer] Instructor - Demetra CORTEZ [id number] Performed for [facility] [address] [place], [place] [address] Specific gravity (U) [Rel density] 1.023 Normal 1.010-1.035 [facility] Comment on above: Performed By: #### 5 0564-4 #### [facility] [address] [place] [address] [employer] Instructor - Demetra CORTEZ [id number] Performed for [facility] [address] [place], [place] [address] SQUAMOUS EPITHELIALS Normal 0-5 [facility] Comment on above: Performed By: #### 5 0564-4 #### [facility] [address] [place] [address] [employer] Instructor - Demetra CORTEZ [id number] Performed for [facility] [address] [place], [place] [address] Urobilinogen Qn (U) 0.2 {Trevon'U}/dL Normal <=1.0 [facility] Comment on above: Performed By: #### 5 0564-4 #### [facility] [address] [place] [address] [employer] Instructor - Demetra COTREZ [id number] Performed for [facility] [address] [place], [place] [address] WBC LM.HPF (Urine sed) [#/Area] Normal 0-5 [facility] Comment on above: Performed By: #### 5 0564-4 #### [facility] [address] [place] [address] [employer] Instructor - Demetra CORTEZ [id number] Performed for [facility] [address] [place] [address] LUMBAR WITH OBLIQUESon 05-30 LUMBAR WITH OBLIQUES EXAM: LUMBAR WITH OBLIQUES HISTORY: Low back pain COMPARISON: None. TECHNIQUE: 5 views FINDINGS: Satisfactory alignment. Maintained vertebral body heights and disc spaces. No acute fracture or subluxation. Unremarkable soft tissues. IMPRESSION: Unremarkable exam. Normal [facility] CBC W Auto Differential pane l (Bld)on 03-22-2023 Basophils (Bld) [#/Vol] 0.05 10*3/uL Normal <=0.70 [facility] Comment on above: Performed By: #### 5 7021-8 #### [facility] [address] [place] [address] [employer] Instructor - Demetra CORTEZ [id number] Basophils/100 WBC (Bld) 0.7 % Normal <=2.0 [facility] Comment on above: Performed By: #### 5 7021-8 #### [facility] [address] [place] [address] [employer] Instructor - Demetra CORTEZ [id number] Eosinophils (Bld) [#/Vol] 0.14 10*3/uL Normal <=0.70 [facility] Comment on above: Performed By: #### 5 7021-8 #### [facility] [address] [place] [address] [employer] Instructor - Demetra CORTEZ [id number] Eosinophils/100 WBC (Bld) 2.0 % Normal <=10.0 [facility] Comment on above: Performed By: #### 5 7021-8 #### [facility] [address] [place] [address] [employer] Instructor - Demetra LYLESIA [id number] Erythrocyte distribution width (RBC) [Entitic vol] 39.7 fL Normal 35.1-43.9 [facility] Comment on above: Performed By: #### 5 7021-8 #### [address] [place] [address] [employer] Instructor - Demetra LYLESIA [id number] Hematocrit (Bld) [Volume fraction] 44.2 % Normal 40.0-54.0 [facility] Comment on above: Performed By: #### 5 7021-8 #### [address] [place] [address] [employer] Instructor - Demetra Daniel CLIA [id number] Hemoglobin (Bld) [Mass/Vol] 14.7 g/dL Normal 14.0-18.0 [facility] Comment on above: Performed By: #### 5 7021-8 #### [address] [place] [address] [employer] Instructor - Demetra Daniel CLIA [id number] Immature granulocytes (Bld) [#/Vol] 0.01 10*3/uL Normal <=0.10 [facility] Comment on above: Performed By: #### 5 7021-8 #### [address] [place] [address] [employer] Instructor - Demetra Daniel CLIA [id number] Immature granulocytes/100 WBC (Bld) 0.10 % Normal <=1.50 [facility] Comment on above: Performed By: #### 5 7021-8 #### [address] [place] [address] [employer] Instructor - Demetra LYLESIA [id number] Lymphocytes (Bld) [#/Vol] 2.27 10*3/uL Normal 1.20-3.40 [facility] Comment on above: Performed By: #### 5 7021-8 #### [place] [id number] [facility]. [place] [address] [employer] Instructor - Demetra CORTEZ [id number] Lymphocytes/100 WBC (Bld) 32.5 % Normal 20.0-40.0 [facility] Comment on above: Performed By: #### 5 7021-8 #### [address] [place] [address] [employer] Instructor - Demetra CORTEZ [id number] MCH (RBC) [Entitic mass] 27.9 pg Normal 27.0-31.0 [facility] Comment on above: Performed By: #### 5 7021-8 #### [place] [address] [employer] Instructor - Demetra CORTEZ [id number] MCHC (RBC) [Mass/Vol] 33.3 g/dL Normal 32.0-36.0 [facility] Comment on above: Performed By: #### 5 7021-8 #### [place] [address] [employer] Instructor - Demetra CORTEZ [id number] MCV (RBC) [Entitic vol] 84.0 fL Normal 80.0-100.0 [facility] Comment on above: Performed By: #### 5 7021-8 #### [address] [place] [address] [employer] Instructor - Demetra LYLESIA [id number] Monocytes (Bld) [#/Vol] 0.69 10*3/uL High 0.10-0.60 [facility] Comment on above: Performed By: #### 5 7021-8 #### [address] [place] [address] [employer] Instructor - Demetra LYLESIA [id number] Monocytes/100 WBC (Bld) 9.9 % High <=8.0 [facility] Comment on above: Performed By: #### 5 7021-8 #### [facility] [address] [place] [address] [employer] Instructor - Demetra LYLESIA [id number] Neutrophils (Bld) [#/Vol] 3.83 10*3/uL Normal 1.40-6.50 [facility] Comment on above: Performed By: #### 5 7021-8 #### [facility] [address] [place] [address] [employer] Instructor - Demetra Daniel CLIA [id number] Neutrophils/100 WBC (Bld) 54.8 % Normal 50.0-70.0 [facility] Comment on above: Performed By: #### 5 7021-8 #### [place] [address] [place] [address] [employer] Instructor - Demetra LYLESIA [id number] Nucleated RBC (Bld) [#/Vol] 0.00 10*3/uL Normal <=0.10 [facility] Comment on above: Performed By: #### 5 7021-8 #### [facility] [address] [place] [address] [employer] Instructor - Demetra LYLESIA [id number] Platelet mean volume (Bld) [Entitic vol] 10.0 fL Normal 9.0-13.0 [facility] Comment on above: Performed By: #### 5 7021-8 #### [facility] [address] [place] [address] [employer] Instructor - Demetra Daniel CLIA [id number] Platelets (Bld) [#/Vol] 317 10*3/uL Normal 130-400 [facility] Comment on above: Performed By: #### 5 7021-8 #### [facility] [address] [place] [address] [employer] Instructor - Demetra LYLESIA [id number] RBC (Bld) [#/Vol] 5.26 10*6/uL Normal 4.00-6.30 [facility] Comment on above: Performed By: #### 5 7021-8 #### [facility] [address] [place] [address] [employer] Instructor - Demetra LYLESIA [id number] WBC (Bld) [#/Vol] 6.99 10*3/uL Normal 4.80-10.80 [facility] Comment on above: Performed By: #### 5 7021-8 #### [facility] [address] [place] [address] [employer] Instructor - Demetra CORTEZ [id number] Comprehensive metabolic 2000 panelon 03-22-2023 Albumin [Mass/Vol] 4.2 g/dL Normal 3.4-5.0 [facility] Comment on above: Performed By: #### 2 4323-8 #### [facility] [address] [place] [address] [employer] Instructor - [employer]etra LYLESIA [id number] Performed for [facility] [address] [place] [address] #### 33872-9 #### [facility] [address] [place] [address] [employer] Instructor - [employer]etra LYLESIA [id number] ALP [Catalytic activity/Vol] 127 U/L Normal 50-136 [facility] Comment on above: Performed By: #### 2 4323-8 #### [facility] [address] [place] [address] [employer] Instructor - [employer]etra LYLESIA [id number] Performed for [facility] [address] [place] [address] #### 21619-0 #### [facility] [address] [place] [address] [employer] Instructor - Demetra LYLESIA [id number] ALT [Catalytic activity/Vol] 114 U/L High 16-63 [facility] Comment on above: Performed By: #### 2 4323-8 #### [facility] [address] [place] [address] [employer] Instructor - Demetra LYLESIA [id number] Performed for [facility] [address] [place] [address] #### 21829-5 #### [facility] [address] [place] [address] [employer] Instructor - Demetra LYLESIA [id number] Anion gap [Moles/Vol] 6.1 mmol/L Normal <=15.0 [facility] Comment on above: Performed By: #### 2 4323-8 #### [facility] [address] [place] [address] [employer] Instructor - Demetra LYLESIA [id number] Performed for [facility] [address] [place] [address] #### 02546-7 #### [facility] [address] [place] [address] [employer] Instructor - Demetra LYLESIA [id number] AST [Catalytic activity/Vol] 51 U/L High 15-37 [facility] Comment on above: Performed By: #### 2 4323-8 #### [facility] [address] [place] [address] [employer] Instructor - Demetra LYLESIA [id number] Performed for [facility] [address] [place] [address] #### 99438-8 #### [facility] [address] [place] [address] [employer] Instructor - Demetra LYLESIA [id number] Bilirubin [Mass/Vol] 0.5 mg/dL Normal 0.2-1.0 [facility] Comment on above: Performed By: #### 2 4323-8 #### [facility] [address] [place] [address] [employer] Instructor - Demetra LYLESIA [id number] Performed for [facility] [address] [place] [address] #### 88429-2 #### [facility] [address] [place] [address] [employer] Instructor - Demetra LYLESIA [id number] Calcium [Mass/Vol] 8.9 mg/dL Normal 8.5-10.1 [facility] Comment on above: Performed By: #### 2 4323-8 #### [facility] [address] [place] [address] [employer] Instructor - Demetra LYLESIA [id number] Performed for [facility] [address] [place] [address] #### 03336-7 #### [facility] [address] [place] [address] [employer] Instructor - [employer]etra LYLESIA [id number] Chloride [Moles/Vol] 107 mmol/L Normal 98-107 [facility] Comment on above: Performed By: #### 2 4323-8 #### [facility] [address] [place] [address] [employer] Instructor - Demetra LYLESIA [id number] Performed for [facility] [address] [place] [address] #### 45610-7 #### [facility] [address] [place] [address] [employer] Instructor - Demetra LYLESIA [id number] CO2 [Moles/Vol] 27 mmol/L Normal 21-32 [facility] Comment on above: Performed By: #### 2 4323-8 #### [facility] [address] [place] [address] [employer] Instructor - [employer]etra LYLESIA [id number] Performed for [facility] [address] [place] [address] #### 89302-8 #### [facility] [address] [place] [address] [employer] Instructor - Demetra CORTEZ [id number] Creatinine [Mass/Vol] 0.68 mg/dL Normal 0.67-1.17 [facility] Comment on above: Performed By: #### 2 4323-8 #### [facility] [address] [place] [address] [employer] Instructor - Demetra CORTEZ [id number] Performed for [facility] [address] [place] [address] #### 33290-8 #### [facility] [address] [place] [address] [employer] In[employer] - Demetra Daniel CLIA [id number] GFR/1.73 sq M.predicted MDRD (S/P/Bld) [Vol rate/Area] Normal 59-N/A [facility] Comment on above: Performed By: #### 2 4323-8 #### [facility] [address] [place] [address] [employer] Instructor - Demetra CORTEZ [id number] Performed for [facility] [address] [place] [address] #### 99261-5 #### [facility] [address] [place] [address] [employer] Instructor - Demetra Danile DIEGO [id number] Glucose [Mass/Vol] 101 mg/dL Normal 74-106 [facility] Comment on above: Performed By: #### 2 4323-8 #### [facility] [address] [place] [address] [employer] Instructor [facility]DARWIN [id number] Performed for [facility] [address] [place] [address] #### 38581-6 #### [facility] [address] [place] [address] [employer] Instructor [facility]]DARWIN [id number] HGFR GLOMERULAR FILTRATIO N RATE INTERPRETATION~The eGFR [...] months, with or without kidney damage.~ Normal [facility] Comment on above: Performed By: #### 2 4323-8 #### [facility] [address] [place] [address] [employer] Instructor - Demetra LYLESIA [id number] Performed for [facility] [address] [place] [address] #### 41633-3 #### [facility] [address] [place] [address] [employer] Instructor - Demetra LYLESIA [id number] Potassium [Moles/Vol] 3.9 mmol/L Normal 3.5-5.1 [facility] Comment on above: Performed By: #### 2 4323-8 #### [facility] [address] [place] [address] [employer] Instructor - Demetra LYLESIA [id number] Performed for [facility] [address] [place] [address] #### 38988-7 #### [facility] [address] [place] [address] [employer] Instructor - Demetra LYLESIA [id number] Protein [Mass/Vol] 7.1 g/dL Normal 6.4-8.2 [facility] Comment on above: Performed By: #### 2 4323-8 #### [facility] [address] [place] [address] [employer] Instructor - Demetra LYLESIA [id number] Performed for [facility] [address] [place] [address] #### 83547-3 #### [facility] [address] [place] [address] [employer] Instructor - Demetra LYLESIA [id number] Sodium [Moles/Vol] 140 mmol/L Normal 136-145 [facility] Comment on above: Performed By: #### 2 4323-8 #### [facility] [address] [place] [address] [employer] Instructor - Demetra LYLESIA [id number] Performed for [facility] [address] [place] [address] #### 81510-4 #### [facility] [address] [place] [address] [employer] Instructor - Demetra CORTEZ [id number] Urea nitrogen [Mass/Vol] 10 mg/dL Normal 05-23 [facility] Comment on above: Performed By: #### 2 4323-8 #### [facility] [address] [place] [address] [employer] Instructor - Demetra CORTEZ [id number] Performed for [facility] [address] [place] [address] #### 40161-6 #### [place] [address] [place] [address] [employer] Instructor - Demetra CORTEZ [id number] LITHIUMon 03-22-2023 [place] [Moles/Vol] 0.4 mmol/L Low 0.6-1.2 [facility] Comment on above: Performed By: #### 1 4334-7 #### [place] [address] [place] [address] [employer] Instructor - Demetra CORTEZ [id number] TSH DL <= 0.05 mIU/L Qnon TSH Qn 3.200 uIU/mL Normal 0.358-3.740 [facility] Comment on above: Performed By: #### 2 4323-8 #### [facility] [address] [place] [address] [employer] Instructor - Demetra LYLESIA [id number] Performed for [facility] [address] [place] [address] #### 61643-5 #### [facility] [address] [place] [address] [employer] In[employer] - Demetra CORTEZ [id number] Urinalysis panel Auto (U)on 03-22-2023 Bacteria LM.HPF (Urine sed) [#/Area] Negative Normal TRACE [facility] Comment on above: Performed By: #### 5 0564-4 #### [facility] [address] [place] [address] [employer] In[employer] - Demetra CORTEZ [id number] Bilirubin Ql (U) Negative Normal NEGATIVE [facility] Comment on above: Performed By: #### 5 0564-4 #### [facility] [address] [place] [address] [employer] Instructor - [facility] [id number] Clarity (U) CLEAR Normal CLEAR [facility] Comment on above: Performed By: #### 5 0564-4 #### [facility] [address] [place] [address] [employer] Instructor - [facility] [id number] Color (U) DK YELLOW Abnormal YELLOW [facility] Comment on above: Performed By: #### 5 0564-4 #### [facility] [address] [place] [address] [employer] Instructor - [facility] [id number] Glucose Ql (U) Negative Normal NEGATIVE [facility] Comment on above: Performed By: #### 5 0564-4 #### [facility] [address] [place] [address] [employer] - [facility] [id number] Hemoglobin Ql (U) Negative Normal NEGATIVE [facility] Comment on above: Performed By: #### 5 0564-4 #### [facility] [address] [place] [address] [employer] - [facility] [id number] HMICRO MICROSCOPIC Normal [facility] Comment on above: Performed By: #### 5 0564-4 #### [facility] [address] [place] [address] [employer] - [facility] [id number] Hyaline casts (Urine sed) [#/Area] 0-8 Normal 0-8 [facility] Comment on above: Performed By: #### 5 0564-4 #### [facility] [address] [place] [address] [employer]structor - [facility] [id number] KETONE 1+ Abnormal NEGATIVE [facility] Comment on above: Performed By: #### 5 0564-4 #### [facility] [address] [place] [address] [employer] Instructor - Demetra CORTEZ [id number] Leukocyte esterase Test strip Ql (U) Negative Normal TRACE [facility] Comment on above: Performed By: #### 5 0564-4 #### [facility] [address] [place] [address] [employer] Instructor - Demetra CORTEZ [id number] Nitrite Ql (U) Negative Normal NEGATIVE [facility] Comment on above: Performed By: #### 5 0564-4 #### [facility] [address] [place] [address] [employer] Instructor - Demetra CORTEZ [id number] pH (U) 6.0 [pH] Normal 5.5-7.5 [facility] Comment on above: Performed By: #### 5 0564-4 #### [facility] [address] [facility] [place] [address] [employer] Instructor - Demetra LYLESIA [id number] Protein Ql (U) TRACE Abnormal NEGATIVE [facility] Comment on above: Performed By: #### 5 0564-4 #### [facility] [address] [facility] [place] [address] [employer] Instructor - Demetra CORTEZ [id number] RBC LM.HPF (Urine sed) [#/Area] 0-4 Normal 0-4 [facility] Comment on above: Performed By: #### 5 0564-4 #### [facility] [address] [facility] [place] [address] [employer] Instructor - Demetra CORTEZ [id number] Specific gravity (U) [Rel density] 1.034 Normal 1.010-1.035 [facility] Comment on above: Performed By: #### 5 0564-4 #### [facility] [address] [facility] [place] [address] [employer] Instructor - Demetra CORTEZ [id number] SQUAMOUS EPITHELIALS 0-5 Normal 0-5 [facility] Comment on above: Performed By: #### 5 0564-4 #### [facility] [address] [facility] [place] [address] [employer] Instructor - Demetra Daniel RAFALDARWIN [id number] Urobilinogen Qn (U) 1.0 {Trevon'U}/dL Normal <=1.0 [facility] Comment on above: Performed By: #### 5 0564-4 #### [facility] [address] [place] [address] [employer] Instructor - Demetra Daniel RAFALDARWIN [id number] WBC LM.HPF (Urine sed) [#/Area] 0-5 Normal 0-5 [facility] Comment on above: Performed By: #### 5 0564-4 #### [facility] [address] [place] [address] [employer] Instructor - Demetra Daniel RAFALDARWIN [id number] XR Chest PA and Lateralon IMPRESSION: Left lower lobe opacity concerning for possible pneumonia. However, overlying soft tissues could result in a similar appearance. Correlation recommended. Power Truck Driver: MARTINA Transcribe Date/Time: Jan 24 2023 12:03P Dictated by : JUANITO MONK MD This examination was interpreted and the report reviewed and electronically signed by: JUANITO MONK MD on Jan 24 2023 12:05PM [facility] DIVISION OF RADIOLOGY * [...] result in a similar appearance. Correlation recommended. Power Truck Driver: PSCB Transcribe Date/Time: Jan 24 2023 12:03P Dictated by : JUANITO MONK MD This examination was interpreted and the report reviewed and electronically signed by: JUANITO MONK MD on Jan 24 2023 12:05PM EST [facility] Radiology Study observation (narrative) [facility] XR Chest PA and LateralOrder ed By: Ccf Provider on 01-24-2023 [facility] Absolute lymphocyte countOrd ered By: Dr. Santo on 12-26-2022 Lymphocytes Auto (Unsp spec) [#/Vol] 2.02 10*3/uL 0.83-4.51 [facility] Basophil percentageOrdered B y: Dr. Santo on 12-26-2022 Basophils/100 WBC (Bld) 0.5 % 0-1 [facility] Chloride [Moles/Vol] 108 mmol/L 98-107 [facility] Eosinophils/100 WBC (Bld) 1.4 % 0-3 [facility] Glucose [Mass/Vol] 118 mg/dL 74-106 [facility] Comment on above: Fasting Glucose resu lt from 100 to 125 mg/dL suggests IMPAIRED HOMEOSTASIS per A.D.A. criteria. Neutrophils (Bld) [#/Vol] 5.6 10*3/uL 2.0-7.7 [facility] Neutrophils/100 WBC (Bld) 64.9 % 34-64 [facility] Potassium [Moles/Vol] 3.4 mmol/L 3.5-5.1 [facility] Sodium [Moles/Vol] 140 mmol/L 136-145 [facility] WBC (Bld) [#/Vol] 8.6 10*3/uL 4.5-13.0 [facility] Blood erythrocytes count (nu mber/volume)Ordered By: Dr. Santo on 12-26-2022 RBC (Bld) [#/Vol] 5.23 10*6/uL 4.5-5.1 [facility] Blood hemoglobin measurement (mass/volume)Ordered By: Dr. Santo on 12-26-2022 Hemoglobin (Bld) [Mass/Vol] 14.9 g/dL 13.0-16.5 [facility] Blood lymphocytes/100 leukoc ytesOrdered By: Dr. Santo on 12-26-2022 Lymphocytes/100 WBC (Bld) 23.6 % 25-45 [facility] Blood monocytes/100 leukocyt esOrdered By: Dr. Santo on 12-26-2022 Monocytes/100 WBC (Bld) 9.0 % 3-6 [facility] Blood platelet mean volumeOr dered By: Dr. Santo on 12-26-2022 Platelet mean volume (Bld) [Entitic vol] 10.2 fL 6.2-12.0 [facility] COVID-19 virus antigen assay Ordered By: Dr. Santo on 12-26-2022 SARS-CoV-2 (COVID-19) Ag IA.rapid Ql (Resp) [facility] Determination of erythrocyte mean corpuscular volume (MCV)Ordered By: Dr. Santo on 12-26-2022 MCV (RBC) [Entitic vol] 85.3 fL 78-96 [facility] Hematocrit Auto (Bld) [Volum e fraction]Ordered By: Dr. Santo on 12-26-2022 Hematocrit (Bld) [Volume fraction] 44.6 % 36-47 [facility] Laboratory - Chemistry and C hemistry - challengeOrdered By: Dr. Santo on 12-26-2022 CO2 [Moles/Vol] 26.0 mmol/L 21.0-32.0 [facility] Urea nitrogen/Creatinine [Mass ratio] 14.9 mg/mg 10-20 [facility] Laboratory - Drug toxicology Ordered By: Dr. Santo on 12-26-2022 Amphetamines Ql (U) Negative <1000 ng/mL [facility] Benzodiazepines Ql (U) Negative < 200 ng/mL [facility] Cannabinoids Screen Ql (U) Negative < 50 ng/mL [facility] Cocaine Ql (U) Negative < 300 ng/mL [facility] Opiates Ql (U) Negative < 300 ng/mL [facility] Laboratory - Hematology and Cell countsOrdered By: Dr. Santo on 12-26-2022 Erythrocyte distribution width (RBC) [Entitic vol] 40.1 fL 35.1-43.9 [facility] Erythrocyte distribution width (RBC) [Ratio] 12.9 % 11.6-14.6 [facility] Immature granulocytes/100 WBC (Bld) 0.600 % 0.0-0.9 [facility] Comment on above: IG% - Immature Granu locytes (promyelocytes, myelocytes and metamyelocytes) > 1% indicates that a LEFT SHIFT is Present. MCH (RBC) [Entitic mass] 28.5 pg 25.0-35.0 [facility] Nucleated RBC/100 WBC (Bld) [Ratio] 0 % 0-5 [facility] MCHC Auto (RBC) [Mass/Vol]Or dered By: Dr. Santo on 12-26-2022 MCHC (RBC) [Mass/Vol] 33.4 g/dL 32-36 [facility] No Panel InformationOrdered By: Dr. Santo on 12-26-2022 Estimated Creatinine Clearance Calc 192.00 ml/min [facility] Estimated GFR (MDRD) Amer [facility] Comment on above: Test not performedAf rican Mauritanian GFR Calc Estimated GFR (MDRD) Non-Af [facility] Comment on above: Test not performedNo n- GFR Calc Ethyl Alcohol Level < 3.0 mg/dL [facility] Comment on above: The serum:whole bloo d ethanol ratio is approximately 1.14and varies slightly with hematocrit. Medical Alcohol reference interval and critical value innon-tolerant individuals; 50 - 100 Impairment 100 Intoxication 100 - 250 Severe Poisoning 250 - 400 Deep/possible fatal coma MDMA (Ecstasy) Screen Negative < 500 ng/mL [facility] Urine Barbiturates Screen Negative < 200 ng/mL [facility] Urine Drug Screen Comment [facility] Comment on above: CONFIRMATORY TESTING FOR [...] Urine Methadone Screen Negative < 300 ng/mL [facility] Platelets bldOrdered By: Dr. Santo on 12-26-2022 Platelets (Bld) [#/Vol] 325 10*3/uL 150-450 [facility] Serum or plasma calcium rhona urement (mass/volume)Ordered By: Dr. Santo on 12-26-2022 Calcium [Mass/Vol] 9.0 mg/dL 8.5-10.1 [facility] Serum or plasma creatinine m easurement (mass/volume)Ordered By: Dr. Santo on 12-26-2022 Creatinine [Mass/Vol] 0.67 mg/dL 0.70-1.30 [facility] Comment on above: The validity of the calculated GFR & GFRAA in patients over 70 years has not been determined. Clinical correlation is essential. Serum or plasma urea nitroge n measurement (mass/volume)Ordered By: Dr. Santo on 12-26-2022 Urea nitrogen [Mass/Vol] 10 mg/dL 7-18 [facility] Thin prep Papanicolaou smear with manual screeningOrdered By: Dr. Santo on 12-26-2022 Thin prep Papanicolaou smear with manual screening 6 5-15 [facility] Urine phencyclidine (PCP) de tectionOrdered By: Dr. Santo on 12-26-2022 Phencyclidine Ql (U) Negative < 25 ng/mL [facility] Drugs of Abuse with THC, uri [place] 08-06-2022 Amphetamines, Ur Negative Negative NA [facility] Comment on above: Threshold = 1000 ng/ mL Barbiturates, Ur Negative Negative [facility] Comment on above: Threshold = 200 ng/m L Benzodiazepines, Ur Negative Negative [facility] Comment on above: Threshold = 200 ng/m L Cocaine Negative Negative [facility] Comment on above: Threshold = 300 ng/m L Methadone, Ur Negative Negative [facility] Comment on above: Threshold = 300 ng/m L Opiates Negative Negative [facility] Comment on above: Threshold = 300 ng/m L PCP-Phencyclidine Negative Negative [facility] Comment on above: Threshold = 25 ng/mL THC,50,Urine Negative Negative [facility] Comment on above: Threshold = 50 ng/mL Note: This testing is intended for medical management and treatment only. Analysis performed using non-forensic (screening/non-confirmatory) procedures. Reason for preventin g automatic release->Other Release to patient->Manual release only [facility] Absolute lymphocyte counton 06-28-2022 Lymphocytes Auto (Unsp spec) [#/Vol] 2.06 10*3/uL 0.83-4.51 [facility] Work Phone: Basophil percentageon 2021 Basophils/100 WBC (Bld) 0.5 % 0-1 [facility] Work Phone: Chloride [Moles/Vol] 107 mmol/L 98-107 [facility] Work Phone: Eosinophils/100 WBC (Bld) 0.4 % 0-3 [facility] Work Phone: Glucose [Mass/Vol] 101 mg/dL 74-106 [facility] Work Phone: Comment on above: Fasting Glucose resu lt from 100 to 125 mg/dL suggests IMPAIRED HOMEOSTASIS per A.D.A. criteria. Neutrophils (Bld) [#/Vol] 5.7 10*3/uL 2.0-7.7 [facility] Work Phone: Neutrophils/100 WBC (Bld) 66.3 % 34-64 [facility] Work Phone: Potassium [Moles/Vol] 4.1 mmol/L 3.5-5.1 [facility] Work Phone: Sodium [Moles/Vol] 138 mmol/L 136-145 [facility] Work Phone: [phone] WBC (Bld) [#/Vol] 8.5 10*3/uL 4.5-13.0 [facility] Work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 - Immature Granu locytes (promyelocytes, myelocytes and metamyelocytes) > 1% indicates that a LEFT SHIFT is Present. MCH (RBC) [Entitic mass] 28.0 pg 25.0-35.0 [facility] Work Phone: Nucleated RBC/100 WBC (Bld) [Ratio] 0 % 0-5 [facility] Work Phone: MCHC Auto (RBC) [Mass/Vol]on 01-08-2022 MCHC (RBC) [Mass/Vol] 33.2 g/dL 32-36 [facility] Work Phone: No Panel Informationon 01-08 MDMA (Ecstasy) Screen Negative [facility] Work Phone: [phone] Urine Barbiturates Screen Negative [facility] Work Phone: [phone] Urine Drug Screen Comment [facility] Work Phone: Comment on above: CONFIRMATORY [...] USE TESTMNEMONIC: [facility] Urine Methadone Screen Negative [facility] Work Phone: [phone] Estimated Creatinine Clearance Calc 163.28 ml/min [facility] Work Phone: [phone] Estimated GFR (MDRD) [facility] Work Phone: [phone] Comment on above: Test not performedAf rican [place]ian GFR Calc Estimated GFR (MDRD) Non-Af [facility] Work Phone: [phone] Comment on above: Test not performedNo n- GFR Calc Ethyl Alcohol Level < 3.0 mg/dL [facility] Work Phone: [phone] Comment on above: The serum:whole bloo d ethanol ratio is approximately 1.14and varies slightly with hematocrit. Medical Alcohol reference interval and critical value innon-tolerant individuals; 50 - 100 Impairment 100 Intoxication 100 - 250 Severe Poisoning 250 - 400 Deep/possible fatal coma Platelets bldon 01-08-2022 Platelets (Bld) [#/Vol] 304 10*3/uL 150-450 [facility] Work Phone: Serum or plasma calcium rhona urement (mass/volume)on 01-08-2022 Calcium [Mass/Vol] 9.3 mg/dL 8.5-10.1 [facility] Work Phone: Serum or plasma creatinine m easurement (mass/volume)on 01-08-2022 Creatinine [Mass/Vol] 0.77 mg/dL 0.70-1.30 [facility] Work Phone: Comment on above: The validity of the calculated GFR & GFRAA in patients over 70 years has not been determined. Clinical correlation is essential. Serum or plasma urea nitroge n measurement (mass/volume)on 01-08-2022 Urea nitrogen [Mass/Vol] 13 mg/dL 7-18 [facility] Work Phone: Thin prep Papanicolaou smear with manual screeningon 01-08-2022 Thin prep Papanicolaou smear with manual screening 6 5-15 [facility] Work Phone: Urine phencyclidine (PCP) de tectionon 01-08-2022 Phencyclidine Ql (U) Negative [facility] Work Phone: Absolute lymphocyte counton 12-03-2021 Lymphocytes Auto (Unsp spec) [#/Vol] 2.09 10*3/uL 0.83-4.51 [facility] Work Phone: Basophil percentageon 2021 Basophils/100 WBC (Bld) 0.5 % 0-1 [facility] Work Phone: Chloride [Moles/Vol] 109 mmol/L 98-107 [facility] Work Phone: Eosinophils/100 WBC (Bld) 0.9 % 0-3 [facility] Work Phone: Glucose [Mass/Vol] 97 mg/dL 74-106 [facility] Work Phone: [phone] Neutrophils (Bld) [#/Vol] 6.3 10*3/uL 2.0-7.7 [facility] Work Phone: Neutrophils/100 WBC (Bld) 67.6 % 34-64 [facility] Work Phone: [phone] Potassium [Moles/Vol] 3.7 mmol/L 3.5-5.1 [facility] Work Phone: [phone] Sodium [Moles/Vol] 143 mmol/L 136-145 [facility] Work Phone: [phone] WBC (Bld) [#/Vol] 9.3 10*3/uL 4.5-13.0 [facility] Work Phone: [phone] Blood erythrocytes count (nu mber/volume)on 12-03-2021 RBC (Bld) [#/Vol] 5.09 10*6/uL 4.5-5.1 [facility] Work Phone: [phone] Blood hemoglobin measurement (mass/volume)on 12-03-2021 Hemoglobin (Bld) [Mass/Vol] 14.6 g/dL 13.0-16.5 [facility] Work Phone: [phone] Blood lymphocytes/100 leukoc yteson 12-03-2021 Lymphocytes/100 WBC (Bld) 22.5 % 25-45 [facility] Work Phone: [phone] Blood monocytes/100 leukocyt eson 12-03-2021 Monocytes/100 WBC (Bld) 8.2 % 3-6 [facility] Work Phone: [phone] Blood platelet mean volumeon 12-03-2021 Platelet mean volume (Bld) [Entitic vol] 10.3 fL 6.2-12.0 [facility] Work Phone: [phone] Determination of erythrocyte mean corpuscular volume (MCV)on 12-03-2021 MCV (RBC) [Entitic vol] 83.5 fL 78-96 [facility] Work Phone: Hematocrit Auto (Bld) [Volum e fraction]on 12-03-2021 Hematocrit (Bld) [Volume fraction] 42.5 % 36-47 [facility] Work Phone: [phone] Laboratory - Chemistry and C hemistry - challengeon 12-03-2021 CO2 [Moles/Vol] 29.0 mmol/L 21.0-32.0 [facility] Work Phone: [phone] Urea nitrogen/Creatinine [Mass ratio] 18.9 mg/mg 10-20 [facility] Work Phone: [phone] Laboratory - Drug toxicology on 12-03-2021 Amphetamines Ql (U) Negative [facility] Work Phone: [phone] Benzodiazepines Ql (U) Negative [facility] Work Phone: [phone] Cannabinoids Screen Ql (U) Negative [facility] Work Phone: [phone] Cocaine Ql (U) Negative [facility] Work Phone: [phone] Opiates Ql (U) Negative [facility] Work Phone: [phone] Laboratory - Hematology and Cell countson 12-03-2021 Erythrocyte distribution width (RBC) [Entitic vol] 38.4 fL 35.1-43.9 [facility] Work Phone: [phone] Erythrocyte distribution width (RBC) [Ratio] 12.6 % 11.6-14.6 [facility] Work Phone: [phone] Immature granulocytes/100 WBC (Bld) 0.300 % 0.0-0.9 [facility] Work Phone: [phone] Comment on above: IG% - Immature Granu locytes (promyelocytes, myelocytes and metamyelocytes) > 1% indicates that a LEFT SHIFT is Present. MCH (RBC) [Entitic mass] 28.7 pg 25.0-35.0 [facility] Work Phone: [phone] Nucleated RBC/100 WBC (Bld) [Ratio] 0 % 0-5 [facility] Work Phone: [phone] MCHC Auto (RBC) [Mass/Vol]on 12-03-2021 MCHC (RBC) [Mass/Vol] 34.4 g/dL 32-36 [facility] Work Phone: [phone] Panel Informationon 12-03 MDMA (Ecstasy) Screen Negative [facility] Work Phone: Urine Barbiturates Screen Negative [facility] Work Phone: [phone] Urine Drug Screen Comment [facility] Work Phone: Comment on above: CONFIRMATORY [...] USE TESTMNEMONIC: [facility] Urine Methadone Screen Negative [facility] Work Phone: Estimated Creatinine Clearance Calc 155.37 ml/min [facility] Work Phone: Estimated GFR (MDRD) [facility] Work Phone: [phone] Comment on above: Test not performedAf rican [place]ian GFR Calc Estimated GFR (MDRD) Non-Af [facility] Work Phone: Comment on above: Test not performedNo n- GFR Calc Ethyl Alcohol Level < 3.0 mg/dL [facility] Work Phone: Comment on above: The serum:whole bloo d ethanol ratio is approximately 1.14and varies slightly with hematocrit. Medical Alcohol reference interval and critical value innon-tolerant individuals; 50 - 100 Impairment 100 Intoxication 100 - 250 Severe Poisoning 250 - 400 Deep/possible fatal coma Platelets bldon 12-03-2021 Platelets (Bld) [#/Vol] 323 10*3/uL 150-450 [facility] Work Phone: [phone] Serum or plasma calcium rhona urement (mass/volume)on 12-03-2021 Calcium [Mass/Vol] 9.0 mg/dL 8.5-10.1 [facility] Work Phone: [phone] Serum or plasma creatinine m easurement (mass/volume)on 12-03-2021 Creatinine [Mass/Vol] 0.79 mg/dL 0.50-0.80 [facility] Work Phone: Serum or plasma urea nitroge n measurement (mass/volume)on 12-03-2021 Urea nitrogen [Mass/Vol] 15 mg/dL 7-18 [facility] Work Phone: Thin prep Papanicolaou smear with manual screeningon 12-03-2021 Thin prep Papanicolaou smear with manual screening 5 5-15 [facility] Work Phone: [phone] Urine phencyclidine (PCP) de tectionon 12-03-2021 Phencyclidine Ql (U) Negative [facility] Work Phone: COVID-19, MOLECULARon 2021 SARS-CoV-2 (COVID-19) RNA LEIGHA+probe Ql (Unsp spec) Not detected Normal Not Detected [facility] Comment on above: Order Comment: This [...] at the following links: For Healthcare Providers: https://www.fda.gov/media/220570/download For Patients: https://www.fda.gov/media/162534/download Performed By: #### L [id number] #### [facility] [address] [place], [place] [address] Evan Perkins M.D. [id number] Absolute lymphocyte counton 11-25-2021 Lymphocytes Auto (Unsp spec) [#/Vol] 2.14 10*3/uL 0.83-4.51 [facility] Work Phone: Basophil percentageon 2021 Basophils/100 WBC (Bld) 0.5 % 0-1 [facility] Work Phone: Chloride [Moles/Vol] 108 mmol/L 98-107 [facility]: Eosinophils/100 WBC (Bld) 0.5 % 0-3 [facility] Work Phone: Glucose [Mass/Vol] 95 mg/dL 74-106 [facility] Work Phone: Neutrophils (Bld) [#/Vol] 4.6 10*3/uL 2.0-7.7 [facility] Work Phone: Neutrophils/100 WBC (Bld) 61.0 % 34-64 [facility] Work Phone: Potassium [Moles/Vol] 4.3 mmol/L 3.5-5.1 [facility] Work Phone: Sodium [Moles/Vol] 141 mmol/L 136-145 [facility] Work Phone: WBC (Bld) [#/Vol] 7.5 10*3/uL 4.5-13.0 [facility] Work Phone: Blood erythrocytes count (nu mber/volume)on 11-25-2021 RBC (Bld) [#/Vol] 5.06 10*6/uL 4.5-5.1 [facility] Work Phone: Blood hemoglobin measurement (mass/volume)on 11-25-2021 Hemoglobin (Bld) [Mass/Vol] 14.5 g/dL 13.0-16.5 [facility] Work Phone: Blood lymphocytes/100 leukoc yteson 11-25-2021 Lymphocytes/100 WBC (Bld) 28.5 % 25-45 [facility] Work Phone: Blood monocytes/100 leukocyt eson 11-25-2021 Monocytes/100 WBC (Bld) 9.0 % 3-6 [facility] Work Phone: Blood platelet mean volumeon 11-25-2021 Platelet mean volume (Bld) [Entitic vol] 9.8 fL 6.2-12.0 [facility] Work Phone: [phone] Determination of erythrocyte mean corpuscular volume (MCV)on 11-25-2021 MCV (RBC) [Entitic vol] 86.0 fL 78-96 [facility] Work Phone: [phone] Hematocrit Auto (Bld) [Volum e fraction]on 11-25-2021 Hematocrit (Bld) [Volume fraction] 43.5 % 36-47 [facility] Work Phone: [phone] Laboratory - Chemistry and C hemistry - challengeon 11-25-2021 CO2 [Moles/Vol] 29.0 mmol/L 21.0-32.0 [facility] Work Phone: [phone] Urea nitrogen/Creatinine [Mass ratio] 19.8 mg/mg 10-20 [facility] Work Phone: [phone] Laboratory - Drug toxicology on 11-25-2021 Amphetamines Ql (U) Negative [facility] Work Phone: [phone] Benzodiazepines Ql (U) Negative [facility] Work Phone: [phone] Cannabinoids Screen Ql (U) Negative [facility] Work Phone: [phone] Cocaine Ql (U) Negative [facility] Work Phone: [phone] Opiates Ql (U) Negative [facility] Work Phone: [phone] Laboratory - Hematology and Cell countson 11-25-2021 Erythrocyte distribution width (RBC) [Entitic vol] 40.2 fL 35.1-43.9 [facility] Work Phone: [phone] Erythrocyte distribution width (RBC) [Ratio] 12.9 % 11.6-14.6 [facility] Work Phone: [phone] Immature granulocytes/100 WBC (Bld) 0.500 % 0.0-0.9 [facility] Work Phone: [phone] Comment on above: IG% - Immature Granu locytes (promyelocytes, myelocytes and metamyelocytes) > 1% indicates that a LEFT SHIFT is Present. MCH (RBC) [Entitic mass] 28.7 pg 25.0-35.0 [facility] Work Phone: Nucleated RBC/100 WBC (Bld) [Ratio] 0 % 0-5 [facility] Work Phone: [phone] MCHC Auto (RBC) [Mass/Vol]on 11-25-2021 MCHC (RBC) [Mass/Vol] 33.3 g/dL 32-36 [facility] Work Phone: No Panel Informationon 11-25 MDMA (Ecstasy) Screen Negative [facility] Work Phone: [phone] Urine Barbiturates Screen Negative [facility] Work Phone: [phone] Urine Drug Screen Comment [facility] Work Phone: [phone] Comment on above: CONFIRMATORY TESTING FOR ALL [...] USE TESTMNEMONIC: [facility] Urine Methadone Screen Negative [facility] Work Phone: [phone] Estimated Creatinine Clearance Calc 161.50 ml/min [facility] Work Phone: [phone] Estimated GFR (MDRD) [facility] Work Phone: [phone] Comment on above: Test not performedAf rican Mauritanian GFR Calc Estimated GFR (MDRD) Non-Af [facility] Work Phone: [phone] Comment on above: Test not performedNo n- GFR Calc Ethyl Alcohol Level < 3.0 mg/dL [facility] Work Phone: [phone] Comment on above: The serum:whole bloo d ethanol ratio is approximately 1.14and varies slightly with hematocrit. Medical Alcohol reference interval and critical value innon-tolerant individuals; 50 - 100 Impairment 100 Intoxication 100 - 250 Severe Poisoning 250 - 400 Deep/possible fatal coma Platelets bldon 11-25-2021 Platelets (Bld) [#/Vol] 344 10*3/uL 150-450 [facility] Work Phone: Serum or plasma calcium rhona urement (mass/volume)on 11-25-2021 Calcium [Mass/Vol] 9.4 mg/dL 8.5-10.1 [facility] Work Phone: [phone] Serum or plasma creatinine m easurement (mass/volume)on 11-25-2021 Creatinine [Mass/Vol] 0.76 mg/dL 0.50-0.80 [facility] Work Phone: Serum or plasma urea nitroge n measurement (mass/volume)on 11-25-2021 Urea nitrogen [Mass/Vol] 15 mg/dL 7-18 [facility] Work Phone: Thin prep Papanicolaou smear with manual screeningon 11-25-2021 Thin prep Papanicolaou smear with manual screening 4 5-15 [facility] Work Phone: Urine phencyclidine (PCP) de tectionon 11-25-2021 Phencyclidine Ql (U) Negative [facility] Work Phone: Absolute lymphocyte counton 10-24-2021 Lymphocytes Auto (Unsp spec) [#/Vol] 1.63 10*3/uL 0.83-4.51 [facility] Work Phone: Basophil percentageon 2021 Basophils/100 WBC (Bld) 0.5 % 0-1 [facility] Work Phone: Chloride [Moles/Vol] 107 mmol/L 98-107 [facility] Work Phone: Eosinophils/100 WBC (Bld) 0.5 % 0-3 [facility] Work Phone: Glucose [Mass/Vol] 94 mg/dL 74-106 [facility] Work Phone: Neutrophils (Bld) [#/Vol] 6.0 10*3/uL 2.0-7.7 [facility] Work Phone: Neutrophils/100 WBC (Bld) 71.0 % 34-64 [facility] Work Phone: Potassium [Moles/Vol] 4.0 mmol/L 3.5-5.1 [facility] Work Phone: Sodium [Moles/Vol] 138 mmol/L 136-145 [facility] Work Phone: WBC (Bld) [#/Vol] 8.4 10*3/uL 4.5-13.0 [facility] Work Phone: Blood erythrocytes count (nu mber/volume)on 10-24-2021 RBC (Bld) [#/Vol] 5.45 10*6/uL 4.5-5.1 [facility]: [phone] Blood hemoglobin measurement (mass/volume)on 10-24-2021 Hemoglobin (Bld) [Mass/Vol] 15.7 g/dL 13.0-16.5 [facility] Work Phone: Blood lymphocytes/100 leukoc yteson 10-24-2021 Lymphocytes/100 WBC (Bld) 19.3 % 25-45 [facility] Work Phone: Blood monocytes/100 leukocyt eson 10-24-2021 Monocytes/100 WBC (Bld) 8.3 % 3-6 [facility] Work Phone: [phone] Blood platelet mean volumeon 10-24-2021 Platelet mean volume (Bld) [Entitic vol] 10.3 fL 6.2-12.0 [facility] Work Phone: Determination of erythrocyte mean corpuscular volume (MCV)on 10-24-2021 MCV (RBC) [Entitic vol] 84.4 fL 78-96 [facility] Work Phone: Hematocrit Auto (Bld) [Volum e fraction]on 10-24-2021 Hematocrit (Bld) [Volume fraction] 46.0 % 36-47 [facility] Work Phone: Laboratory - Chemistry and C hemistry - challengeon 10-24-2021 CO2 [Moles/Vol] 27.0 mmol/L 21.0-32.0 [facility] Work Phone: [phone] Urea nitrogen/Creatinine [Mass ratio] 10.5 mg/mg 10-20 [facility] Work Phone: [phone] Laboratory - Drug toxicology on 10-24-2021 Amphetamines Ql (U) Positive [facility] Work Phone: [phone] Benzodiazepines Ql (U) Negative [facility] Work Phone: [phone] Cannabinoids Screen Ql (U) Negative [facility] Work Phone: [phone] Cocaine Ql (U) Negative [facility] Work Phone: [phone] Opiates Ql (U) Negative [facility] Work Phone: [phone] Laboratory - Hematology and Cell countson 10-24-2021 Erythrocyte distribution width (RBC) [Entitic vol] 38.8 fL 35.1-43.9 [facility] Work Phone: [phone] Erythrocyte distribution width (RBC) [Ratio] 12.6 % 11.6-14.6 [facility] Work Phone: Immature granulocytes/100 WBC (Bld) 0.400 % 0.0-0.9 [facility] Work Phone: [phone] Comment on above: IG% - Immature Granu locytes (promyelocytes, myelocytes and metamyelocytes) > 1% indicates that a LEFT SHIFT is Present. MCH (RBC) [Entitic mass] 28.8 pg 25.0-35.0 [facility] Work Phone: [phone] Nucleated RBC/100 WBC (Bld) [Ratio] 0 % 0-5 [facility] Work Phone: [phone] MCHC Auto (RBC) [Mass/Vol]on 10-24-2021 MCHC (RBC) [Mass/Vol] 34.1 g/dL 32-36 [facility] Work Phone: [phone] Panel Informationon 10-24 Urine Barbiturates Screen Negative [facility] Work Phone: Urine Drug Screen Comment [facility] Work Phone: Comment on above: CONFIRMATORY [...] USE TESTMNEMONIC: [facility] Urine Methadone Screen Negative [facility] Work Phone: Urine Methamphetamine-MDMA Screen Negative [facility] Work Phone: [phone] Estimated Creatinine Clearance Calc 161.50 ml/min [facility] Work Phone: [phone] Estimated GFR (MDRD) [facility] Work Phone: Comment on above: Test not performedAf rican Mauritanian GFR Calc Estimated GFR (MDRD) Non-Af [facility] Work Phone: [phone] Comment on above: Test not performedNo n- GFR Calc Ethyl Alcohol Level < 3.0 mg/dL [facility] Work Phone: Comment on above: The serum:whole bloo d ethanol ratio is approximately 1.14and varies slightly with hematocrit. Medical Alcohol reference interval and critical value innon-tolerant individuals; 50 - 100 Impairment 100 Intoxication 100 - 250 Severe Poisoning 250 - 400 Deep/possible fatal coma SARS-CoV-2 Antigen (Rapid) [facility] Work Phone: Platelets bldon 10-24-2021 Platelets (Bld) [#/Vol] 286 10*3/uL 150-450 [facility] Work Phone: [phone] Serum or plasma calcium rhona urement (mass/volume)on 10-24-2021 Calcium [Mass/Vol] 9.2 mg/dL 8.5-10.1 [facility] Work Phone: Serum or plasma creatinine m easurement (mass/volume)on 10-24-2021 Creatinine [Mass/Vol] 0.76 mg/dL 0.50-0.80 [facility] Work Phone: Serum or plasma urea nitroge n measurement (mass/volume)on 10-24-2021 Urea nitrogen [Mass/Vol] 8 mg/dL 7-18 [facility] Work Phone: Thin prep Papanicolaou smear with manual screeningon 10-24-2021 Thin prep Papanicolaou smear with manual screening 4 5-15 [facility] Work Phone: Urine phencyclidine (PCP) de tectionon 10-24-2021 Phencyclidine Ql (U) Negative [facility] Work Phone: Absolute lymphocyte counton 10-12-2021 Lymphocytes Auto (Unsp spec) [#/Vol] 2.65 10*3/uL 0.83-4.51 [facility] Work Phone: Basophil percentageon 2021 Basophils/100 WBC (Bld) 0.4 % 0-1 [facility] Work Phone: Bilirubin [Mass/Vol] 0.30 mg/dL 0.20-1.00 [facility] Work Phone: Comment on above: For patients on eltr ombopag therapy, use of Dimension [place] TBIL is not recommended. Chloride [Moles/Vol] 108 mmol/L 98-107 [facility] Work Phone: Eosinophils/100 WBC (Bld) 0.5 % 0-3 [facility] Work Phone: Glucose [Mass/Vol] 101 mg/dL 74-106 [facility] Work Phone: Comment on above: Fasting Glucose resu lt from 100 to 125 mg/dL suggests IMPAIRED HOMEOSTASIS per A.D.A. criteria. Neutrophils (Bld) [#/Vol] 6.9 10*3/uL 2.0-7.7 [facility] Work Phone: Neutrophils/100 WBC (Bld) 66.1 % 34-64 [facility] Work Phone: [phone] Potassium [Moles/Vol] 4.0 mmol/L 3.5-5.1 [facility] Work Phone: Protein [Mass/Vol] 7.8 g/dL 6.4-8.2 [facility] Work Phone: [phone] Sodium [Moles/Vol] 141 mmol/L 136-145 [facility] Work Phone: [phone] WBC (Bld) [#/Vol] 10.4 10*3/uL 4.5-13.0 [facility] Work Phone: [phone] Blood erythrocytes count (nu mber/volume)on 10-12-2021 RBC (Bld) [#/Vol] 5.36 10*6/uL 4.5-5.1 [facility] Work Phone: Blood hemoglobin measurement (mass/volume)on 10-12-2021 Hemoglobin (Bld) [Mass/Vol] 15.5 g/dL 13.0-16.5 [facility] Work Phone: [phone] Blood lymphocytes/100 leukoc yteson 10-12-2021 Lymphocytes/100 WBC (Bld) 25.6 % 25-45 [facility] Work Phone: [phone] Blood monocytes/100 leukocyt eson 10-12-2021 Monocytes/100 WBC (Bld) 6.9 % 3-6 [facility] Work Phone: [phone] Blood platelet mean volumeon 10-12-2021 Platelet mean volume (Bld) [Entitic vol] 9.9 fL 6.2-12.0 [facility] Work Phone: Determination of erythrocyte mean corpuscular volume (MCV)on 10-12-2021 MCV (RBC) [Entitic vol] 84.0 fL 78-96 [facility] Work Phone: Hematocrit Auto (Bld) [Volum e fraction]on 10-12-2021 Hematocrit (Bld) [Volume fraction] 45.0 % 36-47 [facility] Work Phone: Laboratory - Chemistry and C hemistry - challengeon 10-12-2021 ALP [Catalytic activity/Vol] 166 U/L 74-390 [facility] Work Phone: ALT [Catalytic activity/Vol] 75 U/L 16-61 [facility] Work Phone: [phone] CO2 [Moles/Vol] 25.0 mmol/L 21.0-32.0 [facility] Work Phone: Globulin (S) [Mass/Vol] 3.5 g/dL 2.2-4.2 [facility] Work Phone: [phone] Urea nitrogen/Creatinine [Mass ratio] 19.7 mg/mg 10-20 [facility] Work Phone: [phone] Laboratory - Drug toxicology on 10-12-2021 Amphetamines Ql (U) Positive [facility] Work Phone: [phone] Benzodiazepines Ql (U) Negative [facility] Work Phone: [phone] Cannabinoids Screen Ql (U) Negative [facility] Work Phone: [phone] Cocaine Ql (U) Negative [facility] Work Phone: Opiates Ql (U) Negative [facility] Work Phone: [phone] Laboratory - Hematology and Cell countson 10-12-2021 Erythrocyte distribution width (RBC) [Entitic vol] 38.7 fL 35.1-43.9 [facility] Work Phone: [phone] Erythrocyte distribution width (RBC) [Ratio] 12.7 % 11.6-14.6 [facility] Work Phone: [phone] Immature granulocytes/100 WBC (Bld) 0.500 % 0.0-0.9 [facility] Work Phone: [phone] Comment on above: IG% - Immature Granu locytes (promyelocytes, myelocytes and metamyelocytes) > 1% indicates that a LEFT SHIFT is Present. MCH (RBC) [Entitic mass] 28.9 pg 25.0-35.0 [facility] Work Phone: Nucleated RBC/100 WBC (Bld) [Ratio] 0 % 0-5 [facility] Work Phone: [phone] MCHC Auto (RBC) [Mass/Vol]on 10-12-2021 MCHC (RBC) [Mass/Vol] 34.4 g/dL 32-36 [facility] Work Phone: [phone] Panel Informationon 10-12 Urine Barbiturates Screen Negative [facility] Work Phone: [phone] Urine Drug Screen Comment [facility] Work Phone: [phone] Comment on above: CONFIRMATORY TESTING FOR ALL [...] USE TESTMNEMONIC: [facility] Urine Methadone Screen Negative [facility] Work Phone: [phone] Urine Methamphetamine-MDMA Screen Positive [facility] Work Phone: [phone] Estimated Creatinine Clearance Calc 161.50 ml/min [facility] Work Phone: [phone] Estimated GFR (MDRD) [facility] Work Phone: [phone] Comment on above: Test not performedAf rican Mauritanian GFR Calc Estimated GFR (MDRD) Non-Af [facility] Work Phone: [phone] Comment on above: Test not performedNo n- GFR Calc Ethyl Alcohol Level < 3.0 mg/dL [facility] Work Phone: [phone] Comment on above: The serum:whole bloo d ethanol ratio is approximately 1.14and varies slightly with hematocrit. Medical Alcohol reference interval and critical value innon-tolerant individuals; 50 - 100 Impairment 100 Intoxication 100 - 250 Severe Poisoning 250 - 400 Deep/possible fatal coma SARS-CoV-2 Antigen (Rapid) [facility] Work Phone: Platelets bldon 10-12-2021 Platelets (Bld) [#/Vol] 329 10*3/uL 150-450 [facility] Work Phone: Serum or plasma albumin rhona urement (mass/volume)on 10-12-2021 Albumin [Mass/Vol] 4.3 g/dL 3.2-5.0 [facility] Work Phone: Serum or plasma albumin/glob ulin mass ratioon 10-12-2021 Albumin/Globulin [Mass ratio] 1.2 {ratio} 0.9-2.4 [facility] Work Phone: [phone] Serum or plasma calcium rhona urement (mass/volume)on 10-12-2021 Calcium [Mass/Vol] 9.4 mg/dL 8.5-10.1 [facility] Work Phone: Serum or plasma creatinine m easurement (mass/volume)on 10-12-2021 Creatinine [Mass/Vol] 0.76 mg/dL 0.50-0.80 [facility] Work Phone: Serum or plasma urea nitroge n measurement (mass/volume)on 10-12-2021 Urea nitrogen [Mass/Vol] 15 mg/dL 7-18 [facility] Work Phone: Thin prep Papanicolaou smear with manual screeningon 10-12-2021 Thin prep Papanicolaou smear with manual screening 24 U/L 15-37 [facility] Work Phone: Thin prep Papanicolaou smear with manual screening 8 5-15 [facility] Work Phone: Urine phencyclidine (PCP) de tectionon 10-12-2021 Phencyclidine Ql (U) Negative [facility] Work Phone: Absolute lymphocyte counton 09-08-2021 Lymphocytes Auto (Unsp spec) [#/Vol] 2.28 10*3/uL 0.83-4.51 [facility] Work Phone: Basophil percentageon 2021 Basophils/100 WBC (Bld) 0.5 % 0-1 [facility] Work Phone: Chloride [Moles/Vol] 105 mmol/L 98-107 [facility] Work Phone: Eosinophils/100 WBC (Bld) 0.6 % 0-3 [facility] Work Phone: Glucose [Mass/Vol] 103 mg/dL 74-106 [facility] Work Phone: Comment on above: Fasting Glucose resu lt from 100 to 125 mg/dL suggests IMPAIRED HOMEOSTASIS per A.D.A. criteria.Please note revised GLUCOSE reference range effective 2017. Neutrophils (Bld) [#/Vol] 5.5 10*3/uL 2.0-7.7 [facility] Work Phone: Neutrophils/100 WBC (Bld) 64.6 % 34-64 [facility] Work Phone: Potassium [Moles/Vol] 4.0 mmol/L 3.5-5.1 [facility] Work Phone: Sodium [Moles/Vol] 140 mmol/L 136-145 [facility] Work Phone: WBC (Bld) [#/Vol] 8.5 10*3/uL 4.5-13.0 [facility] Work Phone: Blood erythrocytes count (nu mber/volume)on 09-08-2021 RBC (Bld) [#/Vol] 5.43 10*6/uL 4.5-5.1 [facility] Work Phone: Blood hemoglobin measurement (mass/volume)on 09-08-2021 Hemoglobin (Bld) [Mass/Vol] 15.6 g/dL 13.0-16.5 [facility] Work Phone: Blood lymphocytes/100 leukoc yteson 09-08-2021 Lymphocytes/100 WBC (Bld) 26.9 % 25-45 [facility] Work Phone: Blood monocytes/100 leukocyt eson 09-08-2021 Monocytes/100 WBC (Bld) 6.8 % 3-6 [facility] Work Phone: Blood platelet mean volumeon 09-08-2021 Platelet mean volume (Bld) [Entitic vol] 9.9 fL 6.2-12.0 [facility] Work Phone: Determination of erythrocyte mean corpuscular volume (MCV)on 09-08-2021 MCV (RBC) [Entitic vol] 83.8 fL 78-96 [facility] Work Phone: Hematocrit Auto (Bld) [Volum e fraction]on 09-08-2021 Hematocrit (Bld) [Volume fraction] 45.5 % 36-47 [facility] Work Phone: Laboratory - Chemistry and C hemistry - challengeon 09-08-2021 CO2 [Moles/Vol] 27.0 mmol/L 21.0-32.0 [facility] Work Phone: Urea nitrogen/Creatinine [Mass ratio] 23.0 mg/mg 10-20 [facility] Work Phone: Laboratory - Drug toxicology on 09-08-2021 Amphetamines Ql (U) Positive [facility] Work Phone: Benzodiazepines Ql (U) Negative [facility] Work Phone: Cannabinoids Screen Ql (U) Negative [facility] Work Phone: Cocaine Ql (U) Negative [facility] Work Phone: Opiates Ql (U) Negative [facility] Work Phone: Laboratory - Hematology and Cell countson 09-08-2021 Erythrocyte distribution width (RBC) [Entitic vol] 38.5 fL 35.1-43.9 [facility] Work Phone: [phone] Erythrocyte distribution width (RBC) [Ratio] 12.7 % 11.6-14.6 [facility] Work Phone: Immature granulocytes/100 WBC (Bld) 0.600 % 0.0-0.9 [facility] Work Phone: [phone] Comment on above: IG% - Immature Granu locytes (promyelocytes, myelocytes and metamyelocytes) > 1% indicates that a LEFT SHIFT is Present. MCH (RBC) [Entitic mass] 28.7 pg 25.0-35.0 [facility] Work Phone: [phone] Nucleated RBC/100 WBC (Bld) [Ratio] 0 % 0-5 [facility] Work Phone: [phone] MCHC Auto (RBC) [Mass/Vol]on 09-08-2021 MCHC (RBC) [Mass/Vol] 34.3 g/dL 32-36 [facility] Work Phone: [phone] Panel Informationon 09-08 Estimated Creatinine Clearance Calc 175.35 ml/min [facility] Work Phone: [phone] Estimated GFR (MDRD) [facility] Work Phone: [phone] Comment on above: Test not performedAf rican Mauritanian GFR Calc Estimated GFR (MDRD) Non-Af [facility] Work Phone: [phone] Comment on above: Test not performedNo n- GFR Calc Ethyl Alcohol Level < 3.0 mg/dL [facility] Work Phone: [phone] Comment on above: The serum:whole bloo d ethanol ratio is approximately 1.14and varies slightly with hematocrit. Medical Alcohol reference interval and critical value innon-tolerant individuals; 50 - 100 Impairment 100 Intoxication 100 - 250 Severe Poisoning 250 - 400 Deep/possible fatal coma Urine Barbiturates Screen Negative [facility] Work Phone: [phone] Urine Drug Screen Comment [facility] Work Phone: [phone] Comment on above: CONFIRMATORY TESTING FOR ALL [...] USE TESTMNEMONIC: [facility] Urine Methadone Screen Negative [facility] Work Phone: Urine Methamphetamine-MDMA Screen Negative [facility] Work Phone: Platelets bldon 09-08-2021 Platelets (Bld) [#/Vol] 318 10*3/uL 150-450 [facility] Work Phone: Serum or plasma calcium rhona urement (mass/volume)on 09-08-2021 Calcium [Mass/Vol] 9.6 mg/dL 8.5-10.1 [facility] Work Phone: Serum or plasma creatinine m easurement (mass/volume)on 09-08-2021 Creatinine [Mass/Vol] 0.70 mg/dL 0.50-0.80 [facility] Work Phone: Serum or plasma urea nitroge n measurement (mass/volume)on 09-08-2021 Urea nitrogen [Mass/Vol] 16 mg/dL 7-18 [facility] Work Phone: Thin prep Papanicolaou smear with manual screeningon 09-08-2021 Thin prep Papanicolaou smear with manual screening 8 5-15 [facility] Work Phone: Urine phencyclidine (PCP) de tectionon 09-08-2021 Phencyclidine Ql (U) Negative [facility] Work Phone: Vital Signs Date Time Vital Sign Value Performing Clinician Facility 03-17-2025 03:29-0400 Body temperature 98.3 [degF] Dr. Sallie Solorzano MD Work Phone: [facility] 03-17-2025 03:29-0400 Diastolic blood pressure 87 mm[Hg] Dr. Sallie Solorzano MD Work Phone: [facility] 03-17-2025 03:29-0400 Heart rate 99 /min Dr. Sallie Solorzano MD Work Phone: 4(334)447-053619 [place] [address] 03-17-2025 03:29-0400 Respiratory rate 18 /min Dr. Sallie Solorzano MD Work Phone: 4(704)497-429619 [place] [address] 03-17-2025 03:29-0400 SaO2% (BldA) [Mass fraction] 97 % Dr. Sallie Solorzano MD Work Phone: 2(813)870-813019 [place] [address] 03-17-2025 03:29-0400 Systolic blood pressure 141 mm[Hg] Dr. Sallie Solorzano MD Work Phone: 5(520)119-030619 [place] [address] 03-17-2025 02:16-0400 Body height 180.[address] Sallie Solorzano MD Work Phone: 3(240)661-019219 [place] [address] 03-17-2025 02:16-0400 Body mass index (BMI) [Percentile] Per age and sex 10 % Dr. Sallie Solorzano MD Work Phone: 8(165)997-460119 [place] [address] 03-17-2025 02:16-0400 Body mass index (BMI) [Ratio] 19.5 kg/m2 Dr. Sallie Solorzano MD Work Phone: 6(346)665-210719 [place] [address] 03-17-2025 02:16-0400 Body weight 63.[address] Sallie Solorzano MD Work Phone: 9(725)454-028819 [place] [address] 01-02-2025 21:52-0400 Body temperature 98.2 [degF] Dr. Sallie Solorzano MD Work Phone: 3(343)432-861419 [place] [address] 01-02-2025 21:52-0400 Diastolic blood pressure 93 mm[Hg] Dr. Sallie Solorzano MD Work Phone: 1(807)765-493519 [place] [address] 01-02-2025 21:52-0400 Heart rate 86 /min Dr. Sallie Solorzano MD Work Phone: 4(848)212-281019 [place] [address] 01-02-2025 21:52-0400 Respiratory rate 18 /min Dr. Sallie Solorzano MD Work Phone: 4(776)431-734819 [place] [address] 01-02-2025 21:52-0400 SaO2% (BldA) [Mass fraction] 99 % Dr. Sallie Solorzano MD Work Phone: [facility] 01-02-2025 21:52-0400 Systolic blood pressure 160 mm[Hg] Dr. Sallie Solorzano MD Work Phone: [facility] 01-02-2025 17:30-0400 Body mass index (BMI) [Percentile] Per age and sex 99.8 % Dr. Sallie Solorzano MD Work Phone: [facility] 01-02-2025 17:30-0400 Body mass index (BMI) [Ratio] 43.3 kg/m2 Dr. Sallie Solorzano MD Work Phone: [facility] 01-02-2025 17:30-0400 Body weight 140.[address] Sallie Solorzano MD Work Phone: [facility] 04-13-2024 14:03-0400 Body temperature 98.1 [degF] Krislyn Aberegg PA Work Phone: [facility] 04-13-2024 14:03-0400 Body weight 124.6 kg Krislyn Aberegg PA Work Phone: [facility] 04-13-2024 14:03-0400 Diastolic blood pressure 84 mm[Hg] Krislyn Aberegg PA Work Phone: [facility] 04-13-2024 14:03-0400 Heart rate 65 /min Krislyn Aberegg PA Work Phone: [facility] 04-13-2024 14:03-0400 Respiratory rate 16 /min Krislyn Aberegg PA Work Phone: [facility] 04-13-2024 14:03-0400 SaO2% (BldA) [Mass fraction] 98 % Krislyn Aberegg PA Work Phone: [facility] 04-13-2024 14:03-0400 Systolic blood pressure 132 mm[Hg] Krislyn Aberegg PA Work Phone: [facility] 12-27-2022 18:00-0400 Diastolic blood pressure 78 mm[Hg] [facility] 12-27-2022 18:00-0400 Heart rate 98 /min [facility] 12-27-2022 18:00-0400 Respiratory rate 16 /min [facility] 12-27-2022 18:00-0400 SaO2% (BldA) [Mass fraction] 100 % [facility] 12-27-2022 18:00-0400 Systolic blood pressure 134 mm[Hg] [facility] 12-26-2022 23:57-0400 Body temperature 97.8 [degF] [facility] 12-26-2022 15:32-0400 Body height 180.34 cm [facility] 12-26-2022 15:32-0400 Body mass index (BMI) [Percentile] Per age and sex 99.8 % [facility] 12-26-2022 15:32-0400 Body mass index (BMI) [Ratio] 42.1 kg/m2 [facility] 12-26-2022 15:32-0400 Body weight 137.07 kg [facility] 12-24-2022 16:00-0400 Diastolic blood pressure 90 mm[Hg] [facility] 12-24-2022 16:00-0400 Heart rate 90 /min [facility] 12-24-2022 16:00-0400 Respiratory rate 16 /min [facility] 12-24-2022 16:00-0400 SaO2% (BldA) [Mass fraction] 98 % [facility] 12-24-2022 16:00-0400 Systolic blood pressure 140 mm[Hg] [facility] 12-24-2022 14:15-0400 Body mass index (BMI) [Percentile] Per age and sex 99.8 % [facility] 12-24-2022 14:15-0400 Body mass index (BMI) [Ratio] 42.5 kg/m2 [facility] 12-24-2022 14:15-0400 Body temperature 97.6 [degF] [facility] 12-24-2022 14:15-0400 Body weight 138.34 kg [facility] 08-06-2022 15:41-0500 Body temperature 98.2 [degF] Ashley Ruiz MD Work Phone: [facility] 08-06-2022 15:41-0500 Body weight 134.4 kg Ashley Ruiz MD Work Phone: [facility] 08-06-2022 15:41-0500 Diastolic blood pressure 79 mm[Hg] Ashley Ruiz MD Work Phone: [facility] 08-06-2022 15:41-0500 Heart rate 91 /min Ashley Ruiz MD Work Phone: [facility] 08-06-2022 15:41-0500 Respiratory rate 20 /min Ashley Ruiz MD Work Phone: [facility] 08-06-2022 15:41-0500 SaO2% (BldA) [Mass fraction] 99 % Ashley Ruiz MD Work Phone: [facility] 08-06-2022 15:41-0500 Systolic blood pressure 134 mm[Hg] Ashley Ruiz MD Work Phone: [facility] 06-28-2022 12:43-0400 Diastolic blood pressure 78 mm[Hg] [facility] Work Phone: 06-28-2022 12:43-0400 Heart rate 66 /min [facility] Work Phone: 06-28-2022 12:43-0400 Respiratory rate 18 /min [facility] Work Phone: 06-28-2022 12:43-0400 SaO2% (BldA) [Mass fraction] 99 % [facility] Work Phone: 06-28-2022 12:43-0400 Systolic blood pressure 115 mm[Hg] [facility] Work Phone: 06-28-2022 09:44-0400 Body height 180.34 cm [facility] Work Phone: 06-28-2022 09:44-0400 Body mass index (BMI) [Percentile] Per age and sex 99.7 % [facility] Work Phone: 06-28-2022 09:44-0400 Body mass index (BMI) [Ratio] 40.8 kg/m2 [facility] Work Phone: 06-28-2022 09:44-0400 Body temperature 98.2 [degF] [facility] Work Phone: 06-28-2022 09:44-0400 Body weight 133 kg [facility] Work Phone: 06-23-2022 09:04-0400 Diastolic blood pressure 99 mm[Hg] [facility] Work Phone: 06-23-2022 09:04-0400 Heart rate 87 /min [facility] Work Phone: 06-23-2022 09:04-0400 Respiratory rate 16 /min [facility] Work Phone: 06-23-2022 09:04-0400 SaO2% (BldA) [Mass fraction] 96 % [facility] Work Phone: 06-23-2022 09:04-0400 Systolic blood pressure 143 mm[Hg] [facility] Work Phone: 06-23-2022 06:00-0400 Body temperature 98.1 [degF] [facility] Work Phone: 06-21-2022 13:06-0400 Body height 177.8 cm [facility] Work Phone: 06-21-2022 13:06-0400 Body mass index (BMI) [Percentile] Per age and sex 99.8 % [facility] Work Phone: 06-21-2022 13:06-0400 Body mass index (BMI) [Ratio] 42 kg/m2 [facility] Work Phone: 06-21-2022 13:06-0400 Body weight 133 kg [facility] Work Phone: 06-14-2022 03:41-0400 Body temperature 97 [degF] Chapis Son DO Work Phone: [facility] 06-14-2022 03:41-0400 Diastolic blood pressure 89 mm[Hg] Chapis Son DO Work Phone: [facility] 06-14-2022 03:41-0400 Heart rate 66 /min Chapis Son DO Work Phone: [facility] 06-14-2022 03:41-0400 Respiratory rate 18 /min Chapis Son DO Work Phone: [facility] 06-14-2022 03:41-0400 SaO2% (BldA) [Mass fraction] 97 % Chapis Son DO Work Phone: [facility] 06-14-2022 03:41-0400 Systolic blood pressure 145 mm[Hg] Chapis Son DO Work Phone: [facility] 06-13-2022 16:01-0400 Body weight 132 kg Chapis Son DO Work Phone: [facility] 01-08-2022 19:15-0400 Body temperature 98.2 [degF] [facility] Work Phone: 01-08-2022 19:15-0400 Diastolic blood pressure 72 mm[Hg] [facility] Work Phone: 01-08-2022 19:15-0400 Heart rate 63 /min [facility] Work Phone: 01-08-2022 19:15-0400 Respiratory rate 16 /min [facility] Work Phone: 01-08-2022 19:15-0400 SaO2% (BldA) [Mass fraction] 98 % [facility] Work Phone: 01-08-2022 19:15-0400 Systolic blood pressure 132 mm[Hg] [facility] Work Phone: 01-08-2022 15:08-0400 Body height 177.8 cm [facility] Work Phone: 01-08-2022 15:08-0400 Body mass index (BMI) [Ratio] 40.1 kg/m2 [facility] Work Phone: 01-08-2022 15:08-0400 Body weight 127 kg [facility] Work Phone: 12-03-2021 21:50-0400 Body height 175.26 cm [facility] Work Phone: 12-03-2021 21:50-0400 Body mass index (BMI) [Ratio] 39.9 kg/m2 [facility] Work Phone: 12-03-2021 21:50-0400 Body temperature 97.4 [degF] [facility] Work Phone: 12-03-2021 21:50-0400 Body weight 122.46 kg [facility] Work Phone: 12-03-2021 21:50-0400 Diastolic blood pressure 81 mm[Hg] [facility] Work Phone: 12-03-2021 21:50-0400 Heart rate 89 /min [facility] Work Phone: 12-03-2021 21:50-0400 Respiratory rate 18 /min [facility] Work Phone: 12-03-2021 21:50-0400 SaO2% (BldA) [Mass fraction] 97 % [facility] Work Phone: 12-03-2021 21:50-0400 Systolic blood pressure 137 mm[Hg] [facility] Work Phone: 11-26-2021 00:08-0400 Diastolic blood pressure 82 mm[Hg] [facility] Work Phone: 11-26-2021 00:08-0400 Heart rate 76 /min [facility] Work Phone: 11-26-2021 00:08-0400 Respiratory rate 16 /min [facility] Work Phone: 11-26-2021 00:08-0400 SaO2% (BldA) [Mass fraction] 97 % [facility] Work Phone: 11-26-2021 00:08-0400 Systolic blood pressure 141 mm[Hg] [facility] Work Phone: 11-25-2021 19:41-0400 Body mass index (BMI) [Ratio] 40.7 kg/m2 [facility] Work Phone: 11-25-2021 19:41-0400 Body temperature 98.6 [degF] [facility] Work Phone: 11-25-2021 19:41-0400 Body weight 125.19 kg [facility] Work Phone: 10-25-2021 13:08-0500 Body temperature 98.1 [degF] [facility] Work Phone: 10-25-2021 13:08-0500 Diastolic blood pressure 86 mm[Hg] [facility] Work Phone: 10-25-2021 13:08-0500 Heart rate 94 /min [facility] Work Phone: 10-25-2021 13:08-0500 Respiratory rate 18 /min [facility] Work Phone: 10-25-2021 13:08-0500 SaO2% (BldA) [Mass fraction] 95 % [facility] Work Phone: 10-25-2021 13:08-0500 Systolic blood pressure 124 mm[Hg] [facility] Work Phone: 10-24-2021 16:34-0500 Body mass index (BMI) [Ratio] 39 kg/m2 [facility] Work Phone: 10-24-2021 16:34-0500 Body weight 120 kg [facility] Work Phone: 10-15-2021 18:22-0500 Diastolic blood pressure 82 mm[Hg] [facility] Work Phone: 10-15-2021 18:22-0500 Heart rate 88 /min [facility] Work Phone: 10-15-2021 18:22-0500 Respiratory rate 16 /min [facility] Work Phone: 10-15-2021 18:22-0500 SaO2% (BldA) [Mass fraction] 98 % [facility] Work Phone: 10-15-2021 18:22-0500 Systolic blood pressure 136 mm[Hg] [facility] Work Phone: 10-15-2021 05:17-0500 Body temperature 97.7 [degF] [facility] Work Phone: 10-12-2021 20:52-0500 Body mass index (BMI) [Ratio] 39 kg/m2 [facility] Work Phone: 10-12-2021 20:52-0500 Body weight 120 kg [facility] Work Phone: 09-11-2021 20:40-0500 Body temperature 97.16 [degF] DR CLAUDIA BURNHAM DO [facility] 09-11-2021 20:40-0500 Diastolic blood pressure 85 mm[Hg] DR CLAUDIA BURNHAM DO [facility] 09-11-2021 20:40-0500 Heart rate 80 /min DR CLAUDIA BURNHAM DO [facility] 09-11-2021 20:40-0500 Respiratory rate 18 /min DR CLAUDIA BURNHAM DO [facility] 09-11-2021 20:40-0500 Systolic blood pressure 132 mm[Hg] DR CLAUDIA BURNHAM DO [facility] 09-08-2021 02:30-0500 Diastolic blood pressure 78 mm[Hg] [facility] Work Phone: 09-08-2021 02:30-0500 Heart rate 80 /min [facility] Work Phone: 09-08-2021 02:30-0500 Respiratory rate 16 /min [facility] Work Phone: 09-08-2021 02:30-0500 Systolic blood pressure 136 mm[Hg] [facility] Work Phone: 09-07-2021 22:59-0500 Body mass index (BMI) [Ratio] 37.3 kg/m2 [facility] Work Phone: 09-07-2021 22:59-0500 Body temperature 97.6 [degF] [facility] Work Phone: 09-07-2021 22:59-0500 Body weight 114.75 kg [facility] Work Phone: 09-07-2021 22:59-0500 SaO2% (BldA) [Mass fraction] 100 % [facility] Work Phone: Encounters Encounter Date Encounter Type Care Provider Facility Start: 03-17-2025 End: 03-17-2025 Emergency department patient visit Dr. Sallie Solorzano MD Work Phone: -Emergency Department Work Phone: Start: 01-02-2025 End: 01-02-2025 Emergency department patient visit Dr. Marek Booker DO -Emergency Department Work Phone: Start: 08-20-2024 End: 08-20-2024 ambulatory SALLIE SOLORZANO [facility] Start: 08-14-2024 End: 08-14-2024 ambulatory FABBY [facility] Start: 04-25-2024 End: 04-25-2024 ambulatory FABBY H [facility] Start: 04-13-2024 End: 04-13-2024 ambulatory SALLIE MENDOZAALL RASHAD Facility:[facility] Start: 04-13-2024 End: 04-13-2024 Patient encounter procedure Christos NELSON Work Phone: [facility] Comment on above: Skin infection (Prim dominique Dx) Start: 02-12-2024 End: 02-12-2024 ambulatory FABBY [facility] Start: 12-27-2023 End: 12-27-2023 ambulatory [place] [facility] Start: 11-29-2023 End: 11-29-2023 ambulatory SALLIE R [facility] Start: 10-31-2023 End: 10-31-2023 ambulatory SALLIE R [facility] Start: 10-22-2023 End: 10-22-2023 ambulatory [facility] Start: 10-08-2023 End: 10-08-2023 ambulatory FABBY [facility] Start: 09-20-2023 End: 09-20-2023 ambulatory SELF REFERRED [facility] Start: 08-15-2023 End: 08-16-2023 ambulatory FABBY [facility] Facility:[facility] Start: 06-20-2023 End: 10-18-2023 ambulatory BRITTANY MAR APRN Facility:[facility] Start: 05-30-2023 End: 05-31-2023 ambulatory SALLIE~[id number] RASHAD RIZO Facility:[facility] Start: 03-22-2023 End: 03-23-2023 ambulatory FABBY [facility] Facility:[facility] Start: 01-24-2023 End: 01-24-2023 Subsequent hospital visit by physician Arleen [facility] Work Phone: Radiology Comment on above: Acute cough [R05.1] Start: 12-26-2022 End: 12-27-2022 [facility] Start: 12-24-2022 End: 12-24-2022 Emergency department patient visit [facility] Start: 08-06-2022 End: 08-06-2022 Emergency department patient visit Ashley Ruiz MD Work Phone: [facility] Start: 06-28-2022 End: 06-28-2022 [facility] Start: 06-23-2022 End: 06-26-2022 Evaluation and management of inpatient REFERRED [facility] Start: 06-21-2022 End: 06-23-2022 [facility] Start: 06-13-2022 End: 06-14-2022 Emergency department patient visit Chapis H Kamaljit DO Work Phone: [facility] Start: 01-08-2022 End: 01-08-2022 Emergency department patient visit [facility] Start: 12-03-2021 End: 12-04-2021 [facility] Start: 11-26-2021 End: 12-03-2021 Evaluation and management of inpatient [facility] Start: 11-25-2021 End: 11-26-2021 Emergency department patient visit [facility] Start: 10-24-2021 End: 10-25-2021 Emergency department patient visit [facility] Start: 10-12-2021 End: 10-15-2021 Emergency department patient visit [facility] Start: 09-11-2021 End: 09-11-2021 Emergency department patient visit DR CLAUDIA BURNHAM DO [facility] Start: 09-07-2021 End: 09-08-2021 [facility] Procedures Date Procedure Procedure Detail Performing Clinician Start: 01-02-[address] Sallie Solorzano MD Work Phone: Start: 01-02-2025 Methadone measuremen t, urine Dr. Sallie Solorzano MD Work Phone: Start: 01-24-2023 Radiologic exam ches t 2 views Evan Oneill [employer] Work Phone: Start: 08-06-2022 DRUGS OF ABUSE WITH THC, URINE-FABIO Ruiz MD Work Phone: Start: 06-13-2022 DRUGS OF ABUSE WITH THC, URINE-FABIO Chapis Rendon Son DO Work Phone: Start: 01-08-2022 End: 01-08-2022 [...] Pertussis Vaccines (7 - Td or Tdap) [facility] Start: 05-16-2027 Urine microalbumin profile DTaP,Tdap,Td Vaccine (7 - Td or Tdap) [facility] Start: 03-17-2025 [facility] Start: 01-02-2025 [facility] Start: 01-02-2025 [facility] Start: 05-04-2024 Covid-19 Vaccine () Covid-19 Vaccine () [facility] Start: 05-04-2024 Influenza vaccination Influenza Vaccine (#1) [facility] Start: 12-22-2023 Anxiety Screening Anxiety Screening [facility] Start: 12-22-2023 Depression Screening Depression Screening [facility] Start: 12-22-2023 Hepatitis C screening Hepatitis C Screening [facility] Start: 12-22-2023 HIV screening HIV Screening [facility] Start: 11-26-2023 Meningococcal B Vaccine: Consider Based On Risk (2 of 2 - Risk Bexsero 2-dose series) Meningococcal B Vaccine: Consider Based On Risk (2 of 2 - Risk Bexsero 2-dose series) [facility] Start: 05-04-2023 Covid-19 Vaccine () Covid-19 Vaccine () [facility] Start: 12-26-2022 Lamotrigine measurement [facility] Start: 12-26-2022 Referral to service [facility] Start: 12-26-2022 End: 12-26-2022 Suicide precautions [facility] Start: 06-28-2022 Suicide precautions [facility] Work Phone: Start: 06-21-2022 Referral to service [facility] Work Phone: Start: 06-21-2022 End: 06-21-2022 Suicide precautions [facility] Work Phone: Start: 06-16-2022 End: 06-16-2022 ambulatory 06/16/2022 Telehealth Psychiatry Fabby Mason, 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 [address] [facility] [address] [place] [address] Psych Outpatient - [place] Start: 05-04-2022 FLU (#1) FLU (#1) [facility] Start: 12-31-2021 Well Visit Well Visit [facility] Start: 2021 MenACWY (2 - 2-dose series) MenACWY (2 - 2-dose series) [facility] Start: 2021 MenB (1 of 2 - MenB 2-Dose Series) MenB (1 of 2 - MenB 2-Dose Series) [facility] Start: 10-21-2021 AIMS 6 Month Check AIMS 6 Month Check [facility] Start: 08-17-2021 COVID-19 (3 - Booster for Pfizer series) COVID-19 (3 - Booster for Pfizer series) [facility] Start: 2020 Vision Screening Vision Screening [facility] Start: 12-22-2019 Peds To Adult Transition Annual Assessment Peds To Adult Transition Annual Assessment [facility] Start: 2017 Peds To Adult Transition Initial Discussion Peds To Adult Transition Initial Discussion [facility] Patient Education [facility] Work Phone: Patient referral [facility] Work Phone: Immunizations Immunization Date Immunization Notes Care Provider [facility] 10-29-2023 influenza virus vacc ine, unspecified formulation Christos NELSON Work Phone: [facility] 08-06-2022 influenza, injectabl e, quadrivalent, preservative free Ashley Ruiz MD Work Phone: [facility] [place] 06-22-2021 PFIZER (purple cap) COVID-19, mRNA, LNP-S, 30mcg/0.3mL dose Chapis Son DO Work Phone: [facility] [place] 05-30-2021 influenza, injectabl e, quadrivalent, preservative free Chapis Son DO Work Phone: [facility] [place] 05-30-2021 PFIZER (purple cap) COVID-19, mRNA, LNP-S, 30mcg/0.3mL dose Chapis Son DO Work Phone: [facility] [place] 07-16-2019 hepatitis B vaccine, pediatric or pediatric/adolescent dosage Chapis Son DO Work Phone: [facility] [place] 12-25-2018 Human Papillomavirus 9-valent vaccine Chapis Son DO Work Phone: [facility] [place] 05-22-2018 Human Papillomavirus 9-valent vaccine Chapis Son DO Work Phone: [facility] [place] 05-16-2017 meningococcal polysaccharide (groups A, C, Y and W-135) diphtheria toxoid conjugate vaccine (MCV4P) Chapis Son DO Work Phone: [facility] [place] 05-16-2017 tetanus toxoid, redu luz maria diphtheria toxoid, and acellular pertussis vaccine, adsorbed Chapis Son DO Work Phone: [facility] [place] 09-22-2015 influenza, live, intranasal, quadrivalent Chapis Son DO Work Phone: [facility] [place] 06-17-2012 influenza virus vacc ine, live, attenuated, for intranasal use Chapis Son DO Work Phone: [facility] [place] 05-15-2012 influenza virus vacc ine, live, attenuated, for intranasal use Chapis Son DO Work Phone: [facility] [place] 12-26-2010 diphtheria, tetanus toxoids and acellular pertussis vaccine Chapis Son DO Work Phone: [facility] [place] 12-26-2010 measles, mumps, rube lla, and varicella virus vaccine Chapis Son DO Work Phone: [facility] [place] 12-26-2010 poliovirus vaccine, inactivated Chapis Son DO Work Phone: [facility] [place] 09-30-2009 hepatitis A vaccine, pediatric/adolescent dosage, 2 dose schedule Chapis Son DO Work Phone: [facility] [place] 09-30-2009 pneumococcal conjuga te vaccine, 7 valent Chapis Son DO Work Phone: [facility] [place] 07-23-2007 diphtheria, tetanus toxoids and acellular pertussis vaccine Chapis Son DO Work Phone: [facility] [place] 07-23-2007 haemophilus influenz ae type b vaccine, HbOC conjugate Christos NELSON Work Phone: [facility] 07-23-2007 haemophilus influenz ae type b vaccine, PRP-T conjugate Chapis Son DO Work Phone: [facility] [place] 04-01-2007 hepatitis A vaccine, pediatric/adolescent dosage, 2 dose schedule Chapis Son DO Work Phone: [facility] [place] 04-01-2007 hepatitis A vaccine, unspecified formulation Chapis Son DO Work Phone: [facility] [place] 12-31-2006 diphtheria, tetanus toxoids and acellular pertussis vaccine Chapis Son DO Work Phone: [facility] [place] 12-31-2006 DTaP-hepatitis B and poliovirus vaccine Chapis Son DO Work Phone: [facility] [place] 12-31-2006 haemophilus influenz ae type b vaccine, HbOC conjugate Christos Orozco PA Work Phone: [facility] 12-31-2006 haemophilus influenz ae type b vaccine, PRP-T conjugate Chapis Son DO Work Phone: [facility] [place] 12-31-2006 hepatitis B vaccine, pediatric or pediatric/adolescent dosage Chapis Son DO Work Phone: [facility] [place] 12-31-2006 measles, mumps and rubella virus vaccine Chapis Son DO Work Phone: [facility] [place] 12-31-2006 measles, mumps, rube lla, and varicella virus vaccine Chapis Son DO Work Phone: [facility] [place] 12-31-2006 pneumococcal conjuga te vaccine, 7 valent Chapis Son DO Work Phone: [facility] [place] 12-31-2006 poliovirus vaccine, inactivated Chapis Son DO Work Phone: [facility] [place] 12-31-2006 varicella virus vaccine Esth er Son DO Work Phone: [facility] [place] 11-22-2006 diphtheria, tetanus toxoids and acellular pertussis vaccine Chapis Son DO Work Phone: [facility] [place] 11-22-2006 DTaP-hepatitis B and poliovirus vaccine Chapis Son DO Work Phone: [facility] [place] 11-22-2006 haemophilus influenz ae type b vaccine, HbOC conjugate Krislyn Aberegg PA Work Phone: [facility] 11-22-2006 haemophilus influenz ae type b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 Phone: Evaluation note* Diagnosis Skin infection- Primary Unspecified local infection of skin and subcutaneous tissue [facility] Discharge instructions Additional Instructions Follow-up with your counseling appointment as scheduled.[facility] Work Phone: Hospital Discharge instructions Additional Instructions Follow-up with your psychiatrist as instructed as well as the counseling center. [facility] Work Phone: Hospital Discharge instructionsAdditional Instructions Please return to the ER or see your family doctor in 7 days for suture removal [facility] Work Phone: Reason for referral (narrative)No reason for referral information availableWOhio State Health System Work Phone: Chief Complaint and Reason for Visit Chief Complaint MENTAL HEALTH suicidal SUICIDAL SI MENTAL HEALTH Chief Complaint suicidal SUICIDAL SI MENTAL HEALTH hand injury, mental health Chief Complaint suicidal Chief Complaint suicidal MENTAL HEALTH Chief Complaint MENTAL HEALTH cutting, mental health Chief Complaint Admit Date ANXIETY January 02, 2025 5:28pm lac March 17, 2025 2:12 am Summary Purpose Family History No Family History Records FoundNo Family History Records FoundNo Family History Records FoundNo Family History Records FoundNo Family History Records FoundNo Family History Records Found Advance Directives No Advanced Directives Records Found Advance Directive Response Recorded Date/ Time Do you have a Healthcare Power of Active Directory Systems Administrator? No January 02, 2025 5:46pm Do you have a Healthcare Power of Active Directory Systems Administrator? No March 17, 2025 2:19am Additional Source Comments Goals (unrecognized section and content) Goals may be documented in a n alternate section (unrecognized sect ion and content) No Status Records FoundNo Status Records FoundNo Status Records FoundNo Status Records FoundNo Status Records FoundNo Status Records Found INFORMATION SOURCE (unrecogn ized section and content) DATE CREATED AUTHOR [facility] DATE CREATED AUTHOR AUTHOR'S ORGANIZ ATION 06/28/2022 [facility] DATE CREATED AUTHOR AUTHOR'S ORGANIZ ATION 10/19/2023 [facility] DATE CREATED AUTHOR AUTHOR'S ORGANIZ ATION 04/14/2024 [facility] DATE CREATED AUTHOR AUTHOR'S ORGANIZ ATION 08/23/2024 [facility] DATE CREATED AUTHOR AUTHOR'S ORGANIZ ATION 03/27/2025 [facility] Reason for Visit (unrecogniz ed section and content) Reason Comments PIRC Reason Comments P.I.R.C. Reason Comments Rash Rash on left leg x 5 days Scheduled Active and Recently Administ ered Medications (unrecognized section and content) Medication Order 06/12/2022 06/13/2022 06/14/2022 acetaminophen (TYLENOL) tablet 500 mg (COMPLETED) 500 mg, Oral, ONCE, 1 dose, On Sun06/13/22 at 2130 2131 (Given - Provider: Sonal Rolle RN) escitalopram (LEXAPRO) tablet 5 mg 5 mg, Oral, EVERY EVENING, 90 doses, First dose on Sun06/13/22 at 2130, Last dose on 09/10/22 at 2100 2219 (Given - Provider: Sonal Rolle RN) lamoTRIgine (LaMICtal) tablet 100 mg 100 mg, Oral, 2 TIMES DAILY, 180 doses, First dose on Sun06/13/22 at 2145, Last dose on Sun09/11/22 at 0900, Do not chew due to bitter taste 2218 (Given - Provider: Sonal Rolle RN) Scheduled Medication Order 08/04/2022 08/05/2022 08/06/2022 lamoTRIgine [...] Care Teams (unrecognized sec tion and content) Analytics Intern Relationship Specialty Start Date End Date Sallie Solorzano MD [address] [place] [address] PCP - General Pediatrics 01/24/21 Analytics Intern Relationship Specialty Start Date End Date Sallie Solorzano MD [address] [place] [id number] PCP - General Pediatrics 01/24/21 Team Status: [...] Dr. Whitney Santo MD Emergency Provider Active Analytics Intern Relationship Specialty Start Date End Date RashadSallie bojorquez [address] [place] [address] PCP - General Pediatrics 01/24/23 Analytics Intern Relationship Specialty Start Date End Date Sallie Solorzano Emanuel [address] [place] [address] PCP - General Pediatrics 01/24/23 Team Status: Active Member Role/Relationship Status Dates Dr. Sallie Solorzano MD Primary Care Provider Active Team Status: Inactive Member Role/Relationship Status Dates Dr. Sallie Solorzano MD Primary Care Provider Active Start: January 02, 2025 End: January 02, 2025 Dr. Marek Booker DO Attending Provider Active Start: January 02, 2025 End: January 02, 2025 Dr. Marek Booker DO Emergency Provider Active Start: January 02, 2025 End: January 02, 2025 Team Status: Inactive Member Role/Relationship Status Dates Dr. Sallie Solorzano MD Primary Care Provider Active Start: March 17, 2025 End: March 17, 2025 Dr. Adebayo Tapia DO Emergency Provider Active Start: March 17, 2025 End: March 17, 2025 Source Comments (unrecognize d section and content) In the event this informatio n is protected by the Federal Confidentiality of Alcohol and Drug Abuse Patient Records regulations: The Federal rules restrict any use of the information to criminally investigate or prosecute any alcohol or drug abuse patient.[facility] CenterIn the event this information is protected by the Federal Confidentiality of Alcohol and Drug Abuse Patient Records regulations: The Federal rules restrict any use of the information to criminally investigate or prosecute any alcohol or drug abuse patient.[facility] FOR RECORDS PERTAINING TO PATIENTS WHO ARE [...] BE BASED ON THE PRIMARY CLINICAL RECORDS. [facility] [employer] [facility]. provides no warranty or guarantee of the accuracy or completeness of information in this document.
== END 2025-05-09 14:39 | disposition left against medical advice (07) ==
LOC: ED 14:39
PROVIDERS: PCP Pediatrics
DX: Z53.21 Procedure and treatment not carried out due to patient leaving prior to being seen by health care provider (principal)
CPT/HCPCS: 99281

== ENCOUNTER 2025-05-10 00:54 | Emergency (ER) | payer BC, MEDICAID, SELFPAY ==
[2025-05-10 00:54] VITALS: BP 134/77; PULSE 58; RESP 18; TEMP 36.5; O2SAT 97; BMI 42.0
--- OUTSIDE RECORDS SUMMARY | 2025-05-10 01:09 | XMS RPT_ITS | CCD ---
Author Organization [facility]ini[facility] Care Team Providers Care Customs Compliance Specialist Name Role Phone RASHAD COHEN, DR SALLIE Ayala Primary Care Physician [phone] SALLIE SOLORZANO Primary Care Unavailable DOT [place] Consulting Unavailable DOT [place]S Admitting Unavailable [place] Attending Unavailable Sallie Solorzano MD Primary Care Provider SELF, REFERRED Referring Unavailable RONIT RAYGOZA Attending Unavailable RONIT RAYGOZA Admitting Unavailable MAULIK, FABBY Admitting Unavailable MAULIK, FABBY Consulting Unavailable MAULIK, FABBY Attending Unavailable SALLIE FINN~[phone] [facility] Primary Care Unavailable SALLIE FINN~[phone] RASHAD Consulti ng Unavailable SALLIE SOLORZANO Consulting Unavailable BRITTANY MAR APRN Consulting Unavailab SALLIE Hodges~[phone] [facility] Primary Care Unavailable ISABELAMEDHAT LAM~[phone], ISABELA [place] Admitti ng Unavailable ISABELA LAM~[phone], ISABELA [place] Attendi ng Unavailable BRITTANY MAR APRN Consulting Unavailab SALLIE Hodges~[phone] [facility] Primary Care Unavailable BRITTANY MAR Admitting Unavailable BRITTANY MAR Consulting Unavailable BRITTANY MAR Attending Unavailable BRITTANY MAR APRN Consulting Unavailab Mehnaz COHEN, TREVIN Consulting Unavailable TREVIN JANE MD Consulting Unavailable SALLIE FINN~[phone] RASHAD Consulti ng Unavailable SALLIE SOLORZANO Consulting Unavailable MAULIK, FABBY Consulting Unavailable MAULIK, FABBY Attending Unavailable SALLIE FINN~[phone] [facility] Primary Care Unavailable MAULIK, FABBY Admitting Unavailable RASHAD RIZO SALLIE~[phone] RASHAD Consulti ng Unavailable SALLIE SOLORZANO Consulting Unavailable Sallie Solorzano Primary Care Provider SALLIE SOLORZANO Primary Care Unavailab le MAULIK, FABBY H Attending Unavailable RASHADSALLIE R Primary Care Unavailable REFERRED, SELF Referring Unavailable RASHAD SALLIE R Primary Care Unavailable MAULIK, FABBY H Attending Unavailable REFERRED, SELF Referring Unavailable MAULIK, FABBY H Attending Unavailable REFERRED, SELF Referring Unavailable RASHAD SALLIE R Primary Care Unavailable REFERRED, SELF Referring Unavailable MAULIK, FABBY H Attending Unavailable RASHAD, SALLIE R Primary Care Unavailable SALLIE SOLORZANO R Primary Care Unavailable SALLIE SOLORZANO R Attending Unavailable REFERRED, SELF Referring Unavailable MAULIK, FABBY H Attending Unavailable MAULIK, FABBY H Referring Unavailable RASHADSALLIE R Primary Care Unavailable MAULIK, FABYB H Attending Unavailable SALLIE SOLORZANO R Primary Care Unavailable REFERRED, SELF Referring Unavailable RASHAD, SALLIE R Primary Care Unavailable MAULIK, FABBY H Attending Unavailable REFERRED, SELF Referring Unavailable RASHAD SALLIE R Primary Care Unavailable MAULIK, FABBY H Attending Unavailable REFERRED, SELF Referring Unavailable MAULIK, FABBY H Attending Unavailable REFERRED, SELF Referring Unavailable SALLIE SOLORZANO R Primary Care Unavailable Dr. Sallie Solorzano MD Primary Care Provider Dr. Marek Booker DO Attending Provider Dr. Marek Booker DO Emergency Provider Dr. Adebayo Tapia DO Emergency Provider Sallie Solorzano Primary Care Unavailable Marek Booker Attending Unavailable Adebayo Tapia Attending Unavailable Sallie Solorzano Primary Care Unavailable Dr. Sallie Solorzano MD Primary Care Provider Dr. Adebayo Tapia DO Attending Provider Provider, Ed Physician Emergency Provider Unavai lable Medications Current Medications Medication Drug Class(es) Dates [...] 01/10/2023 Active lamoTRIgine 100 mg oral tablet (15 sources) Mood Stabilizer, Anti-epileptic Agent Start: 02-12-2024 [...] Start: 12-03-2021 take 3 tablets by mo [facility] once daily Lamotrigine (Lamictal) 25 mg Tablet Active 75 MG PO DAILY December 03, 2021 10:07pm Start: 12-03-2021 take 3 tablets by [facility] twice daily Lamotrigine (Lamictal) 25 mg Tablet [...] Active lurasidone hydrochloride 40 mg oral tablet (12 sources) Atypical Antipsychotic Start: 01-04-2023 lurasid one [...] hydrochloride 40 mg extended release oral capsule (5 sources) Central Nervous System Stimulant Start: 12-26-2022 [...] 05/12/2024 Active sertraline 50 mg oral tablet (9 sources) Serotonin Reuptake Inhibitor Start: 01-04-2023 sertraline [...] 12:00am traZODone hydrochloride 50 mg oral tablet (4 sources) Serotonin Reuptake Inhibitor Start: 03-17-2025 take [...] Problem Date Documented Date Episodic/Chronic Anxiety disorders (18 sources) Self inflicted injury; Translations: [Self-inflicted injury] Onset: 06-23-2022 Chronic Attention-deficit, conduct, and disruptive behavior disorders (9 sources) Oppositional defiant disorder; Translations: [Oppositional defiant disorder] Onset: 09-14-2021 Resolved: 01-10-2022 01-10-2022 Chronic Attention-deficit, conduct, and disruptive behavior disorders (2 sources) Attention deficit hyperactivity disorder, combined type; Translations: [Attention-deficit hyperactivity disorder, combined type] Onset: 08-11-2019 04-22-2021 Chronic Attention-deficit, conduct, and disruptive behavior disorders (1 source) Attention deficit hyperactivity disorder; Translations: [Attention-deficit hyperactivity disorder, unspecified type] 03-25-2025 Chronic Disorders usually diagnosed in infancy, childhood, or adolescence (2 sources) Autism spectrum disorder; Translations: [Autistic disorder] Onset: 09-05-2021 09-05-2021 Chronic Impulse control disorders, NEC (2 sources) Homicidal thoughts; Translations: [Homicidal ideations] 01-10-2025 Episodic Miscellaneous mental health disorders (2 sources) Mental disorder; Translations: [Mental disorder, not otherwise specified] Onset: 06-13-2022 06-13-2022 Chronic Mood disorders (20 sources) Depressive disorder; Translations: [Depression with suicidal ideation] Onset: 03-21-2021 Resolved: 01-10-2022 06-14-2022 Chronic Open wounds of extremities (8 sources) Superficial laceration of forearm; Translations: [Laceration without foreign body of unspecified forearm, initial encounter] Onset: 03-23-2025 07-01-2022 Episodic Open wounds of head; neck; and trunk (5 sources) Laceration of neck; Translations: [Laceration without foreign body of unspecified part of neck, initial encounter] 07-01-2022 Episodic Other aftercare (3 sources) Other shelter (current) drug therapy; Translations: [OTH SNF CURRENT DRUG THERAPY] Onset: 03-22-2023 Episodic Other injuries and conditions due to external causes (7 sources) Abrasion and/or friction burn of multiple sites; Translations: [Unspecified multiple injuries, initial encounter] 12-12-2021 Episodic Other nutritional; endocrine; and metabolic disorders (2 sources) Obesity; Translations: [Obesity, unspecified] Onset: 05-15-2012 10-13-2021 Chronic Other upper respiratory disease (2 sources) Allergic rhinitis; Translations: [Allergic rhinitis, unspecified] Onset: 01-16-2011 10-13-2021 Chronic Residual codes; unclassified (7 sources) Restlessness and agitation; Translations: [Restlessness and agitation] 12-12-2021 Chronic Residual codes; unclassified (5 sources) Deliberate self-cutting; Translations: [Other problems related to lifestyle] 12-26-2022 Episodic Screening and history of mental health and substance abuse codes (7 sources) Antisocial behavior; Translations: [Antisocial behavior] 10-23-2021 Episodic Skin and subcutaneous tissue infections (1 source) Infection of skin; Translations: [Local infection of the skin and subcutaneous tissue, unspecified] 04-13-2024 Episodic Suicide and intentional self-inflicted injury (14 sources) Suicidal thoughts; Translations: [Suicidal ideations] Onset: 09-12-2021 Resolved: 01-10-2022 01-10-2022 Episodic Superficial injury; contusion (7 sources) Contusion of hand; Translations: [Contusion of [...] Department Summary on 03-17-2025 Emergency Department Summary [facility] Medical Records Department [address] [place] [address] Emergency Department Summary 03/17/25 MR#: [id number] Acct: [id number] Name: MANNY MCNALLY Rep #: [id number] : 2005 19 From: Adebayo Tapia DO [...] of bleeding disorder or blood thinner use [facility] Medical History Oppositional defiant disorder High-functioning [...] tissue infectio (more content not included)... Normal [facility] Absolute lymphocyte countOrd ered By: Marek Booker on 01-02-2025 Lymphocytes Auto (Unsp spec) [#/Vol] 1.21 10*3/uL 0.83-4.51 [facility] Absolute neutrophil countOrd ered By: Marek Booker on 01-02-2025 Neutrophils (Bld) [#/Vol] 5.3 10*3/uL 2.0-7.7 [facility] Alcohol, Blood (Medical)-Ser umon 01-02-2025 SERUM ETOH < 10.1 Normal <=10.0 [facility] Comment on above: Result Comment: This test is for medical purposes only. The legal definition of intoxication varies according to local law. Performed By: #### L 100.0100, L505.5000, L501.9100, L500.2500 #### [facility] [address] [place], [place], [id number] Amphetamine detection with 1 000 ng/mL as cutoffOrdered By: Marek Booker on 01-02-2025 Amphetamines Screen method >1000 ng/mL Ql (U) Negative < 200 ng/mL [facility] Anion gap in Serum or Plasma Ordered By: Marek Booker on 01-02-2025 Anion gap [Moles/Vol] 16 mmol/L High 5-15 [facility] Automated lymphocyte count a s percentage of total leukocytesOrdered By: Marek Booker on 01-02-2025 Lymphocytes/100 WBC Auto (Unsp spec) 16.1 % Low 19-41 [facility] BUN/creatinine ratioOrdered By: Marek Booker on 01-02-2025 Urea nitrogen/Creatinine [Mass ratio] 11.6 mg/mg 10-20 [facility] Basic Metabolic Profile (BMP )on 01-02-2025 BUN/CRE 11.6 RATIO Normal - [facility] Comment on above: Performed By: #### L 100.0100, L505.5000, L501.9100, L500.2500 #### [facility] [address] [place], [place], [id number] GFR/1.73 sq M.predicted among non-blacks MDRD (S/P/Bld) [Vol rate/Area] 135 mL/min/{1.73_m2} Normal >60 [facility] Comment on above: Result Comment: mL/m in/1.73m2 CKD-EPI Creatinine Equation (2020) Performed By: #### L 100.0100, L505.5000, L501.9100, L500.2500 #### [facility] [address] [place], [address] Urea nitrogen [Mass/Vol] 8 mg/dL Normal 4-19 [facility] Comment on above: Performed By: #### L 100.0100, L505.5000, L501.9100, L500.2500 #### [facility] [address] [place], [address] Basophil percentageOrdered B y: Marek Booker on 01-02-2025 Basophils/100 WBC (Bld) 0.4 % 0-1 [facility] CBC W/Diff, Automatedon -2024 Absolute Lymph 1.21 X10 3/uL Normal 0.83-4.51 [facility] Comment on above: Performed By: #### L 100.0100, L505.5000, L501.9100, L500.2500 #### [facility] [address] [place], [address] Absolute Neut 5.3 X10 3/uL Normal 2.0-7.7 [facility] Comment on above: Performed By: #### L 100.0100, L505.5000, L501.9100, L500.2500 #### [facility] [address] [place], [address] Basophils/100 WBC (Bld) 0.4 % Normal 0-1 [facility] Comment on above: Performed By: #### L 100.0100, L505.5000, L501.9100, L500.2500 #### [facility] [address] [place], [address] Eosinophils/100 WBC (Bld) 0.3 % Normal 0-5 [facility] Comment on above: Performed By: #### L 100.0100, L505.5000, L501.9100, L500.2500 #### [facility] [address] [place], [address] Erythrocyte distribution width (RBC) [Ratio] 12.5 % Normal 11.6-14.6 [facility] Comment on above: Performed By: #### L 100.0100, L505.5000, L501.9100, L500.2500 #### [facility] [address] [place], [address] Hematocrit (Bld) [Volume fraction] 45.7 % Normal 40-54 [facility] Comment on above: Performed By: #### L 100.0100, L505.5000, L501.9100, L500.2500 #### [facility] [address] [place], [address] Hemoglobin (Bld) [Mass/Vol] 16.2 g/dL Normal 13.0-16.5 [facility] Comment on above: Performed By: #### L 100.0100, L505.5000, L501.9100, L500.2500 #### [facility] [address] [place], [address] IG% 0.400 Normal 0.0-0.9 [facility] Comment on above: Result Comment: IG% - Immature Granulocytes (promyelocytes, myelocytes and metamyelocytes) > 1% indicates that a LEFT SHIFT is Present. Performed By: #### L 100.0100, L505.5000, L501.9100, L500.2500 #### [facility] [address] [place], [address] Lymphocytes/100 WBC (Bld) 16.1 % Low 19-41 [facility] Comment on above: Performed By: #### L 100.0100, L505.5000, L501.9100, L500.2500 #### [facility] [address] [place], [address] MCH (RBC) [Entitic mass] 29.1 pg Normal 27.0-32.0 [facility] Comment on above: Performed By: #### L 100.0100, L505.5000, L501.9100, L500.2500 #### [facility] [address] [place], [address] MCHC (RBC) [Mass/Vol] 35.4 g/dL Normal 32-36 [facility] Comment on above: Performed By: #### L 100.0100, L505.5000, L501.9100, L500.2500 #### [facility] [address] [place], [address] MCV (RBC) [Entitic vol] 82.2 fL Normal 80-94 [facility] Comment on above: Performed By: #### L 100.0100, L505.5000, L501.9100, L500.2500 #### [facility] [address] [place], [address] Monocytes/100 WBC (Bld) 11.7 % High 0-10 [facility] Comment on above: Performed By: #### L 100.0100, L505.5000, L501.9100, L500.2500 #### [facility] [address] [place], [address] Neutrophils/100 WBC (Bld) 71.1 % High 47-70 [facility] Comment on above: Performed By: #### L 100.0100, L505.5000, L501.9100, L500.2500 #### [facility] [address] [place], [address] Nucleated RBC (Bld) [#/Vol] 0 10*3/uL Normal 0-5 [facility] Comment on above: Performed By: #### L 100.0100, L505.5000, L501.9100, L500.2500 #### [facility] [address] [place], [address] Platelet mean volume (Bld) [Entitic vol] 10.2 fL Normal 6.2-12.0 [facility] Comment on above: Performed By: #### L 100.0100, L505.5000, L501.9100, L500.2500 #### [facility] [address] [place], [address] Platelets (Bld) [#/Vol] 249 10*3/uL Normal 150-450 [facility] Comment on above: Performed By: #### L 100.0100, L505.5000, L501.9100, L500.2500 #### [facility] [address] [place], [address] RBC (Bld) [#/Vol] 5.56 10*6/uL Normal 4.6-6.2 [facility] Comment on above: Performed By: #### L 100.0100, L505.5000, L501.9100, L500.2500 #### [facility] [address] [place], [address] RDW SD 37.6 fl Normal 35.1-43.9 [facility] Comment on above: Performed By: #### L 100.0100, L505.5000, L501.9100, L500.2500 #### [facility] [address] [place], [address] WBC (Bld) [#/Vol] 7.5 10*3/uL Normal 4.4-11.0 [facility] Comment on above: Performed By: #### L 100.0100, L505.5000, L501.9100, L500.2500 #### [facility] [address] [place], [address] Carbon dioxide, total [Moles /volume] in Central venous bloodOrdered By: Marek Booker on 01-02-2025 CO2 [Moles/Vol] 20.0 mmol/L Low 21.0-32.0 [facility] Chloride assayOrdered By: Pop Booker on 01-02-2025 Chloride [Moles/Vol] 104 mmol/L 98-108 [facility] Emergency Department Summary on 01-02-2025 Emergency Department Summary [facility] Medical Records Department [address] [place] [address] Emergency Department Summary 01/02/25 MR#: [id number] Acct: [id number] Name: MANNY MCNALLY Rep #: [id number] : 2005 19 From: Marek Booker DO [...] that he is just angry and frustrated. [facility] Medical History Oppositional defiant disorder High-functioning [...] follow commands knew that he was at [facility] year is 2024 Skin: Warm, dry, [...] working on placement. Patient was accepted to [facility] by Dr. Magallanes. Lab Data Labs: Laboratory Results - last 24 hr 01/02/25 01/02/25 17:42 17:50 WBC 7.5 RBC 5.56 Hgb 16.2 Hct 45.7 MCV 82.2 MCH 29.1 MCHC 35.4 RDW Std Deviation 37.6 RDW Coeff of Autumn 12.5 Plt Count 249 MPV 10.2 Immature Gran % (Auto) 0.400 Neut % (Auto) 71.1 H Lymph % (Auto) 16.1 L [place] % (Auto) 11.7 H Eos % (Auto) [...] Ur Oxycodon (more content not included)... Normal [facility] Eosinophil percentageOrdered By: Marek Booker on 01-02-2025 Eosinophils/100 WBC (Bld) 0.3 % 0-5 [facility] Erythrocyte distribution wid th ratioOrdered By: Marek Booker on 01-02-2025 Erythrocyte distribution width (RBC) [Ratio] 12.5 % 11.6-14.6 [facility] Erythrocyte distribution wid th standard deviationOrdered By: Marek Booker on 01-02-2025 Erythrocyte distribution width (RBC) [Ratio] 37.6 fl 35.1-43.9 [facility] Glomerular filtration rate ( GFR) estimation/1.73 sq m using serum, plasma, or whole bOrdered By: Marek Booker on 01-02-2025 GFR/1.73 sq M.predicted among non-blacks MDRD (S/P/Bld) [Vol rate/Area] 135 mL/min/{1.73_m2} >60 [facility] Comment on above: mL/min/1.73m2 CKD-EP I Creatinine Equation (2020) Hematocrit Auto (Bld) [Volum e fraction]Ordered By: Marek Booker on 01-02-2025 Hematocrit (Bld) [Volume fraction] 45.7 % 40-54 [facility] Hemoglobin measurementOrdere d By: Marek Booker on 01-02-2025 Hemoglobin (Bld) [Mass/Vol] 16.2 g/dL 13.0-16.5 [facility] Immature granulocytes/100 WB C Auto (Bld)Ordered By: Marek Booker on 01-02-2025 Immature granulocytes/100 WBC (Bld) 0.400 % 0.0-0.9 [facility] Comment on above: IG% - Immature Granu locytes (promyelocytes, myelocytes and metamyelocytes) > 1% indicates that a LEFT SHIFT is Present. MCV (mean corpuscular volume ) determinationOrdered By: Marek Booker on 01-02-2025 MCV (RBC) [Entitic vol] 82.2 fL 80-94 [facility] Mean corpuscular hemoglobin (MCH) determinationOrdered By: Marek Booker on 01-02-2025 MCH (RBC) [Entitic mass] 29.1 pg 27.0-32.0 [facility] Mean corpuscular hemoglobin concentration (MCHC) determinationOrdered By: Marek Booker on 01-02-2025 MCHC (RBC) [Mass/Vol] 35.4 g/dL 32-36 [facility] Mean platelet volume determi nationOrdered By: Marek Booker on 01-02-2025 Platelet mean volume (Bld) [Entitic vol] 10.2 fL 6.2-12.0 [facility] Monocyte percentageOrdered B y: Marek Booker on 01-02-2025 Monocytes/100 WBC (Bld) 11.7 % High 0-10 [facility] Neutrophil percentageOrdered By: Marek Booker on 01-02-2025 Neutrophils/100 WBC (Bld) 71.1 % High 47-70 [facility] No Panel InformationOrdered By: Marek Booker on 01-02-2025 Urine Buprenorphine Qualitative Negative < 200 ng/mL [facility] Urine Oxycodone Screen Negative < 100 ng/mL [facility] Nucleated red blood cell per centageOrdered By: Marek Booker on 01-02-2025 Nucleated RBC/100 WBC (Bld) [Ratio] 0 % 0-5 [facility] Platelet countOrdered By: Pop Booker on 01-02-2025 Platelets (Bld) [#/Vol] 249 10*3/uL 150-450 [facility] Potassium measurement (mass/ volume)Ordered By: Marek Booker on 01-02-2025 Potassium (Unsp spec) [Mass/Vol] 3.7 mmol/L 3.3-5.1 [facility] Quantitative urine opiates m easurementOrdered By: Marek Booker on 01-02-2025 Opiates Ql (U) Negative < 300 ng/mL [facility] RBC Auto (Bld) [#/Vol]Ordere d By: Marek Booker on 01-02-2025 RBC (Bld) [#/Vol] 5.56 10*6/uL 4.6-6.2 [facility] Screening urine fentanyl jose surementOrdered By: Marek Booker on 01-02-2025 fentaNYL Screen Ql (U) Negative [facility] Serum creatinine measurement (mass/volume)Ordered By: Marek Booker on 01-02-2025 Creatinine [Mass/Vol] 0.72 mg/dL 0.70-1.20 [facility] Serum glucose measurement (m ass/volume)Ordered By: Marek Booker on 01-02-2025 Glucose [Mass/Vol] 103 mg/dL High 70-99 [facility] Serum or plasma calcium rhona urement (mass/volume)Ordered By: Marek Booker on 01-02-2025 Calcium [Mass/Vol] 9.5 mg/dL 7.6-11.0 [facility] Serum or plasma ethanol rhona urement (mass/volume)Ordered By: Marek Booker on 01-02-2025 Ethanol [Mass/Vol] mg/dL <10.1 [facility] Comment on above: This test is for med ical purposes only. The legal definition of intoxication varies according to local law. Serum or plasma urea nitroge n measurement (mass/volume)Ordered By: Marek Booker on 01-02-2025 Urea nitrogen [Mass/Vol] 8 mg/dL 4-19 [facility] Sodium levelOrdered By: Tiarra Booker on 01-02-2025 Sodium [Moles/Vol] 140 mmol/L 133-145 [facility] Urine Drug Screen (VISTA)on 01-02-2025 AMPHETAMINES Negative Normal <1000 ng/mL [facility] Comment on above: Performed By: #### L 100.0100, L505.5000, L501.9100, L500.2500 #### [facility] [place], [address] BARBITIURATES Negative Normal < 200 ng/mL [facility] Comment on above: Performed By: #### L 100.0100, L505.5000, L501.9100, L500.2500 #### [facility] [address] [place], [address] BENZODIAZIPINE Negative Normal < 200 ng/mL [facility] Comment on above: Performed By: #### L 100.0100, L505.5000, L501.9100, L500.2500 #### [facility] [address] [place], [address] BUP Ur Drug Scr Negative Normal < 200 ng/mL [facility] Comment on above: Performed By: #### L 100.0100, L505.5000, L501.9100, L500.2500 #### [facility] [place], [place], [facility] COCAINE Negative Normal < 300 ng/mL [facility] Comment on above: Performed By: #### L 100.0100, L505.5000, L501.9100, L500.2500 #### [facility] [address] [place], [facility] Fentanyl Negative Normal [facility] Comment on above: Performed By: #### L 100.0100, L505.5000, L501.9100, L500.2500 #### [facility] [address] [place], [place], [facility] METHADONE Negative Normal < 300 ng/mL [facility] Comment on above: Performed By: #### L 100.0100, L505.5000, L501.9100, L500.2500 #### [facility] [address] [place], [address] OPIATES Negative Normal < 300 ng/mL [facility] Comment on above: Performed By: #### L 100.0100, L505.5000, L501.9100, L500.2500 #### [facility] [address] [place], [address] OXYCODONE Negative Normal < 100 ng/mL [facility] Comment on above: Performed By: #### L 100.0100, L505.5000, L501.9100, L500.2500 #### [facility] [address] [place], [address] PCP Negative Normal < 25 ng/mL [facility] Comment on above: Performed By: #### L 100.0100, L505.5000, L501.9100, L500.2500 #### [facility] [address] [place], [address] THC Positive Normal < 50 ng/mL [facility] Comment on above: Result Comment: If c onfirmation testing is needed, a separate order will be required to send out testing to the reference laboratory. Performed By: #### L 100.0100, L505.5000, L501.9100, L500.2500 #### [facility] [address] [place], [address] Urine benzodiazepine levelOr dered By: Marek Booker on 01-02-2025 Benzodiazepines Ql (U) Negative < 200 ng/mL [facility] Urine cocaine levelOrdered B y: Marek Booker on 01-02-2025 Cocaine Ql (U) Negative < 300 ng/mL [facility] Urine [id number]-1-[id number] abinol (THC) measurementOrdered By: Marek Booker on 01-02-2025 Cannabinoids Screen Ql (U) Positive < 50 ng/mL [facility] Comment on above: If confirmation test ing is needed, a separate order will be required to send out testing to the reference laboratory. 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 History of SI's- friends and family are close if problems. No SI's today Stomach issues persistent- random vomiting diarrhea all the time stomach upset when eats Gets a lot of mucous drainage He is unaccompanied. 18 YEAR WELL CHILD Education: Manny (more content not included)... Intermediate [facility] Progress Noteon 08-14-2024 Lines Tender Authentication Interface Message Text This is a [...] Level Low Acute Risk: History of past qpobwy-bu-zd- or suicidal thoughts;Protective factors outweigh risk factors [...] Actual Lethality/Medical Damage: Potential Lethality: [email or web address] VITAL SIGNS & MENTAL STATUS EXAM Wt Readings from Last 3 Encounters: 10/08/23 (!) 120.7 kg (>99%, Z= 2.71)* 01/22/23 (!) 136.2 kg (>99%, Z= 3.19)* 12/25/22 (!) 137 kg (>99%, Z= 3.22)* * Growth percentiles are based on [facility] (Boys, 2-20 Years) data. Temp Readings from [...] of Knowle (more content not included)... Normal [facility] Progress Noteon 04-25-2024 Lines Tender Authentication Interface Message Text This is a [...] Level Low Acute Risk: History of past xasmvc-sx-dp- or suicidal thoughts;Protective factors outweigh risk factors [...] Actual Lethality/Medical Damage: Potential Lethality: [email or web address] VITAL SIGNS & MENTAL STATUS EXAM Wt Readings from Last 3 Encounters: 10/08/23 (!) 120.7 kg (>99%, Z= 2.71)* 01/22/23 (!) 136.2 kg (>99%, Z= 3.19)* 12/25/22 (!) 137 kg (>99%, Z= 3.22)* * Growth percentiles are based on [facility] (Boys, 2-20 Years) data. Temp Readings from [...] included)... [facility] ([facility] ) -------- DALIMANNY BEYER ([id number]) 5 M Date Time Provider Department 04/13/24 2:00 PM CHRISTOS OROZCO [facility] During your visit today, we recorded the following information about you: Temperature Pulse Respiration Blood pressure 98.1 degrees 65/minute 16/minute 132/84 Weight 124.6 kg Christos Orozco PA 04/13/2024 2:11 PM Signed This note was created using [employer]ov[employer]. Subjective Manny Mcnally is a 18 year [...] for 7 (more content not included)... Normal [facility] Progress Noteon 02-12-2024 Lines Tender Authentication Interface Message Text This is a [...] Level Low Acute Risk: History of past yjllvs-xs-tu- or suicidal thoughts;Protective factors outweigh risk factors [...] Actual Lethality/Medical Damage: Potential Lethality: [email or web address] VITAL SIGNS & MENTAL STATUS EXAM Wt Readings from Last 3 Encounters: 10/08/23 (!) 120.7 kg (>99%, Z= 2.71)* 01/22/23 (!) 136.2 kg (>99%, Z= 3.19)* 12/25/22 (!) 137 kg (>99%, Z= 3.22)* * Growth percentiles are based on [facility] (Boys, 2-20 Years) data. Temp Readings from [...] appears av (more content not included)... Normal [facility] Progress Noteon 12-27-2023 Lines Tender Authentication Interface Message Text This is a telemedicine video visit requested by the patient that was performed with the patient's location at [facility] and the provider's location at home/office. [...] Level Low Acute Risk: History of past pivjvx-rb-kk- or suicidal thoughts;Protective factors outweigh risk factors [...] Actual Lethality/Medical Damage: Potential Lethality: [email or web address] VITAL SIGNS & MENTAL STATUS EXAM Wt Readings from Last 3 Encounters: 10/08/23 (!) 120.7 kg (>99%, Z= 2.71)* 01/22/23 (!) 136.2 kg (>99%, Z= 3.19)* 12/25/22 (!) 137 kg (>99%, Z= 3.22)* * Growth percentiles are based on [facility] (Boys, 2-20 Years) data. Temp Readings from [...] therapy: Yes (more content not included)... Normal [facility] Progress Noteon 11-29-2023 Lines Tender Authentication Interface Message Text This is a [...] Level Low Acute Risk: History of past igltzz-ob-rx- or suicidal thoughts;Protective factors outweigh risk factors [...] Actual Lethality/Medical Damage: Potential Lethality: [email or web address] VITAL SIGNS & MENTAL STATUS [...] Patient denie (more content not included)... Normal [facility] Progress Noteon 09-20-2023 Lines Tender Authentication Interface Message Text This is a telemedicine video visit requested by the patient/guardian that was performed with the patient's location at home and the provider's location at home or hospital office. 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 Patient can have headaches. Patient can have headaches throughout the day. No safety, appetite or sleep concerns. RISK ASSESSMENT Current Risk Level Low Acute Risk: History of past xtgsje-um-tn- or suicidal thoughts;Protective factors outweigh risk factors [...] Attempt Date: Actual Lethality/Medical Damage: Potential Lethality: [email or web address] VITAL SIGNS & MENTAL STATUS EXAM Wt Readings from Last 3 Encounters: 01/22/23 (!) 136.2 kg (>99 %, Z= 3.19)* 12/25/22 (!) 137 kg (>99 %, Z= 3.22)* 09/14/22 (!) 135.6 kg (>99 %, Z= 3.25)* * Growth percentiles are based on [facility] (Boys, 2-20 Years) data. Temp Readings from [...] denied ref (more content not included)... Normal [facility] CBC W Auto Differential pane l (Bld)on 08-15-2023 Basophils (Bld) [#/Vol] 0.04 10*3/uL Normal <=0.70 [facility] Comment on above: Performed By: #### 5 7021-8 #### [place] [address] [place] [address] Senior Lead Java Developer - Demetra LYLESIA [id number] Basophils/100 WBC (Bld) 0.5 % Normal <=2.0 [facility] Comment on above: Performed By: #### 5 7021-8 #### [place] [address] [place] [address] Senior Lead Java Developer - Demetra LYLESIA [id number] Eosinophils (Bld) [#/Vol] 0.08 10*3/uL Normal <=0.70 [facility] Comment on above: Performed By: #### 5 7021-8 #### [address] [place] [address] Senior Lead Java Developer - Demetra LYLESIA [id number] Eosinophils/100 WBC (Bld) 1.0 % Normal <=10.0 [facility] Comment on above: Performed By: #### 5 7021-8 #### [address] [place] [address] Senior Lead Java Developer - Demetra LYLESIA [id number] Erythrocyte distribution width (RBC) [Entitic vol] 40.0 fL Normal 35.1-43.9 [facility] Comment on above: Performed By: #### 5 7021-8 #### [address] [place] [address] Senior Lead Java Developer - Demetra LYLESIA [id number] Hematocrit (Bld) [Volume fraction] 46.2 % Normal 40.0-54.0 [facility] Comment on above: Performed By: #### 5 7021-8 #### [address] [place] [address] Senior Lead Java Developer - Demetra LYLESIA [id number] Hemoglobin (Bld) [Mass/Vol] 16.0 g/dL Normal 14.0-18.0 [facility] Comment on above: Performed By: #### 5 7021-8 #### [place] [address] [place] [address] Senior Lead Java Developer - Demetra Daniel CLIA [id number] Immature granulocytes (Bld) [#/Vol] 0.03 10*3/uL Normal <=0.10 [facility] Comment on above: Performed By: #### 5 7021-8 #### [address] [place] [address] Senior Lead Java Developer - Demetra Daniel CLIA [id number] Immature granulocytes/100 WBC (Bld) 0.40 % Normal <=1.50 [facility] Comment on above: Performed By: #### 5 7021-8 #### [address] [place] [address] Senior Lead Java Developer - Demetra Daniel CLIA [id number] Lymphocytes (Bld) [#/Vol] 2.14 10*3/uL Normal 1.20-3.40 [facility] Comment on above: Performed By: #### 5 7021-8 #### [address] [place] [address] Senior Lead Java Developer - Demetra Daniel CLIA [id number] Lymphocytes/100 WBC (Bld) 26.7 % Normal 20.0-40.0 [facility] Comment on above: Performed By: #### 5 7021-8 #### [address] [place] [address] Senior Lead Java Developer - Demetra LYLESIA [id number] MCH (RBC) [Entitic mass] 28.4 pg Normal 27.0-31.0 [facility] Comment on above: Performed By: #### 5 7021-8 #### [address] [place] [address] Senior Lead Java Developer - Demetra LYLESIA [id number] MCHC (RBC) [Mass/Vol] 34.6 g/dL Normal 32.0-36.0 [facility] Comment on above: Performed By: #### 5 7021-8 #### [address] [place] [address] Senior Lead Java Developer - Demetra Daniel CLIA [id number] MCV (RBC) [Entitic vol] 81.9 fL Normal 80.0-100.0 [facility] Comment on above: Performed By: #### 5 7021-8 #### [facility] [address] [place] [address] Senior Lead Java Developer - Demetra Daniel CLIA [id number] Monocytes (Bld) [#/Vol] 0.58 10*3/uL Normal 0.10-0.60 [facility] Comment on above: Performed By: #### 5 7021-8 #### [place] [address] [place] [address] Senior Lead Java Developer - Demetra Daniel CLIA [id number] Monocytes/100 WBC (Bld) 7.2 % Normal <=8.0 [facility] Comment on above: Performed By: #### 5 7021-8 #### [place] [address] [place] [address] Senior Lead Java Developer - Demetra Daniel CLIA [id number] Neutrophils (Bld) [#/Vol] 5.14 10*3/uL Normal 1.40-6.50 [facility] Comment on above: Performed By: #### 5 7021-8 #### [place] [address] [place] [address] Senior Lead Java Developer - Demetra Daniel CLIA [id number] Neutrophils/100 WBC (Bld) 64.2 % Normal 50.0-70.0 [facility] Comment on above: Performed By: #### 5 7021-8 #### [address] [place] [address] Senior Lead Java Developer - Demetra LYLESIA [id number] Nucleated RBC (Bld) [#/Vol] 0.00 10*3/uL Normal <=0.10 [facility] Comment on above: Performed By: #### 5 7021-8 #### [address] [place] [address] Senior Lead Java Developer - Demetra Daniel CLIA [id number] Platelet mean volume (Bld) [Entitic vol] 9.9 fL Normal 9.0-13.0 [facility] Comment on above: Performed By: #### 5 7021-8 #### [facility] [address] [place] [address] Senior Lead Java Developer - Demetra CORTEZ [id number] Platelets (Bld) [#/Vol] 304 10*3/uL Normal 130-400 [facility] Comment on above: Performed By: #### 5 7021-8 #### [facility] [address] [place] [address] Senior Lead Java Developer - Demetra CORTEZ [id number] RBC (Bld) [#/Vol] 5.64 10*6/uL Normal 4.00-6.30 [facility] Comment on above: Performed By: #### 5 7021-8 #### [facility] [address] [place] [address] Senior Lead Java Developer - Demetra CORTEZ [id number] WBC (Bld) [#/Vol] 8.01 10*3/uL Normal 4.80-10.80 [facility] Comment on above: Performed By: #### 5 7021-8 #### [facility] [address] [place] [address] Senior Lead Java Developer - Demetra CORTEZ [id number] Comprehensive metabolic 2000 panelon 08-15-2023 Albumin [Mass/Vol] 4.6 g/dL Normal 3.4-5.0 [facility] Comment on above: Performed By: #### 1 1579-0 #### [facility] [address] [place] [address] Senior Lead Java Developer - Demetra CORTEZ [id number] #### 48928-5 #### [facility] [address] [place] [address] Senior Lead Java Developer - Demetra CORTEZ [id number] Performed for [facility] [address] [place] [address] ALP [Catalytic activity/Vol] 144 U/L High 50-136 [facility] Comment on above: Performed By: #### 1 1579-0 #### [facility] [address] [place] [address] Senior Lead Java Developer - Demetra CORTEZ [id number] #### 51596-8 #### [facility] [address] [place], [place] [address] Senior Lead Java Developer - Demetra LYLESIA [id number] Performed for [facility] [address] [place], [place] [address] ALT [Catalytic activity/Vol] 48 U/L Normal 16-63 [facility] Comment on above: Performed By: #### 1 1579-0 #### [facility] [address] [place] [address] Senior Lead Java Developer - Demetra LYLESIA [id number] #### 04727-6 #### [facility] [address] [place] [address] Senior Lead Java Developer - Demetra LYLESIA [id number] Performed for [facility] [address] [place], [place] [address] Anion gap [Moles/Vol] 8.0 mmol/L Normal <=15.0 [facility] Comment on above: Performed By: #### 1 1579-0 #### [facility] [address] [place] [address] Senior Lead Java Developer - Demetra LYLESIA [id number] #### 37141-2 #### [facility] [address] [place] [address] Senior Lead Java Developer - Demetra LYLESIA [id number] Performed for [facility] [address] [place], [place] [address] AST [Catalytic activity/Vol] 25 U/L Normal 15-37 [facility] Comment on above: Performed By: #### 1 1579-0 #### [facility] [address] [place], [place] [address] Senior Lead Java Developer - Demetra LYLESIA [id number] #### 43554-4 #### [facility] [address] [place] [address] Senior Lead Java Developer - Demetra LYLESIA [id number] Performed for [facility] [address] [place], [place] [address] Bilirubin [Mass/Vol] 0.7 mg/dL Normal 0.2-1.0 [facility] Comment on above: Performed By: #### 1 1579-0 #### [facility] [address] [place] [address] Senior Lead Java Developer - Demetra CORTEZ [id number] #### 91232-1 #### [facility] [address] [place] [address] Senior Lead Java Developer - Demetra CORTEZ [id number] Performed for [facility] [address] [place] [address] Calcium [Mass/Vol] 9.7 mg/dL Normal 8.5-10.1 [facility] Comment on above: Performed By: #### 1 1579-0 #### [facility] [address] [place] [address] Senior Lead Java Developer - Demetra CORTEZ [id number] #### 77117-5 #### [facility] [address] [place] [address] Senior Lead Java Developer - Demetra CORTEZ [id number] Performed for [facility] [address] [place] [address] Chloride [Moles/Vol] 104 mmol/L Normal 98-107 [facility] Comment on above: Performed By: #### 1 1579-0 #### [facility] [address] [place] [address] Senior Lead Java Developer - Demetra CORTEZ [id number] #### 79976-5 #### [facility] [address] [place] [address] Senior Lead Java Developer - Demetra CORTEZ [id number] Performed for [facility] [address] [place] [address] CO2 [Moles/Vol] 28 mmol/L Normal 21-32 [facility] Comment on above: Performed By: #### 1 1579-0 #### [facility] [address] [place] [address] Senior Lead Java Developer - Demetra CORTEZ [id number] #### 22343-8 #### [facility] [address] [place], [place] [address] Senior Lead Java Developer - Demetra CORTEZ [id number] Performed for [facility] [address] [place], [place] [address] Creatinine [Mass/Vol] 0.79 mg/dL Normal 0.67-1.17 [facility] Comment on above: Performed By: #### 1 1579-0 #### [facility] [address] [place] [address] Senior Lead Java Developer - Demetra CORTEZ [id number] #### 63232-3 #### [facility] [address] [place] [address] Senior Lead Java Developer - Demetra CORTEZ [id number] Performed for [facility] [address] [place], [place] [address] GFR/1.73 sq M.predicted MDRD (S/P/Bld) [Vol rate/Area] Normal 59-N/A [facility] Comment on above: Performed By: #### 1 1579-0 #### [facility] [address] [place] [address] Senior Lead Java Developer - Demetra CORTEZ [id number] #### 55568-1 #### [facility] [address] [place] [address] Senior Lead Java Developer - Demetra CORTEZ [id number] Performed for [facility] [address] [place], [place] [address] Glucose [Mass/Vol] 104 mg/dL Normal 74-106 [facility] Comment on above: Performed By: #### 1 1579-0 #### [facility] [address] [place], [place] [address] Senior Lead Java Developer - Demetra CORTEZ [id number] #### 81540-9 #### [facility] [address] [place] [address] Senior Lead Java Developer - Demetra CORTEZ [id number] Performed for [facility] [address] [place], [place] [address] HGFR GLOMERULAR FILTRATIO N RATE INTERPRETATION~The eGFR [...] months, with or without kidney damage.~ Normal [facility] Comment on above: Performed By: #### 1 1579-0 #### [facility] [address] [place] [address] Senior Lead Java Developer - Demetra CORTEZ [id number] #### 70782-8 #### [facility] [address] [place] [address] Senior Lead Java Developer - DemetraHartselle Medical CenterDanielhood CORTEZ [id number] Performed for [facility] [address] [place] [address] Potassium [Moles/Vol] 3.8 mmol/L Normal 3.5-5.1 [facility] Comment on above: Performed By: #### 1 1579-0 #### [facility] [address] [place] [address] Senior Lead Java Developer - Demetra CORTEZ [id number] #### 79759-4 #### [facility] [address] [place] [address] Senior Lead Java Developer - Demetra CORTEZ [id number] Performed for [facility] [address] [place] [address] Protein [Mass/Vol] 7.7 g/dL Normal 6.4-8.2 [facility] Comment on above: Performed By: #### 1 1579-0 #### [facility] [address] [place] [address] Senior Lead Java Developer - Demetra CORTEZ [id number] #### 45228-5 #### [facility] [address] [place], [place] [address] Senior Lead Java Developer - Demetra CORTEZ [id number] Performed for [facility] [address] [place], [place] [address] Sodium [Moles/Vol] 140 mmol/L Normal 136-145 [facility] Comment on above: Performed By: #### 1 1579-0 #### [facility] [address] [place] [address] Senior Lead Java Developer - Demetra CORTEZ [id number] #### 66980-9 #### [facility] [address] [place] [address] Senior Lead Java Developer - Demetra CORTEZ [id number] Performed for [facility] [address] [place] [address] Urea nitrogen [Mass/Vol] 10 mg/dL Normal 9-20 [facility] Comment on above: Performed By: #### 1 1579-0 #### [facility] [address] [place] [address] Senior Lead Java Developer - Demetra CORTEZ [id number] #### 73572-8 #### [facility] [address] [place] [address] Senior Lead Java Developer - Demetra CORTEZ [id number] Performed for [facility] [address] [place], [place] [address] LITHIUMon 08-15-2023 [place] [Moles/Vol] 0.5 mmol/L Low 0.6-1.2 [facility] Comment on above: Performed By: #### 1 1579-0 #### [facility] [address] [place], [place] [address] Senior Lead Java Developer - Demetra CORTEZ [id number] #### 64274-2 #### [facility] [address] [place] [address] Senior Lead Java Developer - Demetra CORTEZ [id number] Performed for [facility] [address] [place], [place] [address] TSH DL <= 0.05 mIU/L Qnon TSH Qn 1.680 uIU/mL Normal 0.358-3.740 [facility] Comment on above: Performed By: #### 1 1579-0 #### [facility] [address] [place] [address] Senior Lead Java Developer - Demetra CORTEZ [id number] #### 25218-4 #### [facility] [address] [place] [address] Senior Lead Java Developer - Demetra CORTEZ [id number] Performed for [facility] [address] [place] [address] Urinalysis panel Auto (U)on 08-15-2023 Bacteria LM Ql (Urine sed) Normal TRACE [facility] Comment on above: Performed By: #### 5 0564-4 #### [facility] [address] [place] [address] Senior Lead Java Developer - Demetra CORTEZ [id number] Performed for [facility] [address] [place] [address] Bilirubin (U) [Mass/Vol] Negative Normal NEGATIVE [facility] Comment on above: Performed By: #### 5 0564-4 #### [facility] [address] [place] [address] Senior Lead Java Developer - Demetra CORTEZ [id number] Performed for [facility] [address] [place] [address] Clarity (U) CLEAR Normal CLEAR [facility] Comment on above: Performed By: #### 5 0564-4 #### [facility] [address] [place] [address] Senior Lead Java Developer - Demetra CORTEZ [id number] Performed for [facility] [address] [place] [address] Color (U) YELLOW Normal YELLOW [facility] Comment on above: Performed By: #### 5 0564-4 #### [facility] [address] [place] [address] Senior Lead Java Developer - Demetra CORTEZ [id number] Performed for [facility] [address] [place], [place] [address] Glucose Test strip (U) [Mass/Vol] Negative Normal NEGATIVE [facility] Comment on above: Performed By: #### 5 0564-4 #### [facility] [address] [place], [place] [address] Senior Lead Java Developer - Demetra CORTEZ [id number] Performed for [facility] [address] [place], [place] [address] HMICRO MICROSCOPIC Normal [facility] Comment on above: Performed By: #### 5 0564-4 #### [facility] [address] [place], [place] [address] Senior Lead Java Developer - Demetra CORTEZ [id number] Performed for [facility] [address] [place], [place] [address] Hyaline casts (Urine sed) [#/Area] Normal 0-8 [facility] Comment on above: Performed By: #### 5 0564-4 #### [facility] [address] [place], [place] [address] Senior Lead Java Developer - Demetra CORTEZ [id number] Performed for [facility] [address] [place], [place] [address] Ketones (U) [Mass/Vol] TRACE Abnormal NEGATIVE [facility] Comment on above: Performed By: #### 5 0564-4 #### [facility] [address] [place], [place] [address] Senior Lead Java Developer - Demetra CORTEZ [id number] Performed for [facility] [address] [place], [place] [address] Leukocyte esterase Qn (U) Negative Normal TRACE [facility] Comment on above: Performed By: #### 5 0564-4 #### [facility] [address] [place], [place] [address] Senior Lead Java Developer - Demetra CORTEZ [id number] Performed for [facility] [address] [place], [place] [address] Nitrite Ql (U) Negative Normal NEGATIVE [facility] Comment on above: Performed By: #### 5 0564-4 #### [facility] [address] [place], [place] [address] Senior Lead Java Developer - Demetra CORTEZ [id number] Performed for [facility] [address] [place], [place] [address] pH (U) 6.5 [pH] Normal 5.5-7.5 [facility] Comment on above: Performed By: #### 5 0564-4 #### [facility] [address] [place], [place] [address] Senior Lead Java Developer - Demetra CORTEZ [id number] Performed for [facility] [address] [place], [place] [address] Protein (U) [Mass/Vol] Negative Normal NEGATIVE [facility] Comment on above: Performed By: #### 5 0564-4 #### [facility] [address] [place], [place] [address] Senior Lead Java Developer - Demetra CORTEZ [id number] Performed for [facility] [address] [place], [place] [address] RBC (U) [#/Vol] Negative Normal NEGATIVE [facility] Comment on above: Performed By: #### 5 0564-4 #### [facility] [address] [place], [place] [address] Senior Lead Java Developer - Demetra CORTEZ [id number] Performed for [facility] [address] [place], [place] [address] RBC LM.HPF (Urine sed) [#/Area] Normal 0-4 [facility] Comment on above: Performed By: #### 5 0564-4 #### [facility] [address] [place], [place] [address] Senior Lead Java Developer - Demetra CORTEZ [id number] Performed for [facility] [address] [place], [place] [address] Specific gravity (U) [Rel density] 1.023 Normal 1.010-1.035 [facility] Comment on above: Performed By: #### 5 0564-4 #### [facility] [address] [place], [place] [address] Senior Lead Java Developer - Demetra CORTEZ [id number] Performed for [facility] [address] [place], [place] [address] SQUAMOUS EPITHELIALS Normal 0-5 [facility] Comment on above: Performed By: #### 5 0564-4 #### [facility] [address] [place] [address] Senior Lead Java Developer - Demetra CORTEZ [id number] Performed for [facility] [address] [place] [address] Urobilinogen Qn (U) 0.2 {Trevon'U}/dL Normal <=1.0 [facility] Comment on above: Performed By: #### 5 0564-4 #### [facility] [address] [place] [address] Senior Lead Java Developer - Demetra CORTEZ [id number] Performed for [facility] [address] [place] [address] WBC LM.HPF (Urine sed) [#/Area] Normal 0-5 [facility] Comment on above: Performed By: #### 5 0564-4 #### [facility] [address] [place] [address] Senior Lead Java Developer - Demetra CORTEZ [id number] Performed for [facility] [address] [place] [address] LUMBAR WITH OBLIQUESon 05-30 LUMBAR WITH OBLIQUES EXAM: LUMBAR WITH OBLIQUES HISTORY: Low back pain COMPARISON: None. TECHNIQUE: 5 views FINDINGS: Satisfactory alignment. Maintained vertebral body heights and disc spaces. No acute fracture or subluxation. Unremarkable soft tissues. IMPRESSION: Unremarkable exam. Normal [facility] CBC W Auto Differential pane l (Bld)on 03-22-2023 Basophils (Bld) [#/Vol] 0.05 10*3/uL Normal <=0.70 [facility] Comment on above: Performed By: #### 5 7021-8 #### [facility] [address] [place] [address] Senior Lead Java Developer - Demetra CORTEZ [id number] Basophils/100 WBC (Bld) 0.7 % Normal <=2.0 [facility] Comment on above: Performed By: #### 5 7021-8 #### [facility] [address] [place] [address] Senior Lead Java Developer - Demetra LYLESIA [id number] Eosinophils (Bld) [#/Vol] 0.14 10*3/uL Normal <=0.70 [facility] Comment on above: Performed By: #### 5 7021-8 #### [address] [place] [address] Senior Lead Java Developer - Demetra LYLESIA [id number] Eosinophils/100 WBC (Bld) 2.0 % Normal <=10.0 [facility] Comment on above: Performed By: #### 5 7021-8 #### [address] Director - Demetra LYLESIA [id number] Erythrocyte distribution width (RBC) [Entitic vol] 39.7 fL Normal 35.1-43.9 [facility] Comment on above: Performed By: #### 5 7021-8 #### [address] [place] [address] Senior Lead Java Developer - Demetra LYLESIA [id number] Hematocrit (Bld) [Volume fraction] 44.2 % Normal 40.0-54.0 [facility] Comment on above: Performed By: #### 5 7021-8 #### [address] Director - Demetra LYLESIA [id number] Hemoglobin (Bld) [Mass/Vol] 14.7 g/dL Normal 14.0-18.0 [facility] Comment on above: Performed By: #### 5 7021-8 #### [address] [place] [address] Senior Lead Java Developer - Demetra LYLESIA [id number] Immature granulocytes (Bld) [#/Vol] 0.01 10*3/uL Normal <=0.10 [facility] Comment on above: Performed By: #### 5 7021-8 #### [address] [place] [address] Senior Lead Java Developer - Demetra Daniel CLIA [id number] Immature granulocytes/100 WBC (Bld) 0.10 % Normal <=1.50 [facility] Comment on above: Performed By: #### 5 7021-8 #### [address] [place] [address] Senior Lead Java Developer - Demetra LYLESIA [id number] Lymphocytes (Bld) [#/Vol] 2.27 10*3/uL Normal 1.20-3.40 [facility] Comment on above: Performed By: #### 5 7021-8 #### [address] [place] [address] Senior Lead Java Developer - Demetra LYLESIA [id number] Lymphocytes/100 WBC (Bld) 32.5 % Normal 20.0-40.0 [facility] Comment on above: Performed By: #### 5 7021-8 #### [place] [address] Senior Lead Java Developer - Demetra LYLESIA [id number] MCH (RBC) [Entitic mass] 27.9 pg Normal 27.0-31.0 [facility] Comment on above: Performed By: #### 5 7021-8 #### [place] [address] Senior Lead Java Developer - Demetra LYLESIA [id number] MCHC (RBC) [Mass/Vol] 33.3 g/dL Normal 32.0-36.0 [facility] Comment on above: Performed By: #### 5 7021-8 #### [place] [address] Senior Lead Java Developer - Demetra LYLESIA [id number] MCV (RBC) [Entitic vol] 84.0 fL Normal 80.0-100.0 [facility] Comment on above: Performed By: #### 5 7021-8 #### [place] [address] Senior Lead Java Developer - Demetra LYLESIA [id number] Monocytes (Bld) [#/Vol] 0.69 10*3/uL High 0.10-0.60 [facility] Comment on above: Performed By: #### 5 7021-8 #### [facility] [address] [place] [address] Senior Lead Java Developer - Demetra LYLESIA [id number] Monocytes/100 WBC (Bld) 9.9 % High <=8.0 [facility] Comment on above: Performed By: #### 5 7021-8 #### [place] [address] [place] [address] Senior Lead Java Developer - Demetra LYLESIA [id number] Neutrophils (Bld) [#/Vol] 3.83 10*3/uL Normal 1.40-6.50 [facility] Comment on above: Performed By: #### 5 7021-8 #### [place] [address] [place] [address] Senior Lead Java Developer - Demetra LYLESIA [id number] Neutrophils/100 WBC (Bld) 54.8 % Normal 50.0-70.0 [facility] Comment on above: Performed By: #### 5 7021-8 #### [place] [address] [place] [address] Senior Lead Java Developer - Demetra LYLESIA [id number] Nucleated RBC (Bld) [#/Vol] 0.00 10*3/uL Normal <=0.10 [facility] Comment on above: Performed By: #### 5 7021-8 #### [place] [address] [place] [address] Senior Lead Java Developer - Demetra LYLESIA [id number] Platelet mean volume (Bld) [Entitic vol] 10.0 fL Normal 9.0-13.0 [facility] Comment on above: Performed By: #### 5 7021-8 #### [place] [address] [place] [address] Senior Lead Java Developer - Demetra LYLESIA [id number] Platelets (Bld) [#/Vol] 317 10*3/uL Normal 130-400 [facility] Comment on above: Performed By: #### 5 7021-8 #### [place] [address] [place] [address] Senior Lead Java Developer - Demetra CORTEZ [id number] RBC (Bld) [#/Vol] 5.26 10*6/uL Normal 4.00-6.30 [facility] Comment on above: Performed By: #### 5 7021-8 #### [facility] [address] [place] [address] Senior Lead Java Developer - Demetra CORTEZ [id number] WBC (Bld) [#/Vol] 6.99 10*3/uL Normal 4.80-10.80 [facility] Comment on above: Performed By: #### 5 7021-8 #### [facility] [address] [place] [address] Senior Lead Java Developer - Demetra CORTEZ [id number] Comprehensive metabolic 2000 panelon 03-22-2023 Albumin [Mass/Vol] 4.2 g/dL Normal 3.4-5.0 [facility] Comment on above: Performed By: #### 2 4323-8 #### [facility] [address] [place] [address] Senior Lead Java Developer - Demetra CORTEZ [id number] Performed for [facility] [address] [place] [address] #### 19792-6 #### [facility] [address] [place] [address] Senior Lead Java Developer - Demetra CORTEZ [id number] ALP [Catalytic activity/Vol] 127 U/L Normal 50-136 [facility] Comment on above: Performed By: #### 2 4323-8 #### [facility] [address] [place] [address] Senior Lead Java Developer - Demetra CORTEZ [id number] Performed for [facility] [address] [place] [address] #### 81787-8 #### [facility] [address] [place] [address] Senior Lead Java Developer - Demetra CORTEZ [id number] ALT [Catalytic activity/Vol] 114 U/L High 16-63 [facility] Comment on above: Performed By: #### 2 4323-8 #### [facility] [address] [place] [address] Senior Lead Java Developer - Demetra LYLESIA [id number] Performed for [facility] [address] [place] [address] #### 45339-3 #### [facility] [address] [place] [address] Senior Lead Java Developer - Demetra LYLESIA [id number] Anion gap [Moles/Vol] 6.1 mmol/L Normal <=15.0 [facility] Comment on above: Performed By: #### 2 4323-8 #### [facility] [address] [place] [address] Senior Lead Java Developer - Demetra LYLESIA [id number] Performed for [facility] [address] [place] [address] #### 17795-6 #### [facility] [address] [place] [address] Senior Lead Java Developer - Demetra LYLESIA [id number] AST [Catalytic activity/Vol] 51 U/L High 15-37 [facility] Comment on above: Performed By: #### 2 4323-8 #### [facility] [address] [place] [address] Senior Lead Java Developer - Demetra LYLESIA [id number] Performed for [facility] [address] [place] [address] #### 36444-9 #### [facility] [address] [place] [address] Senior Lead Java Developer - Demetra LYLESIA [id number] Bilirubin [Mass/Vol] 0.5 mg/dL Normal 0.2-1.0 [facility] Comment on above: Performed By: #### 2 4323-8 #### [facility] [address] [place] [address] Senior Lead Java Developer - Demetra LYLESIA [id number] Performed for [facility] [address] [place] [address] #### 04555-2 #### [facility] [address] [place] [address] Senior Lead Java Developer - Demetra LYLESIA [id number] Calcium [Mass/Vol] 8.9 mg/dL Normal 8.5-10.1 [facility] Comment on above: Performed By: #### 2 4323-8 #### [facility] [address] [place] [address] Senior Lead Java Developer - Demetra LYLESIA [id number] Performed for [facility] [address] [place] [address] #### 49093-6 #### [facility] [address] [place] [address] Senior Lead Java Developer - Demetra LYLESIA [id number] Chloride [Moles/Vol] 107 mmol/L Normal 98-107 [facility] Comment on above: Performed By: #### 2 4323-8 #### [facility] [address] [place] [address] Senior Lead Java Developer - Demetra Daniel CLIA [id number] Performed for [facility] [address] [place] [address] #### 90011-4 #### [facility] [address] [place] [address] Senior Lead Java Developer - Demetra LYLESIA [id number] CO2 [Moles/Vol] 27 mmol/L Normal 21-32 [facility] Comment on above: Performed By: #### 2 4323-8 #### [facility] [address] [place] [address] Senior Lead Java Developer - Demetra LYLESIA [id number] Performed for [facility] [address] [place] [address] #### 34884-4 #### [facility] [address] [place] [address] Senior Lead Java Developer - Demetra LYLESIA [id number] Creatinine [Mass/Vol] 0.68 mg/dL Normal 0.67-1.17 [facility] Comment on above: Performed By: #### 2 4323-8 #### [facility] [address] [place] [address] Senior Lead Java Developer - Demetra CORTEZ [id number] Performed for [facility] [address] [place] [address] #### 29006-4 #### [facility] [address] [place] [address] Senior Lead Java Developer - Demetra CORTEZ [id number] GFR/1.73 sq M.predicted MDRD (S/P/Bld) [Vol rate/Area] Normal 59-N/A [facility] Comment on above: Performed By: #### 2 4323-8 #### [facility] [address] [place] [address] Senior Lead Java Developer - Demetra CORTEZ [id number] Performed for [facility] [address] [place] [address] #### 06819-2 #### [facility] [address] [place] [address] Senior Lead Java Developer - Demetra CORTEZ [id number] Glucose [Mass/Vol] 101 mg/dL Normal 74-106 [facility] Comment on above: Performed By: #### 2 4323-8 #### [facility] [address] [place] [address] Senior Lead Java Developer - Demetra CORTEZ [id number] Performed for [facility] [address] [place] [address] #### 78738-5 #### [facility] [address] [place] [address] Senior Lead Java Developer - Demetra CORTEZ [id number] HGFR GLOMERULAR FILTRATIO N RATE INTERPRETATION~The eGFR [...] months, with or without kidney damage.~ Normal [facility] Comment on above: Performed By: #### 2 4323-8 #### [facility] [address] [place] [address] Senior Lead Java Developer - Demetra Daniel CLIA [id number] Performed for [facility] [address] [place] [address] #### 63417-9 #### [facility] [address] [place] [address] Senior Lead Java Developer - Demetra LYLESIA [id number] Potassium [Moles/Vol] 3.9 mmol/L Normal 3.5-5.1 [facility] Comment on above: Performed By: #### 2 4323-8 #### [facility] [address] [place] [address] Senior Lead Java Developer - Demetra Daniel CLIA [id number] Performed for [facility] [address] [place] [address] #### 56970-2 #### [facility] [address] [place] [address] Senior Lead Java Developer - Demetra LYLESIA [id number] Protein [Mass/Vol] 7.1 g/dL Normal 6.4-8.2 [facility] Comment on above: Performed By: #### 2 4323-8 #### [facility] [address] [place] [address] Senior Lead Java Developer - Demetra Daniel CLIA [id number] Performed for [facility] [address] [place] [address] #### 93784-6 #### [facility] [address] [place] [address] Senior Lead Java Developer - Demetra LYLESIA [id number] Sodium [Moles/Vol] 140 mmol/L Normal 136-145 [facility] Comment on above: Performed By: #### 2 4323-8 #### [facility] [address] [place] [address] Senior Lead Java Developer - Demetra CORTEZ [id number] Performed for [facility] [address] [place] [address] #### 66401-8 #### [facility] [address] [place] [address] Senior Lead Java Developer - Demetra CORTEZ [id number] Urea nitrogen [Mass/Vol] 10 mg/dL Normal - [facility] Comment on above: Performed By: #### 2 4323-8 #### [facility] [address] [place] [address] Senior Lead Java Developer - Demetra CORTEZ [id number] Performed for [facility] [address] [place] [address] #### 01259-2 #### [facility] [address] [place] [address] Senior Lead Java Developer - Demetra CORTEZ [id number] LITHIUMon 03-22-2023 [place] [Moles/Vol] 0.4 mmol/L Low 0.6-1.2 [facility] Comment on above: Performed By: #### 1 4334-7 #### [facility] [address] [place] [address] Senior Lead Java Developer - Demetra CORTEZ [id number] TSH DL <= 0.05 mIU/L Qnon TSH Qn 3.200 uIU/mL Normal 0.358-3.740 [facility] Comment on above: Performed By: #### 2 4323-8 #### [facility] [address] [place] [address] Senior Lead Java Developer - Demetra CORTEZ [id number] Performed for [facility] [address] [place] [address] #### 03067-8 #### [facility] [address] [place] [address] Senior Lead Java Developer - Demetra CORTEZ [id number] Urinalysis panel Auto (U)on 03-22-2023 Bacteria LM.HPF (Urine sed) [#/Area] Negative Normal TRACE [facility] Comment on above: Performed By: #### 5 0564-4 #### [facility] [address] [place] [address] Senior Lead Java Developer - [facility] Center[facility] CLIA [id number] Bilirubin Ql (U) Negative Normal NEGATIVE [facility] Comment on above: Performed By: #### 5 0564-4 #### [facility] [address] [place] [address] Senior Lead Java Developer - [facility] RAFALIA [id number] Clarity (U) CLEAR Normal CLEAR [facility] Comment on above: Performed By: #### 5 0564-4 #### [facility] [address] [place] [address]. [place] [address] Senior Lead Java Developer - [facility]Hart[facility] CenterDaniel CLIA [id number] Color (U) DK YELLOW Abnormal YELLOW [facility] Comment on above: Performed By: #### 5 0564-4 #### [place] [address] Senior Lead Java Developer [facility] CLIA [id number] Glucose Ql (U) Negative Normal NEGATIVE [facility] Comment on above: Performed By: #### 5 0564-4 #### [facility] [address] [place] [address]. [place] [address] Senior Lead Java Developer [facility] CLIA [id number] Hemoglobin Ql (U) Negative Normal NEGATIVE [facility] Comment on above: Performed By: #### 5 0564-4 #### [facility] [address] [place] [address] Senior Lead Java Developer - [facility] CLIA [id number] HMICRO MICROSCOPIC Normal [facility] Comment on above: Performed By: #### 5 0564-4 #### [facility] [address] [place] [address] Senior Lead Java Developer - [facility]Hart[facility] CenterDaniel CLIA [id number] Hyaline casts (Urine sed) [#/Area] 0-8 Normal 0-8 [facility] Comment on above: Performed By: #### 5 0564-4 #### [facility] [address] [place] [address] Senior Lead Java Developer [facility] [id number] KETONE 1+ Abnormal NEGATIVE [facility] Comment on above: Performed By: #### 5 0564-4 #### [facility] [address] [place] [address] Senior Lead Java Developer - [facility] [id number] Leukocyte esterase Test strip Ql (U) Negative Normal TRACE [facility] Comment on above: Performed By: #### 5 0564-4 #### [facility] [address] [facility] [place] [address] Senior Lead Java Developer - [facility] [id number] Nitrite Ql (U) Negative Normal NEGATIVE [facility] Comment on above: Performed By: #### 5 0564-4 #### [facility] [address] [place] [address]. [place] [address] Senior Lead Java Developer - [facility] [id number] pH (U) 6.0 [pH] Normal 5.5-7.5 [facility] Comment on above: Performed By: #### 5 0564-4 #### [facility] [address] [place] [address]. [place] [address] Senior Lead Java Developer - [facility] [id number] Protein Ql (U) TRACE Abnormal NEGATIVE [facility] Comment on above: Performed By: #### 5 0564-4 #### [facility] [address] [place] [address]. [place] [address] Senior Lead Java Developer - [facility] [id number] RBC LM.HPF (Urine sed) [#/Area] 0-4 Normal 0-4 [facility] Comment on above: Performed By: #### 5 0564-4 #### [facility] [address] [place] [address]. [place] [address] Senior Lead Java Developer [facility] [id number] Specific gravity (U) [Rel density] 1.034 Normal 1.010-1.035 [facility] Comment on above: Performed By: #### 5 0564-4 #### [facility] [address] [place] [address] Senior Lead Java Developer - [facility] [id number] SQUAMOUS EPITHELIALS 0-5 Normal 0-5 [facility] Comment on above: Performed By: #### 5 0564-4 #### [facility] [address] [place] [address] Senior Lead Java Developer - [facility] [id number] Urobilinogen Qn (U) 1.0 {Trevon'U}/dL Normal <=1.0 [facility] Comment on above: Performed By: #### 5 0564-4 #### [address] [place] [address] Senior Lead Java Developer - [facility] [id number] WBC LM.HPF (Urine sed) [#/Area] 0-5 Normal 0-5 [facility] Comment on above: Performed By: #### 5 0564-4 #### [address] [place] [address] Senior Lead Java Developer - [facility] [id number] XR Chest PA and Lateralon IMPRESSION: Left lower lobe opacity concerning for possible pneumonia. However, overlying soft tissues could result in a similar appearance. Correlation recommended. Slab Tripper: MARTINA Transcribe Date/Time: Jan 24 2023 12:03P Dictated by : JUANITO MONK MD This examination was interpreted and the report reviewed and electronically signed by: JUANITO MONK MD on Jan 24 2023 12:05PM [facility] DIVISION OF RADIOLOGY * * *Final Report* [...] soft tissues: Unremarkable. DIVISION OF RADIOLOGY Provider, Debbi Epperson - 01/24/2023 * * *Final Report* * [...] result in a similar appearance. Correlation recommended. Slab Tripper: MARTINA Transcribe Date/Time: Jan 24 2023 12:03P Dictated by : JUANITO MONK MD This examination was interpreted and the report reviewed and electronically signed by: JUANITO MONK MD on Jan 24 2023 12:05PM EST [facility] Radiology Study observation (narrative) Mishel velazquez [facility] XR Chest PA and LateralOrder ed By: [facility] Provider on 01-24-2023 [facility] Absolute lymphocyte countOrd ered By: Dr. Santo on 12-26-2022 Lymphocytes Auto (Unsp spec) [#/Vol] 2.02 10*3/uL 0.83-4.51 [facility] Basophil percentageOrdered B y: Dr. Santo on 12-26-2022 Basophils/100 WBC (Bld) 0.5 % 0-1 [facility] Chloride [Moles/Vol] 108 mmol/L 98-107 [facility] Eosinophils/100 WBC (Bld) 1.4 % 0-3 [facility] Glucose [Mass/Vol] 118 mg/dL 74-106 [facility] Comment on above: Fasting Glucose resu lt from 100 to 125 mg/dL suggests IMPAIRED HOMEOSTASIS per A.D.A. criteria. Neutrophils (Bld) [#/Vol] 5.6 10*3/uL 2.0-7.7 [facility] Neutrophils/100 WBC (Bld) 64.9 % 34-64 [facility] Potassium [Moles/Vol] 3.4 mmol/L 3.5-5.1 [facility] Sodium [Moles/Vol] 140 mmol/L 136-145 [facility] WBC (Bld) [#/Vol] 8.6 10*3/uL 4.5-13.0 [facility] Blood erythrocytes count (nu mber/volume)Ordered By: Dr. Santo on 12-26-2022 RBC (Bld) [#/Vol] 5.23 10*6/uL 4.5-5.1 [facility] Blood hemoglobin measurement (mass/volume)Ordered By: Dr. Santo on 12-26-2022 Hemoglobin (Bld) [Mass/Vol] 14.9 g/dL 13.0-16.5 [facility] Blood lymphocytes/100 leukoc ytesOrdered By: Dr. Santo on 12-26-2022 Lymphocytes/100 WBC (Bld) 23.6 % 25-45 [facility] Blood monocytes/100 leukocyt esOrdered By: Dr. Santo on 12-26-2022 Monocytes/100 WBC (Bld) 9.0 % 3-6 [facility] Blood platelet mean volumeOr dered By: Dr. Santo on 12-26-2022 Platelet mean volume (Bld) [Entitic vol] 10.2 fL 6.2-12.0 [facility] COVID-19 virus antigen assay Ordered By: Dr. Santo on 12-26-2022 SARS-CoV-2 (COVID-19) Ag IA.rapid Ql (Resp) [facility] Determination of erythrocyte mean corpuscular volume (MCV)Ordered By: Dr. Santo on 12-26-2022 MCV (RBC) [Entitic vol] 85.3 fL 78-96 [facility] Hematocrit Auto (Bld) [Volum e fraction]Ordered By: Dr. Santo on 12-26-2022 Hematocrit (Bld) [Volume fraction] 44.6 % 36-47 [facility] Laboratory - Chemistry and C hemistry - challengeOrdered By: Dr. Santo on 12-26-2022 CO2 [Moles/Vol] 26.0 mmol/L 21.0-32.0 [facility] Urea nitrogen/Creatinine [Mass ratio] 14.9 mg/mg 10-20 [facility] - Drug toxicology Ordered By: Dr. Santo on 12-26-2022 Amphetamines Ql (U) Negative <1000 ng/mL [facility] Benzodiazepines Ql (U) Negative < 200 ng/mL [facility] Cannabinoids Screen Ql (U) Negative < 50 ng/mL [facility] Cocaine Ql (U) Negative < 300 ng/mL [facility] Opiates Ql (U) Negative < 300 ng/mL [facility] Laboratory - Hematology and Cell countsOrdered By: Dr. Santo on 12-26-2022 Erythrocyte distribution width (RBC) [Entitic vol] 40.1 fL 35.1-43.9 [facility] Erythrocyte distribution width (RBC) [Ratio] 12.9 % 11.6-14.6 [facility] Immature granulocytes/100 WBC (Bld) 0.600 % 0.0-0.9 [facility] Comment on above: IG% - Immature Granu locytes (promyelocytes, myelocytes and metamyelocytes) > 1% indicates that a LEFT SHIFT is Present. MCH (RBC) [Entitic mass] 28.5 pg 25.0-35.0 [facility] Nucleated RBC/100 WBC (Bld) [Ratio] 0 % 0-5 [facility] MCHC Auto (RBC) [Mass/Vol]Or dered By: Dr. Santo on 12-26-2022 MCHC (RBC) [Mass/Vol] 33.4 g/dL 32-36 [facility] No Panel InformationOrdered By: Dr. Santo on 12-26-2022 Estimated Creatinine Clearance Calc 192.00 ml/min [facility] Estimated GFR (MDRD) [facility] Comment on above: Test not performedAf rican Guatemalan GFR Calc Estimated GFR (MDRD) Non-Af [facility] Comment on above: Test not performedNo n- GFR Calc Ethyl Alcohol Level < 3.0 mg/dL [facility] Comment on above: The serum:whole bloo d ethanol ratio is approximately 1.14and varies slightly with hematocrit. Medical Alcohol reference interval and critical value innon-tolerant individuals; 50 - 100 Impairment 100 Intoxication 100 - 250 Severe Poisoning 250 - 400 Deep/possible fatal coma MDMA (Ecstasy) Screen Negative < 500 ng/mL [facility] Urine Barbiturates Screen Negative < 200 ng/mL [facility] Urine Drug Screen Comment [facility] Comment on above: CONFIRMATORY TESTING FOR [...] Methadone Screen Negative < 300 ng/mL [facility] Platelets bldOrdered By: Dr. Santo on 12-26-2022 Platelets (Bld) [#/Vol] 325 10*3/uL 150-450 [facility] Serum or plasma calcium rhona urement (mass/volume)Ordered By: Dr. Santo on 12-26-2022 Calcium [Mass/Vol] 9.0 mg/dL 8.5-10.1 [facility] Serum or plasma creatinine m easurement (mass/volume)Ordered By: Dr. Santo on 12-26-2022 Creatinine [Mass/Vol] 0.67 mg/dL 0.70-1.30 [facility] Comment on above: The validity of the calculated GFR & GFRAA in patients over 70 years has not been determined. Clinical correlation is essential. Serum or plasma urea nitroge n measurement (mass/volume)Ordered By: Dr. Santo on 12-26-2022 Urea nitrogen [Mass/Vol] 10 mg/dL 7-18 [facility] Thin prep Papanicolaou smear with manual screeningOrdered By: Dr. Santo on 12-26-2022 Thin prep Papanicolaou smear with manual screening 6 5-15 [facility] Urine phencyclidine (PCP) de tectionOrdered By: Dr. Santo on 12-26-2022 Phencyclidine Ql (U) Negative < 25 ng/mL [facility] Drugs of Abuse with THC, uri ne-[place] 08-06-2022 Amphetamines, Ur Negative Negative [facility] Comment on above: Threshold = 1000 ng/ mL Barbiturates, Ur Negative Negative [facility] Comment on above: Threshold = 200 ng/m L Benzodiazepines, Ur Negative Negative [facility] Comment on above: Threshold = 200 ng/m L Cocaine Negative Negative [facility] Comment on above: Threshold = 300 ng/m L Methadone, Ur Negative Negative [facility] Comment on above: Threshold = 300 ng/m L Opiates Negative Negative [facility] Comment on above: Threshold = 300 ng/m L PCP-Phencyclidine Negative Negative [facility] Comment on above: Threshold = 25 ng/mL THC,50,Urine Negative Negative [facility] Comment on above: Threshold = 50 ng/mL Note: This testing is intended for medical management and treatment only. Analysis performed using non-forensic (screening/non-confirmatory) procedures. Reason for preventin g automatic release->Other Release to patient->Manual release only [facility] Absolute lymphocyte counton 06-28-2022 Lymphocytes Auto (Unsp spec) [#/Vol] 2.06 10*3/uL 0.83-4.51 [facility] Work Phone: Basophil percentageon 2021 Basophils/100 WBC (Bld) 0.5 % 0-1 [facility] Work Phone: Chloride [Moles/Vol] 107 mmol/L 98-107 [facility] Work Phone: Eosinophils/100 WBC (Bld) 0.4 % 0-3 [facility] Work Phone: Glucose [Mass/Vol] 101 mg/dL 74-106 [facility] Work Phone: Comment on above: Fasting Glucose resu lt from 100 to 125 mg/dL suggests IMPAIRED HOMEOSTASIS per A.D.A. criteria. Neutrophils (Bld) [#/Vol] 5.7 10*3/uL 2.0-7.7 [facility] Work Phone: [phone] Neutrophils/100 WBC (Bld) 66.3 % 34-64 [facility] Work Phone: [phone] Potassium [Moles/Vol] 4.1 mmol/L 3.5-5.1 [facility] Work Phone: [phone] Sodium [Moles/Vol] 138 mmol/L 136-145 [facility] Work Phone: [phone] WBC (Bld) [#/Vol] 8.5 10*3/uL 4.5-13.0 [facility] Work Phone: [phone] Blood erythrocytes count (nu mber/volume)on 06-28-2022 RBC (Bld) [#/Vol] 5.35 10*6/uL 4.5-5.1 [facility] Work Phone: [phone] Blood hemoglobin measurement (mass/volume)on 06-28-2022 Hemoglobin (Bld) [Mass/Vol] 15.5 g/dL 13.0-16.5 [facility] Work Phone: [phone] Blood lymphocytes/100 leukoc yteson 06-28-2022 Lymphocytes/100 WBC (Bld) 24.2 % 25-45 [facility] Work Phone: [phone] Blood monocytes/100 leukocyt eson 06-28-2022 Monocytes/100 WBC (Bld) 8.5 % 3-6 [facility] Work Phone: [phone] Blood platelet mean volumeon 06-28-2022 Platelet mean volume (Bld) [Entitic vol] 10.5 fL 6.2-12.0 [facility] Work Phone: Determination of erythrocyte mean corpuscular volume (MCV)on 06-28-2022 MCV (RBC) [Entitic vol] 83.4 fL 78-96 [facility] Work Phone: Hematocrit Auto (Bld) [Volum e fraction]on 06-28-2022 Hematocrit (Bld) [Volume fraction] 44.6 % 36-47 [facility] Work Phone: [phone] Laboratory - Chemistry and C hemistry - challengeon 06-28-2022 CO2 [Moles/Vol] 26.0 mmol/L 21.0-32.0 [facility] Work Phone: [phone] Urea nitrogen/Creatinine [Mass ratio] 9.9 mg/mg 10-20 [facility] Work Phone: [phone] Laboratory - Drug toxicology on 06-28-2022 Amphetamines Ql (U) Negative <1000 ng[facility] Work Phone: [phone] Benzodiazepines Ql (U) Negative < 200 ng/mL [facility] Work Phone: [phone] Cannabinoids Screen Ql (U) Negative < 50 ng/mL [facility] Work Phone: [phone] Cocaine Ql (U) Negative < 300 ng/mL [facility] Work Phone: [phone] Opiates Ql (U) Negative < 300 ng/mL [facility] Work Phone: [phone] Laboratory - Hematology and Cell countson 06-28-2022 Erythrocyte distribution width (RBC) [Entitic vol] 37.6 fL 35.1-43.9 [facility] Work Phone: [phone] Erythrocyte distribution width (RBC) [Ratio] 12.4 % 11.6-14.6 [facility] Work Phone: [phone] Immature granulocytes/100 WBC (Bld) 0.100 % 0.0-0.9 [facility] Work Phone: [phone] Comment on above: IG% - Immature Granu locytes (promyelocytes, myelocytes and metamyelocytes) > 1% indicates that a LEFT SHIFT is Present. MCH (RBC) [Entitic mass] 29.0 pg 25.0-35.0 [facility] Work Phone: [phone] Nucleated RBC/100 WBC (Bld) [Ratio] 0 % 0-5 [facility] Work Phone: [phone] MCHC Auto (RBC) [Mass/Vol]on 06-28-2022 MCHC (RBC) [Mass/Vol] 34.8 g/dL 32-36 [facility] Work Phone: No Panel Informationon 06-28 Estimated Creatinine Clearance Calc 185.26 ml/min [facility] Work Phone: [phone] Estimated GFR (MDRD) [facility] Work Phone: Comment on above: Test not performedAf rican Guatemalan GFR Calc Estimated GFR (MDRD) Non-Af [facility] Work Phone: [phone] Comment on above: Test not performedNo n- GFR Calc Ethyl Alcohol Level 4.0 mg/dL [facility] Work Phone: Comment on above: The serum:whole bloo d ethanol ratio is approximately 1.14and varies slightly with hematocrit. Medical Alcohol reference interval and critical value innon-tolerant individuals; 50 - 100 Impairment 100 Intoxication 100 - 250 Severe Poisoning 250 - 400 Deep/possible fatal coma MDMA (Ecstasy) Screen Negative < 500 ng/mL [facility] Work Phone: Urine Barbiturates Screen Negative < 200 ng/mL [facility] Work Phone: Urine Drug Screen Comment [facility] Work Phone: Comment on above: CONFIRMATORY [...] Urine Methadone Screen Negative < 300 ng/mL [facility] Work Phone: Platelets bldon 06-28-2022 Platelets (Bld) [#/Vol] 315 10*3/uL 150-450 [facility] Work Phone: Serum or plasma calcium rhona urement (mass/volume)on 06-28-2022 Calcium [Mass/Vol] 9.3 mg/dL 8.5-10.1 [facility] Work Phone: Serum or plasma creatinine m easurement (mass/volume)on 06-28-2022 Creatinine [Mass/Vol] 0.70 mg/dL 0.70-1.30 [facility] Work Phone: Comment on above: The validity of the calculated GFR & GFRAA in patients over 70 years has not been determined. Clinical correlation is essential. Serum or plasma urea nitroge n measurement (mass/volume)on 06-28-2022 Urea nitrogen [Mass/Vol] 7 mg/dL 7-18 [facility] Work Phone: Thin prep Papanicolaou smear with manual screeningon 06-28-2022 Thin prep Papanicolaou smear with manual screening 5 5-15 [facility] Work Phone: Urine phencyclidine (PCP) de tectionon 06-28-2022 Phencyclidine Ql (U) Negative < 25 ng/mL [facility] Work Phone: 30on 06-26-2022 30 The [...] medications as prescribed 06/26/2022 1245 by Jairo Olvera, RN Outcome: Adequate for Discharge 06/26/2022 1137 by Jairo Olvera, RN Outcome: Progressing Note: Pt fully med [...] 1048 by Jairo Olvera RN Outcome: Progressing [facility] 94on 06-26-2022 94 Group Topic: Social Work Group Date: 06/26/2022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 83.5 fL 78-96 [facility] Work Phone: Hematocrit Auto (Bld) [Volum e fraction]on 12-03-2021 Hematocrit (Bld) [Volume fraction] 42.5 % 36-47 [facility] Work Phone: Laboratory - Chemistry and C hemistry - challengeon 12-03-2021 CO2 [Moles/Vol] 29.0 mmol/L 21.0-32.0 [facility] Work Phone: Urea nitrogen/Creatinine [Mass ratio] 18.9 mg/mg 10-20 [facility] Work Phone: Laboratory - Drug toxicology on 12-03-2021 Amphetamines Ql (U) Negative [facility] Work Phone: Benzodiazepines Ql (U) Negative [facility] Work Phone: Cannabinoids Screen Ql (U) Negative [facility] Work Phone: Cocaine Ql (U) Negative [facility] Work Phone: Opiates Ql (U) Negative [facility] Work Phone: Laboratory - Hematology and Cell countson 12-03-2021 Erythrocyte distribution width (RBC) [Entitic vol] 38.4 fL 35.1-43.9 [facility] Work Phone: [phone] Erythrocyte distribution width (RBC) [Ratio] 12.6 % 11.6-14.6 [facility] Work Phone: [phone] Immature granulocytes/100 WBC (Bld) 0.300 % 0.0-0.9 [facility] Work Phone: Comment on above: IG% - Immature Granu locytes (promyelocytes, myelocytes and metamyelocytes) > 1% indicates that a LEFT SHIFT is Present. MCH (RBC) [Entitic mass] 28.7 pg 25.0-35.0 [facility] Work Phone: Nucleated RBC/100 WBC (Bld) [Ratio] 0 % 0-5 [facility] Work Phone: MCHC Auto (RBC) [Mass/Vol]on 12-03-2021 MCHC (RBC) [Mass/Vol] 34.4 g/dL 32-36 [facility] Work Phone: No Panel Informationon 12-03 MDMA (Ecstasy) Screen Negative [facility] Work Phone: [phone] Urine Barbiturates Screen Negative [facility] Work Phone: [phone] Urine Drug Screen Comment [facility] Work Phone: [phone] Comment on above: CONFIRMATORY TESTING FOR ALL [...] USE TESTMNEMONIC: [facility] Urine Methadone Screen Negative [facility] Work Phone: Estimated Creatinine Clearance Calc 155.37 ml/min [facility] Work Phone: [phone] Estimated GFR (MDRD) [facility] Work Phone: [phone] Comment on above: Test not performedAf rican [place] GFR Calc Estimated GFR (MDRD) Non-Af [facility] Work Phone: [phone] Comment on above: Test not performedNo n- GFR Calc Ethyl Alcohol Level < 3.0 mg/dL [facility] Work Phone: [phone] Comment on above: The serum:whole bloo d ethanol ratio is approximately 1.14and varies slightly with hematocrit. Medical Alcohol reference interval and critical value innon-tolerant individuals; 50 - 100 Impairment 100 Intoxication 100 - 250 Severe Poisoning 250 - 400 Deep/possible fatal coma Platelets bldon 12-03-2021 Platelets (Bld) [#/Vol] 323 10*3/uL 150-450 [facility] Work Phone: Serum or plasma calcium rhona urement (mass/volume)on 12-03-2021 Calcium [Mass/Vol] 9.0 mg/dL 8.5-10.1 [facility] Work Phone: Serum or plasma creatinine m easurement (mass/volume)on 12-03-2021 Creatinine [Mass/Vol] 0.79 mg/dL 0.50-0.80 [facility] ster [facility] Work Phone: Serum or plasma urea nitroge n measurement (mass/volume)on 12-03-2021 Urea nitrogen [Mass/Vol] 15 mg/dL 7-18 [facility] Work Phone: Thin prep Papanicolaou smear with manual screeningon 12-03-2021 Thin prep Papanicolaou smear with manual screening 5 5-15 [facility] Work Phone: Urine phencyclidine (PCP) de tectionon 12-03-2021 Phencyclidine Ql (U) Negative [facility] Work Phone: COVID-19, MOLECULARon 2021 SARS-CoV-2 (COVID-19) RNA LEIGHA+probe Ql (Unsp spec) Not detected Normal Not Detected [facility] Comment on above: Order Comment: This test [...] at the following links: For Healthcare Providers: https://www.fda.gov/media/087423/download For Patients: https://www.fda.gov/media/594889/download Performed By: #### L [id number] #### MH [place] [address] Evan Perkins M.D. [id number] Absolute lymphocyte counton 11-25-2021 Lymphocytes Auto (Unsp spec) [#/Vol] 2.14 10*3/uL 0.83-4.51 [facility] Work Phone: Basophil percentageon 2021 Basophils/100 WBC (Bld) 0.5 % 0-1 [facility] Work Phone: Chloride [Moles/Vol] 108 mmol/L 98-107 [facility]: Eosinophils/100 WBC (Bld) 0.5 % 0-3 [facility] Work Phone: Glucose [Mass/Vol] 95 mg/dL 74-106 [facility] Work Phone: Neutrophils (Bld) [#/Vol] 4.6 10*3/uL 2.0-7.7 [facility] Work Phone: Neutrophils/100 WBC (Bld) 61.0 % 34-64 [facility] Work Phone: Potassium [Moles/Vol] 4.3 mmol/L 3.5-5.1 [facility] Work Phone: Sodium [Moles/Vol] 141 mmol/L 136-145 [facility] Work Phone: WBC (Bld) [#/Vol] 7.5 10*3/uL 4.5-13.0 [facility] Work Phone: Blood erythrocytes count (nu mber/volume)on 11-25-2021 RBC (Bld) [#/Vol] 5.06 10*6/uL 4.5-5.1 [facility] Work Phone: Blood hemoglobin measurement (mass/volume)on 11-25-2021 Hemoglobin (Bld) [Mass/Vol] 14.5 g/dL 13.0-16.5 [facility] Work Phone: Blood lymphocytes/100 leukoc yteson 11-25-2021 Lymphocytes/100 WBC (Bld) 28.5 % 25-45 [facility] Work Phone: Blood monocytes/100 leukocyt eson 11-25-2021 Monocytes/100 WBC (Bld) 9.0 % 3-6 [facility] Work Phone: Blood platelet mean volumeon 11-25-2021 Platelet mean volume (Bld) [Entitic vol] 9.8 fL 6.2-12.0 [facility] Work Phone: Determination of erythrocyte mean corpuscular volume (MCV)on 11-25-2021 MCV (RBC) [Entitic vol] 86.0 fL 78-96 [facility] Work Phone: Hematocrit Auto (Bld) [Volum e fraction]on 11-25-2021 Hematocrit (Bld) [Volume fraction] 43.5 % 36-47 [facility] Work Phone: Laboratory - Chemistry and C hemistry - challengeon 11-25-2021 CO2 [Moles/Vol] 29.0 mmol/L 21.0-32.0 [facility] Work Phone: Urea nitrogen/Creatinine [Mass ratio] 19.8 mg/mg 10-20 [facility] Work Phone: Laboratory - Drug toxicology on 11-25-2021 Amphetamines Ql (U) Negative [facility] Work Phone: Benzodiazepines Ql (U) Negative [facility] Work Phone: Cannabinoids Screen Ql (U) Negative [facility] Work Phone: Cocaine Ql (U) Negative [facility] Work Phone: Opiates Ql (U) Negative [facility] Work Phone: Laboratory - Hematology and Cell countson 11-25-2021 Erythrocyte distribution width (RBC) [Entitic vol] 40.2 fL 35.1-43.9 [facility] Work Phone: [phone] Erythrocyte distribution width (RBC) [Ratio] 12.9 % 11.6-14.6 [facility] Work Phone: Immature granulocytes/100 WBC (Bld) 0.500 % 0.0-0.9 [facility] Work Phone: [phone] Comment on above: IG% - Immature Granu locytes (promyelocytes, myelocytes and metamyelocytes) > 1% indicates that a LEFT SHIFT is Present. MCH (RBC) [Entitic mass] 28.7 pg 25.0-35.0 [facility] Work Phone: [phone] Nucleated RBC/100 WBC (Bld) [Ratio] 0 % 0-5 [facility] Work Phone: [phone] MCHC Auto (RBC) [Mass/Vol]on 11-25-2021 MCHC (RBC) [Mass/Vol] 33.3 g/dL 32-36 [facility] Work Phone: [phone] Panel Informationon 11-25 MDMA (Ecstasy) Screen Negative [facility] Work Phone: [phone] Urine Barbiturates Screen Negative [facility] Work Phone: [phone] Urine Drug Screen Comment [facility] Work Phone: [phone] Comment on above: CONFIRMATORY TESTING FOR ALL [...] USE TESTMNEMONIC: [facility] Urine Methadone Screen Negative [facility] Work Phone: [phone] Estimated Creatinine Clearance Calc 161.50 ml/min [facility] Work Phone: [phone] Estimated GFR (MDRD) [facility] Work Phone: [phone] Comment on above: Test not performedAf rican [place] GFR Calc Estimated GFR (MDRD) Non-Af [facility] Work Phone: [phone] Comment on above: Test not performedNo n- GFR Calc Ethyl Alcohol Level < 3.0 mg/dL [facility] Work Phone: [phone] Comment on above: The serum:whole bloo d ethanol ratio is approximately 1.14and varies slightly with hematocrit. Medical Alcohol reference interval and critical value innon-tolerant individuals; 50 - 100 Impairment 100 Intoxication 100 - 250 Severe Poisoning 250 - 400 Deep/possible fatal coma Platelets bldon 11-25-2021 Platelets (Bld) [#/Vol] 344 10*3/uL 150-450 [facility] Work Phone: [phone] Serum or plasma calcium rhona urement (mass/volume)on 11-25-2021 Calcium [Mass/Vol] 9.4 mg/dL 8.5-10.1 [facility] Work Phone: [phone] Serum or plasma creatinine m easurement (mass/volume)on 11-25-2021 Creatinine [Mass/Vol] 0.76 mg/dL 0.50-0.80 [facility] Work Phone: [phone] Serum or plasma urea nitroge n measurement (mass/volume)on 11-25-2021 Urea nitrogen [Mass/Vol] 15 mg/dL 7-18 [facility] Work Phone: [phone] Thin prep Papanicolaou smear with manual screeningon 11-25-2021 Thin prep Papanicolaou smear with manual screening 4 5-15 [facility] Work Phone: [phone] Urine phencyclidine (PCP) de tectionon 11-25-2021 Phencyclidine Ql (U) Negative [facility] Work Phone: [phone] Absolute lymphocyte counton 10-24-2021 Lymphocytes Auto (Unsp spec) [#/Vol] 1.63 10*3/uL 0.83-4.51 [facility] Work Phone: [phone] Basophil percentageon 2021 Basophils/100 WBC (Bld) 0.5 % 0-1 [facility] Work Phone: [phone] Chloride [Moles/Vol] 107 mmol/L 98-107 [facility] Work Phone: Eosinophils/100 WBC (Bld) 0.5 % 0-3 [facility] Work Phone: Glucose [Mass/Vol] 94 mg/dL 74-106 [facility] Work Phone: Neutrophils (Bld) [#/Vol] 6.0 10*3/uL 2.0-7.7 [facility] Work Phone: [phone] Neutrophils/100 WBC (Bld) 71.0 % 34-64 [facility] Work Phone: [phone] Potassium [Moles/Vol] 4.0 mmol/L 3.5-5.1 [facility] Work Phone: [phone] Sodium [Moles/Vol] 138 mmol/L 136-145 [facility] Work Phone: [phone] WBC (Bld) [#/Vol] 8.4 10*3/uL 4.5-13.0 [facility] Work Phone: [phone] Blood erythrocytes count (nu mber/volume)on 10-24-2021 RBC (Bld) [#/Vol] 5.45 10*6/uL 4.5-5.1 [facility] Work Phone: [phone] Blood hemoglobin measurement (mass/volume)on 10-24-2021 Hemoglobin (Bld) [Mass/Vol] 15.7 g/dL 13.0-16.5 [facility] Work Phone: [phone] Blood lymphocytes/100 leukoc yteson 10-24-2021 Lymphocytes/100 WBC (Bld) 19.3 % 25-45 [facility] Work Phone: Blood monocytes/100 leukocyt eson 10-24-2021 Monocytes/100 WBC (Bld) 8.3 % 3-6 [facility] Work Phone: Blood platelet mean volumeon 10-24-2021 Platelet mean volume (Bld) [Entitic vol] 10.3 fL 6.2-12.0 [facility] Work Phone: [phone] Determination of erythrocyte mean corpuscular volume (MCV)on 10-24-2021 MCV (RBC) [Entitic vol] 84.4 fL 78-96 [facility] Work Phone: Hematocrit Auto (Bld) [Volum e fraction]on 10-24-2021 Hematocrit (Bld) [Volume fraction] 46.0 % 36-47 [facility] Work Phone: Laboratory - Chemistry and C hemistry - challengeon 10-24-2021 CO2 [Moles/Vol] 27.0 mmol/L 21.0-32.0 [facility] Work Phone: Urea nitrogen/Creatinine [Mass ratio] 10.5 mg/mg 10-20 [facility] Work Phone: Laboratory - Drug toxicology on 10-24-2021 Amphetamines Ql (U) Positive [facility] Work Phone: Benzodiazepines Ql (U) Negative [facility] Work Phone: Cannabinoids Screen Ql (U) Negative [facility] Work Phone: [phone] Cocaine Ql (U) Negative [facility] Work Phone: Opiates Ql (U) Negative [facility] Work Phone: [phone] Laboratory - Hematology and Cell countson 10-24-2021 Erythrocyte distribution width (RBC) [Entitic vol] 38.8 fL 35.1-43.9 [facility] Work Phone: [phone] Erythrocyte distribution width (RBC) [Ratio] 12.6 % 11.6-14.6 [facility] Work Phone: Immature granulocytes/100 WBC (Bld) 0.400 % 0.0-0.9 [facility] Work Phone: [phone] Comment on above: IG% - Immature Granu locytes (promyelocytes, myelocytes and metamyelocytes) > 1% indicates that a LEFT SHIFT is Present. MCH (RBC) [Entitic mass] 28.8 pg 25.0-35.0 [facility] Work Phone: Nucleated RBC/100 WBC (Bld) [Ratio] 0 % 0-5 [facility] Work Phone: MCHC Auto (RBC) [Mass/Vol]on 10-24-2021 MCHC (RBC) [Mass/Vol] 34.1 g/dL 32-36 [facility] Work Phone: No Panel Informationon 10-24 Urine Barbiturates Screen Negative [facility] Work Phone: [phone] Urine Drug Screen Comment [facility] Work Phone: [phone] Comment on above: CONFIRMATORY TESTING FOR ALL [...] USE TESTMNEMONIC: [facility] Urine Methadone Screen Negative [facility] Work Phone: [phone] Urine Methamphetamine-MDMA Screen Negative [facility] Work Phone: [phone] Estimated Creatinine Clearance Calc 161.50 ml/min [facility] Work Phone: [phone] Estimated GFR (MDRD) [facility] Work Phone: [phone] Comment on above: Test not performedAf rican Guatemalan GFR Calc Estimated GFR (MDRD) Non-Af [facility] Work Phone: [phone] Comment on above: Test not performedNo n- GFR Calc Ethyl Alcohol Level < 3.0 mg/dL [facility] Work Phone: [phone] Comment on above: The serum:whole bloo d ethanol ratio is approximately 1.14and varies slightly with hematocrit. Medical Alcohol reference interval and critical value innon-tolerant individuals; 50 - 100 Impairment 100 Intoxication 100 - 250 Severe Poisoning 250 - 400 Deep/possible fatal coma SARS-CoV-2 Antigen (Rapid) [facility] Work Phone: Platelets bldon 10-24-2021 Platelets (Bld) [#/Vol] 286 10*3/uL 150-450 [facility] Work Phone: Serum or plasma calcium rhona urement (mass/volume)on 10-24-2021 Calcium [Mass/Vol] 9.2 mg/dL 8.5-10.1 [facility] Work Phone: Serum or plasma creatinine m easurement (mass/volume)on 10-24-2021 Creatinine [Mass/Vol] 0.76 mg/dL 0.50-0.80 [facility] Work Phone: Serum or plasma urea nitroge n measurement (mass/volume)on 10-24-2021 Urea nitrogen [Mass/Vol] 8 mg/dL 7-18 [facility] Work Phone: Thin prep Papanicolaou smear with manual screeningon 10-24-2021 Thin prep Papanicolaou smear with manual screening 4 5-15 [facility] Work Phone: [phone] Urine phencyclidine (PCP) de tectionon 10-24-2021 Phencyclidine Ql (U) Negative [facility] Work Phone: Absolute lymphocyte counton 10-12-2021 Lymphocytes Auto (Unsp spec) [#/Vol] 2.65 10*3/uL 0.83-4.51 [facility] Work Phone: Basophil percentageon 2021 Basophils/100 WBC (Bld) 0.4 % 0-1 [facility] Work Phone: [phone] Bilirubin [Mass/Vol] 0.30 mg/dL 0.20-1.00 [facility] Work Phone: Comment on above: For patients on eltr ombopag therapy, use of Dimension [place] TBIL is not recommended. Chloride [Moles/Vol] 108 mmol/L 98-107 [facility] Work Phone: Eosinophils/100 WBC (Bld) 0.5 % 0-3 [facility] Work Phone: Glucose [Mass/Vol] 101 mg/dL 74-106 [facility] Work Phone: Comment on above: Fasting Glucose resu lt from 100 to 125 mg/dL suggests IMPAIRED HOMEOSTASIS per A.D.A. criteria. Neutrophils (Bld) [#/Vol] 6.9 10*3/uL 2.0-7.7 [facility] Work Phone: Neutrophils/100 WBC (Bld) 66.1 % 34-64 [facility] Work Phone: Potassium [Moles/Vol] 4.0 mmol/L 3.5-5.1 [facility] Work Phone: Protein [Mass/Vol] 7.8 g/dL 6.4-8.2 [facility] Work Phone: Sodium [Moles/Vol] 141 mmol/L 136-145 [facility] Work Phone: WBC (Bld) [#/Vol] 10.4 10*3/uL 4.5-13.0 [facility] Work Phone: Blood erythrocytes count (nu mber/volume)on 10-12-2021 RBC (Bld) [#/Vol] 5.36 10*6/uL 4.5-5.1 [facility] Work Phone: Blood hemoglobin measurement (mass/volume)on 10-12-2021 Hemoglobin (Bld) [Mass/Vol] 15.5 g/dL 13.0-16.5 [facility] Work Phone: Blood lymphocytes/100 leukoc yteson 10-12-2021 Lymphocytes/100 WBC (Bld) 25.6 % 25-45 [facility] Work Phone: Blood monocytes/100 leukocyt eson 10-12-2021 Monocytes/100 WBC (Bld) 6.9 % 3-6 [facility] Work Phone: Blood platelet mean volumeon 10-12-2021 Platelet mean volume (Bld) [Entitic vol] 9.9 fL 6.2-12.0 [facility] Work Phone: Determination of erythrocyte mean corpuscular volume (MCV)on 10-12-2021 MCV (RBC) [Entitic vol] 84.0 fL 78-96 [facility] Work Phone: Hematocrit Auto (Bld) [Volum e fraction]on 10-12-2021 Hematocrit (Bld) [Volume fraction] 45.0 % 36-47 [facility] Work Phone: Laboratory - Chemistry and C hemistry - challengeon 10-12-2021 ALP [Catalytic activity/Vol] 166 U/L 74-390 [facility] Work Phone: ALT [Catalytic activity/Vol] 75 U/L 16-61 [facility] Work Phone: CO2 [Moles/Vol] 25.0 mmol/L 21.0-32.0 [facility] Work Phone: Globulin (S) [Mass/Vol] 3.5 g/dL 2.2-4.2 [facility] Work Phone: Urea nitrogen/Creatinine [Mass ratio] 19.7 mg/mg 10-20 [facility] Work Phone: Laboratory - Drug toxicology on 10-12-2021 Amphetamines Ql (U) Positive [facility] Work Phone: Benzodiazepines Ql (U) Negative [facility] Work Phone: Cannabinoids Screen Ql (U) Negative [facility] Work Phone: [phone] Cocaine Ql (U) Negative [facility] Work Phone: Opiates Ql (U) Negative [facility] Work Phone: [phone] Laboratory - Hematology and Cell countson 10-12-2021 Erythrocyte distribution width (RBC) [Entitic vol] 38.7 fL 35.1-43.9 [facility] Work Phone: [phone] Erythrocyte distribution width (RBC) [Ratio] 12.7 % 11.6-14.6 [facility] Work Phone: [phone] Immature granulocytes/100 WBC (Bld) 0.500 % 0.0-0.9 [facility] Work Phone: [phone] Comment on above: IG% - Immature Granu locytes (promyelocytes, myelocytes and metamyelocytes) > 1% indicates that a LEFT SHIFT is Present. MCH (RBC) [Entitic mass] 28.9 pg 25.0-35.0 [facility] Work Phone: [phone] Nucleated RBC/100 WBC (Bld) [Ratio] 0 % 0-5 [facility] Work Phone: [phone] MCHC Auto (RBC) [Mass/Vol]on 10-12-2021 MCHC (RBC) [Mass/Vol] 34.4 g/dL 32-36 [facility] Work Phone: [phone] Panel Informationon 10-12 Urine Barbiturates Screen Negative [facility] Work Phone: [phone] Urine Drug Screen Comment [facility] Work Phone: [phone] Comment on above: CONFIRMATORY TESTING FOR ALL [...] USE TESTMNEMONIC: [facility] Urine Methadone Screen Negative [facility] Work Phone: [phone] Urine Methamphetamine-MDMA Screen Positive [facility] Work Phone: [phone] Estimated Creatinine Clearance Calc 161.50 ml/min [facility] Work Phone: [phone] Estimated GFR (MDRD) [facility] Work Phone: [phone] Comment on above: Test not performedAf rican [place]alan GFR Calc Estimated GFR (MDRD) Non-Af [facility] Work Phone: Comment on above: Test not performedNo n- GFR Calc Ethyl Alcohol Level < 3.0 mg/dL [facility] Work Phone: Comment on above: The serum:whole bloo d ethanol ratio is approximately 1.14and varies slightly with hematocrit. Medical Alcohol reference interval and critical value innon-tolerant individuals; 50 - 100 Impairment 100 Intoxication 100 - 250 Severe Poisoning 250 - 400 Deep/possible fatal coma SARS-CoV-2 Antigen (Rapid) [facility] Work Phone: [phone] Platelets bldon 10-12-2021 Platelets (Bld) [#/Vol] 329 10*3/uL 150-450 [facility] Work Phone: [phone] Serum or plasma albumin rhona urement (mass/volume)on 10-12-2021 Albumin [Mass/Vol] 4.3 g/dL 3.2-5.0 [facility] Work Phone: [phone] Serum or plasma albumin/glob ulin mass ratioon 10-12-2021 Albumin/Globulin [Mass ratio] 1.2 {ratio} 0.9-2.4 [facility] Work Phone: [phone] Serum or plasma calcium rhona urement (mass/volume)on 10-12-2021 Calcium [Mass/Vol] 9.4 mg/dL 8.5-10.1 [facility] Work Phone: [phone] Serum or plasma creatinine m easurement (mass/volume)on 10-12-2021 Creatinine [Mass/Vol] 0.76 mg/dL 0.50-0.80 [facility] Work Phone: [phone] Serum or plasma urea nitroge n measurement (mass/volume)on 10-12-2021 Urea nitrogen [Mass/Vol] 15 mg/dL 7-18 [facility] Work Phone: [phone] Thin prep Papanicolaou smear with manual screeningon 10-12-2021 Thin prep Papanicolaou smear with manual screening 24 U/L 15-37 [facility] Work Phone: [phone] Thin prep Papanicolaou smear with manual screening 8 5-15 [facility] Work Phone: Urine phencyclidine (PCP) de tectionon 10-12-2021 Phencyclidine Ql (U) Negative [facility] Work Phone: Absolute lymphocyte counton 09-08-2021 Lymphocytes Auto (Unsp spec) [#/Vol] 2.28 10*3/uL 0.83-4.51 [facility] Work Phone: Basophil percentageon 2021 Basophils/100 WBC (Bld) 0.5 % 0-1 [facility] Work Phone: Chloride [Moles/Vol] 105 mmol/L 98-107 [facility] Work Phone: Eosinophils/100 WBC (Bld) 0.6 % 0-3 [facility] Work Phone: Glucose [Mass/Vol] 103 mg/dL 74-106 [facility] Work Phone: Comment on above: Fasting Glucose resu lt from 100 to 125 mg/dL suggests IMPAIRED HOMEOSTASIS per A.D.A. criteria.Please note revised GLUCOSE reference range effective 2017. Neutrophils (Bld) [#/Vol] 5.5 10*3/uL 2.0-7.7 [facility] Work Phone: Neutrophils/100 WBC (Bld) 64.6 % 34-64 [facility] Work Phone: Potassium [Moles/Vol] 4.0 mmol/L 3.5-5.1 [facility] Work Phone: Sodium [Moles/Vol] 140 mmol/L 136-145 [facility] Work Phone: WBC (Bld) [#/Vol] 8.5 10*3/uL 4.5-13.0 [facility] Work Phone: Blood erythrocytes count (nu mber/volume)on 09-08-2021 RBC (Bld) [#/Vol] 5.43 10*6/uL 4.5-5.1 [facility] Work Phone: [phone] Blood hemoglobin measurement (mass/volume)on 09-08-2021 Hemoglobin (Bld) [Mass/Vol] 15.6 g/dL 13.0-16.5 [facility] Work Phone: Blood lymphocytes/100 leukoc yteson 09-08-2021 Lymphocytes/100 WBC (Bld) 26.9 % 25-45 [facility] Work Phone: [phone] Blood monocytes/100 leukocyt eson 09-08-2021 Monocytes/100 WBC (Bld) 6.8 % 3-6 [facility] Work Phone: [phone] Blood platelet mean volumeon 09-08-2021 Platelet mean volume (Bld) [Entitic vol] 9.9 fL 6.2-12.0 [facility] Work Phone: [phone] Determination of erythrocyte mean corpuscular volume (MCV)on 09-08-2021 MCV (RBC) [Entitic vol] 83.8 fL 78-96 [facility] Work Phone: [phone] Hematocrit Auto (Bld) [Volum e fraction]on 09-08-2021 Hematocrit (Bld) [Volume fraction] 45.5 % 36-47 [facility] Work Phone: Laboratory - Chemistry and C hemistry - challengeon 09-08-2021 CO2 [Moles/Vol] 27.0 mmol/L 21.0-32.0 [facility] Work Phone: [phone] Urea nitrogen/Creatinine [Mass ratio] 23.0 mg/mg 10-20 [facility] Work Phone: [phone] Laboratory - Drug toxicology on 09-08-2021 Amphetamines Ql (U) Positive [facility] Work Phone: Benzodiazepines Ql (U) Negative [facility] Work Phone: [phone] Cannabinoids Screen Ql (U) Negative [facility] Work Phone: [phone] Cocaine Ql (U) Negative [facility] Work Phone: [phone] Opiates Ql (U) Negative [facility] Work Phone: [phone] Laboratory - Hematology and Cell countson 09-08-2021 Erythrocyte distribution width (RBC) [Entitic vol] 38.5 fL 35.1-43.9 [facility] Work Phone: [phone] Erythrocyte distribution width (RBC) [Ratio] 12.7 % 11.6-14.6 [facility] Work Phone: [phone] Immature granulocytes/100 WBC (Bld) 0.600 % 0.0-0.9 [facility] Work Phone: [phone] Comment on above: IG% - Immature Granu locytes (promyelocytes, myelocytes and metamyelocytes) > 1% indicates that a LEFT SHIFT is Present. MCH (RBC) [Entitic mass] 28.7 pg 25.0-35.0 [facility] Work Phone: [phone] Nucleated RBC/100 WBC (Bld) [Ratio] 0 % 0-5 [facility] Work Phone: [phone] MCHC Auto (RBC) [Mass/Vol]on 09-08-2021 MCHC (RBC) [Mass/Vol] 34.3 g/dL 32-36 [facility] Work Phone: [phone] Panel Informationon 09-08 Estimated Creatinine Clearance Calc 175.35 ml/min [facility] Work Phone: [phone] Estimated GFR (MDRD) [facility] Work Phone: [phone] Comment on above: Test not performedAf rican [place]alan GFR Calc Estimated GFR (MDRD) Non-Af [facility] Work Phone: [phone] Comment on above: Test not performedNo n- GFR Calc Ethyl Alcohol Level < 3.0 mg/dL [facility] Work Phone: [phone] Comment on above: The serum:whole bloo d ethanol ratio is approximately 1.14and varies slightly with hematocrit. Medical Alcohol reference interval and critical value innon-tolerant individuals; 50 - 100 Impairment 100 Intoxication 100 - 250 Severe Poisoning 250 - 400 Deep/possible fatal coma Urine Barbiturates Screen Negative [facility] Work Phone: [phone] Urine Drug Screen Comment [facility] Work Phone: Comment on above: CONFIRMATORY [...] USE TESTMNEMONIC: [facility] Urine Methadone Screen Negative [facility] Work Phone: Urine Methamphetamine-MDMA Screen Negative [facility] Work Phone: [phone] Platelets bldon 09-08-2021 Platelets (Bld) [#/Vol] 318 10*3/uL 150-450 [facility] Work Phone: [phone] Serum or plasma calcium rhona urement (mass/volume)on 09-08-2021 Calcium [Mass/Vol] 9.6 mg/dL 8.5-10.1 [facility] Work Phone: [phone] Serum or plasma creatinine m easurement (mass/volume)on 09-08-2021 Creatinine [Mass/Vol] 0.70 mg/dL 0.50-0.80 [facility] Work Phone: [phone] Serum or plasma urea nitroge n measurement (mass/volume)on 09-08-2021 Urea nitrogen [Mass/Vol] 16 mg/dL 7-18 [facility] Work Phone: [phone] Thin prep Papanicolaou smear with manual screeningon 09-08-2021 Thin prep Papanicolaou smear with manual screening 8 5-15 [facility] Work Phone: [phone] Urine phencyclidine (PCP) de tectionon 09-08-2021 Phencyclidine Ql (U) Negative [facility] Work Phone: [phone] Vital Signs Date Time Vital Sign Value Performing Clinician Facility 05-09-2025 13:39-0400 Body height 180.[address] Sallie Solorzano MD Work Phone: [phone] [place] [address] 05-09-2025 13:39-0400 Body temperature 98 [degF] Dr. Sallie Solorzano MD Work Phone: [phone] [place] [address] 05-09-2025 13:39-0400 Diastolic blood pressure 94 mm[Hg] Dr. Sallie Solorzano MD Work Phone: [phone] [place] [address] 05-09-2025 13:39-0400 Heart rate 106 /min Dr. Sallie Solorzano MD Work Phone: [phone] [place] [address] 05-09-2025 13:39-0400 Respiratory rate 16 /min Dr. Sallie Solorzano MD Work Phone: [phone] [place] [address] 05-09-2025 13:39-0400 SaO2% (BldA) [Mass fraction] 97 % Dr. Sallie Solorzano MD Work Phone: [phone] [place] [address] 05-09-2025 13:39-0400 Systolic blood pressure 150 mm[Hg] Dr. Sallie Solorzano MD Work Phone: [phone] [address] 03-17-2025 03:29-0400 Body temperature 98.3 [degF] Dr. Sallie Solorzano MD Work Phone: [phone] [place] [address] 03-17-2025 03:29-0400 Diastolic blood pressure 87 mm[Hg] Dr. Sallie Solorzano MD Work Phone: [phone] [place] [address] 03-17-2025 03:29-0400 Heart rate 99 /min Dr. Sallie Solorzano MD Work Phone: [phone] [place] [address] 03-17-2025 03:29-0400 Respiratory rate 18 /min Dr. Sallie Solorzano MD Work Phone: [phone] [place] [address] 03-17-2025 03:29-0400 SaO2% (BldA) [Mass fraction] 97 % Dr. Sallie Solorzano MD Work Phone: [phone] [place] [address] 03-17-2025 03:29-0400 Systolic blood pressure 141 mm[Hg] Dr. Sallie Solorzano MD Work Phone: [phone] [place] [address] 03-17-2025 02:16-0400 Body height 180.[address] Sallie Solorzano MD Work Phone: [phone] [place] [address] 03-17-2025 02:16-0400 Body mass index (BMI) [Percentile] Per age and sex 10 % Dr. Sallie Solorzano MD Work Phone: [phone] [place] [address] 03-17-2025 02:16-0400 Body mass index (BMI) [Ratio] 19.5 kg/m2 Dr. Sallie Solorzano MD Work Phone: [phone] [place] [address] 03-17-2025 02:16-0400 Body weight 63.[address] Sallie Solorzano MD Work Phone: [phone] [place] [address] 01-02-2025 21:52-0400 Body temperature 98.2 [degF] Dr. Sallie Solorzano MD Work Phone: [phone] [place] [address] 01-02-2025 21:52-0400 Diastolic blood pressure 93 mm[Hg] Dr. Sallie Solorzano MD Work Phone: [phone] [place] [address] 01-02-2025 21:52-0400 Heart rate 86 /min Dr. Sallie Solorzano MD Work Phone: [phone] [place] [address] 01-02-2025 21:52-0400 Respiratory rate 18 /min Dr. Sallie Solorzano MD Work Phone: [phone] [place] [address] 01-02-2025 21:52-0400 SaO2% (BldA) [Mass fraction] 99 % Dr. Sallie Solorzano MD Work Phone: [phone] [place] [address] 01-02-2025 21:52-0400 Systolic blood pressure 160 mm[Hg] Dr. Sallie Solorzano MD Work Phone: [phone] [place] [address] 01-02-2025 17:30-0400 Body mass index (BMI) [Percentile] Per age and sex 99.8 % Dr. Sallie Solorzano MD Work Phone: [phone](668)854-993298 [place] [address] 01-02-2025 17:30-0400 Body mass index (BMI) [Ratio] 43.3 kg/m2 Dr. Sallie Solorzano MD Work Phone: [facility] 01-02-2025 17:30-0400 Body weight 140.[address] Sallie Solorzano MD Work Phone: [facility] 04-13-2024 14:03-0400 Body temperature 98.1 [degF] Krislyn Aberegg PA Work Phone: [facility] 04-13-2024 14:03-0400 Body weight 124.6 kg Krislyn Aberegg PA Work Phone: [facility] 04-13-2024 14:03-0400 Diastolic blood pressure 84 mm[Hg] Krislyn Aberegg PA Work Phone: [facility] 04-13-2024 14:03-0400 Heart rate 65 /min Krislyn Aberegg PA Work Phone: [facility] 04-13-2024 14:03-0400 Respiratory rate 16 /min Krislyn Aberegg PA Work Phone: [facility] 04-13-2024 14:03-0400 SaO2% (BldA) [Mass fraction] 98 % Krislyn Aberegg PA Work Phone: [facility] 04-13-2024 14:03-0400 Systolic blood pressure 132 mm[Hg] Krislyn Aberegg PA Work Phone: [facility] 12-27-2022 18:00-0400 Diastolic blood pressure 78 mm[Hg] [facility] 12-27-2022 18:00-0400 Heart rate 98 /min [facility] 12-27-2022 18:00-0400 Respiratory rate 16 /min [facility] 12-27-2022 18:00-0400 SaO2% (BldA) [Mass fraction] 100 % [facility] 12-27-2022 18:00-0400 Systolic blood pressure 134 mm[Hg] [facility] 12-26-2022 23:57-0400 Body temperature 97.8 [degF] [facility] 12-26-2022 15:32-0400 Body height 180.34 cm [facility] 12-26-2022 15:32-0400 Body mass index (BMI) [Percentile] Per age and sex 99.8 % [facility] 12-26-2022 15:32-0400 Body mass index (BMI) [Ratio] 42.1 kg/m2 [facility] 12-26-2022 15:32-0400 Body weight 137.07 kg [facility] 12-24-2022 16:00-0400 Diastolic blood pressure 90 mm[Hg] [facility] 12-24-2022 16:00-0400 Heart rate 90 /min [facility] 12-24-2022 16:00-0400 Respiratory rate 16 /min [facility] 12-24-2022 16:00-0400 SaO2% (BldA) [Mass fraction] 98 % [facility] 12-24-2022 16:00-0400 Systolic blood pressure 140 mm[Hg] [facility] 12-24-2022 14:15-0400 Body mass index (BMI) [Percentile] Per age and sex 99.8 % [facility] 12-24-2022 14:15-0400 Body mass index (BMI) [Ratio] 42.5 kg/m2 [facility] 12-24-2022 14:15-0400 Body temperature 97.6 [degF] [facility] 12-24-2022 14:15-0400 Body weight 138.34 kg [facility] 08-06-2022 15:41-0500 Body temperature 98.2 [degF] Ashley Ruiz MD Work Phone: [facility] 08-06-2022 15:41-0500 Body weight 134.4 kg Ashley Ruiz MD Work Phone: [facility] 08-06-2022 15:41-0500 Diastolic blood pressure 79 mm[Hg] Ashley Ruiz MD Work Phone: [facility] 08-06-2022 15:41-0500 Heart rate 91 /min Ashley Ruiz MD Work Phone: [facility] 08-06-2022 15:41-0500 Respiratory rate 20 /min Ashley Ruiz MD Work Phone: [facility] 08-06-2022 15:41-0500 SaO2% (BldA) [Mass fraction] 99 % Ashley Ruiz MD Work Phone: [facility] 08-06-2022 15:41-0500 Systolic blood pressure 134 mm[Hg] Ashley Ruiz MD Work Phone: [facility] 06-28-2022 12:43-0400 Diastolic blood pressure 78 mm[Hg] [facility] Work Phone: 06-28-2022 12:43-0400 Heart rate 66 /min [facility] Work Phone: 06-28-2022 12:43-0400 Respiratory rate 18 /min [facility] Work Phone: 06-28-2022 12:43-0400 SaO2% (BldA) [Mass fraction] 99 % [facility] Work Phone: 06-28-2022 12:43-0400 Systolic blood pressure 115 mm[Hg] [facility] Work Phone: 06-28-2022 09:44-0400 Body height 180.34 cm [facility] Work Phone: 06-28-2022 09:44-0400 Body mass index (BMI) [Percentile] Per age and sex 99.7 % [facility] Work Phone: 06-28-2022 09:44-0400 Body mass index (BMI) [Ratio] 40.8 kg/m2 [facility] Work Phone: 06-28-2022 09:44-0400 Body temperature 98.2 [degF] [facility] Work Phone: 06-28-2022 09:44-0400 Body weight 133 kg [facility] Work Phone: 06-23-2022 09:04-0400 Diastolic blood pressure 99 mm[Hg] [facility] Work Phone: 06-23-2022 09:04-0400 Heart rate 87 /min [facility] Work Phone: 06-23-2022 09:04-0400 Respiratory rate 16 /min [facility] Work Phone: 06-23-2022 09:04-0400 SaO2% (BldA) [Mass fraction] 96 % [facility] Work Phone: 06-23-2022 09:04-0400 Systolic blood pressure 143 mm[Hg] [facility] Work Phone: 06-23-2022 06:00-0400 Body temperature 98.1 [degF] [facility] Work Phone: 06-21-2022 13:06-0400 Body height 177.8 cm [facility] Work Phone: 06-21-2022 13:06-0400 Body mass index (BMI) [Percentile] Per age and sex 99.8 % [facility] Work Phone: 06-21-2022 13:06-0400 Body mass index (BMI) [Ratio] 42 kg/m2 [facility] Work Phone: 06-21-2022 13:06-0400 Body weight 133 kg [facility] Work Phone: 06-14-2022 03:41-0400 Body temperature 97 [degF] Chapis Son DO Work Phone: [facility] 06-14-2022 03:41-0400 Diastolic blood pressure 89 mm[Hg] Chapis Son DO Work Phone: [facility] 06-14-2022 03:41-0400 Heart rate 66 /min Chapis Son DO Work Phone: [facility] 06-14-2022 03:41-0400 Respiratory rate 18 /min Chapis Son DO Work Phone: [facility] 06-14-2022 03:41-0400 SaO2% (BldA) [Mass fraction] 97 % Chapis Mari DO Work Phone: [facility] 06-14-2022 03:41-0400 Systolic blood pressure 145 mm[Hg] Chapis Son DO Work Phone: [facility] 06-13-2022 16:01-0400 Body weight 132 kg Chapis Mari DO Work Phone: [facility] 01-08-2022 19:15-0400 Body temperature 98.2 [degF] [facility] Work Phone: 01-08-2022 19:15-0400 Diastolic blood pressure 72 mm[Hg] [facility] Work Phone: 01-08-2022 19:15-0400 Heart rate 63 /min [facility] Work Phone: 01-08-2022 19:15-0400 Respiratory rate 16 /min [facility] Work Phone: 01-08-2022 19:15-0400 SaO2% (BldA) [Mass fraction] 98 % [facility] Work Phone: 01-08-2022 19:15-0400 Systolic blood pressure 132 mm[Hg] [facility] Work Phone: 01-08-2022 15:08-0400 Body height 177.8 cm [facility] Work Phone: 01-08-2022 15:08-0400 Body mass index (BMI) [Ratio] 40.1 kg/m2 [facility] Work Phone: 01-08-2022 15:08-0400 Body weight 127 kg [facility] Work Phone: 12-03-2021 21:50-0400 Body height 175.26 cm [facility] Work Phone: 12-03-2021 21:50-0400 Body mass index (BMI) [Ratio] 39.9 kg/m2 [facility] Work Phone: 12-03-2021 21:50-0400 Body temperature 97.4 [degF] [facility] Work Phone: 12-03-2021 21:50-0400 Body weight 122.46 kg [facility] Work Phone: 12-03-2021 21:50-0400 Diastolic blood pressure 81 mm[Hg] [facility] Work Phone: 12-03-2021 21:50-0400 Heart rate 89 /min [facility] Work Phone: 12-03-2021 21:50-0400 Respiratory rate 18 /min [facility] Work Phone: 12-03-2021 21:50-0400 SaO2% (BldA) [Mass fraction] 97 % [facility] Work Phone: 12-03-2021 21:50-0400 Systolic blood pressure 137 mm[Hg] [facility] Work Phone: 11-26-2021 00:08-0400 Diastolic blood pressure 82 mm[Hg] [facility] Work Phone: 11-26-2021 00:08-0400 Heart rate 76 /min [facility] Work Phone: 11-26-2021 00:08-0400 Respiratory rate 16 /min [facility] Work Phone: 11-26-2021 00:08-0400 SaO2% (BldA) [Mass fraction] 97 % [facility] Work Phone: 11-26-2021 00:08-0400 Systolic blood pressure 141 mm[Hg] [facility] Work Phone: 11-25-2021 19:41-0400 Body mass index (BMI) [Ratio] 40.7 kg/m2 [facility] Work Phone: 11-25-2021 19:41-0400 Body temperature 98.6 [degF] [facility] Work Phone: 11-25-2021 19:41-0400 Body weight 125.19 kg [facility] Work Phone: 10-25-2021 13:08-0500 Body temperature 98.1 [degF] [facility] Work Phone: 10-25-2021 13:08-0500 Diastolic blood pressure 86 mm[Hg] [facility] Work Phone: 10-25-2021 13:08-0500 Heart rate 94 /min [facility] Work Phone: 10-25-2021 13:08-0500 Respiratory rate 18 /min [facility] Work Phone: 10-25-2021 13:08-0500 SaO2% (BldA) [Mass fraction] 95 % [facility] Work Phone: 10-25-2021 13:08-0500 Systolic blood pressure 124 mm[Hg] [facility] Work Phone: 10-24-2021 16:34-0500 Body mass index (BMI) [Ratio] 39 kg/m2 [facility] Work Phone: 10-24-2021 16:34-0500 Body weight 120 kg [facility] Work Phone: 10-15-2021 18:22-0500 Diastolic blood pressure 82 mm[Hg] [facility] Work Phone: 10-15-2021 18:22-0500 Heart rate 88 /min [facility] Work Phone: 10-15-2021 18:22-0500 Respiratory rate 16 /min [facility] Work Phone: 10-15-2021 18:22-0500 SaO2% (BldA) [Mass fraction] 98 % [facility] Work Phone: 10-15-2021 18:22-0500 Systolic blood pressure 136 mm[Hg] [facility] Work Phone: 10-15-2021 05:17-0500 Body temperature 97.7 [degF] [facility] Work Phone: 10-12-2021 20:52-0500 Body mass index (BMI) [Ratio] 39 kg/m2 [facility] Work Phone: 10-12-2021 20:52-0500 Body weight 120 kg [facility] Work Phone: 09-11-2021 20:40-0500 Body temperature 97.16 [degF] DR CLAUDIA BURNHAM DO [facility] 09-11-2021 20:40-0500 Diastolic blood pressure 85 mm[Hg] DR CLAUDIA BURNHAM DO [facility] 09-11-2021 20:40-0500 Heart rate 80 /min DR CLAUDIA BURNHAM DO [facility] 09-11-2021 20:40-0500 Respiratory rate 18 /min DR CLAUDIA BURNHAM DO [facility] 09-11-2021 20:40-0500 Systolic blood pressure 132 mm[Hg] DR CLAUDIA BURNHAM DO [facility] 09-08-2021 02:30-0500 Diastolic blood pressure 78 mm[Hg] [facility] Work Phone: 09-08-2021 02:30-0500 Heart rate 80 /min [facility] Work Phone: 09-08-2021 02:30-0500 Respiratory rate 16 /min [facility] Work Phone: 09-08-2021 02:30-0500 Systolic blood pressure 136 mm[Hg] [facility] Work Phone: 09-07-2021 22:59-0500 Body mass index (BMI) [Ratio] 37.3 kg/m2 [facility] Work Phone: 09-07-2021 22:59-0500 Body temperature 97.6 [degF] [facility] Work Phone: 09-07-2021 22:59-0500 Body weight 114.75 kg [facility] Work Phone: 09-07-2021 22:59-0500 SaO2% (BldA) [Mass fraction] 100 % [facility] Work Phone: Encounters Encounter Date Encounter Type Care Provider Facility Start: 05-09-2025 End: 05-09-2025 Emergency department patient visit Dr. Sallie Solorzano MD Work Phone: -Emergency Department Work Phone: Start: 03-17-2025 End: 03-17-2025 Emergency department patient visit Dr. Sallie Solorzano MD Work Phone: -Emergency Department Work Phone: Start: 01-02-2025 End: 01-02-2025 Emergency department patient visit Dr. Marek Booker DO -Emergency Department Work Phone: Start: 08-20-2024 End: 08-20-2024 ambulatory SALLIE SOLORZANO [facility] Start: 08-14-2024 End: 08-14-2024 ambulatory [facility] Start: 04-25-2024 End: 04-25-2024 ambulatory [facility] Start: 04-13-2024 End: 04-13-2024 ambulatory SALLIE SOLORZANO Facility:[facility] Start: 04-13-2024 End: 04-13-2024 Patient encounter procedure Christ[facility]ELSON [facility] Comment on above: Skin infection (Prim dominique Dx) Start: 02-12-2024 End: 02-12-2024 ambulatory FABBY [facility] Start: 12-27-2023 End: 12-27-2023 ambulatory SALLIE R [facility] Start: 11-29-2023 End: 11-29-2023 ambulatory SALLIE R [facility] Start: 10-31-2023 End: 10-31-2023 ambulatory SALLIE R [facility] Start: 10-22-2023 End: 10-22-2023 ambulatory FABBY [facility] Start: 10-08-2023 End: 10-08-2023 ambulatory FABBY [facility] Start: 09-20-2023 End: 09-20-2023 ambulatory SELF REFERRED [facility] Start: 08-15-2023 End: 08-16-2023 ambulatory FABBY [facility] Facility:[facility] Start: 06-20-2023 End: 10-18-2023 ambulatory BRITTANY MAR APRN Facility:[facility] Start: 05-30-2023 End: 05-31-2023 ambulatory SALLIE~[id number] RASHAD RIZO Facility:[facility] Start: 03-22-2023 End: 03-23-2023 ambulatory FABBY [facility] Facility:[facility] Start: 01-24-2023 End: 01-24-2023 Subsequent hospital visit by physician Arleen [facility] Work Phone: Radiology Comment on above: Acute cough [R05.1] Start: 12-26-2022 End: 12-27-2022 Emergency department patient visit [facility] Start: 12-24-2022 End: 12-24-2022 Emergency department patient visit [facility] Start: 08-06-2022 End: 08-06-2022 Emergency department patient visit Ashley Ruiz MD Work Phone: [facility] Start: 06-28-2022 End: 06-28-2022 [facility] Start: 06-23-2022 End: 06-26-2022 Evaluation and management of inpatient REFERRED SELF [facility] Start: 06-21-2022 End: 06-23-2022 Emergency department patient visit [facility] Start: 06-13-2022 End: 06-14-2022 Emergency department patient visit Chapis Mari DO Work Phone: [facility] Start: 01-08-2022 End: 01-08-2022 [facility] Start: 12-03-2021 End: 12-04-2021 [facility] Start: 11-26-2021 End: 12-03-2021 [facility] Start: 11-25-2021 End: 11-26-2021 Emergency department patient visit [facility] Start: 10-24-2021 End: 10-25-2021 Emergency department patient visit [facility] Start: 10-12-2021 End: 10-15-2021 Emergency department patient visit [facility] Start: 09-11-2021 End: 09-11-2021 Emergency department patient visit DR CLAUDIA BURNHAM DO [facility] Start: 09-07-2021 End: 09-08-2021 [facility] Procedures Date Procedure Procedure Detail Performing Clinician Start: 01-02-[address] Sallie Solorzano MD Work Phone: Start: 01-02-2025 Methadone measuremen t, urine Dr. Sallie Solorzano MD Work Phone: Start: 01-24-2023 Radiologic exam ches t 2 views Evan Oneill APRN.LEADER TIER Work Phone: Start: 08-06-2022 DRUGS OF ABUSE [...] Pertussis Vaccines (7 - Td or Tdap) [facility] Start: 05-16-2027 Urine microalbumin profile DTaP,Tdap,Td Vaccine (7 - Td or Tdap) [facility] Start: 05-09-2025 Plain x-ray of hand Hand Min 3 Views [facility] Start: 03-17-2025 Smpl repair scalp/neck/ax/genit/trun k 2.6-7.5cm RPR S/N/AX/GEN/TRNK2.6-7.5CM [facility] Start: 03-17-2025 [facility] Start: 01-02-2025 [facility] Start: 01-02-2025 [facility] Start: 05-04-2024 Covid-19 Vaccine () Covid-19 Vaccine () [facility] Start: 05-04-2024 Influenza vaccination Influenza Vaccine (#1) [facility] Start: 12-22-2023 Anxiety Screening Anxiety Screening [facility] Start: 12-22-2023 Depression Screening Depression Screening [facility] Start: 12-22-2023 Hepatitis C screening Hepatitis C Screening [facility] Start: 12-22-2023 HIV screening HIV Screening [facility] Start: 11-26-2023 Meningococcal B Vaccine: Consider Based On Risk (2 of 2 - Risk Bexsero 2-dose series) Meningococcal B Vaccine: Consider Based On Risk (2 of 2 - Risk Bexsero 2-dose series) [facility] Start: 05-04-2023 Covid-19 Vaccine () Covid-19 Vaccine () [facility] Start: 12-26-2022 Lamotrigine measurement [facility] Start: 12-26-2022 Referral to service [facility] Start: 12-26-2022 End: 12-26-2022 Suicide precautions [facility] Start: 06-28-2022 Suicide precautions [facility] Work Phone: Start: 06-21-2022 Referral to service [facility] Work Phone: Start: 06-21-2022 End: 06-21-2022 Suicide precautions [facility] Work Phone: Start: 06-16-2022 End: 06-16-2022 ambulatory 06/16/2022 Telehealth Psychiatry Fabby Mason, IT BUSINESS PROCESS ARCHITECT-LEADER TIER [address] [facility] [address] [place] [address] Psych Out[facility] [place] Start: 05-04-2022 FLU (#1) FLU (#1) [facility] Start: 12-31-2021 Well Visit Well Visit [facility] Start: 2021 MenACWY (2 - 2-dose series) MenACWY (2 - 2-dose series) [facility] Start: 2021 MenB (1 of 2 - MenB 2-Dose Series) MenB (1 of 2 - MenB 2-Dose Series) [facility] Start: 10-21-2021 AIMS 6 Month Check AIMS 6 Month Check [facility] Start: 08-17-2021 COVID-19 (3 - Booster for Pfizer series) COVID-19 (3 - Booster for Pfizer series) [facility] Start: 2020 Vision Screening Vision Screening [facility] Start: 12-22-2019 Peds To Adult Transition Annual Assessment Peds To Adult Transition Annual Assessment [facility] Start: 2017 Peds To Adult Transition Initial Discussion Peds To Adult Transition Initial Discussion [facility] Patient Education [facility] Work Phone: Patient referral [facility] Work Phone: Immunizations Immunization Date Immunization Notes Care Provider Fa [facility] 10-29-2023 influenza virus vacc ine, unspecified formulation Christos NELSON Work Phone: [facility] 08-06-2022 influenza, injectabl e, quadrivalent, preservative free Ashley Ruiz MD Work Phone: [facility] 06-22-2021 PFIZER (purple cap) COVID-19, mRNA, LNP-S, 30mcg/0.3mL dose Chapis Son DO Work Phone: [facility] 05-30-2021 influenza, injectabl e, quadrivalent, preservative free Chapis Son DO Work Phone: [facility] 05-30-2021 PFIZER (purple cap) COVID-19, mRNA, LNP-S, 30mcg/0.3mL dose Chapis Son DO Work Phone: [facility] 07-16-2019 hepatitis B vaccine, pediatric or pediatric/adolescent dosage Chapis Son DO Work Phone: [facility] 12-25-2018 Human Papillomavirus 9-valent vaccine Chapis Son DO Work Phone: [facility] 05-22-2018 Human Papillomavirus 9-valent vaccine Chapis Son DO Work Phone: [facility] 05-16-2017 meningococcal polysaccharide (groups A, C, Y and W-135) diphtheria toxoid conjugate vaccine (MCV4P) Chapis Son DO Work Phone: [facility] 05-16-2017 tetanus toxoid, redu luz maria diphtheria toxoid, and acellular pertussis vaccine, adsorbed Chapis Son DO Work Phone: [facility] 09-22-2015 influenza, live, intranasal, quadrivalent Chapis Son DO Work Phone: [facility] 06-17-2012 influenza virus vacc ine, live, attenuated, for intranasal use Chapis Son DO Work Phone: [facility] 05-15-2012 influenza virus vacc ine, live, attenuated, for intranasal use Chapis Son DO Work Phone: [facility] 12-26-2010 diphtheria, tetanus toxoids and acellular pertussis vaccine Chapis Son DO Work Phone: [facility] 12-26-2010 measles, mumps, rube lla, and varicella virus vaccine Chapis Son DO Work Phone: [facility] 12-26-2010 poliovirus vaccine, inactivated Chapis Son DO Work Phone: [facility] 09-30-2009 hepatitis A vaccine, pediatric/adolescent dosage, 2 dose schedule Chapis Son DO Work Phone: [facility] 09-30-2009 pneumococcal conjuga te vaccine, 7 valent Chapis Son DO Work Phone: [facility] 07-23-2007 diphtheria, tetanus toxoids and acellular pertussis vaccine Chapis Son DO Work Phone: [facility] 07-23-2007 haemophilus influenz ae type b vaccine, HbOC conjugate Christos NELSON Work Phone: [facility] 07-23-2007 haemophilus influenz ae type b vaccine, PRP-T conjugate Chapis Son DO Work Phone: [facility] 04-01-2007 hepatitis A vaccine, pediatric/adolescent dosage, 2 dose schedule Chapis Son DO Work Phone: [facility] 04-01-2007 hepatitis A vaccine, unspecified formulation Chapis Son DO Work Phone: [facility] 12-31-2006 diphtheria, tetanus toxoids and acellular pertussis vaccine Chapis Son DO Work Phone: [facility] 12-31-2006 DTaP-hepatitis B and poliovirus vaccine Chapis Son DO Work Phone: [facility] 12-31-2006 haemophilus influenz ae type b vaccine, HbOC conjugate Christos Orozco PA Work Phone: [facility] 12-31-2006 haemophilus influenz ae type b vaccine, PRP-T conjugate Chapis Son DO Work Phone: [facility] 12-31-2006 hepatitis B vaccine, pediatric or pediatric/adolescent dosage Chapis Son DO Work Phone: [facility] 12-31-2006 measles, mumps and rubella virus vaccine Chapis Son DO Work Phone: [facility] 12-31-2006 measles, mumps, rube lla, and varicella virus vaccine Chapis Son DO Work Phone: [facility] 12-31-2006 pneumococcal conjuga te vaccine, 7 valent Chapis Son DO Work Phone: [facility] 12-31-2006 poliovirus vaccine, inactivated Chapis Son DO Work Phone: [facility] 12-31-2006 varicella virus vaccine Esth er Son DO Work Phone: [facility] 11-22-2006 diphtheria, tetanus toxoids and acellular pertussis vaccine Chapis Son DO Work Phone: [facility] 11-22-2006 DTaP-hepatitis B and poliovirus vaccine Chapis Son DO Work Phone: [facility] 11-22-2006 haemophilus influenz ae type b vaccine, HbOC conjugate Krislyn Aberegg PA Work Phone: [facility] 11-22-2006 haemophilus influenz ae type b vaccine, PRP-T conjugate Chapis Son DO Work Phone: [facility] 11-22-2006 hepatitis B vaccine, pediatric or pediatric/adolescent dosage Chapis Son DO Work Phone: [facility] 11-22-2006 pneumococcal conjuga te vaccine, 7 valent Chapis Son DO Work Phone: [facility] 11-22-2006 poliovirus vaccine, inactivated Chapis Son DO Work Phone: [facility] 03-17-2006 diphtheria, tetanus toxoids and acellular pertussis vaccine Chapis Son DO Work Phone: [facility] 03-17-2006 DTaP-hepatitis B and poliovirus vaccine Chapis Son DO Work Phone: [facility] 03-17-2006 haemophilus influenz ae type b vaccine, HbOC conjugate Christos NELSON Work Phone: [facility] 03-17-2006 haemophilus influenz ae type b vaccine, PRP-T conjugate Chapis Son DO Work Phone: [facility] 03-17-2006 hepatitis B vaccine, pediatric or pediatric/adolescent dosage Chapis Son DO Work Phone: [facility] 03-17-2006 pneumococcal conjuga te vaccine, 7 valent Chapis Son DO Work Phone: [facility] 03-17-2006 poliovirus vaccine, inactivated Chapis Son DO Work Phone: [facility] Payers Date Payer Category Payer Self-pay [id number] 2022 Medicaid [employer] [place] [id number] 2022-Present [phone] [address] [place] [address] Medicaid [id number] 2022 Unknown [id number] 2019 Unknown [id number] 2005 Unknown [id number] 2005 Unknown [id number] 2005 Unknown [id number] 2005 Unknown [id number] 2005 Unknown [id number] 1982 Unknown [id number] [id number] 1982 Unknown [id number] [id number] 1982 Unknown [id number] [id number] 1982 Unknown [id number] [id number] 1982 Unknown [id number] [id number] 1982 Unknown [id number] [id number] 1978 Unknown [id number] [id number] 1978 Unknown [id number] [id number] 1978 Unknown [id number] [id number] 1959 Unknown [id number] Unknown [id number] Unknown [id number] Unknown [id number] Social History Date Type Detail Facility [facility] Start: 2005 Sex Assigned At Male [facility] Start: 12-03-2021 End: 12-26-2022 Tobacco smoking status WIIS Unknown if ever smoked [facility] Start: 09-03-2019 End: 08-06-2022 Tobacco smoking status WIIS Occasional tobacco smoker [facility] Start: 09-03-2019 History of tobacco use Tobacco Use Types Packs/Day Years Used Date Smoking Tobacco: Some Days Vaping Started: 2019 Smokeless Tobacco: Never [facility] Start: 06-13-2022 End: 04-13-2024 Tobacco use and exposure Smokeless tobacco non-user [facility] Start: 06-13-2022 End: 08-06-2022 Alcohol intake Ex-drinker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 this informatio n is protected by the Federal Confidentiality of Alcohol and Drug Abuse Patient Records regulations: The Federal rules restrict any use of the information to criminally investigate or prosecute any alcohol or drug abuse patient.[facility] the event this information is protected by the Federal Confidentiality of Alcohol and Drug Abuse Patient Records regulations: The Federal rules restrict any use of the information to criminally investigate or prosecute any alcohol or drug abuse patient.[facility] FOR RECORDS PERTAINING TO PATIENTS WHO ARE [...] BE BASED ON THE PRIMARY CLINICAL RECORDS. [facility] [facility]. provides no warranty or guarantee of the accuracy or completeness of information in this document.
--- NOTE | 2025-05-10 01:11 | RAD_ITS ---
PROCEDURE: HAND MIN 3 VIEWS 05/09/2025 REASON FOR EXAM: PAIN TECHNIQUE: Procedure Code: SHEILA Modality: DX Procedure: HAND MIN 3 VIEWS Laterality: Left COMPARISON: 12/04/2021 FINDINGS: Bones: No acute fractures or dislocations. Joints: Normal alignment. Joint spaces preserved. No arthropathic features. Soft tissues: Soft tissues are unremarkable. RAD/Hand Min 3 Views IMPRESSION: NEGATIVE HAND SERIES Reading [facility]
--- NOTE | 2025-05-10 02:12 | EX.ED.UPPERE ---
HPI History of Present Illness Chief Complaint: Upper Extremity Injury Informant: patient and friend Narrative Narrative: Patient is a 19-year-old male with past medical history of anxiety and depression as well as ADHD. He states that roughly 10 hours ago he was upset and secondary to his he punched a trash can. He states after striking the trash can he noticed pain and swelling in his left hand. He states that the symptoms have been persistent and slightly worsening throughout the day. Secondary to this he has concern for fracture and therefore comes in for evaluation Patient reports he is left-hand dominant. [facility] Medical History Oppositional defiant disorder High-functioning autism spectrum disorder ADHD Anxiety Depression Home Medications ?Medication ?Instructions ?Recorded ?Last Taken ?Type lurasidone 60 mg tablet (Latuda) 80 mg PO 1600 12/03/21 Unknown History methylphenidate HCl 40 mg biphasic 40 mg PO DAILY 12/26/22 Unknown History 30-70 capsule,extended release trazodone 50 mg tablet 50 mg PO QHS 03/17/25 Unknown History Allergy/AdvReac Type Severity Reaction Status Date / Time No Known Allergies Allergy Verified 05/10/25 00:54 Social History Smoking Status: Current every day smoker tobacco type: cigarettes substance use type: does not use ROS ROS ED Constitutional Constitutional ED: Denies chills or fever(s) Cardiovascular Cardiovascular: Denies chest pain Respiratory/Chest Respiratory/Chest: Denies cough or dyspnea Gastrointestinal Gastrointestinal: Denies abdominal pain, diarrhea, nausea or vomiting Musculoskeletal Musculoskeletal: Reports other Details: Positive left hand pain and swelling Integumentary Reports other Details: Positive bruising and swelling left hand Neurologic Neurologic: Denies headache(s) or paresthesias Psychiatric Psychiatric: Reports anxiety and depression Hematologic/Lymphatic Hematologic/Lymphatic: Denies easy bleeding or easy bruising EXAM Physical Exam Const Vital Signs: 05/10/25 00:54 Temperature 97.7 F L Temperature Source Oral Pulse Rate 58 L Respiratory Rate 18 Blood Pressure 134/77 H Blood Pressure Mean 96 Pulse Ox 97 Oxygen Delivery Method Room Air Positive well nourished, well developed and obese General Appearance ED: well developed Nutritional Appearance: obese HEENT HEENT Narrative: Normocephalic atraumatic Eyes PERRL and EOMs intact bilaterally Neck full ROM and supple Resp normal respiratory effort and clear to auscultation bilaterally Cardio regular rate and regular rhythm Extremity Extremity Narrative: Left upper extremity is neurovascularly intact; AIN/PIN are intact and normal Active range of motion is decreased secondary to pain Patient has soft tissue swelling to the dorsal and volar aspect of the left hand over top the 4th and 5th metacarpal region. There is bruising present along the volar aspect of the left hand over top of the fifth metacarpal. There is mild rotational deformity of the left fifth digit as well. No signs of ligamentous or tendon injury. No subungual hematoma. There is pain with palpation over the distal aspect of the left fifth metacarpal. Compartments are soft and compressible going against compartment syndrome Neuro oriented x3 and CN's II-XII intact bilaterally Sensorium / Orientation: alert Psych mental status grossly normal Skin no rashes or lesions noted Skin Narrative: Soft tissue swelling with ecchymosis to the left hand as documented above MDM MDM MDM Narrative Medical decision making narrative: Patient arrived to the ER complaining of direct trauma to the left hand after striking a trash can multiple hours ago. With swelling pain ecchymosis and rotational deformity there is high likelihood for fifth metacarpal fracture. Secondary to this an x-ray was obtained. X-ray showed a fracture to the distal aspect of the fifth metacarpal. There is no sign of dislocation. By physical exam he has no findings of ligamentous or tendon injury either. He is closed and neurovascularly intact therefore there is no need for emergent orthopedic consultation. The patient was placed in a ulnar gutter splint as documented below and out of the fracture has been stabilized he can follow with orthopedics as an outpatient to discuss casting. Patient had the left hand placed in a Ortho-Glass ulnar gutter splint. The splint fit the fracture with good approximation and stabilization. After application his capillary refill remained less than 3 seconds History & Record Review Discussion w/independent historian: Patient and Friend Radiography Diagnostic Testing: X-ray of the left hand as interpreted by the emergency medicine physician reveals a minimally displaced distal fifth metacarpal fracture Discharge Plan Triage Chief Complaint: Upper Extremity Injury ED Provider: Adebayo Tapia Dx/Rx/DC Orders Clinical Impression: Closed fracture of fifth metacarpal bone of left hand, ADHD, Anxiety and depression Instructions: ED Boxer Fracture, ED Fiberglass Splint Care Prescriptions: No Action lurasidone [Latuda] 60 mg Tablet 80 mg PO 1600 methylphenidate HCl 40 mg capsule, ER biphasic 30-70 40 mg PO DAILY Patient Comments: take 1 capsule by mouth every morning for 30 DAYS trazodone 50 mg tablet 50 mg PO QHS Primary Care Provider: Manuel Laureano Referrals: Guille Dejesus DO [Med Staff - Active Staff] - (Fifth metacarpal fracture) Manuel Laureano MD [Primary Care Provider] - Activity Restrictions/Additional Instructions: Please leave your splint on until you are reevaluated by orthopedics. Please follow-up with them to discuss need for transition to a cast based on your fracture. Return to the ER should you have any further concerns Print Language: Serbian Disposition Disposition: Home, Self Care Discharge Date/Time: 05/10/25 02:17
[2025-05-10 02:14] VITALS: PULSE 56; RESP 16; TEMP 36.6; O2SAT 100
== END 2025-05-10 02:17 | disposition home or self-care (01) ==
PROVIDERS: Emergency Provider Emergency Medicine; PCP Pediatrics; Visit Provider Emergency Medicine
DX: S62.317A Displaced fracture of base of fifth metacarpal bone, left hand, initial encounter for closed fracture (principal); W22.09XA Striking against other stationary object, initial encounter; F41.9 Anxiety disorder, unspecified; F32.A Depression, unspecified; F90.9 Attention-deficit hyperactivity disorder, unspecified type; Z79.899 Other long term (current) drug therapy
CPT/HCPCS: 29125; 73130; 99282

== ENCOUNTER 2025-07-18 14:57 | Emergency (ER) | payer BC, MEDICAID, SELFPAY ==
[2025-07-18 14:58] VITALS: BP 159/103; PULSE 70; RESP 18; TEMP 36.6; O2SAT 100
[2025-07-18 15:18] VITALS: BMI 37.5
--- NOTE | 2025-07-18 15:19 | EX.ED.VIS.UR ---
HPI HPI - URI History of Present Illness Chief Complaint: Cold Sx Informant: patient Onset/Context/Timing Onset: Days (3) Context: Gradual Onset Timing: Continuous Quality: Sharp Location: Left shoulder and chest Worsened by: - (Deep breathing) Relieved by: - (Sleeping) Associated Symptoms Associated Symptoms: Positive for Headache, Nausea, Diarrhea, Shortness of Breath, Chest Pain and Nonproductive cough; Negative for Nasal Congestion, Sinus Pressure, Myalgias, Vomiting, Hemoptysis or Productive Cough Narrative Narrative: Patient presents with cough and congestion that has been getting worse over the past 3 days. Patient states he is concerned that he has pneumonia. Patient admits to some pain in his left shoulder and left upper chest. Patient states it is worse with breathing. Patient states it is better with sleeping. Patient admits to headache. Patient also admits to some nausea and diarrhea. Patient denies any vomiting. Patient denies any sputum production. Patient states he feels short of breath. Patient denies any fevers or chills. ROS ROS ED Constitutional Constitutional ED: Denies chills or fever(s) Eyes Eyes: Denies blurry vision or change in vision ENT ENT ED: Denies rhinorrhea or sore throat Cardiovascular Cardiovascular: Reports chest pain; Denies palpitations Respiratory/Chest Respiratory/Chest: Reports cough and dyspnea Gastrointestinal Gastrointestinal: Reports diarrhea and nausea; Denies abdominal pain or vomiting Genitourinary Genitourinary ED: Denies dysuria or hematuria Musculoskeletal Musculoskeletal: Reports neck pain; Denies back pain Integumentary Denies abscess or rash Neurologic Neurologic: Reports headache(s); Denies weakness Allergic/Immunologic Allergic/Immunologic ED: Denies mouth swelling or urticaria [facility] Medical History Oppositional defiant disorder High-functioning autism spectrum disorder ADHD Anxiety Depression Home Medications Medication Instructions Recorded Last Taken Type NK 05/13/25 Unknown History Allergy/AdvReac Type Severity Reaction Status Date / Time No Known Allergies Allergy Verified 07/18/25 15:01 Surgical History no surgical history no surgical history Social History Smoking Status: Current every day smoker tobacco type: cigarettes substance use type: does not use EXAM Physical Exam Const Vital Signs: 07/18/25 14:58 07/18/25 15:20 Temperature 97.9 F Temperature Source Oral Pulse Rate 70 Respiratory Rate 18 Respiratory Pattern Normal Blood Pressure 159/103 H Blood Pressure Mean 121 Pulse Ox 100 Positive well nourished and well developed General Appearance ED: well developed and NAD HEENT Reports moist mucous membranes normocephalic and atraumatic Throat: posterior oropharynx normal Neck supple and no JVD Resp normal respiratory effort and clear to auscultation bilaterally Cardio Rate: regular rate Rhythm: regular rhythm GI non-tender and non-distended Palpation: soft Extremity normal to inspection Neuro oriented x3, CN's II-XII intact bilaterally and no sensory deficits noted Sensorium / Orientation: alert Motor Exam: strength 5/5 throughout Psych mental status grossly normal MDM MDM MDM Narrative Medical decision making narrative: Differential diagnose includes pneumonia, bronchitis, and viral upper respiratory infection. Chest x-ray will be obtained to assess for pneumonia and bronchitis. COVID-19, influenza, and RSV PCR will be obtained to assess for viral infection. Treatment and Re-Evaluation Narrative: Patient did not want to wait for his x-ray or his viral swabs. Patient left prior to having any testing done. Discharge Plan Triage Chief Complaint: Cold Sx ED Provider: Alec Montenegro Dx/Rx/DC Orders Clinical Impression: Viral illness, Nicotine vapor product user Prescriptions: No Action NK Primary Care Provider: Manuel Laureano Referrals: Manuel Laureano MD [Primary Care Provider, Pediatrics] Print Language: Kyrgyz Disposition Disposition: Elopement Discharge Date/Time: 07/18/25 15:40
--- NOTE | 2025-07-18 15:23 | NURSING ---
Pt informmed of plan of care: COVID Flu swab and CXR and that typical ER visits are 3-4 hours. Pt became very upset saying,"Great so they don't even do what I came in here for. I know I don't have COVID, I have pneumonia." I informed him that is why were were doing the CXR so we could make sure he has pneumonia. Pt decided to leave without treatment.
--- OUTSIDE RECORDS SUMMARY | 2025-07-18 15:39 | XMS RPT_ITS | CCD ---
Author Organization [facility] Care Team Providers Care Compensation Associate Name Role Phone RASHAD COHEN, DR SALLIE Ayala Primary Care Physician [phone] SALLIE SOLORZANO Primary Care Unavailable DOT LAGUNAS KGrace Consulting Unavailable DOT [place] KGrace Admitting Unavailable DOT [place] Attending Unavailable Sallie Solorzano MD Primary Care Provider SELF, REFERRED Referring Unavailable RONIT RAYGOZA Attending Unavailable RONIT RAYGOZA Admitting Unavailable MAULIK, FABBY Admitting Unavailable MAULIK, FABBY Consulting Unavailable MAULIK, FABBY Attending Unavailable RASHAD TODD, SALLIE~[phone] [facility] Primary Care Unavailable RASHAD TODD, SALLIE~[phone] RASHAD Consulti ng Unavailable RASHAD, SALLIE Consulting Unavailable BRITTANY MAR APRN Consulting Unavailab brett RIZO, SALLIE~[phone] [facility] Primary Care Unavailable ISABELA CAROLE~[phone], [place] Admitting Unavailable ISABELA CAROLE~[phone], [place] Attending Unavailable BRITTANY MAR APRN Consulting Unavailab brett RIZO, SALLIE~[phone] [facility] Primary Care Unavailable BRITTANY MAR Admitting Unavailable BRITTANY MAR Consulting Unavailable BRITTANY MAR Attending Unavailable BRITTANY MAR APRN Consulting Unavailab Mehnaz COHEN, TREVIN Consulting Unavailable BRETT COHEN, TREVIN Consulting Unavailable RASHAD SALLIE, SALLIE~[phone] RASHAD Consulti ng Unavailable RASHAD, SALLIE Consulting Unavailable MAULIK, FABBY Consulting Unavailable MAULIK, FABBY Attending Unavailable RASHAD RIZO SALLIE~[phone] RASHAD Primary Care Unavailable MAULIK, FABBY Admitting Unavailable RASHAD RIZO SALLIE~[phone] RASHAD Consulti ng Unavailable SALLIE SOLORZANO Consulting Unavailable Sallie Solorzano Primary Care Provider SALLIE SOLORZANO Primary Care Unavailab le MAULIK, FABBY H Attending Unavailable SALLIE SOLORZANO R Primary Care Unavailable REFERRED, SELF Referring Unavailable SALLIE SOLORZANO R Primary Care Unavailable MAULIK, FABBY H Attending Unavailable REFERRED, SELF Referring Unavailable MAULIK, FABBY H Attending Unavailable REFERRED, SELF Referring Unavailable RASHAD, TODD R Primary Care Unavailable REFERRED, SELF Referring Unavailable MAULIK, FABBY H Attending Unavailable RASHAD, TODD R Primary Care Unavailable SALLIE SOLORZANO R Primary Care Unavailable RASHAD, SALLIE R Attending Unavailable REFERRED, SELF Referring Unavailable MAULIK, FABBY H Attending Unavailable MAULIK, FABBY H Referring Unavailable SALLIE SOLORZANO R Primary Care Unavailable MAULIK, FABBY H Attending Unavailable SALLIE SOLORZANO R Primary Care Unavailable REFERRED, SELF Referring Unavailable RASHAD, SALLIE R Primary Care Unavailable MAULIK, FABBY H Attending Unavailable REFERRED, SELF Referring Unavailable RASHAD, TODD R Primary Care Unavailable MAULIK, FABBY H Attending Unavailable REFERRED, SELF Referring Unavailable MAULIK, FABBY H Attending Unavailable REFERRED, SELF Referring Unavailable SALLIE SOLORZANO R Primary Care Unavailable Dr. Sallie Solorzano MD Primary Care Provider Dr. Marek Booker DO Attending Provider Dr. Marek Booker DO Emergency Provider Dr. Adebayo Tapia DO Emergency Provider Dr. Sallie Solorzano MD Primary Care Provider Dr. Adebayo Tapia DO Attending Provider Provider, Ed Physician Emergency Provider Sarah goff Provider, Ed Physician Attending Provider Dr. Sallie Marie MD Referring Provider Jamie Cameron MD Attending Provider Dr. Sallie Solorzano MD Primary Care Physician Dr. Adebayo Tapia DO Attending Physician Dr. Adebayo Tapia DO Emergency Department Physic antonino Provider, Ed Physician Attending Physician Unava ilej Provider, Ed Physician Emergency Department Phys ician Unavailable Jamie Cameron MD Attending Physician [phone] Paulo Khan MD Attending Physician Provider, Ed Physician Attending Unavailab le Rashad, Sallie Primary Care Unavailable Marek Booker Attending Unavailable Rashad, Sallie Primary Care Unavailable Jamie Cameron Attending Unavailable Rashad, Sallie Referring Unavailable Rashad, Sallie Primary Care Unavailable Paulo Khan Attending Unavailable Rashad, Sallie Primary Care Unavailable Jamie Cameron Attending Unavailable Rashad, Sallie Referring Unavailable Rashad, Sallie Primary Care Unavailable Jamie Cameron Attending Unavailable Rashad, Sallie Referring Unavailable Rashad, Sallie Primary Care Unavailable Adebayo Tapia Attending Unavailable Rashad, Sallie Primary Care Unavailable Adebayo Tapia Attending Unavailable Rashad, Sallie Primary Care Unavailable Medications Current Medications Medication [...] 01/10/2023 Active lamoTRIgine 100 mg oral tablet (19 sources) Mood Stabilizer, Anti-epileptic Agent Start: 02-12-2024 [...] Active lurasidone hydrochloride 40 mg oral tablet (16 sources) Atypical Antipsychotic Start: 01-04-2023 lurasid one [...] 30 Tablet 2 04/03/2022 Suspended Start: 12-03-2021 End: 05-13-2025 Lurasidone (Latuda) 60 mg Ta blet Discontinued 80 mg PO 1600 December 03, 2021 12:00am May 13, 2025 2:22pm mupirocin 0.02 mg/mg topical ointment (2 sources) RNA Synthetase Inhibitor Antibacterial Start: 04-13-2024 End: 04-20-2024 mupirocin (BACTROBAN) 2 % ointment Apply to affected area three times a day for 7 days. 15 g 0 04/13/2024 04/20/2024 Active Ackley (Nk) (3 sources) Start: 05-13-2025 Ackley (Nk) A ctive May 13, 2025 12:00am 24 hr QUEtiapine 50 mg extended release oral tablet (1 source) Atypical Antipsychotic Start: 02-12-2024 End: 05-12-2024 QUEtiapine XR (SEROQUEL XR) 50 mg Tb24 Take 100 mg by mouth. 0 02/12/2024 05/12/2024 Active sertraline 50 mg oral tablet (13 sources) Serotonin Reuptake Inhibitor Start: 01-04-2023 sertraline [...] PO AT BEDTIME June 21, 2022 12:00am Completed/Discontinued Medications Medication Drug Class(es) Dates Sig [...] End: 06-14-2022 escitalopram (LEXAPRO) tablet 5 mg 30/70 release 24 hr methylphenidate hydrochloride 40 mg extended release oral capsule (9 sources) Central Nervous System Stimulant Start: 12-26-2022 End: 05-13-2025 Methylphenidate Hcl 40 mg capsule, ER biphasic 30-70 Discontinued 40 mg PO DAILY December 26, 2022 12:00am May 13, 2025 2:22pm Start: 08-04-2022 End: 09-03-2022 take 1 capsule [...] mg by mouth once daily. 0 Active traZODone hydrochloride 50 mg oral tablet (8 sources) Serotonin Reuptake Inhibitor Start: 03-17-2025 End: 05-13-2025 take 1 tablet by mouth at bedtime Trazodone 50 mg tablet Discontinued 50 mg PO AT BEDTIME March 17, 2025 12:00am May 13, 2025 2:22pm Start: 01-10-2023 traZODone (MATTHIAS YREL) 50 mg tablet 01/10/2023 Active Problems Active Problems Problem Classification Problem Date Documented Date Episodic/Chronic Anxiety disorders (20 sources) Self inflicted injury; Translations: [Self-inflicted injury] Onset: 06-23-2022 Chronic Attention-deficit, conduct, and disruptive behavior disorders (13 sources) Oppositional defiant disorder; Translations: [Oppositional defiant disorder] Onset: 09-14-2021 Resolved: 01-10-2022 01-10-2022 Chronic Attention-deficit, conduct, and disruptive behavior disorders (2 sources) Attention deficit hyperactivity disorder, combined type; Translations: [Attention-deficit hyperactivity disorder, combined type] Onset: 08-11-2019 04-22-2021 Chronic Attention-deficit, conduct, and disruptive behavior disorders (8 sources) Attention deficit hyperactivity disorder; Translations: [Attention-deficit hyperactivity disorder, unspecified type] 03-25-2025 Chronic Disorders usually diagnosed in infancy, childhood, or adolescence (2 sources) Autism spectrum disorder; Translations: [Autistic disorder] Onset: 09-05-2021 09-05-2021 Chronic Fracture of upper limb (11 sources) Closed fracture of fifth metacarpal; Translations: [Unspecified fracture of fifth metacarpal bone, left hand, initial encounter for closed fracture] Onset: 06-08-2025 05-10-2025 Episodic Impulse control disorders, NEC (6 sources) Homicidal thoughts; Translations: [Homicidal ideations] 01-10-2025 Episodic Miscellaneous mental health disorders (2 sources) Mental disorder; Translations: [Mental disorder, not otherwise specified] Onset: 06-13-2022 06-13-2022 Chronic Mood disorders (20 sources) Depressive disorder; Translations: [Depression with suicidal ideation] Onset: 03-21-2021 Resolved: 01-10-2022 06-14-2022 Chronic Open wounds of head; neck; and trunk (9 sources) Laceration of neck; Translations: [Laceration without foreign body of unspecified part of neck, initial encounter] 07-01-2022 Episodic Other aftercare (3 sources) 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; Translations: [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] Onset: 03-22-2023 Episodic Other injuries and conditions due to external causes (11 sources) Abrasion and/or friction burn of multiple sites; Translations: [Unspecified multiple injuries, initial encounter] 12-12-2021 Episodic Other injuries and conditions due to external causes (1 source) Unspecified injury of left wrist, hand and finger(s), initial encounter; Translations: [Unspecified injury of left wrist, hand and finger(s), initial encounter] Onset: 05-14-2025 Episodic Other nutritional; endocrine; and metabolic disorders (2 sources) Obesity; Translations: [Obesity, unspecified] Onset: 05-15-2012 10-13-2021 Chronic Other upper respiratory disease (2 sources) Allergic rhinitis; Translations: [Allergic rhinitis, unspecified] Onset: 01-16-2011 10-13-2021 Chronic Residual codes; unclassified (11 sources) Restlessness and agitation; Translations: [Restlessness and agitation] 12-12-2021 Chronic Residual codes; unclassified (13 sources) Deliberate self-cutting; Translations: [Other problems related to lifestyle] 12-26-2022 Episodic Residual codes; unclassified (1 source) Procedure and treatment not carried out due to patient leaving prior to being seen by health care provider; Translations: [Procedure and treatment not carried out due to patient leaving prior to being seen by health care provider] Onset: 05-11-2025 Episodic Screening and history of mental health and substance abuse codes (11 sources) Antisocial behavior; Translations: [Antisocial behavior] 10-23-2021 Episodic Skin and subcutaneous tissue infections (1 source) Infection of skin; Translations: [Local infection of the skin and subcutaneous tissue, unspecified] 04-13-2024 Episodic Superficial injury; contusion (11 sources) Contusion of hand; Translations: [Contusion of left hand, initial encounter] 12-12-2021 Episodic Unclassified (1 source) OTHER LOW BACK PAIN; Translations: [OTHER LOW BACK PAIN] Onset: 06-26-2023 Unclassified (2 sources) LOW BACK PAIN, UNSPECIFIED; Translations: [LOW BACK PAIN, UNSPECIFIED] Onset: 06-01-2023 Unclassified (4 sources) Fifth metacarpal fracture Past or Other Problems Problem Classification Problem Date Documented Da te Episodic/Chronic Malaise and fatigue (1 source) Weakness; Translations: [WEAKNESS] Onset: 06-22-2023 Episodic Open wounds of extremities (16 sources) Superficial laceration of forearm; Translations: [Laceration without foreign body of unspecified forearm, initial encounter] Onset: 03-23-2025 07-01-2022 Episodic Other connective tissue disease (1 source) [...] WITH SCIATICA UNS SIDE] Onset: 06-20-2023 Episodic Suicide and intentional self-inflicted injury (20 sources) Suicidal thoughts; Translations: [Suicidal ideations] Onset: 09-12-2021 Resolved: 01-10-2022 01-10-2022 Episodic Unclassified (5 sources) Intentional self-harm; Translations: [Intentional self-harm] 10-23-2021 Unclassified (1 source) LOW BACK PAIN, UNSPECIFIED; Translations: [LOW BACK PAIN, UNSPECIFIED] Onset: 05-30-2023 Results Test Name Value Interpretation Reference Range Facility Hand Min 3 Viewson 5 Hand Min [address] [facility] [address] [place] [address] [id number] Hand Min 3 Views MR#: [id number] Acct: [id number] Name: MANNY MCNALLY Rep #: [id number] : 2005 M 19 From: Shabbir Martinez PCP: Dr. Sallie Solorzano MD Status: DEP AMB Study: Hand Min 3 Views Date of Exam: 06/08/25 Exam# [id number] Ordering Dr: Jamie Cameron MD PROCEDURE: HAND MIN 3 VIEWS 06/08/2025 REASON FOR EXAM: FU fracture. TECHNIQUE: Procedure Code: SHEILA Modality: DX Procedure: HAND MIN 3 VIEWS Laterality: Left. COMPARISON: Left hand study of 05/10/2025. RAD/Hand Min 3 Views IMPRESSION: Again seen is a fracture of the neck of the left 5th metacarpal bone, with significant posteromedial apex angulation noted, not clearly changed since the prior study given differences in positioning. The fracture line remains apparent. Reading Location: [place] [address] CC: Dr. Jamie Cameron MD; Dr. Sallie Solorzano MD Entrepreneur: Signed Normal [facility] Orthopedic Visit Reporton Orthopedic Visit Report [facility] [address] [place] [address] OFFICE VISIT Date of Service: 06/08/25 MR#: [id number] Acct: [id number] Name: MANNY MCNALLY Rep #: [id number] : 2005 Provider: Dr. Jamie saavedra MD Age/Sex: 19/M Location: [facility] Status: Signed Intake Vital Signs 05/12/25 15:44 Height 5 ft 11 in Intake Visit Reasons: LEFT HAND Chief Complaint: Left Hand Follow-Up Accompanied by: Self Is patient in pain?: Yes Allergies No Known Allergies Allergy (Verified 06/08/25 15:15) Medications ???Medication ???Instructions ???Recorded ???Confirmed ???Type NK 05/13/25 06/08/25 History PFSH Medical History Oppositional defiant disorder High-functioning autism spectrum disorder ADHD Anxiety Depression Social History Smoking Status: Current every day smoker tobacco type: cigarettes substance use type: does not use HPI LEFT HAND Details: This documentation accurately reflects the service provided and the decisions made by me, Dr. Jamie Cameron MD 06/08/25 1058. Part of today???s visit was documented by [ ], acting as scribe. MANNY MCNALLY is a 19 year old M here today for 3 weeks FU L 5th MC neck fracture (boxers fracture), non opt mgt. NEED XR. doing well. no concerns. mild pain. using the brace. Supplemental Info X-rays 3 views of the hand demonstrate mild dorsal angulation of the fracture no further displacement good callus formation. Coding Level of Care Code Off vis,est,level 3 Diagnoses Closed fracture of fifth metacarpal bone of left hand S62.307A Assessment and Plan Assessment and Plan (1) Closed fracture of fifth metacarpal bone of left hand: Status: Inactive Plan: MANNY MCNALLY is a 19 year old M here today for 3 weeks FU L 5th MC neck fracture (boxers fracture), non opt mgt. fracture is healing, has good alignment full range of motion mild pain on exam. Recommend at this point to discontinue the brace and do early range of motion avoid heavy lifting gripping pushing and pulling beyond about 1 pound but make sure to get the range of motion going and follow-up in about a month's time for final radiographs and clearance for more aggressive activities of the hand. The patient understands and agreement with the plan no further questions or concerns. Orders: Orders Hand Min 3 Views Today S62.307A - Unspecified fracture of fifth metacarpal bone, left hand, initial encounter for closed fracture Ortho Exam General General: Yes no acute distress Neurologic: Yes alert and Yes oriented x3 Psychologic: Yes reasonable and appropriate Right Wrist/Hand Skin/Wound: No Swelling and No Ecchymosis Left Wrist/Hand Skin/Wound: Yes CDI, No Swelling, No Ecchymosis, Yes nail intact, Yes capillary refill normal and No erythema Left Wrist: Yes ROM-Extension 0-60, Yes ROM-Flexion 0-80, Yes ROM-Pronation 0-80, Yes ROM-Supination 0-90 and Yes TTP Fracture site; No Tender to palpate triangular fibrocartilage complex and No Distal radioulnar joint Motor: EPL: 5, FDP-2: 5, 1st Dorsal Interosseous: 5 and APB: 5 Sensation: Radial: I, Ulnar: I and Median: I WRIST: no scissoring / crossing over. able to make full fist, normal full ROM of the 5th digit. 06/08/25 1535 Date Jamie Cameron MD Cosigner Signature: Date (if applicable) CC: Normal [facility] Orthopedic Visit Reporton Orthopedic Visit Report [facility] [address] [place] [address] OFFICE VISIT Date of Service: 05/13/25 MR#: [id number] Acct: [id number] Name: MANNY MCNALLY Rep #: [id number] : 2005 Provider: Dr. Jamie saavedra MD Age/Sex: 19/M Location: [facility] Status: Signed Intake Vital Signs 05/10/25 00:54 05/12/25 15:44 Height 5 ft 11 in 5 ft 11 in Intake Visit Reasons: LEFT HAND Chief Complaint: Left Hand ER Referral Accompanied by: Friend Is patient in pain?: Yes Pain scale (1-10): 5 Allergies No Known Allergies Allergy (Verified 05/13/25 14:22) Medications ???Medication ???Instructions ???Recorded ???Confirmed ???Type NK 05/13/25 05/13/25 History PFSH Medical History Oppositional defiant disorder High-functioning autism spectrum disorder ADHD Anxiety Depression Social History Smoking Status: Current every day smoker tobacco type: cigarettes substance use type: does not use HPI LEFT HAND Details: This documentation accurately reflects the service provided and the decisions made by me, Dr. Jamie Cameron MD 05/13/25 1302. Part of today???s visit was documented by [ ], acting as scribe. MANNY MCNALLY is a 19 year old M here today for L 5th MC neck fracture (boxers fracture). refer from ED> 3 days ago punched a trash can. LHD. not working. was splinted. enjoys video games. per ED "19-year-old male with past medical history of anxiety and depression as well as ADHD. He states that roughly 10 hours ago he was upset and secondary to his he punched a trash can. He states after striking the trash can he noticed pain and swelling in his left hand. He states that the symptoms have been persistent and slightly worsening throughout the day. Secondary to this he has concern for fracture and therefore comes in for evaluation" Supplemental Info [facility] [address] [place], [place] [id number] Hand Min 3 Views MR#: [id number] Acct: [id number] Name: MANNY MCNALLY Rep #: [id number] : 2005 M 19 From: Aj Hamilton MD PCP: Dr. Sallie Solorzano MD Status: DEP ER Study: Hand Min 3 Views Date of Exam: 05/10/25 Exam# [id number] Ordering Dr: Adebayo Tapia DO PROCEDURE: HAND MIN 3 VIEWS 05/09/2025 REASON FOR EXAM: PAIN TECHNIQUE: Procedure Code: SHEILA Modality: DX Procedure: HAND MIN 3 VIEWS Laterality: Left COMPARISON: 12/04/2021 FINDINGS: Bones: No acute fractures or dislocations. Joints: Normal alignment. Joint spaces preserved. No arthropathic features. Soft tissues: Soft tissues are unremarkable. RAD/Hand Min 3 Views IMPRESSION: NEGATIVE HAND SERIES disagree w report - 5th MC neck fracture, mild angulation. Coding Level of Care Code Off vis,new,level 4 Diagnoses Closed fracture of fifth metacarpal bone of left hand S62.307A Assessment and Plan Assessment and Plan (1) Closed fracture of fifth metacarpal bone of left hand: Status: Acute Plan: 19 M with L 5th MC neck fracture (boxers fracture). Recommend non op given good alignment, mild angulation. Ulnar gutter position of safety 3 weeks, then FU for xrays and exam. He can play video games but no heavy gripping pushing lifting or twisting on the upper extremity okay to remove the splint for showering the patient understands no further questions or concerns. Ortho Exam General General: Yes no acute distress Neurologic: Yes alert and Yes oriented x3 Psychologic: Yes reasonable and appropriate Right Wrist/Hand Skin/Wound: Yes Swelling and Yes Ecchymosis Left Wrist/Hand Skin/Wound: Yes CDI, Yes Swelling, Yes Ecchymosis, Yes nail intact, Yes capillary refill normal and No erythema Left Wrist: Yes ROM-Extension 0-60, Yes ROM-Flexion 0-80, Yes ROM-Pronation 0-80, Yes ROM-Supination 0-90 and Yes TTP Fracture site; No Tender to palpate triangular fibrocartilage complex and No Distal radioulnar joint Motor: EPL: 5, FDP-2: 5, 1st Dorsal Interosseous: 5 and APB: 5 Sensation: Radial: I, Ulnar: I and Median: I WRIST: no scissoring / crossing over. 05/13/25 1430 Date [facility] Signature: Date (if applicable) CC: Normal [facility] Emergency Department Summary on 05-10-2025 Emergency Department Summary [facility] Medical Records Department [address] [place] [address] Emergency Department Summary 05/10/25 MR#: [id number] Acct: [id number] Name: MANNY MCNALLY Rep #: [id number] : 2005 19 From: Adebayo Tapia DO PCP: Dr. Sallie Solorzano MD Status:DEP ER Location: ED HPI History of Present Illness Chief Complaint: Upper Extremity Injury Informant: patient and friend Narrative Narrative: Patient is a 19-year-old male with past medical history of anxiety and depression as well as ADHD. He states that roughly 10 hours ago he was upset and secondary to his he punched a trash can. He states after striking the trash can he noticed pain and swelling in his left hand. He states that the symptoms have been persistent and slightly worsening throughout the day. Secondary to this he has concern for fracture and therefore comes in for evaluation Patient reports he is left-hand dominant. [facility] Medical History Oppositional defiant disorder High-functioning [...] / Time No Known Allergies Allergy Verified 05/10/25 00:54 Social History Smoking Status: Current every day smoker tobacco type: cigarettes substance use type: does not use ROS ROS ED Constitutional Constitutional ED: Denies chills or fever(s) Cardiovascular Cardiovascular: Denies chest pain Respiratory/Chest Respiratory/Chest: Denies cough or dyspnea Gastrointestinal Gastrointestinal: Denies abdominal pain, diarrhea, nausea or vomiting Musculoskeletal Musculoskeletal: Reports other Details: Positive left hand pain and swelling Integumentary Reports other Details: Positive bruising and swelling left hand Neurologic Neurologic: Denies headache(s) or paresthesias Psychiatric Psychiatric: Reports anxiety and depression Hematologic/Lymphatic Hematologic/Lymphatic: Denies easy bleeding or easy bruising EXAM Physical Exam Const Vital Signs: 05/10/25 00:54 Temperature 97.7 F L Temperature Source Oral Pulse Rate 58 L Respiratory Rate 18 Blood Pressure 134/77 H Blood Pressure Mean 96 Pulse Ox 97 Oxygen Delivery Method Room Air Positive well nourished, well developed and obese General Appearance ED: well developed Nutritional Appearance: obese HEENT HEENT Narrative: Normocephalic atraumatic Eyes PERRL and EOMs intact bilaterally Neck full ROM and supple Resp normal respiratory effort and clear to auscultation bilaterally Cardio regular rate and regular rhythm Extremity Extremity Narrative: Left upper extremity is neurovascularly intact; AIN/PIN are intact and normal Active range of motion is decreased secondary to pain Patient has soft tissue swelling to the dorsal and volar aspect of the left hand over top the 4th and 5th metacarpal region. There is bruising present along the volar aspect of the left hand over top of the fifth metacarpal. There is mild rotational deformity of the left fifth digit as well. No signs of ligamentous or tendon injury. No subungual hematoma. There is pain with palpation over the distal aspect of the left fifth metacarpal. Compartments are soft and compressible going against compartment syndrome Neuro oriented x3 and CN's II-XII intact bilaterally Sensorium / Orientation: alert Psych mental status grossly normal Skin no rashes or lesions noted Skin Narrative: Soft tissue swelling with ecchymosis to the left hand as documented above MDM MDM MDM Narrative Medical decision making narrative: Patient arrived to the ER complaining of direct trauma to the left hand after striking a trash can multiple hours ago. With swelling pain ecchymosis and rotational deformity there is high likelihood for fifth metacarpal fracture. Secondary to this an x-ray was obtained. X-ray showed a fracture to the distal aspect of the fifth metacarpal. There is no sign of dislocation. By physical exam he has no findings of ligamentous or tendon injury either. He is closed and neurovascularly intact therefore there is no need for emergent orthopedic consultation. The patient was placed in a ulnar gutter splint as documented below and out of the fracture has been stabilized he can follow with orthopedics as an outpatient to discuss casting. Patient had the left hand placed in a Orth (more content not included)... Normal [facility] Hand Min 3 Viewson 5 Hand Min [address] [facility] Imaging Services [address] [place], [place] [id number] Hand Min 3 Views MR#: [id number] Acct: [id number] Name: MANNY MCNALLY Rep #: [id number] : 2005 M 19 From: Aj Hamilton MD PCP: Dr. Sallie Solorzano MD Status: DEP ER Study: Hand Min 3 Views Date of Exam: 05/10/25 Exam# [id number] Ordering Dr: Adebayo Tapia DO ADDENDUM by Dr. Aj Hamilton MD on 05/15/25 at 0215 Please note that there is a subtle, comminuted, and foreshortened fracture at the distal aspect of the left 5th metacarpal. Reading Location: [facility] 05/15/25 021 Date cc: Dr. Sallie Solorzano MD; Adebayo Tapia DO * Signed PROCEDURE: HAND MIN 3 VIEWS 05/09/2025 REASON FOR EXAM: PAIN TECHNIQUE: Procedure Code: SHEILA Modality: DX Procedure: HAND MIN 3 VIEWS Laterality: Left COMPARISON: 12/04/2021 FINDINGS: Bones: No acute fractures or dislocations. Joints: Normal alignment. Joint spaces preserved. No arthropathic features. Soft tissues: Soft tissues are unremarkable. RAD/Hand Min 3 Views IMPRESSION: NEGATIVE HAND SERIES Reading Location: [facility] CC: Dr. Sallie Solorzano MD; Adebayo Tapia DO Entrepreneur: Signed Normal [facility] Emergency Department Summary on 03-17-2025 Emergency Department Summary [facility] Medical Records Department [address] [place] [address] Emergency Department Summary 03/17/25 MR#: [id number] Acct: [id number] Name: MANNY MCNALLY Rep #: [id number] : 2005 19 From: Adebayo Tapia DO PCP: Dr. Sallie Solorzano MD Status:DEP ER Location: ED HPI History of Present Illness Chief Complaint: Laceration Informant: patient and friend Narrative Narrative: Patient is a 19-year-old male with past medical history of anxiety depression and ADHD. He states that the only coping mechanism that works for him is "cutting". He states he has been to multiple [...] of bleeding disorder or blood thinner use [facility] Medical History Oppositional defiant disorder High-functioning [...] tissue infectio (more content not included)... Normal [facility] Absolute lymphocyte countOrd ered By: Marek Booker on 01-02-2025 Lymphocytes Auto (Unsp spec) [#/Vol] 1.21 10*3/uL 0.83-4.51 [facility] Absolute neutrophil countOrd ered By: Marek Booker on 01-02-2025 Neutrophils (Bld) [#/Vol] 5.3 10*3/uL 2.0-7.7 [facility] Alcohol, Blood (Medical)-Ser umon 01-02-2025 SERUM ETOH < 10.1 Normal <=10.0 [facility] Comment on above: Result Comment: This test is for medical purposes only. The legal definition of intoxication varies according to local law. Performed By: #### L 100.0100, L501.9100, L505.5000, L500.2500 #### [facility] Laboratory [address] [place], [address] Amphetamine detection with 1 000 ng/mL as cutoffOrdered By: Marek Booker on 01-02-2025 Amphetamines Screen method >1000 ng/mL Ql (U) Negative < 200 ng/mL [facility] Anion gap in Serum or Plasma Ordered By: Marek Booker on 01-02-2025 Anion gap [Moles/Vol] 16 mmol/L High 5-[address] [facility] Automated lymphocyte count a s percentage of total leukocytesOrdered By: Marek Booker on 01-02-2025 Lymphocytes/100 WBC Auto (Unsp spec) 16.1 % Low 19-41 [facility] BUN/creatinine ratioOrdered By: Marek Booker on 01-02-2025 Urea nitrogen/Creatinine [Mass ratio] 11.6 mg/mg 10- [facility] Basic Metabolic Profile (BMP )on 01-02-2025 BUN/CRE 11.6 RATIO Normal - [facility] Comment on above: Performed By: #### L 100.0100, L501.9100, L505.5000, L500.2500 #### [facility] [address] [place], [address] GFR/1.73 sq M.predicted among non-blacks MDRD (S/P/Bld) [Vol rate/Area] 135 mL/min/{1.73_m2} Normal >60 [facility] Comment on above: Result Comment: mL/m in/1.73m2 CKD-EPI Creatinine Equation (2020) Performed By: #### L 100.0100, L501.9100, L505.5000, L500.2500 #### [facility] [address] [place], [address] Urea nitrogen [Mass/Vol] 8 mg/dL Normal -19 [facility] Comment on above: Performed By: #### L 100.0100, L501.9100, L505.5000, L500.2500 #### [facility] [address] [place], [address] Basophil percentageOrdered B y: Marek Booker on 01-02-2025 Basophils/100 WBC (Bld) 0.4 % 0-1 [facility] CBC W/Diff, Automatedon Absolute Lymph 1.21 X10 3/uL Normal 0.83-4.51 [facility] Comment on above: Performed By: #### L 100.0100, L501.9100, L505.5000, L500.2500 #### [facility] [address] [place], [address] Absolute Neut 5.3 X10 3/uL Normal 2.0-7.7 [facility] Comment on above: Performed By: #### L 100.0100, L501.9100, L505.5000, L500.2500 #### [facility] [address] [place], [address] Basophils/100 WBC (Bld) 0.4 % Normal 0-1 [facility] Comment on above: Performed By: #### L 100.0100, L501.9100, L505.5000, L500.2500 #### [facility] [address] [place], [address] Eosinophils/100 WBC (Bld) 0.3 % Normal 0-5 [facility] Comment on above: Performed By: #### L 100.0100, L501.9100, L505.5000, L500.2500 #### [facility] [address] [place], [address] Erythrocyte distribution width (RBC) [Ratio] 12.5 % Normal 11.6-14.6 [facility] Comment on above: Performed By: #### L 100.0100, L501.9100, L505.5000, L500.2500 #### [facility] [address] [place], [address] Hematocrit (Bld) [Volume fraction] 45.7 % Normal 40-54 [facility] Comment on above: Performed By: #### L 100.0100, L501.9100, L505.5000, L500.2500 #### [facility] [address] [place], [address] Hemoglobin (Bld) [Mass/Vol] 16.2 g/dL Normal 13.0-16.5 [facility] Comment on above: Performed By: #### L 100.0100, L501.9100, L505.5000, L500.2500 #### [facility] [address] [place], [address] IG% 0.400 Normal 0.0-0.9 [facility] Comment on above: Result Comment: IG% - Immature Granulocytes (promyelocytes, myelocytes and metamyelocytes) > 1% indicates that a LEFT SHIFT is Present. Performed By: #### L 100.0100, L501.9100, L505.5000, L500.2500 #### [facility] [address] [place], [address] Lymphocytes/100 WBC (Bld) 16.1 % Low 19-41 [facility] Comment on above: Performed By: #### L 100.0100, L501.9100, L505.5000, L500.2500 #### [facility] [address] [place], [address] MCH (RBC) [Entitic mass] 29.1 pg Normal 27.0-32.0 [facility] Comment on above: Performed By: #### L 100.0100, L501.9100, L505.5000, L500.2500 #### [facility] [address] [place], [address] MCHC (RBC) [Mass/Vol] 35.4 g/dL Normal 32-[address] [facility] Comment on above: Performed By: #### L 100.0100, L501.9100, L505.5000, L500.2500 #### [facility] [address] [place], [address] MCV (RBC) [Entitic vol] 82.2 fL Normal 80-94 [facility] Comment on above: Performed By: #### L 100.0100, L501.9100, L505.5000, L500.2500 #### [facility] [address] [place], [address] Monocytes/100 WBC (Bld) 11.7 % High 0-10 [facility] Comment on above: Performed By: #### L 100.0100, L501.9100, L505.5000, L500.2500 #### [facility] [address] [place], [address] Neutrophils/100 WBC (Bld) 71.1 % High 47-70 [facility] Comment on above: Performed By: #### L 100.0100, L501.9100, L505.5000, L500.2500 #### [facility] [address] [place], [address] Nucleated RBC (Bld) [#/Vol] 0 10*3/uL Normal 0-5 [facility] Comment on above: Performed By: #### L 100.0100, L501.9100, L505.5000, L500.2500 #### [facility] [address] [place], [address] Platelet mean volume (Bld) [Entitic vol] 10.2 fL Normal 6.2-12.0 [facility] Comment on above: Performed By: #### L 100.0100, L501.9100, L505.5000, L500.2500 #### [facility] [address] [place], [address] Platelets (Bld) [#/Vol] 249 10*3/uL Normal 150-450 [facility] Comment on above: Performed By: #### L 100.0100, L501.9100, L505.5000, L500.2500 #### [facility] [address] [place], [address] RBC (Bld) [#/Vol] 5.56 10*6/uL Normal 4.6-6.2 [facility] Comment on above: Performed By: #### L 100.0100, L501.9100, L505.5000, L500.2500 #### [facility] [address] [place], [address] RDW SD 37.6 fl Normal 35.1-43.9 [facility] Comment on above: Performed By: #### L 100.0100, L501.9100, L505.5000, L500.2500 #### [facility] [address] [place], [address] WBC (Bld) [#/Vol] 7.5 10*3/uL Normal 4.4-11.0 [facility] Comment on above: Performed By: #### L 100.0100, L501.9100, L505.5000, L500.2500 #### [facility] [address] [place], [address] Carbon dioxide, total [Moles /volume] in Central venous bloodOrdered By: Marek Booker on 01-02-2025 CO2 [Moles/Vol] 20.0 mmol/L Low 21.0-32.0 [facility] Chloride assayOrdered By: Pop Booker on 01-02-2025 Chloride [Moles/Vol] 104 mmol/L 98-108 [facility] Emergency Department Summary on 01-02-2025 Emergency Department Summary [facility] Medical Records Department [address] [place] [address] Emergency Department Summary 01/02/25 MR#: [id number] Acct: [id number] Name: MANNY MCNALLY Rep #: [id number] : 2005 19 From: Marek Booker DO [...] that he is just angry and frustrated. [facility] Medical History Oppositional defiant disorder High-functioning [...] working on placement. Patient was accepted to [facility] by Dr. Magallanes. Lab Data Labs: Laboratory Results - last 24 hr 01/02/25 01/02/25 17:42 17:50 WBC 7.5 RBC 5.56 Hgb 16.2 Hct 45.7 MCV 82.2 MCH 29.1 MCHC 35.4 RDW Std Deviation 37.6 RDW Coeff of Autumn 12.5 Plt Count 249 MPV 10.2 Immature Gran % (Auto) 0.400 Neut % (Auto) 71.1 H Lymph % (Auto) 16.1 L [place] % (Auto) 11.7 H Eos % (Auto) [...] Ur Oxycodon (more content not included)... Normal [facility] Eosinophil percentageOrdered By: Marek Booker on 01-02-2025 Eosinophils/100 WBC (Bld) 0.3 % 0-5 [facility] Erythrocyte distribution wid th ratioOrdered By: Marek Booker on 01-02-2025 Erythrocyte distribution width (RBC) [Ratio] 12.5 % 11.6-14.6 [facility] Erythrocyte distribution wid th standard deviationOrdered By: Marek Booker on 01-02-2025 Erythrocyte distribution width (RBC) [Ratio] 37.6 fl 35.1-43.9 [facility] Glomerular filtration rate ( GFR) estimation/1.73 sq m using serum, plasma, or whole bOrdered By: Marek Booker on 01-02-2025 GFR/1.73 sq M.predicted among non-blacks MDRD (S/P/Bld) [Vol rate/Area] 135 mL/min/{1.73_m2} >60 [facility] Comment on above: mL/min/1.73m2 CKD-EP I Creatinine Equation (2020) Hematocrit Auto (Bld) [Volum e fraction]Ordered By: Marek Booker on 01-02-2025 Hematocrit (Bld) [Volume fraction] 45.7 % 40-54 [facility] Hemoglobin measurementOrdere d By: Marek Booker on 01-02-2025 Hemoglobin (Bld) [Mass/Vol] 16.2 g/dL 13.0-16.5 [facility] Immature granulocytes/100 WB C Auto (Bld)Ordered By: Marek Booker on 01-02-2025 Immature granulocytes/100 WBC (Bld) 0.400 % 0.0-0.9 [facility] Comment on above: IG% - Immature Granu locytes (promyelocytes, myelocytes and metamyelocytes) > 1% indicates that a LEFT SHIFT is Present. MCV (mean corpuscular volume ) determinationOrdered By: Marek Booker on 01-02-2025 MCV (RBC) [Entitic vol] 82.2 fL 80-94 [facility] Mean corpuscular hemoglobin (MCH) determinationOrdered By: Marek Booker on 01-02-2025 MCH (RBC) [Entitic mass] 29.1 pg 27.0-32.0 [facility] Mean corpuscular hemoglobin concentration (MCHC) determinationOrdered By: Marek Booker on 01-02-2025 MCHC (RBC) [Mass/Vol] 35.4 g/dL 32-[address] [facility] Mean platelet volume determi nationOrdered By: Marek Booker on 01-02-2025 Platelet mean volume (Bld) [Entitic vol] 10.2 fL 6.2-12.0 [facility] Monocyte percentageOrdered B y: Marek Booker on 01-02-2025 Monocytes/100 WBC (Bld) 11.7 % High 0-10 [facility] Neutrophil percentageOrdered By: Marek Booker on 01-02-2025 Neutrophils/100 WBC (Bld) 71.1 % High 47-70 [facility] No Panel InformationOrdered By: Marek Booker on 01-02-2025 Urine Buprenorphine Qualitative Negative < 200 ng/mL [facility] Urine Oxycodone Screen Negative < 100 ng/mL [facility] Nucleated red blood cell per centageOrdered By: Marek Booker on 01-02-2025 Nucleated RBC/100 WBC (Bld) [Ratio] 0 % 0-5 [facility] Platelet countOrdered By: Pop Booker on 01-02-2025 Platelets (Bld) [#/Vol] 249 10*3/uL 150-450 [facility] Potassium measurement (mass/ volume)Ordered By: Marek Booker on 01-02-2025 Potassium (Unsp spec) [Mass/Vol] 3.7 mmol/L 3.3-5.1 [facility] Quantitative urine opiates m easurementOrdered By: Marek Booker on 01-02-2025 Opiates Ql (U) Negative < 300 ng/mL [facility] RBC Auto (Bld) [#/Vol]Ordere d By: Marek Booker on 01-02-2025 RBC (Bld) [#/Vol] 5.56 10*6/uL 4.6-6.2 [facility] Screening urine fentanyl jose surementOrdered By: Marek Booker on 01-02-2025 fentaNYL Screen Ql (U) Negative [facility] Serum creatinine measurement (mass/volume)Ordered By: Marek Booker on 01-02-2025 Creatinine [Mass/Vol] 0.72 mg/dL 0.70-1.[address] [facility] Serum glucose measurement (m ass/volume)Ordered By: Marek Booker on 01-02-2025 Glucose [Mass/Vol] 103 mg/dL High 70-99 [facility] Serum or plasma calcium rhona urement (mass/volume)Ordered By: Marek Booker on 01-02-2025 Calcium [Mass/Vol] 9.5 mg/dL 7.6-11.0 [facility] Serum or plasma ethanol rhona urement (mass/volume)Ordered By: Marek Booker on 01-02-2025 Ethanol [Mass/Vol] mg/dL <10.1 [facility] Comment on above: This test is for med ical purposes only. The legal definition of intoxication varies according to local law. Serum or plasma urea nitroge n measurement (mass/volume)Ordered By: Marek Booker on 01-02-2025 Urea nitrogen [Mass/Vol] 8 mg/dL 4-19 [facility] Sodium levelOrdered By: Tiarra Booker on 01-02-2025 Sodium [Moles/Vol] 140 mmol/L 133-145 [facility] Urine Drug Screen (VISTA)on 01-02-2025 AMPHETAMINES Negative Normal <1000 ng/mL [facility] Comment on above: Performed By: #### L 100.0100, L501.9100, L505.5000, L500.2500 #### [facility] [address] [place], [place], [id number] BARBITIURATES Negative Normal < 200 ng/mL [facility] Comment on above: Performed By: #### L 100.0100, L501.9100, L505.5000, L500.2500 #### [facility] [address] [place], [address] BENZODIAZIPINE Negative Normal < 200 ng/mL [facility] Comment on above: Performed By: #### L 100.0100, L501.9100, L505.5000, L500.2500 #### [facility] [address] [place], [address] BUP Ur Drug Scr Negative Normal < 200 ng/mL [facility] Comment on above: Performed By: #### L 100.0100, L501.9100, L505.5000, L500.2500 #### [facility] [address] [place], [address] COCAINE Negative Normal < 300 ng/mL [facility] Comment on above: Performed By: #### L 100.0100, L501.9100, L505.5000, L500.2500 #### [facility] [address] [place], [address] Fentanyl Negative Normal [facility] Comment on above: Performed By: #### L 100.0100, L501.9100, L505.5000, L500.2500 #### [facility] [address] [place], [address] METHADONE Negative Normal < 300 ng/mL [facility] Comment on above: Performed By: #### L 100.0100, L501.9100, L505.5000, L500.2500 #### [facility] [address] [place], [address] OPIATES Negative Normal < 300 ng/mL [facility] Comment on above: Performed By: #### L 100.0100, L501.9100, L505.5000, L500.2500 #### [facility] [address] [place], [address] OXYCODONE Negative Normal < 100 ng/mL [facility] Comment on above: Performed By: #### L 100.0100, L501.9100, L505.5000, L500.2500 #### [facility] [address] [place], [address] PCP Negative Normal < 25 ng/mL [facility] Comment on above: Performed By: #### L 100.0100, L501.9100, L505.5000, L500.2500 #### [facility] [address] [place], [address] THC Positive Normal < 50 ng/mL [facility] Comment on above: Result Comment: If c onfirmation testing is needed, a separate order will be required to send out testing to the reference laboratory. Performed By: #### L 100.0100, L501.9100, L505.5000, L500.2500 #### [facility] [address] [place], [place], [id number] Urine benzodiazepine levelOr dered By: Marek Booker on 01-02-2025 Benzodiazepines Ql (U) Negative < 200 ng/mL [facility] Urine cocaine levelOrdered B y: Marek Booker on 01-02-2025 Cocaine Ql (U) Negative < 300 ng/mL [facility] Urine oofkw-2-dajbxfsvxadwxz abinol (THC) measurementOrdered By: Marek Booker on 01-02-2025 Cannabinoids Screen Ql (U) Positive < 50 ng/mL [facility] Comment on above: If confirmation test ing is needed, a separate order will be required to send out testing to the reference laboratory. Urine phencyclidine (PCP) de tectionOrdered By: Marek Booker on 01-02-2025 Phencyclidine Ql (U) Negative < 25 ng/mL [facility] White blood cell (WBC) count Ordered By: Marek Booker on 01-02-2025 WBC (Bld) [#/Vol] 7.5 10*3/uL 4.4-11.0 [facility] Progress Noteon 08-20-2024 [employer] Authentication Interface Message Text Manny Mcnally is [...] wine, or any drink containing alcohol? Put "0" if none.: (Patient-Rptd) 0 2. Use any marijuana (cannabis, weed, oil, wax, or hash by smoking, vaping, dabbing, or in edibles) or "synthetic marijuana (like "K2," or "Spice")? Put "0" if none.: (Patient-Rptd) 5 3. Use anything else to get high (like other illegal drugs, pills, prescription or zjix-ggq-qcnarwo medications, and things that you sniff, maravilla, vape, or inject)? Put "0" if none.: (Patient-Rptd) 0 4. Use a vaping device* containing nicotine and/or flavors, or use any tobacco products^? Put "0" if none.: (Patient-Rptd) 1 5. Have you ever ridden in a CAR driven by someone (including yourself) who was "high" or had been using alcohol or drugs?: [...] office Subjective HPI Comments: Dr. Willingham at [facility]- no medications right now--> anxiety, depression, "mood stabilizer" Lives by himself. History of SI's- friends and family are close if problems. No SI's today Stomach issues "persistent"- "random vomiting" "diarrhea all the time" "stomach upset when eats" Gets a lot of mucous drainage He is unaccompanied. 18 YEAR WELL CHILD Education: Manny (more content not included)... [facility] Progress Noteon 08-14-2024 Blank[employer] Authentication Interface Message Text This is a [...] feeling lonely at times. Patient sees aunt "all the time." Patient reports having headaches with some frequency. Patient is unsure when things became more difficult. Patient has had some missed appointments. Patient has been able to sleep at bedtime. Patient discontinued medications. "I don't have the motivation to do anything. I felt the medications were not doing anything." Patient denies having thoughts of self-harm. "It's my motivation, that's the only thing. " "I have been pretty upbeat. "I am not depressed." "I see my therapist twice a week." Patient does not want to re-start medications. We discussed not discontinuing medications without medical supervision. Patient reports gaining a little weight, "but its been steady." No safety concerns. RISK ASSESSMENT Current Risk Level Low Acute Risk: History of past sqayfa-ya-ey- or suicidal thoughts;Protective factors outweigh risk factors [...] Attempt Date: Actual Lethality/Medical Damage: Potential Lethality: [email or web address] VITAL SIGNS & MENTAL [...] of Knowle (more content not included)... Normal [facility] Progress Noteon 04-25-2024 Blank[employer] Authentication Interface Message Text This is a [...] SESSION NOTES Patient reports doing well overall. "I like being on my own and stuff." Patient has some friends at school. Patient reports no concerns today. Sees family. No major concerns today. No safety concerns. Patient reports some OLIVER that we made a plan for. RISK ASSESSMENT Current Risk Level Low Acute Risk: History of past jsgtxk-rc-ll- or suicidal thoughts;Protective factors outweigh risk factors [...] Attempt Date: Actual Lethality/Medical Damage: Potential Lethality: [email or web address] VITAL SIGNS & MENTAL STATUS EXAM Wt Readings from Last 3 Encounters: 10/08/23 (!) 120.7 kg (>99%, Z= 2.71)* 01/22/23 (!) 136.2 kg (>99%, Z= 3.19)* 12/25/22 (!) 137 kg (>99%, Z= 3.22)* * Growth percentiles are based on [facility] (Boys, 2-20 Years) data. Temp Readings from [...] no attendance (more content not included)... Normal [facility] CNOVon 04-13-2024 CNOV Office Visit (UCWSTR ) -------- MANNY MCNALLY ([id number]) 5 M Date Time Provider Department 04/13/24 2:00 PM CHRISTOS OROZCO [facility] During your visit today, we recorded the following information about you: Temperature Pulse Respiration Blood pressure 98.1 degrees 65/minute 16/minute 132/84 Weight 124.6 kg Christos Orozco PA 04/13/2024 2:11 PM Signed This note was created using [employer]. Subjective Manny Mcnally is a 18 year [...] for 7 (more content not included)... Normal [facility] Progress Noteon 02-12-2024 Blanket Winder [employer] Authentication Interface Message Text This is a [...] NOTES Patient reports it can be overwhelming "if you let it be." Patient denies self-harm thoughts and is managing his own medications. He sees aunt who takes him grocery shopping. He sees sister, too. He goes to aunt's house as well. Patient has made friends in the home he is in. Mood-brown patient reports doing well. We discussed reducing polypharmacy. Patient is in his own apartment now. Patient denies getting as many headaches anymore. "It's probably the quiet." Patient denies having any obsessive thoughts. No relationships at this time. Patient is going to start a work-program Patient denies needing medication changes at this time. However, we discussed reducing Lamictal to reduce polypharmacy (vs lithium, unclear which / if any have been helpful). RISK ASSESSMENT Current Risk Level Low Acute Risk: History of past upflav-qt-rg- or suicidal thoughts;Protective factors outweigh risk factors [...] Attempt Date: Actual Lethality/Medical Damage: Potential Lethality: [email or web address] VITAL SIGNS & MENTAL STATUS EXAM Wt Readings from Last 3 Encounters: 10/08/23 (!) 120.7 kg (>99%, Z= 2.71)* 01/22/23 (!) 136.2 kg (>99%, Z= 3.19)* 12/25/22 (!) 137 kg (>99%, Z= 3.22)* * Growth percentiles are based on [facility] (Boys, 2-20 Years) data. Temp Readings from [...] appears av (more content not included)... Normal [facility] Progress Noteon 12-27-2023 Blanket Winder Helper Authentication Interface Message Text This is a telemedicine video visit requested by the patient that was performed with the patient's location at [facility] and the provider's location at home/office. [...] Level Low Acute Risk: History of past cltewi-ga-fn- or suicidal thoughts;Protective factors outweigh risk factors [...] Attempt Date: Actual Lethality/Medical Damage: Potential Lethality: [email or web address] VITAL SIGNS & MENTAL STATUS EXAM Wt Readings from Last 3 Encounters: 10/08/23 (!) 120.7 kg (>99%, Z= 2.71)* 01/22/23 (!) 136.2 kg (>99%, Z= 3.19)* 12/25/22 (!) 137 kg (>99%, Z= 3.22)* * Growth percentiles are based on [facility] (Boys, 2-20 Years) data. Temp Readings from [...] therapy: Yes (more content not included)... Normal [facility] Progress Noteon 11-29-2023 Blanket Winder Helper Authentication Interface Message Text This is a [...] NOTES Patient is at the new placement, "it's alright." Patient is getting along with others, "everyone but kid." Patient reports he thinks he is doing better. My trazodone, I still don't sleep when I take it. I think it makes me more depressed." Patient reports trazodone is not helping him. We discussed Seroquel for patient. No safety, sleep or appetite concerns. Patient wants to prioritize sleep. RISK ASSESSMENT Current Risk Level Low Acute Risk: History of past zgmucg-ao-ui- or suicidal thoughts;Protective factors outweigh risk factors [...] Attempt Date: Actual Lethality/Medical Damage: Potential Lethality: [email or web address] VITAL SIGNS & MENTAL STATUS EXAM Wt Readings from Last 3 Encounters: 10/08/23 (!) 120.7 kg (>99%, Z= 2.71)* 01/22/23 (!) 136.2 kg (>99%, Z= 3.19)* 12/25/22 (!) 137 kg (>99%, Z= 3.22)* * Growth percentiles are based on [facility] (Boys, 2-20 Years) data. Temp Readings from [...] Patient denie (more content not included)... Normal [facility] Progress Noteon 09-20-2023 Blanket Winder Helper Authentication Interface Message Text This is a telemedicine video visit requested by the patient/guardian that was performed with the patient's location at home and the provider's location at home or hospital office. 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 Patient can have headaches. Patient can have headaches throughout the day. No safety, appetite or sleep concerns. RISK ASSESSMENT Current Risk Level Low Acute Risk: History of past suttns-tk-dn- or suicidal thoughts;Protective factors outweigh risk factors [...] Attempt Date: Actual Lethality/Medical Damage: Potential Lethality: [email or web address] VITAL SIGNS & MENTAL STATUS EXAM [...] denied ref (more content not included)... Normal [facility] CBC W Auto Differential pane l (Bld)on 08-15-2023 Basophils (Bld) [#/Vol] 0.04 10*3/uL Normal <=0.70 [facility] Comment on above: Performed By: #### 5 7021-8 #### [facility] [address] [place], [place] [address] Missile Inspector - Demetra CORTEZ [id number] Basophils/100 WBC (Bld) 0.5 % Normal <=2.0 [facility] [place] Comment on above: Performed By: #### 5 7021-8 #### [facility] [address] [place] [address] Missile Inspector - Demetra LYLESIA [id number] Eosinophils (Bld) [#/Vol] 0.08 10*3/uL Normal <=0.70 [facility] Comment on above: Performed By: #### 5 7021-8 #### [place] [address] [place] [address] Missile Inspector - Demetra LYLESIA [id number] Eosinophils/100 WBC (Bld) 1.0 % Normal <=10.0 [facility] Comment on above: Performed By: #### 5 7021-8 #### [address] [place] [address] Missile Inspector - Demetra LYLESIA [id number] Erythrocyte distribution width (RBC) [Entitic vol] 40.0 fL Normal 35.1-43.9 [facility] Comment on above: Performed By: #### 5 7021-8 #### [place] [address] [place] [address] Missile Inspector - Demetra LYLESIA [id number] Hematocrit (Bld) [Volume fraction] 46.2 % Normal 40.0-54.0 [facility] Comment on above: Performed By: #### 5 7021-8 #### [address] [place] [address] Missile Inspector - Demetra LYLESIA [id number] Hemoglobin (Bld) [Mass/Vol] 16.0 g/dL Normal 14.0-18.0 [facility] Comment on above: Performed By: #### 5 7021-8 #### [place] [address] Director - Demetra LYLESIA [id number] Immature granulocytes (Bld) [#/Vol] 0.03 10*3/uL Normal <=0.10 [facility] Comment on above: Performed By: #### 5 7021-8 #### [address] [place] [address] Missile Inspector - Demetra LYLESIA [id number] Immature granulocytes/100 WBC (Bld) 0.40 % Normal <=1.50 [facility] Comment on above: Performed By: #### 5 7021-8 #### [place] [address] [place] [address] Missile Inspector - Demetra LYLESIA [id number] Lymphocytes (Bld) [#/Vol] 2.14 10*3/uL Normal 1.20-3.40 [facility] Comment on above: Performed By: #### 5 7021-8 #### [place] [address] [place] [address] Missile Inspector - Demetra LYLESIA [id number] Lymphocytes/100 WBC (Bld) 26.7 % Normal 20.0-40.0 [facility] Comment on above: Performed By: #### 5 7021-8 #### [place] [address] [place] [address] Missile Inspector - Demetra LYLESIA [id number] MCH (RBC) [Entitic mass] 28.4 pg Normal 27.0-31.0 [facility] Comment on above: Performed By: #### 5 7021-8 #### [place] [address] [place] [address] Missile Inspector - Demetra LYLESIA [id number] MCHC (RBC) [Mass/Vol] 34.6 g/dL Normal 32.0-36.0 [facility] Comment on above: Performed By: #### 5 7021-8 #### [place] [address] [place] [address] Missile Inspector - Demetra LYLESIA [id number] MCV (RBC) [Entitic vol] 81.9 fL Normal 80.0-100.0 [facility] [place] Comment on above: Performed By: #### 5 7021-8 #### [place] [address] [place] [address] Missile Inspector - Demetra Daniel CLIA [id number] Monocytes (Bld) [#/Vol] 0.58 10*3/uL Normal 0.10-0.60 [facility] Comment on above: Performed By: #### 5 7021-8 #### [address] [place] [address] Missile Inspector - Demetra Daniel CLIA [id number] Monocytes/100 WBC (Bld) 7.2 % Normal <=8.0 [facility] [place] Comment on above: Performed By: #### 5 7021-8 #### [place] [address] Missile Inspector - Demetra Daniel CLIA [id number] Neutrophils (Bld) [#/Vol] 5.14 10*3/uL Normal 1.40-6.50 [facility] Comment on above: Performed By: #### 5 7021-8 #### [address] [place] [address] Missile Inspector - Demetra Daniel CLIA [id number] Neutrophils/100 WBC (Bld) 64.2 % Normal 50.0-70.0 [facility] Comment on above: Performed By: #### 5 7021-8 #### [place] [address] Missile Inspector - Demetra Daniel CLIA [id number] Nucleated RBC (Bld) [#/Vol] 0.00 10*3/uL Normal <=0.10 [facility] Comment on above: Performed By: #### 5 7021-8 #### [place] [address] Missile Inspector - Demetra Daniel CLIA [id number] Platelet mean volume (Bld) [Entitic vol] 9.9 fL Normal 9.0-13.0 [facility] Comment on above: Performed By: #### 5 7021-8 #### [address] [place] [address] Missile Inspector - Demetra Daniel CLIA [id number] Platelets (Bld) [#/Vol] 304 10*3/uL Normal 130-400 [facility] Comment on above: Performed By: #### 5 7021-8 #### [facility] [address] [place] [address] Missile Inspector - Demetra CORTEZ [id number] RBC (Bld) [#/Vol] 5.64 10*6/uL Normal 4.00-6.30 [facility] Comment on above: Performed By: #### 5 7021-8 #### [facility] [address] [place] [address] Missile Inspector - Demetra CORTEZ [id number] WBC (Bld) [#/Vol] 8.01 10*3/uL Normal 4.80-10.80 [facility] Comment on above: Performed By: #### 5 7021-8 #### [facility] [address] [place] [address] Missile Inspector - Demetra CORTEZ [id number] Comprehensive metabolic 2000 panelon 08-15-2023 Albumin [Mass/Vol] 4.6 g/dL Normal 3.4-5.0 [facility] Comment on above: Performed By: #### 1 1579-0 #### [facility] [address] [place] [address] Missile Inspector - Demetra CORTEZ [id number] #### 07605-5 #### [facility] [address] [place] [address] Missile Inspector - Demetra CORTEZ [id number] Performed for [facility] [address] [place] [address] ALP [Catalytic activity/Vol] 144 U/L High 50-136 [facility] Comment on above: Performed By: #### 1 1579-0 #### [facility] [address] [place] [address] Missile Inspector - Demetra CORTEZ [id number] #### 93492-3 #### [facility] [address] [place] [address] Missile Inspector - Demetra CORTEZ [id number] Performed for [facility] [address] [place], [place] [address] ALT [Catalytic activity/Vol] 48 U/L Normal 16-63 [facility] Comment on above: Performed By: #### 1 1579-0 #### [facility] [address] [place], [place] [address] Missile Inspector - Demetra CORTEZ [id number] #### 71518-0 #### [facility] [address] [place], [place] [address] Missile Inspector - Demetra CORTEZ [id number] Performed for [facility] [address] [place], [place] [address] Anion gap [Moles/Vol] 8.0 mmol/L Normal <=15.0 [facility] Comment on above: Performed By: #### 1 1579-0 #### [facility] [address] [place], [place] [address] Missile Inspector - Demetra CORTEZ [id number] #### 53257-6 #### [facility] [address] [place], [place] [address] Missile Inspector - Demetra CORTEZ [id number] Performed for [facility] [address] [place], [place] [address] AST [Catalytic activity/Vol] 25 U/L Normal 15-37 [facility] Comment on above: Performed By: #### 1 1579-0 #### [facility] [address] [place], [place] [address] Missile Inspector - Demetra CORTEZ [id number] #### 64794-0 #### [facility] [address] [place], [place] [address] Missile Inspector - Demetra CORTEZ [id number] Performed for [facility] [address] [place], [place] [address] Bilirubin [Mass/Vol] 0.7 mg/dL Normal 0.2-1.0 [facility] Comment on above: Performed By: #### 1 1579-0 #### [facility] [address] [place], [place] [address] Missile Inspector - Demetra CORTEZ [id number] #### 34900-3 #### [facility] [address] [place] [address] Missile Inspector - Demetra CORTEZ [id number] Performed for [facility] [address] [place], [place] [address] Calcium [Mass/Vol] 9.7 mg/dL Normal 8.5-10.1 [facility] Comment on above: Performed By: #### 1 1579-0 #### [facility] [address] [place] [address] Missile Inspector - Demetra CORTEZ [id number] #### 26589-5 #### [facility] [address] [place] [address] Missile Inspector - Demetra CORTEZ [id number] Performed for [facility] [address] [place] [address] Chloride [Moles/Vol] 104 mmol/L Normal 98-107 [facility] Comment on above: Performed By: #### 1 1579-0 #### [facility] [address] [place] [address] Missile Inspector - Demetra CORTEZ [id number] #### 30556-2 #### [facility] [address] [place] [address] Missile Inspector - Demetra CORTEZ [id number] Performed for [facility] [address] [place], [place] [address] CO2 [Moles/Vol] 28 mmol/L Normal 21-32 [facility] Comment on above: Performed By: #### 1 1579-0 #### [facility] [address] [place] [address] Missile Inspector - Demetra CORTEZ [id number] #### 05976-6 #### [facility] [address] [place] [address] Missile Inspector - Demetra CORTEZ [id number] Performed for [facility] [address] [place] [address] Creatinine [Mass/Vol] 0.79 mg/dL Normal 0.67-1.17 [facility] Comment on above: Performed By: #### 1 1579-0 #### [facility] [address] [place] [address] Missile Inspector - Demetra CORTEZ [id number] #### 42582-6 #### [facility] [address] [place] [address] Missile Inspector - Demetra CORTEZ [id number] Performed for [facility] [address] [place] [address] GFR/1.73 sq M.predicted MDRD (S/P/Bld) [Vol rate/Area] Normal 59-N/A [facility] Comment on above: Performed By: #### 1 1579-0 #### [place] [address] [place] [address] Missile Inspector - Demetra CORTEZ [id number] #### 98298-3 #### [place] [address] [place] [address] Missile Inspector - Demetra CORTEZ [id number] Performed for [facility] [address] [place] [address] Glucose [Mass/Vol] 104 mg/dL Normal 74-106 [facility] Comment on above: Performed By: #### 1 1579-0 #### [facility] [address] [place] [address] Missile Inspector - Demetra CORTEZ [id number] #### 40653-7 #### [facility] [address] [place] [address] Missile Inspector - Demetra CORTEZ [id number] Performed for [facility] [address] [place] [address] HGFR GLOMERULAR FILTRATIO N RATE INTERPRETATION~The eGFR [...] months, with or without kidney damage.~ Normal [facility] Comment on above: Performed By: #### 1 1579-0 #### [facility] [address] [place] [address] Missile Inspector - Demetra CORTEZ [id number] #### 12914-5 #### [facility] [address] [place] [address] Missile Inspector - Demetra CORTEZ [id number] Performed for [facility] [address] [place] [address] Potassium [Moles/Vol] 3.8 mmol/L Normal 3.5-5.1 [facility] Comment on above: Performed By: #### 1 1579-0 #### [facility] [address] [place] [address] Missile Inspector - Demetra CORTEZ [id number] #### 04768-7 #### [facility] [address] [place] [address] Missile Inspector - Demetra CORTEZ [id number] Performed for [facility] [address] [place] [address] Protein [Mass/Vol] 7.7 g/dL Normal 6.4-8.2 [facility] Comment on above: Performed By: #### 1 1579-0 #### [facility] [address] [place] [address] Missile Inspector - Demetra CORTEZ [id number] #### 58739-8 #### [facility] [address] [place] [address] Missile Inspector - Demetra CORTEZ [id number] Performed for [facility] [address] [place] [address] Sodium [Moles/Vol] 140 mmol/L Normal 136-145 [facility] Comment on above: Performed By: #### 1 1579-0 #### [facility] [address] [place] [address] Missile Inspector - Demetra CORTEZ [id number] #### 31782-3 #### [facility] [address] [place] [address] Missile Inspector - Demetra CORTEZ [id number] Performed for [facility] [address] [place] [address] Urea nitrogen [Mass/Vol] 10 mg/dL Normal 9-20 [facility] Comment on above: Performed By: #### 1 1579-0 #### [facility] [address] [place] [address] Missile Inspector - Demetra CORTEZ [id number] #### 67919-7 #### [facility] [address] [place] [address] Missile Inspector - Demetra CORTEZ [id number] Performed for [facility] [address] [place], [place] [address] LITHIUMon 08-15-2023 [place] [Moles/Vol] 0.5 mmol/L Low 0.6-1.2 [facility] Comment on above: Performed By: #### 1 1579-0 #### [facility] [address] [place] [address] Missile Inspector - Demetra CORTEZ [id number] #### 07712-3 #### [facility] [address] [place] [address] Missile Inspector - Demetra CORTEZ [id number] Performed for [facility] [address] [place] [address] TSH DL <= 0.05 mIU/L Qnon TSH Qn 1.680 uIU/mL Normal 0.358-3.740 [facility] Comment on above: Performed By: #### 1 1579-0 #### [facility] [address] [place] [address] Missile Inspector - Demetra CORTEZ [id number] #### 62626-4 #### [facility] [address] [place] [address] Missile Inspector - Demetra De Leonrell DIEGO [id number] Performed for [facility] [address] [place] [address] Urinalysis panel Auto (U)on 08-15-2023 Bacteria LM Ql (Urine sed) Normal TRACE [facility] Comment on above: Performed By: #### 5 0564-4 #### [facility] [address] [place] [address] Missile Inspector - Demetra CORTEZ [id number] Performed for [facility] [address] [place] [address] Bilirubin (U) [Mass/Vol] Negative Normal NEGATIVE [facility] Comment on above: Performed By: #### 5 0564-4 #### [facility] [address] [place] [address] Missile Inspector - Demetra CORTEZ [id number] Performed for [facility] [address] [place] [address] Clarity (U) CLEAR Normal CLEAR [facility] Comment on above: Performed By: #### 5 0564-4 #### [facility] [address] [place] [address] Missile Inspector - Demetra CORTEZ [id number] Performed for [facility] [address] [place], [place] [address] Color (U) YELLOW Normal YELLOW [facility] Comment on above: Performed By: #### 5 0564-4 #### [facility] [address] [place] [address] Missile Inspector - Demetra CORTEZ [id number] Performed for [facility] [address] [place] [address] Glucose Test strip (U) [Mass/Vol] Negative Normal NEGATIVE [facility] Comment on above: Performed By: #### 5 0564-4 #### [facility] [address] [place] [address] Missile Inspector - Demetra CORTEZ [id number] Performed for [facility] [address] [place], [place] [address] HMICRO MICROSCOPIC Normal [facility] Comment on above: Performed By: #### 5 0564-4 #### [facility] [address] [place], [place] [address] Missile Inspector - Demetra CORTEZ [id number] Performed for [facility] [address] [place], [place] [address] Hyaline casts (Urine sed) [#/Area] Normal 0-8 [facility] Comment on above: Performed By: #### 5 0564-4 #### [facility] [address] [place] [address] Missile Inspector - Demetra CORTEZ [id number] Performed for [facility] [address] [place], [place] [address] Ketones (U) [Mass/Vol] TRACE Abnormal NEGATIVE [facility] Comment on above: Performed By: #### 5 0564-4 #### [facility] [address] [place] [address] Missile Inspector - Demetra CORTEZ [id number] Performed for [facility] [address] [place], [place] [address] Leukocyte esterase Qn (U) Negative Normal TRACE [facility] Comment on above: Performed By: #### 5 0564-4 #### [facility] [address] [place], [place] [address] Missile Inspector - Demetra CORTEZ [id number] Performed for [facility] [address] [place], [place] [address] Nitrite Ql (U) Negative Normal NEGATIVE [facility] Comment on above: Performed By: #### 5 0564-4 #### [facility] [address] [place], [place] [address] Missile Inspector - Demetra CORTEZ [id number] Performed for [facility] [address] [place], [place] [address] pH (U) 6.5 [pH] Normal 5.5-7.5 [facility] Comment on above: Performed By: #### 5 0564-4 #### [facility] [address] [place], [place] [address] Missile Inspector - Demetra CORTEZ [id number] Performed for [facility] [address] [place], [place] [address] Protein (U) [Mass/Vol] Negative Normal NEGATIVE [facility] Comment on above: Performed By: #### 5 0564-4 #### [facility] [address] [place], [place] [address] Missile Inspector - Demetra CORTEZ [id number] Performed for [facility] [address] [place], [place] [address] RBC (U) [#/Vol] Negative Normal NEGATIVE [facility] Comment on above: Performed By: #### 5 0564-4 #### [facility] [address] [place], [place] [address] Missile Inspector - Demetra CORTEZ [id number] [facility] [facility] [address] [place], [place] [address] RBC LM.HPF (Urine sed) [#/Area] Normal 0-4 [facility] Comment on above: Performed By: #### 5 0564-4 #### [facility] [address] [place] [address] Missile Inspector - Demetra CORTEZ [id number] Performed for [facility] [address] [place], [place] [address] Specific gravity (U) [Rel density] 1.023 Normal 1.010-1.035 [facility] Comment on above: Performed By: #### 5 0564-4 #### [facility] [address] [place], [place] [address] Missile Inspector - Demetra CORTEZ [id number] Performed for [facility] [address] [place], [place] [address] SQUAMOUS EPITHELIALS Normal 0-5 [facility] Comment on above: Performed By: #### 5 0564-4 #### [facility] [address] [place] [address] Missile Inspector - Demetra CORTEZ [id number] Performed for [facility] [address] [place] [address] Urobilinogen Qn (U) 0.2 {Trevon'U}/dL Normal <=1.0 [facility] Comment on above: Performed By: #### 5 0564-4 #### [facility] [address] [place] [address] Missile Inspector - Demetra LYLESIA [id number] Performed for [facility] [address] [place] [address] WBC LM.HPF (Urine sed) [#/Area] Normal 0-5 [facility] Comment on above: Performed By: #### 5 0564-4 #### [facility] [address] [place] [address] Missile Inspector - Demetra CORTEZ [id number] Performed for [place] [address] [address] [place] [address] LUMBAR WITH OBLIQUESon 05-30 LUMBAR WITH OBLIQUES EXAM: LUMBAR WITH OBLIQUES HISTORY: Low back pain COMPARISON: None. TECHNIQUE: 5 views FINDINGS: Satisfactory alignment. Maintained vertebral body heights and disc spaces. No acute fracture or subluxation. Unremarkable soft tissues. IMPRESSION: Unremarkable exam. Normal [facility] CBC W Auto Differential pane l (Bld)on 03-22-2023 Basophils (Bld) [#/Vol] 0.05 10*3/uL Normal <=0.70 [facility] Comment on above: Performed By: #### 5 7021-8 #### [facility] [address] [place] [address] Missile Inspector - Demetra CORTEZ [id number] Basophils/100 WBC (Bld) 0.7 % Normal <=2.0 [facility] [place] Comment on above: Performed By: #### 5 7021-8 #### [facility] [address] [place] [address] Missile Inspector - Demetra CORTEZ [id number] Eosinophils (Bld) [#/Vol] 0.14 10*3/uL Normal <=0.70 [facility] Comment on above: Performed By: #### 5 7021-8 #### [facility] [address] [place] [address] Missile Inspector - Demetra LYLESIA [id number] Eosinophils/100 WBC (Bld) 2.0 % Normal <=10.0 [facility] Comment on above: Performed By: #### 5 7021-8 #### [facility] [address] [place] [address] Missile Inspector - Demetra LYLESIA [id number] Erythrocyte distribution width (RBC) [Entitic vol] 39.7 fL Normal 35.1-43.9 [facility] Comment on above: Performed By: #### 5 7021-8 #### [place] [address] [place] [address] Missile Inspector - Demetra LYLESIA [id number] Hematocrit (Bld) [Volume fraction] 44.2 % Normal 40.0-54.0 [facility] Comment on above: Performed By: #### 5 7021-8 #### [facility] [address] [place] [address] Missile Inspector - Demetra LYLESIA [id number] Hemoglobin (Bld) [Mass/Vol] 14.7 g/dL Normal 14.0-18.0 [facility] Comment on above: Performed By: #### 5 7021-8 #### [place] [address] Director - Demetra LYLESIA [id number] Immature granulocytes (Bld) [#/Vol] 0.01 10*3/uL Normal <=0.10 [facility] Comment on above: Performed By: #### 5 7021-8 #### [facility] [address] Director - Demetra LYLESIA [id number] Immature granulocytes/100 WBC (Bld) 0.10 % Normal <=1.50 [facility] Comment on above: Performed By: #### 5 7021-8 #### [place] [address] Director - Demetra CORTEZ [id number] Lymphocytes (Bld) [#/Vol] 2.27 10*3/uL Normal 1.20-3.40 [facility] Comment on above: Performed By: #### 5 7021-8 #### [facility] [address] [place] [address] Missile Inspector - Demetra LYLESIA [id number] Lymphocytes/100 WBC (Bld) 32.5 % Normal 20.0-40.0 [facility] Comment on above: Performed By: #### 5 7021-8 #### [address] [place] [address] Missile Inspector - Demetra CORTEZ [id number] MCH (RBC) [Entitic mass] 27.9 pg Normal 27.0-31.0 [facility] Comment on above: Performed By: #### 5 7021-8 #### [place] [address] [place] [address] Missile Inspector - Demetra LYLESIA [id number] MCHC (RBC) [Mass/Vol] 33.3 g/dL Normal 32.0-36.0 [facility] Comment on above: Performed By: #### 5 7021-8 #### [address] [place] [address] Missile Inspector - Demetra LYLESIA [id number] MCV (RBC) [Entitic vol] 84.0 fL Normal 80.0-100.0 [facility] [place] Comment on above: Performed By: #### 5 7021-8 #### [facility] [address] [place] [address] Missile Inspector - Demetra LYLESIA [id number] Monocytes (Bld) [#/Vol] 0.69 10*3/uL High 0.10-0.60 [facility] Comment on above: Performed By: #### 5 7021-8 #### [place] [address] [place] [address] Missile Inspector - Demetra LYLESIA [id number] Monocytes/100 WBC (Bld) 9.9 % High <=8.0 [facility] [place] Comment on above: Performed By: #### 5 7021-8 #### [place] [address] [facility] [place] [address] Missile Inspector - Demetra LYLESIA [id number] Neutrophils (Bld) [#/Vol] 3.83 10*3/uL Normal 1.40-6.50 [facility] Comment on above: Performed By: #### 5 7021-8 #### [address] [place] [address] Missile Inspector - Demetra Daniel CLIA [id number] Neutrophils/100 WBC (Bld) 54.8 % Normal 50.0-70.0 [facility] Comment on above: Performed By: #### 5 7021-8 #### [address] [place] [address] Missile Inspector - Demetra Daniel CLIA [id number] Nucleated RBC (Bld) [#/Vol] 0.00 10*3/uL Normal <=0.10 [facility] Comment on above: Performed By: #### 5 7021-8 #### [address] [place] [address] Missile Inspector - Demetra LYLESIA [id number] Platelet mean volume (Bld) [Entitic vol] 10.0 fL Normal 9.0-13.0 [facility] Comment on above: Performed By: #### 5 7021-8 #### [address] [place] [address] Missile Inspector - Demetra LYLESIA [id number] Platelets (Bld) [#/Vol] 317 10*3/uL Normal 130-400 [facility] Comment on above: Performed By: #### 5 7021-8 #### [address] [place] [address] Missile Inspector - Demetra LYLESIA [id number] RBC (Bld) [#/Vol] 5.26 10*6/uL Normal 4.00-6.30 [facility] Comment on above: Performed By: #### 5 7021-8 #### [facility] [address] [place] [address] Missile Inspector - Demetra CORTEZ [id number] WBC (Bld) [#/Vol] 6.99 10*3/uL Normal 4.80-10.80 [facility] Comment on above: Performed By: #### 5 7021-8 #### [facility] [address] [place] [address] Missile Inspector - Demetra CORTEZ [id number] Comprehensive metabolic 2000 panelon 03-22-2023 Albumin [Mass/Vol] 4.2 g/dL Normal 3.4-5.0 [facility] Comment on above: Performed By: #### 2 4323-8 #### [facility] [address] [place] [address] Missile Inspector - Demetra LYLESIA [id number] Performed for [facility] [address] [place] [address] #### 39688-0 #### [facility] [address] [place] [address] Missile Inspector - Demetra CORTEZ [id number] ALP [Catalytic activity/Vol] 127 U/L Normal 50-136 [facility] Comment on above: Performed By: #### 2 4323-8 #### [facility] [address] [place] [address] Missile Inspector - Demetra LYLESIA [id number] Performed for [facility] [address] [place] [address] #### 32535-5 #### [facility] [address] [place] [address] Missile Inspector - Demetra CORTEZ [id number] ALT [Catalytic activity/Vol] 114 U/L High 16-63 [facility] Comment on above: Performed By: #### 2 4323-8 #### [facility] [address] [place] [address] Missile Inspector - Demetra LYLESIA [id number] Performed for [facility] [address] [place] [address] #### 05384-1 #### [facility] [address] [place] [address] Missile Inspector - Demetra LYLESIA [id number] Anion gap [Moles/Vol] 6.1 mmol/L Normal <=15.0 [facility] Comment on above: Performed By: #### 2 4323-8 #### [facility] [address] [place] [address] Missile Inspector - Demetra LYLESIA [id number] Performed for [facility] [address] [place] [address] #### 39279-0 #### [facility] [address] [place] [address] Missile Inspector - Demetra LYLESIA [id number] AST [Catalytic activity/Vol] 51 U/L High 15-37 [facility] Comment on above: Performed By: #### 2 4323-8 #### [facility] [address] [place] [address] Missile Inspector - Demetra LYLESIA [id number] Performed for [facility] [address] [place] [address] #### 47829-0 #### [facility] [address] [place] [address] Missile Inspector - Demetra LYLESIA [id number] Bilirubin [Mass/Vol] 0.5 mg/dL Normal 0.2-1.0 [facility] Comment on above: Performed By: #### 2 4323-8 #### [facility] [address] [place] [address] Missile Inspector - Demetra LYLESIA [id number] Performed for [facility] [address] [place] [address] #### 30702-3 #### [facility] [address] [place] [address] Missile Inspector - Demetra LYLESIA [id number] Calcium [Mass/Vol] 8.9 mg/dL Normal 8.5-10.1 [facility] Comment on above: Performed By: #### 2 4323-8 #### [facility] [address] [place] [address] Missile Inspector - Demetra LYLESIA [id number] Performed for [facility] [address] [place] [address] #### 07125-8 #### [facility] [address] [place] [address] Missile Inspector - Demetra Daniel CLIA [id number] Chloride [Moles/Vol] 107 mmol/L Normal 98-107 [facility] Comment on above: Performed By: #### 2 4323-8 #### [facility] [address] [place] [address] Missile Inspector - Demetra LYLESIA [id number] Performed for [facility] [address] [place] [address] #### 63881-6 #### [facility] [address] [place] [address] Missile Inspector - Demetra LYLESIA [id number] CO2 [Moles/Vol] 27 mmol/L Normal 21-32 [facility] Comment on above: Performed By: #### 2 4323-8 #### [facility] [address] [place] [address] Missile Inspector - Demetra Daniel CLIA [id number] Performed for [facility] [address] [place] [address] #### 73054-9 #### [facility] [address] [place] [address] Missile Inspector - Demetra LYLESIA [id number] Creatinine [Mass/Vol] 0.68 mg/dL Normal 0.67-1.17 [facility] Comment on above: Performed By: #### 2 4323-8 #### [facility] [address] [place] [address] Missile Inspector - Demetra LYLESIA [id number] Performed for [facility] [address] [place] [address] #### 20912-9 #### [facility] [address] [place] [address] Missile Inspector - Demetra CORTEZ [id number] GFR/1.73 sq M.predicted MDRD (S/P/Bld) [Vol rate/Area] Normal 59-N/A [facility] Comment on above: Performed By: #### 2 4323-8 #### [facility] [address] [place] [address] Missile Inspector - Demetra CORTEZ [id number] Performed for [facility] [address] [place] [address] #### 88548-8 #### [facility] [address] [place] [address] Missile Inspector - Demetra CORTEZ [id number] Glucose [Mass/Vol] 101 mg/dL Normal 74-106 [facility] Comment on above: Performed By: #### 2 4323-8 #### [facility] [address] [place] [address] Missile Inspector - Demetra CORTEZ [id number] Performed for [facility] [address] [place] [address] #### 98955-0 #### [facility] [address] [place] [address] Missile Inspector - Demetra CORTEZ [id number] HGFR GLOMERULAR FILTRATIO N RATE INTERPRETATION~The eGFR [...] months, with or without kidney damage.~ Normal [facility] Comment on above: Performed By: #### 2 4323-8 #### [facility] [address] [place] [address] Missile Inspector - Demetra LYLESIA [id number] Performed for [facility] [address] [place] [address] #### 00587-9 #### [facility] [address] [place] [address] Missile Inspector - Demetra LYLESIA [id number] Potassium [Moles/Vol] 3.9 mmol/L Normal 3.5-5.1 [facility] Comment on above: Performed By: #### 2 4323-8 #### [facility] [address] [place] [address] Missile Inspector - Demetra LYLESIA [id number] Performed for [facility] [address] [place] [address] #### 76789-8 #### [facility] [address] [place] [address] Missile Inspector - Demetra LYLESIA [id number] Protein [Mass/Vol] 7.1 g/dL Normal 6.4-8.2 [facility] Comment on above: Performed By: #### 2 4323-8 #### [facility] [address] [place] [address] Missile Inspector - Demetra LYLESIA [id number] Performed for [facility] [address] [place] [address] #### 72475-6 #### [facility] [address] [place] [address] Missile Inspector - Demetra LYLESIA [id number] Sodium [Moles/Vol] 140 mmol/L Normal 136-145 [facility] Comment on above: Performed By: #### 2 4323-8 #### [facility] [address] [place] [address] Missile Inspector - Demetra LYLESIA [id number] Performed for [facility] [address] [place] [address] #### 53539-6 #### [facility] [address] [place] [address] Missile Inspector - Demetra [facility] [id number] Urea nitrogen [Mass/Vol] 10 mg/dL Normal 05-23 [facility] Comment on above: Performed By: #### 2 4323-8 #### [facility] [address] [place] [address] Missile Inspector - [place] [id number] Performed for [facility] [address] [place] [address] #### 34979-2 #### [facility] [address] [place] [address] [facility] [id number] LITHIUMon 03-22-2023 [place] [Moles/Vol] 0.4 mmol/L Low 0.6-1.2 [facility] Comment on above: Performed By: #### 1 4334-7 #### [facility] [address] [place] [address] [facility] [id number] TSH DL <= 0.05 mIU/L Qnon TSH Qn 3.200 uIU/mL Normal 0.358-3.740 [facility] Comment on above: Performed By: #### 2 4323-8 #### [facility] [address] [place] [address] Missile Inspector - [place] [id number] Performed for [facility] [address] [place] [address] #### 05757-7 #### [facility] [address] [place] [address] Missile Inspector - [place] [id number] Urinalysis panel Auto (U)on 03-22-2023 Bacteria LM.HPF (Urine sed) [#/Area] Negative Normal TRACE [facility] Comment on above: Performed By: #### 5 0564-4 #### [facility] [address] [place] [address] Missile Inspector - Demetra LYLESIA [id number] Bilirubin Ql (U) Negative Normal NEGATIVE [facility] Comment on above: Performed By: #### 5 0564-4 #### [facility] [address] [place] [address] Missile Inspector - Demetra LYLESIA [id number] Clarity (U) CLEAR Normal CLEAR [facility] Comment on above: Performed By: #### 5 0564-4 #### [facility] [address] [place] [address] Missile Inspector - Demetra LYLESIA [id number] Color (U) DK YELLOW Abnormal YELLOW [facility] Comment on above: Performed By: #### 5 0564-4 #### [facility] [address] [place] [address] Missile Inspector - Demetra LYLESIA [id number] Glucose Ql (U) Negative Normal NEGATIVE [facility] Comment on above: Performed By: #### 5 0564-4 #### [facility] [address] [place] [address] Missile Inspector - Demetra LYLESIA [id number] Hemoglobin Ql (U) Negative Normal NEGATIVE [facility] Comment on above: Performed By: #### 5 0564-4 #### [facility] [address] [place] [address] Missile Inspector - Demetra LYLESIA [id number] HMICRO MICROSCOPIC Normal [facility] Comment on above: Performed By: #### 5 0564-4 #### [facility] [address] [place] [address] Missile Inspector - Demetra CORTEZ [id number] Hyaline casts (Urine sed) [#/Area] 0-8 Normal 0-8 [facility] Comment on above: Performed By: #### 5 0564-4 #### [facility] [address] [place] [address] Missile Inspector - Demetra LYLESIA [id number] KETONE 1+ Abnormal NEGATIVE [facility] Comment on above: Performed By: #### 5 0564-4 #### [facility] [address] [place] [address] Missile Inspector - Demetra LYLESIA [id number] Leukocyte esterase Test strip Ql (U) Negative Normal TRACE [facility] Comment on above: Performed By: #### 5 0564-4 #### [facility] [address] [place] [address] Missile Inspector - Demetra LYLESIA [id number] Nitrite Ql (U) Negative Normal NEGATIVE [facility] Comment on above: Performed By: #### 5 0564-4 #### [facility] [address] [place] [address]. [place] [address] Missile Inspector - Demetra LYLESIA [id number] pH (U) 6.0 [pH] Normal 5.5-7.5 [facility] Comment on above: Performed By: #### 5 0564-4 #### [address] [place] [address] Missile Inspector - Demetra LYLESIA [id number] Protein Ql (U) TRACE Abnormal NEGATIVE [facility] Comment on above: Performed By: #### 5 0564-4 #### [facility] [address] [place] [address]. [place] [address] Missile Inspector - Demetra CORTEZ [id number] RBC LM.HPF (Urine sed) [#/Area] 0-4 Normal 0-4 [facility] Comment on above: Performed By: #### 5 0564-4 #### [facility] [address] [place] [address]. [place] [address] Missile Inspector - Demetra LYLESIA [id number] Specific gravity (U) [Rel density] 1.034 Normal 1.010-1.035 [facility] Comment on above: Performed By: #### 5 0564-4 #### [facility] [address] [place] [address]. [place] [address] Missile Inspector - Demetra LYLESIA [id number] SQUAMOUS EPITHELIALS 0-5 Normal 0-5 [facility] Comment on above: Performed By: #### 5 0564-4 #### [facility] [address] [place] [address] Missile Inspector - Demetra CORTEZ [id number] Urobilinogen Qn (U) 1.0 {Trevon'U}/dL Normal <=1.0 [facility] Comment on above: Performed By: #### 5 0564-4 #### [facility] [address] [place] [address] Missile Inspector - [place] [id number] WBC LM.HPF (Urine sed) [#/Area] 0-5 Normal 0-5 [facility] Comment on above: Performed By: #### 5 0564-4 #### [facility] [address] [place] [address] Missile Inspector - Demetra Danielhood CORTEZ [id number] XR Chest PA and Lateralon IMPRESSION: Left lower lobe opacity concerning for possible pneumonia. However, overlying soft tissues could result in a similar appearance. Correlation recommended. Entrepreneur: [facility] CENTER[facility]iguel Angel Transcribe Date/Time: Jan 24 2023 12:03P Dictated by : JUANITO MONK MD This examination was interpreted and the report reviewed and electronically signed by: JUANITO MONK MD on Jan 24 2023 12:05PM [facility] DIVISION OF RADIOLOGY * * *Final [...] soft tissues: Unremarkable. DIVISION OF RADIOLOGY Provider, Purnima Herman Zhou - 01/24/2023 * * *Final Report* * [...] result in a similar appearance. Correlation recommended. Entrepreneur: MARTINA Transcribe Date/Time: Jan 24 2023 12:03P Dictated by : JUANITO MONK MD This examination was interpreted and the report reviewed and electronically signed by: JUANITO MONK MD on Jan 24 2023 12:05PM EST [facility] Radiology Study observation (narrative) [facility] XR Chest PA and LateralOrder ed By: [facility] Provider on 01-24-2023 [facility] Absolute lymphocyte countOrd ered By: Dr. Santo on 12-26-2022 Lymphocytes Auto (Unsp spec) [#/Vol] 2.02 10*3/uL 0.83-4.51 [facility] Basophil percentageOrdered B y: Dr. Santo on 12-26-2022 Basophils/100 WBC (Bld) 0.5 % 0-1 [facility] Chloride [Moles/Vol] 108 mmol/L 98-107 [facility] Eosinophils/100 WBC (Bld) 1.4 % 0-3 [facility] Glucose [Mass/Vol] 118 mg/dL 74-106 [facility] Comment on above: Fasting Glucose resu lt from 100 to 125 mg/dL suggests IMPAIRED HOMEOSTASIS per A.D.A. criteria. Neutrophils (Bld) [#/Vol] 5.6 10*3/uL 2.0-7.7 [facility] Neutrophils/100 WBC (Bld) 64.9 % 34-64 [facility] Potassium [Moles/Vol] 3.4 mmol/L 3.5-5.[address] [facility] Sodium [Moles/Vol] 140 mmol/L 136-145 [facility] WBC (Bld) [#/Vol] 8.6 10*3/uL 4.5-13.0 [facility] Blood erythrocytes count (nu mber/volume)Ordered By: Dr. Santo on 12-26-2022 RBC (Bld) [#/Vol] 5.23 10*6/uL 4.5-5.1 [facility] Blood hemoglobin measurement (mass/volume)Ordered By: Dr. Santo on 12-26-2022 Hemoglobin (Bld) [Mass/Vol] 14.9 g/dL 13.0-16.5 [facility] Blood lymphocytes/100 leukoc ytesOrdered By: Dr. Santo on 12-26-2022 Lymphocytes/100 WBC (Bld) 23.6 % 25-45 [facility] Blood monocytes/100 leukocyt esOrdered By: Dr. Santo on 12-26-2022 Monocytes/100 WBC (Bld) 9.0 % 3-6 [facility] Blood platelet mean volumeOr dered By: Dr. Santo on 12-26-2022 Platelet mean volume (Bld) [Entitic vol] 10.2 fL 6.2-12.0 [facility] COVID-19 virus antigen assay Ordered By: Dr. Santo on 12-26-2022 SARS-CoV-2 (COVID-19) Ag IA.rapid Ql (Resp) [facility] Determination of erythrocyte mean corpuscular volume (MCV)Ordered By: Dr. Santo on 12-26-2022 MCV (RBC) [Entitic vol] 85.3 fL 78-96 [facility] Hematocrit Auto (Bld) [Volum e fraction]Ordered By: Dr. Santo on 12-26-2022 Hematocrit (Bld) [Volume fraction] 44.6 % 36-47 [facility] Laboratory - Chemistry and C hemistry - challengeOrdered By: Dr. Santo on 12-26-2022 CO2 [Moles/Vol] 26.0 mmol/L 21.0-32.0 [facility] Urea nitrogen/Creatinine [Mass ratio] 14.9 mg/mg 10-20 [facility] Laboratory - Drug toxicology Ordered By: Dr. Santo on 12-26-2022 Amphetamines Ql (U) Negative <1000 ng/mL [facility] Benzodiazepines Ql (U) Negative < 200 ng/mL [facility] Cannabinoids Screen Ql (U) Negative < 50 ng/mL [facility] Cocaine Ql (U) Negative < 300 ng/mL [facility] Opiates Ql (U) Negative < 300 ng/mL [facility] Laboratory - Hematology and Cell countsOrdered By: Dr. Santo on 12-26-2022 Erythrocyte distribution width (RBC) [Entitic vol] 40.1 fL 35.1-43.9 [facility] Erythrocyte distribution width (RBC) [Ratio] 12.9 % 11.6-14.6 [facility] Immature granulocytes/100 WBC (Bld) 0.600 % 0.0-0.9 [facility] Comment on above: IG% - Immature Granu locytes (promyelocytes, myelocytes and metamyelocytes) > 1% indicates that a LEFT SHIFT is Present. MCH (RBC) [Entitic mass] 28.5 pg 25.0-35.0 [facility] Nucleated RBC/100 WBC (Bld) [Ratio] 0 % 0-5 [facility] MCHC Auto (RBC) [Mass/Vol]Or dered By: Dr. Santo on 12-26-2022 MCHC (RBC) [Mass/Vol] 33.4 g/dL 32-[address] [facility] No Panel InformationOrdered By: Dr. Santo on 12-26-2022 Estimated Creatinine Clearance Calc 192.00 ml/min [facility] Estimated GFR (MDRD) er [facility] Comment on above: Test not performedAf rican [place] GFR Calc Estimated GFR (MDRD) Non-Af [facility] Comment on above: Test not performedNo n- GFR Calc Ethyl Alcohol Level < 3.0 mg/dL [facility] Comment on above: The serum:whole bloo d ethanol ratio is approximately 1.14and varies slightly with hematocrit. Medical Alcohol reference interval and critical value innon-tolerant individuals; 50 - 100 Impairment 100 Intoxication 100 - 250 Severe Poisoning 250 - 400 Deep/possible fatal coma MDMA (Ecstasy) Screen Negative < 500 ng/mL [facility] Urine Barbiturates Screen Negative < 200 ng/mL [facility] Urine Drug Screen Comment [facility] Comment on above: CONFIRMATORY TESTING FOR [...] Methadone Screen Negative < 300 ng/mL [facility] Platelets bldOrdered By: Dr. Santo on 12-26-2022 Platelets (Bld) [#/Vol] 325 10*3/uL 150-450 [facility] Serum or plasma calcium rhona urement (mass/volume)Ordered By: Dr. Santo on 12-26-2022 Calcium [Mass/Vol] 9.0 mg/dL 8.5-10.1 [facility] Serum or plasma creatinine m easurement (mass/volume)Ordered By: Dr. Santo on 12-26-2022 Creatinine [Mass/Vol] 0.67 mg/dL 0.70-1.[address] [facility] Comment on above: The validity of the calculated GFR & GFRAA in patients over 70 years has not been determined. Clinical correlation is essential. Serum or plasma urea nitroge n measurement (mass/volume)Ordered By: Dr. Santo on 12-26-2022 Urea nitrogen [Mass/Vol] 10 mg/dL 7-18 [facility] Thin prep Papanicolaou smear with manual screeningOrdered By: Dr. Santo on 12-26-2022 Thin prep Papanicolaou smear with manual screening 6 5-15 [facility] Urine phencyclidine (PCP) de tectionOrdered By: Dr. Santo on 12-26-2022 Phencyclidine Ql (U) Negative < 25 ng/mL [facility] Drugs of Abuse with THC, uri [place] 08-06-2022 Amphetamines, Ur Negative Negative [facility] Comment on above: Threshold = 1000 ng/ mL Barbiturates, Ur Negative Negative [facility] Comment on above: Threshold = 200 ng/m L Benzodiazepines, Ur Negative Negative [facility] Comment on above: Threshold = 200 ng/m L Cocaine Negative Negative [facility] Comment on above: Threshold = 300 ng/m L Methadone, Ur Negative Negative [facility] Comment on above: Threshold = 300 ng/m L Opiates Negative Negative [facility] Comment on above: Threshold = 300 ng/m L PCP-Phencyclidine Negative Negative [facility] Comment on above: Threshold = 25 ng/mL THC,50,Urine Negative Negative [facility] Comment on above: Threshold = 50 ng/mL Note: This testing is intended for medical management and treatment only. Analysis performed using non-forensic (screening/non-confirmatory) procedures. Reason for preventin g automatic release->Other Release to patient->Manual release only [facility] Absolute lymphocyte counton 06-28-2022 Lymphocytes Auto (Unsp spec) [#/Vol] 2.06 10*3/uL 0.83-4.51 [facility] Work Phone: Basophil percentageon 2021 Basophils/100 WBC (Bld) 0.5 % 0-1 [facility] Work Phone: Chloride [Moles/Vol] 107 mmol/L 98-107 [facility] Work Phone: Eosinophils/100 WBC (Bld) 0.4 % 0-3 [facility] Work Phone: Glucose [Mass/Vol] 101 mg/dL 74-106 [facility] Work Phone: Comment on above: Fasting Glucose resu lt from 100 to 125 mg/dL suggests IMPAIRED HOMEOSTASIS per A.D.A. criteria. Neutrophils (Bld) [#/Vol] 5.7 10*3/uL 2.0-7.7 [facility] Work Phone: Neutrophils/100 WBC (Bld) 66.3 % 34-64 [facility] Work Phone: [phone] Potassium [Moles/Vol] 4.1 mmol/L 3.5-5.[address] [facility] Work Phone: [phone] Sodium [Moles/Vol] 138 mmol/L 136-145 [facility] Work Phone: [phone] WBC (Bld) [#/Vol] 8.5 10*3/uL 4.5-13.0 [facility] Work Phone: [phone] Blood erythrocytes count (nu mber/volume)on 06-28-2022 RBC (Bld) [#/Vol] 5.35 10*6/uL 4.5-5.1 [facility] Work Phone: [phone] Blood hemoglobin measurement (mass/volume)on 06-28-2022 Hemoglobin (Bld) [Mass/Vol] 15.5 g/dL 13.0-16.5 [facility] Work Phone: [phone] Blood lymphocytes/100 leukoc yteson 06-28-2022 Lymphocytes/100 WBC (Bld) 24.2 % 25-45 [facility] Work Phone: [phone] Blood monocytes/100 leukocyt eson 06-28-2022 Monocytes/100 WBC (Bld) 8.5 % 3-6 [facility] Work Phone: [phone] Blood platelet mean volumeon 06-28-2022 Platelet mean volume (Bld) [Entitic vol] 10.5 fL 6.2-12.0 [facility] Work Phone: Determination of erythrocyte mean corpuscular volume (MCV)on 06-28-2022 MCV (RBC) [Entitic vol] 83.4 fL 78-96 [facility] Work Phone: Hematocrit Auto (Bld) [Volum e fraction]on 06-28-2022 Hematocrit (Bld) [Volume fraction] 44.6 % 36-47 [facility] Work Phone: Laboratory - Chemistry and C hemistry - challengeon 06-28-2022 CO2 [Moles/Vol] 26.0 mmol/L 21.0-32.0 [facility] Work Phone: [phone] Urea nitrogen/Creatinine [Mass ratio] 9.9 mg/mg 10-20 [facility] Work Phone: [phone] Laboratory - Drug toxicology on 06-28-2022 Amphetamines Ql (U) Negative <1000 ng[facility] Work Phone: [phone] Benzodiazepines Ql (U) Negative < 200 ng/mL [facility] Work Phone: [phone] Cannabinoids Screen Ql (U) Negative < 50 ng/mL [facility] Work Phone: [phone] Cocaine Ql (U) Negative < 300 ng/mL [facility] Work Phone: [phone] Opiates Ql (U) Negative < 300 ng/mL [facility] Work Phone: [phone] Laboratory - Hematology and Cell countson 06-28-2022 Erythrocyte distribution width (RBC) [Entitic vol] 37.6 fL 35.1-43.9 [facility] Work Phone: [phone] Erythrocyte distribution width (RBC) [Ratio] 12.4 % 11.6-14.6 [facility] Work Phone: [phone] Immature granulocytes/100 WBC (Bld) 0.100 % 0.0-0.9 [facility] Work Phone: [phone] Comment on above: IG% - Immature Granu locytes (promyelocytes, myelocytes and metamyelocytes) > 1% indicates that a LEFT SHIFT is Present. MCH (RBC) [Entitic mass] 29.0 pg 25.0-35.0 [facility] Work Phone: [phone] Nucleated RBC/100 WBC (Bld) [Ratio] 0 % 0-5 [facility] Work Phone: [phone] MCHC Auto (RBC) [Mass/Vol]on 06-28-2022 MCHC (RBC) [Mass/Vol] 34.8 g/dL 32-36 [facility] Work Phone: [phone] Panel Informationon 06-28 Estimated Creatinine Clearance Calc 185.26 ml/min [facility] Work Phone: [phone] Estimated GFR (MDRD) Amer TNP [facility] Work Phone: [phone] Comment on above: Test not performedAf rican [place]uran GFR Calc Estimated GFR (MDRD) Non-Af [facility] Work Phone: [phone] Comment on above: Test not performedNo n- GFR Calc Ethyl Alcohol Level 4.0 mg/dL [facility] Work Phone: Comment on above: The serum:whole bloo d ethanol ratio is approximately 1.14and varies slightly with hematocrit. Medical Alcohol reference interval and critical value innon-tolerant individuals; 50 - 100 Impairment 100 Intoxication 100 - 250 Severe Poisoning 250 - 400 Deep/possible fatal coma MDMA (Ecstasy) Screen Negative < 500 ng/mL [facility] Work Phone: [phone] Urine Barbiturates Screen Negative < 200 ng/mL [facility] Work Phone: [phone] Urine Drug Screen Comment [facility] Work Phone: [phone] Comment on above: CONFIRMATORY TESTING FOR [...] Methadone Screen Negative < 300 ng/mL [facility] Work Phone: [phone] Platelets bldon 06-28-2022 Platelets (Bld) [#/Vol] 315 10*3/uL 150-450 [facility] Work Phone: [phone] Serum or plasma calcium rhona urement (mass/volume)on 06-28-2022 Calcium [Mass/Vol] 9.3 mg/dL 8.5-10.1 [facility] Work Phone: Serum or plasma creatinine m easurement (mass/volume)on 06-28-2022 Creatinine [Mass/Vol] 0.70 mg/dL 0.70-1.[address] [facility] Work Phone: Comment on above: The validity of the calculated GFR & GFRAA in patients over 70 years has not been determined. Clinical correlation is essential. Serum or plasma urea nitroge n measurement (mass/volume)on 06-28-2022 Urea nitrogen [Mass/Vol] 7 mg/dL 7-18 [facility] Work Phone: Thin prep Papanicolaou smear with manual screeningon 06-28-2022 Thin prep Papanicolaou smear with manual screening 5 5-15 [facility] Work Phone: Urine phencyclidine (PCP) de tectionon 06-28-2022 Phencyclidine Ql (U) Negative < 25 ng/mL [facility] Work Phone: 30on 06-26-2022 30 The patient [...] by Jairo Olvera RN Outcome: Progressing [facility] 94on 06-26-2022 94 Group Topic: Social Work Group Date: 06/26/2022 Start Time: 1099 End Time: 114 Facilitators: BEN Isaacs Department: [facility] [employer] Number of Participants: 10 Group Focus: other self contr Treatment Modality: Interpersonal Therapy and Psychoeducation Interventions utilized were active listening, assignment, confrontation, orientation, patient education, and problem solving Purpose: enhance coping skills Name: Manny Mcnally Date of : 2005 MR: [id number] Level of Participation: minimal Quality of Participation: distractible Interactions with others: gave feedback Mood/Affect: bored Triggers (if applicable): Cognition: coherent/clear Progress: Minimal Response: Plan: follow-up needed Patients Problems: Patient Active Problem List Diagnosis Suicidal behavior with attempted self-injury (CMS/HCC) ADHD (attention deficit hyperactivity disorder) Oppositional defiant disorder Autism spectrum disorder MARILEE (generalized anxiety disorder) Moderate episode of recurrent major depressive disorder (CMS/HCC) [facility] 94 Group Topic: Nilson petersons Group Date: 06/25/2022 Start Time: 184 End Time: 1944 Facilitators: Blanka Olvera Department: [facility] Number of Participants: 10 Group Focus: coping skills, healthy friendships, and self-awareness Treatment Modality: Psychoeducation Interventions utilized were active listening, assignment, group exercise, and patient education Purpose: enhance coping skills, express feelings, increase insight or knowledge, and reinforce self-care Name: Manny Mcnally Date of : 2005 MR: [id number] Level of Participation: active Quality of Participation: [...] episode of recurrent major depressive disorder (CMS/HCC) [facility] DSon 06-26-2022 DS ---- -------- Attestation [...] medical history is admitted to the [facility] inpatient psychiatric unit for safety, evaluation, and treatment of suicidal ideation and question of suicide attempt following the patient cutting himself on the neck and forearm with a piece of glass. Suicidal thoughts began roughly 3 weeks ago following the completed suicide of a friend. 2 weeks ago the patient was admitted from June 13 to at [facility] for suicidal ideation. Following the discharge he [...] Prior inpatient treatment: Most recent admission at [facility], 7 hospitalizations in the past year History of suicide: Attempted hanging 1 year ago Self-InjuriousBehavior: Reports cutting for 2 years when angry, anxious, sad. History of homicide: Patient denies history of homicide Current Psychiatrist: Dr. Rik Ashby, Malorie Rudd FUNERAL DIRECTOR with [facility] History: Multiple therapists; [facility] and counseling center, home therapy with [facility], equine therapy Pertinent Family, Social, Abuse [...] Childhood: Patient was born and raised in [place] Household composition: Lives with aunt, uncle, uncles [...] Snorting Ad (more content not included)... [facility] NURSNOTEon 06-26-2022 NURSNOTE Pt awoken for AM [...] and staff will continue to monitor pt. [facility] 94on 06-25-2022 94 Group Topic: Activit y Therapy Group Date: 06/25/2022 Start Time: 1430 End Time: 1530 Facilitators: DARI Roca Department: [facility] Number of Participants: 11 Group Focus: art therapy and check in Treatment Modality: Interpersonal Therapy Interventions utilized were other Art Exploration Values Activity Purpose: enhance coping skills and express feelings Name: Manny Mcnally Date of : 2005 MR: [id number] Level of Participation: moderate Quality of Participation: [...] Moderate episode of recurrent major depressive disorder ([facility]/HCC) [facility] 94 Group Topic: Activit y Therapy Group Date: 06/25/2022 Start Time: 1315 End Time: 1415 Facilitators: DARI Roca Department: [facility] Number of Participants: 11 Group Focus: feeling awareness/expression - Coping Skill Can Treatment Modality: Interpersonal Therapy Interventions utilized were active listening, exploration, and leisure development Purpose: enhance coping skills, explore maladaptive thinking, express feelings, and reinforce self-care Name: Manny Mcnally Date of : 2005 MR: [id number] Level of Participation: moderate Quality of Participation: [...] Moderate episode of recurrent major depressive disorder ([facility]/HCC) [facility] NURSNOTEon 06-25-2022 NURSNOTE Pt is social [...] expresses a strong desire to go home. [facility] NURSNOTE Pt showered and ate snack. Pt did attend group and had to be redirect multiple times for distracting behavior. Music Education Director asked pt why he felt that his peers and to "take over the staff?" Pt became agitated and declined to answer any further assessment questions. Pt requested to go to bed early without incident. Q15 min safety checks maintained. [facility] NURSNOTE Pt rested with eyes closed and easy RR for 8 hour of sleep; q15 min safety checks maintained [facility] 30on 06-24-2022 30 The patient is [...] safety plan by 06/27/2022 Outcome: Progressing [facility] 30 The patient is Moderately Unstable - [...] LTG-Take medications as prescribed Outcome: Progressing [facility] 94on 06-24-2022 94 Group Topic: Nilson petersons Group Date: 06/24/2022 Start Time: 1845 End Time: 194 Facilitators: Darrin Acharya Department: [facility] Number of [...] Manny Mcnally Date of : 2005 MR: [id number] Level of Participation: moderate Quality of Participation: cooperative, immature, and impulsive Interactions with others: sarcastic Mood/Affect: Fluctuating in mood in the sense of being on track and appropriate to guarded and impulsive in speech. Triggers (if applicable): N/A Cognition: no insight Progress: Minimal Response: Pt stated hes ok with going through the system of [facility] and psych Plan: follow-up needed Patients Problems: Patient Active Problem List Diagnosis Suicidal behavior with attempted self-injury (CMS/HCC) ADHD (attention deficit hyperactivity disorder) Oppositional defiant disorder Autism spectrum disorder MARILEE (generalized anxiety disorder) Moderate episode of recurrent major depressive disorder (CMS/HCC) [facility] 94 Group Topic: Activit y Therapy Group Date: 06/24/2022 Start Time: 1400 End Time: 1500 Facilitators: DARI Roca Department: [facility] Number of Participants: 9 Group Focus: music therapy Treatment Modality: Interpersonal Therapy and Leisure Development Interventions utilized were exploration, leisure development, and other music Purpose: enhance coping skills, express feelings, regain self-worth, and reinforce self-care Name: Manny Mcnally Date of : 2005 MR: [id number] Level of Participation: active Quality of Participation: [...] episode of recurrent major depressive disorder (CMS/HCC) [facility] 94 Group Topic: Goals Group Date: 06/24/2022 Start Time: 1040 End Time: 1145 Facilitators: Graciela Fernandes Department: [facility] Number of Participants: 11 Group Focus: check in, community group, family, feeling awareness/expression, nursing group, and safety plan Treatment Modality: Psychoeducation Interventions utilized were active listening, assignment, group exercise, and patient education Purpose: express feelings, improve communication skills, increase insight or knowledge, and relapse prevention strategies Name: Manny Mcnally Date of : 2005 MR: [id number] Level of Participation: moderate Quality of Participation: [...] episode of recurrent major depressive disorder (CMS/HCC) [facility] 94 Group Topic: Coping Skills Group Date: 06/24/2022 Start Time: 45 End Time: 0915 Facilitators: Graciela Fernandes Department: [facility] Number of [...] Manny Mcnally Date of : 2005 MR: [id number] Level of Participation: moderate Quality of Participation: [...] Moderate episode of recurrent major depressive disorder ([facility]) [facility] LIPID PANELon 06-24-2022 CHOL/HDL 7.04 mg/dL [facility] Comment on above: Performed By: #### L [id number] ####[facility] (BEAKER)[address] [place] [address] Cholesterol [Mass/Vol] 183 mg/dL High 120-170 [facility] Comment on above: Performed By: #### L [id number] ####[facility] (BEAKER)[address] [place] [address] Magnesium [Mass/Vol] 227 mg/dL High 37-148 [facility] Comment on above: Result Comment: TRIG LYCERIDE REFERENCE RANGE: 20 YEARS AND OLDER CARDIOVASCULAR RISK LESS THAN 150 mg/dL LOW RISK 150 TO 199 mg/dL BORDERLINE RISK 200 mg/dL AND GREATER HIGH RISK Performed By: #### L [id number] ####[facility] (BEAKER)[address] [place] [address] Magnesium [Mass/Vol] 112 mg/dL Normal 0-160 [facility] Comment on above: Performed By: #### L [id number] ####[facility] (BEAKER)[address] [place] [address] Magnesium [Mass/Vol] 26 mg/dL Normal 23-92 [facility] Comment on above: Performed By: #### L [id number] ####[facility] (BEAKER)[address] [place] [address] NON HDL CHOL. (LDL+VLDL) 157 [facility] Comment on above: Performed By: #### L [id number] ####[facility] (BEAKER)[address] [place] [address] TOTAL VLDL-C 45 mg/dL High 0-40 [facility] Comment on above: Performed By: #### L [id number] ####[facility] (BEAKER)[address] [place] [address] NURSNOTEon 06-24-2022 NURSNOTE Pt was interviewed b y mortgage or loan underwriter at this time. Pt is social [...] time. Pt remains safe from harm. [facility] NURSNOTE Pt rested with eyes closed and easy RR for 8 hour of sleep; q15 min safety checks maintained [facility] 30on 06-23-2022 30 The patient is Moderately [...] of funct (more content not included)... [facility] 30 The patient is Moderately Unstable - [...] absence of plan Outcome: Not Progressing [facility] 30 The patient is Moderately Unstable - [...] absence of plan Outcome: Not Progressing [facility] 30 The patient is Moderately Unstable - Medium risk of patient condition declining or worsening The patient's goals for the shift include The clinical goals for the shift include [facility] HPon 06-23-2022 HP ---- -------- Attestation signed [...] medical history is admitted to the [facility] inpatient psychiatric unit for safety, evaluation, and treatment of suicidal ideation and question of suicide attempt following the patient cutting himself on the neck and forearm with a piece of glass. Suicidal thoughts began roughly 3 weeks ago following the completed suicide of a friend. 2 weeks ago the patient was admitted from June 13 to at [facility] for suicidal ideation. Following the discharge he [...] Transport to the Hospital: EMS Transported from: [facility] Accompanied: No Current Psychiatric Medication: Lamictal [...] 1 year a (more content not included)... [facility] NURSNOTEon 06-23-2022 NURSNOTE Pt attended group, a te snack, showered and socialized with peers a little more tonight. Pt denies SI/HI and AV hallucinations. Rates depression 0/10, Anxiety 0/10 and anger 2/10. Music Education Director ask what he is irritable about pt declined to answer at this time. Music Education Director educated that if he felt he need to verbalize his feeling to let staff know. Pt appears irritable and has poor eye control. Did answer question respectfully and in a calm manner. Educated pt on medication and q15 min safety checks; pt verbalized understanding [facility] NURSNOTE Pt needed redirected due to outburst yelling " SHUT UP IT"S NOT FUNNY" room became quiet. PT responded to mortgage or loan underwriter inappropriately stating stay out of my conversation you don't know what I'm talking about" PT became calm. Music Education Director and pt discussed the rules of the unit, no yelling, screaming at others. Pt did state he understood. Pt advised to come to staff when feeling upset. PT remains safe and free from harm. Normal [facility] NURSNOTE New admit. PT coming from [place], [place]. Pt reports previously had a stay at [facility], discharged 5 days ago. PT states 4 days ago wanted to scare his sister. PT states today that he denies any thoughts of harming self or others, denies any hallucinations. Pt states " I don't even know why I'm here" Pt does have a hx of cutting [...] PT remains safe and free from harm. [facility] Absolute lymphocyte counton 06-21-2022 Lymphocytes Auto (Unsp spec) [#/Vol] 2.15 10*3/uL 0.83-4.51 [facility] Work Phone: Basophil percentageon 2021 Basophils/100 WBC (Bld) 0.3 % 0-1 [facility] Work Phone: Chloride [Moles/Vol] 108 mmol/L 98-107 [facility] Work Phone: Eosinophils/100 WBC (Bld) 0.9 % 0-3 [facility] Work Phone: Glucose [Mass/Vol] 95 mg/dL 74-106 [facility] Work Phone: Neutrophils (Bld) [#/Vol] 6.3 10*3/uL 2.0-7.7 [facility] Work Phone: Neutrophils/100 WBC (Bld) 68.2 % 34-64 [facility] Work Phone: Potassium [Moles/Vol] 3.8 mmol/L 3.5-5.[address] [facility] Work Phone: Sodium [Moles/Vol] 140 mmol/L 136-145 [facility] Work Phone: WBC (Bld) [#/Vol] 9.3 10*3/uL 4.5-13.0 [facility] Work Phone: [phone] Blood erythrocytes count (nu mber/volume)on 06-21-2022 RBC (Bld) [#/Vol] 5.45 10*6/uL 4.5-5.1 [facility]: Blood hemoglobin measurement (mass/volume)on 06-21-2022 Hemoglobin (Bld) [Mass/Vol] 15.4 g/dL 13.0-16.5 [facility] Work Phone: [phone] Blood lymphocytes/100 leukoc yteson 06-21-2022 Lymphocytes/100 WBC (Bld) 23.2 % 25-45 [facility] Work Phone: [phone] Blood monocytes/100 leukocyt eson 06-21-2022 Monocytes/100 WBC (Bld) 7.1 % 3-6 [facility] Work Phone: [phone] Blood platelet mean volumeon 06-21-2022 Platelet mean volume (Bld) [Entitic vol] 10.5 fL 6.2-12.0 [facility] Work Phone: Determination of erythrocyte mean corpuscular volume (MCV)on 06-21-2022 MCV (RBC) [Entitic vol] 84.2 fL 78-96 [facility] Work Phone: [phone] Hematocrit Auto (Bld) [Volum e fraction]on 06-21-2022 Hematocrit (Bld) [Volume fraction] 45.9 % 36-47 [facility] Work Phone: [phone] Laboratory - Chemistry and C hemistry - challengeon 06-21-2022 CO2 [Moles/Vol] 24.0 mmol/L 21.0-32.0 [facility] Work Phone: Urea nitrogen/Creatinine [Mass ratio] 11.3 mg/mg 10-20 [facility] Work Phone: [phone] Laboratory - Drug toxicology on 06-21-2022 Amphetamines Ql (U) Negative <1000 ng[facility]: [phone] Benzodiazepines Ql (U) Negative < 200 ng/mL [facility] Work Phone: [phone] Cannabinoids Screen Ql (U) Negative < 50 ng/mL [facility] Work Phone: [phone] Cocaine Ql (U) Negative < 300 ng/mL [facility] Work Phone: [phone] Opiates Ql (U) Negative < 300 ng/mL [facility] Work Phone: [phone] Laboratory - Hematology and Cell countson 06-21-2022 Erythrocyte distribution width (RBC) [Entitic vol] 38.4 fL 35.1-43.9 [facility] Work Phone: [phone] Erythrocyte distribution width (RBC) [Ratio] 12.7 % 11.6-14.6 [facility] Work Phone: [phone] Immature granulocytes/100 WBC (Bld) 0.300 % 0.0-0.9 [facility] Work Phone: [phone] Comment on above: IG% - Immature Granu locytes (promyelocytes, myelocytes and metamyelocytes) > 1% indicates that a LEFT SHIFT is Present. MCH (RBC) [Entitic mass] 28.3 pg 25.0-35.0 [facility] Work Phone: [phone] Nucleated RBC/100 WBC (Bld) [Ratio] 0 % 0-5 [facility] Work Phone: [phone] MCHC Auto (RBC) [Mass/Vol]on 06-21-2022 MCHC (RBC) [Mass/Vol] 33.6 g/dL 32-[address] [facility] Work Phone: [phone] Panel Informationon 06-21 MDMA (Ecstasy) Screen Negative < 500 ng/mL [facility] Work Phone: [phone] Urine Barbiturates Screen Negative < 200 ng/mL [facility] Work Phone: [phone] Urine Drug Screen Comment [facility] Work Phone: Comment on above: CONFIRMATORY [...] Methadone Screen Negative < 300 ng/mL [facility] Work Phone: [phone] Estimated Creatinine Clearance Calc 177.07 ml/min [facility] Work Phone: [phone] Estimated GFR (MDRD) er [facility] Work Phone: Comment on above: Test not performedAf rican [place] GFR Calc Estimated GFR (MDRD) Non-Af [facility] Work Phone: [phone] Comment on above: Test not performedNo n- GFR Calc Ethyl Alcohol Level < 3.0 mg/dL [facility] Work Phone: Comment on above: The serum:whole bloo d ethanol ratio is approximately 1.14and varies slightly with hematocrit. Medical Alcohol reference interval and critical value innon-tolerant individuals; 50 - 100 Impairment 100 Intoxication 100 - 250 Severe Poisoning 250 - 400 Deep/possible fatal coma Platelets bldon 06-21-2022 Platelets (Bld) [#/Vol] 356 10*3/uL 150-450 [facility] Work Phone: [phone] Serum or plasma calcium rhona urement (mass/volume)on 06-21-2022 Calcium [Mass/Vol] 9.1 mg/dL 8.5-10.1 [facility] Work Phone: [phone] Serum or plasma creatinine m easurement (mass/volume)on 06-21-2022 Creatinine [Mass/Vol] 0.71 mg/dL 0.70-1.[address] [facility] Work Phone: [phone] Comment on above: The validity of the calculated GFR & GFRAA in patients over 70 years has not been determined. Clinical correlation is essential. Serum or plasma urea nitroge n measurement (mass/volume)on 06-21-2022 Urea nitrogen [Mass/Vol] 8 mg/dL 7-18 [facility] Work Phone: Thin prep Papanicolaou smear with manual screeningon 06-21-2022 Thin prep Papanicolaou smear with manual screening 8 5-15 [facility] Work Phone: Urine phencyclidine (PCP) de tectionon 06-21-2022 Phencyclidine Ql (U) Negative < 25 ng/mL [facility] Work Phone: Drugs of Abuse with THC, uri ne-[place] 06-13-2022 Amphetamines, Ur Negative Negative [facility] Comment on above: Threshold = 1000 ng/ mL Barbiturates, Ur Negative Negative [facility] Comment on above: Threshold = 200 ng/m L Benzodiazepines, Ur Negative Negative [facility] Comment on above: Threshold = 200 ng/m L Cocaine Negative Negative [facility] Comment on above: Threshold = 300 ng/m L Methadone, Ur Negative Negative [facility] Comment on above: Threshold = 300 ng/m L Opiates Negative Negative [facility] Comment on above: Threshold = 300 ng/m L PCP-Phencyclidine Negative Negative [facility] Comment on above: Threshold = 25 ng/mL THC,50,Urine Negative Negative [facility] Comment on above: This testing is inte nded for medical management and treatment only. Analysis performed using non-forensic procedures. Threshold = 50 ng/mL Reason for preventin g automatic release->Other Release to patient->Manual release only [facility] Absolute lymphocyte counton 01-08-2022 Lymphocytes Auto (Unsp spec) [#/Vol] 2.07 10*3/uL 0.83-4.51 [facility] Work Phone: Basophil percentageon 2021 Basophils/100 WBC (Bld) 0.5 % 0-1 [facility] Work Phone: Chloride [Moles/Vol] 109 mmol/L 98-107 [facility] Work Phone: Eosinophils/100 WBC (Bld) 1.1 % 0-3 [facility] Work Phone: Glucose [Mass/Vol] 91 mg/dL 74-106 [facility] Work Phone: Neutrophils (Bld) [#/Vol] 4.7 10*3/uL 2.0-7.7 [facility] Work Phone: Neutrophils/100 WBC (Bld) 63.0 % 34-64 [facility] Work Phone: Potassium [Moles/Vol] 3.7 mmol/L 3.5-5.[address] [facility] Work Phone: Sodium [Moles/Vol] 141 mmol/L 136-145 [facility] Work Phone: WBC (Bld) [#/Vol] 7.4 10*3/uL 4.5-13.0 [facility] Work Phone: Blood erythrocytes count (nu mber/volume)on 01-08-2022 RBC (Bld) [#/Vol] 5.22 10*6/uL 4.5-5.1 [facility] Work Phone: Blood hemoglobin measurement (mass/volume)on 01-08-2022 Hemoglobin (Bld) [Mass/Vol] 14.6 g/dL 13.0-16.5 [facility] Work Phone: Blood lymphocytes/100 leukoc yteson 01-08-2022 Lymphocytes/100 WBC (Bld) 27.8 % 25-45 [facility] Work Phone: Blood monocytes/100 leukocyt eson 01-08-2022 Monocytes/100 WBC (Bld) 7.3 % 3-6 [facility] Work Phone: Blood platelet mean volumeon 01-08-2022 Platelet mean volume (Bld) [Entitic vol] 10.1 fL 6.2-12.0 [facility] Work Phone: [phone] Determination of erythrocyte mean corpuscular volume (MCV)on 01-08-2022 MCV (RBC) [Entitic vol] 84.3 fL 78-96 [facility] Work Phone: [phone] Hematocrit Auto (Bld) [Volum e fraction]on 01-08-2022 Hematocrit (Bld) [Volume fraction] 44.0 % 36-47 [facility] Work Phone: [phone] Laboratory - Chemistry and C hemistry - challengeon 01-08-2022 CO2 [Moles/Vol] 26.0 mmol/L 21.0-32.0 [facility] Work Phone: [phone] Urea nitrogen/Creatinine [Mass ratio] 16.9 mg/mg 10-20 [facility] Work Phone: [phone] Laboratory - Drug toxicology on 01-08-2022 Amphetamines Ql (U) Negative [facility] Work Phone: [phone] Benzodiazepines Ql (U) Negative [facility] Work Phone: [phone] Cannabinoids Screen Ql (U) Negative [facility] Work Phone: [phone] Cocaine Ql (U) Negative [facility] Work Phone: [phone] Opiates Ql (U) Negative [facility] Work Phone: [phone] Laboratory - Hematology and Cell countson 01-08-2022 Erythrocyte distribution width (RBC) [Entitic vol] 38.3 fL 35.1-43.9 [facility] Work Phone: [phone] Erythrocyte distribution width (RBC) [Ratio] 12.4 % 11.6-14.6 [facility] Work Phone: [phone] Immature granulocytes/100 WBC (Bld) 0.300 % 0.0-0.9 [facility] Work Phone: [phone] Comment on above: IG% - Immature Granu locytes (promyelocytes, myelocytes and metamyelocytes) > 1% indicates that a LEFT SHIFT is Present. MCH (RBC) [Entitic mass] 28.0 pg 25.0-35.0 [facility] Work Phone: Nucleated RBC/100 WBC (Bld) [Ratio] 0 % 0-5 [facility] Work Phone: [phone] MCHC Auto (RBC) [Mass/Vol]on 01-08-2022 MCHC (RBC) [Mass/Vol] 33.2 g/dL 32-[address] [facility] Work Phone: [phone] Panel Informationon 01-08 MDMA (Ecstasy) Screen Negative [facility] Work Phone: [phone] Urine Barbiturates Screen Negative [facility] Work Phone: [phone] Urine Drug Screen Comment [facility] Work Phone: [phone] Comment on above: CONFIRMATORY TESTING FOR ALL [...] [facility] Urine Methadone Screen Negative [facility] Work Phone: [phone] Estimated Creatinine Clearance Calc 163.28 ml/min [facility] Work Phone: [phone] Estimated GFR (MDRD) [facility] Work Phone: [phone] Comment on above: Test not performedAf rican [place] GFR Calc Estimated GFR (MDRD) Non-Af [facility] Work Phone: [phone] Comment on above: Test not performedNo n- GFR Calc Ethyl Alcohol Level < 3.0 mg/dL [facility] Work Phone: [phone] Comment on above: The serum:whole bloo d ethanol ratio is approximately 1.14and varies slightly with hematocrit. Medical Alcohol reference interval and critical value innon-tolerant individuals; 50 - 100 Impairment 100 Intoxication 100 - 250 Severe Poisoning 250 - 400 Deep/possible fatal coma Platelets bldon 01-08-2022 Platelets (Bld) [#/Vol] 304 10*3/uL 150-450 [facility] Work Phone: Serum or plasma calcium rhona urement (mass/volume)on 01-08-2022 Calcium [Mass/Vol] 9.3 mg/dL 8.5-10.1 [facility] Work Phone: Serum or plasma creatinine m easurement (mass/volume)on 01-08-2022 Creatinine [Mass/Vol] 0.77 mg/dL 0.70-1.[address] [facility] Work Phone: Comment on above: The validity of the calculated GFR & GFRAA in patients over 70 years has not been determined. Clinical correlation is essential. Serum or plasma urea nitroge n measurement (mass/volume)on 01-08-2022 Urea nitrogen [Mass/Vol] 13 mg/dL 7-18 [facility] Work Phone: Thin prep Papanicolaou smear with manual screeningon 01-08-2022 Thin prep Papanicolaou smear with manual screening 6 5-15 [facility] Work Phone: Urine phencyclidine (PCP) de tectionon 01-08-2022 Phencyclidine Ql (U) Negative [facility] Work Phone: Absolute lymphocyte counton 12-03-2021 Lymphocytes Auto (Unsp spec) [#/Vol] 2.09 10*3/uL 0.83-4.51 [facility] Work Phone: Basophil percentageon 2021 Basophils/100 WBC (Bld) 0.5 % 0-1 [facility] Work Phone: Chloride [Moles/Vol] 109 mmol/L 98-107 [facility] Work Phone: Eosinophils/100 WBC (Bld) 0.9 % 0-3 [facility] Work Phone: [phone] Glucose [Mass/Vol] 97 mg/dL 74-106 [facility] Work Phone: Neutrophils (Bld) [#/Vol] 6.3 10*3/uL 2.0-7.7 [facility] Work Phone: [phone] Neutrophils/100 WBC (Bld) 67.6 % 34-64 [facility] Work Phone: [phone] Potassium [Moles/Vol] 3.7 mmol/L 3.5-5.1 [facility] Work Phone: [phone] Sodium [Moles/Vol] 143 mmol/L 136-145 [facility]: WBC (Bld) [#/Vol] 9.3 10*3/uL 4.5-13.0 [facility]: [phone] Blood erythrocytes count (nu mber/volume)on 12-03-2021 RBC (Bld) [#/Vol] 5.09 10*6/uL 4.5-5.1 [facility]: Blood hemoglobin measurement (mass/volume)on 12-03-2021 Hemoglobin (Bld) [Mass/Vol] 14.6 g/dL 13.0-16.5 [facility] Work Phone: Blood lymphocytes/100 leukoc yteson 12-03-2021 Lymphocytes/100 WBC (Bld) 22.5 % 25-45 [facility] Work Phone: [phone] Blood monocytes/100 leukocyt eson 12-03-2021 Monocytes/100 WBC (Bld) 8.2 % 3-6 [facility] Work Phone: [phone] Blood platelet mean volumeon 12-03-2021 Platelet mean volume (Bld) [Entitic vol] 10.3 fL 6.2-12.0 [facility] Work Phone: Determination of erythrocyte mean corpuscular volume (MCV)on 12-03-2021 MCV (RBC) [Entitic vol] 83.5 fL 78-96 [facility] Work Phone: Hematocrit Auto (Bld) [Volum e fraction]on 12-03-2021 Hematocrit (Bld) [Volume fraction] 42.5 % 36-47 [facility] Work Phone: Laboratory - Chemistry and C hemistry - challengeon 12-03-2021 CO2 [Moles/Vol] 29.0 mmol/L 21.0-32.0 [facility] Work Phone: Urea nitrogen/Creatinine [Mass ratio] 18.9 mg/mg 10-20 [facility] Work Phone: Laboratory - Drug toxicology on 12-03-2021 Amphetamines Ql (U) Negative [facility] Work Phone: Benzodiazepines Ql (U) Negative [facility] Work Phone: Cannabinoids Screen Ql (U) Negative [facility] Work Phone: Cocaine Ql (U) Negative [facility] Work Phone: Opiates Ql (U) Negative [facility] Work Phone: Laboratory - Hematology and Cell countson 12-03-2021 Erythrocyte distribution width (RBC) [Entitic vol] 38.4 fL 35.1-43.9 [facility] Work Phone: [phone] Erythrocyte distribution width (RBC) [Ratio] 12.6 % 11.6-14.6 [facility] Work Phone: Immature granulocytes/100 WBC (Bld) 0.300 % 0.0-0.9 [facility] Work Phone: [phone] Comment on above: IG% - Immature Granu locytes (promyelocytes, myelocytes and metamyelocytes) > 1% indicates that a LEFT SHIFT is Present. MCH (RBC) [Entitic mass] 28.7 pg 25.0-35.0 [facility] Work Phone: Nucleated RBC/100 WBC (Bld) [Ratio] 0 % 0-5 [facility] Work Phone: MCHC Auto (RBC) [Mass/Vol]on 12-03-2021 MCHC (RBC) [Mass/Vol] 34.4 g/dL 32-[address] [facility] Work Phone: No Panel Informationon 12-03 MDMA (Ecstasy) Screen Negative [facility] Work Phone: Urine Barbiturates Screen Negative [facility] Work Phone: Urine Drug Screen Comment [facility] Work Phone: Comment on above: CONFIRMATORY [...] [facility] Urine Methadone Screen Negative [facility] Work Phone: Estimated Creatinine Clearance Calc 155.37 ml/min [facility] Work Phone: Estimated GFR (MDRD) [facility] Work Phone: Comment on above: Test not performedAf rican [place] GFR Calc Estimated GFR (MDRD) Non-Af [facility] Work Phone: Comment on above: Test not performedNo n- GFR Calc Ethyl Alcohol Level < 3.0 mg/dL [facility] Work Phone: Comment on above: The serum:whole bloo d ethanol ratio is approximately 1.14and varies slightly with hematocrit. Medical Alcohol reference interval and critical value innon-tolerant individuals; 50 - 100 Impairment 100 Intoxication 100 - 250 Severe Poisoning 250 - 400 Deep/possible fatal coma Platelets bldon 12-03-2021 Platelets (Bld) [#/Vol] 323 10*3/uL 150-450 [facility] Work Phone: Serum or plasma calcium rhona urement (mass/volume)on 12-03-2021 Calcium [Mass/Vol] 9.0 mg/dL 8.5-10.1 [facility] Work Phone: Serum or plasma creatinine m easurement (mass/volume)on 12-03-2021 Creatinine [Mass/Vol] 0.79 mg/dL 0.50-0.[address] [facility] Work Phone: Serum or plasma urea nitroge n measurement (mass/volume)on 12-03-2021 Urea nitrogen [Mass/Vol] 15 mg/dL 7-18 [facility] Work Phone: Thin prep Papanicolaou smear with manual screeningon 12-03-2021 Thin prep Papanicolaou smear with manual screening 5 5-15 [facility] Work Phone: [phone] Urine phencyclidine (PCP) de tectionon 12-03-2021 Phencyclidine Ql (U) Negative [facility] Work Phone: COVID-19, MOLECULARon 2021 SARS-CoV-2 (COVID-19) RNA LEIGHA+probe Ql (Unsp spec) Not detected Normal Not Detected [facility] Comment on above: Order Comment: [...] at the following links: For Healthcare Providers: https://www.fda.gov/media/924026/download For Patients: https://www.fda.gov/media/629917/download Performed By: #### L [id number] #### [facility] [address] [place], [place] [address] Evan Perkins M.D. [id number] Absolute lymphocyte counton 11-25-2021 Lymphocytes Auto (Unsp spec) [#/Vol] 2.14 10*3/uL 0.83-4.51 [facility] Work Phone: Basophil percentageon 2021 Basophils/100 WBC (Bld) 0.5 % 0-1 [facility] Work Phone: Chloride [Moles/Vol] 108 mmol/L 98-107 [facility] Work Phone: Eosinophils/100 WBC (Bld) 0.5 % 0-3 [facility] Work Phone: Glucose [Mass/Vol] 95 mg/dL 74-106 [facility] Work Phone: Neutrophils (Bld) [#/Vol] 4.6 10*3/uL 2.0-7.7 [facility] Work Phone: Neutrophils/100 WBC (Bld) 61.0 % 34-64 [facility] Work Phone: Potassium [Moles/Vol] 4.3 mmol/L 3.5-5.[address] [facility] Work Phone: Sodium [Moles/Vol] 141 mmol/L 136-145 [facility] Work Phone: WBC (Bld) [#/Vol] 7.5 10*3/uL 4.5-13.0 [facility] Work Phone: Blood erythrocytes count (nu mber/volume)on 11-25-2021 RBC (Bld) [#/Vol] 5.06 10*6/uL 4.5-5.1 [facility] Work Phone: Blood hemoglobin measurement (mass/volume)on 11-25-2021 Hemoglobin (Bld) [Mass/Vol] 14.5 g/dL 13.0-16.5 [facility] Work Phone: Blood lymphocytes/100 leukoc yteson 11-25-2021 Lymphocytes/100 WBC (Bld) 28.5 % 25-45 [facility] Work Phone: Blood monocytes/100 leukocyt eson 11-25-2021 Monocytes/100 WBC (Bld) 9.0 % 3-6 [facility] Work Phone: Blood platelet mean volumeon 11-25-2021 Platelet mean volume (Bld) [Entitic vol] 9.8 fL 6.2-12.0 [facility] Work Phone: [phone] Determination of erythrocyte mean corpuscular volume (MCV)on 11-25-2021 MCV (RBC) [Entitic vol] 86.0 fL 78-96 [facility] Work Phone: [phone] Hematocrit Auto (Bld) [Volum e fraction]on 11-25-2021 Hematocrit (Bld) [Volume fraction] 43.5 % 36-47 [facility] Work Phone: [phone] Laboratory - Chemistry and C hemistry - challengeon 11-25-2021 CO2 [Moles/Vol] 29.0 mmol/L 21.0-32.0 [facility] Work Phone: [phone] Urea nitrogen/Creatinine [Mass ratio] 19.8 mg/mg 10-20 [facility] Work Phone: [phone] Laboratory - Drug toxicology on 11-25-2021 Amphetamines Ql (U) Negative [facility] Work Phone: [phone] Benzodiazepines Ql (U) Negative [facility] Work Phone: [phone] Cannabinoids Screen Ql (U) Negative [facility] Work Phone: [phone] Cocaine Ql (U) Negative [facility] Work Phone: [phone] Opiates Ql (U) Negative [facility] Work Phone: [phone] Laboratory - Hematology and Cell countson 11-25-2021 Erythrocyte distribution width (RBC) [Entitic vol] 40.2 fL 35.1-43.9 [facility] Work Phone: [phone] Erythrocyte distribution width (RBC) [Ratio] 12.9 % 11.6-14.6 [facility] Work Phone: [phone] Immature granulocytes/100 WBC (Bld) 0.500 % 0.0-0.9 [facility] Work Phone: [phone] Comment on above: IG% - Immature Granu locytes (promyelocytes, myelocytes and metamyelocytes) > 1% indicates that a LEFT SHIFT is Present. MCH (RBC) [Entitic mass] 28.7 pg 25.0-35.0 [facility] Work Phone: [phone] Nucleated RBC/100 WBC (Bld) [Ratio] 0 % 0-5 [facility] Work Phone: [phone] MCHC Auto (RBC) [Mass/Vol]on 11-25-2021 MCHC (RBC) [Mass/Vol] 33.3 g/dL 32-[address] [facility] Work Phone: [phone] Panel Informationon 11-25 MDMA (Ecstasy) Screen Negative [facility] Work Phone: [phone] Urine Barbiturates Screen Negative [facility] Work Phone: [phone] Urine Drug Screen Comment [facility] Work Phone: [phone] Comment on above: CONFIRMATORY TESTING FOR ALL [...] [facility] Urine Methadone Screen Negative [facility] Work Phone: [phone] Estimated Creatinine Clearance Calc 161.50 ml/min [facility] Work Phone: [phone] Estimated GFR (MDRD) [facility] Work Phone: [phone] Comment on above: Test not performedAf rican [place] GFR Calc Estimated GFR (MDRD) Non-Af [facility] Work Phone: [phone] Comment on above: Test not performedNo n- GFR Calc Ethyl Alcohol Level < 3.0 mg/dL [facility] Work Phone: Comment on above: The serum:whole bloo d ethanol ratio is approximately 1.14and varies slightly with hematocrit. Medical Alcohol reference interval and critical value innon-tolerant individuals; 50 - 100 Impairment 100 Intoxication 100 - 250 Severe Poisoning 250 - 400 Deep/possible fatal coma Platelets bldon 11-25-2021 Platelets (Bld) [#/Vol] 344 10*3/uL 150-450 [facility] Work Phone: Serum or plasma calcium rhona urement (mass/volume)on 11-25-2021 Calcium [Mass/Vol] 9.4 mg/dL 8.5-10.1 [facility] Work Phone: [phone] Serum or plasma creatinine m easurement (mass/volume)on 11-25-2021 Creatinine [Mass/Vol] 0.76 mg/dL 0.50-0.[address] [facility] Work Phone: Serum or plasma urea nitroge n measurement (mass/volume)on 11-25-2021 Urea nitrogen [Mass/Vol] 15 mg/dL 7-18 [facility] Work Phone: Thin prep Papanicolaou smear with manual screeningon 11-25-2021 Thin prep Papanicolaou smear with manual screening 4 5-15 [facility] Work Phone: [phone] Urine phencyclidine (PCP) de tectionon 11-25-2021 Phencyclidine Ql (U) Negative [facility] Work Phone: Absolute lymphocyte counton 10-24-2021 Lymphocytes Auto (Unsp spec) [#/Vol] 1.63 10*3/uL 0.83-4.51 [facility] Work Phone: Basophil percentageon 2021 Basophils/100 WBC (Bld) 0.5 % 0-1 [facility] Work Phone: Chloride [Moles/Vol] 107 mmol/L 98-107 [facility] Work Phone: Eosinophils/100 WBC (Bld) 0.5 % 0-3 [facility] Work Phone: Glucose [Mass/Vol] 94 mg/dL 74-106 [facility] Work Phone: [phone] Neutrophils (Bld) [#/Vol] 6.0 10*3/uL 2.0-7.7 [facility] Work Phone: [phone] Neutrophils/100 WBC (Bld) 71.0 % 34-64 [facility] Work Phone: [phone] Potassium [Moles/Vol] 4.0 mmol/L 3.5-5.1 [facility] Work Phone: [phone] Sodium [Moles/Vol] 138 mmol/L 136-145 [facility] Work Phone: [phone] WBC (Bld) [#/Vol] 8.4 10*3/uL 4.5-13.0 [facility] Work Phone: [phone] Blood erythrocytes count (nu mber/volume)on 10-24-2021 RBC (Bld) [#/Vol] 5.45 10*6/uL 4.5-5.1 [facility] Work Phone: [phone] Blood hemoglobin measurement (mass/volume)on 10-24-2021 Hemoglobin (Bld) [Mass/Vol] 15.7 g/dL 13.0-16.5 [facility] Work Phone: [phone] Blood lymphocytes/100 leukoc yteson 10-24-2021 Lymphocytes/100 WBC (Bld) 19.3 % 25-45 [facility] Work Phone: [phone] Blood monocytes/100 leukocyt eson 10-24-2021 Monocytes/100 WBC (Bld) 8.3 % 3-6 [facility] Work Phone: [phone] Blood platelet mean volumeon 10-24-2021 Platelet mean volume (Bld) [Entitic vol] 10.3 fL 6.2-12.0 [facility] Work Phone: [phone] Determination of erythrocyte mean corpuscular volume (MCV)on 10-24-2021 MCV (RBC) [Entitic vol] 84.4 fL 78-96 [facility] Work Phone: Hematocrit Auto (Bld) [Volum e fraction]on 10-24-2021 Hematocrit (Bld) [Volume fraction] 46.0 % 36-47 [facility] Work Phone: [phone] Laboratory - Chemistry and C hemistry - challengeon 10-24-2021 CO2 [Moles/Vol] 27.0 mmol/L 21.0-32.0 [facility] Work Phone: [phone] Urea nitrogen/Creatinine [Mass ratio] 10.5 mg/mg 10-20 [facility] Work Phone: [phone] Laboratory - Drug toxicology on 10-24-2021 Amphetamines Ql (U) Positive [facility] Work Phone: [phone] Benzodiazepines Ql (U) Negative [facility] Work Phone: [phone] Cannabinoids Screen Ql (U) Negative [facility] Work Phone: [phone] Cocaine Ql (U) Negative [facility] Work Phone: [phone] Opiates Ql (U) Negative [facility] Work Phone: [phone] Laboratory - Hematology and Cell countson 10-24-2021 Erythrocyte distribution width (RBC) [Entitic vol] 38.8 fL 35.1-43.9 [facility] Work Phone: [phone] Erythrocyte distribution width (RBC) [Ratio] 12.6 % 11.6-14.6 [facility] Work Phone: [phone] Immature granulocytes/100 WBC (Bld) 0.400 % 0.0-0.9 [facility] Work Phone: [phone] Comment on above: IG% - Immature Granu locytes (promyelocytes, myelocytes and metamyelocytes) > 1% indicates that a LEFT SHIFT is Present. MCH (RBC) [Entitic mass] 28.8 pg 25.0-35.0 [facility] Work Phone: [phone] Nucleated RBC/100 WBC (Bld) [Ratio] 0 % 0-5 [facility] Work Phone: [phone] MCHC Auto (RBC) [Mass/Vol]on 10-24-2021 MCHC (RBC) [Mass/Vol] 34.1 g/dL 32-[address] [facility] Work Phone: No Panel Informationon 10-24 Urine Barbiturates Screen Negative [facility] Work Phone: [phone] Urine Drug Screen Comment [facility] Work Phone: [phone] Comment on above: CONFIRMATORY TESTING FOR ALL [...] [facility] Urine Methadone Screen Negative [facility] Work Phone: Urine Methamphetamine-MDMA Screen Negative [facility] Work Phone: [phone] Estimated Creatinine Clearance Calc 161.50 ml/min [facility] Work Phone: [phone] Estimated GFR (MDRD) [facility] Work Phone: [phone] Comment on above: Test not performedAf rican [place] GFR Calc Estimated GFR (MDRD) Non-Af [facility] Work Phone: [phone] Comment on above: Test not performedNo n- GFR Calc Ethyl Alcohol Level < 3.0 mg/dL [facility] Work Phone: [phone] Comment on above: The serum:whole bloo d ethanol ratio is approximately 1.14and varies slightly with hematocrit. Medical Alcohol reference interval and critical value innon-tolerant individuals; 50 - 100 Impairment 100 Intoxication 100 - 250 Severe Poisoning 250 - 400 Deep/possible fatal coma SARS-CoV-2 Antigen (Rapid) [facility] Work Phone: Platelets bldon 10-24-2021 Platelets (Bld) [#/Vol] 286 10*3/uL 150-450 [facility] Work Phone: Serum or plasma calcium rhona urement (mass/volume)on 10-24-2021 Calcium [Mass/Vol] 9.2 mg/dL 8.5-10.1 [facility] Work Phone: Serum or plasma creatinine m easurement (mass/volume)on 10-24-2021 Creatinine [Mass/Vol] 0.76 mg/dL 0.50-0.[address] [facility] Work Phone: Serum or plasma urea nitroge n measurement (mass/volume)on 10-24-2021 Urea nitrogen [Mass/Vol] 8 mg/dL 7-18 [facility] Work Phone: Thin prep Papanicolaou smear with manual screeningon 10-24-2021 Thin prep Papanicolaou smear with manual screening 4 5-15 [facility] Work Phone: Urine phencyclidine (PCP) de tectionon 10-24-2021 Phencyclidine Ql (U) Negative [facility] Work Phone: Absolute lymphocyte counton 10-12-2021 Lymphocytes Auto (Unsp spec) [#/Vol] 2.65 10*3/uL 0.83-4.51 [facility] Work Phone: Basophil percentageon 2021 Basophils/100 WBC (Bld) 0.4 % 0-1 [facility] Work Phone: Bilirubin [Mass/Vol] 0.30 mg/dL 0.20-1.00 [facility] Work Phone: Comment on above: For patients on eltr ombopag therapy, use of Dimension [place] TBIL is not recommended. Chloride [Moles/Vol] 108 mmol/L 98-107 [facility] Work Phone: Eosinophils/100 WBC (Bld) 0.5 % 0-3 [facility] Work Phone: Glucose [Mass/Vol] 101 mg/dL 74-106 [facility] Work Phone: Comment on above: Fasting Glucose resu lt from 100 to 125 mg/dL suggests IMPAIRED HOMEOSTASIS per A.D.A. criteria. Neutrophils (Bld) [#/Vol] 6.9 10*3/uL 2.0-7.7 [facility] Work Phone: Neutrophils/100 WBC (Bld) 66.1 % 34-64 [facility] Work Phone: Potassium [Moles/Vol] 4.0 mmol/L 3.5-5.1 [facility] Work Phone: [phone] Protein [Mass/Vol] 7.8 g/dL 6.4-8.2 [facility] Work Phone: Sodium [Moles/Vol] 141 mmol/L 136-145 [facility] Work Phone: [phone] WBC (Bld) [#/Vol] 10.4 10*3/uL 4.5-13.0 [facility] Work Phone: Blood erythrocytes count (nu mber/volume)on 10-12-2021 RBC (Bld) [#/Vol] 5.36 10*6/uL 4.5-5.1 [facility] Work Phone: Blood hemoglobin measurement (mass/volume)on 10-12-2021 Hemoglobin (Bld) [Mass/Vol] 15.5 g/dL 13.0-16.5 [facility] Work Phone: Blood lymphocytes/100 leukoc yteson 10-12-2021 Lymphocytes/100 WBC (Bld) 25.6 % 25-45 [facility] Work Phone: [phone] Blood monocytes/100 leukocyt eson 10-12-2021 Monocytes/100 WBC (Bld) 6.9 % 3-6 [facility] Work Phone: Blood platelet mean volumeon 10-12-2021 Platelet mean volume (Bld) [Entitic vol] 9.9 fL 6.2-12.0 [facility] Work Phone: Determination of erythrocyte mean corpuscular volume (MCV)on 10-12-2021 MCV (RBC) [Entitic vol] 84.0 fL 78-96 [facility] Work Phone: [phone] Hematocrit Auto (Bld) [Volum e fraction]on 10-12-2021 Hematocrit (Bld) [Volume fraction] 45.0 % 36-47 [facility] Work Phone: [phone] Laboratory - Chemistry and C hemistry - challengeon 10-12-2021 ALP [Catalytic activity/Vol] 166 U/L 74-390 [facility] Work Phone: [phone] ALT [Catalytic activity/Vol] 75 U/L 16-61 [facility] Work Phone: [phone] CO2 [Moles/Vol] 25.0 mmol/L 21.0-32.0 [facility] Work Phone: [phone] Globulin (S) [Mass/Vol] 3.5 g/dL 2.2-4.2 [facility] Work Phone: [phone] Urea nitrogen/Creatinine [Mass ratio] 19.7 mg/mg 10-20 [facility] Work Phone: [phone] Laboratory - Drug toxicology on 10-12-2021 Amphetamines Ql (U) Positive [facility] Work Phone: [phone] Benzodiazepines Ql (U) Negative [facility] Work Phone: [phone] Cannabinoids Screen Ql (U) Negative [facility] Work Phone: [phone] Cocaine Ql (U) Negative [facility] Work Phone: [phone] Opiates Ql (U) Negative [facility] Work Phone: [phone] Laboratory - Hematology and Cell countson 10-12-2021 Erythrocyte distribution width (RBC) [Entitic vol] 38.7 fL 35.1-43.9 [facility] Work Phone: [phone] Erythrocyte distribution width (RBC) [Ratio] 12.7 % 11.6-14.6 [facility] Work Phone: [phone] Immature granulocytes/100 WBC (Bld) 0.500 % 0.0-0.9 [facility] Work Phone: [phone] Comment on above: IG% - Immature Granu locytes (promyelocytes, myelocytes and metamyelocytes) > 1% indicates that a LEFT SHIFT is Present. MCH (RBC) [Entitic mass] 28.9 pg 25.0-35.0 [facility] Work Phone: [phone] Nucleated RBC/100 WBC (Bld) [Ratio] 0 % 0-5 [facility] Work Phone: [phone] MCHC Auto (RBC) [Mass/Vol]on 10-12-2021 MCHC (RBC) [Mass/Vol] 34.4 g/dL 32-[address] [facility] Work Phone: [phone] Panel Informationon 10-12 Urine Barbiturates Screen Negative [facility] Work Phone: [phone] Urine Drug Screen Comment [facility] Work Phone: [phone] Comment on above: CONFIRMATORY TESTING FOR ALL [...] [facility] Urine Methadone Screen Negative [facility] Work Phone: [phone] Urine Methamphetamine-MDMA Screen Positive [facility] Work Phone: [phone] Estimated Creatinine Clearance Calc 161.50 ml/min [facility] Work Phone: [phone] Estimated GFR (MDRD) [facility] Work Phone: [phone] Comment on above: Test not performedAf rican [place] GFR Calc Estimated GFR (MDRD) Non-Af [facility] Work Phone: [phone] Comment on above: Test not performedNo n- GFR Calc Ethyl Alcohol Level < 3.0 mg/dL [facility] Work Phone: Comment on above: The serum:whole bloo d ethanol ratio is approximately 1.14and varies slightly with hematocrit. Medical Alcohol reference interval and critical value innon-tolerant individuals; 50 - 100 Impairment 100 Intoxication 100 - 250 Severe Poisoning 250 - 400 Deep/possible fatal coma SARS-CoV-2 Antigen (Rapid) [facility] Work Phone: Platelets bldon 10-12-2021 Platelets (Bld) [#/Vol] 329 10*3/uL 150-450 [facility] Work Phone: [phone] Serum or plasma albumin rhona urement (mass/volume)on 10-12-2021 Albumin [Mass/Vol] 4.3 g/dL 3.2-5.0 [facility] Work Phone: Serum or plasma albumin/glob ulin mass ratioon 10-12-2021 Albumin/Globulin [Mass ratio] 1.2 {ratio} 0.9-2.4 [facility] Work Phone: [phone] Serum or plasma calcium rhona urement (mass/volume)on 10-12-2021 Calcium [Mass/Vol] 9.4 mg/dL 8.5-10.1 [facility] Work Phone: Serum or plasma creatinine m easurement (mass/volume)on 10-12-2021 Creatinine [Mass/Vol] 0.76 mg/dL 0.50-0.[address] [facility] Work Phone: [phone] Serum or plasma urea nitroge n measurement (mass/volume)on 10-12-2021 Urea nitrogen [Mass/Vol] 15 mg/dL 7-18 [facility] Work Phone: Thin prep Papanicolaou smear with manual screeningon 10-12-2021 Thin prep Papanicolaou smear with manual screening 24 U/L 15-37 [facility] Work Phone: [phone] Thin prep Papanicolaou smear with manual screening 8 5-15 [facility] Work Phone: [phone] Urine phencyclidine (PCP) de tectionon 10-12-2021 Phencyclidine Ql (U) Negative [facility] Work Phone: Absolute lymphocyte counton 09-08-2021 Lymphocytes Auto (Unsp spec) [#/Vol] 2.28 10*3/uL 0.83-4.51 [facility] Work Phone: Basophil percentageon 2021 Basophils/100 WBC (Bld) 0.5 % 0-1 [facility] Work Phone: Chloride [Moles/Vol] 105 mmol/L 98-107 [facility] Work Phone: Eosinophils/100 WBC (Bld) 0.6 % 0-3 [facility] Work Phone: Glucose [Mass/Vol] 103 mg/dL 74-106 [facility] Work Phone: Comment on above: Fasting Glucose resu lt from 100 to 125 mg/dL suggests IMPAIRED HOMEOSTASIS per A.D.A. criteria.Please note revised GLUCOSE reference range effective 2017. Neutrophils (Bld) [#/Vol] 5.5 10*3/uL 2.0-7.7 [facility] Work Phone: Neutrophils/100 WBC (Bld) 64.6 % 34-64 [facility] Work Phone: Potassium [Moles/Vol] 4.0 mmol/L 3.5-5.[address] [facility] Work Phone: Sodium [Moles/Vol] 140 mmol/L 136-145 [facility] Work Phone: WBC (Bld) [#/Vol] 8.5 10*3/uL 4.5-13.0 [facility] Work Phone: Blood erythrocytes count (nu mber/volume)on 09-08-2021 RBC (Bld) [#/Vol] 5.43 10*6/uL 4.5-5.1 [facility] Work Phone: Blood hemoglobin measurement (mass/volume)on 09-08-2021 Hemoglobin (Bld) [Mass/Vol] 15.6 g/dL 13.0-16.5 [facility] Work Phone: Blood lymphocytes/100 leukoc yteson 09-08-2021 Lymphocytes/100 WBC (Bld) 26.9 % 25-45 [facility] Work Phone: Blood monocytes/100 leukocyt eson 09-08-2021 Monocytes/100 WBC (Bld) 6.8 % 3-6 [facility] Work Phone: Blood platelet mean volumeon 09-08-2021 Platelet mean volume (Bld) [Entitic vol] 9.9 fL 6.2-12.0 [facility] Work Phone: Determination of erythrocyte mean corpuscular volume (MCV)on 09-08-2021 MCV (RBC) [Entitic vol] 83.8 fL 78-96 [facility] Work Phone: Hematocrit Auto (Bld) [Volum e fraction]on 09-08-2021 Hematocrit (Bld) [Volume fraction] 45.5 % 36-47 [facility] Work Phone: Laboratory - Chemistry and C hemistry - challengeon 09-08-2021 CO2 [Moles/Vol] 27.0 mmol/L 21.0-32.0 [facility] Work Phone: Urea nitrogen/Creatinine [Mass ratio] 23.0 mg/mg 10-20 [facility] Work Phone: Laboratory - Drug toxicology on 09-08-2021 Amphetamines Ql (U) Positive [facility] Work Phone: Benzodiazepines Ql (U) Negative [facility] Work Phone: Cannabinoids Screen Ql (U) Negative [facility] Work Phone: Cocaine Ql (U) Negative [facility] Work Phone: Opiates Ql (U) Negative [facility] Work Phone: Laboratory - Hematology and Cell countson 09-08-2021 Erythrocyte distribution width (RBC) [Entitic vol] 38.5 fL 35.1-43.9 [facility] Work Phone: Erythrocyte distribution width (RBC) [Ratio] 12.7 % 11.6-14.6 [facility] Work Phone: Immature granulocytes/100 WBC (Bld) 0.600 % 0.0-0.9 [facility] Work Phone: [phone] Comment on above: IG% - Immature Granu locytes (promyelocytes, myelocytes and metamyelocytes) > 1% indicates that a LEFT SHIFT is Present. MCH (RBC) [Entitic mass] 28.7 pg 25.0-35.0 [facility] Work Phone: Nucleated RBC/100 WBC (Bld) [Ratio] 0 % 0-5 [facility] Work Phone: MCHC Auto (RBC) [Mass/Vol]on 09-08-2021 MCHC (RBC) [Mass/Vol] 34.3 g/dL 32-[address] [facility] Work Phone: No Panel Informationon 09-08 Estimated Creatinine Clearance Calc 175.35 ml/min [facility] Work Phone: [phone] Estimated GFR (MDRD) [facility] Work Phone: [phone] Comment on above: Test not performedAf rican [place] GFR Calc Estimated GFR (MDRD) Non-Af [facility] Work Phone: Comment on above: Test not performedNo n- GFR Calc Ethyl Alcohol Level < 3.0 mg/dL [facility] Work Phone: [phone] Comment on above: The serum:whole bloo d ethanol ratio is approximately 1.14and varies slightly with hematocrit. Medical Alcohol reference interval and critical value innon-tolerant individuals; 50 - 100 Impairment 100 Intoxication 100 - 250 Severe Poisoning 250 - 400 Deep/possible fatal coma Urine Barbiturates Screen Negative [facility] Work Phone: Urine Drug Screen Comment [facility] Work Phone: [phone] Comment on above: CONFIRMATORY TESTING FOR ALL [...] [facility] Urine Methadone Screen Negative [facility] Work Phone: Urine Methamphetamine-MDMA Screen Negative [facility] Work Phone: Platelets bldon 09-08-2021 Platelets (Bld) [#/Vol] 318 10*3/uL 150-450 [facility] Work Phone: Serum or plasma calcium rhona urement (mass/volume)on 09-08-2021 Calcium [Mass/Vol] 9.6 mg/dL 8.5-10.1 [facility] Work Phone: Serum or plasma creatinine m easurement (mass/volume)on 09-08-2021 Creatinine [Mass/Vol] 0.70 mg/dL 0.50-0.[address] [facility] Work Phone: Serum or plasma urea nitroge n measurement (mass/volume)on 09-08-2021 Urea nitrogen [Mass/Vol] 16 mg/dL 7-18 [facility] Work Phone: Thin prep Papanicolaou smear with manual screeningon 09-08-2021 Thin prep Papanicolaou smear with manual screening 8 5-15 [facility] Work Phone: Urine phencyclidine (PCP) de tectionon 09-08-2021 Phencyclidine Ql (U) Negative [facility] Work Phone: Vital Signs Date Time Vital Sign Value Performing Clinician Facility 05-12-2025 15:44-0400 Body height 180.[address] Sallie Solorzano MD Work Phone: [facility] 05-10-2025 02:14-0400 Body temperature 98 [degF] Dr. Sallie Solorzano MD Work Phone: [phone] [place] [address] 05-10-2025 02:14-0400 Heart rate 56 /min Dr. Sallie Solorzano MD Work Phone: [phone] [place] [address] 05-10-2025 02:14-0400 Respiratory rate 16 /min Dr. Sallie Solorzano MD Work Phone: [phone] [place] [address] 05-10-2025 02:14-0400 SaO2% (BldA) [Mass fraction] 100 % Dr. Sallie Solorzano MD Work Phone: [phone] [place] [address] 05-10-2025 00:54-0400 Body height 180.[address] Sallie Solorzano MD Work Phone: [phone] [place] [address] 05-10-2025 00:54-0400 Body mass index (BMI) [Percentile] Per age and sex 99.7 % Dr. Sallie Solorzano MD Work Phone: [phone] [place] [address] 05-10-2025 00:54-0400 Body mass index (BMI) [Ratio] 42 kg/m2 Dr. Sallie Solorzano MD Work Phone: [phone] [place] [address] 05-10-2025 00:54-0400 Body weight 136.[address] Sallie Solorzano MD Work Phone: [phone] [place] [address] 05-10-2025 00:54-0400 Diastolic blood pressure 77 mm[Hg] Dr. Sallie Solorzano MD Work Phone: [phone](565)185-922668 [place] [address] 05-10-2025 00:54-0400 Systolic blood pressure 134 mm[Hg] Dr. Sallie Solorzano MD Work Phone: 3(219)496-228068 [place] [address] 05-09-2025 13:39-0400 Body height 180.[address] Sallie Solorzano MD Work Phone: 7(311)037-010768 [place] [address] 05-09-2025 13:39-0400 Body temperature 98 [degF] Dr. Sallie Solorzano MD Work Phone: [phone])[phone] [place] [address] 05-09-2025 13:39-0400 Diastolic blood pressure 94 mm[Hg] Dr. Sallie Solorzano MD Work Phone: [phone] [place] [address] 05-09-2025 13:39-0400 Heart rate 106 /min Dr. Sallie Solorzano MD Work Phone: [phone])189-494868 [place] [address] 05-09-2025 13:39-0400 Respiratory rate 16 /min Dr. Sallie Solorzano MD Work Phone: [phone])803-837568 [place] [address] 05-09-2025 13:39-0400 SaO2% (BldA) [Mass fraction] 97 % Dr. Sallie Solorzano MD Work Phone: [phone] [address] 05-09-2025 13:39-0400 Systolic blood pressure 150 mm[Hg] Dr. Sallie Solorzano MD Work Phone: [phone])282-507268 [place] [address] 03-17-2025 03:29-0400 Body temperature 98.3 [degF] Dr. Sallie Solorzano MD Work Phone: 4(069)685-536668 [place] [address] 03-17-2025 03:29-0400 Diastolic blood pressure 87 mm[Hg] Dr. Sallie Solorzano MD Work Phone: 4(068)604-958939 [address] 03-17-2025 03:29-0400 Heart rate 99 /min Dr. Sallie Solorzano MD Work Phone: 8(425)267-919168 [place] [address] 03-17-2025 03:29-0400 Respiratory rate 18 /min Dr. Sallie Solorzano MD Work Phone: 1([phone])257-739743 [place] [address] 03-17-2025 03:29-0400 SaO2% (BldA) [Mass fraction] 97 % Dr. Sallie Solorzano MD Work Phone: [phone])796-567839 [address] 03-17-2025 03:29-0400 Systolic blood pressure 141 mm[Hg] Dr. Sallie Solorzano MD Work Phone: 7(151)852-141968 [place] [address] 03-17-2025 02:16-0400 Body height 180.[address] Sallie Solorzano MD Work Phone: [phone])760-556843 [place] [address] 03-17-2025 02:16-0400 Body mass index (BMI) [Percentile] Per age and sex 10 % Dr. Sallie Solorzano MD Work Phone: [phone] [place] [address] 03-17-2025 02:16-0400 Body mass index (BMI) [Ratio] 19.5 kg/m2 Dr. Sallie Solorzano MD Work Phone: [phone] [place] [address] 03-17-2025 02:16-0400 Body weight 63.[address] Sallie Solorzano MD Work Phone: 1(978)504-718868 [place] [address] 01-02-2025 21:52-0400 Body temperature 98.2 [degF] Dr. Sallie Solorzano MD Work Phone: 8([phone] [place] [address] 01-02-2025 21:52-0400 Diastolic blood pressure 93 mm[Hg] Dr. Sallie Solorzano MD Work Phone: 2([phone] [place] [address] 01-02-2025 21:52-0400 Heart rate 86 /min Dr. Sallie Solorzano MD Work Phone: [phone])[phone] [place] [address] 01-02-2025 21:52-0400 Respiratory rate 18 /min Dr. Sallie Solorzano MD Work Phone: [phone])[phone] [place] [address] 01-02-2025 21:52-0400 SaO2% (BldA) [Mass fraction] 99 % Dr. Sallie Solorzano MD Work Phone: [phone])[phone] [place] [address] 01-02-2025 21:52-0400 Systolic blood pressure 160 mm[Hg] Dr. Sallie Solorzano MD Work Phone: [phone] [place] [address] 01-02-2025 17:30-0400 Body mass index (BMI) [Percentile] Per age and sex 99.8 % Dr. Sallie Solorzano MD Work Phone: 1(712)[phone] [place] [address] 01-02-2025 17:30-0400 Body mass index (BMI) [Ratio] 43.3 kg/m2 Dr. Sallie Solorzano MD Work Phone: 3([phone])[phone] [place] [address] 01-02-2025 17:30-0400 Body weight 140.[address] Sallie Solorzano MD Work Phone: 9(203)[phone] [place] [address] 04-13-2024 14:03-0400 Body temperature 98.1 [degF] Krislyn Aberegg PA Work Phone: [facility] 04-13-2024 14:03-0400 Body weight 124.6 kg Krislyn Aberegg PA Work Phone: [facility] 04-13-2024 14:03-0400 Diastolic blood pressure 84 mm[Hg] Krislyn Aberegg PA Work Phone: [facility] 04-13-2024 14:03-0400 Heart rate 65 /min Krislyn Aberegg PA Work Phone: [facility] 04-13-2024 14:03-0400 Respiratory rate 16 /min Krislyn Aberegg PA Work Phone: [facility] 04-13-2024 14:03-0400 SaO2% (BldA) [Mass fraction] 98 % Krislyn Aberegg PA Work Phone: [facility] 04-13-2024 14:03-0400 Systolic blood pressure 132 mm[Hg] Krislyn Aberegg PA Work Phone: [facility] 12-27-2022 18:00-0400 Diastolic blood pressure 78 mm[Hg] [facility] 12-27-2022 18:00-0400 Heart rate 98 /min [facility] 12-27-2022 18:00-0400 Respiratory rate 16 /min [facility] 12-27-2022 18:00-0400 SaO2% (BldA) [Mass fraction] 100 % [facility] 12-27-2022 18:00-0400 Systolic blood pressure 134 mm[Hg] [facility] 12-26-2022 23:57-0400 Body temperature 97.8 [degF] [facility] 12-26-2022 15:32-0400 Body height 180.34 cm [facility] 12-26-2022 15:32-0400 Body mass index (BMI) [Percentile] Per age and sex 99.8 % [facility] 12-26-2022 15:32-0400 Body mass index (BMI) [Ratio] 42.1 kg/m2 [facility] 12-26-2022 15:32-0400 Body weight 137.07 kg [facility] 12-24-2022 16:00-0400 Diastolic blood pressure 90 mm[Hg] [facility] 12-24-2022 16:00-0400 Heart rate 90 /min [facility] 12-24-2022 16:00-0400 Respiratory rate 16 /min [facility] 12-24-2022 16:00-0400 SaO2% (BldA) [Mass fraction] 98 % [facility] 12-24-2022 16:00-0400 Systolic blood pressure 140 mm[Hg] [facility] 12-24-2022 14:15-0400 Body mass index (BMI) [Percentile] Per age and sex 99.8 % [facility] 12-24-2022 14:15-0400 Body mass index (BMI) [Ratio] 42.5 kg/m2 [facility] 12-24-2022 14:15-0400 Body temperature 97.6 [degF] [facility] 12-24-2022 14:15-0400 Body weight 138.34 kg [facility] 08-06-2022 15:41-0500 Body temperature 98.2 [degF] Ashley Ruiz MD Work Phone: [facility] 08-06-2022 15:41-0500 Body weight 134.4 kg Ashley Ruiz MD Work Phone: [facility] 08-06-2022 15:41-0500 Diastolic blood pressure 79 mm[Hg] Ashley Ruiz MD Work Phone: [facility] 08-06-2022 15:41-0500 Heart rate 91 /min Ashley Ruiz MD Work Phone: [facility] 08-06-2022 15:41-0500 Respiratory rate 20 /min Ashley Ruiz MD Work Phone: [facility] 08-06-2022 15:41-0500 SaO2% (BldA) [Mass fraction] 99 % Ashley Ruiz MD Work Phone: [facility] 08-06-2022 15:41-0500 Systolic blood pressure 134 mm[Hg] Ashley Ruiz MD Work Phone: [facility] 06-28-2022 12:43-0400 Diastolic blood pressure 78 mm[Hg] [facility] Work Phone: 06-28-2022 12:43-0400 Heart rate 66 /min [facility] Work Phone: 06-28-2022 12:43-0400 Respiratory rate 18 /min [facility] Work Phone: 06-28-2022 12:43-0400 SaO2% (BldA) [Mass fraction] 99 % [facility] Work Phone: 06-28-2022 12:43-0400 Systolic blood pressure 115 mm[Hg] [facility] Work Phone: 06-28-2022 09:44-0400 Body height 180.34 cm [facility] Work Phone: 06-28-2022 09:44-0400 Body mass index (BMI) [Percentile] Per age and sex 99.7 % [facility] Work Phone: 06-28-2022 09:44-0400 Body mass index (BMI) [Ratio] 40.8 kg/m2 [facility] Work Phone: 06-28-2022 09:44-0400 Body temperature 98.2 [degF] [facility] Work Phone: 06-28-2022 09:44-0400 Body weight 133 kg [facility] Work Phone: 06-23-2022 09:04-0400 Diastolic blood pressure 99 mm[Hg] [facility] Work Phone: 06-23-2022 09:04-0400 Heart rate 87 /min [facility] Work Phone: 06-23-2022 09:04-0400 Respiratory rate 16 /min [facility] Work Phone: 06-23-2022 09:04-0400 SaO2% (BldA) [Mass fraction] 96 % [facility] Work Phone: 06-23-2022 09:04-0400 Systolic blood pressure 143 mm[Hg] [facility] Work Phone: 06-23-2022 06:00-0400 Body temperature 98.1 [degF] [facility] Work Phone: 06-21-2022 13:06-0400 Body height 177.8 cm [facility] Work Phone: 06-21-2022 13:06-0400 Body mass index (BMI) [Percentile] Per age and sex 99.8 % [facility] Work Phone: 06-21-2022 13:06-0400 Body mass index (BMI) [Ratio] 42 kg/m2 [facility] Work Phone: 06-21-2022 13:06-0400 Body weight 133 kg [facility] Work Phone: 06-14-2022 03:41-0400 Body temperature 97 [degF] Chapis Son DO Work Phone: [facility] 06-14-2022 03:41-0400 Diastolic blood pressure 89 mm[Hg] Chapis Son DO Work Phone: [facility] 06-14-2022 03:41-0400 Heart rate 66 /min Chapis Son DO Work Phone: [facility] 06-14-2022 03:41-0400 Respiratory rate 18 /min Chapis Son DO Work Phone: [facility] 06-14-2022 03:41-0400 SaO2% (BldA) [Mass fraction] 97 % Chapis Son DO Work Phone: [facility] 06-14-2022 03:41-0400 Systolic blood pressure 145 mm[Hg] Chapis Son DO Work Phone: [facility] 06-13-2022 16:01-0400 Body weight 132 kg Chapis Son DO Work Phone: [facility] 01-08-2022 19:15-0400 Body temperature 98.2 [degF] [facility] Work Phone: 01-08-2022 19:15-0400 Diastolic blood pressure 72 mm[Hg] [facility] Work Phone: 01-08-2022 19:15-0400 Heart rate 63 /min [facility] Work Phone: 01-08-2022 19:15-0400 Respiratory rate 16 /min [facility] Work Phone: 01-08-2022 19:15-0400 SaO2% (BldA) [Mass fraction] 98 % [facility] Work Phone: 01-08-2022 19:15-0400 Systolic blood pressure 132 mm[Hg] [facility] Work Phone: 01-08-2022 15:08-0400 Body height 177.8 cm [facility] Work Phone: 01-08-2022 15:08-0400 Body mass index (BMI) [Ratio] 40.1 kg/m2 [facility] Work Phone: 01-08-2022 15:08-0400 Body weight 127 kg [facility] Work Phone: 12-03-2021 21:50-0400 Body height 175.26 cm [facility] Work Phone: 12-03-2021 21:50-0400 Body mass index (BMI) [Ratio] 39.9 kg/m2 [facility] Work Phone: 12-03-2021 21:50-0400 Body temperature 97.4 [degF] [facility] Work Phone: 12-03-2021 21:50-0400 Body weight 122.46 kg [facility] Work Phone: 12-03-2021 21:50-0400 Diastolic blood pressure 81 mm[Hg] [facility] Work Phone: 12-03-2021 21:50-0400 Heart rate 89 /min [facility] Work Phone: 12-03-2021 21:50-0400 Respiratory rate 18 /min [facility] Work Phone: 12-03-2021 21:50-0400 SaO2% (BldA) [Mass fraction] 97 % [facility] Work Phone: 12-03-2021 21:50-0400 Systolic blood pressure 137 mm[Hg] [facility] Work Phone: 11-26-2021 00:08-0400 Diastolic blood pressure 82 mm[Hg] [facility] Work Phone: 11-26-2021 00:08-0400 Heart rate 76 /min [facility] Work Phone: 11-26-2021 00:08-0400 Respiratory rate 16 /min [facility] Work Phone: 11-26-2021 00:08-0400 SaO2% (BldA) [Mass fraction] 97 % [facility] Work Phone: 11-26-2021 00:08-0400 Systolic blood pressure 141 mm[Hg] [facility] Work Phone: 11-25-2021 19:41-0400 Body mass index (BMI) [Ratio] 40.7 kg/m2 [facility] Work Phone: 11-25-2021 19:41-0400 Body temperature 98.6 [degF] [facility] Work Phone: 11-25-2021 19:41-0400 Body weight 125.19 kg [facility] Work Phone: 10-25-2021 13:08-0500 Body temperature 98.1 [degF] [facility] Work Phone: 10-25-2021 13:08-0500 Diastolic blood pressure 86 mm[Hg] [facility] Work Phone: 10-25-2021 13:08-0500 Heart rate 94 /min [facility] Work Phone: 10-25-2021 13:08-0500 Respiratory rate 18 /min [facility] Work Phone: 10-25-2021 13:08-0500 SaO2% (BldA) [Mass fraction] 95 % [facility] Work Phone: 10-25-2021 13:08-0500 Systolic blood pressure 124 mm[Hg] [facility] Work Phone: 10-24-2021 16:34-0500 Body mass index (BMI) [Ratio] 39 kg/m2 [facility] Work Phone: 10-24-2021 16:34-0500 Body weight 120 kg [facility] Work Phone: 10-15-2021 18:22-0500 Diastolic blood pressure 82 mm[Hg] [facility] Work Phone: 10-15-2021 18:22-0500 Heart rate 88 /min [facility] Work Phone: 10-15-2021 18:22-0500 Respiratory rate 16 /min [facility] Work Phone: 10-15-2021 18:22-0500 SaO2% (BldA) [Mass fraction] 98 % [facility] Work Phone: 10-15-2021 18:22-0500 Systolic blood pressure 136 mm[Hg] [facility] Work Phone: 10-15-2021 05:17-0500 Body temperature 97.7 [degF] [facility] Work Phone: 10-12-2021 20:52-0500 Body mass index (BMI) [Ratio] 39 kg/m2 [facility] Work Phone: 10-12-2021 20:52-0500 Body weight 120 kg [facility] Work Phone: 09-11-2021 20:40-0500 Body temperature 97.16 [degF] DR CLAUDIA BURNHAM DO [facility] 09-11-2021 20:40-0500 Diastolic blood pressure 85 mm[Hg] DR CLAUDIA BURNHAM DO [facility] 09-11-2021 20:40-0500 Heart rate 80 /min DR CLAUDIA BURNHAM DO [facility] 09-11-2021 20:40-0500 Respiratory rate 18 /min DR CLAUDIA BURNHAM DO [facility] 09-11-2021 20:40-0500 Systolic blood pressure 132 mm[Hg] DR CLAUDIA BURNHAM DO [facility] 09-08-2021 02:30-0500 Diastolic blood pressure 78 mm[Hg] [facility] Work Phone: 09-08-2021 02:30-0500 Heart rate 80 /min [facility] Work Phone: 09-08-2021 02:30-0500 Respiratory rate 16 /min [facility] Work Phone: 09-08-2021 02:30-0500 Systolic blood pressure 136 mm[Hg] [facility] Work Phone: 09-07-2021 22:59-0500 Body mass index (BMI) [Ratio] 37.3 kg/m2 [facility] Work Phone: 09-07-2021 22:59-0500 Body temperature 97.6 [degF] [facility] Work Phone: 09-07-2021 22:59-0500 Body weight 114.75 kg [facility] Work Phone: 09-07-2021 22:59-0500 SaO2% (BldA) [Mass fraction] 100 % [facility] Work Phone: Encounters Encounter Date Encounter Type Care Provider Facility Start: 07-06-2025 ambulatory Jamie Cameron [place] [place]: 06-08-2025 End: 06-08-[address] Jamie Cameron MD -[facility] Work Phone: Start: 06-08-2025 End: 06-08-[address] Sallie Solorzano MD Work Phone: -[facility] Start: 05-13-2025 End: 05-13-[address] Jamie Cameron MD -[facility] Work Phone: Start: 05-13-2025 End: 05-13-[address] Sallie Solorzano MD Work Phone: -[facility] Start: 05-10-2025 End: 05-10-2025 Emergency department patient visit Dr. Sallie Solorzano MD Work Phone: -Emergency Department Work Phone: Start: 05-09-2025 End: 05-09-2025 Emergency department patient visit Dr. Sallie Solorzano MD Work Phone: -Emergency Department Work Phone: Start: 03-17-2025 End: 03-17-2025 Emergency department patient visit Dr. Sallie Solorzano MD Work Phone: -Emergency Department Work Phone: Start: 01-02-2025 End: 01-02-2025 Emergency department patient visit Dr. Marek Booker DO -Emergency Department Work Phone: Start: 08-20-2024 End: 08-20-2024 ambulatory SALLIE R [facility] Start: 08-14-2024 End: 08-14-2024 ambulatory [facility] Start: 04-25-2024 End: 04-25-2024 ambulatory FABBY [facility] Start: 04-13-2024 End: 04-13-2024 ambulatory SALLIE CASTELLANOS RASHAD Facility:[facility] Start: 04-13-2024 End: 04-13-2024 Patient encounter procedure Christos NELSON Work Phone: [facility] Comment on above: Skin infection (Prim dominique Dx) Start: 02-12-2024 End: 02-12-2024 ambulatory [facility] Start: 12-27-2023 End: 12-27-2023 ambulatory SALLIE R [facility] Start: 11-29-2023 End: 11-29-2023 ambulatory SALLIE R [facility] Start: 10-31-2023 End: 10-31-2023 ambulatory SALLIE R [facility] Start: 10-22-2023 End: 10-22-2023 ambulatory FABBY [facility] Start: 10-08-2023 End: 10-08-2023 ambulatory FABBY [facility] Start: 09-20-2023 End: 09-20-2023 ambulatory SELF REFERRED [facility] Start: 08-15-2023 End: 08-16-2023 ambulatory [facility]BY [facility] Facility:[facility] Start: 06-20-2023 End: 10-18-2023 ambulatory BRITTANY MAR APRN Facility:[facility] Start: 05-30-2023 End: 05-31-2023 ambulatory [id number] RASHAD RIZO Facility:[facility] Start: 03-22-2023 End: 03-23-2023 ambulatory FABBY WILLINGHAM Facility:[facility] Start: 01-24-2023 End: 01-24-2023 Subsequent hospital visit by physician Xr [facility] Work Phone: Radiology Comment on above: Acute cough [R05.1] Start: 12-26-2022 End: 12-27-2022 Emergency department patient visit [facility] Start: 12-24-2022 End: 12-24-2022 Emergency department patient visit [facility] Start: 08-06-2022 End: 08-06-2022 Emergency department patient visit Ashley Ruiz MD Work Phone: [facility] Start: 06-28-2022 End: 06-28-2022 [facility] Start: 06-23-2022 End: 06-26-2022 Evaluation and management of inpatient REFERRED SELF [facility] Start: 06-21-2022 End: 06-23-2022 Emergency department patient visit [facility] Start: 06-13-2022 End: 06-14-2022 Emergency department patient visit Chapis Justice Kamaljit FORD Work Phone: [facility] Start: 01-08-2022 End: 01-08-2022 Emergency department patient visit [facility] Start: 12-03-2021 End: 12-04-2021 Emergency department patient visit [facility] Start: 11-26-2021 End: 12-03-2021 Evaluation and management of inpatient SALLIE [facility] Start: 11-25-2021 End: 11-26-2021 Emergency department patient visit [facility] Start: 10-24-2021 End: 10-25-2021 [facility] Start: 10-12-2021 End: 10-15-2021 Emergency department patient visit [facility] Start: 09-11-2021 End: 09-11-2021 Emergency department patient visit DR CLAUDIA BURNHAM DO [facility] Start: 09-07-2021 End: 09-08-2021 Emergency department patient visit [facility] Procedures Date Procedure Procedure Detail Performing Clinician Start: 06-08-2025 Plain x-ray of hand Dr. Sallie Solorzano MD Work Phone: Start: 05-10-2025 Plain x-ray of hand Dr. Sallie Solorzano MD Work Phone: Start: 01-02-[address] Sallie Solorzano MD Work Phone: Start: 01-02-2025 Methadone measuremen t, urine Dr. Sallie Solorzano MD Work Phone: Start: 01-24-2023 Radiologic exam ches t 2 views Evan Oneill APRN.[facility] Work Phone: Start: 08-06-2022 DRUGS OF ABUSE WITH THC, URINE-FABIO Ruiz MD Work Phone: Start: 06-13-2022 DRUGS OF ABUSE WITH THC, URINE-FABIO Nation Justice Mari DO Work Phone: Start: 01-08-2022 End: [...] Pertussis Vaccines (7 - Td or Tdap) [facility] Start: 05-16-2027 Urine microalbumin profile DTaP,Tdap,Td Vaccine (7 - Td or Tdap) [facility] Start: 05-10-2025 Application short arm splint forearm-hand static APPLY FOREARM SPLINT [facility] Start: 05-10-2025 [facility] Start: 05-10-2025 Plain x-ray of hand Hand Min 3 Views [facility] Start: 05-10-2025 XR Hand GE 3 Views [facility] Start: 05-09-2025 Plain x-ray of hand Hand Min 3 Views [facility] Start: 03-17-2025 Smpl repair scalp/neck/ax/genit/trun k 2.6-7.5cm RPR S/N/AX/GEN/TRNK2.6-7.5CM [facility] Start: 03-17-2025 [facility] Start: 01-02-2025 [facility] Start: 01-02-2025 [facility] Start: 05-04-2024 Covid-19 Vaccine ( season) Covid-19 Vaccine () [facility] Start: 05-04-2024 Influenza vaccination Influenza Vaccine (#1) [facility] Start: 12-22-2023 Anxiety Screening Anxiety Screening [facility] Start: 12-22-2023 Depression Screening Depression Screening [facility] Start: 12-22-2023 Hepatitis C screening Hepatitis C Screening [facility] Start: 12-22-2023 HIV screening HIV Screening [facility] Start: 11-26-2023 Meningococcal B Vaccine: Consider Based On Risk (2 of 2 - Risk Bexsero 2-dose series) Meningococcal B Vaccine: Consider Based On Risk (2 of 2 - Risk Bexsero 2-dose series) [facility] Start: 05-04-2023 Covid-19 Vaccine () Covid-19 Vaccine () [facility] Start: 12-26-2022 Lamotrigine measurement [facility] Start: 12-26-2022 Referral to service [facility] Start: 12-26-2022 End: 12-26-2022 Suicide precautions [facility] Start: 06-28-2022 Suicide precautions [facility] Work Phone: Start: 06-21-2022 Referral to service [facility] Work Phone: Start: 06-21-2022 End: 06-21-2022 Suicide precautions [facility] Work Phone: Start: 06-16-2022 End: 06-16-2022 ambulatory 06/16/2022 Telehealth Psychiatry Fabby Willingham, DIRECTOR OF CLINICAL SERVICES-FUNERAL DIRECTOR [address] [facility] [address] [place] [address] [facility] Out[facility] Start: 05-04-2022 FLU (#1) FLU (#1) [facility] Start: 12-31-2021 Well Visit Well Visit [facility] Start: 2021 MenACWY (2 - 2-dose series) MenACWY (2 - 2-dose series) [facility] Start: 2021 MenB (1 of 2 - MenB 2-Dose Series) MenB (1 of 2 - MenB 2-Dose Series) [facility] Start: 10-21-2021 AIMS 6 Month Check AIMS 6 Month Check [facility] Start: 08-17-2021 COVID-19 (3 - Booster for Pfizer series) COVID-19 (3 - Booster for Pfizer series) [facility] Start: 2020 Vision Screening Vision Screening [facility] Start: 12-22-2019 Peds To Adult Transition Annual Assessment Peds To Adult Transition Annual Assessment [facility] Start: 2017 Peds To Adult Transition Initial Discussion Peds To Adult Transition Initial Discussion [facility] Patient Education [facility] Work Phone: Patient referral [facility] Work Phone: Immunizations Immunization Date Immunization Notes Care Provider Fa keith 10-29-2023 influenza virus vacc ine, unspecified formulation Christos NELSON Work Phone: [facility] 08-06-2022 influenza, injectabl e, quadrivalent, preservative free Ashley Ruiz MD Work Phone: [facility] 06-22-2021 PFIZER (purple cap) COVID-19, mRNA, LNP-S, 30mcg/0.3mL dose Chapis Son DO Work Phone: [facility] 05-30-2021 influenza, injectabl e, quadrivalent, preservative free Chapis Son DO Work Phone: [facility] 05-30-2021 PFIZER (purple cap) COVID-19, mRNA, LNP-S, 30mcg/0.3mL dose Chapis Son DO Work Phone: [facility] 07-16-2019 hepatitis B vaccine, pediatric or pediatric/adolescent dosage Chapis Son DO Work Phone: [facility] 12-25-2018 Human Papillomavirus 9-valent vaccine Chapis Son DO Work Phone: [facility] 05-22-2018 Human Papillomavirus 9-valent vaccine Chapis Son DO Work Phone: [facility] 05-16-2017 meningococcal polysaccharide (groups A, C, Y and W-135) diphtheria toxoid conjugate vaccine (MCV4P) Chapis Son DO Work Phone: [facility] 05-16-2017 tetanus toxoid, redu luz maria diphtheria toxoid, and acellular pertussis vaccine, adsorbed Chapis Son DO Work Phone: [facility] 09-22-2015 influenza, live, intranasal, quadrivalent Chapis Son DO Work Phone: [facility] 06-17-2012 influenza virus vacc ine, live, attenuated, for intranasal use Chapis Son DO Work Phone: [facility] 05-15-2012 influenza virus vacc ine, live, attenuated, for intranasal use Chapis Son DO Work Phone: [facility] 12-26-2010 diphtheria, tetanus toxoids and acellular pertussis vaccine Chapis Son DO Work Phone: [facility] 12-26-2010 measles, mumps, rube lla, and varicella virus vaccine Chapis Son DO Work Phone: [facility] 12-26-2010 poliovirus vaccine, inactivated Chapis Son DO Work Phone: [facility] 09-30-2009 hepatitis A vaccine, pediatric/adolescent dosage, 2 dose schedule Chapis Son DO Work Phone: [facility] 09-30-2009 pneumococcal conjuga te vaccine, 7 valent Chapis Son DO Work Phone: [facility] 07-23-2007 diphtheria, tetanus toxoids and acellular pertussis vaccine Chapis Son DO Work Phone: [facility] 07-23-2007 haemophilus influenz ae type b vaccine, HbOC conjugate Ariesislyn Absaul PA Work Phone: [facility] 07-23-2007 haemophilus influenz ae type b vaccine, PRP-T conjugate Chapis Son DO Work Phone: [facility] 04-01-2007 hepatitis A vaccine, pediatric/adolescent dosage, 2 dose schedule Chapis Son DO Work Phone: [facility] 04-01-2007 hepatitis A vaccine, unspecified formulation Chapis Son DO Work Phone: [facility] 12-31-2006 diphtheria, tetanus toxoids and acellular pertussis vaccine Chapis Son DO Work Phone: [facility] 12-31-2006 DTaP-hepatitis B and poliovirus vaccine Chapis Son DO Work Phone: [facility] 12-31-2006 haemophilus influenz ae type b vaccine, HbOC conjugate Krislyn Aberegg PA Work Phone: [facility] 12-31-2006 haemophilus influenz ae type b vaccine, PRP-T conjugate Chapis Son DO Work Phone: [facility] 12-31-2006 hepatitis B vaccine, pediatric or pediatric/adolescent dosage Chapis Son DO Work Phone: [facility] 12-31-2006 measles, mumps and rubella virus vaccine Chapis Son DO Work Phone: [facility] 12-31-2006 measles, mumps, rube lla, and varicella virus vaccine Chapis Son DO Work Phone: [facility] 12-31-2006 pneumococcal conjuga te vaccine, 7 valent Chapis Son DO Work Phone: [facility] 12-31-2006 poliovirus vaccine, inactivated Chapis Son DO Work Phone: [facility] 12-31-2006 varicella virus vaccine Esth er Son DO Work Phone: [facility] 11-22-2006 diphtheria, tetanus toxoids and acellular pertussis vaccine Chapis Son DO Work Phone: [facility] 11-22-2006 DTaP-hepatitis B and poliovirus vaccine Chapis Son DO Work Phone: [facility] 11-22-2006 haemophilus influenz ae type b vaccine, HbOC conjugate Christos Orozco PA Work Phone: [facility] 11-22-2006 haemophilus influenz ae type b vaccine, PRP-T conjugate Chapis Son DO Work Phone: [facility] 11-22-2006 hepatitis B vaccine, pediatric or pediatric/adolescent dosage Chapis Son DO Work Phone: [facility] 11-22-2006 pneumococcal conjuga te vaccine, 7 valent Chapis Son DO Work Phone: [facility] 11-22-2006 poliovirus vaccine, inactivated Chapis Son DO Work Phone: [facility] 03-17-2006 diphtheria, tetanus toxoids and acellular pertussis vaccine Chapis Son DO Work Phone: [facility] 03-17-2006 DTaP-hepatitis B and poliovirus vaccine Chapis Son DO Work Phone: [facility] 03-17-2006 haemophilus influenz ae type b vaccine, HbOC conjugate Christos NELSON Work Phone: [facility] 03-17-2006 haemophilus influenz ae type b vaccine, PRP-T conjugate Chapis Son DO Work Phone: [facility] 03-17-2006 hepatitis B vaccine, pediatric or pediatric/adolescent dosage Chapis Son DO Work Phone: [facility] 03-17-2006 pneumococcal conjuga te vaccine, 7 valent Chapis Son DO Work Phone: [facility] 03-17-2006 poliovirus vaccine, inactivated Chapis Son DO Work Phone: [facility] Payers Date Payer Category Payer Self-pay [id number] 2022 Medicaid [employer] [place] [id number] 2022-[place] [phone] [address] [place] [address] Medicaid [id number] 2022 Unknown [id number] 2019 Unknown [id number]. [id number] 2005 Unknown [id number] 2.16.840.1.676788.3.579.2.479 2005 Unknown [id number] 2.16.840.1.586965.3.579.2.479 2005 Unknown [id number] 2.16.840.1.359850.3.579.2.479 2005 Unknown [id number] 2.16.840.1.589965.3.579.2.479 2005 Unknown [id number] 2.16.840.1.713167.3.579.2.479 1982 Unknown [id number] 2.16.840.1.817829.3.579.2.903 1982 Unknown [id number] 2.16.840.1.867362.3.579.2.479 1982 Unknown [id number] 2.16.840.1.086949.3.579.2.479 1982 Unknown [id number] 2.16.840.1.974166.3.579.2.479 1982 Unknown [id number] 2.16.840.1.910441.3.579.2.479 1982 Unknown [id number] 2.16.840.1.028070.3.579.2.479 1978 Unknown [id number] 2.840.1.995286.3.579.2.419 1978 Unknown [id number] 2.16840.1.750269.3.579.2.419 1978 Unknown [id number] 2.840.1.700824.3.579.2.419 1959 Unknown [id number] Unknown [id number] Unknown [id number] 2.16840.1.708777.3.579.2.462 Unknown [id number] 2.16840.1.043682.3.579.2.462 Unknown [id number] 2.16.840.1.047296.3.579.2.462 Unknown [id number] 2.16.840.1.458830.3.579.2.462 Unknown [id number] 2.16.840.1.417201.3.579.2.462 Unknown [id number] 2.16.840.1.675068.3.579.2.462 Unknown [id number] 2.16.840.1.136078.3.579.2.462 Unknown [id number] 2.16.840.1.645312.3.579.2.462 Social History Date Type Detail Facility [facility] Start: 2005 Sex Assigned At Male A [facility] Start: 12-03-2021 End: 12-26-2022 Tobacco smoking status NHIS Unknown if ever smoked [facility] Start: 09-03-2019 End: 08-06-2022 Tobacco smoking status NHIS Occasional tobacco smoker [facility] Start: 09-03-2019 History of tobacco use Tobacco Use Types Packs/Day Years Used Date Smoking Tobacco: Some Days Vaping Started: 2019 Smokeless Tobacco: Never [facility] Start: 06-13-2022 End: 04-13-2024 Tobacco use and exposure Smokeless tobacco non-user [facility] Start: 06-13-2022 End: 08-06-2022 Alcohol intake Ex-drinker (finding) [facility] Start: 04-18-2021 History SDOH Alcohol Frequency 1 [facility] Start: 2005 Sex Assigned At Not on file A [facility] Start: 06-03-2022 End: 06-13-2022 Exposure to SARS-CoV-2 (event) Unable to assess [facility] Start: 08-06-2022 Tobacco Comment May 2022 last use [facility] Start: 08-06-2022 Alcohol Comment last consumed 2-3 years ago [facility] Start: 01-17-2023 End: 04-13-2024 Tobacco smoking status NHIS Never smoked tobacco [facility] History of tobacco use Passive smoker [facility] Start: 01-24-2023 End: 04-13-2024 Alcohol intake Not Asked [facility] Start: 01-24-2023 End: 04-13-2024 History of Social function [facility] Start: 01-24-2023 End: 04-13-2024 Tobacco use panel [facility] Start: 01-17-2023 Tobacco Comment parents smoke [facility] Start: 03-17-2025 End: 05-12-2025 Tobacco smoking status NHIS Smokes tobacco daily (finding) [facility] Clinical Notes 09-11-2021 to 06-08-2025 Note Date & Type Note Facility 06-08-2025 Progress note [facility] 06-08-2025 Radiology Diagnostic study note [facility] [address] [place], [place] [address] Hand Min 3 Views MR#: [id number] Acct: [id number] Name: MANNY MCNALLY Rep #: [id number] : 2005 M 19 From: Neal Holloway MD PCP: Dr. Sallie Solorzano MD Status: DEP AMB Study:Hand Min 3 Views Date of Exam: 02/25 Exam# [id number] Ordering Dr: Jamie Cameron MD PROCEDURE: HAND MIN 3 VIEWS 06/08/2025 REASON FOR EXAM: FU fracture. TECHNIQUE: Procedure Code: SHEILA Modality: DX Procedure: HAND MIN 3 VIEWS Laterality: Left. COMPARISON: Left hand study of 05/10/2025. RAD/Hand Min 3 Views IMPRESSION: Again seen is a fracture of the neck of the left 5th metacarpal bone, with significant posteromedial apex angulation noted, not clearly changed since the prior study given differences in positioning. The fracture line remains apparent. Reading Location: [facility] CC: Dr. Jamie Cameron MD; Dr. Sallie Solorzano MD ~ Entrepreneur: Signed [facility] 06-08-2025 Progress note Note Date/Time June 08, 2025 3:34pm [facility] [address] [place] [address] [address] [place] [address] OFFICE VISIT Date of Service: 06/08/25 MR#: [id number] Acct: [id number] Name: DALIMANNY MAR Rep #: [id number] : 2005 Provider: Dr. Ty Cameron MD Age/Sex: 19/M Location: [facility] Status: Signed Intake Vital Signs 05/12/25 15:44 Height 5 ft 11 in Intake Visit Reasons: LEFT HAND Chief Complaint: Left Hand Follow-Up Accompanied by: Self Is patient in pain?: Yes Allergies No Known Allergies Allergy (Verified 06/08/25 15:15) Medications ?Medication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 assessment questions. Pt requested to go to bed early without incident. Q15 min safety checks maintained. Who is Involved in Treatment: Family ELOS: 5 days Expected Discharge Date: 06/28/2022 Discharge Plan: on - going Treatment Plan Created/Updated By: Blanka Silveira RNUnSouthview Medical Center10-23-2022 NotePatient was observed by mortgage or loan underwriter to be talking to peer standing over peer during free time on the unit. Write then witnessed peer stand up in front of patient and patient was observed to take his hand and place them on his peers shoulders. Patient stated "He got in my face I needed him to back off" Music Education Director stated to patient that touching other peers is not allowed on the unit and instructed patients to take a step back and to remove his hands. Music Education Director then instructed patients to return to their respective rooms for quiet time. Music Education Director debriefed with patient on event and and provided support. Patient stated that he wanted to make sure the peer got out of his personal area and mortgage or loan underwriter educated patient on unit rules for safety.[facility]10-23-2022 Note Attestation signed by Ronit Raygoza MD [...] Autism spectrum who was admitted to the [facility] on 06/23/2022 for management of depression with suicidal thoughts with plan to cut neck with glass. Patient was recently discharged from inpatient psychiatric hospitalization at [facility] for similar concerns. Per Nursing: Patient slept throughout the night. Eating adequately. Patient has been noted to be impulsive and immature but engaged during groups. Per Patient: Patient reports mood as "ok". Patient's main stressor is school and being bullied. Denies SI/HI/AVH. Spoke to sister over the phone. Patient states that he may start to approach the bullying differently by walking away from the situation, ignoring them, and listening to music. Per chart review: Patient has been noted to require restraints at [facility] due to threatening to punch staff. [...] contact is appropriate. Behavior is cooperative. Mood: "ok" Affect: dysphoric Speech and Language: normal rate [...] melatonin 3mg Consent obtained from Rhea moreno [phone] Continue observation on unit for safety or self-harm Encourage participation in group and unit milieu Supportive Psychotherapy Discharge in coordination with social work Eze Herzog MD [facility] Department of Psychiatry, [id number] Health10-22-2022 Note Attestation signed by Ronit Raygoza MD [...] Autism spectrum who was admitted to the [facility] on 06/23/2022 for management of depression with suicidal thoughts with plan to cut neck with glass. Patient was recently discharged from inpatient psychiatric hospitalization at [facility] for similar concerns. Per Nursing: Patient slept throughout the night. Eating adequately. Patient has been noted to be irritable. He did have an outburst and yelled at staff disrespectfully yesterday, but did become calm after some time. Per Patient: Patient was observed in the milieu interacting well with other patients and laughing. Patient reports mood as "ok". States he had felt "ok" since leaving [facility]. Patient's main stressor is school and being bullied. States that he has noticed benefit from his medications. States his latuda and lamictal were started more recently than zoloft, have helped his anger somewhat. Reports his goal is to get better. Didn't want to go to school because of bullying. Per chart review: Patient has been noted to require restraints at [facility] due to threatening to punch staff. [...] contact is appropriate. Behavior is cooperative. Mood: "ok" Affect: dysphoric Speech and Language: normal rate [...] tylenol, melatonin 3mg Consent obtained from auntRhea [phone] Continue observation on unit for safety or self-harm Encourage participation in group and unit milieu Supportive Psychotherapy Discharge in coordination with social work Eze Herzog MD [facility] Department of Psychiatry, [id number] Medical Center10-22-2022 NotePsychosocial Narrative Summary Subject: Manny Mcnally Reason for admission: Pt presents to [facility] from home for evaluation and treatment of depression with suicidal ideation. Pt indicated that the depression recently was amplified since the suicide of a friend of his roughly 3 weeks ago. Pt was also recently discharged from [facility] for similar reasons and a week after discharging, stayed hoem from school for the day and locked himself in the bathroom. When confronted by his sister, pt threatened to cut himself on the arms and throat if she summoned police. Pt however was not able to express a mood change. Diagnosis and discharge plan: Major depressive disorder 3-5 days inpatient with outpatient followup.[facility] 06-14-2022 Emergency department Note* Lexis Dodson RN - 06/14/2022 3:48 AM EDT Pt [facility]8100 staff [facility] w/o [facility]. [facility]10-12-2022 Emergency department Note* Lexis Dodson RN - 06/14/2022 3:48 AM EDT Pt left unit w/8100 staff and [facility] w/o incident. * Lexis Dodson RN - 06/14/2022 3:45 AM EDT 8100 [facility] to bring pt to 8100. * [...] Cap refill <2 seconds. documented in this encounterC[facility]10-12-[facility] Emergency department Note* Lexis Dodson RN - 06/14/2022 3:45 AM EDT 8100 and [facility] arrived to bring pt to 8100. [facility]10-12-2022 Emergency department Note* Lexis Dodson RN - 06/14/2022 3:33 AM EDT 8100 called for report. Report given to RINKU Mendez on 8100. [facility]10-12-2022 Emergency department Note* Lexis Dodson RN - 06/14/2022 3:17 AM EDT Report received from Vicky Pretty RN [facility]10-11-2022 Emergency department Note* Kalina Verdin MA - 06/13/2022 8:21 PM EDT Patient given food tray [facility]10-11-2022 Emergency department Note* Zoe Guzman - 06/13/2022 7:06 PM EDT Report handed off to Kalina Saez [facility]10-11-2022 Emergency department Note* Zoe Guzman - 06/13/2022 7:03 PM EDT Food order placed [facility]10-11-2022 Emergency department Note* Doris Levi RN - 06/13/2022 5:24 PM EDT Pt sitting in chair. NAD. Respirations easy and even. [facility]10-11-2022 Emergency department Note* Doris Levi RN - 06/13/2022 4:32 PM EDT Patient sitting in corner of lobby. NAD. Respirations easy and even. Family member remains by pt side. [facility]10-11-2022 Emergency department Triage note* Doris Levi RN [...] Denies recent illness. Cap refill <2 seconds. [facility]01-09-2022 Hospital Discharge instructions Patient Education 09/11/2021 20:52:22 [facility] Clearance You have been evaluated today for any illness or injury that may require special attention while you are in [facility]. It appears that your condition is stable at this time. You have been medically cleared for [facility]p. Follow any special advice given regarding the care of any illness or injury present. Notify usp personnel if there is any worsening of your symptoms or if new symptoms appear. When you are released from [facility]p, follow up with your own medical doctor or the clinic that you havebeen referred to. If you do not know where to go after you are released, contact us for referral information. [id number] [employer]. [address] [place] [address], [place] [address]. All rights reserved. This information is not intended as a substitute for professional medical care. Always follow yourhealthcare professional's instructions. Follow Up Care 09/11/2021 20:33:14 With:SALLIE SOLORZANO MD Address: [address] [place] [address]- When:2-4 days [facility] Evaluation + Plan note No data available for this section [facility] Evaluation noteNo assessment information available [facility] Work Phone: Evaluation note* Diagnosis Skin infection- Primary Unspecified local infection of skin and subcutaneous tissue documented in this encounter [facility]* Diagnosis Onset Date Resolution Status Admit Date Closed fracture of fifth metacarpal bone of left hand acute Sep tember 2024 2:13pm [facility] Work Phone: Hospital Discharge instructions Additional Instructions Follow-up with your counseling appointment as scheduled.[facility] Work Phone: Hospital Discharge instructions Additional Instructions Follow-up with your psychiatrist as instructed as well as the counseling center. [facility] Work Phone: Hospital Discharge instructionsAdditional Instructions Please return to the ER or see your family doctor in 7 days for suture removal [facility] Work Phone: Hospital Discharge instructionsAdditional Instructions Please leave your splint on until you are reevaluated by orthopedics. Please follow-up with them to discuss need for transition to a cast based on your fracture. Return to the ER should you have any [facility] Work Phone: Reason for referral (narrative)No reason for referral information availableParkview Health [facility] Hospital Work Phone: Chief Complaint and Reason [...] am LEFT HAND May 09, 2025 1:38pm Chief Complaint Admit Date lac March 17, 2025 2:12 am LEFT HAND May 09, 2025 1:38pm upper extremity May 10, 2025 12:54am Chief Complaint Admit Date lac March 17, 2025 2:12 am LEFT HAND May 09, 2025 1:38pm upper extremity May 10, 2025 12:54am LEFT HAND May 13, 2025 2:13pm Reason for Visit Admit Date Closed fracture of fifth metacarpal bone of left hand May 13, 2025 2:13pm Chief Complaint Admit Date lac March 17, 2025 2:12 am LEFT HAND May 09, 2025 1:38pm upper extremity May 10, 2025 12:54am LEFT HAND May 13, 2025 2:13pm LEFT HAND June 08, 2025 3: 09pm Room 1 June 08, 2025 3: 16pm Reason for Visit Admit Date Closed fracture of fifth metacarpal bone of left hand May 13, 2025 2:13pm Closed fracture of fifth metacarpal bone of left hand June 08, 2025 3:09pm Summary Purpose Family History No Family History Records FoundNo Family History Records FoundNo Family History Records FoundNo Family History Records FoundNo Family History Records FoundNo Family History Records Found Advance Directives No Advanced Directives Records Found Advance Directive Response Recorded Date/ Time Do you have a Healthcare Power of Science Instructor? No January 02, 2025 5:46pm Do you have a Healthcare Power of Science Instructor? No March 17, 2025 2:19am Advance Directive Response Recorded Date/ Time Do you have a Healthcare Power of Science Instructor? No March 17, 2025 2:19am Advance Directive Response Recorded Date/ Time Do you have a Healthcare Power of Science Instructor? No March 17, 2025 2:19am Do you have a Healthcare Power of Science Instructor? No May 10, 2025 12:54am Additional Source Comments Goals (unrecognized section and content) Goals may be documented in a n alternate section (unrecognized sect ion and content) No Status Records FoundNo Status Records FoundNo Status Records FoundNo Status Records FoundNo Status Records FoundNo Status Records Found INFORMATION SOURCE (unrecogn ized section and content) DATE CREATED AUTHOR 12/07/2021 Cuong Agrawal al DATE CREATED AUTHOR AUTHOR'S ORGANIZ ATION 06/28/2022 [facility] DATE CREATED AUTHOR AUTHOR'S ORGANIZ ATION 10/19/2023 [facility] DATE CREATED AUTHOR AUTHOR'S ORGANIZ ATION 04/14/2024 [facility] DATE CREATED AUTHOR AUTHOR'S ORGANIZ ATION 08/23/[address] [facility] DATE CREATED AUTHOR AUTHOR'S ORGANIZ ATION 07/07/2025 [facility] Reason for Visit (unrecogniz ed section and [...] with food, greater than/equal to 350 calories. 1859 (Given - Provid er: Rekha Hughes RN) sertraline (ZOLOFT) 50 MG tablet 50 mg (COMPLETED) 50 mg, Oral, ONCE, 1 dose, On 08/06/22 at 2000 2016 (Given - Provid er: Jocelyne Bryan RN) Care Teams (unrecognized sec tion and content) Compensation Associate Relationship Specialty Start Date End Date Sallie Solorazno MD [address] [place] [id number] PCP - General Pediatrics 01/24/21 Compensation Associate Relationship Specialty Start Date End Date Sallie Solorzano MD [address] [place] [address] [id number] PCP - General Pediatrics 01/24/21 Team Status: [...] Dr. Whitney Santo MD Emergency Provider Active Compensation Associate Relationship Specialty Start Date End Date Sallie Solorzano [address] [facility] [address] [place] [address] PCP - General Pediatrics 01/24/23 Compensation Associate Relationship Specialty Start Date End Date Sallie Solorzano [address] [facility] [address] [place] [id number] PCP - General Pediatrics 01/24/23 Team Status: [...] May 09, 2025 End: May 09, 2025 Team Status: Inactive Member Role/Relationship Status Dates Dr. Sallie Solorzano MD Primary Care Provider Active Start: May 10, 2025 End: May 10, 2025 Dr. Adebayo Tapia DO Emergency Provider Active Start: May 10, 2025 End: May 10, 2025 Team Status: Inactive Member Role/Relationship Status Dates Dr. Sallie Solorzano MD Primary Care Provider Active Start: May 09, 2025 End: May 09, 2025 Ed Physician Provider Attending Provider Active Start: May 09, 2025 End: May 09, 2025 Ed Physician Provider Emergency Provider Active Start: May 09, 2025 End: May 09, 2025 Team Status: Inactive Member Role/Relationship Status Dates Dr. Sallie Solorzano MD Primary Care Provider Active Start: May 13, 2025 End: May 13, 2025 Dr. Sallie Solorzano MD Referring Provider Active Start: May 13, 2025 End: May 13, 2025 Jamie Cameron MD Attending Provider Active St art: May 13, 2025 End: May 13, 2025 Team Status: Active Member Role/Relationship Status Dates Dr. Sallie Solorzano MD Primary care physician Active Team Status: Inactive Member Role/Relationship Status Dates Dr. Sallie Solorzano MD Primary care physician Active Start: March 17, 2025 End: March 17, 2025 Dr. Adebayo Tapia DO Attending physician Active Start: March 17, 2025 End: March 17, 2025 Dr. Adebayo Tapia DO Emergency Department Physician A ctive Start: March 17, 2025 End: March 17, 2025 Team Status: Inactive Member Role/Relationship Status Dates Dr. Sallie Solorzano MD Primary care physician Active Start: May 09, 2025 End: May 09, 2025 Ed Physician Provider Attending physician Active Start: May 09, 2025 End: May 09, 2025 Ed Physician Provider Emergency Departme nt Physician Active Start: May 09, 2025 End: May 09, 2025 Team Status: Inactive Member Role/Relationship Status Dates Dr. Sallie Solorzano MD Primary care physician Active Start: May 10, 2025 End: May 10, 2025 Dr. Adebayo Tapia DO Attending physician Active Start: May 10, 2025 End: May 10, 2025 Dr. Adebayo Tapia DO Emergency Departme nt Physician Active Start: May 10, 2025 End: May 10, 2025 Team Status: Inactive Member Role/Relationship Status Dates Dr. Sallie Solorzano MD Primary care physician Active Start: May 13, 2025 End: May 13, 2025 Dr. Sallie Solorzano MD Referring Provider Active Start: May 13, 2025 End: May 13, 2025 Jamie Cameron MD Attending physician Active S tart: May 13, 2025 End: May 13, 2025 Team Status: Inactive Member Role/Relationship Status Dates Dr. Sallie Solorzano MD Primary care physician Active Start: June 08, 2025 End: June 08, 2025 Dr. Sallie Solorzano MD Referring Provider Active Start: June 08, 2025 End: June 08, 2025 Jamie Cameron MD Attending physician Active S tart: June 08, 2025 End: June 08, 2025 Team Status: Inactive Member Role/Relationship Status Dates Dr. Sallie Solorzano MD Primary care physician Active Start: June 08, 2025 End: June 08, 2025 Dr. Paulo Khan MD Attending physician Active Start: June 08, 2025 End: June 08, 2025 Source Comments (unrecognize d section and content) In the event this informatio n is protected by the Federal Confidentiality of Alcohol and Drug Abuse Patient Records regulations: The Federal rules restrict any use of the information to criminally investigate or prosecute any alcohol or drug abuse patient.[facility] the event this information is protected by the Federal Confidentiality of Alcohol and Drug Abuse Patient Records regulations: The Federal rules restrict any use of the information to criminally investigate or prosecute any alcohol or drug abuse patient.[facility] FOR RECORDS PERTAINING TO PATIENTS WHO [...] BE BASED ON THE PRIMARY CLINICAL RECORDS. [facility] [employer] [facility]. provides no warranty or guarantee of the accuracy or completeness of information in this document.
== END 2025-07-18 15:40 | disposition left against medical advice (07) ==
LOC: ED 15:35
PROVIDERS: Emergency Provider Emergency Medicine; PCP Pediatrics; Visit Provider Emergency Medicine
DX: B34.9 Viral infection, unspecified (principal); F17.210 Nicotine dependence, cigarettes, uncomplicated
CPT/HCPCS: 99282